=== PATIENT | female | born 1990 | race Caucasian/White ===

== ENCOUNTER → 2017-03-21 15:00 | Outpatient (CLI) | payer MEDICAID, SELFPAY | PROVIDERS: Family Provider Internal Medicine; PCP Internal Medicine; Visit Provider Nurse Practitioner Women's Health | DX: R30.0 Dysuria (principal) | CPT/HCPCS: 87077; 87086; 87088; 87186 ==

== ENCOUNTER → 2017-04-07 14:37 | Outpatient (CLI) | payer MEDICAID, SELFPAY ==
[2017-04-07 16:39] LABS: Absolute Lymphocyte Count 2.45 X10^3/ul (0.83-4.51); Absolute Neutrophil Count 4.9 X10^3/uL (2.0-7.7); Basophil# 0.01 X10^3/uL; Basophil% 0.1 % (0-1); Eosinophil# 0.05 X10^3/uL; Eosinophils% 0.6 % (0-5); Hematocrit 36.7 % (37-47); Hemoglobin 12.3 g/dl (12.0-15.0); Lymphocyte # 2.45 X10^3/ul (4.0); Lymphocyte % 29.7 % (19-41); Mean Corp Hgb Conc 33.5 g/gl (32-36); Mean Corpuscular Hgb 29.6 pg (27.0-32.0); Mean Corpuscular Volume 88.2 fL (81-99); Mean Platelet Vol. 9.6 fl (6.2-12.0); Monocyte# 0.86 X10^3/uL; Monocyte% 10.4 % (0-10); Neutrophil # 4.88 X10^3/uL (2.7-7.7); Neutrophil % 59.1 % (47-70); Platelet Count 314 K/mm3 (150-450); RBC Distribution Width CV 13.3 % (11.6-14.6); RBC Distribution Width SD 42.8 fl (35.1-43.9); Red Blood Count 4.16 M/mm3 (4.2-5.4); White Blood Count 8.3 K/mm3 (4.4-11.0)
[2017-04-07 16:40] LABS: POSITIVE COUNT NO; POSITIVE DIFFERENTIAL NO; POSITIVE MORPHOLOGY NO
[2017-04-07 17:38] LABS: Rubella IgG 46.4 IU/mL
[2017-04-09 01:51] LABS: Rapid Plasmin Reagin (RPR) NONREACTIVE (NONREACTIVE)
[2017-04-09 08:08] LABS: HIV 1/0/2 SCREEN 4TH GEN Non Reactive (Non Reactive)
[2017-04-09 11:11] LABS: HEPATITIS B SURFACE AG Negative (Negative)
== END ==
PROVIDERS: Family Provider Internal Medicine; PCP Internal Medicine; Visit Provider Obstetrics & Gynecology
DX: N92.6 Irregular menstruation, unspecified (principal)
CPT/HCPCS: 36415; 85025; 86592; 86703; 86762; 86850; 86900; 87340

== ENCOUNTER → 2017-05-08 17:26 | Outpatient (CLI) | payer MEDICAID, SELFPAY | PROVIDERS: Family Provider Internal Medicine; PCP Internal Medicine; Visit Provider Obstetrics & Gynecology | DX: Z34.90 Encounter for supervision of normal pregnancy, unspecified, unspecified trimester (principal) | CPT/HCPCS: 87077; 87086; 87088; 87186 ==

== ENCOUNTER → 2017-05-26 11:24 | Outpatient (CLI) | payer MEDICAID, SELFPAY ==
--- NOTE | 2017-05-26 11:25 | US_ITS ---
STUDY: SECOND AND THIRD TRIMESTER OBSTETRICAL ULTRASOUND REASON FOR EXAM: Female, 26 years old. Routine survey. LMP: January 12, 2017. TECHNIQUE: Transabdominal PRIOR ULTRASOUND: None. FINDINGS: There is a single intrauterine fetus. The fetus is in a cephalic presentation. There is demonstrated cardiac activity with a heart rate of 150 bpm. There is a normal amniotic fluid volume. The largest amniotic fluid pocket measures 6.8 cm x 5.7 cm. The placenta is anterior with a marginal previa. There are Grade 0 placental changes. The cervix measures 5.5 cm in length. The bilateral adnexal regions are normal. BIOMETRY: BPD: 4.7 cm: 20 weeks, 3 days HC: 17.6 cm: 20 weeks, 1 days AC: 14.9 cm: 20 weeks, 2 days FL: 3.5 cm: 21 weeks, 0 days CI: 79% FL/BPD: 73% FL/HC: FL/AC: 23% HC/AC: 1.18 age by current US: 20 weeks, 4 days. RUY by current US: October 09, 2017. Estimated weight: 355 grams, +/- 50 grams, 98 %. Age by LMP: 19 weeks, 1 days. RUY by LMP: October 19, 2017. ANATOMY: Gender: Male Cranium: Normal lateral ventricles. Normal choroid plexus. Normal cerebellum. Normal cisterna magna. Normal face, nose and lips. Chest: Normal 4-chamber heart. Abdomen/Pelvis: Normal diaphragm. Normal stomach. Normal abdominal wall. Normal cord insertion. Normal 3 vessel cord. Normal kidneys. Normal bladder. Spine: Normal cervical spine. Normal thoracic spine. Normal lumbar spine. Normal sacrum. Extremities: Normal bilateral upper extremities. Normal bilateral lower extremities. US/OB Anatomy Scan IMPRESSION: There is a single live intrauterine gestation with a mean gestational age of 20 weeks and 4 days. Electronically Signed: Memo Carroll MD at 20:56 EDT Tel [phone], Service support ,
== END ==
PROVIDERS: Family Provider Internal Medicine; PCP Internal Medicine; Visit Provider Obstetrics & Gynecology
DX: Z34.81 Encounter for supervision of other normal pregnancy, first trimester (principal)
CPT/HCPCS: 76805

== ENCOUNTER → 2017-06-21 16:26 | Outpatient (CLI) | payer MEDICAID, SELFPAY | PROVIDERS: Family Provider Internal Medicine; PCP Internal Medicine; Visit Provider Nurse Practitioner Women's Health | DX: O09.90 Supervision of high risk pregnancy, unspecified, unspecified trimester (principal); Z3A.00 Weeks of gestation of pregnancy not specified | CPT/HCPCS: 87086; 87088 ==

== ENCOUNTER 2017-07-07 06:51 | Emergency (ER) | payer MEDICAID, SELFPAY ==
[2017-07-07 06:52] VITALS: BP 134/60; PULSE 88; RESP 17; TEMP 36.4; O2SAT 100; BMI 32.6
[2017-07-07] MEDS: 0.9% Normal Saline 1,000 ML 1000 ML IV (07:17)
[2017-07-07] MEDS: Ondansetron 4 MG/2 ML Vial IV (07:17)
--- NOTE | 2017-07-07 07:26 | ED.VISSUMM ---
- ER Visit Summary Date of Service: 07/07/17 Chief Complaint: Nausea, vomiting and diarrhea History of Present Illness: The patient is a 26 F who is 25 weeks and 1 day . Ab0. Due date is 10-19-17. Patient is in the care of Dr. Ever Hart of [facility]. She states she has had nausea vomiting diarrhea intermittently for last week or so. Denies any dysuria hematuria. No fever. Denies any vaginal bleeding or discharge. Physical Examination: Well-appearing young female. Vital signs are stable afebrile. H EENT exam moist wheeze members. Neck nontender no lymphadenopathy. Lungs clear to auscultation bilaterally. Heart regular rate and rhythm no murmur. Abdomen soft. Gravid nontender uterus. Normal bowel sounds. The right upper right lower quadrant nontender. No peritoneal signs. She is moving all 4 extremities. No edema. Back exam nontender no CVA tenderness. Neurologically she is awake alert without focal motor deficits. Test Results: None Emergency Department Course and Treatment: Will be treated with IV fluids, Zofran and have a p.o. challenge. Treatment Plan: She will be reevaluated. Once she can hold down p.o. fluids she will be discharged home. Repeat exam she is doing better at 08 25. Positive p.o. fluids. She was also given Imodium for diarrhea. Disposition: Discharge Impression: Acute nausea, vomiting and diarrhea. at 25 weeks This note was generated with [employer] dictation software. It may contain incorrect words, spelling, and punctuation that were not noted in review of the chart prior to signing ED Disposition - Plan for ED Patient: Disposition: Home or Assisted Living Chief Complaint: Nausea/Vomiting/Diarrhea Instructions: ED Vomiting Diarrhea Nonspecific Ad Referrals: Shanthi Johnson MD [STAFF PHYSICIAN] - 3-5 Days if not improving Additional Instructions: Plenty of fluids and rest. Advance her diet as tolerated. Use the Zofran as needed for nausea. Follow-up the [facility] physician if not improving or return to ER feeling worse.
--- NOTE | 2017-07-07 07:31 | ED.DCSUM_ITS ---
- ER Visit Summary Date of Service: 07/07/17 Chief Complaint: Nausea, vomiting and diarrhea History of Present Illness: The patient is a 26 F who is 25 weeks and 1 day . Ab0. Due date is 10-19-17. Patient is in the care of Dr. Ever Hart of [facility]. She states she has had nausea vomiting diarrhea intermittently for last week or so. Denies any dysuria hematuria. No fever. Denies any vaginal bleeding or discharge. Physical Examination: Well-appearing young female. Vital signs are stable afebrile. H EENT exam moist wheeze members. Neck nontender no lymphadenopathy. Lungs clear to auscultation bilaterally. Heart regular rate and rhythm no murmur. Abdomen soft. Gravid nontender uterus. Normal bowel sounds. The right upper right lower quadrant nontender. No peritoneal signs. She is moving all 4 extremities. No edema. Back exam nontender no CVA tenderness. Neurologically she is awake alert without focal motor deficits. Test Results: None Emergency Department Course and Treatment: Will be treated with IV fluids, Zofran and have a p.o. challenge. Treatment Plan: She will be reevaluated. Once she can hold down p.o. fluids she will be discharged home. Repeat exam she is doing better at 08 25. Positive p.o. fluids. She was also given Imodium for diarrhea. Disposition: Discharge Impression: Acute nausea, vomiting and diarrhea. at 25 weeks This note was generated with [employer] dictation software. It may contain incorrect words, spelling, and punctuation that were not noted in review of the chart prior to signing ED Disposition - Plan for ED Patient: Disposition: Home or Assisted Living Chief Complaint: Nausea/Vomiting/Diarrhea Instructions: ED Vomiting Diarrhea Nonspecific Ad Referrals: Shanthi Johnson MD [STAFF PHYSICIAN] - 3-5 Days if not improving Additional Instructions: Plenty of fluids and rest. Advance her diet as tolerated. Use the Zofran as needed for nausea. Follow-up the [facility] physician if not improving or return to ER feeling worse.
[2017-07-07] MEDS: proMETHazine 25 MG/ML Syringe 12.5 MG IV (07:42)
[2017-07-07] MEDS: Loperamide 2 MG Capsule 4 MG PO (08:17)
[2017-07-07 08:30] LABS: Absolute Lymphocyte Count 3.07 X10^3/ul (0.83-4.51); Absolute Neutrophil Count 4.8 X10^3/uL (2.0-7.7); Basophil# 0.01 X10^3/uL; Basophil% 0.1 % (0-1); Eosinophil# 0.21 X10^3/uL; Eosinophils% 2.3 % (0-5); Hematocrit 30.5 % (37-47); Hemoglobin 10.4 g/dl (12.0-15.0); Lymphocyte # 3.07 X10^3/ul (4.0); Lymphocyte % 33.7 % (19-41); Mean Corp Hgb Conc 34.1 g/gl (32-36); Mean Corpuscular Hgb 31.6 pg (27.0-32.0); Mean Corpuscular Volume 92.7 fL (81-99); Mean Platelet Vol. 9.1 fl (6.2-12.0); Monocyte# 0.99 X10^3/uL; Monocyte% 10.9 % (0-10); Neutrophil # 4.79 X10^3/uL (2.7-7.7); Neutrophil % 52.7 % (47-70); POSITIVE COUNT NO; POSITIVE DIFFERENTIAL NO; POSITIVE MORPHOLOGY NO; Platelet Count 308 K/mm3 (150-450); RBC Distribution Width CV 13.9 % (11.6-14.6); RBC Distribution Width SD 45.7 fl (35.1-43.9); Red Blood Count 3.29 M/mm3 (4.2-5.4); White Blood Count 9.1 K/mm3 (4.4-11.0)
[2017-07-07 08:33] LABS: Anion Gap 7 (5-15); BUN 7 mg/dL (7-18); BUN/Creat Ratio 11.6 RATIO (10-20); Calcium,Total 8.2 mg/dL (8.5-10.1); Chloride 108 mmol/L (98-107); EST Glomerular Filtration Rate 125 mL/min (>60); Est Glom Filt Rate - Afr Amer 151 mL/min (>60); Estimated Creatinine Clearance 120.54 ml/min; Glucose 84 mg/dL (74-106); Potassium 3.5 mmol/L (3.5-5.1); Sodium Level 139 mmol/L (136-145)
[2017-07-07 08:41] VITALS: BP 105/66; BP 107/60; BP 107/62; PULSE 76; PULSE 77; PULSE 84
[2017-07-07 08:45] VITALS: BP 105/66; PULSE 84; TEMP -10; TEMP 14; O2SAT 100
== END 2017-07-07 08:55 | disposition home or self-care (01) ==
PROVIDERS: Emergency Provider Emergency Medicine
DX: O21.2 Late vomiting of pregnancy (principal); O26.891 Other specified pregnancy related conditions, first trimester; R19.7 Diarrhea, unspecified; Z3A.25 25 weeks gestation of pregnancy; Z87.891 Personal history of nicotine dependence
CPT/HCPCS: 80048; 85025; 96361; 96374; 96375; 99284; J7030; A4216; J2405

== ENCOUNTER → 2017-07-21 14:12 | Outpatient (CLI) | payer MEDICAID, SELFPAY ==
[2017-07-21 15:25] LABS: Absolute Lymphocyte Count 2.19 X10^3/ul (0.83-4.51); Absolute Neutrophil Count 3.9 X10^3/uL (2.0-7.7); Basophil# 0.01 X10^3/uL; Basophil% 0.1 % (0-1); Eosinophil# 0.06 X10^3/uL; Eosinophils% 0.9 % (0-5); Hematocrit 29.3 % (37-47); Hemoglobin 9.7 g/dl (12.0-15.0); Lymphocyte # 2.19 X10^3/ul (4.0); Lymphocyte % 31.6 % (19-41); Mean Corp Hgb Conc 33.1 g/gl (32-36); Mean Corpuscular Hgb 29.3 pg (27.0-32.0); Mean Corpuscular Volume 88.5 fL (81-99); Mean Platelet Vol. 8.9 fl (6.2-12.0); Monocyte# 0.79 X10^3/uL; Monocyte% 11.4 % (0-10); Neutrophil # 3.86 X10^3/uL (2.7-7.7); Neutrophil % 55.9 % (47-70); Platelet Count 304 K/mm3 (150-450); RBC Distribution Width CV 13.2 % (11.6-14.6); Red Blood Count 3.31 M/mm3 (4.2-5.4); White Blood Count 6.9 K/mm3 (4.4-11.0)
[2017-07-21 15:37] LABS: Glucose Challenge Gest 1H 50g 86 mg/dL (70-140)
[2017-07-21 15:45] LABS: POSITIVE COUNT NO; POSITIVE DIFFERENTIAL NO; POSITIVE MORPHOLOGY NO
== END ==
PROVIDERS: Nurse Practitioner Women's Health; Visit Provider Obstetrics & Gynecology
DX: O09.90 Supervision of high risk pregnancy, unspecified, unspecified trimester (principal)
CPT/HCPCS: 82950; 85025; 86850; 86900

== ENCOUNTER → 2017-07-24 15:49 | Outpatient (CLI) | payer MEDICAID, SELFPAY ==
--- NOTE | 2017-07-24 15:49 | DT_ITS ---
This patient was seen during an EMR downtime July 24, 2017 - July 31, 2017. This patient may have a combination of paper and electronic documentation or all paper documentation. All documentation is viewable within the e-chart portion of [employer] for each patient visit.
--- NOTE | 2017-07-24 16:00 | US_ITS ---
STUDY: SECOND AND THIRD TRIMESTER OBSTETRICAL ULTRASOUND - LIMITED REASON FOR EXAM: Female, 26 years old. Placenta previa LMP: PRIOR ULTRASOUND: None. TECHNIQUE: Transabdominal ultrasound evaluation was performed. FINDINGS: There is a single intrauterine fetus. The fetus is in a cephalic presentation. There is demonstrated cardiac activity with a heart rate of 138 bpm. There is a normal amniotic fluid volume. The largest amniotic fluid pocket measures 7.1 cm. The amniotic fluid index (NICK) is within normal limits. The placenta is is not seen anywhere near the internal os of the cervix.. There are Grade 0 placental changes. The cervix measures cm in length. BIOMETRY: BPD: 7.8 cm 31 weeks, 3 days HC: 28.7 cm 31 weeks, 5 days AC: 25.4 cm : 29 weeks, 4 days FL: 5.7 cm: 29 weeks, 6 days age by current US: 30 weeks, 5 days. RUY by current US: 09/27/2017. Estimated weight: 1489 grams, +/- 217 grams, 98 percentile. Gender: US/OB Limited With Biometrics IMPRESSION: There is no placenta previa and no abruptio placentae. The fetus is in a cephalic presentation and longitudinal lie with composite measurements averaging out to be equivalent to 30 weeks 5 days +/- 5 days with an expected date of delivery of 09/27/2017. There is an estimated weight 148 9 g. This is in the 98th percentile Electronically Signed: Kali Julio, at 7:51 EDT Tel , Service support ,
== END ==
PROVIDERS: Visit Provider Nurse Practitioner Women's Health
DX: O44.03 Complete placenta previa NOS or without hemorrhage, third trimester (principal); Z3A.30 30 weeks gestation of pregnancy
CPT/HCPCS: 76816

== ENCOUNTER 2017-08-02 18:17 | Emergency (ER) | payer MEDICAID, SELFPAY ==
[2017-08-02 18:18] VITALS: BP 137/80; PULSE 101; RESP 18; TEMP 37.1; O2SAT 99; BMI 32.2
--- NOTE | 2017-08-02 19:05 | EKG12_ITS ---
Test Reason : DIZZINESS Blood Pressure : / mmHG Vent. Rate : 093 BPM Atrial Rate : 093 BPM P-R Int : 124 ms QRS Dur : 088 ms QT Int : 354 ms P-R-T Axes : 015 037 -05 degrees QTc Int : 440 ms Normal sinus rhythm Nonspecific T wave abnormality Abnormal ECG Confirmed by WIN BOLAND, JASON ([id number]), senior editor ABE MEYER ([id number]) on 08/04/2017 2:47:31 PM Referred By: Shanthi Johnson Confirmed By:JASON WALDEN MD
--- NOTE | 2017-08-02 19:09 | ED.DCSUM_ITS ---
- ER Visit Summary Date of Service: 08/02/17 Chief Complaint: Dizzy and History of Present Illness: The patient is a 26 F whose felt weak and dizzy for a while but symptoms seem to be worse today. She recently found out she is anemic and picked up iron pills today. She is currently 28 weeks . She has had normal movement. Physical Examination: Blood pressure is 137/80, temperature 98.7, heart rate 101 , respiratory rate 18, pulse ox 99% on room air. Patient sitting upright in bed no acute distress. She is alert and talkative. Head neck examination is unremarkable. Heart is regular rate and rhythm. Lung sounds are clear. Abdomen is soft and gravid. There is no focal tenderness. Test Results: EKG is sinus at 93 with lateral T-wave flattening. This is unchanged compared to prior study from August 2012. CBC was a hemoglobin of 9.5 and hematocrit 29.1. This is compared to labs on July 21 of 9.7 and 29.3. Chemistry studies are significant for potassium of 3.1. Urinalysis is unremarkable. Emergency Department Course and Treatment: Patient was given IV fluids here. Repeat vital signs include a blood pressure 112/78 heart rate of 95. heart tones are measured at 152. I spoke with Dr. Johnson, the patient's OB /COMMUNITY ASSISTANT. Patient will be given potassium replacement for a few days. She is instructed to take her iron supplements. She is instructed to take it easy for the next few days and I will write her a work note for tomorrow. Treatment Plan: [] Disposition: Discharge Impression: Hypokalemia This note was generated with [employer] dictation software. It may contain incorrect words, spelling, and punctuation that were not noted in review of the chart prior to signing ED Disposition - Plan for ED Patient: Chief Complaint: Dizziness Referrals: Care Physician,No Primary [Primary Care Provider] -
[2017-08-02] MEDS: 0.9% Normal Saline 1,000 ML 150 ML IV (19:31)
[2017-08-02 19:36] LABS: Bedside Glucose 80 mg/dL (70-110)
[2017-08-02 19:49] LABS: Absolute Lymphocyte Count 2.37 X10^3/ul (0.83-4.51); Absolute Neutrophil Count 3.8 X10^3/uL (2.0-7.7); Basophil# 0.02 X10^3/uL; Basophil% 0.3 % (0-1); Eosinophil# 0.13 X10^3/uL; Eosinophils% 1.8 % (0-5); Hematocrit 29.1 % (37-47); Hemoglobin 9.5 g/dl (12.0-15.0); Lymphocyte # 2.37 X10^3/ul (4.0); Lymphocyte % 33.1 % (19-41); Mean Corp Hgb Conc 32.6 g/gl (32-36); Mean Corpuscular Hgb 28.4 pg (27.0-32.0); Mean Corpuscular Volume 87.1 fL (81-99); Mean Platelet Vol. 9.1 fl (6.2-12.0); Monocyte# 0.83 X10^3/uL; Monocyte% 11.6 % (0-10); Neutrophil # 3.81 X10^3/uL (2.7-7.7); Neutrophil % 53.2 % (47-70); Platelet Count 305 K/mm3 (150-450); RBC Distribution Width CV 13.1 % (11.6-14.6); RBC Distribution Width SD 42.3 fl (35.1-43.9); Red Blood Count 3.34 M/mm3 (4.2-5.4); White Blood Count 7.2 K/mm3 (4.4-11.0)
[2017-08-02 19:51] LABS: POSITIVE COUNT NO; POSITIVE DIFFERENTIAL NO; POSITIVE MORPHOLOGY NO
[2017-08-02 19:57] LABS: Anion Gap 7 (5-15); BUN 8 mg/dL (7-18); BUN/Creat Ratio 13.2 RATIO (10-20); Calcium,Total 8.5 mg/dL (8.5-10.1); Chloride 106 mmol/L (98-107); Creatinine, Serum 0.61 mg/dL (0.55-1.02); EST Glomerular Filtration Rate 124 mL/min (>60); Est Glom Filt Rate - Afr Amer 151 mL/min (>60); Estimated Creatinine Clearance 118.57 ml/min; Glucose 83 mg/dL (74-106); Potassium 3.1 mmol/L (3.5-5.1); Sodium Level 139 mmol/L (136-145)
[2017-08-02 20:07] LABS: Mucous, Urine 0 SEEN /hpf (<or=2+)
[2017-08-02 20:11] LABS: Color, Urine Yellow (Yellow); Glucose, Dipstick Normal (Normal); Ketone-Dipstick Negative (Negative); Leukocyte Esterase-Dipstick 25 /ul (Negative); Nitrite-Dipstick Negative (Negative); Occult Blood-Urine Negative /ul (Negative); Protein-Dipstick Negative (Negative); Specific Gravity, Urine 1.015 (1.002-1.030); Urine Bilirubin Dipstick Negative (Negative); Urine Clarity Cloudy (Clear); Urine Urobilinogen Normal (Normal)
[2017-08-02 20:24] LABS: Bacteria RARE /hpf (None Seen); Red Blood Cells-Urine 0-5 SEEN /hpf (0-5); Squamous Epithelial Cells - UA 5-10 SEEN /hpf (5-10); White Blood Cells 0-5 SEEN /hpf (0-5)
[2017-08-02 20:29] VITALS: BP 112/70; PULSE 95; RESP 16; O2SAT 100
--- NOTE | 2017-08-02 20:45 | ED.RN ---
THIS NURSE CHECKED THE PT HEART TONES, THEY WERE 152
--- NOTE | 2017-08-02 20:50 | ED.DEP ---
ED Disposition - Plan for ED Patient: Disposition: Home or Assisted Living Chief Complaint: Dizziness Instructions: ED Potassium Deficiency Prescriptions: Potassium Chloride [K-Dur] 20 meq PO BID #10 tablet Referrals: Shanthi Johnson MD [STAFF PHYSICIAN] - Keep Ching appointment
[2017-08-02 21:03] VITALS: BP 119/75; PULSE 97; RESP 16; O2SAT 100
== END 2017-08-02 21:08 | disposition home or self-care (01) ==
PROVIDERS: Emergency Provider Emergency Medicine
DX: O26.893 Other specified pregnancy related conditions, third trimester (principal); E87.6 Hypokalemia; O99.013 Anemia complicating pregnancy, third trimester; Z3A.28 28 weeks gestation of pregnancy; Z87.891 Personal history of nicotine dependence; Z79.899 Other long term (current) drug therapy
CPT/HCPCS: 80048; 81001; 82962; 85025; 93005; 96360; 96361; 99285; J7030; J7040; A4216

== ENCOUNTER 2017-08-07 08:55 | Emergency (ER) | payer MEDICAID, SELFPAY ==
[2017-08-07 08:56] VITALS: BP 139/83; PULSE 97; RESP 18; TEMP 36.6; O2SAT 100; BMI 32.2
--- NOTE | 2017-08-07 09:12 | ED.VISSUMM ---
- ER Visit Summary Date of Service: 08/07/17 Chief Complaint: Vomiting and diarrhea History of Present Illness: The patient is a 26 F who with no primary care physician. She is a at 29 weeks and [address] Ever Hart. She reports that at 4:00 this morning she began having vomiting and diarrhea. She has had multiple episodes of each. No blood in either. No black tarry stools. She reports that she has abdominal pain that began after the vomiting. She describes as a crampy pain is 10 out of 10 severity. She denies any vaginal bleeding or discharge. She has had normal movement. No dysuria. Patient denies sick contacts. Has not been camping out of the country. No possible bad food exposure. Does not drink well water. No recent antibiotic use. Physical Examination: Vitals: Stable. Afebrile. General: Well-nourished and well-developed. Head: Normocephalic atraumatic. Neck: Supple, no lymphadenopathy. No JVD. Nontender. Cardiovascular: Regular rate and rhythm. No murmurs. Respiratory: No respiratory distress. Clear to auscultation bilaterally. Abdominal: Soft, mild diffuse tenderness to palpation, nondistended, normal bowel sounds. No guarding, rebound, or peritoneal signs. Gravid uterus. Back: Nontender. Extremities: Nontender, no edema. Skin: Normal color, no rash. Neurologic: Alert and oriented ?3. Cranial nerves II through XII are intact. Normal strength and sensation. Psych: Normal affect. Test Results: CBC is marked for a white count of 12.0, H&H of 10.7 33.2. Chem-7 is marked potassium 3.3, BUN/creatinine ratio of 11.6, calcium 8.7. Emergency Department Course and Treatment: Patient had an IV placed. She was given 2 L normal saline and Zofran IV. She is resting comfortably. She has had no vomiting or diarrhea while here. Treatment Plan: Patient reports that she already has K-Dur at home. She will be discharged with Zofran for her nausea. Instructed to follow-up Dr. Desmond Johnson, who is next electrical power station technician for no doc, in 1-2 days if not improving. Follow-up Dr. Johnson as scheduled. Return to the emergency department for any worsening symptoms. Disposition: To home in improved and stable condition. Impression: 1. Vomiting/diarrhea. 2. Third trimester . This note was generated with [employer] dictation software. It may contain incorrect words, spelling, and punctuation that were not noted in review of the chart prior to signing ED Disposition - Plan for ED Patient: Chief Complaint: Nausea/Vomiting/Diarrhea Instructions: ED Vomiting Diarrhea Nonspecific Ad Prescriptions: Ondansetron [Zofran Odt] 4 mg PO Q8H PRN PRN #10 tablet PRN Reason: Nausea Referrals: Desmond Johnson MD [STAFF PHYSICIAN] - 1-2 Days if not improving
[2017-08-07 09:30] LABS: Hematocrit 33.2 % (37-47); Hemoglobin 10.7 g/dl (12.0-15.0); Mean Corp Hgb Conc 32.2 g/gl (32-36); Mean Corpuscular Hgb 27.9 pg (27.0-32.0); Mean Corpuscular Volume 86.7 fL (81-99); Platelet Count 289 K/mm3 (150-450); RBC Distribution Width CV 13.1 % (11.6-14.6); Red Blood Count 3.83 M/mm3 (4.2-5.4); Scan Indicated on CBC? Y/N NO
[2017-08-07] MEDS: Ondansetron 4 MG/2 ML Vial IV (09:38)
[2017-08-07] MEDS: 0.9% Normal Saline 1,000 ML 1000 ML IV ×2 (09:38→10:34)
[2017-08-07 09:47] LABS: Anion Gap 7 (5-15); BUN 7 mg/dL (7-18); BUN/Creat Ratio 11.6 RATIO (10-20); Calcium,Total 8.3 mg/dL (8.5-10.1); Chloride 106 mmol/L (98-107); EST Glomerular Filtration Rate 125 mL/min (>60); Est Glom Filt Rate - Afr Amer 151 mL/min (>60); Estimated Creatinine Clearance 120.54 ml/min; Glucose 82 mg/dL (74-106); Potassium 3.3 mmol/L (3.5-5.1); Sodium Level 136 mmol/L (136-145)
== END 2017-08-07 11:30 | disposition home or self-care (01) ==
PROVIDERS: Emergency Provider Emergency Medicine
DX: O21.2 Late vomiting of pregnancy (principal); O26.893 Other specified pregnancy related conditions, third trimester; R19.7 Diarrhea, unspecified; Z3A.29 29 weeks gestation of pregnancy; Z79.899 Other long term (current) drug therapy
CPT/HCPCS: 80048; 85027; 96361; 96374; 99284; J7030; J2405

== ENCOUNTER 2017-08-18 19:39 | Emergency (ER) | payer OTHER, MEDICAID, SELFPAY ==
[2017-08-18 19:40] VITALS: BP 109/66; PULSE 83; RESP 14; TEMP 36.1; O2SAT 100; BMI 32.9
--- NOTE | 2017-08-18 19:46 | ED.RN ---
THIS RN EDUCATED PT TO FILL OUT A QUANTROS. PT REPORTS HER ORACLE DATABASE CONSULTANT WAS GOING TO SHOW HER HOW TO PROPERLY FILE A REPORT.
--- NOTE | 2017-08-18 19:59 | CT_ITS ---
STUDY: CT FACIAL BONES WITHOUT CONTRAST REASON FOR EXAM: Female, 26 years old. Right facial injury RADIATION DOSAGE (If Supplied By Facility): CTDIvol = ( 29.38 ) mGy, DLP = ( 510.73 ) mGycm TECHNIQUE: The patient was scanned in a multi detector CT scanner. Sagittal and coronal images were reconstructed. Individualized dose optimization techniques were used for this CT. COMPARISON: None. FINDINGS: Normal soft tissue structures. Normal orbital ire[place] and orbital contents. Normal nasal bones and anterior nasal spine. Normal facial bones. There is no demonstrated fracture. Normal visualized paranasal sinuses. CT/Sinus/Facial Bone IMPRESSION: Normal unenhanced CT of the facial bones. Electronically Signed: Devendra Salazar MD at 20:24 EDT , Service support ,
--- NOTE | 2017-08-18 20:29 | ED.VISSUMM ---
- ER Visit Summary Date of Service: 08/18/17 Chief Complaint: [Facial injury] History of Present Illness: The patient is a 26 F [presents to the emergency department with complaint of facial pain after sustaining an injury to the right side of her face 2 days ago. 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 Patient then attempted to punch the dispenser loose and the dispenser came up and struck her in the right side of the face. No loss of consciousness. Patient has been taking ibuprofen and Tylenol but complains of headache and right-sided facial pain. Patient complains of pain when chewing. Patient did vomit once yesterday but she is 31 weeks and is not sure if this was related to head injury versus just her nausea and vomiting. Patient states that the injury happened while at work.] Physical Examination: [HEENT-PERRLA, EOMI. Cranial nerves II through XII grossly intact. TMs clear. Mucous membranes moist. No adenopathy. Patient has some mild ecchymosis noted to the right lateral orbit. She has some soft tissue swelling over the right zygomatic arch. No bony step-offs or depressions noted. Extraocular muscle movement is normal. No evidence of entrapment. Cardiovascular-regular rate and rhythm without murmur or ectopy Lungs-clear to auscultation, chest wall stable without crepitus or subcu emphysema Abdomen-normoactive bowel sounds, soft, nontender, no rebound or rigidity, no peritoneal signs. Extremities-intact ?4, normal range of motion, normal pulses, atraumatic] Test Results: [CT of the facial bones was negative for fractures] Emergency Department Course and Treatment: [Patient advised use Tylenol for discomfort] Treatment Plan: [Tylenol and follow-up with corporate care] Disposition: [Discharged home in stable condition] Impression: [Facial contusion] This note was generated with [employer] dictation software. It may contain incorrect words, spelling, and punctuation that were not noted in review of the chart prior to signing ED Disposition - Plan for ED Patient: Chief Complaint: Headache Referrals: Lili Goddard MD [Primary Care Provider] -
--- NOTE | 2017-08-18 20:32 | ED.DCSUM_ITS ---
- ER Visit Summary Date of Service: 08/18/17 Chief Complaint: [Facial injury] History of Present Illness: The patient is a 26 F [presents to the emergency department with complaint of facial pain after sustaining an injury to the right side of her face 2 days ago. 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 Patient then attempted to punch the dispenser loose and the dispenser came up and struck her in the right side of the face. No loss of consciousness. Patient has been taking ibuprofen and Tylenol but complains of headache and right-sided facial pain. Patient complains of pain when chewing. Patient did vomit once yesterday but she is 31 weeks and is not sure if this was related to head injury versus just her nausea and vomiting. Patient states that the injury happened while at work.] Physical Examination: [HEENT-PERRLA, EOMI. Cranial nerves II through XII grossly intact. TMs clear. Mucous membranes moist. No adenopathy. Patient has some mild ecchymosis noted to the right lateral orbit. She has some soft tissue swelling over the right zygomatic arch. No bony step-offs or depressions noted. Extraocular muscle movement is normal. No evidence of entrapment. Cardiovascular-regular rate and rhythm without murmur or ectopy Lungs-clear to auscultation, chest wall stable without crepitus or subcu emphysema Abdomen-normoactive bowel sounds, soft, nontender, no rebound or rigidity, no peritoneal signs. Extremities-intact ?4, normal range of motion, normal pulses, atraumatic] Test Results: [CT of the facial bones was negative for fractures] Emergency Department Course and Treatment: [Patient advised use Tylenol for discomfort] Treatment Plan: [Tylenol and follow-up with corporate care] Disposition: [Discharged home in stable condition] Impression: [Facial contusion] This note was generated with [employer] dictation software. It may contain incorrect words, spelling, and punctuation that were not noted in review of the chart prior to signing ED Disposition - Plan for ED Patient: Chief Complaint: Headache Referrals: Lili Goddard MD [Primary Care Provider] -
--- NOTE | 2017-08-18 20:32 | ED.DEP ---
ED Disposition - Plan for ED Patient: Chief Complaint: Headache Instructions: ED Contusion Face Referrals: Lili Goddard MD [Primary Care Provider] - [facility] [GROUP OF PHYSICIANS] - 3-5 Days
--- NOTE | 2017-08-18 20:33 | DCINST.ED_ITS ---
ED Disposition - Plan for ED Patient: Chief Complaint: Headache Instructions: ED Contusion Face Referrals: Lili Goddard MD [Primary Care Provider] - [facility] [place] [GROUP OF PHYSICIANS] - 3-5 Days
[2017-08-18 20:52] VITALS: BP 131/70; PULSE 87; RESP 17; O2SAT 98
== END 2017-08-18 20:53 | disposition home or self-care (01) ==
LOC: ED 20:02
PROVIDERS: Emergency Provider Emergency Medicine; Family Provider Internal Medicine; PCP Internal Medicine
DX: O9A.213 Injury, poisoning and certain other consequences of external causes complicating pregnancy, third trimester (principal); S00.11XA Contusion of right eyelid and periocular area, initial encounter; Z3A.31 31 weeks gestation of pregnancy; W22.8XXA Striking against or struck by other objects, initial encounter; Y93.9 Activity, unspecified; Y92.9 Unspecified place or not applicable
CPT/HCPCS: 70486; 99283

== ENCOUNTER 2017-08-20 18:30 | Outpatient (CLI) | payer MEDICAID, SELFPAY ==
--- NOTE | 2017-08-20 19:07 | OB.TRI.NOTE ---
- Problem List (1) False labor Status: Acute History of Present Illness Date of Service: 08/20/17 Was patient seen by the physician?: Yes Reason For Visit: R/O LABOR Date of Service: 08/20/17 Final RUY: 10/19/17 Gestational age: 31 Weeks and 3 Days History of Present Illness: co quesitonable loss of fluid and some contractions Allergies naproxen Allergy (Verified 08/18/17 19:40) Rash Penicillins Allergy (Verified 08/18/17 19:40) Hives also has hematemesis - Pertinent Past Medical History Medical History: Past Medical History (Last Reviewed 08/15/17 @ 15:12 by Vero Interiano) Depression Surgical History: Past Surgical History (Last Reviewed 08/15/17 @ 15:12 by Vero Interiano) delivery delivered NST - FHR Rate Baby A Baseline: 130 Variability:: Moderate Accelerations:: 15 x 15 Decelerations:: None NST Reactive:: Yes FHR Category:: Category I Uterine Activity:: no regular Impression/Plan threatened labor negative SROM no regular ctx reassuring FHT dc home labor precautions
[2017-08-20 19:10] VITALS: BMI 32.3
[2017-08-20 19:30] LABS: ROM Internal Control Test YES-OK TO RESULT pt. (Internal QC); ROM Patient Test Negative (Negative)
[2017-08-20 20:00] VITALS: RESP 18
== END 2017-08-20 20:00 | disposition home or self-care (01) ==
LOC: WPOUT 18:37 → WP 18:37
PROVIDERS: Family Provider Internal Medicine; PCP Internal Medicine; Visit Provider Obstetrics & Gynecology
DX: O60.03 Preterm labor without delivery, third trimester (principal); Z3A.31 31 weeks gestation of pregnancy
CPT/HCPCS: 59025; 59050; 84112; 99218; G0378

== ENCOUNTER → 2017-09-13 09:56 | Outpatient (CLI) | payer MEDICAID, SELFPAY ==
[2017-09-13 10:21] LABS: Absolute Lymphocyte Count 3.04 X10^3/ul (0.83-4.51); Absolute Neutrophil Count 3.5 X10^3/uL (2.0-7.7); Basophil# 0.01 X10^3/uL; Basophil% 0.1 % (0-1); Eosinophil# 0.14 X10^3/uL; Eosinophils% 1.8 % (0-5); Hematocrit 29.3 % (37-47); Hemoglobin 9.2 g/dl (12.0-15.0); Lymphocyte # 3.04 X10^3/ul (4.0); Lymphocyte % 39.7 % (19-41); Mean Corp Hgb Conc 31.4 g/gl (32-36); Mean Corpuscular Hgb 26.4 pg (27.0-32.0); Mean Platelet Vol. 9.5 fl (6.2-12.0); Monocyte# 0.92 X10^3/uL; Neutrophil # 3.53 X10^3/uL (2.7-7.7); Neutrophil % 46.3 % (47-70); Platelet Count 289 K/mm3 (150-450); RBC Distribution Width CV 13.9 % (11.6-14.6); Red Blood Count 3.49 M/mm3 (4.2-5.4); White Blood Count 7.7 K/mm3 (4.4-11.0)
[2017-09-13 10:26] LABS: POSITIVE COUNT NO; POSITIVE DIFFERENTIAL NO; POSITIVE MORPHOLOGY NO
== END ==
PROVIDERS: Nurse Practitioner Women's Health; Family Provider Internal Medicine; PCP Internal Medicine; Visit Provider Obstetrics & Gynecology
DX: O99.019 Anemia complicating pregnancy, unspecified trimester (principal); Z3A.00 Weeks of gestation of pregnancy not specified
CPT/HCPCS: 36415; 85025

== ENCOUNTER → 2017-09-19 | Outpatient (CLI) | payer MEDICAID, SELFPAY ==
--- NOTE | 2017-09-19 13:29 | US_ITS ---
STUDY: SECOND AND THIRD TRIMESTER OBSTETRICAL ULTRASOUND - LIMITED REASON FOR EXAM: Female, 26 years old. Assess growth. LMP: 01/12/2017. GA (LMP) 35 week 5 day. RUY 10/19/2017. PRIOR ULTRASOUND: 07/24/2017. TECHNIQUE: Transabdominal ultrasound evaluation was performed. FINDINGS: Single live intrauterine gestation, cardiac rate 144 bpm, breech presentation, footling. Cervix 3.25 cm in length, closed. Placenta grade 2, anterior not low-lying. Amniotic fluid index 13.6 cm, normal, deepest vertical pocket 5.4 cm. BIOMETRY: BPD: 9.44 cm: 38 weeks, 4 days HC: 35.12 cm: 41 weeks, 0 days AC: 34.29 cm: 38 weeks, 2 days FL: 7.29 cm: 37 weeks, 3 days age by current US: 38 weeks, 6 days. RUY by current US: 09/27/2017. age by prior ultrasound 38 weeks 6 days with RUY 09/27/2017. Estimated weight: 3462 grams, +/- 505 grams, 98 percentile. A limited anatomic survey was performed for the purpose of assessing position, viability and dates only. No gross anatomic abnormality was observed. US/OB Limited With Biometrics IMPRESSION: Single live intrauterine gestation in breech presentation with normal amniotic fluid index, no evidence of placenta previa, appropriate cardiac activity. Measurements as above. Measurements on today's study are concordant with prior ultrasound. Electronically Signed: Taurus Rosalina, at 17:19 EDT Tel , Service support ,
== END | disposition home or self-care (01) ==
PROVIDERS: Family Provider Internal Medicine; PCP Internal Medicine; Visit Provider Nurse Practitioner Women's Health
DX: O44.20 Partial placenta previa NOS or without hemorrhage, unspecified trimester (principal); Z3A.00 Weeks of gestation of pregnancy not specified
CPT/HCPCS: 76816

== ENCOUNTER → 2017-09-25 15:52 | Outpatient (CLI) | payer MEDICAID, SELFPAY ==
[2017-09-25 19:38] LABS: Group B Strep DNA By PCR POSITIVE (Negative); Probe Check PASS
== END ==
PROVIDERS: Family Provider Internal Medicine; PCP Internal Medicine; Visit Provider Obstetrics & Gynecology
DX: Z34.90 Encounter for supervision of normal pregnancy, unspecified, unspecified trimester (principal)
CPT/HCPCS: 87653

== ENCOUNTER 2017-10-05 09:21 | Outpatient (CLI) | payer MEDICAID, SELFPAY ==
[2017-10-05 09:22] VITALS: BP 127/74; PULSE 97; RESP 16; TEMP 36.6; O2SAT 99; BMI 33.2
--- NOTE | 2017-10-05 09:37 | ED.DCSUM_ITS ---
- ER Visit Summary Date of Service: 10/05/17 Chief Complaint: [] 38 weeks vomiting and diarrhea started today History of Present Illness: The patient is a 26 F [] approximately 38 weeks scheduled for next week, reports she has been doing well with her no abdominal pain no vaginal bleeding she developed diarrhea and vomiting the last few hours the persisted she states she has had diarrhea constantly no blood no antibiotics no exposures she has had vomiting, she does use Zofran intermittently for the vomiting Zofran to this morning did not help, she has no history of any GI elements or other past history that she reports she denies pain in any part of her body simply sense of nausea and diarrhea Physical Examination: [] She is obviously her vital signs are within normal range head neck chest unremarkable the abdomen is soft obviously she has no abdominal pain she has about 2+ edema in her lower extremities that she has had for some time this is not new she is awake alert moving all 4 her joints are not tender she specifically mentions she has no right upper lower or any pain in her abdomen anywhere she denies abdominal pain or bleeding Test Results: [] Emergency Department Course and Treatment: [] This time clinically she looks well screening labs IV fluids Zofran, heart tones, Medicated IV fluids were given, her screening labs were generally unremarkable, nothing acute see those reports, she felt better after taking fluids she has had no vomiting or diarrhea in the emergency department, we spoke with FINISH MACHINE TENDER they agreed she could be discharged home and then shortly after we had spoke with OB she vomited, continue to complain of being nauseated to the point where she is not physically discharged home, I spoke with Dr. Johnson at this time will transfer the patient to FINISH MACHINE TENDER for further management Treatment Plan: [] Disposition: [] Transfer to FINISH MACHINE TENDER unit Impression: [] Approximately 38 weeks , vomiting and diarrhea This note was generated with [employer] dictation software. It may contain incorrect words, spelling, and punctuation that were not noted in review of the chart prior to signing ED Disposition - Plan for ED Patient: Chief Complaint: Nausea/Vomiting/Diarrhea Referrals: Lili Goddard MD [Primary Care Provider] -
[2017-10-05] MEDS: 0.9% Normal Saline 1,000 ML 1000 ML IV (10:05)
[2017-10-05] MEDS: Ondansetron 4 MG/2 ML Vial IV (10:05)
[2017-10-05 10:06] LABS: Absolute Lymphocyte Count 2.47 X10^3/ul (0.83-4.51); Absolute Neutrophil Count 4.7 X10^3/uL (2.0-7.7); Basophil# 0.01 X10^3/uL; Basophil% 0.1 % (0-1); Eosinophil# 0.07 X10^3/uL; Eosinophils% 0.9 % (0-5); Hematocrit 31.1 % (37-47); Hemoglobin 9.6 g/dl (12.0-15.0); Lymphocyte # 2.47 X10^3/ul (4.0); Lymphocyte % 30.5 % (19-41); Mean Corp Hgb Conc 30.9 g/gl (32-36); Mean Corpuscular Hgb 24.9 pg (27.0-32.0); Mean Corpuscular Volume 80.8 fL (81-99); Mean Platelet Vol. 9.3 fl (6.2-12.0); Monocyte# 0.85 X10^3/uL; Monocyte% 10.5 % (0-10); Neutrophil % 57.9 % (47-70); Platelet Count 255 K/mm3 (150-450); RBC Distribution Width CV 14.7 % (11.6-14.6); RBC Distribution Width SD 42.6 fl (35.1-43.9); Red Blood Count 3.85 M/mm3 (4.2-5.4); White Blood Count 8.1 K/mm3 (4.4-11.0)
[2017-10-05 10:08] LABS: POSITIVE COUNT NO; POSITIVE DIFFERENTIAL NO; POSITIVE MORPHOLOGY NO
[2017-10-05 10:21] LABS: AST(SGOT) 17 U/L (15-37); Alanine Aminotransfer ALT/SGPT 13 U/L (13-56); Albumin, Serum 2.5 g/dL (3.2-5.0); Alkaline Phosphatase 144 U/L (45-117); Anion Gap 9 (5-15); BUN 8 mg/dL (7-18); BUN/Creat Ratio 12.9 RATIO (10-20); Bilirubin, Direct 0.14 mg/dL (0.00-0.30); Calcium,Total 8.5 mg/dL (8.5-10.1); Chloride 105 mmol/L (98-107); Creatinine, Serum 0.62 mg/dL (0.55-1.02); EST Glomerular Filtration Rate 121 mL/min (>60); Est Glom Filt Rate - Afr Amer 146 mL/min (>60); Estimated Creatinine Clearance 116.65 ml/min; Globulin 4.6 g/dL (2.2-4.2); Glucose 73 mg/dL (74-106); Lipase 152 U/L (73-393); Potassium 3.4 mmol/L (3.5-5.1); Protein, Total 7.1 g/dL (6.4-8.2); Sodium Level 138 mmol/L (136-145)
[2017-10-05 10:26] LABS: Red Blood Cells-Urine 0 SEEN /hpf (0-5)
[2017-10-05 10:30] LABS: Color, Urine Yellow (Yellow); Glucose, Dipstick Normal (Normal); Ketone-Dipstick Negative (Negative); Leukocyte Esterase-Dipstick 25 /ul (Negative); Nitrite-Dipstick Negative (Negative); Occult Blood-Urine Negative /ul (Negative); Protein-Dipstick Negative (Negative); Specific Gravity, Urine 1.015 (1.002-1.030); Urine Bilirubin Dipstick Negative (Negative); Urine Clarity Clear (Clear); Urine Urobilinogen 1 mg/dl (Normal)
[2017-10-05 10:37] LABS: Bacteria 1+ /hpf (None Seen); Mucous, Urine 1+ /hpf (<or=2+); Squamous Epithelial Cells - UA 0-5 SEEN /hpf (5-10); White Blood Cells 0-5 SEEN /hpf (0-5)
[2017-10-05] MEDS: proMETHazine 25 MG/ML Syringe 12.5 MG IV (13:03)
[2017-10-05] MEDS: 0.9% Normal Saline 1,000 ML 125 ML IV (13:03)
--- NOTE | 2017-10-05 14:12 | ED.DEP ---
ED Disposition - Plan for ED Patient: Chief Complaint: Nausea/Vomiting/Diarrhea Instructions: ED Gastroenteritis Vs Food Poison Referrals: Lili Goddard MD [Primary Care Provider] - Additional Instructions: Go directly to labor and delivery for further evaluation and treatment
[2017-10-05 14:25] VITALS: BP 111/63; PULSE 85; RESP 16; O2SAT 100
--- NOTE | 2017-10-05 14:28 | ED.RN ---
REVIEWED D/C INSTRUCTIONS WITH PT. [facility] PT A&O X 3, RESP EVEN AND UNLABORED, NO DISTRESS NOTED.
[2017-10-05] MEDS: Dextrose 5%-Lactated Ringers 1,000 ML 999 ML IV (14:30)
[2017-10-05 16:49] VITALS: BMI 33.6
--- NOTE | 2017-10-06 06:01 | OB.TRI.NOTE ---
- Problem List (1) Nausea & vomiting Status: Acute History of Present Illness Date of Service: 10/05/17 Was patient seen by the physician?: No Reason For Visit: N/V/D Date of Service: 10/05/17 History of Present Illness: nausea and vomiting Allergies naproxen Allergy (Verified 10/05/17 09:22) Rash Penicillins Allergy (Verified 10/05/17 09:22) Hives also has hematemesis - Pertinent Past Medical History Medical History: Past Medical History (Last Reviewed 10/03/17 @ 15:57 by Nasrin Moore) Depression Surgical History: Past Surgical History (Last Reviewed 10/03/17 @ 15:57 by Nasrin Moore) delivery delivered Physical Exam Vitals: Vital Signs Temp Pulse Resp BP Pulse Ox 97.8 F 85 16 111/63 100 10/05/17 09:22 10/05/17 14:25 10/05/17 14:25 10/05/17 14:25 10/05/17 14:25 NST - FHR Rate Baby A Baseline: 135 Variability:: Moderate Accelerations:: 15 x 15 Decelerations:: None NST Reactive:: Yes FHR Category:: Category I Uterine Activity:: no regular Impression/Plan reactive nst nausea vomiting, tolerating po now dc home
== END 2017-10-05 17:00 | disposition home or self-care (01) ==
LOC: ED 10:10 → WPOUT 14:49 → WP 14:50
PROVIDERS: Emergency Provider Emergency Medicine; Family Provider Internal Medicine; PCP Internal Medicine; Visit Provider Obstetrics & Gynecology
DX: O21.2 Late vomiting of pregnancy (principal); Z3A.38 38 weeks gestation of pregnancy
CPT/HCPCS: 96361; 96374; 96375; 59025; 59050; 80048; 80076; 81001; 83690; 85025; 99218; 99283; J7030; J7040; A4216; G0378; J2405

== ENCOUNTER 2017-10-12 09:55 | Inpatient (IN) | payer MEDICAID, SELFPAY ==
[2017-10-12] VITALS (16 sets, daily range): BP systolic 98–133; BP diastolic 55–76; PULSE 68–111; RESP 16–18; TEMP 35.8–36.4; O2SAT 94–100; BMI 32.8
--- NOTE | 2017-10-12 | FALS_PTH ---
PATIENT: CEASAR JAQUEZ LOC: [facility] U#:[id number] AGE/SX: 27/F ROOM: WP010 RE10/12/[address]: Dr. Shanthi Johnson MD : 1990 BED: 1 DIS: 10/15/2017 SPEC #: [id number] RECD: 10/13/17 07:56 STATUS: BLAISE RETiffanie #: [id number] VANDANA: 10/12/17 00:[address]: Shanthi Johnson DEPT: SURGICAL PATHOLOGY RECD BY: Bk Lopez ENTERED: 10/13/17 07:56 SP TYPE: FALL TUBES OTHR DR: Dr. Lili Goddard MD Tissues: Fallopian tube Procedures: Surgery Specimen Level II HEADER OPERATION: Tubal ligation PRE-OP DIAGNOSIS: Desires sterilization TISSUE SUBMITTED: Fallopian tubes MICROSCOPIC DIAGNOSIS Right and left fallopian tubes, bilateral partial salpingectomies: Complete cross section fallopian tubes with no pathologic change. AM:sp 10/16/17 MICROSCOPIC DESCRIPTION Slides are reviewed. GROSS DESCRIPTION Received is one container labeled with the patient's name and there is a tie on one fallopian tube designated left fallopian tube. The specimen consists of two fallopian tubes with an average length of 2.5 cm and has a maximal diameter of 0.7 cm. Both fallopian tubes have normal fimbriated ends. No mass lesions are identified. Stripper Opaquer sections are submitted in two cassettes as follows: 1 ? right fallopian tube, 2 - left fallopian tube. / AM:jesus manuel 10/13/17 TC: 4 CPT: 00830 x2
[2017-10-12] MEDS: Lactated Ringers 1,000 ML 999 ML IV (10:50)
[2017-10-12 11:07] LABS: Absolute Lymphocyte Count 2.75 X10^3/ul (0.83-4.51); Absolute Neutrophil Count 4.9 X10^3/uL (2.0-7.7); Basophil# 0.01 X10^3/uL; Basophil% 0.1 % (0-1); Eosinophil# 0.05 X10^3/uL; Eosinophils% 0.6 % (0-5); Hematocrit 31.7 % (37-47); Hemoglobin 9.7 g/dl (12.0-15.0); Lymphocyte # 2.75 X10^3/ul (4.0); Lymphocyte % 32.2 % (19-41); Mean Corp Hgb Conc 30.6 g/gl (32-36); Mean Corpuscular Hgb 24.6 pg (27.0-32.0); Mean Corpuscular Volume 80.5 fL (81-99); Mean Platelet Vol. 9.4 fl (6.2-12.0); Monocyte# 0.84 X10^3/uL; Monocyte% 9.8 % (0-10); Neutrophil # 4.88 X10^3/uL (2.7-7.7); Neutrophil % 57.1 % (47-70); Platelet Count 274 K/mm3 (150-450); RBC Distribution Width CV 14.7 % (11.6-14.6); RBC Distribution Width SD 43.1 fl (35.1-43.9); Red Blood Count 3.94 M/mm3 (4.2-5.4); White Blood Count 8.6 K/mm3 (4.4-11.0)
[2017-10-12 11:10] LABS: POSITIVE COUNT NO; POSITIVE DIFFERENTIAL NO; POSITIVE MORPHOLOGY NO
[2017-10-12] MEDS: Lactated Ringers 1,000 ML 150 ML IV (11:40)
[2017-10-12] MEDS: Sodium Citrate/Citric Acid 30 ML UDC PO (11:54)
[2017-10-12] MEDS: Oxytocin 30 units/NS 500 ml 30 UNITS/500 ML IV.SOLN 167 UNITS IV (12:40)
--- NOTE | 2017-10-12 14:09 | PCM.OPRPT ---
Problem List (1) Previous section Status: Acute Comment: plans RLTCS/BTO. history of postop wound cellulitis; title 19 signed Report of Operation Date of Procedure: 10/12/17 Pre-Operative Diagnosis: Previous ?2 and desired sterilization Post-Operative Diagnosis: Same Surgery/Procedure Performed:: repeat low transverse and bilateral tubal ligation Via Foristell method Description of Surgical Findings:: Normal uterus tubes and ovaries with minimal scar tissue present athletics teacher: Maddie Reyes Type of Anesthesia:: Spinal Special Medications: None Specimen's removed: Male infant vertex Drains: Muniz Estimated Blood Loss (mL): 900 cc Fluids Replaced: Crystalloid Description of Procedure: The patient is a 27-year-old presented for repeat and desired sterilization. Spinal anesthesia was placed without difficulty. Muniz catheter was placed. The patient was placed in the dorsal supine position with leftward tilt. Patient was prepped and draped in the normal sterile fashion. Pfannenstiel skin incision was made with the scalpel and carried through to the underlying layer of fascia with the scalpel. Fascia was nicked in the midline and the incision extended laterally. The rectus bellies were dissected off superiorly and inferiorly with out complication both sharply and bluntly. The peritoneum was entered digitally. The incision was stretched and a low transverse uterine incision was made with the scalpel. The 's head was delivered atraumatically followed by the anterior and posterior shoulders without complication the rest of the infant delivered. The cord was clamped and cut and the infant was handed off to awaiting nurse. The placenta was delivered spontaneously immediately following and was noted to be intact and have a three-vessel cord. The uterus was exteriorized cleared of all clots and debris, and the incision was closed in a single layer closure using #1 Monocryl. Fallopian tubes were elevated and identified bilaterally. The mesosalpinx was transected with the Bovie and the proximal and distal portions of the tubes were tied with 2 o plain suture the communicating portion of the tube bilaterally was removed and excellent hemostasis noted. The uterus was returned to the maternal abdomen and gutters were cleared of all clots and debris. The ovaries and fallopian tubes were noted to be within normal limits. The peritoneum was closed with 3-0 Monocryl in a running fashion. Fascia was closed with 0 PDS in a running fashion. Additional scar tissue from the skin was excised and subcutaneous tissue was reapproximated with 3-0 Monocryl and the skin was closed with 3-0 Monocryl in a subcuticular fashion. Steri-Strips and Mepilex dressing were applied without complication. Patient was taken to recovery in stable condition. Grafts/Implants Used: None - Complications None
[2017-10-12] MEDS: proMETHazine 25 MG/ML Syringe 12.5 MG IV (14:31)
[2017-10-12] MEDS: Lactated Ringers 1,000 ML 100 ML IV (15:52)
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
[2017-10-12] MEDS: Ketorolac 30 MG/ML Syringe IV ×2 (18:05→18:06)
[2017-10-12] MEDS: Acetaminophen 500 MG Tablet 1000 MG PO (18:43)
[2017-10-12] MEDS: Prenatal Vits Tablet 1 TABLET PO (19:45)
[2017-10-13] VITALS (11 sets, daily range): BP systolic 109–129; BP diastolic 48–73; PULSE 90–104; RESP 16–20; TEMP 36.1–36.6; O2SAT 98–100
[2017-10-13] MEDS: Ketorolac 30 MG/ML Syringe IV ×4 (00:22→17:55)
[2017-10-13] MEDS: 0.9% Saline Lock 10 ML Syringe IV ×3 (00:23→17:55)
[2017-10-13] MEDS: Lactated Ringers 1,000 ML 100 ML IV (00:24)
[2017-10-13] MEDS: oxyCODONE 5 MG Tablet PO ×3 (04:37→19:44)
[2017-10-13 05:23] LABS: Hematocrit 25.9 % (37-47); Mean Corp Hgb Conc 30.9 g/gl (32-36); Mean Corpuscular Volume 80.9 fL (81-99); Mean Platelet Vol. 9.3 fl (6.2-12.0); Platelet Count 223 K/mm3 (150-450); RBC Distribution Width CV 14.7 % (11.6-14.6); RBC Distribution Width SD 43.2 fl (35.1-43.9); White Blood Count 8.9 K/mm3 (4.4-11.0)
[2017-10-13 05:25] LABS: Scan Indicated on CBC? Y/N NO
[2017-10-13] MEDS: Ferrous Sulfate 325 MG Tablet PO ×2 (08:08→17:55)
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
--- NOTE | 2017-10-13 17:06 | CASEMGMT ---
Social Work Note Labor and Delivery Unit Called [facility] ([facility]) at 1535, and spoke with Elle in the intake department. Reported that mother of baby (MOB) delivered baby on 10-12-17, of reported active case with [facility], and MOB sharing there is a plan in place to have MOB supervised with children. Let Elle know of MOB's stated plans for self and baby at discharge, as well as for the older children, as MOB's parents, with whom MOB lives are out of town right now. Let Elle know of planned discharge this weekend, likely on Monday. Let Elle know that as there is supervision in place with the other kids, just want to ensure this stated plan is okay for baby. Elle reported that if this typewriter ribbon winder does not hear from [facility] by end of the day (1630) what MOB has shared with this typewriter ribbon winder is adequate. At time of this note, not call from [facility]. Okay to proceed with discharging baby and MOB at time of discharge. MOB plans to stay short term with grandmother, taking baby to this home. Family will be transporting MOB home. See social work note from earlier this date for further details of social work interventions and plan for home going. No other services requested or indicated. -JOSE Marquez, INDUSTRIAL CONTROLS TECHNICIAN
--- NOTE | 2017-10-13 17:20 | PCM.PN.OB ---
Subjective: doing well pain controlled - Physical Exam General: Alert, Oriented x3 Vital Signs Temp Pulse Resp BP Pulse Ox 97 F L 91 18 118/48 L 99 10/13/17 12:24 10/13/17 12:24 10/13/17 12:24 10/13/17 12:24 10/13/17 12:24 Oxygen Delivery Method Room Air Weight: 191 lb Body Mass Index (BMI) 32.8 Finger Stick Blood Glucose 80 Intake and Output for Last 24 Hours 10/11/17 10/12/17 10/13/17 23:59 23:59 23:59 Intake Total 1210 / 1210 3139 / 3139 Output Total 1200 / 1200 3200 / 3200 Balance - / -61 Laboratory Tests Past 24 Hrs 10/13/17 04:45 WBC 8.9 RBC 3.20 L Hgb 8.0 L Hct 25.9 L MCV 80.9 L MCH 25.0 L MCHC 30.9 L RDW 14.7 H RDW Differential 43.2 Plt Count 223 MPV 9.3 Medical Necessity - Tobacco Use Smoking Status: Former smoker Assessment/Plan All Active Problems (Last Reviewed 10/10/17 @ 08:43 by Syl Lincoln) Nausea & vomiting (Acute) GBS (group B Streptococcus carrier), +RV culture, currently (Acute) Large for gestational age fetus affecting management of mother (Acute) Anemia in preg-unspec (Acute) Supervision of high risk , antepartum (Acute) Rh negative status during (Acute) UTI in (Acute) Previous section (Acute) Abdominal wall cellulitis (Resolved) Allergic dermatitis (Resolved) Breech presentation (Resolved) section wound complication (Resolved) False labor (Resolved) Incisional abscess (Resolved) Infertility (Resolved) Marginal placenta previa (Resolved) Supervision of normal (Resolved) s/p RLTCS BTL routine care incresae ambulating
[2017-10-13] MEDS: Prenatal Vits Tablet 1 TABLET PO (22:26)
[2017-10-13] MEDS: Acetaminophen 500 MG Tablet 1000 MG PO (23:35)
[2017-10-14 02:00] VITALS: BP 124/46; PULSE 94; RESP 18; TEMP 36.6
[2017-10-14] MEDS: oxyCODONE 5 MG Tablet PO ×4 (03:04→20:05)
--- NOTE | 2017-10-14 03:13 | PCM.DCCSEC ---
Discharge Diet: No Restrictions Discharge Activity: May Not Drive - for 2 weeks, May not drive while taking narcotic pain medications., May Shower, May Take a Tub Bath - in 7 days May resume sexual activity in: 4-6 weeks Lifting Restrictions: 20 pounds Additional Activity Instructions:: Nothing in the vagina for 4-6 weeks. You may return to work/school in 6 weeks. Call your doctor if your incision/area has: Continuous Slow Oozing, Sudden Increased Bleeding, Increased Pain/ Swelling, Increased Redness, Foul Smelling Discharge Call your doctor if you observe: Fever of 101 or Higher, Using more than one pad per hour - for 2 hours Suture Line Care: Avoid Pulling/Pushing, Avoid Pinching/Bending Cleanse incision/area with: Keep Dressing Clean & Dry Additional Instructions: If you experience any of the following, contact your healthcare provider. Bleeding that soaks a pad every hour for 2 hours Fever 100.4 or higher Unrelieved incision or abdominal pain Swelling, redness, discharge or bleeding from your incision or episiotomy site Your incision begins to separate Problems urinating (including inability to urinate or burning while urinating). Visual changes Severe headache Flu-like symptoms Pain or redness in one of both of your breasts Pain, warmth, tenderness or swelling in your legs, especially the calf area Frequent nausea and vomiting Symptoms of depression or anxiety If you experience any of the following, call 911 or go to the nearest Emergency Room. Chest pain Problems breathing Seizure activity Partial or complete paralysis of a body part, slurred speech, weakness or drooping of the face, or a sudden inability to walk or hold your balance Allergies/Adverse Reactions: Allergies naproxen Allergy (Verified 10/10/17 08:43) Rash Penicillins Allergy (Verified 10/10/17 08:43) Hives also has hematemesis Medications to take at Discharge Ondansetron [Zofran Odt] 4 mg PO Q8H PRN PRN #10 tab 08/07/17 vit no.78-iron 18 mg-folic acid no.1 1 mg-dha 300 mg capsule 1 cap PO QHS 08/18/17 ferrous sulfate 325 mg (65 mg iron) tablet,delayed release 325 mg PO BID #60 tab 09/18/17 Follow-Up: Call to make an appointment with your doctor for an incision check in 1-2 weeks. You will also need a 6 week post- follow up appointment. Test results from this visit will be discussed in further detail at your follow-up appointment, if applicable. Please Follow Up With: Shanthi Johnson MD - Call to make an appointment for an incision check in 1-2 [phone] When: You will need a post- check in 6 weeks. Primary Care Physician: Lili Goddard MD [Primary Care Provider] -
[2017-10-14] MEDS: Ferrous Sulfate 325 MG Tablet PO ×2 (07:49→17:24)
[2017-10-14 09:00] VITALS: BP 123/68; PULSE 101; RESP 20; TEMP 36.4
[2017-10-14] MEDS: Acetaminophen 500 MG Tablet 1000 MG PO ×2 (09:32→17:23)
[2017-10-14 14:00] VITALS: BP 116/61; PULSE 98; RESP 20; TEMP 36.4
[2017-10-14 20:00] VITALS: BP 116/63; PULSE 94; RESP 18; TEMP 36.4; O2SAT 100
[2017-10-14] MEDS: Prenatal Vits Tablet 1 TABLET PO (21:12)
[2017-10-14] MEDS: Senna/Docusate Sodium 1 Tablet PO (21:13)
[2017-10-15 02:00] VITALS: BP 125/71; PULSE 103; RESP 17; TEMP 36.6; O2SAT 98
[2017-10-15] MEDS: oxyCODONE 5 MG Tablet PO ×2 (02:32→08:26)
[2017-10-15] MEDS: Ferrous Sulfate 325 MG Tablet PO (08:26)
[2017-10-15] MEDS: Senna/Docusate Sodium 1 Tablet PO (08:26)
[2017-10-15 08:28] VITALS: BP 108/66; PULSE 92; RESP 16; TEMP 36.3; O2SAT 97
--- NOTE | 2017-10-15 10:32 | PCM.PN.OB ---
Subjective: late entry- seen 10/14 at 1230 pm doing well pain controlled no CP SOB NV - Physical Exam General: Alert, Oriented x3 Vital Signs Temp Pulse Resp BP Pulse Ox 97.3 F L 92 16 108/66 97 10/15/17 08:28 10/15/17 08:28 10/15/17 08:28 10/15/17 08:28 10/15/17 08:28 Oxygen Delivery Method Room Air Weight: 191 lb Body Mass Index (BMI) 32.8 Finger Stick Blood Glucose 80 Intake and Output for Last 24 Hours 10/13/17 10/14/17 10/15/17 23:59 23:59 23:59 Intake Total 3139 / 3139 Output Total 3650 / 3650 Balance -511 / -511 Medical Necessity - Tobacco Use Smoking Status: Former smoker Assessment/Plan All Active Problems (Last Reviewed 10/10/17 @ 08:43 by Syl Lincoln) Nausea & vomiting (Acute) GBS (group B Streptococcus carrier), +RV culture, currently (Acute) Large for gestational age fetus affecting management of mother (Acute) Anemia in preg-unspec (Acute) Supervision of high risk , antepartum (Acute) Rh negative status during (Acute) UTI in (Acute) Previous section (Acute) Abdominal wall cellulitis (Resolved) Allergic dermatitis (Resolved) Breech presentation (Resolved) section wound complication (Resolved) False labor (Resolved) Incisional abscess (Resolved) Infertility (Resolved) Marginal placenta previa (Resolved) Supervision of normal (Resolved) s/p RLTCS BTL routine care dc home tomorrow
--- NOTE | 2017-10-15 10:33 | PCM.PN.OB ---
Subjective: doing well no complaints pain controlled no CP SOB - Physical Exam General: Alert, Oriented x3 Vital Signs Temp Pulse Resp BP Pulse Ox 97.3 F L 92 16 108/66 97 10/15/17 08:28 10/15/17 08:28 10/15/17 08:28 10/15/17 08:28 10/15/17 08:28 Oxygen Delivery Method Room Air Weight: 191 lb Body Mass Index (BMI) 32.8 Finger Stick Blood Glucose 80 Intake and Output for Last 24 Hours 10/13/17 10/14/17 10/15/17 23:59 23:59 23:59 Intake Total 3139 / 3139 Output Total 3650 / 3650 Balance -511 / -511 Medical Necessity - Tobacco Use Smoking Status: Former smoker Assessment/Plan All Active Problems (Last Reviewed 10/10/17 @ 08:43 by Syl Lincoln) Nausea & vomiting (Acute) GBS (group B Streptococcus carrier), +RV culture, currently (Acute) Large for gestational age fetus affecting management of mother (Acute) Anemia in preg-unspec (Acute) Supervision of high risk , antepartum (Acute) Rh negative status during (Acute) UTI in (Acute) Previous section (Acute) Abdominal wall cellulitis (Resolved) Allergic dermatitis (Resolved) Breech presentation (Resolved) section wound complication (Resolved) False labor (Resolved) Incisional abscess (Resolved) Infertility (Resolved) Marginal placenta previa (Resolved) Supervision of normal (Resolved) s/p RLTCS routine care dc home today
--- NOTE | 2017-10-15 10:35 | PCM.DC.SUM ---
Discharge Date and Diagnosis Date of Admission: 07/31/16 Date of Discharge: 10/15/17 - Secondary Discharge Diagnosis Chronic Problems (Last Reviewed 10/10/17 @ 08:43 by Syl Lincoln) PCOS (polycystic ovarian syndrome) (Chronic) Depression (Chronic) Hospital Course and Treatment Operations: - - RLTCS BTL Summary of Care Provided: The patient is a 27 year old F patient underwent a section and had a routine recovery with a return of bowel and bladder function, was ambulating, voiding, and tolerating po, and was stable for discharge to home on POD 3. Discharge Diet: No Restrictions Discharge Activity: May Not Drive - for 2 weeks, May not drive while taking narcotic pain medications., May Shower, May Take a Tub Bath - in 7 days May resume sexual activity in: 4-6 weeks Additional Activity Instructions:: Nothing in the vagina for 4-6 weeks. You may return to work/school in 6 weeks. Call your doctor if your incision/area has: Continuous Slow Oozing, Sudden Increased Bleeding, Increased Pain/ Swelling, Increased Redness, Foul Smelling Discharge Call your doctor if you observe: Fever of 101 or Higher, Using more than one pad per hour - for 2 hours Suture Line Care: Avoid Pulling/Pushing, Avoid Pinching/Bending Cleanse incision/area with: Keep Dressing Clean & Dry Home Medications: Medications to take at Discharge Ondansetron [Zofran Odt] 4 mg PO Q8H PRN PRN #10 tab 08/07/17 vit no.78-iron 18 mg-folic acid no.1 1 mg-dha 300 mg capsule 1 cap PO QHS 08/18/17 ferrous sulfate 325 mg (65 mg iron) tablet,delayed release 325 mg PO BID #60 tab 09/18/17 Oxycodone HCl/Acetaminophen [Percocet 5-325] 1 - 2 tablet PO Q4H PRN PRN 7 Days #28 tablet 10/14/17 Following Prescrptions Were Given to Patient: Oxycodone HCl/Acetaminophen [Percocet 5-325] 1 - 2 tablet PO Q4H PRN PRN 7 Days #28 tablet PRN Reason: Moderate-Severe pain Primary Care Physician: Lili Goddard MD [Primary Care Provider] - Please Follow Up With: Shanthi Johnson MD - Call to make an appointment for an incision check in 1-2 [phone] When: You will need a post- check in 6 weeks. Medical Necessity - Tobacco Use Smoking Status: Former smoker Meaningful Use Info Meaningful Use Diagnoses (Choose all that apply): None applicable
[2017-10-15 10:36] VITALS: BP 119/67; PULSE 99; RESP 16; TEMP 36.5; O2SAT 98
[2017-10-17 11:32] LABS: Pathology Specimen OB SEE PATHOLOGY REPORT
== END 2017-10-15 11:35 | disposition home or self-care (01) | DRG 370 ==
PROVIDERS: Admitting Provider Obstetrics & Gynecology; Family Provider Internal Medicine; PCP Internal Medicine; Visit Provider Obstetrics & Gynecology
PROC: 10D00Z1 Extraction of Products of Conception, Low, Open Approach (ICD-10-PCS; CPT 59514; principal; 2017-10-12 11:45)
DX: O34.211 Maternal care for low transverse scar from previous cesarean delivery (principal); O99.02 Anemia complicating childbirth; Z3A.38 38 weeks gestation of pregnancy; Z37.0 Single live birth; Z87.891 Personal history of nicotine dependence
CPT/HCPCS: 85025; 85027; 85461; 86850; 86900; 88302; 90384; 99218; J7120; A4216; G0378; J2405; J2790

== ENCOUNTER 2017-11-15 14:14 | Emergency (ER) | payer MEDICAID, SELFPAY ==
[2017-11-15 14:17] VITALS: BP 117/66; PULSE 85; RESP 17; TEMP 36.8; O2SAT 99; BMI 29.8
--- NOTE | 2017-11-15 14:32 | ED.VISSUMM ---
- ER Visit Summary Date of Service: 11/15/17 Chief Complaint: Dental pain History of Present Illness: The patient is a 27 F with dental pain which is increasing over the past 2 days. The patient had multiple molars extracted. She was prescribed Ibap[place], but this caused nausea, vomiting, and an itchy rash. She has tried naproxen today with no improvement. No fevers. No trouble breathing or swallowing. No wheezing or shortness of breath. No GI symptoms currently. No confusion. Physical Examination: Vitals unremarkable. Afebrile. No acute distress. Head and neck atraumatic. Dental expection shows multiple molars have been extracted. No significant swelling. No bleeding or discharge noted. Tenderness to palpation to the area, worse over the left mandibular molars. No trismus or tongue elevation. No lymphadenopathy. Good range of motion of her neck. No rash noted. Test Results: None indicated Emergency Department Course and Treatment: I checked her prescription report. She was prescribed 2 days of Ibapah, 2 days ago. I will prescribe a short course of Percocet. She has tolerated this in the past. She will follow-up with her dentist tomorrow. There is no evidence of abscess, dry socket, bleeding, or any other complications. Treatment Plan: As above Disposition: Discharged Impression: 1. Dental pain This note was generated with [employer] dictation software. It may contain incorrect words, spelling, and punctuation that were not noted in review of the chart prior to signing ED Disposition - Plan for ED Patient: Chief Complaint: Dental Referrals: Lili Goddard MD [Primary Care Provider] -
--- NOTE | 2017-11-15 14:36 | ED.DCSUM_ITS ---
- ER Visit Summary Date of Service: 11/15/17 Chief Complaint: Dental pain History of Present Illness: The patient is a 27 F with dental pain which is increasing over the past 2 days. The patient had multiple molars extracted. She was prescribed [place], but this caused nausea, vomiting, and an itchy rash. She has tried naproxen today with no improvement. No fevers. No trouble breathing or swallowing. No wheezing or shortness of breath. No GI symptoms currently. No confusion. Physical Examination: Vitals unremarkable. Afebrile. No acute distress. Head and neck atraumatic. Dental expection shows multiple molars have been extracted. No significant swelling. No bleeding or discharge noted. Tenderness to palpation to the area, worse over the left mandibular molars. No trismus or tongue elevation. No lymphadenopathy. Good range of motion of her neck. No rash noted. Test Results: None indicated Emergency Department Course and Treatment: I checked her prescription report. She was prescribed 2 days of [place], 2 days ago. I will prescribe a short course of Percocet. She has tolerated this in the past. She will follow-up with her dentist tomorrow. There is no evidence of abscess, dry socket, bleeding, or any other complications. Treatment Plan: As above Disposition: Discharged Impression: 1. Dental pain This note was generated with [employer] dictation software. It may contain incorrect words, spelling, and punctuation that were not noted in review of the chart prior to signing ED Disposition - Plan for ED Patient: Chief Complaint: Dental Referrals: Lili Goddard MD [Primary Care Provider] -
--- NOTE | 2017-11-15 14:36 | ED.DEP ---
ED Disposition - Plan for ED Patient: Chief Complaint: Dental Instructions: ED Tooth Pain Prescriptions: Oxycodone HCl/Acetaminophen [Percocet 5/325] 1 tab PO Q6H PRN PRN 2 Days #8 tab PRN Reason: Pain Referrals: Lili Goddard MD [Primary Care Provider] -
== END 2017-11-15 14:45 | disposition home or self-care (01) ==
LOC: ED 14:42
PROVIDERS: Emergency Provider Emergency Medicine; Family Provider Internal Medicine; PCP Internal Medicine
DX: K08.89 Other specified disorders of teeth and supporting structures (principal); F17.290 Nicotine dependence, other tobacco product, uncomplicated
CPT/HCPCS: 99282

== ENCOUNTER → 2017-11-24 17:54 | Outpatient (CLI) | payer MEDICAID, SELFPAY ==
[2017-12-01 14:17] LABS: HPV Reflexed? NOT INDICATED
== END ==
PROVIDERS: Family Provider Internal Medicine; PCP Internal Medicine; Referring Provider Obstetrics & Gynecology; Visit Provider Obstetrics & Gynecology
DX: Z12.4 Encounter for screening for malignant neoplasm of cervix (principal)
CPT/HCPCS: 88175; G0145

== ENCOUNTER 2017-12-29 08:39 | Emergency (ER) | payer MEDICAID, SELFPAY ==
[2017-12-29 08:40] VITALS: BP 121/71; PULSE 86; RESP 16; TEMP 36.3; O2SAT 96; BMI 30.4
--- NOTE | 2017-12-29 08:55 | ED.VISSUMM ---
- ER Visit Summary Date of Service: 12/29/17 Chief Complaint: Right wrist and hand pain with swelling History of Present Illness: The patient is a 27 F who is right-handed presents with right wrist and hand pain for approximate 1-2 weeks. She describes pain in the distribution of the median nerve. She states she awakes from night with a burning sensation in her index long and ring finger. There is improvement when she shakes her hand. She denies history of diabetes or hypothyroidism and has no symptoms of either. She works in the [employer] department at [employer]. She denies history of trauma. She denies fever, chills night sweats. Physical Examination: Vital signs noted and blood pressure is slightly elevated 121/71. BMI is 30.5. There is swelling of the right hand. Median, radial and ulnar function intact. Tinel's sign and Phalen's sign are both positive. Sensation subjectively is altered in the index, long and ring finger. Capillary refill is normal. Flexor mechanism and extensor mechanism of her fingers are intact. There is no evidence of trauma. There is no point tenderness over the distal radius ulna, carpal bones or metacarpal bones. Test Results: None Emergency Department Course and Treatment: Since patient reports hives and swelling with Naprosyn she was treated with prednisone and prefabricated cock-up splint. Treatment Plan: Follow-up with Disposition: Discharged to home with appropriate home-going instructions Impression: Carpal tunnel syndrome right initial encounter This note was generated with [employer] dictation software. It may contain incorrect words, spelling, and punctuation that were not noted in review of the chart prior to signing ED Disposition - Plan for ED Patient: Disposition: Home or Assisted Living Chief Complaint: Upper Extremity Injury Instructions: ED Carpal Tunnel Prescriptions: Prednisone [Deltasone] 40 mg PO DAILY #10 tablet Referrals: Lili Goddard MD [Primary Care Provider] - Nathalia Carson DO [STAFF PHYSICIAN] - 5-7 Days Additional Instructions: Wear splint today for comfort. After today wear splint at bedtime only. Take prednisone as instructed until gone. Your prescription was electronically transmitted to [facility] your preferred pharmacy.
[2017-12-29] MEDS: predniSONE 20 MG Tablet 60 MG PO (09:06)
--- NOTE | 2017-12-29 09:10 | ED.DCSUM_ITS ---
- ER Visit Summary Date of Service: 12/29/17 Chief Complaint: Right wrist and hand pain with swelling History of Present Illness: The patient is a 27 F who is right-handed presents with right wrist and hand pain for approximate 1-2 weeks. She describes pain in the distribution of the median nerve. She states she awakes from night with a burning sensation in her index long and ring finger. There is improvement when she shakes her hand. She denies history of diabetes or hypothyroidism and has no symptoms of either. She works in the [employer] department at [employer]. She denies history of trauma. She denies fever, chills night sweats. Physical Examination: Vital signs noted and blood pressure is slightly elevated 121/71. BMI is 30.5. There is swelling of the right hand. Median, radial and ulnar function intact. Tinel's sign and Phalen's sign are both positive. Sensation subjectively is altered in the index, long and ring finger. Capillary refill is normal. Flexor mechanism and extensor mechanism of her fingers are intact. There is no evidence of trauma. There is no point tenderness over the distal radius ulna, carpal bones or metacarpal bones. Test Results: None Emergency Department Course and Treatment: Since patient reports hives and swelling with Naprosyn she was treated with prednisone and prefabricated cock-up splint. Treatment Plan: Follow-up with Disposition: Discharged to home with appropriate home-going instructions Impression: Carpal tunnel syndrome right initial encounter This note was generated with [employer] dictation software. It may contain incorrect words, spelling, and punctuation that were not noted in review of the chart prior to signing ED Disposition - Plan for ED Patient: Disposition: Home or Assisted Living Chief Complaint: Upper Extremity Injury Instructions: ED Carpal Tunnel Prescriptions: Prednisone [Deltasone] 40 mg PO DAILY #10 tablet Referrals: Lili Goddard MD [Primary Care Provider] - Nathalia Carson DO [STAFF PHYSICIAN] - 5-7 Days Additional Instructions: Wear splint today for comfort. After today wear splint at bedtime only. Take prednisone as instructed until gone. Your prescription was electronically transmitted to [facility] your preferred pharmacy.
[2017-12-29 09:17] VITALS: RESP 14
== END 2017-12-29 09:18 | disposition home or self-care (01) ==
LOC: ED 09:05 → PCU 09:11
PROVIDERS: Emergency Provider Emergency Medicine; Family Provider Internal Medicine; PCP Internal Medicine
DX: G56.01 Carpal tunnel syndrome, right upper limb (principal); Z72.0 Tobacco use
CPT/HCPCS: 99283

== ENCOUNTER 2018-03-09 06:47 | Observation (INO) | payer MEDICAID, SELFPAY ==
[2018-03-09] VITALS (12 sets, daily range): BP systolic 103–123; BP diastolic 55–88; PULSE 65–86; RESP 14–18; TEMP 36.8–37.1; O2SAT 92–100; BMI 30.9; BMI 31.1; BMI 31.5; BMI 31.3
--- NOTE | 2018-03-09 07:22 | US_ITS ---
STUDY: ABDOMINAL ULTRASOUND - RIGHT UPPER QUADRANT REASON FOR VISIT: Female, 27 years old. 2 day history of abdominal pain. TECHNIQUE: Ultrasound evaluation of the right upper quadrant was performed with real-time and static henley-scale imaging. TECHNICAL QUALITY: Adequate. COMPARISON: None. FINDINGS: Liver: The liver measures 16.9 cm. There is normal echogenicity of the liver. The bile ducts are within normal limits. There is hepatic color flow. The direction of portal flow is hepatopetal. There is no demonstrated mass lesion. Gallbladder: Normal distended gallbladder. The gallbladder wall measures 2.5 mm. There is a positive sonographic Garcia's sign. There is no pericholecystic fluid. There are multiple echogenic structures within the gallbladder, consistent with multiple gallstones. Common Bile Duct (C.B.D.): The common bile duct measures 3.6 mm. Pancreas: Normal size of the head, body and tail of the pancreas. There is normal echogenicity of the pancreas. There is no demonstrated pancreatic mass or cyst. Right Kidney: Normal size of the right kidney. The right kidney measures 10.8 cm x 5.5 cm x 3.7 cm. Normal renal cortex. The right cortex measures 1.4 cm. There is no demonstrated renal mass or cyst. There is no right hydronephrosis. US/Gallbladder IMPRESSION: Multiple gallstones. Positive sonographic Garcia's sign. Electronically Signed: Memo Carroll MD at 8:51 EST Tel [phone], Service support ,
[2018-03-09] MEDS: 0.9% Normal Saline 1,000 ML 1000 ML IV (07:46)
[2018-03-09] MEDS: fentaNYL 100 MCG/2 ML Ampul 50 MCG IV (07:46)
[2018-03-09] MEDS: Ondansetron 4 MG/2 ML Vial IV ×3 (07:46→22:29)
[2018-03-09 07:49] LABS: Absolute Lymphocyte Count 3.22 X10^3/ul (0.83-4.51); Absolute Neutrophil Count 3.1 X10^3/uL (2.0-7.7); Basophil# 0.02 X10^3/uL; Basophil% 0.3 % (0-1); Eosinophil# 0.13 X10^3/uL; Eosinophils% 1.8 % (0-5); Hematocrit 34.1 % (37-47); Hemoglobin 10.8 g/dl (12.0-15.0); Lymphocyte # 3.22 X10^3/ul (4.0); Lymphocyte % 44.4 % (19-41); Mean Corp Hgb Conc 31.7 g/gl (32-36); Mean Corpuscular Hgb 26.9 pg (27.0-32.0); Mean Corpuscular Volume 84.8 fL (81-99); Mean Platelet Vol. 9.6 fl (6.2-12.0); Monocyte# 0.75 X10^3/uL; Monocyte% 10.3 % (0-10); Neutrophil # 3.12 X10^3/uL (2.7-7.7); Neutrophil % 43.1 % (47-70); Platelet Count 326 K/mm3 (150-450); RBC Distribution Width CV 13.1 % (11.6-14.6); Red Blood Count 4.02 M/mm3 (4.2-5.4); White Blood Count 7.3 K/mm3 (4.4-11.0)
[2018-03-09 07:50] LABS: POSITIVE COUNT NO; POSITIVE DIFFERENTIAL NO; POSITIVE MORPHOLOGY NO
[2018-03-09 07:58] LABS: AST(SGOT) 16 U/L (15-37); Alanine Aminotransfer ALT/SGPT 20 U/L (13-56); Albumin, Serum 3.6 g/dL (3.2-5.0); Alkaline Phosphatase 61 U/L (45-117); Anion Gap 8 (5-15); BUN 15 mg/dL (7-18); BUN/Creat Ratio 21.7 RATIO (10-20); Calcium,Total 7.8 mg/dL (8.5-10.1); Chloride 111 mmol/L (98-107); Creatinine, Serum 0.69 mg/dL (0.55-1.02); EST Glomerular Filtration Rate 106 mL/min (>60); Est Glom Filt Rate - Afr Amer 129 mL/min (>60); Estimated Creatinine Clearance 103.88 ml/min; Globulin 3.7 g/dL (2.2-4.2); Glucose 88 mg/dL (74-106); Lipase 189 U/L (73-393); Potassium 3.6 mmol/L (3.5-5.1); Protein, Total 7.3 g/dL (6.4-8.2); Sodium Level 141 mmol/L (136-145)
[2018-03-09 08:05] LABS: Pregnancy, Serum, hCG Quali. NEGATIVE Negative (0-9 Nonpreg)
--- NOTE | 2018-03-09 09:18 | ED.VISSUMM ---
- ER Visit Summary Date of Service: 03/09/18 Chief Complaint: Abdominal pain History of Present Illness: The patient is a 27 F abdominal pain since yesterday. Worse after eating Macanese food. The pain is sharp and radiates to her back and shoulder on the right. Associate with nausea, vomiting, and diarrhea. Denies any fevers. Denies any history of this in the past. She had a in about 5 months ago. She is not breast-feeding. She has had a history of 3 C-sections, tubal ligation, and a postop infection after 1 of the C-sections requiring a wound VAC. Physical Examination: Afebrile and vital signs unremarkable. Alert and oriented. No acute distress. Heart regular. Lungs clear. Abdomen tender in the right upper quadrant. No guarding or rebound. Skin is normal in color. Test Results: Hemoglobin 10.8 but otherwise labs unremarkable. Urinalysis pending. test negative. Ultrasound showed multiple gallstones and sonographic Garcia sign. No wall thickening, distention, or pericholecystic fluid. Emergency Department Course and Treatment: Patient treated with fluids, Zofran, fentanyl. She had continued pain and required additional pain medicine. She was given morphine. Patient has biliary colic without any evidence of cholecystitis or other complications. She is having intractable pain, requiring multiple doses of IV pain medicine. She was discussed with Dr. Coombs who will admit for surgery later today, this afternoon. The patient was n.p.o. since around 1 AM today when she had some water. She was advised by me to continue to be n.p.o. Treatment Plan: As above Disposition: Admission Impression: 1. Biliary colic This note was generated with [employer] dictation software. It may contain incorrect words, spelling, and punctuation that were not noted in review of the chart prior to signing ED Disposition - Plan for ED Patient: Chief Complaint: Abd Pain Referrals: Lili Goddard MD [Primary Care Provider] -
[2018-03-09 09:19] LABS: Bacteria 0 SEEN /hpf (None Seen); Color, Urine Yellow (Yellow); Glucose, Dipstick Normal (Normal); Ketone-Dipstick Negative (Negative); Leukocyte Esterase-Dipstick Negative /ul (Negative); Mucous, Urine 0 SEEN /hpf (<or=2+); Nitrite-Dipstick Negative (Negative); Occult Blood-Urine 10 /ul (Negative); Protein-Dipstick Negative (Negative); Urine Bilirubin Dipstick Negative (Negative); Urine Clarity Sl. Cloudy (Clear); Urine Urobilinogen Normal (Normal); White Blood Cells 0 SEEN /hpf (0-5)
--- NOTE | 2018-03-09 09:21 | ED.DCSUM_ITS ---
- ER Visit Summary Date of Service: 03/09/18 Chief Complaint: Abdominal pain History of Present Illness: The patient is a 27 F abdominal pain since yesterday. Worse after eating Thai food. The pain is sharp and radiates to her back and shoulder on the right. Associate with nausea, vomiting, and diarrh ea. Denies any fevers. Denies any history of this in the past. She had a C- section in about 5 months ago. She is not breast-feeding. She has had a history of 3 C-sections, tubal ligation, and a postop infection after 1 of the C-sections requiring a wound VAC. Physical Examination: Afebrile and vital signs unremarkable. Alert and oriented. No acute distress. Heart regular. Lungs clear. Abdomen tender in the right upper quadrant. No guarding or rebound. Skin is normal in color. Test Results: Hemoglobin 10.8 but otherwise labs unremarkable. Urinalysis pending. test negative. Ultrasound showed multiple gallstones and sonographic Garcia sign. No wall thickening, distention, or pericholecystic fluid. Emergency Department Course and Treatment: Patient treated with fluids, Zofran, fentanyl. She had continued pain and required additional pain medicine. She was given morphine. Patient has biliary colic without any evidence of cholecystitis or other complications. She is having intractable pain, requiring multiple doses of IV pain medicine. She was discussed with Dr. Coombs who will admit for surgery later today, this afternoon. The patient was n.p.o. since around 1 AM today when she had some water. She was advised by me to continue to be n.p.o. Treatment Plan: As above Disposition: Admission Impression: 1. Biliary colic This note was generated with [employer] dictation software. It may contain incorrect words, spelling, and punctuation that were not noted in review of the chart prior to signing ED Disposition - Plan for ED Patient: Chief Complaint: Abd Pain Referrals: Lili Goddard MD [Primary Care Provider] -
--- NOTE | 2018-03-09 09:21 | NURSING ---
MED SURG BILIARY COLIC JORDAN
[2018-03-09] MEDS: Morphine 4 MG/ML Syringe IV ×3 (09:22→22:29)
[2018-03-09 09:27] LABS: Red Blood Cells-Urine 0-5 SEEN /hpf (0-5); Squamous Epithelial Cells - UA 0-5 SEEN /hpf (5-10)
[2018-03-09] MEDS: 0.9% NaCl Peripheral Flush Adult/Peds IV ×2 (13:18→22:30)
--- NOTE | 2018-03-09 13:34 | EKG12_ITS ---
Test Reason : PRE OP Blood Pressure : / mmHG Vent. Rate : 067 BPM Atrial Rate : 067 BPM P-R Int : 152 ms QRS Dur : 090 ms QT Int : 424 ms P-R-T Axes : 031 057 037 degrees QTc Int : 448 ms Normal sinus rhythm Normal ECG Confirmed by WIN BOLAND, JASON ([id number]), commercial production editor ABE MEYER ([id number]) on 03/14/2018 1:56:53 PM Referred By: Christine Coombs Confirmed By:JASON WALDEN MD
--- NOTE | 2018-03-09 14:44 | HP.PCM_ITS ---
History and Physical Date of Admission: 03/09/18 Chief Complaint: abdominal pain History of Present Illness: 27 y/o WF presents with abdominal pain - severe pain began this morning. She has noted twinges of pain for about a month. Points to right upper quadrant. Seen in ED -normal WBC, normal LFTs. US findings of cholelithiasis. Patient denies fevers. Has had nausea and emesis. denies constipation Has had diarrhea Past Medical History: denies major medical illnesses Past Surgical History: csections - one developed wound infection Medications: denies taking chronic medications Allergies: acetaminophen norco penicillins Social history: TOB use yes Works in [employer] in [facility] Review of Systems: General - denies fevers Cardiovascular denies chest pain, denies history of heart attack Pulmonary denies shortness of breath, denies coughing up blood Gastrointestinal as per HPI Neurological denies seizures, denies history of stroke Genitourinary denies blood in urine Hematological denies spontaneous/prolonged bleeding Skin denies open non healing wounds, did have wound infection with one of her csections, admits to TOB use Musculoskeletal denies history of fractures - except for finger fracture Endocrine denies diabetes Psychological denies hallucinations Physical examination: Vital signs Temp 98.7F HR 75 BP 120/75 General WD/WN WF in no apparent distress, alert and oriented, not septic appearing HEENT Normocephalic. EOM intact with sclera clear and no icterus noted. Neck is supple with no jugular venous distention noted. Trachea is midline. Lungs clear to auscultation. normal breath sounds. No rales/rhonchi/wheezing noted. No labored breathing noted, such as retractions. No cough heard. Heart normal S1 and S2 auscultated. No rubs/clicks/murmurs noted. Abdomen soft but tender in the right upper quadrant with positive Garcia's sign. Normal bowel sounds Extremities no calf tenderness noted. No pitting edema noted. Genitourinary/Rectal deferred Skin normal skin integrity. Neurological gait normal, no focal deficits Psychological normal affect, patient is calm and appropriate Impression: cholelithiasis, acute cholecystitis/biliary colic Discussion/Plan: I have discussed the above with the patient and her mother who is present with her. I have offered the patient the procedure of laparoscopic cholecystectomy possible cholangiograms I have explained the procedure to the patient. I have counseled the patient as to the risks of the procedure, including but not limited to: infection, bleeding, injury to any blood vessels/nerves, scar tissue, injury to any intraabdominal organs, injury to kidney/ureters, injury to bowel/bladder, injury to the common bile duct/biliary tree, bile leakage, intraabdominal abscess/bleeding, hernias at incisional sites, wound infections, possible open procedure, complications of anesthesia, postoperative pneumonia/cardiac problems/blood clots etc. the patient understands. Possible need for ERCP also discussed She wishes to proceed I have answered all questions to the patient?s satisfaction and the patient has no further questions.
--- NOTE | 2018-03-09 14:56 | PCM.IMDPSTOP ---
Immediate Post-Op Note Date of Procedure: 03/09/18 Primary Surgeon/Physician: Christine Coombs MD single needle operator: Maddie Reyes Pre-Operative Diagnosis: cholelithiasis Post-Operative Diagnosis: cholelithiasis Surgery/Procedure Performed:: laparoscopic cholecystectomy with cholangiograms Description of Surgical Findings:: normal cholangiogram, stones in gallbladder Estimated Blood Loss: < 5 Specimen's removed: gallbladder and contents Type of Anesthesia:: General ASA Class: ASA2 Mod Systematic Disease - Admit VTE Documentation VTE Present on Admission: Yes VTE Mechan Device Prophylaxis: SCD's
--- NOTE | 2018-03-09 14:57 | PCM.DC.GB ---
Discharge Diet: No Restrictions - drink plenty of fluids avoid caffeinated products and carbonated beverages for a few days Discharge Activity: Return to Normal Activity, May not drive while taking narcotic pain medications. - No driving for about a week. Return to work on:: 03/26/18 Lifting Restrictions: no lifting greater than 20 pounds for 2 weeks Call your doctor if your incision/area has: Continuous Slow Oozing, Foul Smelling Discharge Call your doctor if you observe: Fever of 101 or Higher Additional Dressing/Incision Instructions:: Leave dressings in place. May get wet in shower. Do not soak wounds - no tub baths/swimming Additional Instructions: for pain control - can also take 600 mg ibuprofen every 6 hours prn pain Allergies/Adverse Reactions: Allergies acetaminophen [From [place]] Allergy (Verified 03/09/18 06:52) Hives hydrocodone [From [place]] Allergy (Verified 03/09/18 06:52) Hives naproxen Allergy (Verified 03/09/18 06:52) Rash Penicillins Allergy (Verified 03/09/18 06:52) Hives also has hematemesis Medications to take at Discharge Oxycodone [Oxyir] 5 mg PO Q8H PRN PRN 5 Days #15 tab 03/09/18 The following prescriptions were given: Oxycodone [Oxyir] 5 mg PO Q8H PRN PRN 5 Days #15 tab PRN Reason: Mod-Severe Pain (4-10/10) Test Results: Test results from this visit will be discussed in further detail at your follow-up appointment, if applicable. Please Follow Up With: Christine Coombs MD - call When: to be seen in 7-10 days, please call for date and time, thank you
--- NOTE | 2018-03-09 15:00 | GALL_PTH ---
PATIENT: CEASAR JAQUEZ LOC: [facility]3 U#:[id number] AGE/SX: 27/F ROOM: MS305 RE03/09/[address]: Dr. Christine Coombs MD : 1990 BED: 1 DIS: 03/10/2018 SPEC #: [id number] RECD: 03/09/18 16:04 STATUS: BLAISE RE #: [id number] VANDANA: 03/09/18 15:[address]: Christine Coombs DEPT: SURGICAL PATHOLOGY RECD BY: Taurus Waterman ENTERED: 03/12/18 10:22 SP TYPE: KIAH CHINCHILLA DR: Dr. Lili Goddard MD Tissues: Gallbladder, NOS Procedures: Surgery Specimen Level III HEADER OPERATION: Laparoscopic, cholecystectomy and intraoperative cholangiogram PRE-OP DIAGNOSIS: Cholelithiasis TISSUE SUBMITTED: Gallbladder MICROSCOPIC DIAGNOSIS Gallbladder, cholecystectomy: Cholesterolosis, chronic cholecystitis and cholelithiasis. Benign pericystic lymph node. AM:frankie 03/13/18 MICROSCOPIC DESCRIPTION Slides are reviewed. GROSS DESCRIPTION Received is one container labeled with the patient's name and designated gallbladder. The specimen consists of a gallbladder measuring 5.5 x 2.6 x 2.6 cm. The external surface is smooth and glistening. Focally, it is granular, hemorrhagic and contains cautery artifact. The lumen of the gallbladder contains yellow-green mucoid bile and multiple yellow-white chalky calculi averaging 1.3 cm each. The mucosa is bile-stained and without any mass lesions. The gallbladder wall measures 0.2 cm in thickness and is free of mass lesions. Platform Worker sections of the gallbladder and the cystic duct are submitted in one cassette. / AM:frankie 03/12/18 TC:3 CPT: 70346
--- NOTE | 2018-03-09 15:00 | RAD_ITS ---
PROCEDURE: INTRAOPERATIVE CHOLANGIOGRAM. REASON FOR EXAM: Female, 27 years old. Cholelithiasis, cholecystitis. RADIATION DOSAGE (If Supplied By Facility): ( 1.03 ) mGy FLUOROSCOPY TIME (if supplied): (5.1) seconds TECHNIQUE: Real-time fluoroscopy was provided during intraoperative contrast infusion via the cystic duct. A single intraoperative spot view is submitted COMPARISON: Gallbladder ultrasound March 09, 2018; CT abdomen and pelvis July 29, 2016.. FINDINGS: Normal caliber intra-and extrahepatic bile ducts. There is tapering of the distal common bile duct, but no filling defects or strictures seen. Contrast flows to the duodenum. RAD/Cholangiogram/ O R,Initial IMPRESSION: Normal intraoperative cholangiogram. Electronically Signed: Nilay Javier MD at 8:06 EST , Service support ,
[2018-03-09] MEDS: Bupiv/Epi 0.5% Mpf 30 ML Vial (15:41)
--- NOTE | 2018-03-09 15:47 | OP.PCM_ITS ---
Report of Operation Date of Procedure: 03/09/18 Pre-Operative Diagnosis: cholelithiasis Post-Operative Diagnosis: cholelithiasis, chronic cholecystitis Surgery/Procedure Performed:: laparoscopic cholecystectomy with cholangiograms Description of Surgical Findings:: normal cholangiogram, stones in gallbladder director global strategic publisher sales: Maddie Reyes Type of Anesthesia:: General Anesthesiologist: Guru Lopez Specimen's removed: gallbladder and contents Estimated Blood Loss (mL): < 5 Fluids Replaced: 700 ml RL Description of Procedure: After informed consent was given, the patient was brought to the Operating Room. Appropriate time out protocol was followed. She was then placed in the supine position. The patient was then placed under general endotracheal anesthesia. The abdomen was then prepped with a sterile surgical skin preparation and sterile surgical drapes were placed. The infraumbilical skin fold was grasped with penetrating clamps and the skin and subcutaneous tissues were infiltrated with 0.5% marcaine with epinephrine. A skin incision was then made with a 15 blade scalpel. The anterior abdominal wall was elevated and a Veress needle was carefully inserted into the intraabdominal cavity. It was checked to be in the proper position with a normal saline drop test. A CO2 pneumoperitoneum was then created. Once this was achieved, then the Veress needle was removed and an 11mm trocar was placed in its stead. A 10mm laparoscope was then inserted into the trocar and careful attention was directed to the intraabdominal contents. There was no evidence of injury to any intraabdominal organs from insertion of the Veress needle or the trocar. Under direct visualization, a 5mm subxiphoid trocar and two lateral 5mm right subcostal trocars were placed. The skin and subcutaneous tissues at these sites were infiltrated with 0.5% marcaine with ep inephrine prior to placement of these trocars. Attention was then directed to the right upper quadrant of the abdomen. Graspers were placed in the lateral trocars to grasp the distal aspect of the gallbladder and direct it cephalad and to grasp the gallbladder at Downs?s pouch and direct it laterally. Dissection then began on the proximal gallbladder continuing down to the area of the triangle of Calot to bluntly dissect out the cystic duct. The neck of the gallbladder was identified and blunt dissection continued to dissect out a segment of the cystic duct. A clip was then placed on the neck of the gallbladder. A small ductotomy was then made. A Ranfac catheter was brought in through a separate skin incision and placed into the cystic duct. An intraoperative cholangiogram was performed under fluoroscopy. The xray revealed no lesions in the common bile duct, arborization of the biliary tree, and good flow into the duodenum. The Ranfac catheter was then removed and two clips were placed proximal to the ductotomy and the cystic duct was then transected. The cystic artery was visualized and bluntly isolated and then two clips were placed proximally and one clip distally and then it was transected between the proximal and distal clips. The gallbladder was then from the liver bed using electrocautery. It was then placed in an Endobag and thus able to be brought out via the periumbilical port. It was then forwarded to pathology for analysis. The liver bed was carefully examined. There was no evidence of bile leakage or bleeding. The cystic duct stump and cystic artery stump had their clips intact and there was no evidence of bile leakage or bleeding. The remainder of the abdomen was grossly normal. The CO2 was released and all trocars removed intact. The periumbilical fascia was approximated with a [id number] 0 vicryl suture. All skin incision were closed with 4-0 monocryl in a subdermal fashion. Cavilol and Steristrips were used to reinforce the skin closure. Sterile dressings were applied to all wounds. The patient was extubated and brought to the Recovery Room in stable condition. - Complications none noted - Admit VTE Documentation VTE Present on Admission: Yes VTE Mechan Device Prophylaxis: SCD's
[2018-03-10 04:37] VITALS: BP 116/64; PULSE 78; RESP 16; TEMP 36.9; O2SAT 97
[2018-03-10 07:29] VITALS: BP 111/71; PULSE 80; RESP 16; TEMP 37.3; O2SAT 100
[2018-03-10] MEDS: Morphine 4 MG/ML Syringe IV (07:33)
[2018-03-10] MEDS: 0.9% NaCl Peripheral Flush Adult/Peds IV (07:34)
--- NOTE | 2018-03-10 08:33 | PN.SURG_ITS ---
Subjective: Patient feeling much improved, tolerating liquids, passing flatus - Physical Exam General: Alert, Oriented x3 Oral: Moist Mucosa Neck: Supple Abdomen: Bowel Sounds Present, Soft, - - dressings intact - minimal seepage Vital Signs Temp Pulse Resp BP Pulse Ox 99.1 F 80 16 111/71 100 03/10/18 07:29 03/10/18 07:29 03/10/18 07:29 03/10/18 07:29 03/10/18 07:29 Oxygen Delivery Method Room Air Weight: 82.8 kg Body Mass Index (BMI) 31.3 Finger Stick Blood Glucose 80 Intake and Output for Last 24 Hours 03/08/18 03/09/18 03/10/18 23:59 23:59 23:59 Intake Total 1900 / 1900 400 / 400 Output Total 1300 / 1300 Balance 1900 / 1900 -900 / -900 Laboratory Tests Past 24 Hrs 03/09/18 09:11 Urine Color Yellow Urine Clarity Sl. Cloudy Urine pH 6.0 Ur Specific [place] 1.020 Urine Protein Negative Urine Glucose (UA) Normal Urine Ketones Negative Urine Occult Blood 10 H Urine Nitrite Negative Urine Bilirubin Negative Urine Urobilinogen Normal Ur Leukocyte Esterase Negative Urine RBC 0-5 SEEN Urine WBC 0 SEEN Ur Squamous Epith Cells 0-5 SEEN Urine Bacteria 0 SEEN Urine Mucus 0 SEEN Medical Necessity - Tobacco Use Smoking Status: Current every day smoker Assessment/Plan All Active Problems (Last Reviewed 11/24/17 @ 14:43 by Syl Lincoln) Abdominal wall cellulitis (Resolved) Allergic dermatitis (Resolved) Anemia in preg-unspec (Resolved) Breech presentation (Resolved) section wound complication (Resolved) False labor (Resolved) GBS (group B Streptococcus carrier), +RV culture, currently (Resolved) Incisional abscess (Resolved) Infertility (Resolved) Large for gestational age fetus affecting management of mother (Resolved) Marginal placenta previa (Resolved) Nausea & vomiting (Resolved) Previous section (Resolved) Rh negative status during (Resolved) Supervision of high risk , antepartum (Resolved) Supervision of normal (Resolved) UTI in (Resolved) Impression: POD#1 s/p laparoscopic cholecystectomy Plan: discharge to home to follow up as outpatient next week
--- OUTSIDE RECORDS SUMMARY | 2018-05-13 14:31 | XMS RPT_ITS ---
:1990 Author Organization OHIP Support Name Relationship Address Phone JANELLE JAQUEZ Unavailable [address] + [place] [address] [facility] Unavailable [address] + [place] [address] JANELLE JAQUEZ Unavailable [address] + [place] [address] [facility] Unavailable [address] + [place] [address] JANELLE JAQUEZ Unavailable [address] + [place] [address] [facility] Unavailable [address] + [place] [address] JANELLE JAQUEZ Unavailable [address] + [place] [address] [facility] Unavailable [address] + [place] [address] JANELLE JAQUEZ Unavailable [address] + [place] [address] [facility] Unavailable [address] + [place] [address] PRISCILA JAQUEZANNE Unavailable [address] + [place] [address] [facility] Unavailable [address] + [place] [address] DURTSLUIS JANELLE Unavailable [address] + [place] [address] [facility] Unavailable [address] + [place] [address] DURTSCHI, JANELLE Unavailable [address] + [place] [address] [facility] Unavailable [address] + [place] [address] DURTSCHI, JANELLE Unavailable [address] + [place] [address] [facility] Unavailable [address] + [place] [address] DURTSLUIS JANELLE Unavailable [address] + [place] [address] [facility] Unavailable [address] + [place] [address] GISELE JANELLE Unavailable [address] + [place] [address] [facility] Unavailable [address] + [place] [address] GISELE JANELLE Unavailable [address] + [place] [address] [facility] Unavailable [address] + [place] [address] ECTOR, CHRISTINE Unavailable [address] [place] [address] [facility] Unavailable [address] + [place] [address] DURMINDY JANELLE Unavailable [address] + [place] [address] [facility] Unavailable [address] + [place] [address] DURTSCHI JANELLE Unavailable [address] + [place] [address] [facility] Unavailable [address] + [place] [address] GISELE JANELLE Unavailable [address] + [place] [address] [facility] Unavailable [address] + [place] [address] JANELLE JAQUEZ Unavailable [address] + [place] [address] [facility] Unavailable [address] + [place] [address] JANELLE JAQUEZ Unavailable [address] + [place] [address] [facility] Unavailable [address] + [place] [address] JANELLE JAQUEZ Unavailable [address] + [place] [address] [facility] Unavailable [address] + [place] [address] JANELLE JAQUEZ Unavailable [address] + [place] [address] [facility] Unavailable [address] + [place] [address] ECTOR, CHRISTINE Unavailable [address] [place] [address] [facility] Unavailable [address] + [place] [address] ECTOR, CHRISTINE Unavailable [address] [place] [address] [facility] Unavailable [address] + [place] [address] ECTOR, CHRISTINE Unavailable [address] [place] [address] [facility] Unavailable [address] + [place] [address] ECTOR, CHRISTINE Unavailable [address] [place] [address] [facility] Unavailable [address] + [place] [address] BROTHERS, SUZANNE Unavailable Unavailable + ROWENA JAQUEZ Unavailable [address] [facility] + [place] [address] ECTOR, CHRISTINE Unavailable [address] + [address] [place] [address] [facility] Unavailable [address] + [place] [address] ECTOR, CHRISTINE Unavailable [address] [place] [address] [facility] Unavailable [address] + [place] [address] ECTOR, CHRISTINE Unavailable [address] [place] [address] [facility] Unavailable [address] + [place] [address] ECTOR, CHRISTINE Unavailable [address] [place] [address] [facility] Unavailable [address] + [place] [address] ECTOR, CHRISTINE Unavailable [address] [place] [address] [facility] Unavailable [address] + [place] [address] ECTOR, CHRISTINE Unavailable [address] [place] [address] [facility] Unavailable [address] + [place] [address] ECTOR, CHRISTINE Unavailable [address] [place] [address] [facility] Unavailable [address] + [place] [address] ECTOR, CHRISTINE Unavailable [address] [place] [address] [facility] Unavailable [address] + [place] [address] ECTOR, CHRISTINE Unavailable [address] [place] [address] [facility] Unavailable [address] + [place] [address] ECTOR, CHRISTINE Unavailable [address] [place] [address] [facility] Unavailable [address] + [place] [address] ECTOR, CHRISTINE Unavailable [address] [place] [address] [facility] Unavailable [address] + [place] [address] BROTHERS, SUZANNE Unavailable Unavailable + DURTSCHI, ROWENA Unavailable [address] [facility] + [place] [address] ECTOR, CHRISTINE Unavailable [address] + [address] [place] [address] [facility] Unavailable [address] + [place] [address] + [place] [address] + [place] [address] + [place] [address] BROTHERS, SUZANNE Unavailable Unavailable + DURTSCHI, ROWENA Unavailable [address] [facility] + [place] [address] BROTHERS, SUZANNE Unavailable Unavailable + DURTSCHI, ROWENA Unavailable [address] [facility] + [place] [address] + [place] [address] + [place] [address] [facility] Unavailable [address] + [place] [address] [address] Un[address] + [place] [address] [facility] Unavailable [address] + [place] [address] [facility] Unavailable [address] + [place] [address] IFOR[facility] Unavailable [address] [phone] [place] [address] IFORCE Unavailable [address] [facility] [phone] [place] [address] IFORCE Unavailable [address] [phone] [place] [address] Care Team Providers Name Role Phone CHRISTINE COOMBS Attending Unavailable CHRISTINE COOMBS Referring Unavailable SHANTHI FELTON Referring Unavailable GANTA, GONZALES C Primary Care Unavailable JOSE CORCORAN Attending Unavailable JOSE CORCORAN Attending Unavailable JARRODANTHONYSHANTHI Referring Unavailable GANTA, GONZALES C Primary Care Unavailable SHILOH CORTES Attending Unavailable JARRODANTHONY, SHANTHI Cortez Referring Unavailable GANTA, GONZALES C Primary Care Unavailable JOSE CORCORAN Attending Unavailable JARRODANTHONYSHANTHI Referring Unavailable GANTA, GONZALES C Primary Care Unavailable Ganta, Gonzales Primary Care Unavailable Christine Coombs Admitting Unavailable Christine Coombs Attending Unavailable Christine Coombs Referring Unavailable Ganta, Gonzales Primary Care Unavailable Cristobal Choudhury Attending Unavailable Leif Hauser Attending Unavailable Primay Care Physicia, No Primary Care Unavailable Shanthi Felton Attending Unavailable EldaLyn Attending Unavailable Ganta, Gonzales Primary Care Unavailable MarcanthonyShanthi Attending Unavailable Primay Care Physicia, No Referring Unavailable Ganta, Gonzales Primary Care Unavailable BethelLyn Attending Unavailable Ganta, Gonzales Referring Unavailable Ganta, Gonzales Primary Care Unavailable Ganta, Gonzales Primary Care Unavailable Carl Martinez Attending Unavailable Manny Davis Admitting Unavailable MarcanthonyShanthi Attending Unavailable Ganta, Gonzales Referring Unavailable Ganta, Gonzales Primary Care Unavailable MarcanthonyShanthi Admitting Unavailable MarcanthonyShanthi Attending Unavailable Ganta, Gonzales Primary Care Unavailable JarrodanthonyShanthi Referring Unavailable MarcanthonyShanthi Attending Unavailable MarcanthShanthi johnson Referring Unavailable Ganta, Gonzales Primary Care Unavailable MarcanthonyShanthi Attending Unavailable Primay Care Physicia, No Referring Unavailable BethelLyn Attending Unavailable Primay Care Physicia, No Referring Unavailable Ganta, Gonzales Primary Care Unavailable Shanthi Felton Attending Unavailable Ganta, Gonzales Primary Care Unavailable Tomás Castle Attending Unavailable Ganta, Gonzales Primary Care Unavailable Marcanthony, Shanthi Attending Unavailable Primay Care Physicia, No Referring Unavailable Primay Care Physicia, No Primary Care Unavailable Primay Care Physicia, No Primary Care Unavailable Dion Spencer Attending Unavailable Primay Care Physicia, No Primary Care Unavailable Marcanthony, Shanthi Referring Unavailable ConroyThelma Attending Unavailable Marcanthony, Shanthi Attending Unavailable Primay Care Physicia, No Referring Unavailable Primay Care Physicia, No Primary Care Unavailable Marcanthony, Shanthi Attending Unavailable Primay Care Physicia, No Referring Unavailable Primay Care Physicia, No Primary Care Unavailable Bethel, Lyn Attending Unavailable Elda, Lyn Referring Unavailable Primay Care Physicia, No Primary Care Unavailable Marcanthony, Shanthi Attending Unavailable Marcanthony, Shanthi Referring Unavailable Primay Care Physicia, No Primary Care Unavailable Bethel, Lyn Attending Unavailable Ganta, Gonzales Primary Care Unavailable Bethel, Lyn Referring Unavailable Elda, Lyn Attending Unavailable Ganta, Gonzales Referring Unavailable Ganta, Gonzales Primary Care Unavailable ASSESSMENT, HEALTH RISK Attending Unavailable Ganta, Gonzales Primary Care Unavailable Marcanthony, Shanthi Attending Unavailable Ganta, Gonzales Referring Unavailable Marcanthony, Shanthi Attending Unavailable Marcanthony, Shanthi Referring Unavailable Ganta, Gonzales Primary Care Unavailable Marcanthony, Shanthi Attending Unavailable Ganta, Gonzales Primary Care Unavailable Marcanthony, Shanthi Referring Unavailable Marcanthony, Shanthi Attending Unavailable Ganta, Gonzales Referring Unavailable Marcanthony, Shanthi Attending Unavailable Ganta, Gonzales Referring Unavailable Marcanthony, Shanthi Attending Unavailable Marcanthony, Shanthi Referring Unavailable Ganta, Gonzales Primary Care Unavailable Elda, Lyn Attending Unavailable Elda, Lyn Referring Unavailable Ganta, Gonzales Primary Care Unavailable Elda, Lyn Attending Unavailable Ganta, Gonzales Referring Unavailable Ganta, Gonzales Primary Care Unavailable Marcanthony, Shanthi Attending Unavailable Ganta, Gonzales Referring Unavailable Marcanthony, Shanthi Attending Unavailable Ganta, Gonzales Primary Care Unavailable Marcanthony, Shanthi Referring Unavailable Marcanthony, Shanthi Attending Unavailable Ganta, Gonzales Referring Unavailable Ganta, Gonzales Primary Care Unavailable Salvatore Mcgill Attending Unavailable Marcanthony, Shanthi Admitting Unavailable Marcanthony, Shanthi Attending Unavailable Marcanthony, Shanthi Referring Unavailable Ganta, Gonzales Primary Care Unavailable Marcanthony, Shanthi Consulting Unavailable Marcanthony, Shanthi Admitting Unavailable Marcanthony, Shanthi Attending Unavailable Marcanthony, Shanthi Referring Unavailable Ganta, Gonzales Primary Care Unavailable Marcanthony, Shanthi Consulting Unavailable Marcanthony, Shanthi Attending Unavailable Primay Care Physicia, No Referring Unavailable Marcanthony, Shanthi Admitting Unavailable Marcanthony, Shanthi Attending Unavailable Marcanthony, Shanthi Referring Unavailable Ganta, Gonzales Primary Care Unavailable Marcanthony, Shanthi Consulting Unavailable Marcanthony, Shanthi Attending Unavailable Ganta, Gonzales Referring Unavailable Ganta, Gonzales Primary Care Unavailable Marcanthony, Shanthi Attending Unavailable Ganta, Gonzales Primary Care Unavailable Marcanthony, Shanthi Consulting Unavailable Ganta, Gonzales Primary Care Unavailable Marcanthony, Shanthi Attending Unavailable Marcanthony, Shanthi Attending Unavailable Marcanthony, Shanthi Referring Unavailable Ganta, Gonzales Primary Care Unavailable Marcanthony, Shanthi Attending Unavailable Primay Care Physicia, No Referring Unavailable Marcanthony, Shanthi Attending Unavailable Primay Care Physicia, No Referring Unavailable Ganta, Gonzales Primary Care Unavailable EldaLyn Attending Unavailable Ganta, Gonzales Referring Unavailable Primay Care Physicia, No Primary Care Unavailable PROBLEMS PROBLEMS DATE TYPE CONDITION / CODE ATTENDING STATUS SOURCE 03/12/2018 Unknown Z09 - Encounter for Christine Coombs Active [facility] follow-up Community examination after Hospital completed treatment Repository for conditions other than malignant neoplasm / Z09(ICD-10) 11/25/2017 Unknown Z12.4 - Encounter Marcanthony, Active [place] for screening for [facility] malignant neoplasm [facility] of cervix / Repository Z12.4(ICD-10) 11/24/2017 Unknown Z39.2 - Encounter Marcanthony, Active [place] for routine [facility] follow-up Hospital / Z39.2(ICD-10) Repository 11/15/2017 Unknown K08.9 - Disorder of Nano, Salvatore Active [place] teeth and supporting Community structures, Hospital unspecified / Repository K08.9(ICD-10) 10/15/2017 Unknown G89.18 - Other acute Marcanthony, Active [facility] postprocedural pain [facility] / G89.18(ICD-10) Hospital Repository 10/03/2017 Unknown O36.63X0 - Maternal Marcanthony, Active [facility] care for excessive [facility]hi Community growth, third Hospital trimester, not Repository applicable or unspecified / O36.63X0(ICD-10) 10/03/2017 Unknown O09.893 - Marcanthony, Active [place] Supervision of other [facility] high risk Hospital pregnancies, third Repository trimester / O09.893(ICD-10) 10/03/2017 Unknown Z98.891 - History of Marcanthony, Active [place] uterine scar from [facility] previous surgery / Hospital Z98.891(ICD-10) Repository 10/03/2017 Unknown O23.43 - Unspecified Marcanthony, Active [facility] infection of urinary [facility] tract in , Hospital third trimester / Repository O23.43(ICD-10) 10/03/2017 Unknown O09.90 - Supervision Marcanthony, Active [place] of high risk [facility] , Hospital unspecified, Repository unspecified trimester / O09.90(ICD-10) 10/03/2017 Unknown F32.9 - Major Marcanthony, Active [place] depressive disorder, [facility] single episode, Hospital unspecified / Repository F32.9(ICD-10) 10/03/2017 Unknown O99.013 - Anemia Marcanthony, Active [place] complicating [facility] , third Hospital trimester / Repository O99.013(ICD-10) 10/03/2017 Unknown E28.2 - Polycystic Marcanthony, Active [place] ovarian syndrome / [facility] E28.2(ICD-10) Hospital Repository 09/25/2017 Unknown Z34.90 - Encounter Marcanthony, Active [place] for supervision of [facility] normal , Hospital unspecified, Repository unspecified trimester / Z34.90(ICD-10) 09/21/2017 Unknown O44.20 - Partial Bethel, Lyn Active [facility] placenta previa NOS Community or without Hospital hemorrhage, Repository unspecified trimester / O44.20(ICD-10) 09/13/2017 Unknown O36.60X0 - Maternal Elda, Lyn Active [facility] care for excessive [facility] growth, Hospital unspecified Repository trimester, not applicable or unspecified / O36.60X0(ICD-10) 09/13/2017 Unknown O99.019 - Anemia Elda, Lyn Active [facility] complicating Community , Hospital unspecified Repository trimester / O99.019(ICD-10) 08/29/2017 Unknown Z23 - Encounter for Marcanthony, Active [place] immunization / [facility] Z23(ICD-10) Hospital Repository 09/04/2017 Unknown O60.03 - Marcanthony, Active [place] labor without [facility] delivery, third Hospital trimester / Repository O60.03(ICD-10) 09/04/2017 Unknown Z3A.31 - 31 weeks Marcanthony, Active [place] gestation of [facility] / Hospital Z3A.31(ICD-10) Repository 08/31/2017 Unknown S09.93XA - Ungur, Remus Active [facility] Unspecified injury Community of face, initial Hospital encounter / Repository S09.93XA(ICD-10) 08/15/2017 Unknown O99.012 - Anemia Marcanthony, Active [place] complicating [facility] , second Hospital trimester / Repository O99.012(ICD-10) 08/16/2017 Unknown O44.00 - Complete Elda, Lyn Active [facility] placenta previa NOS Community or without Hospital hemorrhage, Repository unspecified trimester / O44.00(ICD-10) 07/21/2017 Unknown O09.899 - Marcanthony, Active [place] Supervision of other [facility] high risk Hospital pregnancies, Repository unspecified trimester / O09.899(ICD-10) 07/21/2017 Unknown Z67.91 - Unspecified Marcanthony, Active [facility] blood type, Rh [facility] negative / Hospital Z67.91(ICD-10) Repository 06/21/2017 Unknown Z3A.23 - 23 weeks Bethel, Lyn Active [facility] gestation of Community / Hospital Z3A.23(ICD-10) Repository 06/21/2017 Unknown O09.891 - Elda, Lyn Active [facility] Supervision of other [facility] high risk Hospital pregnancies, first Repository trimester / O09.891(ICD-10) 06/21/2017 Unknown O23.41 - Unspecified Bethel, Lyn Active [facility] infection of urinary Community tract in , Hospital first trimester / Repository O23.41(ICD-10) 04/07/2017 Unknown N92.6 - Irregular Marcanthony, Active [place] menstruation, [facility] unspecified / Hospital N92.6(ICD-10) Repository 03/21/2017 Unknown R30.0 - Dysuria / Elda, Molly Active [place] R30.0(ICD-10) [facility] Repository PROCEDURES PROCEDURES No Procedure Records FoundRESULTS RESULTS PROGRESS Observed: 03/16/2018 Status: COMPLETED Source: [place] 8:41 AM [facility] REPOSITORY HNO ID: [id number] Author: Christine Coombs Service: (none) Author Type: Physician Type: Progress Notes Filed: 03/16/2018 8:44 AM Note Text: Miguel is s/p laparoscopic cholecystectomy with cholangiograms at [facility] on 03/09/18. This was done for cholelithiasis and cholecystitis with hydrops. Still with complaint of lateral trocar site discomfort but tolerating with heating pads and ibuprofen. Denies fevers. Tolerating diet. Normal bowel movements. Examination: abdomen is soft and benign. Wounds are all healed with no evidence of infection. Impression: s/p laparoscopic cholecystectom Plan: follow up as per needed. Patient needs return to work, due to child support situation. Patient to return to her PCP, for medical care. CNOV Observed: 03/16/2018 Status: COMPLETED Source: [place] 8:40 AM [facility] REPOSITORY Office Visit (GENSWS) ROWENA JAQUEZ ([id number]) 1990 F Date Time Provider Department 03/16/18 8:40 AM CHRISTINE COOMBS During your visit today, we recorded the following information about you: Christine Coombs MD 03/16/2018 8:44 AM Signed Miguel is s/p laparoscopic cholecystectomy with cholangiograms at [facility] on 03/09/18. This was done for cholelithiasis and cholecystitis with hydrops. Still with complaint of lateral trocar site discomfort but tolerating with heating pads and ibuprofen. Denies fevers. Tolerating diet. Normal bowel movements. Examination: abdomen is soft and benign. Wounds are all healed with no evidence of infection. Impression: s/p laparoscopic cholecystectom Plan: follow up as per needed. Patient needs return to work, due to child support situation. Patient to return to her PCP, for medical care. Referring Provider: CHRISTINE COOMBS [[id number]] Allergies As of Date: 03/16/2018 Noted Allergy Reaction NAPROXEN 03/24/2015 2 - Rash PENICILLINS 08/29/2014 4 - Hives Date Reviewed: 03/16/2018 Reviewed by: Christine Coombs - Fully Assessed Reason for Visit: Post Op [174] Primary Visit Diagnosis:Status post laparoscopic cholecystectomy [Z90.49] Prescriptions as of 03/16/2018 Sig: ACETAMINOPHEN 500 MG TABLET Take 2 tablets by mouth every* Patient not taking: Reported on 03/16/2018 ZOFRAN ORAL Take by mouth. IRON ORAL Take by mouth. VITAMIN ORAL Take by mouth. POTASSIUM ORAL Take by mouth. More... Problem List As Of Date 03/16/2018 Noted Resolved Rh negative state in antepartum period [O09.899*INVALID FOR*08/25/2016 More... 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 with care elsewhere, antepar*INVALID FOR*08/25/2016 More... History of seizure [Z87.898] INVALID FOR*08/25/2016 More... History of depression [Z87.59, Z86.5*INVALID FOR*08/25/2016 More... History of delivery [Z98.891] INVALID FOR*08/25/2016 More... PUPP (pruritic urticarial papules and plaques o*INVALID FOR*08/25/2016 Encounter Status:Closed by MD CHRISTINE COOMBS on 03/16/18 CNCO Observed: 03/15/2018 Status: COMPLETED Source: [place] 12:00 AM [facility] REPOSITORY Letter Text Department of General Surgery Dr. Christine Coombs [address] [place], [place] [address] 03/15/2018 TO WHOM IT MAY CONCERN: This is to confirm that Rowena Jaquez has an appointment on 03/16/2018 at 0840 at the [facility] in the Department of General Surgery with Dr. Christine Coombs and may return to work on 03/16/2018 with a lifting restriction of nothing greater than 20 pounds for the next week. Sincerely yours, Dr. hCristine Coombs 12 LEAD ELECTROCARDIOGRAM Observed: 03/14/2018 Status: F Source: [place] 1:57 PM [facility] REPOSITORY [facility] Cardiovascular Services [address] [place] [address] 12 Lead EKG 03/09/18 1346 MR#: [id number] Acct: [id number] Name: ROWENA JAQUEZ Rep #: [id number] : 1990 27 From: Roger Montes De Oca MD Attending Dr: Christine Coombs MD Status: DIS NI Ordering Dr: Christine Coombs MD Date: 03/09/18 [place] [facility] [place] F C Admitted: 03/09/18 Test Reason : PRE OP Blood Pressure : / mmHG Vent. Rate : 067 BPM Atrial Rate : 067 BPM P-R Int : 152 ms QRS Dur : 090 ms QT Int : 424 ms P-R-T Axes : 031 057 037 degrees QTc Int : 448 ms Normal sinus rhythm Normal ECG Confirmed by WIN BOLAND, ROGER ([id number]), news videotape editor ABE MEYER ([id number]) on 03/14/2018 1:56:53 PM Referred By: Christine Coombs Confirmed By:ROGER MONTES DE OCA MD 03/14/18 1356 Date Roger Montes De Oca MD CC: Gonzales Goddard MD; Christine Coombs MD Signed EMERGENCY DEPARTMENT Observed: 03/11/2018 Status: F Source: [place] SUMMARY 12:49 PM [facility] REPOSITORY [facility] Medical Records Department [address] [place] [address] Emergency Department Summary 03/11/18 1125 MR#: [id number] Acct: [id number] Name: EDDIE JAQUEZA Desi Rep #: [id number] : 1990 27 From: Jordan Choudhury MD PCP: Gonzales Goddard MD Status: REG ER - ER Visit Summary Date of Service: 03/11/18 Chief Complaint: History of Present Illness: The patient is a 27 F status post laparoscopic cholecystectomy on 03/09, discharged on 119 presenting with right upper quadrant abdominal pain. She states that it has been gradually worse since the surgery. No chest pain. No shortness of breath. No lower extremity pain or swelling. She is nauseated but not vomiting. Physical Examination: Those are within normal limits. Not in distress. Pulse oximetry 100%. Abdomen somewhat distended. Incisions are clean and dry. No significant tenderness. No rebound or guarding. Test Results: CBC, BMP, hepatic, and lipase all within normal limits Emergency Department Course and Treatment: She was given IV morphine and her pain resolved. No evidence of acute surgical abdomen. No chest pain or shortness of breath to suggest pulmonary embolism. Treatment Plan: I discussed the case with Dr. Christine Coombs and reviewed the laboratory studies. She agrees that imaging is not indicated at this time and recommended that she follow up early this week and that we give her a longer acting pain medicine to cover her for today. She was given a 10 mg OxyContin prior to discharge. She looks well and is resting comfortably. Pain is markedly improved. Disposition: Home stable Impression: Initial encounter postoperative abdominal pain This note was generated with [employer] dictation software. It may contain incorrect words, spelling, and punctuation that were not noted in review of the chart prior to signing ED Disposition - Plan for ED Patient: Chief Complaint: Abd Pain Instructions: Wound Care Referrals: Christine Coombs MD [STAFF PHYSICIAN] - What to do if you have Problems For any increased pain, shortness of breath, bleeding, nausea or vomiting, chest pain, or any unexpected problems, contact your Primary Care Provider. Call [facility] ([phone]) or report to the closest Emergency Room. Call 911 if necessary. 03/11/18 1249 <Electronically signed by Jordan Choudhury MD> Date Jordan Choudhury MD Cosigner Signature (If Indicated): Date CC: Gonzales Goddard MD CBC W/DIFF, AUTOMATED Collected: 03/11/2018 Status: F Source: VALATIE 11:40 AM [facility] REPOSITORY TYPE CODE TESTS RESULT OUT OF RANGE REFERENCE UNITS LAB L100.1000 4.4-11.0 K/mm3 Normal WBC 7.4 LAB L100.1200 4.2-5.4 M/mm3 Low RBC 3.97 LAB L100.1300 12.0-15.0 g/dl Low HGB 10.7 LAB L100.1400 37-47 % Low HCT 34.2 LAB L100.1500 81-99 fL Normal MCV 86.1 LAB L100.1600 27.0-32.0 pg Normal MCH 27.0 LAB L100.1700 32-36 g/gl Low MCHC 31.3 LAB L100.1810 11.6-14.6 % Normal RDW CV 13.1 LAB L100.1820 35.1-43.9 fl Normal RDW SD 40.2 LAB L100.1900 150-450 K/mm3 Normal PLT 313 LAB L100.2000 6.2-12.0 fl Normal MPV 9.0 LAB L100.2100 47-70 % Low NEUT% 42.7 LAB L100.2200 19-41 % High LY% 48.5 LAB L100.2300 0-10 % Normal MONO% 7.9 LAB L100.2400 0-5 % Normal EO% 0.5 LAB L100.2500 0-1 % Normal BASO% 0.3 LAB L100.2550 0.0-0.9 % Normal IM GRAN % 0.100 Result Comment: IG% - Immature Granulocytes (promyelocytes, myelocytes and metamyelocytes) > 1% indicates that a LEFT SHIFT is Present. LAB L100.2620 2.0-7.7 X10 3/uL Normal Absolute Neut 3.2 LAB L100.2720 0.83-4.51 X10 3/ul Normal Absolute Lymph 3.61 Performed By: #### L100.0100 #### [facility] [address] [place], [address] BASIC METABOLIC Collected: 03/11/2018 Status: F Source: [place] PROFILE (BMP) 11:40 AM [facility] REPOSITORY TYPE CODE TESTS RESULT OUT OF RANGE REFERENCE UNITS LAB L501.0100 74-106 mg/dL Normal GLU 74 Result Comment: Please note revised GLUCOSE reference range effective 2017. LAB L501.1000 7-18 mg/dL Normal BUN 13 LAB L501.1100 0.55-1.02 mg/dL Normal CREAT,SERUM 0.77 Result Comment: The validity of the calculated GFR AND GFRAA in patients over 70 years has not been determined. Clinical correlation is essential. LAB L501.1110 >60 mL/min Normal EST GFR 94 Result Comment: Non- GFR Calc LAB L501.1115 >60 mL/min Normal EST GFR - AA 114 Result Comment: GFR Calc LAB L501.1255 ml/min Normal Estimated CRCL 93.09 LAB L501.1300 10-20 RATIO Normal BUN/CRE 16.9 LAB L501.2200 8.5-10 mg/dL Low .1 CA 8.3 LAB L501.5300 136-14 mmol/L Normal 5 NA 139 LAB L501.5600 3.5-5. mmol/L Low 1 K 3.4 LAB L501.5900 98-107 mmol/L Normal CL 105 LAB L501.6100 21.0-3 mmol/L Normal 2.0 CO2 26.0 LAB L501.6200 5-15 Normal GAP 8 Performed By: #### L500.2500, L500.3400, L501.2450 #### [facility] [address] [place], [address] LIVER PROFILE Collected: 03/11/2018 Status: F Source: [place] 11:40 AM [facility] REPOSITORY TYPE CODE TESTS RESULT OUT OF RANGE REFERENCE UNITS LAB L501.1500 6.4-8.2 g/dL Normal T PROT 7.4 LAB L501.1800 3.2-5.0 g/dL Normal ALB 3.5 LAB L501.1950 2.2-4.2 g/dL Normal GLOB 3.9 LAB L501.4100 15-37 U/L Normal AST 25 LAB L501.4305 45-117 U/L Normal ALK P 57 LAB L501.4405 13-56 U/L Normal ALT 36 LAB L501.4600 0.20-1.00 mg/dL Normal T BILI 0.30 LAB L501.4700 0.00-0.30 mg/dL Normal D BILI 0.10 Performed By: #### L500.2500, L500.3400, L501.2450 #### [facility] [address] [place], [address] LIPASE Collected: 03/11/2018 Status: F Source: [place]AT[place] 11:40 AM [facility] REPOSITORY TYPE CODE TESTS RESULT OUT OF RANGE REFERENCE UNITS LAB L501.2450 73-393 U/L Normal LIPASE 120 Performed By: #### L500.2500, L500.3400, L501.2450 #### [facility] [address] [place], [address] OPERATIVE REPORT Observed: 03/09/2018 Status: F Source: [place] 4:17 PM [facility] REPOSITORY [facility] Medical Records Department [address] [place] [address] Operative Report 03/09/18 1546 MR#: [id number] Acct: [id number] Name: ROWENA JAQUEZ Rep #: [id number] : 1990 27 From: Christine Coombs MD PCP: Gonzales Goddard MD Status: ADM NI Y Location: [place] [address] Report of Operation Date of Procedure: 03/09/18 Pre-Operative Diagnosis: cholelithiasis Post-Operative Diagnosis: cholelithiasis, chronic cholecystitis Surgery/Procedure Performed:: laparoscopic cholecystectomy with cholangiograms Description of Surgical Findings:: normal cholangiogram, stones in gallbladder pantograph watcher: Maddie Reyes Type of Anesthesia:: General Anesthesiologist: Guru Lopez Specimen's removed: gallbladder and contents Estimated Blood Loss (mL): < 5 Fluids Replaced: 700 ml RL Description of Procedure: After informed consent was given, the patient was brought to the Operating Room. Appropriate time out protocol was followed. She was then placed in the supine position. The patient was then placed under general endotracheal anesthesia. The abdomen was then prepped with a sterile surgical skin preparation and sterile surgical drapes were placed. The infraumbilical skin fold was grasped with penetrating clamps and the skin and subcutaneous tissues were infiltrated with 0.5% marcaine with epinephrine. A skin incision was then made with a 15 blade scalpel. The anterior abdominal wall was elevated and a Veress needle was carefully inserted into the intraabdominal cavity. It was checked to be in the proper position with a normal saline drop test. A CO2 pneumoperitoneum was then created. Once this was achieved, then the Veress needle was removed and an 11mm trocar was placed in its stead. A 10mm laparoscope was then inserted into the trocar and careful attention was directed to the intraabdominal contents. There was no evidence of injury to any intraabdominal organs from insertion of the Veress needle or the trocar. Under direct visualization, a 5mm subxiphoid trocar and two lateral 5mm right subcostal trocars were placed. The skin and subcutaneous tissues at these sites were infiltrated with 0.5% marcaine with epinephrine prior to placement of these trocars. Attention was then directed to the right upper quadrant of the abdomen. Graspers were placed in the lateral trocars to grasp the distal aspect of the gallbladder and direct it cephalad and to grasp the gallbladder at Downs s pouch and direct it laterally. Dissection then began on the proximal gallbladder continuing down to the area of the triangle of Calot to bluntly dissect out the cystic duct. The neck of the gallbladder was identified and blunt dissection continued to dissect out a segment of the cystic duct. A clip was then placed on the neck of the gallbladder. A small ductotomy was then made. A Ranfac catheter was brought in through a separate skin incision and placed into the cystic duct. An intraoperative cholangiogram was performed under fluoroscopy. The xray revealed no lesions in the common bile duct, arborization of the biliary tree, and good flow into the duodenum. The Ranfac catheter was then removed and two clips were placed proximal to the ductotomy and the cystic duct was then transected. The cystic artery was visualized and bluntly isolated and then two clips were placed proximally and one clip distally and then it was transected between the proximal and distal clips. The gallbladder was then from the liver bed using electrocautery. It was then placed in an Endobag and thus able to be brought out via the periumbilical port. It was then forwarded to pathology for analysis. The liver bed was carefully examined. There was no evidence of bile leakage or bleeding. The cystic duct stump and cystic artery stump had their clips intact and there was no evidence of bile leakage or bleeding. The remainder of the abdomen was grossly normal. The CO2 was released and all trocars removed intact. The periumbilical fascia was approximated with a nprwtg-[id number] 0 vicryl suture. All skin incision were closed with 4-0 monocryl in a subdermal fashion. Cavilol and Steristrips were used to reinforce the skin closure. Sterile dressings were applied to all wounds. The patient was extubated and brought to the Recovery Room in stable condition. - Complications none noted - Admit VTE Documentation VTE Present on Admission: Yes VTE Mechan Device Prophylaxis: SCD's 03/09/18 1617 <Electronically signed by Christine Coombs MD> Date Christine Coombs MD CC: Gonzales Goddard MD; Christine Coombs MD Signed DISCHARGE INSTRUCTION Observed: 03/09/2018 Status: F Source: VALATIE 4:07 PM [facility] REPOSITORY [facility] Medical Records Department [address] [place] [address] Instructions for Home/Discharge Instructions 03/09/18 1457 MR#: [id number] Acct: [id number] Name: ROWENA JAQUEZ Rep #: [id number] : 1990 27 From: Christine Coombs MD PCP: Gonzales Goddard MD Status: ADM NI Discharge Diet: No Restrictions - drink plenty of fluids avoid caffeinated products and carbonated beverages for a few days Discharge Activity: Return to Normal Activity, May not drive while taking narcotic pain medications. - No driving for about a week. Return to work on:: 03/26/18 Lifting Restrictions: no lifting greater than 20 pounds for 2 weeks Call your doctor if your incision/area has: Continuous Slow Oozing, Foul Smelling Discharge Call your doctor if you observe: Fever of 101 or Higher Additional Dressing/Incision Instructions:: Leave dressings in place. May get wet in shower. Do not soak wounds - no tub baths/swimming Additional Instructions: for pain control - can also take 600 mg ibuprofen every 6 hours prn pain Allergies/Adverse Reactions: Allergies acetaminophen [From [place]] Allergy (Verified 03/09/18 06:52) Hives hydrocodone [From [place]] Allergy (Verified 03/09/18 06:52) Hives naproxen Allergy (Verified 03/09/18 06:52) Rash Penicillins Allergy (Verified 03/09/18 06:52) Hives also has hematemesis Medications to take at Discharge Oxycodone [Oxyir] 5 mg PO Q8H PRN PRN 5 Days #15 tab 03/09/18 The following prescriptions were given: Oxycodone [Oxyir] 5 mg PO Q8H PRN PRN 5 Days #15 tab PRN Reason: Mod-Severe Pain (4-11/29) Test Results: Test results from this visit will be discussed in further detail at your follow-up appointment, if applicable. Please Follow Up With: Christine Coombs MD - call When: to be seen in 7-10 days, please call for date and time, thank you 03/09/18 5217 <Electronically signed by Christine Coombs MD> Date Christine Coombs MD CC: Gonzales Goddard MD Signed EMERGENCY DEPARTMENT Observed: 03/09/2018 Status: F Source: VALATIE SUMMARY 3:45 PM [facility] REPOSITORY [facility] Medical Records Department [address] [place] [address] Emergency Department Summary 03/09/18 0918 MR#: [id number] Acct: [id number] Name: EDDIE JAQUEZMatti Weeks Rep #: [id number] : 1990 27 From: Salvatore Mcgill MD PCP: Gonzales Goddard MD Status: ADM NI - ER Visit Summary Date of Service: 03/09/18 Chief Complaint: Abdominal pain History of Present Illness: The patient is a 27 F abdominal pain since yesterday. Worse after eating Urdu food. The pain is sharp and radiates to her back and shoulder on the right. Associate with nausea, vomiting, and diarrhea. Denies any fevers. Denies any history of this in the past. She had a in about 5 months ago. She is not breast-feeding. She has had a history of 3 C-sections, tubal ligation, and a postop infection after 1 of the C-sections requiring a wound VAC. Physical Examination: Afebrile and vital signs unremarkable. Alert and oriented. No acute distress. Heart regular. Lungs clear. Abdomen tender in the right upper quadrant. No guarding or rebound. Skin is normal in color. Test Results: Hemoglobin 10.8 but otherwise labs unremarkable. Urinalysis pending. test negative. Ultrasound showed multiple gallstones and sonographic Garcia sign. No wall thickening, distention, or pericholecystic fluid. Emergency Department Course and Treatment: Patient treated with fluids, Zofran, fentanyl. She had continued pain and required additional pain medicine. She was given morphine. Patient has biliary colic without any evidence of cholecystitis or other complications. She is having intractable pain, requiring multiple doses of IV pain medicine. She was discussed with Dr. Coombs who will admit for surgery later today, this afternoon. The patient was n.p.o. since around 1 AM today when she had some water. She was advised by me to continue to be n.p.o. Treatment Plan: As above Disposition: Admission Impression: 1. Biliary colic This note was generated with [employer]um[employer] dictation software. It may contain incorrect words, spelling, and punctuation that were not noted in review of the chart prior to signing ED Disposition - Plan for ED Patient: Chief Complaint: Abd Pain Referrals: Gonzales Goddard MD [Primary Care Provider] - What to do if you have Problems For any increased pain, shortness of breath, bleeding, nausea or vomiting, chest pain, or any unexpected problems, contact your Primary Care Provider. Call [facility] ([phone]) or report to the closest Emergency Room. Call 911 if necessary. 03/09/18 0838 <Electronically signed by Salvatore Mcgill MD> Date Salvatore Mcgill MD Cosigner Signature (If Indicated): Date CC: Gonzales Goddard MD GALLBLADDER Observed: 03/09/2018 Status: F Source: VALATIE 3:00 PM [facility] REPOSITORY Patient: ROWENA JAQUEZ : 1990 (27/) Acct Num: [id number] Phys: Malvin BOLAND,Christine Unit Num: [id number] Loc: MS3 [id number] Specimen: [id number] Received: 03/09/181603 Spec Type: GALLBLADDE TISSUES 1 TISSUES: Gallbladder, NOS GROSS DESCRIPTION Received is one container labeled with the patient's name and designated gallbladder. The specimen consists of a gallbladder measuring 5.5 x 2.6 x 2.6 cm. The external surface is smooth and glistening. Focally, it is granular, hemorrhagic and contains cautery artifact. The lumen of the gallbladder contains yellow-green mucoid bile and multiple yellow-white chalky calculi averaging 1.3 cm each. The mucosa is bile-stained and without any mass lesions. The gallbladder wall measures 0.2 cm in thickness and is free of mass lesions. Thermospray Operator sections of the gallbladder and the cystic duct are submitted in one cassette. / AM:frankie 03/12/18 TC:3 CPT: 97132 HEADER OPERATION: Laparoscopic, cholecystectomy and intraoperative cholangiogram PRE-OP DIAGNOSIS: Cholelithiasis TISSUE SUBMITTED: Gallbladder MICROSCOPIC DESCRIPTION Slides are reviewed. MICROSCOPIC DIAGNOSIS Gallbladder, cholecystectomy: Cholesterolosis, chronic cholecystitis and cholelithiasis. Benign pericystic lymph node. AM:frankie 03/13/18 Signed Roberto Maxwell, 03/13/18 <signature on file> Performed By: #### PGALL #### [facility] [address] [place] [address]. [place], [address] HISTORY AND PHYSICAL Observed: 03/09/2018 Status: F Source: [place]AT[place] EXAM 2:44 PM [facility] REPOSITORY [facility] Medical Records Department [address] [place] [address] History and Physical 03/09/18 1437 MR#: [id number] Acct: [id number] Name: ROWENA JAQUEZ Rep #: [id number] : 1990 27 From: Christine Coombs MD PCP: Gonzales Goddard MD Status: ADM NI Y Location: UT3 WR980-6 History and Physical Date of Admission: 03/09/18 Chief Complaint: abdominal pain History of Present Illness: 27 y/o WF presents with abdominal pain - severe pain began this morning. She has noted twinges of pain for about a month. Points to right upper quadrant. Seen in ED -normal WBC, normal LFTs. US findings of cholelithiasis. Patient denies fevers. Has had nausea and emesis. denies constipation Has had diarrhea Past Medical History: denies major medical illnesses Past Surgical History: csections - one developed wound infection Medications: denies taking chronic medications Allergies: acetaminophen norco penicillins Social history: TOB use yes Works in environmental services in [employer] Review of Systems: General - denies fevers Cardiovascular denies chest pain, denies history of heart attack Pulmonary denies shortness of breath, denies coughing up blood Gastrointestinal as per HPI Neurological denies seizures, denies history of stroke Genitourinary denies blood in urine Hematological denies spontaneous/prolonged bleeding Skin denies open non healing wounds, did have wound infection with one of her csections, admits to TOB use Musculoskeletal denies history of fractures - except for finger fracture Endocrine denies diabetes Psychological denies hallucinations Physical examination: Vital signs Temp 98.7F HR 75 BP 120/75 General WD/WN WF in no apparent distress, alert and oriented, not septic appearing HEENT Normocephalic. EOM intact with sclera clear and no icterus noted. Neck is supple with no jugular venous distention noted. Trachea is midline. Lungs clear to auscultation. normal breath sounds. No rales/rhonchi/wheezing noted. No labored breathing noted, such as retractions. No cough heard. Heart normal S1 and S2 auscultated. No rubs/clicks/murmurs noted. Abdomen soft but tender in the right upper quadrant with positive Gacria's sign. Normal bowel sounds Extremities no calf tenderness noted. No pitting edema noted. Genitourinary/Rectal deferred Skin normal skin integrity. Neurological gait normal, no focal deficits Psychological normal affect, patient is calm and appropriate Impression: cholelithiasis, acute cholecystitis/biliary colic Discussion/Plan: I have discussed the above with the patient and her mother who is present with her. I have offered the patient the procedure of laparoscopic cholecystectomy possible cholangiograms I have explained the procedure to the patient. I have counseled the patient as to the risks of the procedure, including but not limited to: infection, bleeding, injury to any blood vessels/nerves, scar tissue, injury to any intraabdominal organs, injury to kidney/ureters, injury to bowel/bladder, injury to the common bile duct/biliary tree, bile leakage, intraabdominal abscess/bleeding, hernias at incisional sites, wound infections, possible open procedure, complications of anesthesia, postoperative pneumonia/cardiac problems/blood clots etc. the patient understands. Possible need for ERCP also discussed She wishes to proceed I have answered all questions to the patient s satisfaction and the patient has no further questions. 03/09/18 1444 <Electronically signed by Christine Coombs MD> Date Christine Coombs MD Cosigner Signature: Date (if applicable) CC: Gonzales Goddard MD; Christine Coombs MD Signed CHOLANGIOGRAM/ O Observed: 03/09/2018 Status: F Source: [place] R,INITIAL 9:46 AM [facility] REPOSITORY [facility] Imaging Services [address] [place] [address] Cholangiogram/ O R,Initial MR#: [id number] Acct: [id number] Name: ROWENA JAQUEZ Rep #: [id number] : 1990 F 27 From: Segundo Javier MD PCP: Gonzales Goddard MD Status: ADM NI Study: Cholangiogram/ O R,Initial Date of Exam: 03/09/18 Exam# [id number] Ordering Dr: Christine Coombs MD PROCEDURE: INTRAOPERATIVE CHOLANGIOGRAM. REASON FOR EXAM: Female, 27 years old. Cholelithiasis, cholecystitis. RADIATION DOSAGE (If Supplied By Facility): ( 1.03 ) mGy FLUOROSCOPY TIME (if supplied): (5.1) seconds TECHNIQUE: Real-time fluoroscopy was provided during intraoperative contrast infusion via the cystic duct. A single intraoperative spot view is submitted COMPARISON: Gallbladder ultrasound March 09, 2018; CT abdomen and pelvis July 29, 2016.. FINDINGS: Normal caliber intra-and extrahepatic bile ducts. There is tapering of the distal common bile duct, but no filling defects or strictures seen. Contrast flows to the duodenum. RAD/Cholangiogram/ O R,Initial IMPRESSION: Normal intraoperative cholangiogram. Electronically Signed: Nilay Javier MD at 8:06 EST , Service support , CC: Gonzales Goddard MD; Christine Coombs MD Transit Police Officer: Signed URINALYSIS, COMPLETE Collected: 03/09/2018 Status: F Source: [place] 9:11 AM [facility] REPOSITORY Order Comment: How was Urine Obtained? CLEAN CATCH TYPE CODE TESTS RESULT OUT OF RANGE REFERENCE UNITS LAB L400.3000 Yellow COLOR Normal Yellow LAB L400.3050 Clear Normal CLARITY Sl. Cloudy LAB L400.3200 Normal mg/dl Normal GLUCOSE, UR Normal LAB L400.3300 Negative mg/dL Normal BILIRUBIN URINE Negative LAB L400.3400 Negative mg/dl Normal KETONE UR Negative LAB L400.3465 1.002-1.030 Normal SP.GR. DIPSTX 1.020 LAB L400.3550 5.0 - 8.0 pH UR Normal 6.0 LAB L400.3600 Negative mg/dl PROT Normal DIPSTX Negative LAB L400.3700 Normal mg/dl Normal UROBILI Normal LAB L400.3750 Negative Normal NITRITE UR Negative LAB L400.3780 Negative /ul High 10 OCCULT BLOOD-UR LAB L400.3800 Negative /ul LEUK Normal ESTERASE Negative LAB L400.4050 0-5 /hpf WBC 0 Normal SEEN LAB L400.4100 0-5 /hpf Normal RBC-UA 0-5 SEEN LAB L400.4150 5-10 /hpf SQUAM Normal EPI 0-5 SEEN LAB L400.4300 None Seen /hpf 0 Normal BACTERIA SEEN LAB L400.4350 <or=2+ /hpf 0 Normal MUCUS, URINE SEEN Performed By: #### L400.0001 #### [facility] [address] [place], [address] GALLBLADDER Observed: 03/09/2018 Status: F Source: [place] 7:23 AM [facility] REPOSITORY [facility] Imaging Services [address] [place] [address] Gallbladder MR#: [id number] Acct: [id number] Name: ROWENA JAQUEZ Rep #: [id number] : 1990 F 27 From: Memo Carroll MD PCP: Gonzales Goddard MD Status: REG ER Study: Gallbladder Date of Exam: 03/09/18 Exam# [id number] Ordering Dr: Salvatore Mcgill MD STUDY: ABDOMINAL ULTRASOUND - RIGHT UPPER QUADRANT REASON FOR VISIT: Female, 27 years old. 2 day history of abdominal pain. TECHNIQUE: Ultrasound evaluation of the right upper quadrant was performed with real-time and static henley-scale imaging. TECHNICAL QUALITY: Adequate. COMPARISON: None. FINDINGS: Liver: The liver measures 16.9 cm. There is normal echogenicity of the liver. The bile ducts are within normal limits. There is hepatic color flow. The direction of portal flow is hepatopetal. There is no demonstrated mass lesion. Gallbladder: Normal distended gallbladder. The gallbladder wall measures 2.5 mm. There is a positive sonographic Garcia's sign. There is no pericholecystic fluid. There are multiple echogenic structures within the gallbladder, consistent with multiple gallstones. Common Bile Duct (C.B.D.): The common bile duct measures 3.6 mm. Pancreas: Normal size of the head, body and tail of the pancreas. There is normal echogenicity of the pancreas. There is no demonstrated pancreatic mass or cyst. Right Kidney: Normal size of the right kidney. The right kidney measures 10.8 cm x 5.5 cm x 3.7 cm. Normal renal cortex. The right cortex measures 1.4 cm. There is no demonstrated renal mass or cyst. There is no right hydronephrosis. US/Gallbladder IMPRESSION: Multiple gallstones. Positive sonographic Garcia's sign. Electronically Signed: Memo Carroll MD at 8:51 EST Tel [phone], Service support , CC: Gonzales Goddard MD; Salvatore Mcgill MD Transit Police Officer: Signed CBC W/DIFF, AUTOMATED Collected: 03/09/2018 Status: F Source: [place] 7:04 AM [facility] REPOSITORY TYPE CODE TESTS RESULT OUT OF RANGE REFERENCE UNITS LAB L100.1000 4.4-11.0 K/mm3 Normal WBC 7.3 LAB L100.1200 4.2-5.4 M/mm3 Low RBC 4.02 LAB L100.1300 12.0-15.0 g/dl Low HGB 10.8 LAB L100.1400 37-47 % Low HCT 34.1 LAB L100.1500 81-99 fL Normal MCV 84.8 LAB L100.1600 27.0-32.0 pg Low MCH 26.9 LAB L100.1700 32-36 g/gl Low MCHC 31.7 LAB L100.1810 11.6-14.6 % Normal RDW CV 13.1 LAB L100.1820 35.1-43.9 fl Normal RDW SD 40.0 LAB L100.1900 150-450 K/mm3 Normal PLT 326 LAB L100.2000 6.2-12.0 fl Normal MPV 9.6 LAB L100.2100 47-70 % Low NEUT% 43.1 LAB L100.2200 19-41 % High LY% 44.4 LAB L100.2300 0-10 % High MONO% 10.3 LAB L100.2400 0-5 % Normal EO% 1.8 LAB L100.2500 0-1 % Normal BASO% 0.3 LAB L100.2550 0.0-0.9 % Normal IM GRAN % 0.100 Result Comment: IG% - Immature Granulocytes (promyelocytes, myelocytes and metamyelocytes) > 1% indicates that a LEFT SHIFT is Present. LAB L100.2620 2.0-7.7 X10 3/uL Normal Absolute Neut 3.1 LAB L100.2720 0.83-4.51 X10 3/ul Normal Absolute Lymph 3.22 Performed By: #### L100.0100 #### [facility] [address] [place], [address] COMPREHENSIVE METABOLIC Collected: 03/09/2018 Status: F Source: [facility] 7:04 AM [facility] REPOSITORY TYPE CODE TESTS RESULT OUT OF RANGE REFERENCE UNITS LAB L501.0100 74-106 mg/dL Normal GLU 88 Result Comment: Please note revised GLUCOSE reference range effective 2017. LAB L501.1000 7-18 mg/dL Normal BUN 15 LAB L501.1100 0.55-1.02 mg/dL Normal CREAT,SERUM 0.69 Result Comment: The validity of the calculated GFR AND GFRAA in patients over 70 years has not been determined. Clinical correlation is essential. LAB L501.1110 >60 mL/min Normal EST GFR 106 Result Comment: Non- GFR Calc LAB L501.1115 >60 mL/min Normal EST GFR - AA 129 Result Comment: GFR Calc LAB L501.1255 ml/min Normal Estimated CRCL 103.88 LAB L501.1300 10-20 RATIO High BUN/CRE 21.7 LAB L501.1500 6.4-8. g/dL 2 T PROT Normal 7.3 LAB L501.1800 3.2-5. g/dL 0 ALB Normal 3.6 LAB L501.1950 2.2-4. g/dL 2 GLOB Normal 3.7 LAB L501.2000 0.9-2. RATIO 4 A/G Normal 1.0 LAB L501.2200 8.5-10 mg/dL Low .1 CA 7.8 LAB L501.4100 15-37 U/L AST Normal 16 LAB L501.4305 45-117 U/L ALK P Normal 61 LAB L501.4405 13-56 U/L ALT Normal 20 LAB L501.4600 0.20-1 mg/dL .00 T BILI Normal 0.20 LAB L501.5300 136-14 mmol/L 5 NA Normal 141 LAB L501.5600 3.5-5. mmol/L 1 K Normal 3.6 LAB L501.5900 98-107 mmol/L High CL 111 LAB L501.6100 21.0-3 mmol/L 2.0 CO2 Normal 22.0 LAB L501.6200 5-15 GAP Normal 8 Performed By: #### L500.4050, L501.2450 #### [facility] [address] [place], [address] LIPASE Collected: 03/09/2018 Status: F Source: [facility] 7:04 AM [facility] REPOSITORY TYPE CODE TESTS RESULT OUT OF RANGE REFERENCE UNITS LAB L501.2450 73-393 U/L Normal LIPASE 189 Performed By: #### L500.4050, L501.2450 #### [facility] [address] [place], [address] ,SERUM,HCG QUALI. Collected: Status: F Source: VALATIE 03/09/2018 7:04 AM [facility] REPOSITORY TYPE CODE TESTS RESULT OUT OF REFERENCE UNITS RANGE LAB L700.7000 0-9 Nonpreg Negative Normal HCGSQUAL NEGATIVE LAB L700.6700 =>Qualitative mIU/mL Normal HCG Qual < 1 triggr Performed By: #### L700.6800 #### [facility] [address] [place], [address] EMERGENCY DEPARTMENT Observed: 12/29/2017 Status: F Source: VALATIE SUMMARY 9:13 AM [facility] REPOSITORY [facility] Medical Records Department [address] [place] [address] Emergency Department Summary 12/29/17 0855 MR#: [id number] Acct: [id number] Name: ROWENA JAQUEZ Rep #: [id number] : 1990 27 From: Carl Martinez MD PCP: Gonzales Goddard MD Status: ADM IN - ER Visit Summary Date of Service: 12/29/17 Chief Complaint: Right wrist and hand pain with swelling History of Present Illness: The patient is a 27 F who is right- handed presents with right wrist and hand pain for approximate 1-2 weeks. She describes pain in the distribution of the median nerve. She states she awakes from night with a burning sensation in her index long and ring finger. There is improvement when she shakes her hand. She denies history of diabetes or hypothyroidism and has no symptoms of either. She works in the [employer] department at [employer]. She denies history of trauma. She denies fever, chills night sweats. Physical Examination: Vital signs noted and blood pressure is slightly elevated 121/71. BMI is 30.5. There is swelling of the right hand. Median, radial and ulnar function intact. Tinel's sign and Phalen's sign are both positive. Sensation subjectively is altered in the index, long and ring finger. Capillary refill is normal. Flexor mechanism and extensor mechanism of her fingers are intact. There is no evidence of trauma. There is no point tenderness over the distal radius ulna, carpal bones or metacarpal bones. Test Results: None Emergency Department Course and Treatment: Since patient reports hives and swelling with Naprosyn she was treated with prednisone and prefabricated cock-up splint. Treatment Plan: Follow-up with Disposition: Discharged to home with appropriate home-going instructions Impression: Carpal tunnel syndrome right initial encounter This note was generated with YumDots dictation software. It may contain incorrect words, spelling, and punctuation that were not noted in review of the chart prior to signing ED Disposition - Plan for ED Patient: Disposition: Home or Assisted Living Chief Complaint: Upper Extremity Injury Instructions: ED Carpal Tunnel Prescriptions: Prednisone [Deltasone] 40 mg PO DAILY #10 tablet Referrals: Gonzales Goddard MD [Primary Care Provider] - Nathalia Carson DO [STAFF PHYSICIAN] - 5-7 Days Additional Instructions: Wear splint today for comfort. After today wear splint at bedtime only. Take prednisone as instructed until gone. Your prescription was electronically transmitted to [facility] your preferred pharmacy. What to do if you have Problems For any increased pain, shortness of breath, bleeding, nausea or vomiting, chest pain, or any unexpected problems, contact your Primary Care Provider. Call [facility] ([phone]) or report to the closest Emergency Room. Call 911 if necessary. 12/29/17912 <Electronically signed by Carl Martinez MD> Date Carl Martinez MD Cosigner Signature (If Indicated): Date CC: Nathalia Carson DO; Gonzales Goddard MD PAP I-G W/RFX Collected: 11/24/2017 Status: F Source: SOFIA HRHPV-APTIMA 3:30 PM [facility] REPOSITORY Order Comment: CYTOLOGY INFORMATION: - CLINICAL INFORMATION: - DATE LMP/MENOPAUSE: 88 LMP - COLLECTION VIAL: Thin Prep Vial - TEACHER OF THE DEAF SOURCE: CERVICAL - COLLECTION TECHNIQUE: BRUSH ONLY Specimen Comment: [id number] Specimen Comment: Source.............Cervix Specimen Comment: LMP / Prev Treat...POR=[id number] Specimen Comment: No. of containers..01 ThinPrep Vial TYPE CODE TESTS RESULT OUT OF RANGE REFERENCE UNITS LAB L7400.0800 . Normal DIAGN Comment Result Comment: NEGATIVE FOR INTRAEPITHELIAL LESION AND MALIGNANCY. THIS SPECIMEN WAS RESCREENED PART OF OUR IT TEACHER PROGRAM. LAB L7400.0900 . Normal ADEQ Comment Result Comment: Satisfactory for evaluation. No endocervical component is identified. Areas of partially obscuring inflammtory exudate are present. LAB L7400.1400 . Normal PERFORM Comment Result Comment: Cynthia Hussein, Pre Press Proofer (ASCP) LAB L7400.1500 . Normal QC Comment REV Result Comment: Fadumo Cao, Supervisory Pre Press Proofer (ASCP) LAB L7400.2575 . Normal TEST METHOD Comment Result Comment: This liquid based ThinPrep(R) pap test was screened with the use of an image guided system. LAB L7400.2600 . Normal . COMM LAB L7400.2700 . Normal PAPSMR Comment Result Comment: The Pap smear is a screening test designed to aid in the detection of premalignant and malignant conditions of the uterine cervix. It is not a diagnostic procedure and should not be used as the sole means of detecting cervical cancer. Both false-positive and false-negative reports do occur. LAB L7400.2800 . Normal HPV RFLX Comment Result Comment: The HPV DNA reflex criteria were not met with this specimen result therefore, no HPV testing was performed. Performed at: [facility] [id number] Electrical Controls Designer: Radha Ray MD, Phone: [phone] Performed By: #### L7400.0353 #### [facility] (refer to report for specific site) refer to report for address and phone number [facility] VISIT Observed: 11/24/2017 Status: F Source: VALATIE REPORT 3:11 PM [facility] [address] [place] [address] OFFICE VISIT Date of Service: 11/24/17 MR#: [id number] Acct: [id number] Name: WYATTEDDIE GUILLENMatti Weeks Rep #: [id number] : 1990 Provider: Shanthi Felton MD Age/Sex: 27/F Location: [facility] Status: Signed Intake Vital Signs11/24/17 Height 5 ft 4 in 11/24/17 Weight: 176 lb 4 oz 11/24/17 Body Mass Index (BMI) 30.2 11/24/17 Blood Pressure 118/80 Intake Visit Reasons: 6w PP Sand Molder Required: No Is patient in pain?: No Allergies acetaminophen [From [place]] Allergy (Verified 11/24/17 14:42) Hives hydrocodone [From [place]] Allergy (Verified 11/24/17 14:42) Hives naproxen Allergy (Verified 11/24/17 14:42) Rash Penicillins Allergy (Verified 11/24/17 14:42) Hives Medications Ondansetron [Zofran Odt] 4 mg PO Q8H PRN PRN #10 tab 08/07/17 [Rx Confirmed 11/24/17] vit no.78-iron 18 mg-folic acid no.1 1 mg-dha 300 mg capsule 1 cap PO QHS 08/18/17 [History Confirmed 11/24/17] ferrous sulfate 325 mg (65 mg iron) tablet,delayed release 325 mg PO BID #60 tab 09/18/17 [Rx Confirmed 11/24/17] Oxycodone HCl/Acetaminophen [Percocet 5-325] 1 - 2 tab PO Q4H PRN PRN 7 Days #28 tab 10/14/17 [Rx Confirmed 11/24/17] nitrofurantoin monohydrate/macrocrystals 100 mg capsule 100 mg PO BID #14 cap 10/27/17 [Rx Confirmed 11/24/17] : No Nurse's Note: Pt. states she has a lot of discharge. Discharge has a little blood in it, but doesn't notice an odor or itching. Pt. also states she is depressed. She doesn't have custody of any of her children now. [facility] Medical History Depression (Acute) Surgical History delivery delivered (Acute) Family History Grandfather Diabetes Heart disease Social History Smoking Status: Current every day smoker alcohol intake: never substance use type: does not use caffeine: Yes what type of physical activity do you participate in: none seatbelt use: sometimes do you feel safe at home: Yes additional social history: Single Pregancy History 3 Elective abortions Hx Para 2 Spontaneous abortions Past Pregnancies Del. DatName GA/WeeksOutcome [facility] LocaProviderFOB e ht en th ia tn 04/17/15Rowyn live birC-sectio7 lbs 13Male spinal [facility] CHON th - fuln oz l term Delivery Date: 10/12/17 On 10/13/17 @ 11:24 Tram Hawley BTL Delivery Date: 07/12/16 No notes to display Delivery Date: 04/17/15 On 09/25/17 @ 11:24 Lashonda Paz Breech Depression Screen PHQ-2/9 PHQ-2 Over the last 2 weeks, how often have you been bothered by any of the following problems? 1. Little interest or pleasure in doing things: not at all 2. Feeling down, depressed, or hopeless: not at all Total score: 0 If score is 2 or greater, continue Source: Developed by Drs. Amaury Raza, Vandana Contreras, Toney Mcguire and colleagues, with an educational sebastian from [employer]. Scoring: Total Score Depression Severity Action 1-4 Minimal depression No action needed 5-9 Mild depression Repeat PHQ-9 at follow up 10-14 Moderate depression Make tx plan,consider counseling, fup, prescription Post HPI 6w PP: Details: ROWENA JAQUEZ is a 27 year old who presents for her post visit. Feeding: Bottle Menses resumed: No Marks since delivery: No Emotional Support: Yes ROS Const Reports system reviewed and no additional complaints, except as docu GI Reports system reviewed and no additional complaints, except as docu, Denies bloating, Denies nausea, Denies vomiting, Denies constipation Reports system reviewed and no additional complaints, except as docu, Denies abnormal vaginal bleeding, Denies pelvic pain, Denies sexual problems, Denies urinary urgency, Denies vaginal discharge, Denies urinary hesitancy, Denies urinary incontinence Skin/Breast Reports system reviewed and no additional complaints, except as docu, Reports as per HPI Psych Reports as per HPI Exam Const General: cooperative, healthy appearing, comfortable, no acute distress HENIA Head: normal to inspection Neck Neck: normal visual inspection, no lymphadenopathy Thyroid: thyroid normal Chest Breast inspection: normal inspection of the breasts, normal inspection of the axillae Breast palpation: normal palpation of the breasts, normal palpation of the axillae Resp Effort AND Inspection: normal respiratory effort GI Inspection: normal to inspection Palpation: soft, no hepatosplenomegaly, nontender Other: Incision: C/D/I General: bladder normal to palpation External Female Exam: normal external appearance, normal appearance of the urethra Urethra: normal appearance of the urethra Speculum Exam - Vagina: normal appearance of the vagina, normal vaginal discharge Speculum Exam - Cervix: normal appearance of the cervix Bimanual Exam- Vagina AND Uterus: bladder normal to palpation, normal bimanual exam, uterine shape normal, uterine size normal, uterus non-tender Bimanual Exam- Adnexa, other: normal adnexae, pelvic support normal Pelvic Support: normal Skin General: no rashes or lesions noted Assessment AND Plan Problems 1. care and examination Z39.2 Plan Cervical cancer screening: ordered Contraceptive plans: tubal Complications: none Follow up for annual exams or sooner if indicated. Orders Orders: Coding Level of Care Code Off vis,est,level 3 Diagnoses care and examination Z39.2 11/24/17 1511 <Electronically signed by Shanthi Felton MD> Date Shanthi Felton MD Cosigner Signature: Date (if applicable) CC: EMERGENCY DEPARTMENT Observed: 11/15/2017 Status: F Source: VALATIE SUMMARY 3:37 PM [facility] REPOSITORY [facility] Medical Records Department [address] [place] [address] Emergency Department Summary 11/15/17 1432 MR#: [id number] Acct: [id number] Name: ROWENA JAQUEZ Rep #: [id number] : 1990 27 From: Salvatore Mcgill MD PCP: Gonzales Goddard MD Status: DEP ER - ER Visit Summary Date of Service: 11/15/17 Chief Complaint: Dental pain History of Present Illness: The patient is a 27 F with dental pain which is increasing over the past 2 days. The patient had multiple molars extracted. She was prescribed [place], but this caused nausea, vomiting, and an itchy rash. She has tried naproxen today with no improvement. No fevers. No trouble breathing or swallowing. No wheezing or shortness of breath. No GI symptoms currently. No confusion. Physical Examination: Vitals unremarkable. Afebrile. No acute distress. Head and neck atraumatic. Dental expection shows multiple molars have been extracted. No significant swelling. No bleeding or discharge noted. Tenderness to palpation to the area, worse over the left mandibular molars. No trismus or tongue elevation. No lymphadenopathy. Good range of motion of her neck. No rash noted. Test Results: None indicated Emergency Department Course and Treatment: I checked her prescription report. She was prescribed 2 days of [place], 2 days ago. I will prescribe a short course of Percocet. She has tolerated this in the past. She will follow-up with her dentist tomorrow. There is no evidence of abscess, dry socket, bleeding, or any other complications. Treatment Plan: As above Disposition: Discharged Impression: 1. Dental pain This note was generated with [employer]um[employer] dictation software. It may contain incorrect words, spelling, and punctuation that were not noted in review of the chart prior to signing ED Disposition - Plan for ED Patient: Chief Complaint: Dental Referrals: Gonzales Goddard MD [Primary Care Provider] - What to do if you have Problems For any increased pain, shortness of breath, bleeding, nausea or vomiting, chest pain, or any unexpected problems, contact your Primary Care Provider. Call [facility] ([phone]) or report to the closest Emergency Room. Call 911 if necessary. 11/15/17 1537 <Electronically signed by Salvatore Mcgill MD> Date Salvatore Mcgill MD Cosigner Signature (If Indicated): Date CC: Gonzales Goddard MD DISCHARGE INSTRUCTION Observed: 11/15/2017 Status: F Source: SOFIA 3:37 PM [facility] REPOSITORY [facility] Medical Records Department [address] [place] [address] Discharge Instruction 11/15/17 1436 MR#: [id number] Acct: [id number] Name: ROWENA JAQUEZ Rep #: [id number] : 1990 27 From: Salvatore Mcgill MD PCP: Gonzales Goddard MD Status: DEP ER ED Disposition - Plan for ED Patient: Chief Complaint: Dental Instructions: ED Tooth Pain Prescriptions: Oxycodone HCl/Acetaminophen [Percocet 5/325] 1 tab PO Q6H PRN PRN 2 Days #8 tab PRN Reason: Pain Referrals: Gonzales Goddard MD [Primary Care Provider] - What to do if you have Problems For any increased pain, shortness of breath, bleeding, nausea or vomiting, chest pain, or any unexpected problems, contact your Primary Care Provider. Call [facility] ([phone]) or report to the closest Emergency Room. Call 911 if necessary. 11/15/17 1537 <Electronically signed by Salvatore Mcgill MD> Date Salvatore Mcgill MD Cosigner Signature (If Indicated): Date CC: Gonzales Goddard MD [facility] OFFICE VISIT Observed: 10/18/2017 Status: F Source: SOFIA REPORT 4:05 PM [facility] [address] [place] [address] OFFICE VISIT Date of Service: 10/18/17 MR#: [id number] Acct: [id number] Name: WYATTNICKOLASLUISROWENA M Rep #: [id number] : 1990 Provider: HEATHER Schroeder Age/Sex: 27/F Location: [facility] Status: Signed Intake Vital Signs10/18/17 Height 5 ft 4 in 10/18/17 Weight: 182 lb 2 oz 10/18/17 Body Mass Index (BMI) 31.2 Intake Visit Reasons: check rash Sand Molder Required: No Accompanied by: Grandmother Is patient in pain?: No Allergies naproxen Allergy (Verified 10/18/17 15:47) Rash Penicillins Allergy (Verified 10/18/17 15:47) Hives Medications Ondansetron [Zofran Odt] 4 mg PO Q8H PRN PRN #10 tab 08/07/17 [Rx Confirmed 10/18/17] vit no.78-iron 18 mg-folic acid no.1 1 mg-dha 300 mg capsule 1 cap PO QHS 08/18/17 [History Confirmed 10/18/17] ferrous sulfate 325 mg (65 mg iron) tablet,delayed release 325 mg PO BID #60 tab 09/18/17 [Rx Confirmed 10/18/17] Oxycodone HCl/Acetaminophen [Percocet 5-325] 1 - 2 tab PO Q4H PRN PRN 7 Days #28 tab 10/14/17 [Rx Confirmed 10/18/17] Is last menstrual period known: No Post menopausal: No Patient : No : No PFSH Medical History Depression (Acute) Surgical History delivery delivered (Acute) Family History Grandfather Diabetes Heart disease Social History Smoking Status: Former smoker alcohol intake: never substance use type: does not use caffeine: Yes what type of physical activity do you participate in: none seatbelt use: sometimes do you feel safe at home: Yes additional social history: Single HPI check rash: Details: ROWENA JAQUEZ is a 27 year old who presents for rash around bandage from c section on 10/12. Noted yesterday am and worsening. Pregancy History 3 Elective abortions Hx Para 3 Spontaneous abortions Past Pregnancies Del. DatName GA/WeeksOutcome [facility] LocaProviderFOB e ht en th ia tn 04/17/15Rowyn live birC-sectio7 lbs 13Male spinal [facility] th - fuln oz l term Delivery Date: 10/12/17 On 10/13/17 @ 11:24 Tram Hawley BTL Delivery Date: 07/12/16 No notes to display Delivery Date: 04/17/15 On 09/25/17 @ 11:24 Lashonda Paz Breech Exam GI Other: Raised petechial rash around edge of op site tape. Extends out from tape about 3cm. Erythematous. Surgical dressing removed. Incision healing well, well approximated, nonerythematous. Assessment AND Plan Problems 1. Allergic contact dermatitis due to adhesives L23.1 Plan Keep incision clean and dry Avoid lifting other then Call with any S AND S infection or incisional separation OTC hydrocortisone prn or benedryl RTO 6 week pp visit Coding Level of Care Code No Charge Diagnoses Allergic contact dermatitis due to adhesives L23.1 Contact dermatitis type: allergic Contact dermatitis trigger: adhesive 10/18/17 1605 <Electronically signed by Lyn OAKLEY> Date Lyn OAKLEY Cosigner Signature: Date (if applicable) CC: DISCHARGE SUMMARY Observed: 10/15/2017 Status: F Source: VALATIE 10:36 AM [facility] REPOSITORY [facility] Medical Records Department [address] [place] [address] Discharge Summary 10/15/17 1035 MR#: [id number] Acct: [id number] Name: ROWENA JAQUEZ Rep #: [id number] : 1990 27 From: Shanthi Felton MD PCP: Gonzales Goddard MD Status: ADM IN Location: [facility]-3 Discharge Date and Diagnosis Date of Admission: 07/31/16 Date of Discharge: 10/15/17 - Secondary Discharge Diagnosis Chronic Problems (Last Reviewed 10/10/17 @ 08:43 by Syl Lincoln) PCOS (polycystic ovarian syndrome) (Chronic) Depression (Chronic) Hospital Course and Treatment Operations: - - RLTCS BTL Summary of Care Provided: The patient is a 27 year old F patient underwent a section and had a routine recovery with a return of bowel and bladder function, was ambulating, voiding, and tolerating po, and was stable for discharge to home on POD 3. Discharge Diet: No Restrictions Discharge Activity: May Not Drive - for 2 weeks, May not drive while taking narcotic pain medications., May Shower, May Take a Tub Bath - in 7 days May resume sexual activity in: 4-6 weeks Additional Activity Instructions:: Nothing in the vagina for 4-6 weeks. You may return to work/school in 6 weeks. Call your doctor if your incision/area has: Continuous Slow Oozing, Sudden Increased Bleeding, Increased Pain/ Swelling, Increased Redness, Foul Smelling Discharge Call your doctor if you observe: Fever of 101 or Higher, Using more than one pad per hour - for 2 hours Suture Line Care: Avoid Pulling/Pushing, Avoid Pinching/Bending Cleanse incision/area with: Keep Dressing Clean AND Dry Home Medications: Medications to take at Discharge Ondansetron [Zofran Odt] 4 mg PO Q8H PRN PRN #10 tab 08/07/17 vit no.78-iron 18 mg-folic acid no.1 1 mg-dha 300 mg capsule 1 cap PO QHS 08/18/17 ferrous sulfate 325 mg (65 mg iron) tablet,delayed release 325 mg PO BID #60 tab 09/18/17 Oxycodone HCl/Acetaminophen [Percocet 5-325] 1 - 2 tablet PO Q4H PRN PRN 7 Days #28 tablet 10/14/17 Following Prescrptions Were Given to Patient: Oxycodone HCl/Acetaminophen [Percocet 5-325] 1 - 2 tablet PO Q4H PRN PRN 7 Days #28 tablet PRN Reason: Moderate-Severe pain Primary Care Physician: Gonzales Goddard MD [Primary Care Provider] - Please Follow Up With: Shanthi Felton MD - Call to make an appointment for an incision check in 1-2 [phone] When: You will need a post- check in 6 weeks. Medical Necessity - Tobacco Use Smoking Status: Former smoker Meaningful Use Info Meaningful Use Diagnoses (Choose all that apply): None applicable 10/15/17 1036 <Electronically signed by Shanthi Felton MD> Date Shanthi Felton MD Cosigner Signature (if applicable): Date CC: Gonzales Goddard MD; Shanthi Felton MD Signed DISCHARGE INSTRUCTION Observed: 10/14/2017 Status: F Source: VALATIE 3:14 AM [facility] REPOSITORY [facility] Medical Records Department [address] [place] [address] Instructions for Home/Discharge Instructions 10/14/17 0313 MR#: [id number] Acct: [id number] Name: ROWENA JAQUEZ Rep #: [id number] : 1990 27 From: Shanthi Felton MD PCP: Gonzales Goddard MD Status: ADM IN Discharge Diet: No Restrictions Discharge Activity: May Not Drive - for 2 weeks, May not drive while taking narcotic pain medications., May Shower, May Take a Tub Bath - in 7 days May resume sexual activity in: 4-6 weeks Lifting Restrictions: 20 pounds Additional Activity Instructions:: Nothing in the vagina for 4-6 weeks. You may return to work/school in 6 weeks. Call your doctor if your incision/area has: Continuous Slow Oozing, Sudden Increased Bleeding, Increased Pain/ Swelling, Increased Redness, Foul Smelling Discharge Call your doctor if you observe: Fever of 101 or Higher, Using more than one pad per hour - for 2 hours Suture Line Care: Avoid Pulling/Pushing, Avoid Pinching/Bending Cleanse incision/area with: Keep Dressing Clean AND Dry Additional Instructions: If you experience any of the following, contact your healthcare provider. * Bleeding that soaks a pad every hour for 2 hours * Fever 100.4 or higher * Unrelieved incision or abdominal pain * Swelling, redness, discharge or bleeding from your incision or episiotomy site * Your incision begins to separate * Problems urinating (including inability to urinate or burning while urinating). * Visual changes * Severe headache * Flu-like symptoms * Pain or redness in one of both of your breasts * Pain, warmth, tenderness or swelling in your legs, especially the calf area * Frequent nausea and vomiting * Symptoms of depression or anxiety If you experience any of the following, call 911 or go to the nearest Emergency Room. * Chest pain * Problems breathing * Seizure activity * Partial or complete paralysis of a body part, slurred speech, weakness or drooping of the face, or a sudden inability to walk or hold your balance Allergies/Adverse Reactions: Allergies naproxen Allergy (Verified 10/10/17 08:43) Rash Penicillins Allergy (Verified 10/10/17 08:43) Hives also has hematemesis Medications to take at Discharge Ondansetron [Zofran Odt] 4 mg PO Q8H PRN PRN #10 tab 08/07/17 vit no.78-iron 18 mg-folic acid no.1 1 mg-dha 300 mg capsule 1 cap PO QHS 08/18/17 ferrous sulfate 325 mg (65 mg iron) tablet,delayed release 325 mg PO BID #60 tab 09/18/17 Follow-Up: Call to make an appointment with your doctor for an incision check in 1-2 weeks. You will also need a 6 week post- follow up appointment. Test results from this visit will be discussed in further detail at your follow-up appointment, if applicable. Please Follow Up With: Shanthi Felton MD - Call to make an appointment for an incision check in 1-2 [phone] When: You will need a post- check in 6 weeks. Primary Care Physician: Gonzales Goddard MD [Primary Care Provider] - 10/14/17 0314 <Electronically signed by Shanthi Felton MD> Date Shanthi Felton MD CC: Gonzales Goddard MD CBC-COMPLETE BLOOD CNT Collected: 10/13/2017 Status: F Source: SOFIA NO DIFF 4:45 AM [facility] REPOSITORY Order Comment: Comments: Day #1 Reason for Laboratory Test TYPE CODE TESTS RESULT OUT OF RANGE REFERENCE UNITS LAB L100.1000 4.4-11.0 K/mm3 Normal WBC 8.9 LAB L100.1200 4.2-5.4 M/mm3 Low RBC 3.20 LAB L100.1300 12.0-15.0 g/dl Low HGB 8.0 LAB L100.1400 37-47 % Low HCT 25.9 LAB L100.1500 81-99 fL Low MCV 80.9 LAB L100.1600 27.0-32.0 pg Low MCH 25.0 LAB L100.1700 32-36 g/gl Low MCHC 30.9 LAB L100.1810 11.6-14.6 % High RDW CV 14.7 LAB L100.1820 35.1-43.9 fl Normal RDW SD 43.2 LAB L100.1900 150-450 K/mm3 Normal PLT 223 LAB L100.2000 6.2-12.0 fl Normal MPV 9.3 Performed By: #### L100.0500 #### [facility] [address] [place], [address] OPERATIVE REPORT Observed: 2017 Status: F Source: VALATIE 2:14 PM [facility] REPOSITORY [facility] Medical Records Department [address] [place] [address] Operative Report 10/12/17 1409 MR#: [id number] Acct: [id number] Name: ROWENA JAQUEZ Rep #: [id number] : 1990 27 From: Shanthi Felton MD PCP: Gonzales Goddard MD Status: ADM IN Y Location: [place] [address] Problem List (1) Previous section Status: Acute Comment: plans RLTCS/BTO. history of postop wound cellulitis; title 19 signed Report of Operation Date of Procedure: 10/12/17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 negative status during in third trimester O09.893 Trimester: third trimester Urinary tract infection in mother during third trimester of O23.43 Trimester: third trimester History of delivery Z98.891 PCOS (polycystic ovarian syndrome) E28.2 Depression, unspecified depression type F32.9 Depression Type: unspecified 08/29/17 1554 <Electronically signed by Shanthi Felton MD> Date Shanthi Felton MD Cosigner Signature: Date (if applicable) CC: CHRISTIE Observed: 08/27/2017 Status: COMPLETED Source: [place] 10:00 AM [facility] REPOSITORY Office Visit (WSTR) ROWENA JAQUEZ ([id number]) 1990 F Date Time Provider Department 08/27/17 10:00 AM MERLE MOULTON (MARILYNN) [facility] During your visit today, we recorded the following information about you: Temperature Pulse Respiration Blood pressure 97.8 degrees 92/minute 18/minute 100/60 Weight 86.2 kg Merle Moulton APRN.CNP 08/27/2017 10:24 AM Signed Subjective HPI HPI Rowena Jaquez is a 26 year old female who presents today for CC of jaw/tooth pain. This started 2 weeks ago. Has tried tylenol and ibuprofen. Symptoms are worsened by nothing. Risk factors recent chip tooth, hx of dental infection. Patient 32 weeks . .No chief complaint on file. 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 ferrous sulfate (IRON ORAL) Take by mouth. vit/iron fum/folic ac ( VITAMIN ORAL) Take by mouth. POTASSIUM ORAL Take by mouth. FAMILY HISTORY Problem Relation Age of Onset - Seizures Father - Arthritis Maternal Grandmother - Thyroid Maternal Grandmother - Diabetes Maternal Grandfather - Heart Maternal Grandfather Social History Substance Use Topics - Smoking status: Former Smoker Years: 4.00 Quit date: 05/2014 - Smokeless tobacco: Never Used Comment: vaps while at work - Alcohol use Yes Comment: occasionally, but not while Review of Systems Constitutional: Negative for chills and fever. Skin: Negative for itching and rash. Objective Blood pressure 100/60, pulse 92, temperature 36.6 ?C (97.8 ?F), temperature source Left Tympanic, resp. rate 18, weight 86.2 kg (190 lb), not currently . Physical Exam Constitutional: She is oriented to person, place, and time. Non-toxic appearance. She does not have a sickly appearance. She appears distressed (mild d/t pain). HENT: Head: Normocephalic and atraumatic. Right Ear: Hearing, tympanic membrane, external ear and ear canal normal. Left Ear: Hearing, tympanic membrane, external ear and ear canal normal. Nose: Nose normal. Mouth/Throat: Uvula is midline, oropharynx is clear and moist and mucous membranes are normal. She does not have dentures. No oral lesions. No trismus in the jaw. Abnormal dentition. Dental caries present. No dental abscesses, uvula swelling or lacerations. Eyes: Conjunctivae and lids are normal. Pupils are equal, round, and reactive to light. Right eye exhibits no discharge. Left eye exhibits no discharge. No scleral icterus. Neck: Trachea normal and normal range of motion. Neck supple. Cardiovascular: Normal rate, regular rhythm and normal heart sounds. Pulmonary/Chest: Effort normal and breath sounds normal. Lymphadenopathy: She has no cervical adenopathy. Neurological: She is alert and oriented to person, place, and time. Skin: No rash noted. She is not diaphoretic. ASSESSMENT/PLAN: 1. 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 Patient advised if symptoms do not improve or if symptoms worsen sooner, to contact the office for further evaluation by their primary care physician. Potential red flag symptoms discussed with the patient. Reviewed appropriate action plan to take if red flag symptoms occur. Patient agreeable to treatment plan. ANUJA Maria APRN.CNP 08/27/2017 10:15 AM Signed ASSESSMENT/PLAN: 1. Tooth infection - ICD9: 522.4, ICD10: K04.7 -take medication as prescribed -make dentist appointment this week -follow up if symptoms worsening or not improving - CEPHALEXIN 500 MG CAPSULE - ACETAMINOPHEN 500 MG TABLET Referring Provider: SELF [200] Allergies As of Date: 08/27/2017 Noted Allergy Reaction NAPROXEN 03/24/2015 2 - Rash PENICILLINS 08/29/2014 4 - Hives Date Reviewed: 08/27/2017 Reviewed by: Merle (Nicolette Moulton - Fully Assessed Primary Visit Diagnosis:Tooth infection [K04.7] Order(s):cephALEXin (KEFLEX) 500 mg capsuleTake 1 capsule by mouth three times daily for 10 days.Disp: 30 capsuleRfl: 0 acetaminophen (TYLENOL EXTRA STRENGTH) 500 mg tabletTake 2 tablets by mouth every 8 hours as needed for Pain.Disp: 15 tabletRfl: 0 Prescriptions as of 08/27/2017 Sig: ZOFRAN ORAL Take by mouth. IRON ORAL Take by mouth. VITAMIN ORAL Take by mouth. POTASSIUM ORAL Take by mouth. CEPHALEXIN 500 MG CAPSULE Take 1 capsule by mouth three* ACETAMINOPHEN 500 MG TABLET Take 2 tablets by mouth every* More... Problem List As Of Date 08/27/2017 Noted Resolved Rh negative state in antepartum period [O09.899]INVALID FOR*08/25/2016 More... Post depression [F53] INVALID FOR*03/11/2016 Short interval between pregnancies affecting pr*INVALID FOR*08/25/2016 More... with care elsewhere, antepar*INVALID FOR*08/25/2016 More... History of seizure [Z87.898] INVALID FOR*08/25/2016 More... History of depression [Z87.59, Z86.5*INVALID FOR*08/25/2016 More... History of delivery [Z98.891] INVALID FOR*08/25/2016 More... PUPP (pruritic urticarial papules and plaques o*INVALID FOR*08/25/2016 Other instructions from your clinician: ASSESSMENT/PLAN: 1. Tooth infection - ICD9: 522.4, ICD10: K04.7 -take medication as prescribed -make dentist appointment this week -follow up if symptoms worsening or not improving - CEPHALEXIN 500 MG CAPSULE - ACETAMINOPHEN 500 MG TABLET Prescriptions ordered this encounter Disp Refills Start End CEPHALEXIN 500 MG CAPSULE 30 c* 0 08/27/2017 09/06/2017 Route: ORAL Sig: Take 1 capsule by mouth three times daily for 10 days. ACETAMINOPHEN 500 MG TABLET 15 t* 0 08/27/2017 Route: ORAL Sig: Take 2 tablets by mouth every 8 hours as needed for Pain. Encounter Status:Closed by MERLE MOULTON CNP on 08/27/17 PROGRESS Observed: 08/27/2017 Status: COMPLETED Source: [place] 9:59 AM [facility] REPOSITORY HNO ID: [id number] Author: Merle Melendez) Service: (none) Author Type: Nurse Practitioner Type: Progress Notes Filed: 08/27/2017 10:24 AM Note Text: Subjective HPI HPI Rowena Jaquez is a 26 year old female who presents today for CC of jaw/tooth pain. This started 2 weeks ago. Has tried tylenol and ibuprofen. Symptoms are worsened by nothing. Risk factors recent chip tooth, hx of dental infection. Patient 32 weeks . .No chief complaint on file. 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 ferrous sulfate (IRON ORAL) Take by mouth. vit/iron fum/folic ac ( VITAMIN ORAL) Take by mouth. POTASSIUM ORAL Take by mouth. FAMILY HISTORY Problem Relation Age of Onset - Seizures Father - Arthritis Maternal Grandmother - Thyroid Maternal Grandmother - Diabetes Maternal Grandfather - Heart Maternal Grandfather Social History Substance Use Topics - Smoking status: Former Smoker Years: 4.00 Quit date: 05/2014 - Smokeless tobacco: Never Used Comment: vaps while at work - Alcohol use Yes Comment: occasionally, but not while Review of Systems Constitutional: Negative for chills and fever. Skin: Negative for itching and rash. Objective Blood pressure 100/60, pulse 92, temperature 36.6 ?C (97.8 ?F), temperature source Left Tympanic, resp. rate 18, weight 86.2 kg (190 lb), not currently . Physical Exam Constitutional: She is oriented to person, place, and time. Non-toxic appearance. She does not have a sickly appearance. She appears distressed (mild d/t pain). HENT: Head: Normocephalic and atraumatic. Right Ear: Hearing, tympanic membrane, external ear and ear canal normal. Left Ear: Hearing, tympanic membrane, external ear and ear canal normal. Nose: Nose normal. Mouth/Throat: Uvula is midline, oropharynx is clear and moist and mucous membranes are normal. She does not have dentures. No oral lesions. No trismus in the jaw. Abnormal dentition. Dental caries present. No dental abscesses, uvula swelling or lacerations. Eyes: Conjunctivae and lids are normal. Pupils are equal, round, and reactive to light. Right eye exhibits no discharge. Left eye exhibits no discharge. No scleral icterus. Neck: Trachea normal and normal range of motion. Neck supple. Cardiovascular: Normal rate, regular rhythm and normal heart sounds. Pulmonary/Chest: Effort normal and breath sounds normal. Lymphadenopathy: She has no cervical adenopathy. Neurological: She is alert and oriented to person, place, and time. Skin: No rash noted. She is not diaphoretic. ASSESSMENT/PLAN: 1. 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 Patient advised if symptoms do not improve or if symptoms worsen sooner, to contact the office for further evaluation by their primary care physician. Potential red flag symptoms discussed with the patient. Reviewed appropriate action plan to take if red flag symptoms occur. Patient agreeable to treatment plan. Merle Moulton APRN.DIELECTRIC MACHINE OPERATOR (ROM) RUPTURE OF Collected: 08/20/2017 Status: F Source: [facility]ATIE MEMBRANES 5:00 PM [facility] REPOSITORY TYPE CODE TESTS RESULT OUT OF RANGE REFERENCE UNITS LAB L205.1310 Negative Normal ROM Negative Result Comment: Amniotic fluid not present indicates No Rupture of Membranes at time of specimen collection. Performed By: #### L205.1000 #### [facility] [address] [place], [address] DISCHARGE INSTRUCTION Observed: 08/18/2017 Status: F Source: [place]ATIE 8:33 PM [facility] REPOSITORY [facility] Medical Records Department [address] [place] [address] Discharge Instruction 08/18/172031 MR#: [id number] Acct: [id number] Name: ROWENA JAQUEZ Rep #: [id number] : 1990 26 From: Tomás Castle DO PCP: Gonzales Goddard MD Status: REG ER ED Disposition - Plan for ED Patient: Chief Complaint: Headache Instructions: ED Contusion Face Referrals: Gonzales Goddard MD [Primary Care Provider] - [facility] [GROUP OF PHYSICIANS] - 3-5 Days What to do if you have Problems For any increased pain, shortness of breath, bleeding, nausea or vomiting, chest pain, or any unexpected problems, contact your Primary Care Provider. Call [facility] ([phone]) or report to the closest Emergency Room. Call 911 if necessary. 08/18/172032 <Electronically signed by Tomás Castle DO> Date Tomás Castle DO Cosigner Signature (If Indicated): Date CC: Gonzales Goddard MD EMERGENCY DEPARTMENT Observed: 08/18/2017 Status: F Source: VALATIE SUMMARY 8:32 PM [facility] REPOSITORY [facility] Medical Records Department [address] [place] [address] Emergency Department Summary 08/18/172028 MR#: [id number] Acct: [id number] Name: ROWENA JAQUEZ Rep #: [id number] : 1990 26 From: Tomás Castle DO PCP: Gonzales Goddard MD Status: REG ER - ER Visit Summary Date of Service: 08/18/17 Chief Complaint: [Facial injury] History of Present Illness: The patient is a 26 F [presents to the emergency department with complaint of facial pain after sustaining an injury to the right side of her face 2 days ago. 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 Patient then attempted to punch the dispenser loose and the dispenser came up and struck her in the right side of the face. No loss of consciousness. Patient has been taking ibuprofen and Tylenol but complains of headache and right-sided facial pain. Patient complains of pain when chewing. Patient did vomit once yesterday but she is 31 weeks and is not sure if this was related to head injury versus just her nausea and vomiting. Patient states that the injury happened while at work.] Physical Examination: [HEENT-PERRLA, EOMI. Cranial nerves II through XII grossly intact. TMs clear. Mucous membranes moist. No adenopathy. Patient has some mild ecchymosis noted to the right lateral orbit. She has some soft tissue swelling over the right zygomatic arch. No bony step-offs or depressions noted. Extraocular muscle movement is normal. No evidence of entrapment. Cardiovascular-regular rate and rhythm without murmur or ectopy Lungs-clear to auscultation, chest wall stable without crepitus or subcu emphysema Abdomen-normoactive bowel sounds, soft, nontender, no rebound or rigidity, no peritoneal signs. Extremities-intact 4, normal range of motion, normal pulses, atraumatic] Test Results: [CT of the facial bones was negative for fractures] Emergency Department Course and Treatment: [Patient advised use Tylenol for discomfort] Treatment Plan: [Tylenol and follow-up with corporate care] Disposition: [Discharged home in stable condition] Impression: [Facial contusion] This note was generated with [employer] dictation software. It may contain incorrect words, spelling, and punctuation that were not noted in review of the chart prior to signing ED Disposition - Plan for ED Patient: Chief Complaint: Headache Referrals: Gonzales Goddard MD [Primary Care Provider] - What to do if you have Problems For any increased pain, shortness of breath, bleeding, nausea or vomiting, chest pain, or any unexpected problems, contact your Primary Care Provider. Call [facility] ([phone]) or report to the closest Emergency Room. Call 911 if necessary. 08/18/172031 <Electronically signed by Tomás Castle DO> Date Tomás Castle DO Cosigner Signature (If Indicated): Date CC: Gonzales Goddard MD SINUS/FACIAL BONE Observed: 08/18/2017 Status: F Source: [place] 7:59 PM [facility] REPOSITORY [facility] Imaging Services [address] [place] [address] Sinus/Facial Bone MR#: [id number] Acct: [id number] Name: ROWENA JAQUEZ Rep #: [id number] : 1990 F 26 From: Devendra Salazar MD PCP: Gonzales Goddard MD Status: REG ER Study: Sinus/Facial Bone Date of Exam: 08/18/17 Exam# [id number] Ordering Dr: Tomás Castle DO STUDY: CT FACIAL BONES WITHOUT CONTRAST REASON FOR EXAM: Female, 26 years old. Right facial injury RADIATION DOSAGE (If Supplied By Facility): CTDIvol = ( 29.38 ) mGy, DLP = ( 510.73 ) mGycm TECHNIQUE: The patient was scanned in a multi detector CT scanner. Sagittal and coronal images were reconstructed. Individualized dose optimization techniques were used for this CT. COMPARISON: None. FINDINGS: Normal soft tissue structures. Normal orbital ire[place] and orbital contents. Normal nasal bones and anterior nasal spine. Normal facial bones. There is no demonstrated fracture. Normal visualized paranasal sinuses. CT/Sinus/Facial Bone IMPRESSION: Normal unenhanced CT of the facial bones. Electronically Signed: Devendra Salazar MD at 20:24 EDT , Service support , CC: Gonzales Goddard MD; Tomás Castle DO Transit Police Officer: Signed [facility] OFFICE VISIT Observed: 08/15/2017 Status: F Source: [place] REPORT 3:46 PM [facility] REPOSITORY [facility] 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 Is patient in pain?: No Allergies naproxen Allergy (Verified 08/15/17 15:13) Rash Penicillins Allergy (Verified 08/15/17 15:13) Hives Medications ondansetron HCl 4 mg tablet 4 mg PO Q4H #60 tab 06/21/17 [Rx Confirmed 08/15/17] vit no.78-iron 18 mg-folic acid no.1 1 mg-dha 300 mg capsule 1 cap PO QDAY #90 cap 06/21/17 [Rx Confirmed 08/15/17] Potassium Chloride [K-Dur] 20 meq PO BID #10 tab 08/02/17 [Rx Confirmed 08/15/17] ferrous sulfate 325 mg (65 mg iron) tablet,delayed release 325 mg PO QDAY #90 tab 08/02/17 [Rx Confirmed 08/15/17] Ondansetron [Zofran Odt] 4 mg PO Q8H PRN PRN #10 tab 08/07/17 [Rx Confirmed 08/15/17] Last Menstral Period: 01/24/18 Zika: Zika virus screening: Negative [facility] Medical History Depression (Acute) Surgical History delivery delivered (Acute) Family History Grandfather Diabetes Heart disease Social History Smoking Status: Former smoker alcohol intake: never substance use type: does not use caffeine: Yes what type of physical activity do you participate in: none seatbelt use: sometimes do you feel safe at home: Yes additional social history: [employer] [place] Pregancy History 3 Elective abortions Hx Para 2 Spontaneous abortions Past Pregnancies Del. DateName GA/Weeks Outcome Route Bth WeighInfant GeLabor LgtAnesthesiDel LocatProvider FOB t n h a n HPI 30 weeks: Details: ROWENA JAQUEZ is a 26 year old who presents for routine OB visit. OB Visit RUY Calculator Estimated Delivery Date 10/19/17 Based on Ultrasound Date 02/15/17 Current WG 30w 5d Number 1 Expected Delivery Route/Plan RLTCS BTO Specific Issue/Plans flu vaccine declined minichart given: [] tdap vaccine: [] rhogam: [] LARC form signed: [] labor support person: [place] pain management: repeat c section cut cord/dad catch: [] : no PP control planned: [] special requests: [] Initial Weight: Not Recorded Date Weight BP Urine PrFHR FuHt Pres MoCTX DilationFetal StVisit NoProviderComments E ot v te GA G Effac lucose ed Visit Notes Visit Date: 08/15/17 no vb lof good fm no regular ctx Shanthi Felton MD on 08/15/17 Visit Date: 08/01/17 More pressure, pelvic discomfort. Cervix closed. CELE Cha on 08/01/17 Visit Date: 07/19/17 doing well. Denies VB, LOF. CELE Cha on 07/19/17 Visit Date: 06/21/17 doing well. Denies CTX, LOF, VB CELE Cha on 06/21/17 Visit Date: 05/08/17 no vb lof cramping having some dizziness Shanthi Felton MD on 05/08/17 ISAIAH Felton MD on 04/07/17 Visit Date: 04/07/17 ISAIAH Felton MD on 04/07/17 Visit Date: 04/07/17 No visit notes to display Visit Date: 03/10/17 No visit notes to display Visit Date: 02/15/17 No visit notes to display Diagnostics Diagnostics Labs Blood Type A NEGATIVE 07/21/17 Antibody Screen NEGATIVE 07/21/17 Hct 33.2 % (37-47) L 08/07/17 Hgb 10.7 g/dl (12.0-15.0) L 08/07/17 Obstetrics Ultrasound 07/24/17 Rubella IgG Antibody 101.8 IU/mL 06/19/17 Glucose 1 Hr 50 gm 86 mg/dL (70-140) 07/21/17 Details: HIV: Urine Culture: Sequential Screen: NIPT Screen: ROS Const Denies fever(s) GI Denies abdominal pain, Reports as per HPI Denies vaginal discharge, Denies abnormal vaginal bleeding, Reports as per HPI Exam Const General: healthy appearing, comfortable, no acute distress GI Inspection: normal to inspection Palpation: soft, nontender Assessment AND Plan Problems 1. Excessive growth affecting management of in third trimester, single or unspecified fetus O36.63X0 Growth US every 4 weeks 2. Rh negative status during in third trimester O09.893 rhogam PRN and at 28 weeks 3. History of delivery Z98.891 plans RLTCS/BTO. history of postop wound cellulitis; needs title 19 signed 4. Urinary tract infection in mother during third trimester of O23.43 06/21/17 REPEAT URINE CULTURE negative 5. Supervision of high risk , antepartum O09.90 PRR RUY: 10/19/17 per US. PC: Olive Toscano. BF: Suzanne. 6. Depression, unspecified depression type F32.9 7. Anemia during in second trimester O99.012 8. PCOS (polycystic ovarian syndrome) E28.2 Plan Orders placed: none movement and labor precautions reviewed. ACOG trimester education reviewed and updated. see problem list details for updated plan management information. GA appropriate handout given. Orders Orders: Coding Level of Care Code Off vis,est,level 3 Diagnoses Excessive growth affecting management of in third trimester, single or unspecified fetus O36.63X0 Fetus number: single or unspecified fetus Trimester: third trimester Rh negative status during in third trimester O09.893 Trimester: third trimester History of delivery Z98.891 Urinary tract infection in mother during third trimester of O23.43 Trimester: third trimester Supervision of high risk , antepartum O09.90 Depression, unspecified depression type F32.9 Depression Type: unspecified Anemia during in second trimester O99.012 Trimester: second trimester PCOS (polycystic ovarian syndrome) E28.2 08/15/17 1546 <Electronically signed by Shanthi Felton MD> Date Shanthi Felton MD Cosigner Signature: Date (if applicable) CC: PROGRESS Observed: 08/11/2017 Status: COMPLETED Source: [place] 12:00 PM [facility] REPOSITORY O ID: [id number] Author: Bijal (Blintze Roller) Ash Service: (none) Author Type: Nurse Practitioner Type: Progress Notes Filed: 08/11/2017 12:36 PM Note Text: Subjective HPI Rowena Jaquez is a 26 year old female who presents with right ear pain, and sore throat since yesterday, and cough for the past 2 days. She has not taken any medication for symptoms. She rates her right ear pain a 10/10. She could not sleep last night due to pain. She is currently 30 weeks . Review of Systems Constitutional: Negative. Negative for fever. HENT: Positive for congestion, ear pain (right), hearing loss and sore throat. Respiratory: Positive for cough and sputum production. Negative for shortness of breath. Cardiovascular: Negative. Negative for chest pain. Gastrointestinal: Positive for nausea and vomiting (2 days ago). Negative for abdominal pain and diarrhea. Skin: Negative. Negative for rash. BP 122/60 Pulse 76 Temp 36.8 ?C (98.3 ?F) (Tympanic) Resp 16 Wt 85.7 kg (189 lb) BMI 32.44 kg/m? 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 ferrous sulfate (IRON ORAL) Take by mouth. vit/iron fum/folic ac ( VITAMIN ORAL) Take by mouth. POTASSIUM ORAL Take by mouth. LORazepam (ATIVAN) 0.5 mg tab Take 1 tablet by mouth once daily as needed. escitalopram oxalate (LEXAPRO) 20 mg tablet Take 1 tablet by mouth once daily. Indications: GENERALIZED ANXIETY DISORDER norgestimate 0.25 mg-ethinyl estradiol 35 mcg (SPRINTEC) 0.25- 35 mg-mcg per tablet Take 1 tablet by mouth once daily. nitrofurantoin (MACRODANTIN) 100 mg capsule Take 100 mg by mouth four times daily. FAMILY HISTORY Problem Relation Age of Onset - Seizures Father - Arthritis Maternal Grandmother - Thyroid Maternal Grandmother - Diabetes Maternal Grandfather - Heart Maternal Grandfather Social History Substance Use Topics - Smoking status: Former Smoker Years: 4.00 Quit date: 05/2014 - Smokeless tobacco: Never Used Comment: vaps while at work - Alcohol use Yes Comment: occasionally, but not while Objective Physical Exam Constitutional: She is well-developed, well-nourished, and in no distress. HENT: Head: Normocephalic. Right Ear: Ear canal normal. There is tenderness. Tympanic membrane is injected and retracted. Left Ear: Tympanic membrane, external ear and ear canal normal. Nose: Nose normal. Mouth/Throat: Uvula is midline, oropharynx is clear and moist and mucous membranes are normal. No posterior oropharyngeal edema or posterior oropharyngeal erythema. Eyes: Conjunctivae are normal. Right eye exhibits no discharge. Left eye exhibits no discharge. Neck: Neck supple. Cardiovascular: Normal rate, regular rhythm and normal heart sounds. Pulmonary/Chest: Effort normal and breath sounds normal. No respiratory distress. She has no wheezes. She has no rales. Lymphadenopathy: She has cervical adenopathy (right). Skin: Skin is warm and dry. No rash noted. Nursing note and vitals reviewed. ASSESSMENT/PLAN: 1. Other acute nonsuppurative otitis media of right ear, recurrence not specified - ICD9: 381.00, ICD10: H65.191 - Will begin treatment with Cefdinir - Supportive care with plenty of fluids, rest, and analgesia prn. - CEFDINIR 300 MG CAPSULE - Follow-up with your PCP in 3-5 days if symptoms have not improved or sooner if symptoms worsen - Discussed red flags and need for immediate medical evaluation if any occur. - Discussed supportive care treatment with fluids, rest and analgesia. - Discussed expected course of illness Bijal Aleman APRN.CNP CNOV Observed: 08/11/2017 Status: COMPLETED Source: [place] 11:45 AM [facility] REPOSITORY Office Visit (WSTR) ROWENA JAQUEZ ([id number]) 1990 F Date Time Provider Department 08/11/17 11:45 AM BIJAL ALEMAN ([facility] During your visit today, we recorded the following information about you: Temperature Pulse Respiration Blood pressure 98.3 degrees 76/minute 16/minute 122/60 Weight 85.7 kg Bijal Aleman APRN.CNP 08/11/2017 12:36 PM Signed Subjective HPI Rowena Jaquez is a 26 year old female who presents with right ear pain, and sore throat since yesterday, and cough for the past 2 days. She has not taken any medication for symptoms. She rates her right ear pain a 10/10. She could not sleep last night due to pain. She is currently 30 weeks . Review of Systems Constitutional: Negative. Negative for fever. HENT: Positive for congestion, ear pain (right), hearing loss and sore throat. Respiratory: Positive for cough and sputum production. Negative for shortness of breath. Cardiovascular: Negative. Negative for chest pain. Gastrointestinal: Positive for nausea and vomiting (2 days ago). Negative for abdominal pain and diarrhea. Skin: Negative. Negative for rash. BP 122/60 Pulse 76 Temp 36.8 ?C (98.3 ?F) (Tympanic) Resp 16 Wt 85.7 kg (189 lb) BMI 32.44 kg/m? 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 ferrous sulfate (IRON ORAL) Take by mouth. vit/iron fum/folic ac ( VITAMIN ORAL) Take by mouth. POTASSIUM ORAL Take by mouth. LORazepam (ATIVAN) 0.5 mg tab Take 1 tablet by mouth once daily as needed. escitalopram oxalate (LEXAPRO) 20 mg tablet Take 1 tablet by mouth once daily. Indications: GENERALIZED ANXIETY DISORDER norgestimate 0.25 mg-ethinyl estradiol 35 mcg (SPRINTEC) 0.25- 35 mg-mcg per tablet Take 1 tablet by mouth once daily. nitrofurantoin (MACRODANTIN) 100 mg capsule Take 100 mg by mouth four times daily. FAMILY HISTORY Problem Relation Age of Onset - Seizures Father - Arthritis Maternal Grandmother - Thyroid Maternal Grandmother - Diabetes Maternal Grandfather - Heart Maternal Grandfather Social History Substance Use Topics - Smoking status: Former Smoker Years: 4.00 Quit date: 05/2014 - Smokeless tobacco: Never Used Comment: vaps while at work - Alcohol use Yes Comment: occasionally, but not while Objective Physical Exam Constitutional: She is well-developed, well-nourished, and in no distress. HENT: Head: Normocephalic. Right Ear: Ear canal normal. There is tenderness. Tympanic membrane is injected and retracted. Left Ear: Tympanic membrane, external ear and ear canal normal. Nose: Nose normal. Mouth/Throat: Uvula is midline, oropharynx is clear and moist and mucous membranes are normal. No posterior oropharyngeal edema or posterior oropharyngeal erythema. Eyes: Conjunctivae are normal. Right eye exhibits no discharge. Left eye exhibits no discharge. Neck: Neck supple. Cardiovascular: Normal rate, regular rhythm and normal heart sounds. Pulmonary/Chest: Effort normal and breath sounds normal. No respiratory distress. She has no wheezes. She has no rales. Lymphadenopathy: She has cervical adenopathy (right). Skin: Skin is warm and dry. No rash noted. Nursing note and vitals reviewed. ASSESSMENT/PLAN: 1. Other acute nonsuppurative otitis media of right ear, recurrence not specified - ICD9: 381.00, ICD10: H65.191 - Will begin treatment with Cefdinir - Supportive care with plenty of fluids, rest, and analgesia prn. - CEFDINIR 300 MG CAPSULE - Follow-up with your PCP in 3-5 days if symptoms have not improved or sooner if symptoms worsen - Discussed red flags and need for immediate medical evaluation if any occur. - Discussed supportive care treatment with fluids, rest and analgesia. - Discussed expected course of illness ANUJA Kerr APRN.CNP 08/11/2017 12:13 PM Signed Take medications as prescribed. If not improving in 3-5 days, or you have worsening symptoms, see your primary care provider for recheck. OTITIS MEDIA GENERAL INFORMATION: Otitis media is an infection of the middle ear. The middle ear sits behind the eardrum. This infection may be caused by a virus or bacteria and often follows a cold. Children often have repeat ear infections. Otitis media is not contagious. INSTRUCTIONS: 1. An antibiotic has been prescribed. It should be taken exactly as prescribed. Do not stop the medicine even if the symptoms go away. 2. Nvyz-rbm-usmhdnz pain medication may be taken or other pain medication as prescribed by the doctor. 3. Nothing should be placed in the ear unless instructed by your doctor. 4. The patient may return to school/daycare or work when the temperature is normal (98.6 F or 37 C). 5. The patient should not swim while the ear is infected. CONTACT YOUR DOCTOR IF YOU OR YOUR CHILD: 1. Does not feel better within 36 hours. 2. Develops a temperature over 102E F (39E C). 3. Starts vomiting or has diarrhea. 4. Develops drainage from the affected ear. 5. Has any new problem that may be related to the medicine prescribed. RETURN TO THE ED IF: 1. You or your child has a severe headache or pain around the ear. 2. You or your child notice swelling around the ear. 3. You or your child has a seizure (convulsion), twitching of the facial muscles, or passes out. 4. You or your child is dizzy, has a stiff neck, or cannot walk or talk normally. 5. Your child becomes more irritable or listless (not interested in his or her surroundings, does not get soothed by you holding him or her). Treatment for Viral Upper Respiratory Tract Infections Your body will kill off the virus by itself. Additionally, you can prime your body's immune system. This may help you get better more quickly. 1. Drink lots of fluids - at least one gallon of non-caffeinated liquids per day 2. Make sure you are eating well 3. Get plenty of rest - at least 8 hours of sleep per night for adults and more for children We do not have any medications that kill off these viruses. Antibiotics are used to treat bacterial infections; however, they are not active against viral infections. There are some things that might help you feel better, though. 1. Vaporizers, humidifiers, hot showers, and hot fluids help open respiratory and sinus passages 2. Meeker Nasal [place] may offer relief of nasal and head congestion 3. Maverikc's Vapor Rub placed on a hot towel and draped over the head may relieve congestion 4. Tylenol and Advil help control fevers and headaches 5. Salt water gargles help relieve sore throats 6. Chloraceptic spray or throat lozenges may also help relieve sore throat symptoms Occasionally, viral infections turn into something more serious. You should see your doctor or return to the Urgent Care if: 1. You have fevers for longer than five days 2. You have fevers above 102 degrees 3. You are still sick after 10 days 4. You have shortness of breath or wheezing 5. After several days you are getting worse rather than better Referring Provider: SELF [[id number]] Allergies As of Date: 08/11/2017 Noted Allergy Reaction NAPROXEN 03/24/2015 2 - Rash PENICILLINS 08/29/2014 4 - Hives Date Reviewed: 08/11/2017 Reviewed by: Bijal ([facility]) Ash - Fully Assessed Reason for Visit: Ear Pain [817] Cmt: right, head congestion, cough, sore throat x yesterday Reason For Visit History Recorded Primary Visit Diagnosis:Other acute nonsuppurative otitis media of right ear, recurrence not specified [H65.191] Order(s):cefdinir (OMNICEF) 300 mg capsuleTake 1 capsule by mouth twice daily for 10 days.Disp: 20 capsuleRfl: 0 Prescriptions as of 08/11/2017 Sig: ZOFRAN ORAL Take by mouth. IRON ORAL Take by mouth. VITAMIN ORAL Take by mouth. POTASSIUM ORAL Take by mouth. CEFDINIR 300 MG CAPSULE Take 1 capsule by mouth twice* More... Problem List As Of Date 08/11/2017 Noted Resolved Rh negative state in antepartum period [O09.899]INVALID FOR*08/25/2016 More... Post depression [F53] INVALID FOR*03/11/2016 Short interval between pregnancies affecting pr*INVALID FOR*08/25/2016 More... with care elsewhere, antepar*INVALID FOR*08/25/2016 More... History of seizure [Z87.898] INVALID FOR*08/25/2016 More... History of depression [Z87.59, Z86.5*INVALID FOR*08/25/2016 More... History of delivery [Z98.891] INVALID FOR*08/25/2016 More... PUPP (pruritic urticarial papules and plaques o*INVALID FOR*08/25/2016 Other instructions from your clinician: Take medications as prescribed. If not improving in 3- 5 days, or you have worsening symptoms, see your primary care provider for recheck. OTITIS MEDIA GENERAL INFORMATION: Otitis media is an infection of the middle ear. The middle ear sits behind the eardrum. This infection may be caused by a virus or bacteria and often follows a cold. Children often have repeat ear infections. Otitis media is not contagious. INSTRUCTIONS: 1. An antibiotic has been prescribed. It should be taken exactly as prescribed. Do not stop the medicine even if the symptoms go away. 2. Dcmz-qei-tzhtmnj pain medication may be taken or other pain medication as prescribed by the doctor. 3. Nothing should be placed in the ear unless instructed by your doctor. 4. The patient may return to school/daycare or work when the temperature is normal (98.6 F or 37 C). 5. The patient should not swim while the ear is infected. CONTACT YOUR DOCTOR IF YOU OR YOUR CHILD: 1. Does not feel better within 36 hours. 2. Develops a temperature over 102E F (39E C). 3. Starts vomiting or has diarrhea. 4. Develops drainage from the affected ear. 5. Has any new problem that may be related to the medicine prescribed. RETURN TO THE ED IF: 1. You or your child has a severe headache or pain around the ear. 2. You or your child notice swelling around the ear. 3. You or your child has a seizure (convulsion), twitching of the facial muscles, or passes out. 4. You or your child is dizzy, has a stiff neck, or cannot walk or talk normally. 5. Your child becomes more irritable or listless (not interested in his or her surroundings, does not get soothed by you holding him or her). Treatment for Viral Upper Respiratory Tract Infections Your body will kill off the virus by itself. Additionally, you can prime your body's immune system. This may help you get better more quickly. 1. Drink lots of fluids - at least one gallon of non-caffeinated liquids per day 2. Make sure you are eating well 3. Get plenty of rest - at least 8 hours of sleep per night for adults and more for children We do not have any medications that kill off these viruses. Antibiotics are used to treat bacterial infections; however, they are not active against viral infections. There are some things that might help you feel better, though. 1. Vaporizers, humidifiers, hot showers, and hot fluids help open respiratory and sinus passages 2. Meeker Nasal [place] may offer relief of nasal and head congestion 3. Maverick's Vapor Rub placed on a hot towel and draped over the head may relieve congestion 4. Tylenol and Advil help control fevers and headaches 5. Salt water gargles help relieve sore throats 6. Chloraceptic spray or throat lozenges may also help relieve sore throat symptoms Occasionally, viral infections turn into something more serious. You should see your doctor or return to the Urgent Care if: 1. You have fevers for longer than five days 2. You have fevers above 102 degrees 3. You are still sick after 10 days 4. You have shortness of breath or wheezing 5. After several days you are getting worse rather than better Prescriptions ordered this encounter Disp Refills Start End CEFDINIR 300 MG CAPSULE 20 c* 0 08/11/2017 08/21/2017 Route: ORAL Sig: Take 1 capsule by mouth twice daily for 10 days. Medications Discontinued During This Encounter nitrofurantoin (MACRODANTIN) 100 mg * 08/11/2017 Class: Historical Med Route: ORAL Sig: Take 100 mg by mouth four times daily. Disc: Reason for discontinue is not on file. escitalopram oxalate (LEXAPRO) 20 mg* 30 t* 5 12/20/2016 08/11/2017 Route: ORAL Sig: Take 1 tablet by mouth once daily. Indications: GENERALIZED ANXIETY DISORDER Patient not taking: Reported on 08/11/2017 Disc: Reason for discontinue is not on file. LORazepam (ATIVAN) 0.5 mg tab 25 t* 0 12/22/2016 08/11/2017 Class: Print RX Cmt: Patient requesting refill. Thank you Route: ORAL Sig: Take 1 tablet by mouth once daily as needed. Patient not taking: Reported on 08/11/2017 Disc: Reason for discontinue is not on file. norgestimate 0.25 mg-ethinyl estradi* 1 Pa* 12 10/28/2016 08/11/2017 Route: ORAL Sig: Take 1 tablet by mouth once daily. Patient not taking: Reported on 08/11/2017 Disc: Reason for discontinue is not on file. Encounter Status:Closed by BIJAL ALEMAN on 08/11/17 DOWNTIME REPORT Observed: 08/10/2017 Status: F Source: [place] 11:51 AM [facility] REPOSITORY [facility] Medical Records Department [address] [place] [address] Downtime Report MR#: [id number] Acct: [id number] Name: ROWENA JAQUEZ Rep #: [id number] : 1990 26 From: Vik Meyer PCP: Care Physician, No Primary Status: REG CLI This patient was seen during an EMR downtime July 24, 2017 - July 31, 2017. This patient may have a combination of paper and electronic documentation or all paper documentation. All documentation is viewable within the e-chart portion of [employer] for each patient visit. EMERGENCY DEPARTMENT Observed: 08/07/2017 Status: F Source: [place] SUMMARY 5:02 PM [facility] REPOSITORY [facility] Medical Records Department [address] [place] [address] Emergency Department Summary 08/07/17 0912 MR#: [id number] Acct: [id number] Name: ROWENA JAQUEZ Rep #: [id number] : 1990 26 From: Dion Spencer MD PCP: Care Physician, No Primary Status: DEP ER - ER Visit Summary Date of Service: 08/07/17 Chief Complaint: Vomiting and diarrhea History of Present Illness: The patient is a 26 F who with no primary care physician. She is a at 29 weeks and [address] Ever Hart. She reports that at 4:00 this morning she began having vomiting and diarrhea. She has had multiple episodes of each. No blood in either. No black tarry stools. She reports that she has abdominal pain that began after the vomiting. She describes as a crampy pain is 10 out of 10 severity. She denies any vaginal bleeding or discharge. She has had normal movement. No dysuria. Patient denies sick contacts. Has not been camping out of the country. No possible bad food exposure. Does not drink well water. No recent antibiotic use. Physical Examination: Vitals: Stable. Afebrile. General: Well-nourished and well-developed. Head: Normocephalic atraumatic. Neck: Supple, no lymphadenopathy. No JVD. Nontender. Cardiovascular: Regular rate and rhythm. No murmurs. Respiratory: No respiratory distress. Clear to auscultation bilaterally. Abdominal: Soft, mild diffuse tenderness to palpation, nondistended, normal bowel sounds. No guarding, rebound, or peritoneal signs. Gravid uterus. Back: Nontender. Extremities: Nontender, no edema. Skin: Normal color, no rash. Neurologic: Alert and oriented 3. Cranial nerves II through XII are intact. Normal strength and sensation. Psych: Normal affect. Test Results: CBC is marked for a white count of 12.0, H AND H of 10.7 33.2. Chem-7 is marked potassium 3.3, BUN/creatinine ratio of 11.6, calcium 8.7. Emergency Department Course and Treatment: Patient had an IV placed. She was given 2 L normal saline and Zofran IV. She is resting comfortably. She has had no vomiting or diarrhea while here. Treatment Plan: Patient reports that she already has K-Dur at home. She will be discharged with Zofran for her nausea. Instructed to follow-up Dr. Desmond Meyer, who is next pediatric oncology nurse for no doc, in 1-2 days if not improving. Follow-up Dr. Felton as scheduled. Return to the emergency department for any worsening symptoms. Disposition: To home in improved and stable condition. Impression: 1. Vomiting/diarrhea. 2. Third trimester . This note was generated with [employer] software. It may contain incorrect words, spelling, and punctuation that were not noted in review of the chart prior to signing ED Disposition - Plan for ED Patient: Chief Complaint: Nausea/Vomiting/Diarrhea Instructions: ED Vomiting Diarrhea Nonspecific Ad Prescriptions: Ondansetron [Zofran Odt] 4 mg PO Q8H PRN PRN #10 tablet PRN Reason: Nausea Referrals: Desmond Meyer MD [STAFF PHYSICIAN] - 1-2 Days if not improving What to do if you have Problems For any increased pain, shortness of breath, bleeding, nausea or vomiting, chest pain, or any unexpected problems, contact your Primary Care Provider. Call [facility] ([phone]) or report to the closest Emergency Room. Call 911 if necessary. 08/07/17 1702 <Electronically signed by Dion Spencer MD> Date Dion Spencer MD Cosigner Signature (If Indicated): Date CC: No Primary Care Physician CBC-COMPLETE BLOOD CNT Collected: 08/07/2017 Status: F Source: [place] NO DIFF 9:20 AM [facility] REPOSITORY TYPE CODE TESTS RESULT OUT OF RANGE REFERENCE UNITS LAB L100.1000 4.4-11.0 K/mm3 High WBC 12.0 LAB L100.1200 4.2-5.4 M/mm3 Low RBC 3.83 LAB L100.1300 12.0-15.0 g/dl Low HGB 10.7 LAB L100.1400 37-47 % Low HCT 33.2 LAB L100.1500 81-99 fL Normal MCV 86.7 LAB L100.1600 27.0-32.0 pg Normal MCH 27.9 LAB L100.1700 32-36 g/gl Normal MCHC 32.2 LAB L100.1810 11.6-14.6 % Normal RDW CV 13.1 LAB L100.1820 35.1-43.9 fl Normal RDW SD 42.0 LAB L100.1900 150-450 K/mm3 Normal PLT 289 LAB L100.2000 6.2-12.0 fl Normal MPV 9.0 Performed By: #### L100.0500 #### [facility] [address] [place], [address] BASIC METABOLIC Collected: 08/07/2017 Status: F Source: [place] PROFILE ([facility]) 9:20 AM [facility] REPOSITORY TYPE CODE TESTS RESULT OUT OF RANGE REFERENCE UNITS LAB L501.0100 74-106 mg/dL Normal GLU 82 Result Comment: Please note revised GLUCOSE reference range effective 2017. LAB L501.1000 7-18 mg/dL Normal BUN 7 LAB L501.1100 0.55-1.02 mg/dL Normal CREAT,SERUM 0.60 Result Comment: The validity of the calculated GFR AND GFRAA in patients over 70 years has not been determined. Clinical correlation is essential. LAB L501.1110 >60 mL/min Normal EST GFR 125 Result Comment: Non- GFR Calc LAB L501.1115 >60 mL/min Normal EST GFR - AA 151 Result Comment: GFR Calc LAB L501.1255 ml/min Normal Estimated CRCL 120.54 LAB L501.1300 10-20 RATIO BUN/CRE Normal 11.6 LAB L501.2200 8.5-10 mg/dL Low .1 CA 8.3 LAB L501.5300 136-14 mmol/L 5 NA Normal 136 LAB L501.5600 3.5-5. mmol/L Low 1 K 3.3 LAB L501.5900 98-107 mmol/L CL Normal 106 LAB L501.6100 21.0-3 mmol/L 2.0 CO2 Normal 23.0 LAB L501.6200 5-15 GAP Normal 7 Performed By: #### L500.2500 #### [facility] [address] [place], [address] 12 LEAD ELECTROCARDIOGRAM Observed: 08/07/2017 Status: F Source: [place] 8:59 AM [facility] REPOSITORY [facility] Cardiovascular Services [address] [place] [address] 12 Lead EKG 08/02/17 1913 MR#: [id number] Acct: [id number] Name: EDDIE JAQUEZA Desi Rep #: [id number] : 1990 26 From: Roger Montes De Oca MD Attending Dr: Status: DEP ER Ordering Dr: Thelma Conroy MD Date: 08/02/17 Location: ED Sex: F C Admitted: Test Reason : DIZZINESS Blood Pressure : / mmHG Vent. Rate : 093 BPM Atrial Rate : 093 BPM P-R Int : 124 ms QRS Dur : 088 ms QT Int : 354 ms P-R-T Axes : 015 037 -05 degrees QTc Int : 440 ms Normal sinus rhythm Nonspecific T wave abnormality Abnormal ECG Confirmed by WIN BOLAND, ROGER ([id number]), news videotape editor ABE MEYER ([id number]) on 08/04/2017 2:47:31 PM Referred By: Shanthi Felton Confirmed By:ROGER MONTES DE OCA MD 08/04/17 1447 Date Roger Montes De Oca MD CC: No Primary Care Physician; Thelma Conroy MD; Shanthi Felton MD Signed BURRER HAND OFFICE VISIT Observed: 08/05/2017 Status: F Source: [place] REPORT 4:06 AM [facility] [address] 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 Is patient in pain?: Yes Pain scale (1-10): 9 Allergies naproxen Allergy (Verified 08/02/17 18:19) Rash Penicillins Allergy (Verified 08/02/17 18:19) Hives Medications ondansetron HCl 4 mg tablet 4 mg PO Q4H #60 tab 06/21/17 [Rx Confirmed 08/02/17] vit no.78-iron 18 mg-folic acid no.1 1 mg-dha 300 mg capsule 1 cap PO QDAY #90 cap 06/21/17 [Rx Confirmed 08/02/17] Potassium Chloride [K-Dur] 20 meq PO BID #10 tab 08/02/17 [Rx] ferrous sulfate 325 mg (65 mg iron) tablet,delayed release 325 mg PO QDAY #90 tab 08/02/17 [Rx Confirmed 08/02/17] Last Menstral Period: 01/24/18 Zika: Zika virus screening: Negative : No PFSH PFSH Medical History Depression (Acute) Surgical History delivery delivered (Acute) Family History Grandfather Diabetes Heart disease Social History Smoking Status: Former smoker alcohol intake: never substance use type: does not use caffeine: Yes what type of physical activity do you participate in: none seatbelt use: sometimes do you feel safe at home: Yes additional social history: [employer] website [place] Pregancy History 3 Elective abortions Hx Para 2 Spontaneous abortions Past Pregnancies Del. DateName GA/Weeks Outcome Route Bth WeighInfant GeLabor LgtAnesthesiDel LocatProvider FOB t n h a n HPI 28 weeks: Details: ROWENA JAUQEZ is a 26 year old who presents for routine OB visit. OB Visit RUY Calculator Estimated Delivery Date 10/19/17 Based on Ultrasound Date 02/15/17 Current WG 29w 2d Number 1 Expected Delivery Route/Plan RLTCS BTO Specific Issue/Plans flu vaccine declined minichart given: [] tdap vaccine: [] rhogam: [] LARC form signed: [] labor support person: Dakotah pain management: repeat c section cut cord/dad catch: [] : no PP control planned: [] special requests: [] Initial Weight: Not Recorded Date Weight BP Urine PrFHR FuHt Pres MoCTX DilationFetal StVisit NoProviderComments E ot v te GA G Effac lucose ed Visit Notes Visit Date: 08/01/17 More pressure, pelvic discomfort. Cervix closed. CELE Cha on 08/01/17 Visit Date: 07/19/17 doing well. Denies VB, LOF. CELE Cha on 07/19/17 Visit Date: 06/21/17 doing well. Denies CTX, LOF, VB CELE Cha on 06/21/17 Visit Date: 05/08/17 no vb lof cramping having some dizziness Shanthi Felton MD on 05/08/17 ISAIAH Felton MD on 04/07/17 Visit Date: 04/07/17 ISAIAH Felton MD on 04/07/17 Visit Date: 04/07/17 No visit notes to display Visit Date: 03/10/17 No visit notes to display Visit Date: 02/15/17 No visit notes to display Diagnostics Diagnostics Labs Blood Type A NEGATIVE 07/21/17 Antibody Screen NEGATIVE 07/21/17 Hct 29.1 % (37-47) L 08/02/17 Hgb 9.5 g/dl (12.0-15.0) L 08/02/17 Obstetrics Ultrasound 07/24/17 Rubella IgG Antibody 101.8 IU/mL 06/19/17 Glucose 1 Hr 50 gm 86 mg/dL (70-140) 07/21/17 Details: HIV: Urine Culture: Sequential Screen: NIPT Screen: ROS Const Denies fever(s) GI Denies abdominal pain, Reports as per HPI Denies vaginal discharge, Denies abnormal vaginal bleeding, Reports as per HPI Exam Const General: healthy appearing, comfortable, no acute distress GI Inspection: normal to inspection Palpation: soft, nontender Results [id number] Office Urine Glucose Negative Last Edit by Lashonda Paz on 08/01/17 16:35 Office Urine Protein Trace Last Edit by Lashonda Paz on 08/01/17 16:35 Assessment AND Plan Problems 1. Excessive growth affecting management of in third trimester, single or unspecified fetus O36.63X0 Growth US every 4 weeks 2. Anemia during in second trimester O99.012 3. Supervision of high risk , antepartum O09.90 PRR RUY: 10/19/17 per US. PC: Olive Toscano. BF: Suzanne. 4. Rh negative status during in third trimester O09.893; Z67.91 rhogam PRN and at 28 weeks 5. Urinary tract infection in mother during third trimester of O23.43 06/21/17 REPEAT URINE CULTURE negative 6. History of delivery Z98.891 plans RLTCS/BTO. history of postop wound cellulitis; needs title 19 signed 7. PCOS (polycystic ovarian syndrome) E28.2 8. Depression, unspecified depression type F32.9 9. 28 weeks gestation of Z3A.28 Plan Orders placed: none movement and labor precautions reviewed. ACOG trimester education reviewed and updated. see problem list details for updated plan management information. GA appropriate handout given. Orders Orders: Coding Level of Care Code Off vis,est,level 3 Diagnoses Excessive growth affecting management of in third trimester, single or unspecified fetus O36.63X0 Fetus number: single or unspecified fetus Trimester: third trimester Anemia during in second trimester O99.012 Trimester: second trimester Supervision of high risk , antepartum O09.90 Rh negative status during in third trimester O09.893; Z67.91 Trimester: third trimester Urinary tract infection in mother during third trimester of O23.43 Trimester: third trimester History of delivery Z98.891 PCOS (polycystic ovarian syndrome) E28.2 Depression, unspecified depression type F32.9 Depression Type: unspecified 28 weeks gestation of Z3A.28 06/16/18 0406 <Electronically signed by Shanthi Felton MD> Date Shanthi Felton MD Cosigner Signature: Date (if applicable) CC: EMERGENCY DEPARTMENT Observed: 08/03/2017 Status: F Source: [place] SUMMARY 12:22 AM [facility] REPOSITORY [facility] Medical Records Department [address] [place] [address] Emergency Department Summary 08/02/17 1908 MR#: [id number] Acct: [id number] Name: ROWENA JAQUEZ Rep #: [id number] : 1990 26 From: Thelma Conroy MD PCP: Care Physician, No Primary Status: DEP ER - ER Visit Summary Date of Service: 08/02/17 Chief Complaint: Dizzy and History of Present Illness: The patient is a 26 F whose felt weak and dizzy for a while but symptoms seem to be worse today. She recently found out she is anemic and picked up iron pills today. She is currently 28 weeks . She has had normal movement. Physical Examination: Blood pressure is 137/80, temperature 98.7, heart rate 101, respiratory rate 18, pulse ox 99% on room air. Patient sitting upright in bed no acute distress. She is alert and talkative. Head neck examination is unremarkable. Heart is regular rate and rhythm. Lung sounds are clear. Abdomen is soft and gravid. There is no focal tenderness. Test Results: EKG is sinus at 93 with lateral T-wave flattening. This is unchanged compared to prior study from August 2012. CBC was a hemoglobin of 9.5 and hematocrit 29.1. This is compared to labs on July 21 of 9.7 and 29.3. Chemistry studies are significant for potassium of 3.1. Urinalysis is unremarkable. Emergency Department Course and Treatment: Patient was given IV fluids here. Repeat vital signs include a blood pressure 112/78 heart rate of 95. heart tones are measured at 152. I spoke with Dr. Felton, the patient's BURRER HAND. Patient will be given potassium replacement for a few days. She is instructed to take her iron supplements. She is instructed to take it easy for the next few days and I will write her a work note for tomorrow. Treatment Plan: [] Disposition: Discharge Impression: Hypokalemia This note was generated with [employer] software. It may contain incorrect words, spelling, and punctuation that were not noted in review of the chart prior to signing ED Disposition - Plan for ED Patient: Chief Complaint: Dizziness Referrals: Care Physician,No Primary [Primary Care Provider] - What to do if you have Problems For any increased pain, shortness of breath, bleeding, nausea or vomiting, chest pain, or any unexpected problems, contact your Primary Care Provider. Call [facility] ([phone]) or report to the closest Emergency Room. Call 911 if necessary. 08/03/17 0022 <Electronically signed by Thelma Conroy MD> Date Thelma Conroy MD Cosigner Signature (If Indicated): Date CC: No Primary Care Physician DISCHARGE INSTRUCTION Observed: 08/02/2017 Status: F Source: [place] 8:51 PM [facility] REPOSITORY [facility] Medical Records Department [address] [place] [address] Discharge Instruction 08/02/172049 MR#: [id number] Acct: [id number] Name: ROWENA JAQUEZ Rep #: [id number] : 1990 26 From: Thelma Conroy MD PCP: Care Physician, No Primary Status: REG ER ED Disposition - Plan for ED Patient: Disposition: Home or Assisted Living Chief Complaint: Dizziness Instructions: ED Potassium Deficiency Prescriptions: Potassium Chloride [K-Dur] 20 meq PO BID #10 tablet Referrals: Shanthi Felton MD [STAFF PHYSICIAN] - Keep Ching appointment What to do if you have Problems For any increased pain, shortness of breath, bleeding, nausea or vomiting, chest pain, or any unexpected problems, contact your Primary Care Provider. Call [facility] ([phone]) or report to the closest Emergency Room. Call 911 if necessary. 08/02/172050 <Electronically signed by Thelma Conroy MD> Date Thelma Conroy MD Cosigner Signature (If Indicated): Date CC: No Primary Care Physician URINALYSIS, COMPLETE Collected: 08/02/2017 Status: F Source: [place] 7:55 PM [facility] REPOSITORY Order Comment: Order Date: 08/02/17 Has pt arrived? Y How was Urine Obtained? CLEAN CATCH TYPE CODE TESTS RESULT OUT OF RANGE REFERENCE UNITS LAB L400.3000 Yellow COLOR Normal Yellow LAB L400.3050 Clear Normal CLARITY Cloudy LAB L400.3200 Normal mg/dl Normal GLUCOSE, UR Normal LAB L400.3300 Negative mg/dL Normal BILIRUBIN URINE Negative LAB L400.3400 Negative mg/dl Normal KETONE UR Negative LAB L400.3465 1.002-1.030 Normal SP.GR. DIPSTX 1.015 LAB L400.3550 5.0 - 8.0 pH UR Normal 7.0 LAB L400.3600 Negative mg/dl PROT Normal DIPSTX Negative LAB L400.3700 Normal mg/dl Normal UROBILI Normal LAB L400.3750 Negative Normal NITRITE UR Negative LAB L400.3780 Negative /ul Normal OCCULT BLOOD-UR Negative LAB L400.3800 Negative /ul High LEUK 25 ESTERASE LAB L400.4050 0-5 /hpf WBC Normal 0-5 SEEN LAB L400.4100 0-5 /hpf Normal RBC-UA 0-5 SEEN LAB L400.4150 5-10 /hpf SQUAM Normal EPI 5-10 SEEN LAB L400.4300 None Seen /hpf Normal BACTERIA RARE LAB L400.4350 <or=2+ /hpf 0 Normal MUCUS, URINE SEEN Performed By: #### L400.0001 #### [facility] [address] [place], [address] BEDSIDE GLUCOSE Collected: 08/02/2017 Status: F Source: [place] 7:30 PM [facility] REPOSITORY TYPE CODE TESTS RESULT OUT OF RANGE REFERENCE UNITS LAB L501.080 70-110 mg/dL Normal BEDSIDE GLU 80 Result Comment: MANAGEMENT OF PATIENT CARE PER NURSING PROTOCOL Performed By: #### L501.080 #### [facility] Point of Care [address] [place] [address] CBC W/DIFF, AUTOMATED Collected: 08/02/2017 Status: F Source: [place] 7:30 PM [facility] REPOSITORY TYPE CODE TESTS RESULT OUT OF RANGE REFERENCE UNITS LAB L100.1000 4.4-11.0 K/mm3 Normal WBC 7.2 LAB L100.1200 4.2-5.4 M/mm3 Low RBC 3.34 LAB L100.1300 12.0-15.0 g/dl Low HGB 9.5 LAB L100.1400 37-47 % Low HCT 29.1 LAB L100.1500 81-99 fL Normal MCV 87.1 LAB L100.1600 27.0-32.0 pg Normal MCH 28.4 LAB L100.1700 32-36 g/gl Normal MCHC 32.6 LAB L100.1810 11.6-14.6 % Normal RDW CV 13.1 LAB L100.1820 35.1-43.9 fl Normal RDW SD 42.3 LAB L100.1900 150-450 K/mm3 Normal PLT 305 LAB L100.2000 6.2-12.0 fl Normal MPV 9.1 LAB L100.2100 47-70 % Normal NEUT% 53.2 LAB L100.2200 19-41 % Normal LY% 33.1 LAB L100.2300 0-10 % High MONO% 11.6 LAB L100.2400 0-5 % Normal EO% 1.8 LAB L100.2500 0-1 % Normal BASO% 0.3 LAB L100.2550 0.0-0.9 % Normal IM GRAN % 0.000 Result Comment: IG% - Immature Granulocytes (promyelocytes, myelocytes and metamyelocytes) > 1% indicates that a LEFT SHIFT is Present. LAB L100.2620 2.0-7.7 X10 3/uL Normal Absolute Neut 3.8 LAB L100.2720 0.83-4.51 X10 3/ul Normal Absolute Lymph 2.37 Performed By: #### L100.0100 #### [facility] [address] [place], [place], [address] BASIC METABOLIC Collected: 08/02/2017 Status: F Source: [place] PROFILE (BMP) 7:30 PM [facility] REPOSITORY TYPE CODE TESTS RESULT OUT OF RANGE REFERENCE UNITS LAB L501.0100 74-106 mg/dL Normal GLU 83 Result Comment: Please note revised GLUCOSE reference range effective 2017. LAB L501.1000 7-18 mg/dL Normal BUN 8 LAB L501.1100 0.55-1.02 mg/dL Normal CREAT,SERUM 0.61 Result Comment: The validity of the calculated GFR AND GFRAA in patients over 70 years has not been determined. Clinical correlation is essential. LAB L501.1110 >60 mL/min Normal EST GFR 124 Result Comment: Non- GFR Calc LAB L501.1115 >60 mL/min Normal EST GFR - AA 151 Result Comment: GFR Calc LAB L501.1255 ml/min Normal Estimated CRCL 118.57 LAB L501.1300 10-20 RATIO BUN/CRE Normal 13.2 LAB L501.2200 8.5-10 mg/dL .1 CA Normal 8.5 LAB L501.5300 136-14 mmol/L 5 NA Normal 139 LAB L501.5600 3.5-5. mmol/L Low 1 K 3.1 LAB L501.5900 98-107 mmol/L CL Normal 106 LAB L501.6100 21.0-3 mmol/L 2.0 CO2 Normal 26.0 LAB L501.6200 5-15 GAP Normal 7 Performed By: #### L500.2500 #### [facility] [address] [place], [address] OB LIMITED WITH Observed: 07/28/2017 Status: F Source: [place] BIOMETRICS 7:39 PM [facility] REPOSITORY [facility] Imaging Services [address] [place] [address] OB Limited With Biometrics MR#: [id number] Acct: [id number] Name: ROWENA JAQUEZ Rep #: [id number] : 1990 F 26 From: Kali Julio MD PCP: Care Physician, No Primary Status: REG CLI Study: OB Limited With Biometrics Date of Exam: 07/24/17 Exam# [id number] Ordering Dr: Lyn Schroeder STATISTICAL METHODS PROFESSOR-C STUDY: SECOND AND THIRD TRIMESTER OBSTETRICAL ULTRASOUND - LIMITED REASON FOR EXAM: Female, 26 years old. Placenta previa LMP: PRIOR ULTRASOUND: None. TECHNIQUE: Transabdominal ultrasound evaluation was performed. FINDINGS: There is a single intrauterine fetus. The fetus is in a cephalic presentation. There is demonstrated cardiac activity with a heart rate of 138 bpm. There is a normal amniotic fluid volume. The largest amniotic fluid pocket measures 7.1 cm. The amniotic fluid index (NICK) is within normal limits. The placenta is is not seen anywhere near the internal os of the cervix.. There are Grade 0 placental changes. The cervix measures cm in length. BIOMETRY: BPD: 7.8 cm 31 weeks, 3 days HC: 28.7 cm 31 weeks, 5 days AC: 25.4 cm : 29 weeks, 4 days FL: 5.7 cm: 29 weeks, 6 days age by current US: 30 weeks, 5 days. RUY by current US: 09/27/2017. Estimated weight: 1489 grams, +/- 217 grams, 98 percentile. Gender: US/OB Limited With Biometrics IMPRESSION: There is no placenta previa and no abruptio placentae. The fetus is in a cephalic presentation and longitudinal lie with composite measurements averaging out to be equivalent to 30 weeks 5 days +/- 5 days with an expected date of delivery of 09/27/2017. There is an estimated weight 148 9 g. This is in the 98th percentile Electronically Signed: Kali Julio, at 7:51 EDT Tel , Service support , CC: HEATHER Schroeder; No Primary Care Physician Transit Police Officer: Signed OFFICE VISIT REPORT Observed: 07/23/2017 Status: F Source: [place] 11:10 AM [facility] [place] [address] OFFICE VISIT Date of Service: 07/21/17 MR#: [id number] Acct: [id number] Patient: ROWENA JAQUEZ Rep #: [id number] : 1990 Provider: Shanthi Felton MD Age/Sex: 26/F Location: [facility] Status: Signed Intake Vital Signs07/21/17 Height 5 ft 4 in 07/21/17 Weight: 189 lb 2 oz 07/21/17 Body Mass Index (BMI) 32.4 07/21/17 Blood Pressure 112/70 Intake Visit Reasons: rhogham injection Chief Complaint: est ob Allergies naproxen Allergy (Verified 07/21/17 15:00) Rash Penicillins Allergy (Verified 07/21/17 15:00) Hives Medications ondansetron HCl 4 mg tablet 4 mg PO Q4H #60 tab 06/21/17 [Rx Confirmed 07/21/17] vit no.78-iron 18 mg-folic acid no.1 1 mg-dha 300 mg capsule 1 cap PO QDAY #90 cap 06/21/17 [Rx Confirmed 07/21/17] Patient : Yes Office Meds RhoGAM Ultra-Filtered PLUS Performing Provider: Shanthi Felton MD Administered by: Tram Hawley on 07/21/17 15:02 Dose Route Admin Location Lot Number Expiration Date NDC Foundation Assistant 1,500 unit IM [employer]'[id number] 12/09/18 8911-9907-08 [facility] s Care Assessment AND Plan Orders Orders: Medications Discontinued: RhoGAM Ultra-Filtered PLUS (rho(D) im1,500 units IM ONCE NS O09.899, Z67.91 Trmadebbie bernal globulin) Discontinued Reason : Office Medication has been Long serrano as given 07/23/17 1110 <Electronically signed by Shanthi Felton MD> Date Shanthi Felton MD Cosigner Signature: Date (if applicable) CC: GLUCOSE CHALLENGE GEST Collected: 07/21/2017 Status: F Source: [place] 1H 50G 2:27 PM [facility] REPOSITORY TYPE CODE TESTS RESULT OUT OF RANGE REFERENCE UNITS LAB L501.0250 70-140 mg/dL Normal GLU GEST 86 50g 1H Performed By: #### L501.0250 #### [facility] [place], [address] CBC W/DIFF, AUTOMATED Collected: 07/21/2017 Status: F Source: [place] 2:27 PM [facility] REPOSITORY TYPE CODE TESTS RESULT OUT OF RANGE REFERENCE UNITS LAB L100.1000 4.4-11.0 K/mm3 Normal WBC 6.9 LAB L100.1200 4.2-5.4 M/mm3 Low RBC 3.31 LAB L100.1300 12.0-15.0 g/dl Low HGB 9.7 LAB L100.1400 37-47 % Low HCT 29.3 LAB L100.1500 81-99 fL Normal MCV 88.5 LAB L100.1600 27.0-32.0 pg Normal MCH 29.3 LAB L100.1700 32-36 g/gl Normal MCHC 33.1 LAB L100.1810 11.6-14.6 % Normal RDW CV 13.2 LAB L100.1820 35.1-43.9 fl Normal RDW SD 43.0 LAB L100.1900 150-450 K/mm3 Normal PLT 304 LAB L100.2000 6.2-12.0 fl Normal MPV 8.9 LAB L100.2100 47-70 % Normal NEUT% 55.9 LAB L100.2200 19-41 % Normal LY% 31.6 LAB L100.2300 0-10 % High MONO% 11.4 LAB L100.2400 0-5 % Normal EO% 0.9 LAB L100.2500 0-1 % Normal BASO% 0.1 LAB L100.2550 0.0-0.9 % Normal IM GRAN % 0.100 Result Comment: IG% - Immature Granulocytes (promyelocytes, myelocytes and metamyelocytes) > 1% indicates that a LEFT SHIFT is Present. LAB L100.2620 2.0-7.7 X10 3/uL Normal Absolute Neut 3.9 LAB L100.2720 0.83-4.51 X10 3/ul Normal Absolute Lymph 2.19 Performed By: #### L100.0100, B101.7450 #### [facility] [address] [place], [address] TYPE AND SCREEN Collected: 07/21/2017 Status: F Source: [place] 2:27 PM [facility] REPOSITORY Order Comment: Reason for Type AND Screen/Red Cells: TYPE CODE TESTS RESULT OUT OF RANGE REFERENCE UNITS LAB B10.0800 A Normal BLOOD TYPE GEL NEGATIVE LAB B100.4000 Normal Antibody NEGATIVE Screen Performed By: #### L100.0100, B101.7450 #### [facility] [address] [place], [address] BURRER HAND OFFICE VISIT Observed: 07/19/2017 Status: F Source: [place] REPORT 9:07 AM [facility] REPOSITORY [facility] [address] [place] [address] OFFICE VISIT Date of Service: 07/19/17 MR#: [id number] Acct: [id number] Name: ROWENA JAQUEZ Rep #: [id number] : 1990 Provider: HEATHER Schroeder Age/Sex: 26/F Location: [facility] Status: Signed Intake Vital Signs07/19/17 Height 5 ft 4 in 07/19/17 Weight: 190 lb 07/19/17 Body Mass Index (BMI) 32.5 07/19/17 Blood Pressure 108/58 Intake Visit Reasons: 26 WEEKS Chief Complaint: est ob Sand Molder Required: No Is patient in pain?: No Allergies naproxen Allergy (Verified 07/19/17 08:35) Rash Penicillins Allergy (Verified 07/19/17 08:35) Hives Medications ondansetron HCl 4 mg tablet 4 mg PO Q4H #60 tab 06/21/17 [Rx Confirmed 07/19/17] vit no.78-iron 18 mg-folic acid no.1 1 mg-dha 300 mg capsule 1 cap PO QDAY #90 cap 06/21/17 [Rx Confirmed 07/19/17] Last Menstral Period: 01/24/18 Zika: Zika virus screening: Negative : No PFSH PFSH Medical History Depression (Acute) Surgical History delivery delivered (Acute) Family History Grandfather Diabetes Heart disease Social History Smoking Status: Former smoker alcohol intake: never substance use type: does not use caffeine: Yes what type of physical activity do you participate in: none seatbelt use: sometimes do you feel safe at home: Yes additional social history: [employer] website [place] Pregancy History 3 Elective abortions Hx Para 2 Spontaneous abortions Past Pregnancies Del. DateName GA/Weeks Outcome Route Bth WeighInfant GeLabor LgtAnesthesiDel LocatProvider FOB t n h a n HPI 26 WEEKS: Details: ROWENA JAQUEZ is a 26 year old who presents for routine OB visit. OB Visit RUY Calculator Estimated Delivery Date 10/19/17 Based on Ultrasound Date 02/15/17 Current WG 26w 6d Number 1 Expected Delivery Route/Plan RLTCS BTO Specific Issue/Plans flu vaccine declined minichart given: [] tdap vaccine: [] rhogam: [] LARC form signed: [] labor support person: [place] pain management: repeat c section cut cord/dad catch: [] : no PP control planned: [] special requests: [] Initial Weight: Not Recorded Date Weight BP Urine PrFHR FuHt Pres MoCTX DilationFetal StVisit NoProviderComments E ot v te GA G Effac lucose ed Visit Notes Visit Date: 07/19/17 doing well. Denies VB, LOF. CELE Cha on 07/19/17 Visit Date: 06/21/17 doing well. Denies CTX, LOF, VB CELE Cha on 06/21/17 Visit Date: 05/08/17 no vb lof cramping having some dizziness Shanthi Felton MD on 05/08/17 ISAIAH Felton MD on 04/07/17 Visit Date: 04/07/17 ISAIAH Felton MD on 04/07/17 Visit Date: 04/07/17 No visit notes to display Visit Date: 03/10/17 No visit notes to display Visit Date: 02/15/17 No visit notes to display Diagnostics Diagnostics Labs Blood Type A NEGATIVE 04/07/17 Antibody Screen NEGATIVE 04/07/17 Hct 30.5 % (37-47) L 07/07/17 Hgb 10.4 g/dl (12.0-15.0) L 07/07/17 Obstetrics Ultrasound 05/26/17 Rubella IgG Antibody 101.8 IU/mL 06/19/17 RPR NONREACTIVE (NONREACTIVE) 04/07/17 Hep Bs Antigen Negative (Negative) 04/07/17 Details: HIV: Urine Culture: Sequential Screen: NIPT Screen: ROS Const Reports system reviewed and no additional complaints, except as docu GI Denies nausea, Denies vomiting, Denies abdominal pain Exam Const General: cooperative Nutritional Appearance: well nourished GI Palpation: soft, nontender, other (gravid) Assessment AND Plan Problems 1. Supervision of high risk , antepartum O09.90 PRR RUY: 10/19/17 per US. PC: Olive Toscano. BF: Suzanne. 2. Marginal placenta previa O44.20 07/10/17 per M bulbous area ILIR, ?fibroid. Repeat US [facility] wk of July 4 NOT low lyying or previa or acreata, routine care planned s/p mfm consult 3. Anemia during in second trimester O99.012 4. Rh negative status during in first trimester O09.891 rhogam PRN and at 28 weeks 5. Urinary tract infection in mother during first trimester of O23.41 06/21/17 REPEAT URINE CULTURE negative 6. Previous section Z98.891 plans RLTCS/BTO. history of postop wound cellulitis; Sign title 19 7. PCOS (polycystic ovarian syndrome) E28.2 8. Depression, unspecified depression type F32.9 9. 26 weeks gestation of Z3A.26 Plan Orders placed: 28 week labs, T AND S, rhogam and tdap: will come in on 07/21 for this as has to go to work today Ultrasound for growth and recheck placenta week of July 24 as per MFM. Has follow up appt with MFM 1 month. Reviewed of labor precautions, movement/kick counts ACOG trimester education reviewed and updated See problem list details for updated plan of care Gestational age appropriate handout given RTO: 2 weeks Orders Orders: Medications New: Boostrix Tdap (diphth,pertus(acell),tetanus0.5 mL IM ONCE NS O09.899, O09.90, Z23, Z67.91 ) Coding Level of Care Code Off vis,est,level 3 Diagnoses Supervision of high risk , antepartum O09.90 Marginal placenta previa O44.20 Anemia during in second trimester O99.012 Trimester: second trimester Rh negative status during in first trimester O09.891 Trimester: first trimester Urinary tract infection in mother during first trimester of O23.41 Trimester: first trimester Previous section Z98.891 PCOS (polycystic ovarian syndrome) E28.2 Depression, unspecified depression type F32.9 Depression Type: unspecified 26 weeks gestation of Z3A.26 07/19/17 0907 <Electronically signed by Lyn OAKLEY> Date Lyn OAKLEY Cosigner Signature: Date (if applicable) CC: EMERGENCY DEPARTMENT Observed: 07/07/2017 Status: F Source: SOFIA SUMMARY 4:32 PM [facility] REPOSITORY [facility] Medical Records Department [address] [place] [address] Emergency Department Summary 07/07/17 0726 MR#: [id number] Acct: [id number] Name: ROWENA JAQUEZ Rep #: [id number] : 1990 26 From: Leif Hauser MD PCP: Care Physician, No Primary Status: DEP ER - ER Visit Summary Date of Service: 07/07/17 Chief Complaint: Nausea, vomiting and diarrhea History of Present Illness: The patient is a 26 F who is 25 weeks and 1 day . Ab0. Due date is 10-19-17. Patient is in the care of Dr. Ever Hart of [facility]. She states she has had nausea vomiting diarrhea intermittently for last week or so. Denies any dysuria hematuria. No fever. Denies any vaginal bleeding or discharge. Physical Examination: Well-appearing young female. Vital signs are stable afebrile. H EENT exam moist wheeze members. Neck nontender no lymphadenopathy. Lungs clear to auscultation bilaterally. Heart regular rate and rhythm no murmur. Abdomen soft. Gravid nontender uterus. Normal bowel sounds. The right upper right lower quadrant nontender. No peritoneal signs. She is moving all 4 extremities. No edema. Back exam nontender no CVA tenderness. Neurologically she is awake alert without focal motor deficits. Test Results: None Emergency Department Course and Treatment: Will be treated with IV fluids, Zofran and have a p.o. challenge. Treatment Plan: She will be reevaluated. Once she can hold down p.o. fluids she will be discharged home. Repeat exam she is doing better at 08 25. Positive p.o. fluids. She was also given Imodium for diarrhea. Disposition: Discharge Impression: Acute nausea, vomiting and diarrhea. at 25 weeks This note was generated with [employer] software. It may contain incorrect words, spelling, and punctuation that were not noted in review of the chart prior to signing ED Disposition - Plan for ED Patient: Disposition: Home or Assisted Living Chief Complaint: Nausea/Vomiting/Diarrhea Instructions: ED Vomiting Diarrhea Nonspecific Ad Referrals: Shanthi Felton MD [STAFF PHYSICIAN] - 3-5 Days if not improving Additional Instructions: Plenty of fluids and rest. Advance her diet as tolerated. Use the Zofran as needed for nausea. Follow-up the [facility] physician if not improving or return to ER feeling worse. What to do if you have Problems For any increased pain, shortness of breath, bleeding, nausea or vomiting, chest pain, or any unexpected problems, contact your Primary Care Provider. Call [facility] ([phone]) or report to the closest Emergency Room. Call 911 if necessary. 07/07/17 1632 <Electronically signed by Leif Hauser MD> Date Leif Hauser MD Cosigner Signature (If Indicated): Date CC: No Primary Care Physician DISCHARGE INSTRUCTION Observed: 07/07/2017 Status: F Source: VALATIE 4:32 PM [facility] REPOSITORY [facility] Medical Records Department [address] [place] [address] Discharge Instruction 07/07/17 0731 MR#: [id number] Acct: [id number] Name: ROWENA JAQUEZ Rep #: [id number] : 1990 26 From: Leif Hauser MD PCP: Care Physician, No Primary Status: DEP ER ED Disposition - Plan for ED Patient: Disposition: Home or Assisted Living Chief Complaint: Nausea/Vomiting/Diarrhea Instructions: ED Vomiting Diarrhea Nonspecific Ad Referrals: Shanthi Felton MD [STAFF PHYSICIAN] - 3-5 Days if not improving Additional Instructions: Plenty of fluids and rest. Advance her diet as tolerated. Use the Zofran as needed for nausea. Follow-up the [facility] physician if not improving or return to ER feeling worse. What to do if you have Problems For any increased pain, shortness of breath, bleeding, nausea or vomiting, chest pain, or any unexpected problems, contact your Primary Care Provider. Call [facility] ([phone]) or report to the closest Emergency Room. Call 911 if necessary. 07/07/17 1632 <Electronically signed by Leif Hauser MD> Date Leif Hauser MD Cosigner Signature (If Indicated): Date CC: No Primary Care Physician CBC W/DIFF, AUTOMATED Collected: 07/07/2017 Status: F Source: VALATIE 6:55 AM [facility] REPOSITORY TYPE CODE TESTS RESULT OUT OF RANGE REFERENCE UNITS LAB L100.1000 4.4-11.0 K/mm3 Normal WBC 9.1 LAB L100.1200 4.2-5.4 M/mm3 Low RBC 3.29 LAB L100.1300 12.0-15.0 g/dl Low HGB 10.4 LAB L100.1400 37-47 % Low HCT 30.5 LAB L100.1500 81-99 fL Normal MCV 92.7 LAB L100.1600 27.0-32.0 pg Normal MCH 31.6 LAB L100.1700 32-36 g/gl Normal MCHC 34.1 LAB L100.1810 11.6-14.6 % Normal RDW CV 13.9 LAB L100.1820 35.1-43.9 fl High RDW SD 45.7 LAB L100.1900 150-450 K/mm3 Normal PLT 308 LAB L100.2000 6.2-12.0 fl Normal MPV 9.1 LAB L100.2100 47-70 % Normal NEUT% 52.7 LAB L100.2200 19-41 % Normal LY% 33.7 LAB L100.2300 0-10 % High MONO% 10.9 LAB L100.2400 0-5 % Normal EO% 2.3 LAB L100.2500 0-1 % Normal BASO% 0.1 LAB L100.2550 0.0-0.9 % Normal IM GRAN % 0.300 Result Comment: IG% - Immature Granulocytes (promyelocytes, myelocytes and metamyelocytes) > 1% indicates that a LEFT SHIFT is Present. LAB L100.2620 2.0-7.7 X10 3/uL Normal Absolute Neut 4.8 LAB L100.2720 0.83-4.51 X10 3/ul Normal Absolute Lymph 3.07 Performed By: #### L100.0100 #### [facility] [address] [place], [place], [address] BASIC METABOLIC Collected: 07/07/2017 Status: F Source: VALATIE PROFILE ([facility]) 6:55 AM [facility] REPOSITORY TYPE CODE TESTS RESULT OUT OF RANGE REFERENCE UNITS LAB L501.0100 74-106 mg/dL Normal GLU 84 Result Comment: Please note revised GLUCOSE reference range effective 2017. LAB L501.1000 7-18 mg/dL Normal BUN 7 LAB L501.1100 0.55-1.02 mg/dL Normal CREAT,SERUM 0.60 Result Comment: The validity of the calculated GFR AND GFRAA in patients over 70 years has not been determined. Clinical correlation is essential. LAB L501.1110 >60 mL/min Normal EST GFR 125 Result Comment: Non- GFR Calc LAB L501.1115 >60 mL/min Normal EST GFR - AA 151 Result Comment: GFR Calc LAB L501.1255 ml/min Normal Estimated CRCL 120.54 LAB L501.1300 10-20 RATIO BUN/CRE Normal 11.6 LAB L501.2200 8.5-10 mg/dL Low .1 CA 8.2 LAB L501.5300 136-14 mmol/L 5 NA Normal 139 LAB L501.5600 3.5-5. mmol/L 1 K Normal 3.5 LAB L501.5900 98-107 mmol/L High CL 108 LAB L501.6100 21.0-3 mmol/L 2.0 CO2 Normal 24.0 LAB L501.6200 5-15 GAP Normal 7 Performed By: #### L500.2500 #### [facility] [address] [place], [place], [address] Observed: 06/21/2017 Status: F Source: SOFIA CULTURE, URINE 4:27 PM [facility] REPOSITORY Urine Culture ORGANISM 1: Mixed Gram Positive Organisms Langley Count 11,000-25,000 MIX CULTURE Mixed contaminants. Submit a new specimen if indicated. Performed By: #### M100.0650 #### [facility] [address] [place], [address] [facility] OFFICE VISIT Observed: 06/21/2017 Status: F Source: SOFIA REPORT 2:58 PM [facility] REPOSITORY [facility] [address] [place] [place] [address] OFFICE VISIT Date of Service: 06/21/17 MR#: [id number] Acct: [id number] Name: ROWENA JAQUEZ Rep #: [id number] : 1990 Provider: HEATHER Schroeder Age/Sex: 26/F Location: [facility] Status: Signed Intake Vital Signs06/21/17 Blood Pressure 123/68 06/21/17 Height 5 ft 4 in 06/21/17 Weight: 188 lb 4 oz 06/21/17 Body Mass Index (BMI) 32.3 Intake Visit Reasons: 2 week FU from [facility] Chief Complaint: est ob Sand Molder Required: No Is patient in pain?: No Allergies naproxen Allergy (Verified 06/21/17 14:37) Rash Penicillins Allergy (Verified 06/21/17 14:37) Hives Medications ondansetron HCl 4 mg tablet 4 mg PO Q4H #60 tab 06/21/17 [Rx Confirmed 06/21/17] vit no.78-iron 18 mg-folic acid no.1 1 mg-dha 300 mg capsule 1 cap PO QDAY #90 cap 06/21/17 [Rx Confirmed 06/21/17] Last Menstral Period: 01/24/18 Zika: Zika virus screening: Negative : No PFSH PFSH Medical History Depression (Acute) Surgical History delivery delivered (Acute) Family History Grandfather Diabetes Heart disease Social History Smoking Status: Current every day smoker alcohol intake: never substance use type: does not use caffeine: Yes what type of physical activity do you participate in: none seatbelt use: sometimes do you feel safe at home: Yes additional social history: [employer] [place] Pregancy History 3 Elective abortions Hx Para 2 Spontaneous abortions Past Pregnancies Del. DateName GA/Weeks Outcome Route Bth WeighInfant GeLabor LgtAnesthesiDel LocatProvider FOB t n h a n HPI 2 week FU from [facility]: Details: ROWENA JAQUEZ is a 26 year old who presents for routine OB visit. OB Visit RUY Calculator Estimated Delivery Date 10/19/17 Based on Ultrasound Date 02/15/17 Current WG 22w 6d Number 1 Expected Delivery Route/Plan RLTCS BTO Specific Issue/Plans flu vaccine declined minichart given: [] tdap vaccine: [] rhogam: [] LARC form signed: [] labor support person: [place] pain management: repeat c section cut cord/dad catch: [] : no PP control planned: [] special requests: [] Initial Weight: Not Recorded Date Weight BP Urine PrFHR FuHt Pres MoCTX DilationFetal StVisit NoProviderComments E ot v te GA G Effac lucose ed Visit Notes Visit Date: 06/21/17 doing well. Denies CTX, LOF, VB CELE Cha on 06/21/17 Visit Date: 05/08/17 no vb lof cramping having some dizziness Shanthi Felton MD on 05/08/17 ISAIAH Felton MD on 04/07/17 Visit Date: 04/07/17 ISAIAH Felton MD on 04/07/17 Visit Date: 04/07/17 No visit notes to display Visit Date: 03/10/17 No visit notes to display Visit Date: 02/15/17 No visit notes to display Diagnostics Diagnostics Labs Blood Type A NEGATIVE 04/07/17 Antibody Screen NEGATIVE 04/07/17 Hct 36.7 % (37-47) L 04/07/17 Hgb 12.3 g/dl (12.0-15.0) 04/07/17 Obstetrics Ultrasound 05/26/17 Rubella IgG Antibody 101.8 IU/mL 06/19/17 RPR NONREACTIVE (NONREACTIVE) 04/07/17 Hep Bs Antigen Negative (Negative) 04/07/17 Chlam trachomat DNA PCR Negative (Negative) 02/15/17 N.gonorrhoeae DNA (PCR) Negative (Negative) 02/15/17 Miscellaneous Test 02/15/17 Details: HIV: Urine Culture: Sequential Screen: NIPT Screen: ROS Const Reports system reviewed and no additional complaints, except as docu GI Denies nausea, Denies vomiting, Denies abdominal pain Exam Const General: cooperative Nutritional Appearance: well nourished GI Palpation: soft, nontender, other (gravid) Results BMSUA2 Office Urine Glucose Negative Last Edit by Nasrin Moore on 06/21/17 14:43 Office Urine Protein Trace Last Edit by Nasrin Moore on 06/21/17 14:43 Assessment AND Plan Problems 1. Supervision of high risk , antepartum O09.90 PRR RUY: 10/19/17 per US. PC: Olive Toscano. BF: Suzanne. 2. 23 weeks gestation of Z3A.23 3. Rh negative status during in first trimester O09.891 rhogam PRN and at 28 weeks 4. Urinary tract infection in mother during first trimester of O23.41 06/21/17 REPEAT URINE CULTURE 5. Previous section Z98.891 plans RLTCS/BTO. history of postop wound cellulitis 6. Marginal placenta previa O44.20 NOT low lyying or previa or acreata, routine care planned s/p mfm consult Plan Orders placed: urine culture Reviewed of labor precautions, movement/kick counts ACOG trimester education reviewed and updated See problem list details for updated plan of care Gestational age appropriate handout given RTO: 4 weeks Orders Orders: Medications Refilled: [id number] 1-dha 18 mg iron-1 mg -300 mg (Prenate DHA (ferrous1 cap PO QDAY asparto glycinate)) Discontinued: ondansetron HCl Discontinued Reason: Duplicate Or4 mg PO Q6H PRN nausea and vomiting ramone Coding Level of Care Code Off vis,est,level 3 Diagnoses Supervision of high risk , antepartum O09.90 23 weeks gestation of Z3A.23 Rh negative status during in first trimester O09.891 Trimester: first trimester Urinary tract infection in mother during first trimester of O23.41 Trimester: first trimester Previous section Z98.891 Marginal placenta previa O44.20 06/21/17 1458 <Electronically signed by Lyn Schroeder STATISTICAL METHODS PROFESSOR-C> Date Lyn Schroeder STATISTICAL METHODS PROFESSOR-C Cosigner Signature: Date (if applicable) CC: RUBELLA IGG [facility] Collected: 06/19/2017 Status: F Source: VALATIE EMPLOYEE 3:12 PM [facility] REPOSITORY TYPE CODE TESTS RESULT OUT OF RANGE REFERENCE UNITS LAB L509.4010 IU/mL Normal Rubella IgG 101.8 Result Comment: Antibody results Interpretation of Immune Status < 5 IU/ml Presumed Non-immune 5 - < 10 IU/ml Equivocal > or = 10 IU/ml Presumed Immune Performed By: #### L509.4010 #### [facility] [address] [place], [place], [address] HEP B SURFACE Collected: 06/19/2017 Status: F Source: SOFIA ANTIBODIES EMP 3:12 PM [facility] REPOSITORY TYPE CODE TESTS RESULT OUT OF RANGE REFERENCE UNITS LAB L3100.0537 . Normal Hep B Non Reactive Harman AB Result Comment: Non Reactive: Inconsistent with immunity, less than 10 mIU/mL Reactive: Consistent with immunity, greater than 9.9 mIU/mL Performed By: #### L3100.0537, L3100.3400, L3400.1750 #### [facility] (refer to report for specific site) refer to report for address and phone number [facility] Collected: 06/19/2017 Status: F Source: VALATIE TITER 3:12 PM [facility] REPOSITORY TYPE CODE TESTS RESULT OUT OF RANGE REFERENCE UNITS LAB L3100.3400 Immune >29.9 AU/mL Normal RUBEOLA 156.0 Result Comment: Negative <25.0 Equivocal 25.0 - 29.9 Positive >29.9 Presence of antibodies to Rubeola is presumptive evidence of immunity except when acute infection is suspected. Performed at: - [facility] [address] [id number] Electrical Controls Designer: Charli Jacobs PhD, Phone: [phone] Performed By: #### L3100.0537, L3100.3400, L3400.1750 #### [facility] (refer to report for specific site) refer to report for address and phone number MUMPS ANTIBODY,IGG Collected: 06/19/2017 Status: F Source: SOFIA 3:12 PM [facility] REPOSITORY TYPE CODE TESTS RESULT OUT OF RANGE REFERENCE UNITS LAB L3400.1750 Immune >10.9 AU/mL Normal MUMPS,IgG 46.6 Result Comment: Negative <9.0 Equivocal 9.0 - 10.9 Positive >10.9 A positive result generally indicates past exposure to Mumps virus or previous vaccination. Performed By: #### L3100.0537, L3100.3400, L3400.1750 #### [facility] (refer to report for specific site) refer to report for address and phone number PROGRESS NOTE Observed: 06/08/2017 Status: COMPLETED Source: HELIO 10:15 AM [facility] REPOSITORY Maternal Medicine Consult Date of Service: 06/08/2017 Referring Provider: Shanthi Felton Primary Care Provider: Franklin Goddard MD Reason for Consult: Dr. Shanthi Felton requests that Rowena be evaluated due to concerns for an accreta with an anterior placenta and two prior deliveries. Carin is a 26 y.o. at 21w0d gestation who presents for evaluation due to concerns for an accreta in the setting of an anterior placenta and two prior deliveries. Her deliveries were close together. One in 03/2015 and the second in 06/2016. After her delivery in 2016, she had an ex-lap due to a diffuse intra-abdominal staph infection in 07/2016. She then healed by secondary intention. She had an ultrasound today that did not show any evidence of an accreta. We briefly discussed the increased risk for blood loss and hysterectomy with an accreta. The patient does not desire future and desires a tubal ligation with this . We will continue to follow by ultrasound and will discuss this further if an accreta is present. Obstetric History T2 L2 SAB0 TAB0 Ectopic0 Multiple0 Live Births2 # Outcome Date GA Lbr Carlos/2nd Weight Sex Delivery Anes PTL Lv 3 Current 2 Term 07/12/16 39w0d 3.544 kg F CS-Unspec EPI Y JOSE D Name: Olive 1 Term 04/17/15 38w0d 3.544 kg M CS-Unspec JOSE D Name: Deborah Complications: Breech delivery Past Medical History: Diagnosis Date Depression depression PCOS (polycystic ovarian syndrome) UTI (urinary tract infection) Past Surgical History: Procedure Laterality Date ABDOMEN SURGERY 2016 Staph infection in incision. 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 No Other infections Genetics Age is > than 35y as of estimated date No Thalassemia No Neural Tube Defect No Congenital Heart Defect No Down Syndrome No Gumaro-Sachs No Joaquin Disease No Sickle Cell Disease or Trait No Hemophilia, Thrombophilia No Muscular Dystrophy No Cystic Fibrosis No Zeus's Chorea No Mental Retardation/Autism No Maternal Metabolic Disorder No Recurrent Loss, or a Stillbirth No Inherited Genetic or Chromosomal Disorder No Illicit; Rec.drugs; Alcohol since last menses No Family History Problem Relation Age of Onset Diabetes Mellitus II Maternal Grandmother High Blood Pressure Maternal Grandmother Heart Disease Maternal Grandfather Outpatient Encounter Prescriptions as of 06/08/2017 Medication Sig Dispense Refill MV-Min-Fe Fum-FA-DHA ( 1 PO) Take by mouth Ondansetron HCl (ZOFRAN PO) Take 4 mg by mouth as needed No facility-administered encounter medications on file as of 06/08/2017. Review of Systems Constitutional: Negative for fever and chills. Eyes: Negative for visual disturbance. Respiratory: Negative for shortness of breath. Cardiovascular: Negative for chest pain. Gastrointestinal: Negative for nausea, vomiting, abdominal pain, diarrhea and constipation. Genitourinary: Negative for dysuria. Neurological: Negative for dizziness, weakness, numbness and headaches. Physical Exam Nursing note and vitals reviewed. Constitutional: She is oriented to person, place, and time. She appears well-developed and well-nourished. No distress. Pulmonary/Chest: No respiratory distress. Abdominal: Soft. She exhibits no distension. There is no tenderness. There is no rebound and no guarding. Musculoskeletal: She exhibits no edema or tenderness. Neurological: She is alert and oriented to person, place, and time. Skin: Skin is warm and dry. She is not diaphoretic. Psychiatric: She has a normal mood and affect. Her behavior is normal. Judgment and thought content normal. FHT: Positive Ultrasound Results: Normal anatomic survey. Biometry is consistent with gestational age. No evidence of an accreta. Impression/Plan: 26 y.o. at 21w0d with Active Non-Hospital Problems Diagnosis Date Noted Suspected placental problem not found 06/08/2017 No evidence of an accreta currently Will do a follow up ultrasound in 4-6 weeks to re-evaluate the placenta History of delivery, currently 06/08/2017 h/o delivery x 2 with a take back to the OR approximately 2-3 weeks post operatively for an intra-abdominal staph infection. For repeat delivery and tubal ligation. Follow up in 4-6 weeks for an ultrasound. Jose Edwards MD OB ANATOMY SCAN Observed: 05/26/2017 Status: F Source: VALATIE 11:25 AM [facility] REPOSITORY [facility] Imaging Services [address] [place] [address] OB Anatomy Scan MR#: [id number] Acct: [id number] Name: ROWENA JAQUEZ Rep #: [id number] : 1990 F 26 From: Memo Carroll MD PCP: Gonzales Goddard MD Status: REG CLI Study: OB Anatomy Scan Date of Exam: 05/26/17 Exam# [id number] Ordering Dr: Shanthi Felton MD STUDY: SECOND AND THIRD TRIMESTER OBSTETRICAL ULTRASOUND REASON FOR EXAM: Female, 26 years old. Routine survey. LMP: January 12, 2017. TECHNIQUE: Transabdominal PRIOR ULTRASOUND: None. FINDINGS: There is a single intrauterine fetus. The fetus is in a cephalic presentation. There is demonstrated cardiac activity with a heart rate of 150 bpm. There is a normal amniotic fluid volume. The largest amniotic fluid pocket measures 6.8 cm x 5.7 cm. The placenta is anterior with a marginal previa. There are Grade 0 placental changes. The cervix measures 5.5 cm in length. The bilateral adnexal regions are normal. BIOMETRY: BPD: 4.7 cm: 20 weeks, 3 days HC: 17.6 cm: 20 weeks, 1 days AC: 14.9 cm: 20 weeks, 2 days FL: 3.5 cm: 21 weeks, 0 days CI: 79% FL/BPD: 73% FL/HC: FL/AC: 23% HC/AC: 1.18 age by current US: 20 weeks, 4 days. RUY by current US: October 09, 2017. Estimated weight: 355 grams, +/- 50 grams, 98 %. Age by LMP: 19 weeks, 1 days. RUY by LMP: October 19, 2017. ANATOMY: Gender: Male Cranium: Normal lateral ventricles. Normal choroid plexus. Normal cerebellum. Normal cisterna magna. Normal face, nose and lips. Chest: Normal 4-chamber heart. Abdomen/Pelvis: Normal diaphragm. Normal stomach. Normal abdominal wall. Normal cord insertion. Normal 3 vessel cord. Normal kidneys. Normal bladder. Spine: Normal cervical spine. Normal thoracic spine. Normal lumbar spine. Normal sacrum. Extremities: Normal bilateral upper extremities. Normal bilateral lower extremities. US/OB Anatomy Scan IMPRESSION: There is a single live intrauterine gestation with a mean gestational age of 20 weeks and 4 days. Electronically Signed: Memo Carroll MD at 20:56 EDT Tel [phone], Service support , CC: Gonzales Goddard MD; Shanthi Felton MD Transit Police Officer: Signed [facility] OFFICE VISIT Observed: 05/09/2017 Status: F Source: SOFIA REPORT 10:22 PM [facility] REPOSITORY [facility] [address] [place] [address] OFFICE VISIT Date of Service: 05/08/17 MR#: [id number] Acct: [id number] Name: ROWENA JAQUEZ Rep #: [id number] : 1990 Provider: Shanthi Felton MD Age/Sex: 26/F Location: [facility] [place] Status: Signed Intake Vital Signs05/08/17 Height 5 ft 4 in 05/08/17 Weight: 187 lb 05/08/17 Body Mass Index (BMI) 32.1 05/08/17 Blood Pressure 117/60 Intake Visit Reasons: 16 WEEKS Chief Complaint: est ob Sand Molder Required: No Is patient in pain?: No Allergies naproxen Allergy (Verified 05/08/17 15:23) Rash Penicillins Allergy (Verified 05/08/17 15:23) Hives Medications ondansetron HCl 4 mg tablet 4 mg PO Q6H PRN #30 tab 02/15/17 [Rx Confirmed 05/08/17] vit no.78-iron 18 mg-folic acid no.1 1 mg-dha 300 mg capsule 1 cap PO QDAY #90 cap 02/16/17 [Rx Confirmed 05/08/17] ondansetron HCl 4 mg tablet 4 mg PO Q4H #60 tab 04/07/17 [Rx Confirmed 05/08/17] nitrofurantoin monohydrate/macrocrystals 100 mg capsule 1 cap PO Q12H 7 Days #14 cap 05/09/17 [Rx] Last Menstral Period: 01/24/18 Zika: Zika virus screening: Negative : No PFSH PFSH Medical History Depression (Acute) Surgical History delivery delivered (Acute) Family History Grandfather Diabetes Heart disease Social History Smoking Status: Current every day smoker alcohol intake: never substance use type: does not use caffeine: Yes what type of physical activity do you participate in: none seatbelt use: sometimes do you feel safe at home: Yes additional social history: [employer]- [employer] [place] Pregancy History 3 Elective abortions Hx Para 2 Spontaneous abortions Past Pregnancies Del. DateName GA/Weeks Outcome Route Bth WeighInfant GeLabor LgtAnesthesiDel LocatProvider FOB t n h a n HPI 16 WEEKS: Details: ROWENA JAQUEZ is a 26 year old who presents for routine OB visit. OB Visit RUY Calculator Estimated Delivery Date 10/19/17 Based on Ultrasound Date 02/15/17 Current WG 16w 5d Number 1 Expected Delivery Route/Plan RLTCS Specific Issue/Plans flu vaccine declined Initial Weight: Not Recorded Date Weight BP Urine PrFHR FuHt Pres MoCTX DilationFetal StVisit NoProviderComments E ot v te GA G Effac lucose ed Visit Notes Visit Date: 05/08/17 no vb lof cramping having some dizziness Shanthi Felton MD on 05/08/17 ISAIAH Felton MD on 04/07/17 Visit Date: 04/07/17 ISAIAH Felton MD on 04/07/17 Visit Date: 04/07/17 No visit notes to display Visit Date: 03/10/17 No visit notes to display Visit Date: 02/15/17 No visit notes to display Diagnostics Diagnostics Labs Blood Type A NEGATIVE 04/07/17 Antibody Screen NEGATIVE 04/07/17 Hct 36.7 % (37-47) L 04/07/17 Hgb 12.3 g/dl (12.0-15.0) 04/07/17 Rubella IgG Antibody 46.4 IU/mL 04/07/17 RPR NONREACTIVE (NONREACTIVE) 04/07/17 Hep Bs Antigen Negative (Negative) 04/07/17 Chlam trachomat DNA PCR Negative (Negative) 02/15/17 N.gonorrhoeae DNA (PCR) Negative (Negative) 02/15/17 Miscellaneous Test 02/15/17 Details: HIV: neg Urine Culture: positive Sequential Screen: NIPT Screen: ROS Const Denies fever(s) GI Denies abdominal pain, Reports as per HPI Denies vaginal discharge, Denies abnormal vaginal bleeding, Reports as per HPI Exam Const General: healthy appearing, comfortable, no acute distress GI Inspection: normal to inspection Palpation: soft, nontender Assessment AND Plan Problems 1. Rh negative status during in first trimester O09.891 rhogam PRN and at 28 weeks 2. Encounter for supervision of other normal in first trimester Z34.81 PRR RUY: 10/19/17 per US. PC: Olive Toscano. BF: Suzanne. 3. Urinary tract infection in mother during first trimester of O23.41 positive repeat urine culture- ordered macrobid and needs repeated again 4. History of delivery Z98.891 plans RLTCS. history of postop wound cellulitis 5. PCOS (polycystic ovarian syndrome) E28.2 6. Depression, unspecified depression type F32.9 7. 16 weeks gestation of Z3A.16 Plan Orders placed: urine culture, anatomy scan ACOG trimester education reviewed and updated. see problem list details for updated plan management information. [place] appropriate handout given. Orders Orders: Coding Level of Care Code Off vis,est,level 3 Diagnoses Rh negative status during in first trimester O09.891 Trimester: first trimester Encounter for supervision of other normal in first trimester Z34.81 Normal : other normal Trimester: first trimester Urinary tract infection in mother during first trimester of O23.41 Trimester: first trimester History of delivery Z98.891 PCOS (polycystic ovarian syndrome) E28.2 Depression, unspecified depression type F32.9 Depression Type: unspecified 16 weeks gestation of Z3A.16 05/09/172 <Electronically signed by Shanthi Felton MD> Date Shanthi Felton MD Cosigner Signature: Date (if applicable) CC: Observed: 05/08/2017 Status: F Source: SOFIA CULTURE, URINE 5:27 PM [facility] REPOSITORY Urine Culture ORGANISM 1: Staphylococcus epidermidis Langley Count >100,000 Staphylococcus epidermidis: REACTION Benzylpenicillin NF >=0.5 R Cefoxitin *NF + Inducable Clindamycin Res[place] - Gentamicin $ <=0.5 S Levofloxacin $ <=0.12 S Linezolid $$$$ 1 S Nitrofurantoin $ <=16 S Oxacillin NF >=4 R Rifampin $$ <=0.5 S Tetracycline NF <=1 S Vancomycin $ 1 S (NF) indicates non-formulary drug at [facility]. Approval by Infectious Disease Specialist required before non-formulary drugs may be ordered and/or dispensed. * CLSI guidelines does not recommend testing of cephalosporins. This interpretation is deduced from Beta-lactam/penicillin results. Performed By: #### M100.0650 #### [facility] [address] [place], [address] [facility] OFFICE VISIT Observed: 05/07/2017 Status: F Source: SOFIA REPORT 2:50 PM [facility] REPOSITORY [facility] [address] [place] [address] OFFICE VISIT Date of Service: 04/07/17 MR#: [id number] Acct: [id number] Name: WYATTROWENA GUILLEN Rep #: [id number] : 1990 Provider: Shanthi Felton MD Age/Sex: 26/F Location: [facility] [place] Status: Signed Intake Vital Signs04/07/17 Height 5 ft 4 in 04/07/17 Weight: 179 lb 2 oz 04/07/17 Body Mass Index (BMI) 30.7 04/07/17 Blood Pressure 108/59 Intake Visit Reasons: (OB) Chief Complaint: routine OB Accompanied by: boyfriend Is patient in pain?: No Allergies naproxen Allergy (Verified 03/10/17 15:43) Rash Penicillins Allergy (Verified 01/19/18 15:43) Hives Medications ondansetron HCl 4 mg tablet 4 mg PO Q6H PRN #30 tab 02/15/17 [Rx Confirmed 02/24/17] vit no.78-iron 18 mg-folic acid no.1 1 mg-dha 300 mg capsule 1 cap PO QDAY #90 cap 02/16/17 [Rx Confirmed 02/24/17] ondansetron HCl 4 mg tablet 4 mg PO Q4H #60 tab 04/07/17 [Rx Confirmed 04/07/17] Last Menstral Period: 01/24/17 Zika: Zika virus screening: Negative [facility] Medical History Depression (Acute) Surgical History delivery delivered (Acute) Family History Grandfather Diabetes Heart disease Social History Smoking Status: Current every day smoker alcohol intake: never substance use type: does not use caffeine: Yes what type of physical activity do you participate in: none seatbelt use: sometimes do you feel safe at home: Yes additional social history: [employer] [place] Pregancy History 3 Elective abortions Hx Para 2 Spontaneous abortions Past Pregnancies Del. DateName GA/Weeks Outcome Route Bth WeighInfant GeLabor LgtAnesthesiDel LocatProvider FOB t n h a n HPI (OB): Details: ROWENA JAQUEZ is a 26 year old who presents for routine OB visit. OB Visit RUY Calculator Estimated Delivery Date 10/19/17 Based on Ultrasound Date 02/15/17 Current WG 16w 3d Number 1 Expected Delivery Route/Plan RLTCS Specific Issue/Plans flu vaccine declined Initial Weight: Not Recorded Date Weight BP Urine PrFHR FuHt Pres MoCTX DilationFetal StVisit NoProviderComments E ot v te GA G Effac lucose ed Visit Notes Visit Date: 04/07/17 ISAIAH Felton MD on 04/07/17 Visit Date: 04/07/17 No visit notes to display Visit Date: 03/10/17 No visit notes to display Visit Date: 12/27/17 No visit notes to display ROS Const Denies fever(s) GI Denies abdominal pain, Reports as per HPI Denies vaginal discharge, Denies abnormal vaginal bleeding, Reports as per HPI Exam Const General: healthy appearing, comfortable, no acute distress GI Inspection: normal to inspection Palpation: soft, nontender Assessment AND Plan Problems 1. Depression, unspecified depression type F32.9 2. PCOS (polycystic ovarian syndrome) E28.2 3. Encounter for supervision of other normal in first trimester Z34.81 Gr 3/2 RUY: 10/19/17 per US. PC: Olive Toscano. BF: Suzanne. 4. History of delivery Z98.891 plans RLTCS. history of postop wound cellulitis 5. Urinary tract infection in mother during first trimester of O23.41 Needs repeat urine culture 6. Rh negative status during in first trimester O09.891; Z67.91 rhogam PRN and at 28 weeks Plan Orders placed: none ACOG trimester education reviewed and updated. see problem list details for updated plan management information. [place] appropriate handout given. Medications Discontinued: sulfamethoxazole-trimethoprim 800-160 mg Discontinued Reason: Order Comp1 tab PO BID leted Coding Level of Care Code Off vis,est,level 3 Diagnoses Depression, unspecified depression type F32.9 Depression Type: unspecified PCOS (polycystic ovarian syndrome) E28.2 Encounter for supervision of other normal in first trimester Z34.81 Normal : other normal Trimester: first trimester History of delivery Z98.891 Urinary tract infection in mother during first trimester of O23.41 Trimester: first trimester Rh negative status during in first trimester O09.891; Z67.91 Trimester: first trimester 05/07/17 1450 <Electronically signed by Shanthi Felton MD> Date Shanthi Felton MD Cosigner Signature: Date (if applicable) CC: [facility] OFFICE VISIT Observed: 04/07/2017 Status: F Source: SOFIA REPORT 3:35 PM [facility] [address] [place] [address] OFFICE VISIT Date of Service: 04/07/17 MR#: [id number] Acct: [id number] Name: ROWENA JAQUEZ Rep #: [id number] : 1990 Provider: Shanthi Felton MD Age/Sex: 26/F Location: [facility] [place] Status: Signed Intake Vital Signs04/07/17 Height 5 ft 4 in 04/07/17 Weight: 179 lb 2 oz 04/07/17 Body Mass Index (BMI) 30.7 04/07/17 Blood Pressure 108/59 Intake Visit Reasons: ob routine Allergies naproxen Allergy (Verified 03/10/17 15:43) Rash Penicillins Allergy (Verified 03/10/17 15:43) Hives Medications ondansetron HCl 4 mg tablet 4 mg PO Q6H PRN #30 tab 02/15/17 [Rx Confirmed 02/24/17] vit no.78-iron 18 mg-folic acid no.1 1 mg-dha 300 mg capsule 1 cap PO QDAY #90 cap 02/16/17 [Rx Confirmed 02/24/17] ondansetron HCl 4 mg tablet 4 mg PO Q4H #60 tab 04/07/17 [Rx Confirmed 04/07/17] Last Menstral Period: 01/24/18 PFSH PFSH Medical History Depression (Acute) Surgical History delivery delivered (Acute) Family History Grandfather Diabetes Heart disease Social History Smoking Status: Current every day smoker alcohol intake: never substance use type: does not use caffeine: Yes what type of physical activity do you participate in: none seatbelt use: sometimes do you feel safe at home: Yes additional social history: [employer]- [employer] [place] Pregancy History 3 Elective abortions Hx Para 2 Spontaneous abortions Past Pregnancies Del. DateName GA/Weeks Outcome Route Bth WeighInfant GeLabor LgtAnesthesiDel LocatProvider FOB t n h a n HPI ob routine: Details: ROWENA JAQUEZ is a 26 year old who presents for routine OB visit. OB Visit RUY Calculator Estimated Delivery Date 10/19/17 Based on Ultrasound Date 02/15/17 Current WG 12w 1d Number 1 Expected Delivery Route/Plan RLTCS Specific Issue/Plans flu vaccine declined Initial Weight: Not Recorded Date Weight BP Urine PFHR FuHt Pres MCTX DilatioFetal SVisit NProvideComment rot ov n t ote r s EGA Ef Gluco faced se 02/15/1183 lb 130/71 TV US p 7 2 oz er Sm a 4w nd gest 6d sac wi thout f etal po le. 4 w k 5d Visit Notes Visit Date: 04/07/17 SM Shanthi Felton MD on 04/07/17 Visit Date: 03/10/17 No visit notes to display Visit Date: 02/15/17 No visit notes to display ROS Const Denies fever(s) GI Denies abdominal pain, Reports as per HPI Denies vaginal discharge, Denies abnormal vaginal bleeding, Reports as per HPI Exam Const General: healthy appearing, comfortable, no acute distress GI Inspection: normal to inspection Palpation: soft, nontender Assessment AND Plan Problems 1. Urinary tract infection in mother during first trimester of O23.41 Needs repeat urine culture 2. History of delivery Z98.891 3. Encounter for supervision of other normal in first trimester Z34.81 Gr 3/2 RUY: 10/19/17 per US. PC: Olive Toscano. BF: Suzanne. 4. Depression, unspecified depression type F32.9 Plan Orders placed: new ob labs drawn today ACOG trimester education reviewed and updated. see problem list details for updated plan management information. [place] appropriate handout given. Medications New: Coding Level of Care Code Off vis,est,level 3 Diagnoses Urinary tract infection in mother during first trimester of O23.41 Trimester: first trimester History of delivery Z98.891 Encounter for supervision of other normal in first trimester Z34.81 Normal : other normal Trimester: first trimester Depression, unspecified depression type F32.9 Depression Type: unspecified 04/07/17 1535 <Electronically signed by Shanthi Felton MD> Date Shanthi Felton MD Cosignalexis Signature: Date (if applicable) CC: CBC W/DIFF, AUTOMATED Collected: 04/07/2017 Status: F Source: SOFIA 3:00 PM [facility] REPOSITORY TYPE CODE TESTS RESULT OUT OF RANGE REFERENCE UNITS LAB L100.1000 4.4-11.0 K/mm3 Normal WBC 8.3 LAB L100.1200 4.2-5.4 M/mm3 Low RBC 4.16 LAB L100.1300 12.0-15.0 g/dl Normal HGB 12.3 LAB L100.1400 37-47 % Low HCT 36.7 LAB L100.1500 81-99 fL Normal MCV 88.2 LAB L100.1600 27.0-32.0 pg Normal MCH 29.6 LAB L100.1700 32-36 g/gl Normal MCHC 33.5 LAB L100.1810 11.6-14.6 % Normal RDW CV 13.3 LAB L100.1820 35.1-43.9 fl Normal RDW SD 42.8 LAB L100.1900 150-450 K/mm3 Normal PLT 314 LAB L100.2000 6.2-12.0 fl Normal MPV 9.6 LAB L100.2100 47-70 % Normal NEUT% 59.1 LAB L100.2200 19-41 % Normal LY% 29.7 LAB L100.2300 0-10 % High MONO% 10.4 LAB L100.2400 0-5 % Normal EO% 0.6 LAB L100.2500 0-1 % Normal BASO% 0.1 LAB L100.2550 0.0-0.9 % Normal IM GRAN % 0.100 Result Comment: IG% - Immature Granulocytes (promyelocytes, myelocytes and metamyelocytes) > 1% indicates that a LEFT SHIFT is Present. LAB L100.2620 2.0-7.7 X10 3/uL Normal Absolute Neut 4.9 LAB L100.2720 0.83-4.51 X10 3/ul Normal Absolute Lymph 2.45 Performed By: #### L100.0100 #### [facility] [address] [place], [address] RUBELLA IGG Collected: 04/07/2017 Status: F Source: SOFIA 3:00 PM [facility] REPOSITORY TYPE CODE TESTS RESULT OUT OF RANGE REFERENCE UNITS LAB L509.4000 IU/mL Normal Rubella IgG 46.4 Result Comment: Antibody results Interpretation of Immune Status < 5 IU/ml Presumed Non-immune 5 - < 10 IU/ml Equivocal > or = 10 IU/ml Presumed Immune Performed By: #### L509.4000 #### [facility] [address] [place], [address] TYPE AND SCREEN Collected: 04/07/2017 Status: F Source: SOFIA 3:00 PM [facility] REPOSITORY Order Comment: Reason for Type AND Screen/Red Cells: TYPE CODE TESTS RESULT OUT OF RANGE REFERENCE UNITS LAB B10.0800 A Normal BLOOD TYPE GEL NEGATIVE LAB B100.4000 Normal Antibody NEGATIVE Screen Performed By: #### B101.7450 #### [facility] [place], [address] RAPID PLASMIN REAGIN Collected: 04/07/2017 Status: F Source: SOFIA (RPR) 3:00 PM [facility] REPOSITORY TYPE CODE TESTS RESULT OUT OF REFERENCE UNITS RANGE LAB L700.5000 NONREACTIVE NONREACTIVE Normal RPR Performed By: #### L700.5000 #### [facility] [place], [address] HEPATITIS B SURFACE Collected: 04/07/2017 Status: F Source: SOFIA AG 3:00 PM [facility] REPOSITORY TYPE CODE TESTS RESULT OUT OF RANGE REFERENCE UNITS LAB L3100.0400 Negative Normal HB Negative SURF AG Result Comment: Performed at: - [facility] [id number] Electrical Controls Designer: Charli Jacobs PhD, Phone: [phone] Performed By: #### L3100.0390, L3900.0100 #### [facility] (refer to report for specific site) refer to report for address and phone number HIV SCREEN 4TH GEN Collected: 04/07/2017 Status: F Source: SOFIA W/CONFIRM 3:00 PM [facility] REPOSITORY TYPE CODE TESTS RESULT OUT OF RANGE REFERENCE UNITS LAB L3900.0180 Non Reactive Normal HIV1/0/2 Non Reactive SCREEN Performed By: #### L3100.0390, L3900.0100 #### [facility] (refer to report for specific site) refer to report for address and phone number Observed: 03/21/2017 Status: F Source: VALATIE CULTURE, URINE 7:39 PM [facility] REPOSITORY Urine Culture ORGANISM 1: Escherichia coli Langley Count 80,000-100,000 Escherichia coli: REACTION Amoxacillin/Clavulanic Acid $ <=2 S Ampicillin $ <=2 S Ampicillin/Sulbactam $ <=2 S Cefazolin $ <=4 S Cefepime $ <=1 S Ceftriaxone $ <=1 S Ciprofloxacin $ <=0.25 S ESBL - Ertapenim $$$ <=0.5 S Gentamicin $ <=1 S Imipenem *NF <=0.25 S Levofloxacin $ <=0.12 S Nitrofurantoin $ <=16 S Piperacillin/Tazobactam $$ <=4 S Tobramycin $ <=1 S Trimethoprim/Sulfametho $ <=20 S (NF) indicates non-formulary drug at [facility]. Approval by Infectious Disease Specialist required before non-formulary drugs may be ordered and/or dispensed. Performed By: #### M100.0650 #### [facility] [address] [place], [place], [address] BURRER [facility] OFFICE VISIT Observed: 03/21/2017 Status: F Source: SOFIA REPORT 12:02 PM [facility] REPOSITORY [facility] [address] [place] [address] OFFICE VISIT Date of Service: 03/21/17 MR#: [id number] Acct: [id number] Name: ROWENA JAQUEZ Rep #: [id number] : 1990 Provider: HEATHER Schroeder Age/Sex: 26/F Location: [facility] Status: Signed Intake Intake Visit Reasons: UTI? Allergies naproxen Allergy (Verified 03/10/17 15:43) Rash Penicillins Allergy (Verified 03/10/17 15:43) Hives Medications ondansetron HCl 4 mg tablet 4 mg PO Q6H PRN #30 tab 02/15/17 [Rx Confirmed 02/24/17] vit no.78-iron 18 mg-folic acid no.1 1 mg-dha 300 mg capsule 1 cap PO QDAY #90 cap 02/16/17 [Rx Confirmed 02/24/17] nitrofurantoin monohydrate/macrocrystals 100 mg capsule 1 cap PO Q12H 7 Days #14 cap 03/21/17 [Rx Confirmed 03/21/17] PFSH Medical History Depression (Acute) Surgical History delivery delivered (Acute) Family History Grandfather Diabetes Heart disease Social History Smoking Status: Current every day smoker alcohol intake: never substance use type: does not use caffeine: Yes what type of physical activity do you participate in: none seatbelt use: sometimes do you feel safe at home: Yes additional social history: [employer] [place] HPI UTI?: Details: ROWENA JAQUEZ is a 26 year old who presents for work in for urine check only as she has dysuria without other symptoms Pregancy History 3 Elective abortions Hx Para 2 Spontaneous abortions Past Pregnancies Del. DateName GA/Weeks Outcome Route Bth WeighInfant GeLabor LgtAnesthesiDel LocatProvider FOB t n h a n ROS Const Constitutional: Reports system reviewed and no additional complaints, except as docu GI GI: Denies abdominal pain or change in bowel habits Exam Const General: no acute distress Nutritional Appearance: well nourished Orientation: oriented x3 Assessment AND Plan Problems 1. Urinary tract infection in mother during first trimester of O23.41 Plan UA dip positive small blood and leukocytes. Urine culture Rx macrobid Increase fluids Keep routine OB Call sooner with worsening symptoms. Orders Orders: Medications New: nitrofurantoin monohyd/m-cryst 100 mg (Macrobid) administer with 1 cap PO Q12H 7 days a meal/food; swallow whole; do not open, crush, dissolve , or chew Coding Level of Care Code Off vis,est,level 3 Diagnoses Urinary tract infection in mother during first trimester of O23.41 Trimester: first trimester 03/21/17 1202 <Electronically signed by Lyn OAKLEY> Date Lyn Schroeder STATISTICAL METHODS PROFESSOR-C Cosigner Signature: Date (if applicable) CC: B[facility] OFFICE VISIT Observed: 03/19/2017 Status: F Source: SOFIA REPORT 11:59 PM [facility] [place] [address] [place] [address] OFFICE VISIT Date of Service: 03/10/17 MR#: [id number] Acct: [id number] Name: ROWENA JAQUEZ Rep #: [id number] : 1990 Provider: Shanthi Felton MD Age/Sex: 26/F Location: [facility] [facility] Status: Signed Intake Vital Signs03/10/17 Height 5 ft 4 in 03/10/17 Weight: 180 lb 03/10/17 Body Mass Index (BMI) 30.9 03/10/17 Blood Pressure 120/69 Intake Visit Reasons: (OB) Chief Complaint: est ob Sand Molder Required: No Is patient in pain?: Yes Allergies naproxen Allergy (Verified 03/10/17 15:43) Rash Penicillins Allergy (Verified 03/10/17 15:43) Hives Medications ondansetron HCl 4 mg tablet 4 mg PO Q6H PRN #30 tab 02/15/17 [Rx Confirmed 02/24/17] vit no.78-iron 18 mg-folic acid no.1 1 mg-dha 300 mg capsule 1 cap PO QDAY #90 cap 02/16/17 [Rx Confirmed 02/24/17] Last Menstral Period: 01/24/18 Zika: Zika virus screening: Negative : No PFSH PFSH Medical History Depression (Acute) Surgical History delivery delivered (Acute) Family History Grandfather Diabetes Heart disease Social History Smoking Status: Current every day smoker alcohol intake: never substance use type: does not use caffeine: Yes what type of physical activity do you participate in: none seatbelt use: sometimes do you feel safe at home: Yes additional social history: [employer] [place] Pregancy History 3 Elective abortions Hx Para 2 Spontaneous abortions Past Pregnancies Del. DateName GA/Weeks Outcome Route Bth WeighInfant GeLabor LgtAnesthesiDel LocatProvider FOB t n h a n HPI (OB): Details: ROWENA JAQUEZ is a 26 year old who presents for routine OB visit. OB Visit RUY Calculator Estimated Delivery Date 10/19/17 Based on Ultrasound Date 02/15/17 Current WG 9w 3d Number 1 Specific Issue/Plans Needs serum labs Needs MC and flu Initial Weight: Not Recorded Date Weight BP Urine PrFHR FuHt Pres MoCTX DilationFetal StVisit NoProviderComments E ot v te GA G Effac lucose ed Assessment AND Plan Orders Orders: Medications Discontinued: sulfamethoxazole-trimethoprim 800-160 mg Discontinued Re1 tab PO BID Nasrin Moore ason: Order Completed Coding Level of Care Code OB Routine 03/19/17 4570 <Electronically signed by Shanthi Felton MD> Date Shanthi Felton MD Cosigner Signature: Date (if applicable) CC: ALLERGIES ALLERGIES DATE TYPE / CODE NAME / CODE REACTION SEVERITY SOURCE 03/11/2018 Drug Penicillins/M03384 Hives Unknown [place] Allergy/[phone](RXNORM) [facility] [id number]([facility]) Repository 03/11/2018 Drug hydrocodone/W21117 Hives Unknown [place] Allergy/416 1554(RXNORM) [facility] 189247([facility]) Repository 03/11/2018 Drug acetaminophen/F006 Hives Unknown [place] Allergy/[phone](RXNORM) [facility] 664177([facility]) Repository 03/11/2018 Drug naproxen/[id number] Rash Unknown Sofia Allergy/416 0(RXNORM) Community 884554([facility] ED CT) Repository 06/08/2017 Drug PENICILLINS [facility] Class/10852 Hospital 1003(SNOMED Repository CT) 03/24/2015 DRUG NAPROXEN RASH [facility] INGREDI/[address] [place] 912291(SNOM Repository ED CT) 08/29/2014 Drug PENICILLINS HIVES [facility] Class/27911 [address] [place] 1003(SNOMED Repository CT) ENCOUNTERS ENCOUNTERS ADMIT/DISCHARGE ACCOUNT ADMITTING ENCOUNTER LOCATION SOURCE NUMBER CLASS 03/16/2018/03/16/19 [id number] Ambulatory [address] Repository 03/11/2018/03/11/19 [id number] Emergency [address] ing:ED Repository 03/09/2018/03/10/19 [id number] Christine Coombs Ambulatory [address] ing:NS8Qwtr: Repository EB217Hzs: 1 12/29/2017/12/30/19 [id number] Manny Davis Emergency [address] ing:EDRoom: Repository [id number] 11/24/2017 [id number] Ambulatory [facility] ing:LABSPEC Repository 11/24/2017/11/25/19 [id number] Ambulatory BMSBuilding:B [place] 18 [facility] Repository 11/15/2017/11/16/19 [id number] Emergency [address] ing:ED Repository 10/18/2017/10/19/19 [id number] Ambulatory BMSBuilding:B [place] 18 [facility] Repository 10/17/2017 [id number] Ambulatory BMSBuilding:B [place] [facility] Repository 10/12/2017/10/16/19 [id number] Alex, Inpatient [place] [facility] ing:WPRoom: Repository PN400Pov: 1 2017 [id number] Олегalex, Ambulatory BMSBuilding:Joe Maki [facility] Repository 2017 [id number] Jarrodcristóbalalex, Ambulatory BMSBuilding:Joe Maki [facility] Repository 2017 [id number] Alex, Ambulatory BMSBuilding:Joe Maki [facility] Repository 10/10/2017 [id number] Ambulatory BMSBuilding:B Sofia [facility] Repository 10/10/2017/10/11/19 [id number] Ambulatory BMSBuilding:B [place] 18 [facility] Repository 10/06/2017 [id number] Ambulatory BMSBuilding:Joe Black MS.[facility] Repository 10/05/2017/10/06/19 [id number] [address] [facility] ing:WPOUT Repository 10/03/2017/10/04/19 [id number] Ambulatory BMSBuilding:B [place] 18 [facility] Repository 09/26/2017 [id number] Ambulatory BMSBuilding:B [place] [facility] Repository 09/25/2017 [id number] Ambulatory [facility] ing:LABSPEC Repository 09/25/2017/09/26/19 [id number] Ambulatory BMSBuilding:B [place] 18 [facility] Repository 09/19/2017/09/20/19 [id number] Ambulatory [address] [facility] Hospital ing:OPUS Repository 09/13/2017 [id number] Ambulatory [facility] ing:LAB Repository 09/13/2017/09/14/19 [id number] Ambulatory BMSBuilding:B [place] 18 [facility] Repository 08/29/2017/08/30/19 [id number] Ambulatory BMSBuilding:B [place] 18 [facility] Repository 08/27/2017/08/29/19 [id number] Ambulatory [address] Repository 08/21/2017 [id number] Ambulatory Building:[facility] Repository 08/20/2017 [id number] Ambulatory BMSBuilding:W Sofia [facility] Repository 08/20/2017/08/21/19 [id number] Ambulatory [address] Hospital ing:WPOUTRoom Repository : WP013 08/18/2017/08/19/19 [id number] Emergency [address] Hospital ing:ED Repository 08/15/2017/08/16/19 [id number] Ambulatory BMSBuilding:B [place] 18 [facility] Repository 08/11/2017/08/12/19 [id number] Ambulatory [address] Repository 08/07/2017/08/08/19 [id number] Emergency [address] Hospital ing:ED Repository 08/02/2017/08/03/19 [id number] Emergency [address] Hospital ing:ED Repository 08/01/2017/08/02/19 [id number] Ambulatory BMSBuilding:B [place] 18 [facility] Repository 07/24/2017 [id number] Ambulatory [facility] ing:US Repository 07/21/2017/07/22/19 [id number] Ambulatory BMSBuilding:B [place] 18 [facility] Repository 07/21/2017 [id number] Ambulatory [facility] ing:LAB Repository 07/19/2017/07/20/19 [id number] Ambulatory BMSBuilding:B [place] 18 [facility] Repository 07/10/2017/07/11/19 [id number] Ambulatory Building:[address] Repository 07/07/2017/07/08/19 [id number] Emergency [address] Hospital ing:ED Repository 06/21/2017 [id number] Ambulatory [facility] ing:LABSPEC Repository 06/21/2017/06/22/19 [id number] Ambulatory BMSBuilding:B [place] 18 [facility] Repository 06/19/2017 [id number] Ambulatory [facility] ing:EMPH Repository 06/08/2017/06/09/19 [id number] Ambulatory Building:[address] Repository 06/08/2017/06/09/19 [id number] Ambulatory Building:[address] Repository 06/06/2017 [id number] Ambulatory BMSBuilding:B [place] [facility] Repository 05/26/2017 [id number] Ambulatory [facility] ing:US Repository 05/08/2017 [id number] Ambulatory [facility] ing:LABSPEC Repository 05/08/2017/05/09/19 [id number] Ambulatory BMSBuilding:B [place] 18 [facility] Repository 04/07/2017/04/07/19 [id number] Ambulatory BMSBuilding:B [place] 18 [facility] Repository 04/07/2017 [id number] Ambulatory [facility] ing:LAB Repository 03/21/2017 [id number] Ambulatory [facility] ing:LABSPEC Repository 03/21/2017/03/21/19 [id number] Ambulatory BMSBuilding:B [place] 18 [facility] Repository 03/10/2017 [id number] Ambulatory BMSBuilding:B [place] [facility] Repository PAYERS PAYERS ENCOUNTER GUARANTOR PAYER SUBSCRIBER SOURCE 03/11/2018 ROWENA Weeks Primary ROWENAMatti Black [id number] Insurance:[facility] SANDRO: [facility] DAYDAY sun Number: [id number] [id number] Repository 16862Fpp: 330 Date:2018-03-11 O [phone] () [address]ATTN: [place] [address]VL: 03/11/2018 Secondary NOT GIVENUNK Sofia Insurance:SELF PAY [facility] Number: Effective Repository Date:2018-03-11 03/09/2018 ROWENA Weeks Primary ROWENA Weeks [place] [id number] Insurance:CARESOURCEP DURTSCHIDOB: [facility] DAYDAY sun Number: [id number] [id number] Repository 37732Vzh: (330) Date:2018-03-09P O [phone] () [address]ATTN: [place] [address]YS: 03/09/2018 Secondary NOT GIVENUNK Sofia Insurance:SELF PAY [facility] Number: Effective Repository Date:2018-03-09 12/29/2017 ROWENA Weeks Primary ROWENA Weeks [place] [id number] Insurance:CARESOURCEP DURTSCHIDOB: [facility] Number: [id number] [id number] Repository 04801Whr: (330) Date:2017-12-29P O [phone] () [address]ATTN: [place] [address]ER: 12/29/2017 Secondary NOT GIVENUNK Sofia Insurance:SELF PAY [facility] Number: Effective Repository Date:2017-12-29 11/24/2017 ROWENA Weeks Primary ROWENA Weeks [place] [id number] [place] Insurance:CARESOURCEP DURTSCHIDOB: [facility] Number: [id number] Hospital 31325Xkr: (330) [id number] Repository [phone] () Date:2017-11-24P O [address]ATTN: [place] [address]WA: 11/24/2017 Secondary NOT GIVENUNK Sof[place] Insurance:SELF PAY [facility] Number: Effective Repository Date:2017-11-24 11/24/2017 ROWENA Weeks Primary ROWENA Weeks [place] [id number] [place] Insurance:CARESOURCEP DURTS[place]IDOB: [facility] Number: [id number] Hospital 70962Wcc: 330 [id number] Repository [phone] () Date:2017-10-18P O [address]ATTN: [place] [address]RX: 11/24/2017 Secondary NOT GIVENUNK Sofia Insurance:SELF PAY [facility] Number: Effective Repository Date:2017-11-24 11/15/2017 ROWENA Weeks [facility] ROWENA Weeks [place] [id number] [place] Insurance:CARESOURCEP DURTSCHIDOB: [facility] Number: [id number] Hospital 68143Gxj: 330 [id number] Repository [phone] () Date:2017-11-15P O [address]ATTN: [place] [address]VC: 11/15/2017 Secondary NOT GIVENUNK Sof[place] Insurance:SELF PAY [facility] Number: Effective Repository Date:2017-11-15 10/18/2017 ROWENA Weeks [facility] ROWENA Weeks [place] [id number] [place] Insurance:CARESOURCEP DURTS[place]IDOB: [facility] Number: [id number] Hospital 68063Pqu: (330 [id number] Repository [phone] () Date:2017-10-18P O [address]ATTN: [place] [address]EO: 10/18/2017 Secondary NOT GIVENUNK [place] Insurance:SELF PAY [facility] Number: Effective Repository Date:2017-10-18 10/17/2017 ROWENA Weeks [facility] ROWENA Weeks [place] [id number] [place] Insurance:CARESOURCEP DURTS[place]IDOB: [facility] Number: [id number] Hospital 48211Fvl: (330 [id number] Repository [phone] () Date:2017-07-19P [address]ATTN: [place] [address]WG: 10/17/2017 Secondary NOT GIVENUNK [place] Insurance:SELF PAY [facility] Number: Effective Repository Date:2017-07-19 2017 ROWENA Weeks Primary ROWENA Weeks [place] [id number] [place] Insurance:CARESOURCEP DURTS[place]IDOB: [facility] Number: [id number] Hospital 13885Ocq: 330 [id number] Repository [phone] () Date:2017-06-21P O [address]ATTN: CLAIMS [facility] [place] [address]DE: 2017 Secondary NOT GIVENUNK [place] Insurance:SELF PAY [facility] Number: Effective Repository Date:2017-06-21 2017 ROWENA Weeks Primary ROWENA Weeks [place] [id number] [place] Insurance:CARESOURCEP DURTS[place]IDOB: [facility] Number: [id number] Hospital 32527Nji: (330 [id number] Repository [phone] () Date:2017-06-21 [address]ATTN: [place] [address]AE: 2017 Secondary NOT GIVENUNK [place] Insurance:SELF PAY [facility] Number: Effective Repository Date:2017 2017 ROWENA Weeks Primary ROWENA Weeks [place] [id number] [place] Insurance:CARESOURCEP DURTS[place]OB: [facility] Number: [id number] Hospital 27024Ccy: (330 [id number] Repository [phone] () Date:2017-06-21P O [address]ATTN: CLAIMS [facility] [place] [address]WD: 2017 Secondary NOT GIVENUNK Sof[place] Insurance:SELF PAY [facility] Number: Effective Repository Date:2017 2017 ROWENA Weeks Primary ROWENA Weeks [place] [id number] [place] Insurance:CARESOURCEP DURTS[place]IDOB: [facility] Number: [id number] Hospital 52903Jjc: 330 [id number] Repository [phone] () Date:2017-06-21P O [address]ATTN: [place] [address]DF: 2017 Secondary NOT GIVENUNK Sofia Insurance:SELF PAY [facility] Number: Effective Repository Date:2017 10/10/2017 ROWENA Weeks Primary ROWENA Weeks [place] [id number] Insurance:CARESOURCEP DURTSCHIDOB: [facility] Number: [id number] Hospital [place], [place] [id number] Repository 31007Igd: (330) Date:2017-07-19P O [phone] () [address]ATTN: [place] [address]BR: 10/10/2017 Secondary NOT GIVENUNK [place] Insurance:SELF PAY [facility] Number: Effective Repository Date:2017-07-19 10/10/2017 ROWENA Weeks Primary ROWENA Weeks [place] [id number] [place] Insurance:CARESOURCEP DURTS[place]IDOB: [facility] Number: [id number] Hospital 80996Ibf: (330 [id number] Repository [phone] () Date:2017-09-13P O [address]ATTN: [place] [address]YE: 10/10/2017 Secondary NOT GIVENUNK [place] Insurance:SELF PAY [facility] Number: Effective Repository Date:2017-09-13 10/06/2017 ROWENA Weeks Primary ROWENA Weeks [place] [id number] [place] Insurance:CARESOURCEP DURTS[place]IDOB: [facility] Number: [id number] Hospital 39379Qih: (330 [id number] Repository [phone] () Date:2017-10-05P O [address]ATTN: [place] [address]AC: 10/06/2017 Secondary NOT GIVENUNK [place] Insurance:SELF PAY [facility] Number: Effective Repository Date:2017-10-06 10/05/2017 ROWENA Weeks [facility] ROWENA Weeks [place] [id number] [place] Insurance:CARESOURCEP DURTS[place]IDOB: [facility] Number: [id number] Hospital 41810Pcz: (330 [id number] Repository [phone] () Date:2017-10-05P O [address]ATTN: [place] [address]OP: 10/05/2017 Secondary NOT GIVENUNK [place] Insurance:SELF PAY [facility] Number: Effective Repository Date:2017-10-05 10/03/2017 ROWENA Weeks [facility] ROWENA Weeks [place] [id number] [place] Insurance:CARESOURCEP DURTS[place]IDOB: [facility] Number: [id number] Hospital 12078Tnp: (330 [id number] Repository [phone] () Date:2017-07-19P O [address]ATTN: [place] [address]IE: 10/03/2017 Secondary NOT GIVENUNK [place] Insurance:SELF PAY [facility] Number: Effective Repository Date:2017-09-29 09/26/2017 ROWENA Weeks [facility] ROWENA Weeks [place] [id number] [place] Insurance:CARESOURCEP DURTS[place]IDOB: [facility] Number: [id number] Hospital 28148Opn: (330 [id number] Repository [phone] (HP) Date:2017-07-19P O [address]ATTN: [place] [address]WM: 09/26/2017 Secondary NOT GIVENUNK [place] Insurance:SELF PAY [facility] Number: Effective Repository Date:2017-07-19 09/25/2017 ROWENA Weeks Primary ROWENA Weeks [place] [id number] [place] Insurance:CARESOURCEP DURTS[place]IDOB: [facility] Number: [id number] Hospital 69775Fsv: (330 [id number] Repository [phone] (HP) Date:2017-09-25P O [address]ATTN: [place] [address]TA: 09/25/2017 Secondary NOT GIVENUNK [place] Insurance:SELF PAY [facility] Number: Effective Repository Date:2017-09-25 09/25/2017 ROWENA Weeks Primary ROWENA Weeks [place] [id number] [place] Insurance:CARESOURCEP DURTS[place]IDOB: [facility] Number: [id number] Hospital 99722Fkg: (330 [id number] Repository [phone] () Date:2017-09-25 [address]ATTN: [place] [address]KI: 09/25/2017 Secondary NOT GIVENUNK [place] Insurance:SELF PAY [facility] Number: Effective Repository Date:2017-09-25 09/19/2017 ROWENA Weeks [facility] ROWENA Weeks [place] [id number] [place] Insurance:CARESOURCEP DURTS[place]IDOB: [facility] Number: [id number] Hospital 76632Nss: (330) [id number] Repository [phone] (HP) Date:2017-09-13P O [address]ATTN: [place] [address]QA: 09/19/2017 Secondary NOT GIVENUNK Sof[place] Insurance:SELF PAY [facility] Number: Effective Repository Date:2017-09-13 09/13/2017 ROWENA Weeks Primary ROWENA Weeks [place] [id number] [place] Insurance:CARESOURCEP DURTS[place]IDOB: [facility] Number: [id number] Hospital 26456Lvi: (330 [id number] Repository [phone] () Date:2017-09-13P O [address]ATTN: [place] [address]OC: 09/13/2017 Secondary NOT GIVENUNK [place] Insurance:SELF PAY [facility] Number: Effective Repository Date:2017-09-13 09/13/2017 ROWENA Weeks Primary ROWENA Weeks [place] [id number] Insurance:CARESOURCEP DURTSCHIDOB: [facility] Number: [id number] [id number] Repository 38[address]Tam: (330) Date:2017-07-19P O [phone] () [address]ATTN: [place] [address]TE: 09/13/2017 Secondary NOT GIVENUNK Sof[place] Insurance:SELF PAY [facility] Number: Effective Repository Date:2017-07-19 08/29/2017 ROWENA Weeks [facility] ROWENA Weeks [place] [id number] Insurance:CARESOURCEP DURTSCHIDOB: [facility] Number: [id number] [id number] Repository 418[address]Vmg: (330) Date:2017-07-19P O [phone] () [address]ATTN: [place] [address]SQ: 08/29/2017 Secondary NOT GIVENUNK [place] Insurance:SELF PAY [facility] Number: Effective Repository Date:2017-08-29 08/21/2017 ROWENA [facility] ROWENA [facility] DURTSCHIDOB: Insurance:CARESOURCEP DURTSCHIDOB: [facility] Number: [id number] [address] [id number] [facility] [address], Date: [facility] [address]Cgk: [place] [address] () 08/20/2017 ROWENA Weeks Primary ROWENA Weeks [place] [id number] Insurance:CARESOURCEP DURTS[place]IDOB: [facility] JAMES NAYLOR [facility] Number: [id number] [facility] [place] [id number] Repository 610[address]Hcd: (683) Date:2017-08-20P O [phone] () [address]ATTN: [place] [address]YF: 08/20/2017 Secondary NOT GIVENUNK [place] Insurance:SELF PAY [facility] Number: Effective Repository Date:2017-08-20 08/20/2017 ROWENA Weeks Primary ROWENA Weeks [place] [id number] Insurance:CARESOURCEP DURTS[place]IDOB: [facility] JAMES NAYLOR [facility] Number: [id number] [place], [place] [id number] Repository 295[address]Get: 330) Date:2017-08-20P O [phone] () [address]ATTN: [place] [address]NJ: 08/20/2017 Secondary NOT GIVENUNK [place] Insurance:SELF PAY [facility] Number: Effective Repository Date:2017-08-20 08/18/2017 ROWENA Weeks Primary ROWENA Weeks [place] [id number] Insurance:OBWC DURTSCHIDOB: [facility] JAMES NAYLOR [facility] [id number] Number: Repository 90[address]Gxt: (202) [id number] [phone] () Date:[id number] [address] [address]GD: 08/18/2017 Secondary ROWENA M [place] Insurance:CARESOURCEP DURTSCHIDOB: Community olsurya Number: [id number] Hospital [id number] Repository Date:2017-08-18P O [address]ATTN: [place] [address]UG: 08/18/2017 Tertiary NOT GIVENUNK [place] Insurance:SELF PAY [facility] Number: Effective Repository Date:2017-08-18 08/15/2017 ROWENA Weeks Primary ROWENA Weeks [place] [id number] Insurance:CARESOURCEP DURTSCHIDOB: Community JAMES DAYDAY sun Number: [id number] [facility] [place] [id number] Repository [address]Hmd: (330) Date:2017-07-19P O [phone] () [address]ATTN: [place] [address]TE: 08/15/2017 Secondary NOT GIVENUNK [place] Insurance:SELF PAY [facility] Number: Effective Repository Date:2017-08-15 08/07/2017 ROWENA Weeks Primary ROWENA Weeks [place] [id number] Insurance:CARESOURCEP DURTS[place]IDOB: [facility] JAMES sun Number: [id number] [id number] Repository [address]Icu: (330) Date:2017-08-07P O [phone] () [address]ATTN: [place] [address]FZ: 08/07/2017 Secondary NOT GIVENUNK [place] Insurance:SELF PAY [facility] Number: Effective Repository Date:2017-08-07 08/02/2017 ROWENA Weeks Primary ROWENA Weeks [place] [id number] Insurance:CARESOURCEP DURTSCHIDOB: Community JAMES sun Number: [id number] [facility] [place], [place] [id number] Repository 464[address]Ssm: (330) Date:2017-08-02P O [phone] () [address]ATTN: [place] [address]ZA: 08/02/2017 Secondary NOT GIVENUNK [place] Insurance:SELF PAY [facility] Number: Effective Repository Date:2017-08-02 08/01/2017 ROWENA Weeks Primary ROWENA Weeks [place] [id number] Insurance:CARESOURCEP DURTSCHIDOB: Community JAMES DAYDAY sun Number: [id number] [id number] Repository [address]Icw: (330) Date:2017-07-19P O [phone] (HP) [address]ATTN: [place] [address]NW: 08/01/2017 Secondary NOT GIVENUNK [place] Insurance:SELF PAY [facility] Number: Effective Repository Date:2017-08-01 07/24/2017 ROWENA Weeks Primary ROWENA Weeks [place] [id number] Insurance:CARESOURCEP DURTSCHIDOB: Community JAMES sun Number: [id number] [id number] Repository [address]Bpw: (330) Date:2017-07-19P O [phone] (HP) [address]ATTN: [place] [address]WV: 07/24/2017 Secondary NOT GIVENUNK [place] Insurance:SELF PAY [facility] Number: Effective Repository Date:2017-07-19 07/21/2017 ROWENA Weeks Primary ROWENA Weeks [place] [id number] Insurance:CARESOURCEP DURTSCHIDOB: Community JAMES DAYDAY sun Number: [id number] [id number] Repository 859[address]Tri: (330) Date:2017-07-21P O [phone] (HP) [address]ATTN: CLAIMS [facility] [place] [address]RK: 07/21/2017 Secondary NOT GIVENUNK [place] Insurance:SELF PAY [facility] Number: Effective Repository Date:2017-07-21 07/21/2017 ROWENA Weeks Primary ROWENA Black [id number] [place] Insurance:CARESOURCEP DURTSCHIDOB: [facility] Number: [id number] Hospital 53[address]Hpz: 330 [id number] Repository [phone] () Date:2017-07-21P O [address]ATTN: [place] [address]LB: 07/21/2017 Secondary NOT GIVENUNK [place] Insurance:SELF PAY [facility] Number: Effective Repository Date:2017-07-21 07/19/2017 ROWENA Weeks Primary ROWENA Black [id number] [place] Insurance:CARESOURCEP DURTSCHIDOB: [facility] Number: [id number] Hospital 81451Gjm: (417) [id number] Repository [phone] () Date:2017-06-21P O [address]ATTN: [place] [address]DX: 07/19/2017 Secondary NOT GIVENUNK [place] Insurance:SELF PAY [facility] Number: Effective Repository Date:2017-06-21 07/10/2017 ROWENA Peters [facility]'s DURTSCHIDOB: Insurance:CARESOURCEP DURTSCHIDOB: [facility] Number: [id number] [id number] [place] Date: [facility] [address]Zgk: ([phone]) [place], [place] [phone] () [address] 07/07/2017 ROWENA Weeks Primary ROWENA Black [id number] [place] Insurance:CARESOURCEP DURTSCHIDOB: [facility] Number: [id number] Hospital 16348Hbp: ([phone]) [id number] Repository [phone] () Date:2017-07-07P O [address]ATTN: [place] [address]DM: 07/07/2017 Secondary NOT GIVENUNK [place] Insurance:SELF PAY [facility] Number: Effective Repository Date:2017-07-07 06/21/2017 ROWENA Weeks Primary ROWENA Weeks [place] [id number] Insurance:CARESOURCEP DURTSCHIDOB: [facility] oly Number: [id number][place] [id number] Repository 754[address]Zhf: (419) Date:2017-06-21P O [phone] () [address]ATTN: [place] [address]AN: 06/21/2017 Secondary NOT GIVENUNK [place] Insurance:SELF PAY [facility] Number: Effective Repository Date:2017-06-21 06/21/2017 ROWENA Weeks Primary ROWENA Weeks [place] [id number] Insurance:CARESOURCEP DURTSCHIDOB: [facility] Number: [id number] [id number] Repository 478[address]Bzm: (419) Date:2017-06-06P O [phone] () [address]ATTN: [place] [id number]: 06/21/2017 Secondary NOT GIVENUNK [place] Insurance:SELF PAY [facility] Number: Effective Repository Date:2017-06-21 06/19/2017 ROWENA Weeks Primary NOT GIVENUNK Sofia [id number] Insurance:SELF PAY [place] Number: Effective Repository [phone]: ([phone]) Date:2017-06-02 [phone] ([phone]) 06/08/2017 ROWENA Primary ROWENA [facility] DURTSCHIDOB: Insurance:CARESOURCEP DURTSCHIDOB: [facility] olicy Number: [id number] [facility] [id number] [place], [place] Date: STREETAPT [id number]: ([phone]) [place], [place] [phone] (HP) [phone] 06/08/2017 R[facility]ENA [facility] DURTSCHIDOB: Insurance:CARESOURCEP DURTSCHIDOB: [facility] Number: [id number] Repository [facility] [id number] [place], [place] Date: STREETAPT [id number]: ([phone]) [place], [place] [phone] (HP) [phone] 06/06/2017 ROWENA Weeks Primary ROWENA Weeks [place] [id number] Insurance:CARESOURCEP DURTSCHIDOB: [facility] Number: [id number], [place] [id number] Repository [address]Abp: ([phone]) Date:2017-05-08P O [phone] () [address]ATTN: [place] [address]VY: 06/06/2017 Secondary NOT GIVENUNK [place] Insurance:SELF PAY [facility] Number: Effective Repository Date:2017-05-08 05/26/2017 ROWENA Weeks Primary ROWENA Weeks [place] [id number] Insurance:CARESOURCEP DURTSCHIDOB: [facility] Number: [id number], [place] [id number] Repository 25[address]Obb: ([phone]) Date:2017-05-10P O [phone] () [address]ATTN: [place] [address]WH: 05/26/2017 Secondary NOT GIVENUNK [place] Insurance:SELF PAY [facility] Number: Effective Repository Date:2017-05-10 05/08/2017 ROWENA Weeks Primary ROWENA Weeks [place] [id number] W Insurance:CARESOURCEP DURTSCHIDOB: [facility] Number: [id number], [place] [id number] Repository 378[address]Lkk: ([phone]) Date:2017-05-08P O [phone] () [address]ATTN: [place] [address]HV: 05/08/2017 Secondary NOT GIVENUNK [place] Insurance:SELF PAY [facility] Number: Effective Repository Date:2017-05-08 05/08/2017 [facility] ROWENA Black [id number] [place] Insurance:CARESOURCEP DURTSCHIDOB: [facility] Number: [id number] Hospital [address]Taf: [phone]) [id number] Repository [phone] () Date:2017-04-07 [address]ATTN: [place] [address]RA: 05/08/2017 Secondary NOT GIVENUNK [place] Insurance:SELF PAY [facility] Number: Effective Repository Date:2017-04-07 04/07/2017 [facility] ROWENA Black [id number] W Insurance:CARESOURCEP DURTSCHIDOB: [facility] Number: [id number][place] [id number] Repository [address]Uio: ([phone]) Date:2017-04-07 O [phone] () [address]ATTN: [place] [address]VF: 04/07/2017 Secondary NOT GIVENUNK [place] Insurance:SELF PAY [facility] Number: Effective Repository Date:2017-04-07 04/07/2017 [facility] [id number] W Insurance:CARESOURCEP DURTSCHIDOB: [facility] Number: [id number], [place] [id number] Repository [address]Vym: ([phone]) Date:2017-04-07 O [phone] () [address]ATTN: [place] [address]BV: 04/07/2017 Secondary NOT GIVENUNK [place] Insurance:SELF PAY [facility] Number: Effective Repository Date:2017-04-07 03/21/2017 ROWENA Primary ROWENAMELVINA Black [id number] W Insurance:CARESOURCEP DURTSCHIDOB: [facility] Number: [id number], [place] [id number] Repository [address]Aoi: ([phone]) Date:2017-03-21P O [phone] () [address]ATTN: [place] [address]JN: 03/21/2017 Secondary NOT GIVENUNK [place] Insurance:SELF PAY [facility] Number: Effective Repository Date:2017-03-21 03/21/2017 ROWENA Primary ROWENAMELVINA [id number] W Insurance:CARESOURCEP DURTSCHIDOB: [facility] BRINA sun Number: [id number], [place] [id number] Repository [address]Quo: ([phone]) Date:2017-03-20P O [phone] () [address]ATTN: [place] [address]AW: 03/21/2017 Secondary NOT GIVENUNK [place] Insurance:SELF PAY [facility] Number: Effective Repository Date:2017-03-20 03/10/2017 ROWENA Primary NOT GIVENUNK [place] [id number] W Insurance:SELF PAY [place] Number: Effective Repository [phone]: ([phone] Date:2017-02-27 [phone] ()
== END 2018-03-10 09:00 | disposition home or self-care (01) ==
LOC: ED 09:18 → MS3 09:58
PROVIDERS: Admitting Provider Surgery; Emergency Provider Emergency Medicine; Family Provider Internal Medicine; PCP Internal Medicine; Referring Provider Surgery; Visit Provider Surgery
PROC: (CPT 47610; principal; 2018-03-09 14:40)
DX: K80.10 Calculus of gallbladder with chronic cholecystitis without obstruction (principal); F17.290 Nicotine dependence, other tobacco product, uncomplicated
CPT/HCPCS: 47563; 74300; 76000; 76705; 80053; 81001; 83690; 84703; 85025; 88304; 93005; 96374; 96375; 96376; 99218; 99284; J7030; A4216; G0378; J2405

== ENCOUNTER 2018-03-11 11:09 | Emergency (ER) | payer MEDICAID, SELFPAY ==
[2018-03-09 13:20] VITALS: BMI 31.3
[2018-03-11 11:11] VITALS: BP 122/70; PULSE 72; RESP 17; TEMP 36.8; O2SAT 100; BMI 31.2
--- NOTE | 2018-03-11 11:25 | ED.VISSUMM ---
- ER Visit Summary Date of Service: 03/11/18 Chief Complaint: History of Present Illness: The patient is a 27 F status post laparoscopic cholecystectomy on 03/09, discharged on 119 presenting with right upper quadrant abdominal pain. She states that it has been gradually worse since the surgery. No chest pain. No shortness of breath. No lower extremity pain or swelling. She is nauseated but not vomiting. Physical Examination: Those are within normal limits. Not in distress. Pulse oximetry 100%. Abdomen somewhat distended. Incisions are clean and dry. No significant tenderness. No rebound or guarding. Test Results: CBC, BMP, hepatic, and lipase all within normal limits Emergency Department Course and Treatment: She was given IV morphine and her pain resolved. No evidence of acute surgical abdomen. No chest pain or shortness of breath to suggest pulmonary embolism. Treatment Plan: I discussed the case with Dr. Christine Coombs and reviewed the laboratory studies. She agrees that imaging is not indicated at this time and recommended that she follow up early this week and that we give her a longer acting pain medicine to cover her for today. She was given a 10 mg OxyContin prior to discharge. She looks well and is resting comfortably. Pain is markedly improved. Disposition: Home stable Impression: Initial encounter postoperative abdominal pain This note was generated with [employer] dictation software. It may contain incorrect words, spelling, and punctuation that were not noted in review of the chart prior to signing ED Disposition - Plan for ED Patient: Chief Complaint: Abd Pain Instructions: Wound Care Referrals: Christine Coombs MD [STAFF PHYSICIAN] -
--- NOTE | 2018-03-11 11:29 | ED.DCSUM_ITS ---
- ER Visit Summary Date of Service: 03/11/18 Chief Complaint: History of Present Illness: The patient is a 27 F status post laparoscopic cholecystectomy on 03/09, discharged on 119 presenting with right upper quadrant abdominal pain. She states that it has been gradually worse since the surgery. No chest pain. No shortness of breath. No lower extremity pain or swelling. She is nauseated but not vomiting. Physical Examination: Those are within normal limits. Not in distress. Pulse oximetry 100%. Abdomen somewhat distended. Incisions are clean and dry. No significant tenderness. No rebound or guarding. Test Results: CBC, BMP, hepatic, and lipase all within normal limits Emergency Department Course and Treatment: She was given IV morphine and her pain resolved. No evidence of acute surgical abdomen. No chest pain or shortness of breath to suggest pulmonary embolism. Treatment Plan: I discussed the case with Dr. Christine Coombs and reviewed the laboratory studies. She agrees that imaging is not indicated at this time and recommended that she follow up early this week and that we give her a longer acting pain medicine to cover her for today. She was given a 10 mg OxyContin pr ior to discharge. She looks well and is resting comfortably. Pain is markedly improved. Disposition: Home stable Impression: Initial encounter postoperative abdominal pain This note was generated with [employer] dictation software. It may contain incorrect words, spelling, and punctuation that were not noted in review of the chart prior to signing ED Disposition - Plan for ED Patient: Chief Complaint: Abd Pain Instructions: Wound Care Referrals: Christine Coombs MD [STAFF PHYSICIAN] -
[2018-03-11] MEDS: Ondansetron 4 MG/2 ML Vial IV (11:37)
[2018-03-11] MEDS: 0.9% Normal Saline 1,000 ML 1000 ML IV (11:38)
[2018-03-11] MEDS: Morphine 4 MG/ML Syringe IV (11:38)
[2018-03-11 11:52] LABS: Absolute Lymphocyte Count 3.61 X10^3/ul (0.83-4.51); Absolute Neutrophil Count 3.2 X10^3/uL (2.0-7.7); Basophil# 0.02 X10^3/uL; Basophil% 0.3 % (0-1); Eosinophil# 0.04 X10^3/uL; Eosinophils% 0.5 % (0-5); Hematocrit 34.2 % (37-47); Hemoglobin 10.7 g/dl (12.0-15.0); Lymphocyte # 3.61 X10^3/ul (4.0); Lymphocyte % 48.5 % (19-41); Mean Corp Hgb Conc 31.3 g/gl (32-36); Mean Corpuscular Volume 86.1 fL (81-99); Monocyte# 0.59 X10^3/uL; Monocyte% 7.9 % (0-10); Neutrophil # 3.17 X10^3/uL (2.7-7.7); Neutrophil % 42.7 % (47-70); Platelet Count 313 K/mm3 (150-450); RBC Distribution Width CV 13.1 % (11.6-14.6); RBC Distribution Width SD 40.2 fl (35.1-43.9); Red Blood Count 3.97 M/mm3 (4.2-5.4); White Blood Count 7.4 K/mm3 (4.4-11.0)
[2018-03-11 11:58] LABS: POSITIVE COUNT NO; POSITIVE DIFFERENTIAL NO; POSITIVE MORPHOLOGY NO
[2018-03-11 12:03] LABS: AST(SGOT) 25 U/L (15-37); Alanine Aminotransfer ALT/SGPT 36 U/L (13-56); Albumin, Serum 3.5 g/dL (3.2-5.0); Alkaline Phosphatase 57 U/L (45-117); Anion Gap 8 (5-15); BUN 13 mg/dL (7-18); BUN/Creat Ratio 16.9 RATIO (10-20); Calcium,Total 8.3 mg/dL (8.5-10.1); Chloride 105 mmol/L (98-107); Creatinine, Serum 0.77 mg/dL (0.55-1.02); EST Glomerular Filtration Rate 94 mL/min (>60); Est Glom Filt Rate - Afr Amer 114 mL/min (>60); Estimated Creatinine Clearance 93.09 ml/min; Globulin 3.9 g/dL (2.2-4.2); Glucose 74 mg/dL (74-106); Lipase 120 U/L (73-393); Potassium 3.4 mmol/L (3.5-5.1); Protein, Total 7.4 g/dL (6.4-8.2); Sodium Level 139 mmol/L (136-145)
[2018-03-11 12:09] VITALS: BP 120/78; PULSE 64; RESP 16; TEMP 36.8; O2SAT 100
[2018-03-11] MEDS: oxyCODONE HCl Cr 10 MG Tablet PO (13:10)
--- OUTSIDE RECORDS SUMMARY | 2018-05-14 11:16 | XMS RPT_ITS ---
:1990 Author Organization OHIP Support Name Relationship Address Phone JANELLE JAQUEZ Unavailable [address] + [place] [address] [facility] Unavailable [address] + [place] [address] JANELLE JAQUEZ Unavailable [address] + [place] [address] [facility] Unavailable [address] + [place] [address] JANELLE JAQUEZ Unavailable [address] + [place] [address] [facility] Unavailable [address] + [place] [address] JANELLE JAQUEZ Unavailable [address] + [place] [address] [facility] Unavailable [address] + [place] [address] JANELLE JAQUEZ Unavailable [address] + [place] [address] [facility] Unavailable [address] + [place] [address] PRISCILA JAQUEZANNE Unavailable [address] + [place] [address] [facility] Unavailable [address] + [place] [address] DURTSLUIS JANELLE Unavailable [address] + [place] [address] [facility] Unavailable [address] + [place] [address] DURTSCHI, JANELLE Unavailable [address] + [place] [address] [facility] Unavailable [address] + [place] [address] DURTSCHI, JANELLE Unavailable [address] + [place] [address] [facility] Unavailable [address] + [place] [address] DURTSLUIS JANELLE Unavailable [address] + [place] [address] [facility] Unavailable [address] + [place] [address] GISELE JANELLE Unavailable [address] + [place] [address] [facility] Unavailable [address] + [place] [address] GISELE JANELLE Unavailable [address] + [place] [address] [facility] Unavailable [address] + [place] [address] ECTOR, CHRISTINE Unavailable [address] [place] [address] [facility] Unavailable [address] + [place] [address] DURMINDY JANELLE Unavailable [address] + [place] [address] [facility] Unavailable [address] + [place] [address] DURTSCHI JANELLE Unavailable [address] + [place] [address] [facility] Unavailable [address] + [place] [address] GISELE JANELLE Unavailable [address] + [place] [address] [facility] Unavailable [address] + [place] [address] JANELLE JAQUEZ Unavailable [address] + [place] [address] [facility] Unavailable [address] + [place] [address] JANELLE JAQUEZ Unavailable [address] + [place] [address] [facility] Unavailable [address] + [place] [address] JANELLE JAQUEZ Unavailable [address] + [place] [address] [facility] Unavailable [address] + [place] [address] JANELLE JAQUEZ Unavailable [address] + [place] [address] [facility] Unavailable [address] + [place] [address] ECTOR, CHRISTINE Unavailable [address] [place] [address] [facility] Unavailable [address] + [place] [address] ECTOR, CHRISTINE Unavailable [address] [place] [address] [facility] Unavailable [address] + [place] [address] ECTOR, CHRISTINE Unavailable [address] [place] [address] [facility] Unavailable [address] + [place] [address] ECTOR, CHRISTINE Unavailable [address] [place] [address] [facility] Unavailable [address] + [place] [address] BROTHERS, SUZANNE Unavailable Unavailable + ROWENA JAQUEZ Unavailable [address] [facility] + [place] [address] ECTOR, CHRISTINE Unavailable [address] [place] [address] [facility] Unavailable [address] + [place] [address] ECTOR, CHRISTINE Unavailable [address] [place] [address] [facility] Unavailable [address] + [place] [address] ECTOR, CHRISTINE Unavailable [address] [place] [address] [facility] Unavailable [address] + [place] [address] ECTOR, CHRISTINE Unavailable [address] [place] [address] [facility] Unavailable [address] + [place] [address] ECTOR, CHRISTINE Unavailable [address] [place] [address] [facility] Unavailable [address] + [place] [address] ECTOR, CHRISTINE Unavailable [address] [place] [address] [facility] Unavailable [address] + [place] [address] ECTOR, CHRISTINE Unavailable [address] [place] [address] [facility] Unavailable [address] + [place] [address] ECTOR, CHRISTINE Unavailable [address] [place] [address] [facility] Unavailable [address] + [place] [address] ECTOR, CHRISTINE Unavailable [address] [place] [address] [facility] Unavailable [address] + [place] [address] ECTOR, CHRISTINE Unavailable [address] [place] [address] [facility] Unavailable [address] + [place] [address] ECTOR, CHRISTINE Unavailable [address] [place] [address] [facility] Unavailable [address] + [place] [address] BROTHERS, SUZANNE Unavailable Unavailable + DURTSCHI, ROWENA Unavailable [address] [facility] + [place] [address] ECTOR, CHRISTINE Unavailable [address] + [address] [place] [address] [facility] Unavailable [address] + [place] [address] + [place] [address] + [place] [address] + [place] [address] BROTHERS, SUZANNE Unavailable Unavailable + DURTSCHI, ROWENA Unavailable [address] [facility] + [place] [address] BROTHERS, SUZANNE Unavailable Unavailable + DURTSCHI, ROWENA Unavailable [address] [facility] + [place] [address] + [place] [address] + [place] [address] [facility] Unavailable [address] + [place] [address] [facility] [address]available [address] + [place] [address] [address] Un[address] + [place] [address] [facility] Unavailable [address] + [place] [address] IFOR[facility] Unavailable [address] [phone] [place] [address] IFORCE Unavailable [address] [facility] [phone] [place] [address] IFORCE Unavailable [address] [phone] [place] [address] Care Team Providers Name Role Phone SHANTHI FELTON Referring Unavailable GANTA, GONZALES C Primary Care Unavailable JOSE CORCORAN Attending Unavailable JOSE CORCORAN Attending Unavailable SHANTHI FELTON Referring Unavailable GANTA, GONZALES C Primary Care Unavailable SHILOH CORTES Attending Unavailable MARCANTHONYSHANTHI Referring Unavailable GANTA, GONZALES C Primary Care Unavailable JOSE CORCORAN Attending Unavailable SHANTHI FELTON Referring Unavailable GANTA, GONZALES C Primary Care Unavailable CHRISTINE COOMBS Attending Unavailable CHRISTINE COOMBS Referring Unavailable Ganta, Gonzales Primary Care Unavailable Christine Coombs Admitting Unavailable Christine Coombs Attending Unavailable Christine Coombs Referring Unavailable Ganta, Gonzales Primary Care Unavailable Cristobal Choudhury Attending Unavailable EdenLyn Attending Unavailable Ganta, Gonzales Referring Unavailable Ganta, Gonzales Primary Care Unavailable EldaLyn Attending Unavailable Eden, Lyn Referring Unavailable Ganta, Gonzales Primary Care Unavailable Marcanthony, Shanthi Attending Unavailable Marcanthony, Shanthi Referring Unavailable Ganta, Gonzales Primary Care Unavailable MarcanthonyShanthi Attending Unavailable Ganta, Gonzales Referring Unavailable Marcanthony, Shanthi Attending Unavailable Ganta, Gonzales Referring Unavailable Marcanthony, Shanthi Attending Unavailable Ganta, Gonzales Primary Care Unavailable Marcanthony, Shanthi Referring Unavailable Marcanthony, Shanthi Attending Unavailable Marcanthony, Shanthi Referring Unavailable Ganta, Gonzales Primary Care Unavailable Marcanthony, Shanthi Attending Unavailable Ganta, Gonzales Referring Unavailable ASSESSMENT, HEALTH RISK Attending Unavailable Ganta, Gonzales Primary Care Unavailable EdenRadhay Attending Unavailable Ganta, Gonzales Referring Unavailable Ganta, Gonzales Primary Care Unavailable EdenRadhay Attending Unavailable Ganta, Gonzales Primary Care Unavailable Elda, Lyn Referring Unavailable Leif Hauser Attending Unavailable Primay Care Physicia, No Primary Care Unavailable EldaLyn Attending Unavailable Ganta, Gonzales Referring Unavailable Primay Care Physicia, No Primary Care Unavailable Marcanthony, Shanthi Attending Unavailable Marcanthony, Shanthi Referring Unavailable Primay Care Physicia, No Primary Care Unavailable Elda, Lyn Attending Unavailable Elda, Lyn Referring Unavailable Primay Care Physicia, No Primary Care Unavailable Marcanthony, Shanthi Attending Unavailable Primay Care Physicia, No Referring Unavailable Primay Care Physicia, No Primary Care Unavailable Primay Care Physicia, No Primary Care Unavailable Marcanthony, Shanthi Referring Unavailable Thelma Conroy Attending Unavailable Marcanthony, Shanthi Attending Unavailable Primay Care Physicia, No Referring Unavailable Primay Care Physicia, No Primary Care Unavailable Primay Care Physicia, No Primary Care Unavailable Dion Spencer Attending Unavailable Marcanthony, Shanthi Attending Unavailable Primay Care Physicia, No Referring Unavailable Primay Care Physicia, No Primary Care Unavailable Tomás Castle Attending Unavailable Ganta, Gonzales Primary Care Unavailable Marcanthony, Shanthi Attending Unavailable Ganta, Gonzales Primary Care Unavailable Marcanthony, Shanthi Attending Unavailable Primay Care Physicia, No Referring Unavailable Ganta, Gonzales Primary Care Unavailable Marcanthony, Shanthi Attending Unavailable EldaLyn Attending Unavailable Primay Care Physicia, No Referring Unavailable Ganta, Gonzales Primary Care Unavailable Marcanthony, Shanthi Attending Unavailable Primay Care Physicia, No Referring Unavailable Marcanthony, Shanthi Attending Unavailable Marcanthony, Shanthi Referring Unavailable Ganta, Gonzales Primary Care Unavailable Elda, Lyn Attending Unavailable Ganta, Gonzales Primary Care Unavailable Marcanthony, Shanthi Admitting Unavailable Marcanthony, Shanthi Attending Unavailable Ganta, Gonzales Primary Care Unavailable Marcanthony, Shanthi Referring Unavailable Marcanthony, Shanthi Attending Unavailable Ganta, Gonzales Referring Unavailable Ganta, Gonzales Primary Care Unavailable Marcanthony, Shanthi Attending Unavailable Primay Care Physicia, No Referring Unavailable Marcanthony, Shanthi Attending Unavailable Marcanthony, Shanthi Referring Unavailable Ganta, Gonzales Primary Care Unavailable Marcanthony, Shanthi Attending Unavailable Primay Care Physicia, No Referring Unavailable Ganta, Gonzales Primary Care Unavailable Ganta, Gonzales Primary Care Unavailable Marcanthony, Shanthi Attending Unavailable Marcanthony, Shanthi Attending Unavailable Ganta, Gonzales Primary Care Unavailable Marcanthony, Shanthi Consulting Unavailable Marcanthony, Shanthi Attending Unavailable Ganta, Gonzales Referring Unavailable Ganta, Gonzales Primary Care Unavailable Marcanthony, Shanthi Admitting Unavailable Marcanthony, Shanthi [...] Primary Care Unavailable Marcanthony, Shanthi Consulting Unavailable Lyn Schroeder Attending Unavailable Ganta, Gonzales Referring Unavailable Ganta, Gonzales Primary Care Unavailable Ganta, Gonzales Primary Care Unavailable Salvatore Mcgill Attending Unavailable Marcanthony, Shanthi Attending Unavailable Ganta, Gonzales Referring Unavailable Marcanthony, Shanthi Attending Unavailable Ganta, Gonzales Primary Care Unavailable Marcanthony, Shanthi Referring Unavailable Ganta, Gonzales Primary Care Unavailable MartinezCarl Attending Unavailable Manny Davis Admitting Unavailable Marcanthony, Shanthi Attending Unavailable Ganta, Gonzales Referring Unavailable PROBLEMS PROBLEMS DATE TYPE CONDITION / CODE ATTENDING STATUS SOURCE 03/12/2018 Unknown Z09 - Encounter for Christine Coombs Active [facility] follow-up Community examination after Hospital completed treatment Repository for conditions other than malignant neoplasm / Z09(ICD-10) 11/25/2017 Unknown Z12.4 - Encounter Marcanthony, Active [facility] for screening for [facility] malignant neoplasm [facility] of cervix / Repository Z12.4(ICD-10) 11/24/2017 Unknown Z39.2 - Encounter Marcanthony, Active [place] for routine [facility] follow-up Hospital / Z39.2(ICD-10) Repository 11/15/2017 Unknown K08.9 - Disorder of Salvatore Mcgill Active [place] teeth and supporting Community structures, Hospital unspecified / Repository K08.9(ICD-10) 10/15/2017 Unknown G89.18 - Other acute Marcanthony, Active [facility] postprocedural pain [facility] / G89.18(ICD-10) Hospital Repository 10/03/2017 Unknown O09.90 - Supervision Marcanthony, Active [facility] of high risk [facility] , Hospital unspecified, Repository unspecified trimester / O09.90(ICD-10) 10/03/2017 Unknown Z98.891 - History of Marcanthony, Active [place] uterine scar from [facility] previous surgery / Hospital Z98.891(ICD-10) Repository 10/03/2017 Unknown O36.63X0 - Maternal Marcanthony, Active [facility] care for excessive [facility] growth, third Hospital trimester, not Repository applicable or unspecified / O36.63X0(ICD-10) 10/03/2017 Unknown O09.893 - Marcanthony, Active [facility] Supervision of other [facility] high risk Hospital pregnancies, third Repository trimester / O09.893(ICD-10) 10/03/2017 Unknown O23.43 - Unspecified Marcanthony, Active [facility] infection of urinary [facility] tract in , Hospital third trimester / Repository O23.43(ICD-10) 10/03/2017 Unknown F32.9 - Major Marcanthony, Active [place] depressive disorder, [facility] single episode, Hospital unspecified / Repository F32.9(ICD-10) 10/03/2017 Unknown E28.2 - Polycystic Marcanthony, Active [facility] ovarian syndrome / [facility] E28.2(ICD-10) Hospital Repository 10/03/2017 Unknown O99.013 - Anemia Marcanthony, Active [place] complicating [facility] , third Hospital trimester / Repository O99.013(ICD-10) 09/25/2017 Unknown Z34.90 - Encounter Marcanthony, Active [facility] for supervision of [facility] normal , Hospital unspecified, Repository unspecified trimester / Z34.90(ICD-10) 09/21/2017 Unknown O44.20 - Partial Eden, Lyn Active [facility] placenta previa NOS Community or without Hospital hemorrhage, Repository unspecified trimester / O44.20(ICD-10) 09/13/2017 Unknown O36.60X0 - Maternal Elda, Lyn Active [facility] care for excessive [facility] growth, Hospital unspecified Repository trimester, not applicable or unspecified / O36.60X0(ICD-10) 09/13/2017 Unknown O99.019 - Anemia Elda, Lyn Active [facility] complicating Community , Hospital unspecified Repository trimester / O99.019(ICD-10) 08/29/2017 Unknown Z23 - Encounter for Marcanthony, Active [place] immunization / [facility] Z23(ICD-10) Hospital Repository 09/04/2017 Unknown O60.03 - Marcanthony, Active [place] labor without [facility] delivery, third Hospital trimester / Repository O60.03(ICD-10) 09/04/2017 Unknown Z3A.31 - 31 weeks Marcanthony, Active [place] gestation of [facility] / Hospital Z3A.31(ICD-10) Repository 08/31/2017 Unknown S09.93XA - Ungur, Remus Active [facility] Unspecified injury Community of face, initial Hospital encounter / Repository S09.93XA(ICD-10) 08/15/2017 Unknown O99.012 - Anemia Marcanthony, Active [place] complicating [facility] , second Hospital trimester / Repository O99.012(ICD-10) 08/16/2017 Unknown O44.00 - Complete Elda, Lyn Active [facility] placenta previa NOS Community or without Hospital hemorrhage, Repository unspecified trimester / O44.00(ICD-10) 07/21/2017 Unknown O09.899 - Marcanthony, Active [place] Supervision of other [facility] high risk Hospital pregnancies, Repository unspecified trimester / O09.899(ICD-10) 07/21/2017 Unknown Z67.91 - Unspecified Marcanthony, Active [facility] blood type, Rh [facility] negative / Hospital Z67.91(ICD-10) Repository 06/21/2017 Unknown Z3A.23 - 23 weeks Eden, Lyn Active [facility] gestation of Community / Hospital Z3A.23(ICD-10) Repository 06/21/2017 Unknown O09.891 - Elda, Lyn Active [facility] Supervision of other [facility] high risk Hospital pregnancies, first Repository trimester / O09.891(ICD-10) 06/21/2017 Unknown O23.41 - Unspecified Eden, Lny Active [facility] infection of urinary Community tract in , Hospital first trimester / Repository O23.41(ICD-10) 04/07/2017 Unknown N92.6 - Irregular Marcanthony, Active [place] menstruation, [facility] unspecified / Hospital N92.6(ICD-10) Repository 03/21/2017 Unknown R30.0 - Dysuria / Elda, Molly Active [place] R30.0(ICD-10) [facility] Repository PROCEDURES PROCEDURES No Procedure Records FoundRESULTS RESULTS PROGRESS Observed: 03/16/2018 Status: COMPLETED Source: [place] 8:41 AM [facility] REPOSITORY HNO ID: [id number] Author: Christine Coombs Service: (none) Author Type: Physician Type: Progress Notes Filed: 03/16/2018 8:44 AM Note Text: Miguel is s/p laparoscopic cholecystectomy with cholangiograms at [facility] on 03/09/18. This was done for cholelithiasis [...] care. CNOV Observed: 03/16/2018 Status: COMPLETED Source: [place] 8:40 AM [facility] REPOSITORY Office Visit (GENSWS) ROWENA JAQUEZ ([id number]) 1990 F Date Time Provider Department 03/16/18 8:40 AM CHRISTINE COOMBS During your visit today, we recorded the following information about you: Christine Coombs MD 03/16/2018 8:44 AM Signed Miguel is s/p laparoscopic cholecystectomy with cholangiograms at [facility] on 03/09/18. This was done for cholelithiasis [...] for medical care. Referring Provider: CHRISTINE COOMBS [[id number]] Allergies As of Date: 03/16/2018 Noted Allergy [...] 03/16/18 CNCO Observed: 03/15/2018 Status: COMPLETED Source: [place] 12:00 AM [facility] REPOSITORY Letter Text Department of General Surgery Dr. Christine Coombs [address] [place], [place] [address] 03/15/2018 TO WHOM IT MAY CONCERN: This is to confirm that Rowena Jaquez has an appointment on 03/16/2018 at 0840 at the [facility] in the Department of General Surgery with Dr. Christine Coombs and may return to work on 03/16/2018 with a lifting restriction of nothing greater than 20 pounds for the next week. Sincerely yours, Dr. Christine Coombs 12 LEAD ELECTROCARDIOGRAM Observed: 03/14/2018 Status: F Source: [place] 1:57 PM [facility] REPOSITORY [facility] Cardiovascular Services [address] [place] [address] 12 Lead EKG 03/09/18 1346 MR#: [id number] Acct: [id number] Name: ROWENA JAQUEZ Rep #: [id number] : 1990 27 From: Roger Montes De Oca MD Attending Dr: Christine Coombs MD Status: DIS NI Ordering Dr: Christine Coombs MD Date: 03/09/18 Location: [facility] [place] Sex: F C Admitted: 03/09/18 Test Reason : PRE OP Blood Pressure : / mmHG Vent. Rate : 067 BPM Atrial Rate : 067 BPM P-R Int : 152 ms QRS Dur : 090 ms QT Int : 424 ms P-R-T Axes : 031 057 037 degrees QTc Int : 448 ms Normal sinus rhythm Normal ECG Confirmed by WIN BOLAND, ROGER ([id number]), desk editor ABE MEYER ([id number]) on 03/14/2018 1:56:53 PM Referred By: Christine Coombs Confirmed By:ROGER MONTES DE OCA MD 03/14/18 1356 Date Roger Montes De Oca MD CC: Gonzales Goddard MD; Christine Coombs MD Signed EMERGENCY DEPARTMENT Observed: 03/11/2018 Status: F Source: [place] SUMMARY 12:49 PM [facility] REPOSITORY [facility] Medical Records Department [address] [place] [address] Emergency Department Summary 03/11/18 1125 MR#: [id number] Acct: [id number] Name: EDDIE JAQUEZA Desi Rep #: [id number] : 1990 27 From: Jordan Choudhury MD [...] abdominal pain This note was generated with Carbonite dictation software. It may contain incorrect words, [...] your Primary Care Provider. Call [facility] ([phone]) or report to the closest Emergency Room. Call 911 if necessary. 03/11/18 1249 <Electronically signed by Jordan Choudhury MD> Date Jordan Choudhury MD Cosigner Signature (If Indicated): Date CC: Gonzales Goddard MD CBC W/DIFF, AUTOMATED Collected: 03/11/2018 Status: F Source: [place] 11:40 AM [facility] REPOSITORY TYPE CODE TESTS RESULT OUT OF [...] Lymph 3.61 Performed By: #### L100.0100 #### [facility] [address] [place], [address] BASIC METABOLIC Collected: 03/11/2018 Status: F Source: [place] PROFILE (BMP) 11:40 AM [facility] REPOSITORY TYPE CODE TESTS RESULT OUT OF [...] Performed By: #### L500.2500, L500.3400, L501.2450 #### [facility] [address] [place], [address] LIVER PROFILE Collected: 03/11/2018 Status: F Source: [place] 11:40 AM [facility] REPOSITORY TYPE CODE TESTS RESULT OUT OF [...] Performed By: #### L500.2500, L500.3400, L501.2450 #### [facility] [address] [place], [address] LIPASE Collected: 03/11/2018 Status: F Source: [place] 11:40 AM [facility] REPOSITORY TYPE CODE TESTS RESULT OUT OF RANGE REFERENCE UNITS LAB L501.2450 73-393 U/L Normal LIPASE 120 Performed By: #### L500.2500, L500.3400, L501.2450 #### [facility] [address] [place], [address] OPERATIVE REPORT Observed: 03/09/2018 Status: F Source: [place] 4:17 PM [facility] REPOSITORY [facility] Medical Records Department [address] [place] [address] Operative Report 03/09/18 1546 MR#: [id number] Acct: [id number] Name: ROWENA JAQUEZ Rep #: [id number] : 1990 27 From: Christine Coombs MD PCP: Gonzales Goddard MD Status: ADM NI Y Location: [place] [address] Report of Operation Date of Procedure: 03/09/18 Pre-Operative Diagnosis: cholelithiasis Post-Operative Diagnosis: cholelithiasis, chronic cholecystitis Surgery/Procedure Performed:: laparoscopic cholecystectomy with cholangiograms Description of Surgical Findings:: normal cholangiogram, stones in gallbladder yoga coordinator: Maddie Reyes Type of Anesthesia:: General Anesthesiologist: [...] The periumbilical fascia was approximated with a [id number] 0 vicryl suture. All skin incision were [...] DISCHARGE INSTRUCTION Observed: 03/09/2018 Status: F Source: [place] 4:07 PM [facility] REPOSITORY [facility] Medical Records Department [address] [place] [address] Instructions for Home/Discharge Instructions 03/09/18 1457 MR#: [id number] Acct: [id number] Name: ROWENA JAQUEZ Rep #: [id number] : 1990 27 From: Christine Coombs MD [...] prn pain Allergies/Adverse Reactions: Allergies acetaminophen [From [place]] Allergy (Verified 03/09/18 06:52) Hives hydrocodone [From [place]] Allergy (Verified 03/09/18 06:52) Hives naproxen Allergy [...] for date and time, thank you 03/09/18 1989 <Electronically signed by Christine Coombs MD> Date Christine Coombs MD CC: Gonzales Goddard MD Signed EMERGENCY DEPARTMENT Observed: 03/09/2018 Status: F Source: [place] SUMMARY 3:45 PM [facility] REPOSITORY [facility] Medical Records Department [address] [place] [address] Emergency Department Summary 03/09/18 0918 MR#: [id number] Acct: [id number] Name: EDDIE JAQUEZMatti Weeks Rep #: [id number] : 1990 27 From: Salvatore Mcgill MD PCP: Gonzales Goddard MD Status: ADM NI - ER Visit Summary Date of Service: 03/09/18 Chief Complaint: Abdominal pain History of Present Illness: The patient is a 27 F abdominal pain since yesterday. Worse after eating [place] food. The pain is sharp and radiates [...] Biliary colic This note was generated with Carbonite dictation software. It may contain incorrect words, spelling, and punctuation that were not noted in review of the chart prior to signing ED Disposition - Plan for ED Patient: Chief Complaint: Abd Pain Referrals: Gonzlaes Goddard MD [Primary Care Provider] - What to do if you have Problems For any increased pain, shortness of breath, bleeding, nausea or vomiting, chest pain, or any unexpected problems, contact your Primary Care Provider. Call [facility] ([phone]) or report to the closest Emergency Room. Call 911 if necessary. 03/09/18 6453 <Electronically signed by Salvatore Mcgill MD> Date Salvatore Mcgill MD Cosigner Signature (If Indicated): Date CC: Gonzales Goddard MD GALLBLADDER Observed: 03/09/2018 Status: F Source: [place] 3:00 PM [facility] REPOSITORY Patient: ROWENA JAQUEZ : 1990 (27/) Acct Num: [id number] Phys: Malvin BOLAND,Christine Unit Num: [id number] Loc: MS3 [id number] Specimen: [id number] Received: 03/09/181603 Spec Type: GALLBLADDE [...] thickness and is free of mass lesions. Nurse Private Duty sections of the gallbladder and the cystic duct are submitted in one cassette. / AM:frankie 03/12/18 TC:3 CPT: 50006 HEADER OPERATION: Laparoscopic, cholecystectomy and intraoperative cholangiogram PRE-OP DIAGNOSIS: Cholelithiasis TISSUE SUBMITTED: Gallbladder MICROSCOPIC DESCRIPTION Slides are reviewed. MICROSCOPIC DIAGNOSIS Gallbladder, cholecystectomy: Cholesterolosis, chronic cholecystitis and cholelithiasis. Benign pericystic lymph node. AM:frankie 03/13/18 Signed Roberto Maxwell, 03/13/18 <signature on file> Performed By: #### PGALL #### [facility] [address] [place] [address]. [place], [address] HISTORY AND PHYSICAL Observed: 03/09/2018 Status: F Source: [place] EXAM 2:44 PM [facility] REPOSITORY [facility] Medical Records Department [address] [place] [address] History and Physical 03/09/18 1437 MR#: [id number] Acct: [id number] Name: ROWENA JAQUEZ Rep #: [id number] : 1990 27 From: Christine Coombs MD PCP: Gonzales Goddard MD Status: ADM NI Y Location: NC3 [id number] History and Physical Date of Admission: 03/09/18 [...] use yes Works in environmental services in [employer] Review of Systems: General - denies fevers [...] in the right upper quadrant with positive Garcia's sign. Normal bowel sounds Extremities no calf [...] Status: F Source: [place] R,INITIAL 9:46 AM [facility] REPOSITORY [facility] Imaging Services [address] [place] [address] Cholangiogram/ O R,Initial MR#: [id number] Acct: [id number] Name: ROWENA JAQUEZ Rep #: [id number] : 1990 F 27 From: Segundo Javier MD PCP: Gonzales Goddard MD Status: ADM NI Study: Cholangiogram/ O R,Initial Date of Exam: 03/09/18 Exam# [id number] Ordering Dr: Christine Coombs MD PROCEDURE: INTRAOPERATIVE [...] CC: Gonzales Goddard MD; Christine Coombs MD Fiscal Clerk: Signed URINALYSIS, COMPLETE Collected: 03/09/2018 Status: F Source: [place] 9:11 AM [facility] REPOSITORY Order Comment: How was Urine Obtained? [...] URINE SEEN Performed By: #### L400.0001 #### [facility] [address] [facility] [place], [address] GALLBLADDER Observed: 03/09/2018 Status: F Source: [place] 7:23 AM [facility] REPOSITORY [facility] Imaging Services [address] [place] [address] Gallbladder MR#: [id number] Acct: [id number] Name: ROWENA JAQUEZ Rep #: [id number] : 1990 F 27 From: Memo Carroll MD PCP: Gonzales Goddard MD Status: REG ER Study: Gallbladder Date of Exam: 03/09/18 Exam# [id number] Ordering Dr: Salvatore Mcgill MD STUDY: ABDOMINAL [...] Memo Carroll MD at 8:51 EST Tel [phone], Service support , CC: Gonzales Goddard MD; Salvatore Mcgill MD Fiscal Clerk: Signed CBC W/DIFF, AUTOMATED Collected: 03/09/2018 Status: F Source: [place] 7:04 AM [facility] REPOSITORY TYPE CODE TESTS RESULT OUT OF [...] Lymph 3.22 Performed By: #### L100.0100 #### [facility] [address] [place], [address] COMPREHENSIVE METABOLIC Collected: 03/09/2018 Status: F Source: [facility] 7:04 AM [facility] REPOSITORY TYPE CODE TESTS RESULT OUT OF [...] 8 Performed By: #### L500.4050, L501.2450 #### [facility] [address] [place], [address] LIPASE Collected: 03/09/2018 Status: F Source: [place] 7:04 AM [facility] REPOSITORY TYPE CODE TESTS RESULT OUT OF RANGE REFERENCE UNITS LAB L501.2450 73-393 U/L Normal LIPASE 189 Performed By: #### L500.4050, L501.2450 #### [facility] [address] [place], [address] ,SERUM,HCG QUALI. Collected: Status: F Source: [place] 03/09/2018 7:04 AM [facility] REPOSITORY TYPE CODE TESTS RESULT OUT OF REFERENCE UNITS RANGE LAB L700.7000 0-9 Nonpreg Negative Normal HCGSQUAL NEGATIVE LAB L700.6700 =>Qualitative mIU/mL Normal HCG Qual < 1 triggr Performed By: #### L700.6800 #### [facility] [address] [place], [address] EMERGENCY DEPARTMENT Observed: 12/29/2017 Status: F Source: [place] SUMMARY 9:13 AM [facility] REPOSITORY [facility] Medical Records Department [address] [place] [address] Emergency Department Summary 12/29/17 0855 MR#: [id number] Acct: [id number] Name: ROWENA JAQUEZ Rep #: [id number] : 1990 27 From: Carl Martinez MD [...] symptoms of either. She works in the [employer] department at [employer]. She denies history of trauma. She [...] initial encounter This note was generated with Carbonite dictation software. It may contain incorrect words, [...] gone. Your prescription was electronically transmitted to [facility] your preferred pharmacy. What to do if you have Problems For any increased pain, shortness of breath, bleeding, nausea or vomiting, chest pain, or any unexpected problems, contact your Primary Care Provider. Call [facility] Registry ([phone]) or report to the closest Emergency Room. Call 911 if necessary. 12/29/17912 <Electronically signed by Carl Martinez MD> Date Carl Martinez MD Cosigner Signature (If Indicated): Date CC: Nathalia Carson DO; Gonzales Goddard MD PAP I-G W/RFX Collected: 11/24/2017 Status: F Source: [place] HRHPV-APTIMA 3:30 PM [facility] REPOSITORY Order Comment: CYTOLOGY INFORMATION: - CLINICAL INFORMATION: - DATE LMP/MENOPAUSE: 88 LMP - COLLECTION VIAL: Thin Prep Vial - ROOM MANAGER SOURCE: CERVICAL - COLLECTION TECHNIQUE: BRUSH ONLY Specimen Comment: [id number] Specimen Comment: Source.............Cervix Specimen Comment: LMP / Prev Treat...[id number] Specimen Comment: No. of containers..01 ThinPrep Vial TYPE CODE TESTS RESULT OUT OF RANGE REFERENCE UNITS LAB L7400.0800 . Normal DIAGN Comment Result Comment: NEGATIVE FOR INTRAEPITHELIAL LESION AND MALIGNANCY. THIS SPECIMEN WAS RESCREENED PART OF OUR TUB PULLER PROGRAM. LAB L7400.0900 . Normal ADEQ Comment Result Comment: Satisfactory for evaluation. No endocervical component is identified. Areas of partially obscuring inflammtory exudate are present. LAB L7400.1400 . Normal PERFORM Comment Result Comment: Cynthia Hussein, Presser Hand (ASCP) LAB L7400.1500 . Normal QC Comment REV Result Comment: Fadumo Cao, Supervisory Presser Hand (ASCP) LAB L7400.2575 . Normal TEST METHOD [...] no HPV testing was performed. Performed at: [facility] [id number] Percussion Instructor: Radha Ray MD, Phone: [phone] Performed By: #### L7400.0353 #### [facility] (refer to report for specific site) refer to report for address and phone number MANAGER HAIR OFFICE VISIT Observed: 11/24/2017 Status: F Source: [place] REPORT 3:11 PM [facility] [address] [place] [address] OFFICE VISIT Date of Service: 11/24/17 MR#: [id number] Acct: [id number] Name: WYATTEDDIE GUILLENMatti Weeks Rep #: [id number] : 1990 Provider: Shanthi Felton MD Age/Sex: 27/F Location: [facility] Status: Signed Intake Vital Signs11/24/17 Height 5 ft 4 in 11/24/17 Weight: 176 lb 4 oz 11/24/17 Body Mass Index (BMI) 30.2 11/24/17 Blood Pressure 118/80 Intake Visit Reasons: 6w PP Sap Analyst Required: No Is patient in pain?: No Allergies acetaminophen [From Tuckasegee] Allergy (Verified 11/24/17 14:42) Hives hydrocodone [From [place]] Allergy (Verified 11/24/17 14:42) Hives naproxen Allergy [...] custody of any of her children now. [facility] Medical History Depression (Acute) Surgical History delivery [...] abortions Past Pregnancies Del. DatName GA/WeeksOutcome Route [facility] LocaProviderFOB e ht en th ia tn 04/17/15Rowyn live birC-sectio7 lbs 13Male spinal [facility] CHON th - fuln oz l term [...] and colleagues, with an educational sebastian from [employer]. Scoring: Total Score Depression Severity Action 1-4 Minimal depression No action needed 5-9 Mild depression Repeat PHQ-9 at follow up 10-14 Moderate depression Make tx plan,consider counseling, fup, prescription Post HPI 6w PP: Details: ROWENA JAQUEZ is a 27 year old who presents for her post visit. Feeding: Bottle Menses resumed: No Sutter since delivery: No Emotional Support: Yes ROS [...] cooperative, healthy appearing, comfortable, no acute distress HENCT Head: normal to inspection Neck Neck: normal [...] EMERGENCY DEPARTMENT Observed: 11/15/2017 Status: F Source: [place] SUMMARY 3:37 PM [facility] REPOSITORY [facility] Medical Records Department [address] [place] [address] Emergency Department Summary 11/15/17 1432 MR#: [id number] Acct: [id number] Name: ROWENA JAQUEZ Rep #: [id number] : 1990 27 From: Salvatore Mcgill MD PCP: Gonzales Goddard MD Status: DEP ER - ER Visit Summary Date of Service: 11/15/17 Chief Complaint: Dental pain History of Present Illness: The patient is a 27 F with dental pain which is increasing over the past 2 days. The patient had multiple molars extracted. She was prescribed Tuckasegee, but this caused nausea, vomiting, and an [...] report. She was prescribed 2 days of Tuckasegee, 2 days ago. I will prescribe a short course of Percocet. She has tolerated this in the past. She will follow-up with her dentist tomorrow. There is no evidence of abscess, dry socket, bleeding, or any other complications. Treatment Plan: As above Disposition: Discharged Impression: 1. Dental pain This note was generated with Carbonite dictation software. It may contain incorrect words, [...] problems, contact your Primary Care Provider. Call [facility] ([phone]) or report to the closest Emergency Room. Call 911 if necessary. 11/15/17 1537 <Electronically signed by Salvatore Mcgill MD> Date Salvatore Mcgill MD Cosigner Signature (If Indicated): Date CC: Gonzales Goddard MD DISCHARGE INSTRUCTION Observed: 11/15/2017 Status: F Source: [place] 3:37 PM [facility] REPOSITORY [facility] Medical Records Department [address] [place] [address] Discharge Instruction 11/15/17 1436 MR#: [id number] Acct: [id number] Name: ROWENA JAQUEZ Rep #: [id number] : 1990 27 From: Salvatore Mcgill MD [...] your Primary Care Provider. Call [facility] ([phone]) or report to the closest Emergency Room. Call 911 if necessary. 11/15/17 1537 <Electronically signed by Salvatore Mcgill MD> Date Salvatore Mcgill MD Cosigner Signature (If Indicated): Date CC: Gonzales Goddard MD MANAGER HAIR OFFICE VISIT Observed: 10/18/2017 Status: F Source: [place] REPORT 4:05 PM [facility] [address] [place] [address] OFFICE VISIT Date of Service: 10/18/17 MR#: [id number] Acct: [id number] Name: WYATTNICKOLASLUISROWENA M Rep #: [id number] : 1990 Provider: HEATHER Schroeder Age/Sex: 27/F Location: [facility] Status: Signed Intake Vital Signs10/18/17 Height 5 ft 4 in 10/18/17 Weight: 182 lb 2 oz 10/18/17 Body Mass Index (BMI) 31.2 Intake Visit Reasons: check rash Sap Analyst Required: No Accompanied by: Grandmother Is patient [...] abortions Past Pregnancies Del. DatName GA/WeeksOutcome Route [facility] LocaProviderFOB e ht en th ia tn 04/17/15Rowyn live birC-sectio7 lbs 13Male spinal [facility] th - fuln oz l term Delivery Date: 10/12/17 On 10/13/17 @ 11:24 rTam Hawley BTL Delivery Date: 07/12/16 No notes [...] DISCHARGE SUMMARY Observed: 10/15/2017 Status: F Source: [place] 10:36 AM [facility] REPOSITORY [facility] Medical Records Department [address] [place] [address] Discharge Summary 10/15/17 1035 MR#: [id number] Acct: [id number] Name: ROWENA JAQUEZ Rep #: [id number] : 1990 27 From: Shanthi Felton MD PCP: Gonzales Goddard MD Status: ADM IN Location: [id number] Discharge Date and Diagnosis Date of Admission: [...] appointment for an incision check in 1-2 [phone] When: You will need a post- check in 6 weeks. Medical Necessity - Tobacco Use Smoking Status: Former smoker Meaningful Use Info Meaningful Use Diagnoses (Choose all that apply): None applicable 10/15/17 1036 <Electronically signed by Shanthi Felton MD> Date Shanthi Felton MD Cosigner Signature (if applicable): Date CC: Gonzales Goddard MD; Shanthi Felton MD Signed DISCHARGE INSTRUCTION Observed: 10/14/2017 Status: F Source: [place] 3:14 AM [facility] REPOSITORY [facility] Medical Records Department [address] [place] [address] Instructions for Home/Discharge Instructions 10/14/17 0313 MR#: [id number] Acct: [id number] Name: ROWENA JAQUEZ Rep #: [id number] : 1990 27 From: Shanthi Felton MD [...] appointment for an incision check in 1-2 [phone] When: You will need a post- check in 6 weeks. Primary Care Physician: Gonzales Goddard MD [Primary Care Provider] - 10/14/17 0314 <Electronically signed by Shanthi Felton MD> Date Shanthi Felton MD CC: Gonzales Goddard MD CBC-COMPLETE BLOOD CNT Collected: 10/13/2017 Status: F Source: [place] NO DIFF 4:45 AM [facility] REPOSITORY Order Comment: Comments: Day #1 Reason [...] MPV 9.3 Performed By: #### L100.0500 #### [facility] [address] [facility] [place], [address] OPERATIVE REPORT Observed: 2017 Status: F Source: [place] 2:14 PM [facility] REPOSITORY [facility] Medical Records Department [address] [place] [address] Operative Report 10/12/17 1409 MR#: [id number] Acct: [id number] Name: ROWENA JAQUEZ Rep #: [id number] : 1990 27 From: Shanthi Felton MD PCP: Gonzales Goddard MD Status: ADM IN Y Location: [place] [address] Problem List (1) Previous section Status: Acute Comment: plans RLTCS/BTO. history of postop wound cellulitis; title 19 signed Report of Operation Date of Procedure: 10/12/17 Pre-Operative Diagnosis: Previous 2 and desired sterilization Post-Operative Diagnosis: Same Surgery/Procedure Performed:: repeat low transverse and bilateral tubal ligation Via [place] method Description of Surgical Findings:: Normal uterus tubes and ovaries with minimal scar tissue present yoga coordinator: Maddie Reyes Type of Anesthesia:: Spinal Special [...] Status: F Source: [place] WORKUP 2:00 PM [facility] REPOSITORY Order Comment: Order Date: 10/12/17 Has pt arrived? Y Baby's Full Name NOY JAQUEZ Baby's Bracelet # [id number] Baby's MR # [id number] TYPE CODE TESTS RESULT OUT OF RANGE REFERENCE UNITS LAB B101.0425 A Normal MOM'S ABO NEGATIVE RH LAB B101.0450 Normal MOM'S ABS NEGATIVE LAB B101.0500 NEGATIVE Normal NEGATIVE SCREEN LAB B101.0950 O Normal BABY'S POSITIVE ABO RH LAB B101.1000 NEGATIVE Normal BABY'S NEGATIVE GUILLE Performed By: #### B101.0300 #### [facility] [address] [place], [place], [address] RHOGAM Collected: 2017 Status: F Source: [place] 2:00 PM [facility] REPOSITORY TYPE CODE TESTS RESULT OUT OF REFERENCE UNITS RANGE LAB U100.2500 [id number] TRANSFUSED PRODUCT: Rho(D) Immune Globulin RhoGam COUNT: 1 Performed By: #### U100.2500 #### [facility] - refer to report for specific site PATHOLOGY SPECIMEN OB Collected: 2017 Status: F Source: [place] 1:33 PM [facility] REPOSITORY Order Comment: Send Specimen For (Specify): Studies @ [facility] Lab:Routine Time of Procedure: 1238 Date of Procedure: 10/12/17 Reason specimen being sent to pathology (Hx/complications): STUDIES @ [facility] LAB Type of specimen: Fallopian Tube Type of procedure performed: Tubal Ligation TYPE CODE TESTS RESULT OUT OF RANGE REFERENCE UNITS LAB L350.1800 SEE Normal PATH. PATHOLOGY Spec. OB REPORT Result Comment: Specimen submitted to Anatomical Pathology Department for testing. Performed By: #### L350.1800 #### [facility] [address] [place], [place], [address] CBC W/DIFF, AUTOMATED Collected: 2017 Status: F Source: [place] 10:50 AM [facility] REPOSITORY TYPE CODE TESTS RESULT OUT OF [...] Lymph 2.75 Performed By: #### L100.0100 #### [facility] [address] [place], [place], [address] TYPE AND SCREEN Collected: 2017 Status: F Source: [place] 10:50 AM [facility] REPOSITORY Order Comment: Reason for Type AND Screen/Red Cells: SURGERY Type of Surgery: TYPE CODE TESTS RESULT OUT OF RANGE REFERENCE UNITS LAB B10.0800 A Normal BLOOD TYPE GEL NEGATIVE LAB B100.4000 Normal Antibody NEGATIVE Screen Performed By: #### B101.7450 #### [facility] [address] [place], [place], [address] FALLOPIAN TUBES/STERILIZATION Observed: 2017 Status: F Source: [place] 12:00 AM [facility] REPOSITORY Patient: ROWENA JAQUEZ : 1990 (27/F) Acct Num: [id number] Phys: Shanthi Felton MD Unit Num: [id number] Loc: WP AP453-1 Specimen: [id number] Received: 10/13/17 - 0756 Spec Type: FALL [...] fimbriated ends. No mass lesions are identified. Nurse Private Duty sections are submitted in two cassettes as follows: 1 right fallopian tube, 2 - left fallopian tube. / AM:sp 10/13/17 TC: 4 CPT: 26977 x2 HEADER OPERATION: Tubal ligation PRE-OP DIAGNOSIS: Desires sterilization TISSUE SUBMITTED: Fallopian tubes MICROSCOPIC DESCRIPTION Slides are reviewed. MICROSCOPIC DIAGNOSIS Right and left fallopian tubes, bilateral partial salpingectomies: Complete cross section fallopian tubes with no pathologic change. AM:jesus manuel 10/16/17 Signed Roberto [facility] 10/16/17 <signature on file> Performed By: #### PFALS #### [facility] [place], [address] MANAGER HAIR OFFICE VISIT Observed: 10/10/2017 Status: F Source: [place] REPORT 8:56 AM [facility] REPOSITORY [facility] [place] [address] [place] [address] OFFICE VISIT Date of Service: 10/10/17 MR#: [id number] Acct: [id number] Name: ROWENA JAQUEZ Rep #: [id number] : 1990 Provider: Shanthi Felton MD Age/Sex: 26/F Location: [facility] Status: Signed Intake Vital Signs10/10/17 Height 5 ft 4 in 10/10/17 Weight: 193 lb 6 oz 10/10/17 Body Mass Index (BMI) 33.2 10/10/17 Blood Pressure 125/74 Intake Visit Reasons: 38 week Sap Analyst Required: No Is patient in pain?: No [...] presents for routine OB visit. OB Visit [facility] Provider [facility]'s physician: dr meenu RUY Calculator Estimated Delivery [...] to have privacy for delivery and social service coordinator are involved. Shanthi Felton MD on 09/25/17 Visit Date: 09/13/17 some occa BH CTX. No Vb, LOF. 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 [...] Cervical Ripening/Labor Induction Counseling, Postterm Counseling, Feeding, [place] Education, Family Medical Leave or Disability Forms, [...] Status: F Source: [place] SUMMARY 4:32 PM [facility] REPOSITORY [facility] Medical Records Department [address] [place] [address] Emergency Department Summary 10/05/17 0935 MR#: [id number] Acct: [id number] Name: ROWENA JAQUEZ Rep #: [id number] : 1990 26 From: Naomi Puente MD [...] in the emergency department, we spoke with MANAGER HAIR they agreed she could be discharged home and then shortly after we had spoke with OB she vomited, continue to complain of being nauseated to the point where she is not physically discharged home, I spoke with Dr. Felton at this time will transfer the patient to MANAGER HAIR for further management Treatment Plan: [] Disposition: [] Transfer to MANAGER HAIR unit Impression: [] Approximately 38 weeks , vomiting and diarrhea This note was generated with Kikoation software. It may contain incorrect words, spelling, [...] your Primary Care Provider. Call [facility] ([phone]) or report to the closest Emergency Room. Call 911 if necessary. 10/05/17 1632 <Electronically signed by Naomi Puente MD> Date Naomi Puente MD Cosigner Signature (If Indicated): Date CC: Gonzales Goddard MD DISCHARGE INSTRUCTION Observed: 10/05/2017 Status: F Source: [place] 2:13 PM [facility] REPOSITORY [facility] Medical Records Department [address] [place] [address] Discharge Instruction 10/05/17 1412 MR#: [id number] Acct: [id number] Name: ROWENA JAQUEZ Rep #: [id number] : 1990 26 From: Naomi Puente MD [...] your Primary Care Provider. Call [facility] ([phone]) or report to the closest Emergency Room. Call 911 if necessary. 10/05/17 1413 <Electronically signed by Naomi Puente MD> Date Naomi Puente MD Cosigner Signature (If Indicated): Date CC: Gonzales Goddard MD URINALYSIS, COMPLETE Collected: 10/05/2017 Status: F Source: [place] 10:15 AM [facility] REPOSITORY Order Comment: Order Date: 10/05/17 Has [...] MUCUS, URINE Performed By: #### L400.0001 #### [facility] [address] [place], [address] CBC W/DIFF, AUTOMATED Collected: 10/05/2017 Status: F Source: [place] 9:55 AM [facility] REPOSITORY TYPE CODE TESTS RESULT OUT OF [...] Lymph 2.47 Performed By: #### L100.0100 #### [facility] [address] [place], [place], [address] BASIC METABOLIC Collected: 10/05/2017 Status: F Source: [place] PROFILE ([facility]) 9:55 AM [facility] REPOSITORY TYPE CODE TESTS RESULT OUT OF [...] Performed By: #### L500.2500, L500.3400, L501.2450 #### [facility] [address] [facility] [place], [place], [address] LIVER PROFILE Collected: 10/05/2017 Status: F Source: [place] 9:55 AM [facility] REPOSITORY TYPE CODE TESTS RESULT OUT OF [...] Performed By: #### L500.2500, L500.3400, L501.2450 #### [facility] [address] [place], [address] LIPASE Collected: 10/05/2017 Status: F Source: [place] 9:55 AM [facility] REPOSITORY TYPE CODE TESTS RESULT OUT OF RANGE REFERENCE UNITS LAB L501.2450 73-393 U/L Normal LIPASE 152 Performed By: #### L500.2500, L500.3400, L501.2450 #### [place] [facility] [address] [place], [address] MANAGER HAIR OFFICE VISIT Observed: 10/03/2017 Status: F Source: [place] REPORT 4:12 PM [facility] REPOSITORY [facility] [address] [place] [address] OFFICE VISIT Date of Service: 10/03/17 MR#: [id number] Acct: [id number] Name: ROWENA JAQUEZ Rep #: [id number] : 1990 Provider: Shanthi Felton MD Age/Sex: 26/F Location: [facility] Status: Signed Intake Vital Signs10/03/17 Height 5 ft 4 in 10/03/17 Weight: 196 lb 10/03/17 Body Mass Index (BMI) 33.6 10/03/17 Blood Pressure 121/74 Intake Visit Reasons: 37 weeks Chief Complaint: est ob Sap Analyst Required: No Is patient in pain?: Yes [...] to have privacy for delivery and social service coordinator are involved. Shanthi Felton MD on 09/25/17 Visit Date: 09/13/17 some occa BH CTX. No Vb, LOF. 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 In case of penicillin allergy, susceptibility testing for Clindamycin and Erythromycin is suggested by request. Performed By: #### L8200.0000 #### [facility] [address] [place], [address] MANAGER HAIR OFFICE VISIT Observed: 09/25/2017 Status: F Source: [place] REPORT 12:04 PM [facility] REPOSITORY [facility] [address] [place] [address] OFFICE VISIT Date of Service: 09/25/17 MR#: [id number] Acct: [id number] Name: ROWENA JAQUEZ Rep #: [id number] : 1990 Provider: Shanthi Felton MD Age/Sex: 26/F Location: [facility] [facility] Status: Signed Intake Vital Signs09/25/17 Height 5 ft 4 in 09/25/17 Weight: 190 lb 8 oz 09/25/17 Body Mass Index (BMI) 32.7 09/25/17 Blood Pressure 123/71 Intake Visit Reasons: CRAMPING Sap Analyst Required: No Is patient in pain?: Yes [...] to have privacy for delivery and social service coordinator are involved. Shanthi Felton MD on 09/25/17 Visit Date: 09/13/17 some occa BH CTX. No Vb, LOF. 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 [...] Status: F Source: [place] BIOMETRICS 1:29 PM [facility] REPOSITORY [facility] Imaging Services [address] [place] [address] [place] [address] OB Limited With Biometrics MR#: [id number] Acct: [id number] Name: ROWENA JAQUEZ Rep #: [id number] : 1990 F 26 From: Taurus Romano MD PCP: Gonzales Goddard MD Status: REG CLI Study: OB Limited With Biometrics Date of Exam: 09/19/17 Exam# [id number] Ordering Dr: Lyn Schroeder FOREST FIRE PREVENTION MANAGER-Keyshawn STUDY: SECOND AND THIRD TRIMESTER OBSTETRICAL ULTRASOUND [...] , CC: HEATHER Schroeder; Gonzales Goddard MD Fiscal Clerk: Signed CBC W/DIFF, AUTOMATED Collected: 09/13/2017 Status: F Source: [place] 10:00 AM [facility] REPOSITORY TYPE CODE TESTS RESULT OUT OF [...] Lymph 3.04 Performed By: #### L100.0100 #### [facility] [place], [address] MANAGER HAIR OFFICE VISIT Observed: 09/13/2017 Status: F Source: [place] REPORT 9:52 AM [facility] [address] [place] [address] OFFICE VISIT Date of Service: 09/13/17 MR#: [id number] Acct: [id number] Name: ROWENA JAQUEZ Rep #: [id number] : 1990 Provider: HEATHER Schroeder Age/Sex: 26/F Location: [facility] [place] [facility] Status: Signed Intake Vital Signs09/13/17 Height 5 ft 4 in 09/13/17 Weight: 188 lb 4 oz 09/13/17 Body Mass Index (BMI) 32.3 09/13/17 Blood Pressure 118/70 Intake Visit Reasons: 34 weeks Chief Complaint: est ob Sap Analyst Required: No Is patient in pain?: No [...] safe at home: Yes additional social history: [employer] [place] Pre[employer] History 3 Elective abortions Hx Para [...] BH CTX. No Vb, LOF. 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 [place] [address] OFFICE VISIT Date of Service: 08/29/17 MR#: [id number] Acct: [id number] Name: ROWENA JAQUEZ Rep #: [id number] : 1990 Provider: Shanthi Felton MD Age/Sex: 26/F Location: [facility] [place] [facility] Status: Signed Intake Vital Signs08/29/17 Height 5 ft 4 in 08/29/17 Weight: 190 lb 4 oz 08/29/17 Body Mass Index (BMI) 32.6 08/29/17 Blood Pressure 105/60 Intake Visit Reasons: 32 weeks Chief Complaint: est ob Sap Analyst Required: No Is patient in pain?: No [...] safe at home: Yes additional social history: [employer] [place] Pregancy History 3 Elective abortions Hx Para [...] 08/27/2017 Status: COMPLETED Source: [place] 10:00 AM [facility] REPOSITORY Office Visit (WSTR) ROWENA JAQUEZ ([id number]) 1990 F Date Time Provider Department 08/27/17 [...] limitation of urgent care, directed patient to windows application administrator if needing pain medication -take medication as [...] 08/27/2017 Status: COMPLETED Source: [place] 9:59 AM [facility] REPOSITORY HNO ID: [id number] Author: Merle Melendez) Service: (none) Author Type: [...] limitation of urgent care, directed patient to windows application administrator if needing pain medication -take medication as [...] Patient agreeable to treatment plan. Merle Moulton APRN.SUPERVISOR FABRICATION AND ASSEMBLY (ROM) RUPTURE OF Collected: 08/20/2017 Status: F Source: [place] [facility] 5:00 PM [facility] REPOSITORY TYPE CODE TESTS RESULT OUT OF RANGE REFERENCE UNITS LAB L205.1310 Negative Normal ROM Negative Result Comment: Amniotic fluid not present indicates No Rupture of Membranes at time of specimen collection. Performed By: #### L205.1000 #### [facility] [address] [facility] [place], [address] DISCHARGE INSTRUCTION Observed: 08/18/2017 Status: F Source: [place] 8:33 PM [facility] REPOSITORY [facility] Medical Records Department [address] [place] [address] Discharge Instruction 08/18/172031 MR#: [id number] Acct: [id number] Name: ROWENA JAQUEZ Rep #: [id number] : 1990 26 From: Tomás Castle DO [...] your Primary Care Provider. Call [facility] ([phone]) or report to the closest Emergency Room. Call 911 if necessary. 08/18/172032 <Electronically signed by Tomás Castle DO> Date Tomás Castle DO Cosigner Signature (If Indicated): Date CC: Gonzales Goddard MD EMERGENCY DEPARTMENT Observed: 08/18/2017 Status: F Source: [place] SUMMARY 8:32 PM [facility] REPOSITORY [facility] Medical Records Department [address] [place] [address] Emergency Department Summary 08/18/172028 MR#: [id number] Acct: [id number] Name: ROWENA JAQUEZ Rep #: [id number] : 1990 26 From: Tomás Castle DO [...] fell and got wedged between a hand paper sorter and counter and another object. Patient then attempted to [...] [Facial contusion] This note was generated with Carbonite dictation software. It may contain incorrect words, [...] your Primary Care Provider. Call [facility] ([phone]) or report to the closest Emergency Room. Call 911 if necessary. 08/18/172031 <Electronically signed by Tomás Castle DO> Date Tomás Castle DO Cosigner Signature (If Indicated): Date CC: Gonzales Goddard MD SINUS/FACIAL BONE Observed: 08/18/2017 Status: F Source: [place] 7:59 PM [facility] REPOSITORY [facility] Imaging Services [address] [place] [address] Sinus/Facial Bone MR#: [id number] Acct: [id number] Name: ROWENA JAQUEZ Rep #: [id number] : 1990 F 26 From: Devendra Salazar MD PCP: Gonzales Goddard MD Status: REG ER Study: Sinus/Facial Bone Date of Exam: 08/18/17 Exam# [id number] Ordering Dr: Tomás Castle DO STUDY: CT [...] CC: Gonzales Goddard MD; Tomás Castle DO Fiscal Clerk: Signed MANAGER HAIR OFFICE VISIT Observed: 08/15/2017 Status: F Source: [place] REPORT 3:46 PM [facility] REPOSITORY [facility] [address] [place] [address] OFFICE VISIT Date of Service: 08/15/17 MR#: [id number] Acct: [id number] Name: ROWENA JAQUEZ Rep #: [id number] : 1990 Provider: Shanthi Felton MD Age/Sex: 26/F Location: [facility] [place] [facility] Status: Signed Intake Vital Signs08/15/17 Height 5 ft 4 in 08/15/17 Weight: 191 lb 08/15/17 Body Mass Index (BMI) 32.8 08/15/17 Blood Pressure 115/60 08/15/17 Height 5 ft 4 in Intake Visit Reasons: 30 weeks Chief Complaint: est ob Sap Analyst Required: No Is patient in pain?: No [...] Period: 01/24/18 Zika: Zika virus screening: Negative [facility] Medical History Depression (Acute) Surgical History delivery delivered (Acute) Family History Grandfather Diabetes Heart disease Social History Smoking Status: Former smoker alcohol intake: never substance use type: does not use caffeine: Yes what type of physical activity do you participate in: none seatbelt use: sometimes do you feel safe at home: Yes additional social history: [employer] [place] Pre[place]cy History 3 Elective abortions Hx Para [...] Felton MD on 04/07/17 Visit Date: 04/07/17 ISAIHA Felton MD on 04/07/17 Visit Date: 04/07/17 [...] CC: PROGRESS Observed: 08/11/2017 Status: COMPLETED Source: P[place] 12:00 PM [facility] REPOSITORY O ID: [id number] Author: Bijal (Replanter) Ash Service: (none) Author Type: Nurse Practitioner [...] APRN.CNP CNOV Observed: 08/11/2017 Status: COMPLETED Source: [place] 11:45 AM [facility] REPOSITORY Office Visit (WSTR) ROWENA JAQUEZ ([id number]) 1990 F Date Time Provider Department 08/11/17 11:45 AM BIJAL ALEMAN (MARILYNN) [facility] During your visit today, we recorded the [...] even if the symptoms go away. 2. Hcyp-bjw-bumuvdr pain medication may be taken or other [...] help open respiratory and sinus passages 2. [place] Nasal [place]worth may offer relief of nasal and head [...] Hives Date Reviewed: 08/11/2017 Reviewed by: Bijal ([facility]) Ash - Fully Assessed Reason for [...] even if the symptoms go away. 2. Kpjp-zfi-ejnmrak pain medication may be taken or other [...] help open respiratory and sinus passages 2. [place] Nasal [place] may offer relief of nasal and head [...] DOWNTIME REPORT Observed: 08/10/2017 Status: F Source: [place] 11:51 AM [facility] REPOSITORY [facility] Medical Records Department [address] [place] [address] Downtime Report MR#: [id number] Acct: [id number] Name: ROWENA JAUQEZ Rep #: [id number] : 1990 26 From: Vik Meyer PCP: Care Physician, No Primary Status: REG CLI This patient was seen during an EMR downtime July 24, 2017 - July 31, 2017. This patient may have a combination of paper and electronic documentation or all paper documentation. All documentation is viewable within the e-chart portion of [employer] for each patient visit. EMERGENCY DEPARTMENT Observed: 08/07/2017 Status: F Source: [place] SUMMARY 5:02 PM [facility] REPOSITORY [facility] Medical Records Department [address] [place] [address] Emergency Department Summary 08/07/17 0912 MR#: [id number] Acct: [id number] Name: ROWENA JAQUEZ Rep #: [id number] : 1990 26 From: Dion Spencer MD [...] follow-up Dr. Desmond Meyer, who is next amortization clerk for no doc, in 1-2 days if not improving. Follow-up Dr. Felton as scheduled. Return to the emergency department for any worsening symptoms. Disposition: To home in improved and stable condition. Impression: 1. Vomiting/diarrhea. 2. Third trimester . This note was generated with Kikoation software. It may contain incorrect words, spelling, [...] your Primary Care Provider. Call [facility] ([phone]) or report to the closest Emergency Room. Call 911 if necessary. 08/07/17 1702 <Electronically signed by Dion Spencer MD> Date Dion Spencer MD Cosigner Signature (If Indicated): Date CC: No Primary Care Physician CBC-COMPLETE BLOOD CNT Collected: 08/07/2017 Status: F Source: [place] NO DIFF 9:20 AM [facility] REPOSITORY TYPE CODE TESTS RESULT OUT OF [...] MPV 9.0 Performed By: #### L100.0500 #### [facility] [address] [place], [address] BASIC METABOLIC Collected: 08/07/2017 Status: F Source: [place] PROFILE ([facility]) 9:20 AM [facility] REPOSITORY TYPE CODE TESTS RESULT OUT OF [...] Normal 7 Performed By: #### L500.2500 #### [facility] [address] [place], [address] 12 LEAD ELECTROCARDIOGRAM Observed: 08/07/2017 Status: F Source: [place] 8:59 AM [facility] REPOSITORY [facility] Cardiovascular Services [address] [place] [address] 12 Lead EKG 08/02/17 1913 MR#: [id number] Acct: [id number] Name: EDDIE JAQUEZA Desi Rep #: [id number] : 1990 26 From: Roger Montes De [...] Abnormal ECG Confirmed by WIN BOLAND, ROGER ([id number]), desk editor ABE MEYER ([id number]) on 08/04/2017 2:47:31 PM Referred By: Shanthi Felton Confirmed By:ROGER MONTES DE OCA MD 08/04/17 1447 Date Roger Montes De Oca MD CC: No Primary Care Physician; Thelma Conroy MD; Shanthi Felton MD Signed MANAGER HAIR OFFICE VISIT Observed: 08/05/2017 Status: F Source: [place] REPORT 4:06 AM [facility] [address] [place] [address] OFFICE VISIT Date of Service: 08/01/17 MR#: [id number] Acct: [id number] Name: GISELEROWENA M Rep #: [id number] : 1990 Provider: Shanthi Felton MD Age/Sex: 26/F Location: [facility] Status: Signed Intake Vital Signs08/01/17 Height 5 ft 4 in 08/01/17 Weight: 188 lb 6 oz 08/01/17 Body Mass Index (BMI) 32.3 08/01/17 Blood Pressure 135/79 Intake Visit Reasons: 28 weeks Sap Analyst Required: No Is patient in pain?: Yes [...] safe at home: Yes additional social history: [employer] [place] Pregancy History 3 Elective abortions Hx Para 2 Spontaneous abortions Past Pregnancies Del. DateName GA/Weeks Outcome Route Bth WeighInfant GeLabor LgtAnesthesiDel LocatProvider FOB t n h a n HPI 28 weeks: Details: ROWENA JAQUEZ is a 26 [...] EMERGENCY DEPARTMENT Observed: 08/03/2017 Status: F Source: [place] SUMMARY 12:22 AM [facility] REPOSITORY [facility] Medical Records Department [address] [facility] [place] [address] Emergency Department Summary 08/02/17 1908 MR#: [id number] Acct: [id number] Name: ROWENA JAQUEZ Rep #: [id number] : 1990 26 From: Thelma Conroy MD [...] I spoke with Dr. Felton, the patient's MANAGER HAIR. Patient will be given potassium replacement for a few days. She is instructed to take her iron supplements. She is instructed to take it easy for the next few days and I will write her a work note for tomorrow. Treatment Plan: [] Disposition: Discharge Impression: Hypokalemia This note was generated with Kikoation software. It may contain incorrect words, spelling, [...] problems, contact your Primary Care Provider. Call [facility] ([phone]) or report to the closest Emergency Room. Call 911 if necessary. 08/03/17 0022 <Electronically signed by Thelma Conroy MD> Date Thelma Conroy MD Cosigner Signature (If Indicated): Date CC: No Primary Care Physician DISCHARGE INSTRUCTION Observed: 08/02/2017 Status: F Source: [place] 8:51 PM [facility] REPOSITORY [facility] Medical Records Department [address] [place] [address] Discharge Instruction 08/02/172049 MR#: [id number] Acct: [id number] Name: ROWENA JAQUEZ Rep #: [id number] : 1990 26 From: Thelma Conroy MD [...] your Primary Care Provider. Call [facility] ([phone]) or report to the closest Emergency Room. Call 911 if necessary. 08/02/172050 <Electronically signed by Thelma Conroy MD> Date Thelma Conroy MD Cosigner Signature (If Indicated): Date CC: No Primary Care Physician URINALYSIS, COMPLETE Collected: 08/02/2017 Status: F Source: [place] 7:55 PM [facility] REPOSITORY Order Comment: Order Date: 08/02/17 Has [...] URINE SEEN Performed By: #### L400.0001 #### [facility] [address] [place], [address] BEDSIDE GLUCOSE Collected: 08/02/2017 Status: F Source: [place] 7:30 PM [facility] REPOSITORY TYPE CODE TESTS RESULT OUT OF RANGE REFERENCE UNITS LAB L501.080 70-110 mg/dL Normal BEDSIDE GLU 80 Result Comment: MANAGEMENT OF PATIENT CARE PER NURSING PROTOCOL Performed By: #### L501.080 #### [facility] Point of Care [address] [place] [address] CBC W/DIFF, AUTOMATED Collected: 08/02/2017 Status: F Source: [place] 7:30 PM [facility] REPOSITORY TYPE CODE TESTS RESULT OUT OF [...] Lymph 2.37 Performed By: #### L100.0100 #### [facility] [address] [place], [place], [address] BASIC METABOLIC Collected: 08/02/2017 Status: F Source: [place] PROFILE (BMP) 7:30 PM [facility] REPOSITORY TYPE CODE TESTS RESULT OUT OF [...] Normal 7 Performed By: #### L500.2500 #### [facility] [address] [facility] [place], [address] OB LIMITED WITH Observed: 07/28/2017 Status: F Source: [place] BIOMETRICS 7:39 PM [facility] REPOSITORY [facility] Imaging Services [address] [place] [address] OB Limited With Biometrics MR#: [id number] Acct: [id number] Name: ROWENA JAQUEZ Rep #: [id number] : 1990 F 26 From: Kali Julio MD PCP: Care Physician, No Primary Status: REG CLI Study: OB Limited With Biometrics Date of Exam: 07/24/17 Exam# [id number] Ordering Dr: Lyn Schroeder FOREST FIRE PREVENTION MANAGER-C STUDY: SECOND AND THIRD TRIMESTER OBSTETRICAL ULTRASOUND [...] CC: HEATHER Schroeder; No Primary Care Physician Fiscal Clerk: Signed OFFICE VISIT REPORT Observed: 07/23/2017 Status: F Source: [place] 11:10 AM [facility] [place] [address] OFFICE VISIT Date of Service: 07/21/17 MR#: [id number] Acct: [id number] Patient: ROWENA JAQUEZ Rep #: [id number] : 1990 Provider: Shanthi Felton MD Age/Sex: 26/F Location: [facility] Status: Signed Intake Vital [...] Admin Location Lot Number Expiration Date NDC Finish Machine Tender 1,500 unit IM [facility]'[id number] 12/09/18 7039-7651-19 [facility] Care Assessment AND Plan Orders Orders: Medications Discontinued: RhoGAM Ultra-Filtered PLUS (rho(D) im1,500 units IM ONCE NS O09.899, Z67.91 Tramdebbie bernal globulin) Discontinued Reason : Office Medication has been Long serrano as given 07/23/17 1110 <Electronically signed by Shanthi Felton MD> Date Shanthi Felton MD Cosigner Signature: Date (if applicable) CC: GLUCOSE CHALLENGE GEST Collected: 07/21/2017 Status: F Source: [place] 1H 50G 2:27 PM [facility] REPOSITORY TYPE CODE TESTS RESULT OUT OF RANGE REFERENCE UNITS LAB L501.0250 70-140 mg/dL Normal GLU GEST 86 50g 1H Performed By: #### L501.0250 #### [facility] [place], [address] CBC W/DIFF, AUTOMATED Collected: 07/21/2017 Status: F Source: [place] 2:27 PM [facility] REPOSITORY TYPE CODE TESTS RESULT OUT OF [...] 2.19 Performed By: #### L100.0100, B101.7450 #### [facility] [address] [place], [address] TYPE AND SCREEN Collected: 07/21/2017 Status: F Source: [place] 2:27 PM [facility] REPOSITORY Order Comment: Reason for Type AND Screen/Red Cells: TYPE CODE TESTS RESULT OUT OF RANGE REFERENCE UNITS LAB B10.0800 A Normal BLOOD TYPE GEL NEGATIVE LAB B100.4000 Normal Antibody NEGATIVE Screen Performed By: #### L100.0100, B101.7450 #### [facility] [address] [place], [address] MANAGER HAIR OFFICE VISIT Observed: 07/19/2017 Status: F Source: [place] REPORT 9:07 AM [facility] REPOSITORY [facility] [address] [place] [address] OFFICE VISIT Date of Service: 07/19/17 MR#: [id number] Acct: [id number] Name: ROWENA JAQUEZ Rep #: [id number] : 1990 Provider: HEATHER Schroeder Age/Sex: 26/F Location: [facility] Status: Signed Intake Vital Signs07/19/17 Height 5 ft 4 in 07/19/17 Weight: 190 lb 07/19/17 Body Mass Index (BMI) 32.5 07/19/17 Blood Pressure 108/58 Intake Visit Reasons: 26 WEEKS Chief Complaint: est ob Sap Analyst Required: No Is patient in pain?: No [...] safe at home: Yes additional social history: [employer] [place] Pregancy History 3 Elective abortions Hx Para [...] M bulbous area ILIR, ?fibroid. Repeat US [employer] wk of July 4 NOT low lyying [...] Status: F Source: [place] SUMMARY 4:32 PM [facility] REPOSITORY [facility] Medical Records Department [address] [place] [address] Emergency Department Summary 07/07/17 0726 MR#: [id number] Acct: [id number] Name: ROWENA JAQUEZ Rep #: [id number] : 1990 26 From: Leif Hauser MD PCP: Care Physician, No Primary Status: DEP ER - ER Visit Summary Date of Service: 07/07/17 Chief Complaint: Nausea, vomiting and diarrhea History of Present Illness: The patient is a 26 F who is 25 weeks and 1 day . Ab0. Due date is 10-19-17. Patient is in the care of Dr. Ever Hart of MANAGER HAIR. She states she has had nausea vomiting [...] 25 weeks This note was generated with Kikoation software. It may contain incorrect words, spelling, [...] Zofran as needed for nausea. Follow-up the MANAGER HAIR physician if not improving or return to ER feeling worse. What to do if you have Problems For any increased pain, shortness of breath, bleeding, nausea or vomiting, chest pain, or any unexpected problems, contact your Primary Care Provider. Call [facility] ([phone]) or report to the closest Emergency Room. Call 911 if necessary. 07/07/17 1632 <Electronically signed by Leif Hauser MD> Date Leif Hauser MD Cosigner Signature (If Indicated): Date CC: No Primary Care Physician DISCHARGE INSTRUCTION Observed: 07/07/2017 Status: F Source: [place] 4:32 PM [facility] REPOSITORY [facility] Medical Records Department [address] [facility] [place] [address] Discharge Instruction 07/07/17 0731 MR#: [id number] Acct: [id number] Name: ROWENA JAQUEZ Rep #: [id number] : 1990 26 From: Leif Hauser MD [...] Zofran as needed for nausea. Follow-up the MANAGER HAIR physician if not improving or return to ER feeling worse. What to do if you have Problems For any increased pain, shortness of breath, bleeding, nausea or vomiting, chest pain, or any unexpected problems, contact your Primary Care Provider. Call [facility] ([phone]) or report to the closest Emergency Room. Call 911 if necessary. 07/07/17 1632 <Electronically signed by Leif Hauser MD> Date Leif Hauser MD Cosigner Signature (If Indicated): Date CC: No Primary Care Physician CBC W/DIFF, AUTOMATED Collected: 07/07/2017 Status: F Source: [place] 6:55 AM [facility] REPOSITORY TYPE CODE TESTS RESULT OUT OF [...] Lymph 3.07 Performed By: #### L100.0100 #### [facility] [address] [place], [place], [address] BASIC METABOLIC Collected: 07/07/2017 Status: F Source: [place] PROFILE ([facility]) 6:55 AM [facility] REPOSITORY TYPE CODE TESTS RESULT OUT OF [...] Normal 7 Performed By: #### L500.2500 #### [facility] [address] [place], [place], [address] Observed: 06/21/2017 Status: F Source: [place] CULTURE, URINE 4:27 PM [facility] REPOSITORY Urine Culture ORGANISM 1: Mixed Gram Positive Organisms [place] Count 11,000-25,000 MIX CULTURE Mixed contaminants. Submit a new specimen if indicated. Performed By: #### M100.0650 #### [facility] [address] [place], [address] MANAGER HAIR OFFICE VISIT Observed: 06/21/2017 Status: F Source: [place] REPORT 2:58 PM [facility] REPOSITORY [facility] [address] [place] [address] OFFICE VISIT Date of Service: 06/21/17 MR#: [id number] Acct: [id number] Name: ROWENA JAQUEZ Rep #: [id number] : 1990 Provider: HEATHER Schroeder Age/Sex: 26/F Location: [facility] Status: Signed Intake Vital Signs06/21/17 Blood Pressure 123/68 06/21/17 Height 5 ft 4 in 06/21/17 Weight: 188 lb 4 oz 06/21/17 Body Mass Index (BMI) 32.3 Intake Visit Reasons: 2 week FU from [facility] Chief Complaint: est ob Sap Analyst Required: No Is patient in pain?: No [...] safe at home: Yes additional social history: [employer] [place] Pregancy History 3 Elective abortions Hx Para 2 Spontaneous abortions Past Pregnancies Del. DateName GA/Weeks Outcome Route Bth WeighInfant GeLabor LgtAnesthesiDel LocatProvider FOB t n h a n HPI 2 week FU from [facility]: Details: ROWENA JAQUEZ is a 26 year [...] RTO: 4 weeks Orders Orders: Medications Refilled: [id number] 1-dha 18 mg iron-1 mg -300 mg [...] 06/21/17 1458 <Electronically signed by Lyn Schroeder FOREST FIRE PREVENTION MANAGER-C> Date Lyn Schroeder FOREST FIRE PREVENTION MANAGER-C Cosigner Signature: Date (if applicable) CC: RUBELLA IGG [facility] Collected: 06/19/2017 Status: F Source: EVANS EMPLOYEE 3:12 PM [facility] REPOSITORY TYPE CODE TESTS RESULT OUT OF RANGE REFERENCE UNITS LAB L509.4010 IU/mL Normal Rubella IgG 101.8 Result Comment: Antibody results Interpretation of Immune Status < 5 IU/ml Presumed Non-immune 5 - < 10 IU/ml Equivocal > or = 10 IU/ml Presumed Immune Performed By: #### L509.4010 #### [facility] [address] [place], [place], [address] HEP B SURFACE Collected: 06/19/2017 Status: F Source: [place] ANTIBODIES EMP 3:12 PM [facility] REPOSITORY TYPE CODE TESTS RESULT OUT OF RANGE REFERENCE UNITS LAB L3100.0537 . Normal Hep B Non Reactive Harman AB Result Comment: Non Reactive: Inconsistent with immunity, less than 10 mIU/mL Reactive: Consistent with immunity, greater than 9.9 mIU/mL Performed By: #### L3100.0537, L3100.3400, L3400.1750 #### [facility] (refer to report for specific site) refer to report for address and phone number [facility] JIGNA Collected: 06/19/2017 Status: F Source: EVANS TITER 3:12 PM [facility] REPOSITORY TYPE CODE TESTS RESULT OUT OF RANGE REFERENCE UNITS LAB L3100.3400 Immune >29.9 AU/mL Normal RUBEOLA 156.0 Result Comment: Negative <25.0 Equivocal 25.0 - 29.9 Positive >29.9 Presence of antibodies to Rubeola is presumptive evidence of immunity except when acute infection is suspected. Performed at: - [facility] [address] [id number] Percussion Instructor: Charli Jacobs PhD, Phone: [phone] Performed By: #### L3100.0537, L3100.3400, L3400.1750 #### [facility] (refer to report for specific site) refer to report for address and phone number [facility] ANTIBODY,IGG Collected: 06/19/2017 Status: F Source: SOFIA 3:12 PM [facility] REPOSITORY TYPE CODE TESTS RESULT OUT OF [...] 06/08/2017 Status: COMPLETED Source: HELIO 10:15 AM [facility] REPOSITORY Maternal Medicine Consult Date of Service: [...] ANATOMY SCAN Observed: 05/26/2017 Status: F Source: EVANS 11:25 AM [facility] REPOSITORY [facility] Imaging Services [address] [place] [address] OB Anatomy Scan MR#: [id number] Acct: [id number] Name: ROWENA JAQUEZ Rep #: [id number] : 1990 F 26 From: Memo Carroll MD PCP: Gonzales Goddard MD Status: REG CLI Study: OB Anatomy Scan Date of Exam: 05/26/17 Exam# [id number] Ordering Dr: hSanthi Felton MD STUDY: SECOND AND THIRD TRIMESTER [...] Memo Carroll MD at 20:56 EDT Tel [phone], Service support , CC: Gonzales Goddard MD; Shanthi Felton MD Fiscal Clerk: Signed MANAGER HAIR OFFICE VISIT Observed: 05/09/2017 Status: F Source: SOFIA REPORT 10:22 PM [facility] REPOSITORY [facility] [place] [address] [place] [address] OFFICE VISIT Date of Service: 05/08/17 MR#: [id number] Acct: [id number] Name: ROWENA JAQUEZ Rep #: [id number] : 1990 Provider: Shanthi Felton MD Age/Sex: 26/F Location: [facility] Status: Signed Intake Vital Signs05/08/17 Height 5 ft 4 in 05/08/17 Weight: 187 lb 05/08/17 Body Mass Index (BMI) 32.1 05/08/17 Blood Pressure 117/60 Intake Visit Reasons: 16 WEEKS Chief Complaint: est ob Sap Analyst Required: No Is patient in pain?: No [...] safe at home: Yes additional social history: [place] Pregancy History 3 Elective abortions Hx Para [...] F Source: SOFIA CULTURE, URINE 5:27 PM [facility] REPOSITORY Urine Culture ORGANISM 1: Staphylococcus epidermidis [place] Count >100,000 Staphylococcus epidermidis: REACTION Benzylpenicillin NF >=0.5 R Cefoxitin *NF + Inducable Clindamycin Resistan - Gentamicin $ <=0.5 S Levofloxacin $ <=0.12 S Linezolid $$$$ 1 S Nitrofurantoin $ <=16 S Oxacillin NF >=4 R Rifampin $$ <=0.5 S Tetracycline NF <=1 S Vancomycin $ 1 S (NF) indicates non-formulary drug at [facility]. Approval by Infectious Disease Specialist required before non-formulary drugs may be ordered and/or dispensed. * CLSI guidelines does not recommend testing of cephalosporins. This interpretation is deduced from Beta-lactam/penicillin results. Performed By: #### M100.0650 #### [facility] [address] [place], [address] MANAGER HAIR OFFICE VISIT Observed: 05/07/2017 Status: F Source: SOFIA REPORT 2:50 PM [facility] REPOSITORY [facility] [address] [place] [address] OFFICE VISIT Date of Service: 04/07/17 MR#: [id number] Acct: [id number] Name: WYATTROWENA GUILLEN Rep #: [id number] : 1990 Provider: Shanthi Felton MD Age/Sex: 26/F Location: [facility] Status: Signed Intake Vital [...] Period: 01/24/17 Zika: Zika virus screening: Negative [facility] Medical History Depression (Acute) Surgical History delivery delivered (Acute) Family History Grandfather Diabetes Heart disease Social History Smoking Status: Current every day smoker alcohol intake: never substance use type: does not use caffeine: Yes what type of physical activity do you participate in: none seatbelt use: sometimes do you feel safe at home: Yes additional social history: [employer] [place] Pregancy History 3 Elective abortions Hx Para [...] MD Cosigner Signature: Date (if applicable) CC: MANAGER HAIR OFFICE VISIT Observed: 04/07/2017 Status: F Source: SOFIA REPORT 3:35 PM [facility] [address] [place] [address] OFFICE VISIT Date of Service: 04/07/17 MR#: [id number] Acct: [id number] Name: ROWENA JAQUEZ Rep #: [id number] : 1990 Provider: Shanthi Felton MD Age/Sex: 26/F Location: [facility] Status: Signed Intake Vital [...] safe at home: Yes additional social history: [place] Pregancy History 3 Elective abortions Hx Para [...] 04/07/2017 Status: F Source: SOFIA 3:00 PM [facility] REPOSITORY TYPE CODE TESTS RESULT OUT OF [...] Lymph 2.45 Performed By: #### L100.0100 #### [facility] [address] [place], [address] RUBELLA IGG Collected: 04/07/2017 Status: F Source: SOFIA 3:00 PM [facility] REPOSITORY TYPE CODE TESTS RESULT OUT OF RANGE REFERENCE UNITS LAB L509.4000 IU/mL Normal Rubella IgG 46.4 Result Comment: Antibody results Interpretation of Immune Status < 5 IU/ml Presumed Non-immune 5 - < 10 IU/ml Equivocal > or = 10 IU/ml Presumed Immune Performed By: #### L509.4000 #### [facility] [address] [facility] [place], [address] TYPE AND SCREEN Collected: 04/07/2017 Status: F Source: SOFIA 3:00 PM [facility] REPOSITORY Order Comment: Reason for Type AND Screen/Red Cells: TYPE CODE TESTS RESULT OUT OF RANGE REFERENCE UNITS LAB B10.0800 A Normal BLOOD TYPE GEL NEGATIVE LAB B100.4000 Normal Antibody NEGATIVE Screen Performed By: #### B101.7450 #### [facility] [facility] [place], [address] RAPID PLASMIN REAGIN Collected: 04/07/2017 Status: F Source: SOFIA (RPR) 3:00 PM [facility] REPOSITORY TYPE CODE TESTS RESULT OUT OF REFERENCE UNITS RANGE LAB L700.5000 NONREACTIVE NONREACTIVE Normal RPR Performed By: #### L700.5000 #### [facility] [address] [place], [address] HEPATITIS B SURFACE Collected: 04/07/2017 Status: F Source: SOFIA AG 3:00 PM [facility] REPOSITORY TYPE CODE TESTS RESULT OUT OF RANGE REFERENCE UNITS LAB L3100.0400 Negative Normal HB Negative SURF AG Result Comment: Performed at: - [facility] [id number] Percussion Instructor: Charli Jacobs PhD, Phone: [phone] Performed By: #### L3100.0390, L3900.0100 #### [facility] (refer to report for specific site) refer to report for address and phone number HIV SCREEN 4TH GEN Collected: 04/07/2017 Status: F Source: SOFIA W/CONFIRM 3:00 PM [facility] REPOSITORY TYPE CODE TESTS RESULT OUT OF RANGE REFERENCE UNITS LAB L3900.0180 Non Reactive Normal HIV1/0/2 Non Reactive SCREEN Performed By: #### L3100.0390, L3900.0100 #### [facility] (refer to report for specific site) refer to report for address and phone number Observed: 03/21/2017 Status: F Source: EVANS CULTURE, URINE 7:39 PM [facility] REPOSITORY Urine Culture ORGANISM 1: Escherichia coli [place] Count 80,000-100,000 Escherichia coli: REACTION Amoxacillin/Clavulanic Acid [...] <=20 S (NF) indicates non-formulary drug at [facility]. Approval by Infectious Disease Specialist required before non-formulary drugs may be ordered and/or dispensed. Performed By: #### M100.0650 #### [facility] [address] [place], [place], [address] MANAGER HAIR OFFICE VISIT Observed: 03/21/2017 Status: F Source: SOFIA REPORT 12:02 PM [facility] REPOSITORY [facility] [address] [place] [address] OFFICE VISIT Date of Service: 03/21/17 MR#: [id number] Acct: [id number] Name: ROWENA JAQUEZ Rep #: [id number] : 1990 Provider: HEATHER Schroeder Age/Sex: 26/F Location: [facility] [place] [facility] Status: Signed Intake Intake [...] safe at home: Yes additional social history: [employer] [place] HPI UTI?: Details: ROWENA JAQUEZ is a [...] signed by Lyn OAKLEY> Date Lyn Schroeder FOREST FIRE PREVENTION MANAGER-C Cosigner Signature: Date (if applicable) CC: MANAGER HAIR OFFICE VISIT Observed: 03/19/2017 Status: F Source: SOFIA REPORT 11:59 PM [facility] [place] [address] [address] [place] [address] OFFICE VISIT Date of Service: 03/10/17 MR#: [id number] Acct: [id number] Name: ROWENA JAQUEZ Rep #: [id number] : 1990 Provider: Shanthi Felton MD Age/Sex: 26/F Location: [facility] Status: Signed Intake Vital Signs03/10/17 Height 5 ft 4 in 03/10/17 Weight: 180 lb 03/10/17 Body Mass Index (BMI) 30.9 03/10/17 Blood Pressure 120/69 Intake Visit Reasons: (OB) Chief Complaint: est ob Sap Analyst Required: No Is patient in pain?: Yes [...] safe at home: Yes additional social history: [place] [place] Pregancy History 3 Elective abortions Hx Para [...] Level of Care Code OB Routine 03/19/17 3557 <Electronically signed by Shanthi Felton MD> Date Shanthi Felton MD Cosigner Signature: Date (if applicable) CC: ALLERGIES ALLERGIES DATE TYPE / CODE NAME / CODE REACTION SEVERITY SOURCE 03/11/2018 Drug Penicillins/P35799 Hives Unknown [place] Allergy/416 6586(RXNORM) [facility] 402999([facility]) Repository 03/11/2018 Drug hydrocodone/J73451 Hives Unknown [place] Allergy/416 1554(RXNORM) Community 896229([facility] ED CT) Repository 03/11/2018 Drug acetaminophen/F006 Hives Unknown [place] Allergy/416 996097(RXNORM) Community 750350([facility] ED CT) Repository 03/11/2018 Drug naproxen/L05432716 Rash Unknown [place] Allergy/416 0(RXNORM) Community 353803([facility] ED CT) Repository 06/08/2017 Drug PENICILLINS [facility] Class/15619 Hospital 1003(SNOMED Repository CT) 03/24/2015 DRUG NAPROXEN RASH [facility] INGREDI/[address] [place] 155469(SNOM Repository ED CT) 08/29/2014 Drug PENICILLINS HIVES [facility] Class/45311 [address] [place] 1003(SNOMED Repository CT) ENCOUNTERS ENCOUNTERS ADMIT/DISCHARGE ACCOUNT ADMITTING ENCOUNTER LOCATION SOURCE NUMBER CLASS 03/16/2018/03/16/19 [id number] Ambulatory [address] Repository 03/11/2018/03/11/19 [id number] Emergency [address] ing:ED Repository 03/09/2018/03/10/19 [id number] Christine Coombs Ambulatory [address] ing:YC6Ayzf: Repository JJ406Htl: 1 12/29/2017/12/30/19 [id number] Manny Davis Emergency [address] ing:EDRoom: Repository [id number] 11/24/2017 [id number] Ambulatory [facility] ing:LABSPEC Repository 11/24/2017/11/25/19 [id number] Ambulatory BMSBuilding:B [place] 18 [facility] Repository 11/15/2017/11/16/19 [id number] Emergency [address] ing:ED Repository 10/18/2017/10/19/19 [id number] Ambulatory BMSBuilding:B [place] 18 [facility] Repository 10/17/2017 [id number] Ambulatory BMSBuilding:B [place] MS.[facility] Repository 10/12/2017/10/16/19 [id number] Alex, Inpatient [place] [facility] ing:WPRoom: Repository IU766Led: 1 2017 [id number] Олегalex, Ambulatory BMSBuilding:Joe Maki MS.CF.[facility] Repository 2017 [id number] Jarrodcristóbalalex, Ambulatory BMSBuilding:Joe Maki MS.CF[facility] Repository 2017 [id number] Alex, Ambulatory BMSBuilding:Joe Maki MS.CF.[facility] Repository 10/10/2017 [id number] Ambulatory BMSBuilding:B [place] MS.[facility] Repository 10/10/2017/10/11/19 [id number] Ambulatory BMSBuilding:B [place] 18 [facility] Repository 10/06/2017 [id number] Ambulatory BMSBuilding:Joe Black MS.CF.[facility] Repository 10/05/2017/10/06/19 [id number] [address] ing:WPOUT Repository 10/03/2017/10/04/19 [id number] Ambulatory BMSBuilding:B [place] 18 [facility] Repository 09/26/2017 [id number] Ambulatory BMSBuilding:B [place] MS.[facility] Repository 09/25/2017 [id number] Ambulatory [facility] ing:LABSPEC Repository 09/25/2017/09/26/19 [id number] Ambulatory BMSBuilding:B [place] 18 [facility] Repository 09/19/2017/09/20/19 [id number] Ambulatory [address] HospitalBuild Hospital ing:OPUS Repository 09/13/2017 [id number] Ambulatory [facility] ing:LAB Repository 09/13/2017/09/14/19 [id number] Ambulatory BMSBuilding:B [place] 18 [facility] Repository 08/29/2017/08/30/19 [id number] Ambulatory BMSBuilding:B [place] 18 [facility] Repository 08/27/2017/08/29/19 [id number] Ambulatory [address] Repository 08/21/2017 [id number] Ambulatory Building:[facility] Repository 08/20/2017/08/21/19 [id number] Ambulatory [address] Hospital ing:WPOUTRoom Repository : WP013 08/20/2017 [id number] Ambulatory BMSBuilding:W [facility] Repository 08/18/2017/08/19/19 [id number] Emergency [address] Hospital ing:ED Repository 08/15/2017/08/16/19 [id number] Ambulatory BMSBuilding:B [place] 18 [facility] Repository 08/11/2017/08/12/19 [id number] Ambulatory [address] Repository 08/07/2017/08/08/19 [id number] Emergency [address] Hospital ing:ED Repository 08/02/2017/08/03/19 [id number] Emergency [address] Hospital ing:ED Repository 08/01/2017/08/02/19 [id number] Ambulatory BMSBuilding:B [place] 18 [facility] Repository 07/24/2017 [id number] Ambulatory [facility] ing:US Repository 07/21/2017/07/22/19 [id number] Ambulatory BMSBuilding:B [place] 18 [facility] Repository 07/21/2017 [id number] Ambulatory [facility] ing:LAB Repository 07/19/2017/07/20/19 [id number] Ambulatory BMSBuilding:B [place] 18 [facility] Repository 07/10/2017/07/11/19 [id number] Ambulatory Building:[address] Repository 07/07/2017/07/08/19 [id number] Emergency [address] Hospital ing:ED Repository 06/21/2017 [id number] Ambulatory [facility] ing:LABSPEC Repository 06/21/2017/06/22/19 [id number] Ambulatory BMSBuilding:B [place] 18 [facility] Repository 06/19/2017 [id number] Ambulatory [facility] ing:EMPH Repository 06/08/2017/06/09/19 [id number] Ambulatory Building:[address] Repository 06/08/2017/06/09/19 [id number] Ambulatory Building:[address] Repository 06/06/2017 [id number] Ambulatory BMSBuilding:B [place] MS.[facility] Repository 05/26/2017 [id number] Ambulatory [facility] ing:US Repository 05/08/2017 [id number] Ambulatory [facility] ing:LABSPEC Repository 05/08/2017/05/09/19 [id number] Ambulatory BMSBuilding:B [place] 18 [facility] Repository 04/07/2017/04/07/19 [id number] Ambulatory BMSBuilding:B [place] 18 [facility] Repository 04/07/2017 [id number] Ambulatory [facility] ing:LAB Repository 03/21/2017 [id number] Ambulatory [facility] ing:LABSPEC Repository 03/21/2017/03/21/19 [id number] Ambulatory BMSBuilding:B [place] 18 [facility] Repository 03/10/2017 [id number] Ambulatory BMSBuilding:B [place] MS[facility] Repository PAYERS PAYERS ENCOUNTER GUARANTOR PAYER SUBSCRIBER SOURCE 03/11/2018 ROWENA Weeks Primary ROWENAMatti Black [id number] Insurance:[facility]: [facility] sun Number: [id number] [id number] Repository [address]Qyg: 330 Date:2018-03-11 O [phone] () [address]ATTN: [place] [address]IJ: 03/11/2018 Secondary NOT GIVENUNK [place] Insurance:SELF PAY [facility] Number: Effective Repository Date:2018-03-11 03/09/2018 ROWENA Weeks Primary ROWENA Weeks [place] [id number] Insurance:CARESOURCEP DURTSCHIDOB: [facility] sun Number: [id number] [id number] Repository [address]Jcs: (330) Date:2018-03-09P O [phone] () [address]ATTN: [place] [address]TR: 03/09/2018 Secondary NOT GIVENUNK [place] Insurance:SELF PAY [facility] Number: Effective Repository Date:2018-03-09 12/29/2017 ROWENA Weeks Primary ROWENA Weeks [place] [id number] Insurance:CARESOURCEP DURTSCHIDOB: [facility] Number: [id number] [id number] Repository [address]Gwu: (330) Date:2017-12-29P O [phone] () [address]ATTN: [place] [address]ZL: 12/29/2017 Secondary NOT GIVENUNK [place] Insurance:SELF PAY [facility] Number: Effective Repository Date:2017-12-29 11/24/2017 ROWENA Weeks Primary ROWENA Weeks [place] [id number] [place] Insurance:CARESOURCEP DURTSCHIDOB: [facility] Number: [id number] Hospital [address]Sjo: (330) [id number] Repository [phone] () Date:2017-11-24P [address]ATTN: [place] [address]BD: 11/24/2017 Secondary NOT GIVENUNK [place] Insurance:SELF PAY [facility] Number: Effective Repository Date:2017-11-24 11/24/2017 ROWENA Weeks Primary ROWENA Weeks [place] [id number] [place] Insurance:CARESOURCEP DURTSCHIDOB: [facility] Number: [id number] Hospital [address]Kox: 330 [id number] Repository [phone] () Date:2017-10-18P [address]ATTN: [place] [address]JR: 11/24/2017 Secondary NOT GIVENUNK [place] Insurance:SELF PAY [facility] Number: Effective Repository Date:2017-11-24 11/15/2017 ROWENA Weeks [facility] ROWENA Weeks [place] [id number] [place] Insurance:CARESOURCEP DURTSCHIDOB: [facility] Number: [id number] Hospital [address]Fnn: 330 [id number] Repository [phone] () Date:2017-11-15P [address]ATTN: [place] [address]QP: 11/15/2017 Secondary NOT GIVENUNK [place] Insurance:SELF PAY [facility] Number: Effective Repository Date:2017-11-15 10/18/2017 ROWENA Weeks [facility] ROWENA Weeks [place] [id number] [place] Insurance:CARESOURCEP DURTSCHIDOB: [facility] Number: [id number] Hospital [address]Mpp: (330 [id number] Repository [phone] () Date:2017-10-18P [address]ATTN: [place] [address]QY: 10/18/2017 Secondary NOT GIVENUNK [place] Insurance:SELF PAY [facility] Number: Effective Repository Date:2017-10-18 10/17/2017 ROWENA Weeks [facility] ROWENA Weeks [place] [id number] [place] Insurance:CARESOURCEP DURTSCHIDOB: [facility] Number: [id number] Hospital [address]Xve: (330 [id number] Repository [phone] () Date:2017-07-19P [address]ATTN: [place] [address]OY: 10/17/2017 Secondary NOT GIVENUNK [place] Insurance:SELF PAY [facility] Number: Effective Repository Date:2017-07-19 2017 ROWENA Weeks Primary ROWENA Weeks [place] [id number] [place] Insurance:CARESOURCEP DURTSCHIDOB: [facility] Number: [id number] Hospital [address]Bwk: 330 [id number] Repository [phone] () Date:2017-06-21P [address]ATTN: CLAIMS [facility] [place] [place] [address]CE: 2017 Secondary NOT GIVENUNK [place] Insurance:SELF PAY [facility] Number: Effective Repository Date:2017-06-21 2017 ROWENA Weeks Primary ROWENA Weeks [place] [id number] [place] Insurance:CARESOURCEP DURTSCHIDOB: [facility] Number: [id number] Hospital [address]Ngy: (330 [id number] Repository [phone] () Date:2017-06-21 [address]ATTN: [place] [address]IO: 2017 Secondary NOT GIVENUNK [place] Insurance:SELF PAY [facility] Number: Effective Repository Date:2017 2017 ROWENA Weeks Primary ROWENA Weeks [place] [id number] [place] Insurance:CARESOURCEP DURTSCHIDOB: [facility] Number: [id number] Hospital [address]Bqm: (330 [id number] Repository [phone] () Date:2017-06-21P [address]ATTN: CLAIMS [facility] [place] [address]BL: 2017 Secondary NOT GIVENUNK [place] Insurance:SELF PAY [facility] Number: Effective Repository Date:2017 2017 ROWENA Weeks Primary ROWENA Weeks [place] [id number] [place] Insurance:CARESOURCEP DURTSCHIDOB: [facility] Number: [id number] Hospital [address]Zvu: 330 [id number] Repository [phone] () Date:2017-06-21P [address]ATTN: [place] [address]OY: 2017 Secondary NOT GIVENUNK [place] Insurance:SELF PAY [facility] Number: Effective Repository Date:2017 10/10/2017 ROWENA Weeks Primary ROWENA Weeks [place] [id number] Insurance:CARESOURCEP DURTSCHIDOB: [facility] Number: [id number] Hospital [place], [place] [id number] Repository [address]Yqo: (330) Date:2017-07-19P O [phone] () [address]ATTN: [place] [address]EU: 10/10/2017 Secondary NOT GIVENUNK [place] Insurance:SELF PAY [facility] Number: Effective Repository Date:2017-07-19 10/10/2017 ROWENA Weeks Primary ROWENA Weeks [place] [id number] [place] Insurance:CARESOURCEP DURTSCHIDOB: [facility] Number: [id number] Hospital [address]Jpb: (330 [id number] Repository [phone] () Date:2017-09-13P [address]ATTN: [place] [address]YU: 10/10/2017 Secondary NOT GIVENUNK [place] Insurance:SELF PAY [facility] Number: Effective Repository Date:2017-09-13 10/06/2017 ROWENA Weeks Primary ROWENA Weeks [place] [id number] [place] Insurance:CARESOURCEP DURTSCHIDOB: [facility] Number: [id number] [facility] 60385Flf: ([id number] Repository [phone] () Date:2017-10-05[address] [address]WA: 10/06/2017 Secondary NOT GIVENUNK Sofia Insurance:SELF PAY [facility] Number: Effective Repository Date:2017-10-06 10/05/2017 ROWENA Weeks [facility] ROWENA Weeks Sof[place] [id number] [place] Insurance:CARESOURCEP DURTSCHIDOB: [facility] Number: [id number] Hospital 95796Kcy: (330 [id number] Repository [phone] () Date:2017-10-05[address] [address]FK: 10/05/2017 Secondary NOT GIVENUNK Sofia Insurance:SELF PAY [facility] Number: Effective Repository Date:2017-10-05 10/03/2017 ROWENA Weeks [facility] ROWENA Weeks [employer] [id number] [place] Insurance:CARESOURCEP DURTSCHIDOB: [facility] Number: [id number] Hospital 63287Voe: (330 [id number] Repository [phone] () Date:2017-07-19[address]ATTN: [place] [address]DL: 10/03/2017 Secondary NOT GIVENUNK [employer] Insurance:SELF PAY [facility] Number: Effective Repository Date:2017-09-29 09/26/2017 ROWENA Weeks [facility] ROWENA Weeks Sofia [id number] [place] Insurance:CARESOURCEP DURTSCHIDOB: [facility] Number: [id number] Hospital 12009Bjd: (330 [id number] Repository [phone] (HP) Date:2017-07-19[address]ATTN: [place] [address]DX: 09/26/2017 Secondary NOT GIVENUNK Sofia Insurance:SELF PAY [facility] Number: Effective Repository Date:2017-07-19 09/25/2017 ROWENA Weeks Primary ROWENA Weeks [place] [id number] [place] Insurance:CARESOURCEP DURTSCHIDOB: [facility] Number: [id number] Hospital 52957Liv: (330 [id number] Repository [phone] (HP) Date:2017-09-25[address]ATTN: [place] [address]MD: 09/25/2017 Secondary NOT GIVENUNK [employer] Insurance:SELF PAY [facility] Number: Effective Repository Date:2017-09-25 09/25/2017 ROWENA Weeks Primary ROWENA Weeks [place] [id number] [place] Insurance:CARESOURCEP DURTSCHIDOB: [facility] Number: [id number] Hospital 69681Tlo: (330 [id number] Repository [phone] () Date:2017-09-[address]N: [place] [address]YM: 09/25/2017 Secondary NOT GIVENUNK [employer] Insurance:SELF PAY [facility] Number: Effective Repository Date:2017-09-25 09/19/2017 ROWENA Weeks [facility] ROWENA Weeks Sofia [id number] [place] Insurance:CARESOURCEP DURTSCHIDOB: [facility] Number: [id number] Hospital 55497Hjd: (330) [id number] Repository [phone] (HP) Date:2017-09-13[address]N: [place] [address]MW: 09/19/2017 Secondary NOT GIVENUNK Sofia Insurance:SELF PAY [facility] Number: Effective Repository Date:2017-09-13 09/13/2017 ROWENA Weeks Primary ROWENA Weeks [employer] [id number] [place] Insurance:CARESOURCEP DURTSCHIDOB: [facility] Number: [id number] Hospital 86809Jux: (330 [id number] Repository [phone] () Date:2017-09-13[address]ATTN: [place] [address]SA: 09/13/2017 Secondary NOT GIVENUNK [employer] Insurance:SELF PAY [facility] Number: Effective Repository Date:2017-09-13 09/13/2017 ROWENA Weeks Primary ROWENA Weeks [employer] [id number] Insurance:CARESOURCEP DURTSCHIDOB: [facility] Number: [id number] [id number] Repository [phone]: (330) Date:2017-07-19P O [phone] () [address]ATTN: [place] [address]JB: 09/13/2017 Secondary NOT GIVENUNK Sofia Insurance:SELF PAY [facility] Number: Effective Repository Date:2017-07-19 08/29/2017 ROWENA Weeks [facility] ROWENA Weeks [employer] [id number] Insurance:CARESOURCEP DURTSCHIDOB: [facility] Number: [id number] [id number] Repository [address]Eyn: (330) Date:2017-07-19P O [phone] () [address]ATTN: [place] [address]CQ: 08/29/2017 Secondary NOT GIVENUNK [employer] Insurance:SELF PAY [facility] Number: Effective Repository Date:2017-08-29 08/21/2017 ROWENA [facility] ROWENA [facility] DURTSCHIDOB: Insurance:CARESOURCEP DURTSCHIDOB: [facility] Number: [id number] [address] [id number] [facility] [address], Date: [facility] [address]Fmm: [place] [address] () 08/20/2017 ROWENA Weeks Primary ROWENA Weeks [employer] [id number] Insurance:CARESOURCEP DURTSCHIDOB: [facility] Number: [id number] [facility] [place] [id number] Repository [address]Bvf: ([phone]) Date:2017-08-20P O [phone] () [address]ATTN: [place] [address]LA: 08/20/2017 Secondary NOT GIVENUNK Sofia Insurance:SELF PAY [facility] Number: Effective Repository Date:2017-08-20 08/20/2017 ROWENA Weeks Primary ROWENA Weeks [place] [id number] Insurance:CARESOURCEP DURTSCHIDOB: [facility] Number: [id number] [facility] [place], [place] [id number] Repository [address]Ynv: 330) Date:2017-08-20P O [phone] () [address]ATTN: [place] [address]KI: 08/20/2017 Secondary NOT GIVENUNK Sofia Insurance:SELF PAY [facility] Number: Effective Repository Date:2017-08-20 08/18/2017 ROWENA Weeks Primary ROWENA Weeks [place] [id number] Insurance:OBWC DURTSCHIDOB: [facility] [id number] Number: Repository [address]Nus: ([phone]) [id number] [phone] () Date:[id number]ZQDGTGJZ, [place] [address]FL: 08/18/2017 Secondary ROWENA M Sofia Insurance:CARESOURCEP DURTSCHIDOB: [facility] Number: [id number] Hospital [id number] Repository Date:2017-08-18[address]ATTN: [place] [address]AE: 08/18/2017 Tertiary NOT GIVENUNK Sofia Insurance:SELF PAY [facility] Number: Effective Repository Date:2017-08-18 08/15/2017 ROWENA Weeks Primary ROWENA Weeks [employer] [id number] Insurance:CARESOURCEP DURTSCHIDOB: Community JAMES DAYDAY sun Number: [id number] [facility] [place] [id number] Repository [address]Xwh: (330) Date:2017-07-19P O [phone] () [address]ATTN: [place] [address]RX: 08/15/2017 Secondary NOT GIVENUNK Sofia Insurance:SELF PAY [facility] Number: Effective Repository Date:2017-08-15 08/07/2017 ROWENA Weeks Primary ROWENA Weeks [employer] [id number] Insurance:CARESOURCEP DURTSCHIDOB: [facility] JAMES sun Number: [id number] [id number] Repository [address]Kqe: (330) Date:2017-08-07P O [phone] () [address]ATTN: [place] [address]JJ: 08/07/2017 Secondary NOT GIVENUNK [employer] Insurance:SELF PAY [facility] Number: Effective Repository Date:2017-08-07 08/02/2017 ROWENA Weeks Primary ROWENA Weeks [employer] [id number] Insurance:CARESOURCEP DURTSCHIDOB: Community JAMES sun Number: [id number] [facility] [place], [place] [id number] Repository [address]Yhe: ([phone]) Date:2017-08-02P O [phone] () [address]ATTN: [place] [address]BS: 08/02/2017 Secondary NOT GIVENUNK Sofia Insurance:SELF PAY [facility] Number: Effective Repository Date:2017-08-02 08/01/2017 ROWENA Weeks Primary ROWENA Weeks Sof[place] [id number] Insurance:CARESOURCEP DURTSCHIDOB: Community JAMES DAYDAY sun Number: [id number] [id number] Repository [address]Apa: (330) Date:2017-07-19P O [phone] (HP) [address]ATTN: [place] [address]OZ: 08/01/2017 Secondary NOT GIVENUNK Sofia Insurance:SELF PAY [facility] Number: Effective Repository Date:2017-08-01 07/24/2017 ROWENA Weeks Primary ROWENA Weeks [place] [id number] Insurance:CARESOURCEP DURTSCHIDOB: Community JAMES sun Number: [id number] [id number] Repository [address]Tym: (330) Date:2017-07-19P O [phone] (HP) [address]ATTN: [place] [address]JU: 07/24/2017 Secondary NOT GIVENUNK [employer] Insurance:SELF PAY [facility] Number: Effective Repository Date:2017-07-19 07/21/2017 ROWENA Weeks Primary ROWENA Weeks [employer] [id number] Insurance:CARESOURCEP DURTSCHIDOB: Community JAMES DAYDAY sun Number: [id number] [id number] Repository [address]19[address]Ilm: (330) Date:2017-07-21P O [phone] (HP) [address]ATTN: CLAIMS [facility] [place] [address]PE: 07/21/2017 Secondary NOT GIVENUNK [place] Insurance:SELF PAY [facility] Number: Effective Repository Date:2017-07-21 07/21/2017 ROWENA Weeks Primary ROWENA Black [id number] [place] Insurance:CARESOURCEP DURTSCHIDOB: [facility] Number: [id number] Hospital 488[address]Miv: 330 [id number] Repository [phone] () Date:2017-07-21[address]ATTN: [place] [address]EH: 07/21/2017 Secondary NOT GIVENUNK [employer] Insurance:SELF PAY [facility] Number: Effective Repository Date:2017-07-21 07/19/2017 ROWENA Weeks Primary ROWENA Black [id number] [place] Insurance:CARESOURCEP DURTSCHIDOB: [facility] Number: [id number] Hospital 55642Gik: (373) [id number] Repository [phone] () Date:2017-06-21[address]ATTN: [place] [address]WR: 07/19/2017 Secondary NOT GIVENUNK Sofia Insurance:SELF PAY [facility] Number: Effective Repository Date:2017-06-21 07/10/2017 ROWENA Peters [facility] DURTSCHIDOB: Insurance:CARESOURCEP DURTSCHIDOB: [facility] Number: [id number] [id number] [place] Date: [facility] [address]Bfv: ([phone]) [place], [place] [phone] () [phone] 07/07/2017 ROWENA Weeks Primary ROWENA Black [id number] [place] Insurance:CARESOURCEP DURTSCHIDOB: [facility] Number: [id number] Hospital 200[address]Ytd: (760) [id number] Repository [phone] () Date:2017-07-07[address]ATTN: [facility] [address]TV: 07/07/2017 Secondary NOT GIVENUNK [employer] Insurance:SELF PAY [facility] Number: Effective Repository Date:2017-07-07 06/21/2017 ROWENA Weeks Primary ROWENA Weeks Sofia [id number] Insurance:CARESOURCEP DURTSCHIDOB: [facility] oly Number: [id number], [place] [id number] Repository [address]Wwt: ([phone]) Date:2017-06-21P O [phone] () [address]ATTN: [place] [address]VO: 06/21/2017 Secondary NOT GIVENUNK [employer] Insurance:SELF PAY [facility] Number: Effective Repository Date:2017-06-21 06/21/2017 ROWENA Weeks Primary ROWENA Weeks Sofia [id number] Insurance:CARESOURCEP DURTSCHIDOB: [facility] Number: [id number], [place] [id number] Repository [address]Tzk: ([phone]) Date:2017-06-06P O [phone] () [address]ATTN: [place] [address]MW: 06/21/2017 Secondary NOT GIVENUNK [employer] Insurance:SELF PAY [facility] Number: Effective Repository Date:2017-06-21 06/19/2017 ROWENA Weeks Primary NOT GIVENUNK Sofia [id number] Insurance[place]SELF [place] Number: Effective Repository [phone]: ([phone]) Date:2017-06-02 [phone] (HP) 06/08/2017 ROWENA Primary [facility] DURTSCHIDOB: Insurance:CARESOURCEP DURTSCHIDOB: [facility] olicy Number: [id number] [facility] [id number] [place] Date: [address] [address]Ovu: ([phone]) [place], [place] [phone] (HP) [phone] 06/08/2017 ROWENA [facility] DURTSCHIDOB: Insurance:CARESOURCEP DURTSCHIDOB: [facility] Number: [id number] Repository [facility] [id number] [place] Date: [address] [address]Fjn: ([phone]) [place], [place] [phone] (HP) [phone] 06/06/2017 ROWENA Weeks Primary ROWENA Weeks [employer] [id number] Insurance:CARESOURCEP DURTSCHIDOB: [facility] Number: [id number], [place] [id number] Repository [address]Wje: ([phone]) Date:2017-05-08P O [phone] () [address]ATTN: [place] [address]KP: 06/06/2017 Secondary NOT GIVENUNK [employer] Insurance:SELF PAY [facility] Number: Effective Repository Date:2017-05-08 05/26/2017 ROWENA Weeks Primary ROWENA Weeks Sofia [id number] Insurance:CARESOURCEP DURTSCHIDOB: [facility] Number: [id number], [place] [id number] Repository [address]Buo: ([phone]) Date:2017-05-10P O [phone] () [address]ATTN: [place] [address]XP: 05/26/2017 Secondary NOT GIVENUNK [employer] Insurance:SELF PAY [facility] Number: Effective Repository Date:2017-05-10 05/08/2017 ROWENA Weeks Primary ROWENA Weeks Sofia [id number] [address] Insurance:CARESOURCEP DURTSCHIDOB: [facility] Number: [id number], [place] [id number] Repository [address]Tqh: ([phone]) Date:2017-05-08P O [phone] () [address]ATTN: [place] [address]EV: 05/08/2017 Secondary NOT GIVENUNK [employer] Insurance:SELF PAY [facility] Number: Effective Repository Date:2017-05-08 05/08/2017 [facility] ROWENA Black [id number] [place] Insurance:CARESOURCEP DURTSCHIDOB: [facility] Number: [id number] Hospital [address]Rqw: ([phone]) [id number] Repository [phone] () Date:2017-04-07 [address]ATTN: [place] [address]SH: 05/08/2017 Secondary NOT GIVENUNK Sofia Insurance:SELF PAY [facility] Number: Effective Repository Date:2017-04-07 04/07/2017 [facility] ROWENA Black [id number] W Insurance:CARESOURCEP DURTSCHIDOB: [facility] Number: [id number], [place] [id number] Repository [address]Sea: ([phone]) Date:2017-04-07 O [phone] () [address]ATTN: [place] [address]OD: 04/07/2017 Secondary NOT GIVENUNK [employer] Insurance:SELF PAY [facility] Number: Effective Repository Date:2017-04-07 04/07/2017 [facility] [id number] W Insurance:CARESOURCEP DURTSCHIDOB: [facility] Number: [id number], [place] [id number] Repository 331[address]Bru: (419) Date:2017-04-07 O [phone] () [address]ATTN: [place] [address]VO: 04/07/2017 Secondary NOT GIVENUNK Sofia Insurance:SELF PAY [facility] Number: Effective Repository Date:2017-04-07 03/21/2017 ROWENA Primary ROWENAMELVINA Black [id number] W Insurance:CARESOURCEP DURTSCHIDOB: Community [facility] sun Number: [id number], [place] [id number] Repository [address]Imh: (419) Date:2017-03-21P O [phone] () [address]ATTN: [place] [address]JO: 03/21/2017 Secondary NOT GIVENUNK [employer] Insurance:SELF PAY [facility] Number: Effective Repository Date:2017-03-21 03/21/2017 ROWENA Primary ROWENAMELVINA [id number] W Insurance:CARESOURCEP DURTSCHIDOB: [facility] sun Number: [id number], [place] [id number] Repository [address]Hqs: (419) Date:2017-03-20P O [phone] () [address]ATTN: [place] [address]RG: 03/21/2017 Secondary NOT GIVENUNK Sofia Insurance:SELF PAY [facility] Number: Effective Repository Date:2017-03-20 03/10/2017 ROWENA Primary NOT GIVENUNK [employer] [id number] W Insurance:SELF PAY [place] Number: Effective Repository [phone]: ([phone]) Date:2017-02-27 [phone] ()
== END 2018-03-11 13:13 | disposition home or self-care (01) ==
PROVIDERS: Emergency Provider Emergency Medicine; Family Provider Internal Medicine; PCP Internal Medicine
DX: G89.18 Other acute postprocedural pain (principal); R10.11 Right upper quadrant pain
CPT/HCPCS: 80048; 80076; 83690; 85025; 96361; 96374; 96375; 99284; J7030; A4216; J2405

== ENCOUNTER 2018-03-21 09:26 | Emergency (ER) | payer MEDICAID, SELFPAY ==
[2018-03-21 09:27] VITALS: BP 131/72; PULSE 77; RESP 16; TEMP 36.8; O2SAT 100; BMI 30.6
--- NOTE | 2018-03-21 09:42 | CT_ITS ---
STUDY: CT ABDOMEN AND PELVIS WITH CONTRAST REASON FOR EXAM: Female, 27 years old. Right-sided pain following a fall. Recent cholecystectomy. RADIATION DOSAGE (If Supplied By Facility): CTDIvol = ( 14.65 ) mGy, DLP = ( 966.61 ) mGycm TECHNIQUE: Transaxial images were obtained from the dome of the diaphragm to the symphysis pubis with oral contrast. 100mL ml of Isovue 300 contrast was administered. Sagittal and coronal images were reconstructed. Individualized dose optimization techniques were used for this CT. COMPARISON: Comparison is made with prior study dated July 29, 2016. FINDINGS: The visualized lung bases are unremarkable. The visualized portions of the heart are within normal limits. Normal liver. The patient is status post cholecystectomy. Normal spleen. Normal pancreas. Normal bilateral adrenal glands. Normal right kidney. Tiny nonobstructive calculus in the lower pole calyx of the left kidney. Normal visualized stomach. Normal small intestine. Normal colon. The appendix is visualized and appears normal. Normal abdominal aorta. Normal inferior vena cava. Normal retroperitoneum. Normal urinary bladder. Follicles are seen in both ovaries. There is a small umbilical hernia containing fat. Normal osseous structures. CT/Abdomen/Pelvis W IV Cont ONLY IMPRESSION: Status post cholecystectomy. Follicles are seen in both ovaries. Electronically Signed: Memo Carroll MD at 11:20 EST , Service support ,
--- NOTE | 2018-03-21 09:43 | RAD_ITS ---
STUDY: X-RAY - UNILATERAL RIBS ( RIGHT ) WITH CHEST REASON FOR EXAM: Female, 27 years old. ] Pain following a fall. TECHNIQUE - RIBS: 3 view(s) of the ribs. TECHNIQUE - CHEST: Single PA view of the chest. COMPARISON: Comparison is made with prior chest radiograph dated July 23, 2016. FINDINGS - RIBS: Normal visualized ribs without a demonstrated fracture. FINDINGS - CHEST: The lungs are clear and expanded. There is no demonstrated pleural abnormality. Normal size heart. Normal mediastinum and cristina. Normal visualized pulmonary arteries. Normal visualized aortic arch and descending thoracic aorta. Normal visualized thoracic spine. Normal visualized ribs, clavicles, and shoulders. There is no demonstrated abnormality of the visualized soft tissue structures of the upper abdomen. RAD/Ribs Uni Min 3V w/PA Chest IMPRESSION: RIBS: Normal x-ray examination of the ribs. CHEST: Normal x-ray examination of the chest. Electronically Signed: Memo Carroll MD at 11:17 EST , Service support ,
[2018-03-21 10:09] LABS: Absolute Lymphocyte Count 2.73 X10^3/ul (0.83-4.51); Absolute Neutrophil Count 2.1 X10^3/uL (2.0-7.7); Basophil# 0.03 X10^3/uL; Basophil% 0.5 % (0-1); Eosinophil# 0.36 X10^3/uL; Eosinophils% 6.3 % (0-5); Hematocrit 35.1 % (37-47); Hemoglobin 11.3 g/dl (12.0-15.0); Lymphocyte # 2.73 X10^3/ul (4.0); Lymphocyte % 47.6 % (19-41); Mean Corp Hgb Conc 32.2 g/gl (32-36); Mean Corpuscular Hgb 27.1 pg (27.0-32.0); Mean Corpuscular Volume 84.2 fL (81-99); Mean Platelet Vol. 9.5 fl (6.2-12.0); Monocyte# 0.53 X10^3/uL; Monocyte% 9.2 % (0-10); Neutrophil # 2.08 X10^3/uL (2.7-7.7); Neutrophil % 36.2 % (47-70); Platelet Count 371 K/mm3 (150-450); RBC Distribution Width CV 13.1 % (11.6-14.6); RBC Distribution Width SD 39.8 fl (35.1-43.9); Red Blood Count 4.17 M/mm3 (4.2-5.4); White Blood Count 5.7 K/mm3 (4.4-11.0)
[2018-03-21] MEDS: Morphine 4 MG/ML Syringe IV (10:10)
[2018-03-21] MEDS: 0.9% Normal Saline 1,000 ML 150 ML IV (10:10)
[2018-03-21] MEDS: Ondansetron 4 MG/2 ML Vial IV (10:10)
[2018-03-21 10:13] LABS: POSITIVE COUNT NO; POSITIVE DIFFERENTIAL NO; POSITIVE MORPHOLOGY NO
[2018-03-21 10:16] LABS: ALB/GLOB Ratio 0.9 RATIO (0.9-2.4); AST(SGOT) 16 U/L (15-37); Alanine Aminotransfer ALT/SGPT 19 U/L (13-56); Albumin, Serum 3.9 g/dL (3.2-5.0); Alkaline Phosphatase 68 U/L (45-117); Anion Gap 7 (5-15); BUN 13 mg/dL (7-18); Calcium,Total 8.3 mg/dL (8.5-10.1); Chloride 109 mmol/L (98-107); Creatinine, Serum 0.69 mg/dL (0.55-1.02); EST Glomerular Filtration Rate 107 mL/min (>60); Est Glom Filt Rate - Afr Amer 130 mL/min (>60); Estimated Creatinine Clearance 103.88 ml/min; Globulin 4.2 g/dL (2.2-4.2); Glucose 77 mg/dL (74-106); Potassium 3.7 mmol/L (3.5-5.1); Protein, Total 8.1 g/dL (6.4-8.2); Sodium Level 141 mmol/L (136-145)
[2018-03-21 11:21] LABS: Pregnancy, Serum, hCG Quali. NEGATIVE Negative (0-9 Nonpreg)
--- NOTE | 2018-03-21 11:34 | ED.VISSUMM ---
- ER Visit Summary Date of Service: 03/21/18 Chief Complaint: Fall] History of Present Illness: The patient is a 27 F [ presents to the emergency department after sustaining a fall this morning. Patient states that she slipped on the ice and kind of fell onto the right side of her body. Patient denies striking her head or loss of consciousness. Patient is concerned because she had surgery on 09 March to have her gallbladder removed. Patient has a history of PCO S. She denies any shortness of breath. She denies any pain radiating into her legs.] Physical Examination: [HEENT-PERRLA, EOMI. Cranial nerves II through XII grossly intact. TMs clear. Mucous membranes moist. No adenopathy. No C-spine tenderness on palpation. Cardiovascular-regular rate and rhythm without murmur or ectopy Lungs-clear to auscultation, chest wall stable without crepitus or subcu emphysema. Patient does have tenderness to the posterior lower right ribs without any evidence of ecchymosis or bruising noted. Abdomen-normoactive bowel sounds, soft. Patient has tenderness to the right upper quadrant with some mild guarding. There is no rebound, rigidity, or perineal signs. She does have some mild CVA tenderness on the right. Extremities-intact ?4, normal range of motion, normal pulses, atraumatic] Test Results: [CBC with differential obtained showed a white count of 5.7, hemoglobin 11, hematocrit 35, platelets 371. Chemistries unremarkable. HCG was negative. X-rays of the right ribs and chest x-ray obtained were normal. Patient also had a CT scan with IV contrast of the abdomen pelvis showed her to be status post cholecystectomy otherwise no acute evidence of trauma.] Emergency Department Course and Treatment: [Patient was given morphine and Zofran] Treatment Plan: [Patient will be given a prescription for Percocet for pain.] Disposition: [Discharged home in stable condition] Impression: [Mechanical fall Contusion back/ribs] This note was generated with [employer] dictation software. It may contain incorrect words, spelling, and punctuation that were not noted in review of the chart prior to signing ED Disposition - Plan for ED Patient: Chief Complaint: Flank Pain Referrals: Lili Goddard MD [Primary Care Provider] -
--- NOTE | 2018-03-21 11:37 | ED.DCSUM_ITS ---
- ER Visit Summary Date of Service: 03/21/18 Chief Complaint: Fall] History of Present Illness: The patient is a 27 F [ presents to the emergency department after sustaining a fall this morning. Patient states that she slipped on the ice and kind of fell onto the right side of her body. Patient denies striking her head or loss of consciousness. Patient is concerned because she had surgery on 09 March to have her gallbladder removed. Patient has a history of PCO S. She denies any shortness of breath. She denies any pain radiating into her legs.] Physical Examination: [HEENT-PERRLA, EOMI. Cranial nerves II through XII grossly intact. TMs clear. Mucous membranes moist. No adenopathy. No C-spine tenderness on palpation. Cardiovascular-regular rate and rhythm without murmur or ectopy Lungs-clear to auscultation, chest wall stable without crepitus or subcu emphysema. Patient does have tenderness to the posterior lower right ribs without any evidence of ecchymosis or bruising noted. Abdomen-normoactive bowel sounds, soft. Patient has tenderness to the right u pper quadrant with some mild guarding. There is no rebound, rigidity, or perineal signs. She does have some mild CVA tenderness on the right. Extremities-intact ?4, normal range of motion, normal pulses, atraumatic] Test Results: [CBC with differential obtained showed a white count of 5.7, hemoglobin 11, hematocrit 35, platelets 371. Chemistries unremarkable. HCG was negative. X-rays of the right ribs and chest x-ray obtained were normal. Patient also had a CT scan with IV contrast of the abdomen pelvis showed her to be status post cholecystectomy otherwise no acute evidence of trauma.] Emergency Department Course and Treatment: [Patient was given morphine and Zofran] Treatment Plan: [Patient will be given a prescription for Percocet for pain.] Disposition: [Discharged home in stable condition] Impression: [Mechanical fall Contusion back/ribs] This note was generated with [employer] dictation software. It may contain incorrect words, spelling, and punctuation that were not noted in review of the chart prior to signing ED Disposition - Plan for ED Patient: Chief Complaint: Flank Pain Referrals: Lili Goddard MD [Primary Care Provider] -
--- NOTE | 2018-03-21 11:37 | ED.DEP ---
ED Disposition - Plan for ED Patient: Chief Complaint: Flank Pain Instructions: ED Mechanical Fall, ED Contusion Back Prescriptions: Oxycodone HCl/Acetaminophen [Percocet 5/325] 1 tab PO Q6H PRN PRN 3 Days #12 tab PRN Reason: Pain Referrals: Lili Goddard MD [Primary Care Provider] - 3-5 Days
[2018-03-21 11:58] VITALS: BP 115/59; PULSE 65; RESP 17
== END 2018-03-21 12:02 | disposition home or self-care (01) ==
PROVIDERS: Emergency Provider Emergency Medicine; Family Provider Internal Medicine; PCP Internal Medicine
DX: S30.0XXA Contusion of lower back and pelvis, initial encounter (principal); Z98.890 Other specified postprocedural states; W00.0XXA Fall on same level due to ice and snow, initial encounter; Y93.89 Activity, other specified; Y92.89 Other specified places as the place of occurrence of the external cause; Y99.8 Other external cause status; Z72.0 Tobacco use
CPT/HCPCS: 71101; 74177; 80053; 84703; 85025; 96361; 96374; 96375; 99283; Q9967; A4216; J2405

== ENCOUNTER 2018-05-13 17:04 | Emergency (ER) | payer MEDICAID, SELFPAY ==
[2018-05-13 17:05] VITALS: BP 147/73; PULSE 106; RESP 18; TEMP 36.9; O2SAT 99; BMI 31.0
--- NOTE | 2018-05-13 17:20 | RAD_ITS ---
STUDY: X-RAY - RIGHT WRIST REASON FOR EXAM: Female, 27 years old. Wrist pain. TECHNIQUE: 3 view(s) of the wrist were obtained. COMPARISON: None. FINDINGS: Normal visualized distal radius and ulna. Normal radiocarpal articulation. Normal distal radioulnar articulation. Normal carpal bones. Normal carpal articulations. Normal carpometacarpal articulation of the thumb. Normal second through fifth carpometacarpal articulations. Normal visualized metacarpal bones. The soft tissue structures are unremarkable. RAD/Wrist min 3 Views IMPRESSION: Normal x-ray examination of the wrist. Electronically Signed: Xavier Dennis MD at 18:19 EDT , Service support ,
--- NOTE | 2018-05-13 18:39 | ED.VISSUMM ---
- ER Visit Summary Date of Service: 05/13/18 Chief Complaint: Right wrist pain History of Present Illness: The patient is a 27 F with chronic right wrist pain secondary to carpal tunnel. Patient was seen previously and referred to Dr. Carson, but is waiting for her to return for maternity leave to be seen. 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 She presents with increased pain over the dorsal side of her wrist now. She denies paresthesias. Physical Examination: Vital signs unremarkable. Patient sitting on the end of the bed in no acute distress. Right upper extremity examination does reveal tenderness to palpation of the carpal tunnel of the right wrist. She also has tenderness of the dorsal aspect of the right wrist and along the tendons in the distal forearm. She has normal cap refill in all digits. She has normal sensation and full range of motion. Test Results: Right wrist x-rays were obtained per nursing protocol and unremarkable. Emergency Department Course and Treatment: Patient was encouraged to wear her cockup splint. She will be given a course of prednisone to help with inflammation. She will continue ibuprofen and Tylenol. She requested something stronger for pain but I encouraged her to continue the anti-inflammatories and steroid. Treatment Plan: [] Disposition: Discharge Impression: 1. Carpal tunnel right wrist 2. Tendinitis right wrist This note was generated with [employer] dictation software. It may contain incorrect words, spelling, and punctuation that were not noted in review of the chart prior to signing ED Disposition - Plan for ED Patient: Referrals: Lili Goddard MD [Primary Care Provider] -
--- NOTE | 2018-05-13 18:40 | ED.DEP ---
ED Disposition - Plan for ED Patient: Disposition: Home or Assisted Living Prescriptions: Prednisone 10 mg PO UD #33 tablet Referrals: Llii Goddard MD [Primary Care Provider] - Nathalia Carson DO [STAFF PHYSICIAN] - As soon as possible
[2018-05-13] MEDS: predniSONE 20 MG Tablet 60 MG PO (18:47)
[2018-05-13 18:48] VITALS: PULSE 98; RESP 17; O2SAT 98
== END 2018-05-13 18:49 | disposition home or self-care (01) ==
PROVIDERS: Emergency Provider Emergency Medicine; Family Provider Internal Medicine; PCP Internal Medicine
DX: G56.01 Carpal tunnel syndrome, right upper limb (principal); M77.9 Enthesopathy, unspecified; Z72.0 Tobacco use
CPT/HCPCS: 73110; 99283

== ENCOUNTER 2018-07-03 06:29 | Emergency (ER) | payer MEDICAID, SELFPAY ==
[2018-06-05 09:50] VITALS: BMI 31.0
[2018-07-03 06:30] VITALS: BP 151/74; PULSE 98; RESP 16; TEMP 36.2; O2SAT 98; BMI 27.4
--- NOTE | 2018-07-03 06:39 | ED.VIS.GEN ---
History of Present Illness Chief Complaint: Dental Informant: Patient Narrative: Stated for the last 3 days she has had a pain in her right upper tooth. She has been taking ibuprofen for it. She cannot get into her dentist for 2 weeks. Food and drinking makes it worse. Is noticed a little bit of swelling in her right cheek. Allergic to penicillins. Current severity is mild. - Past Medical History (1) Depression Status: Chronic (2) PCOS (polycystic ovarian syndrome) Status: Chronic Past Medical History - Allergies and Home Meds Allergies/Adverse Reactions: Allergies acetaminophen [From [place]] Allergy (Verified 07/03/18 06:33) Hives hydrocodone [From [place]] Allergy (Verified 07/03/18 06:33) Hives naproxen Allergy (Verified 07/03/18 06:33) Rash Penicillins Allergy (Verified 07/03/18 06:33) Hives also has hematemesis Primary Care Physician: Lili Goddard MD [Primary Care Provider] - Prior records reviewed: Yes Surgical History: noncontributory, - Smoking Status: Former smoker Alcohol: None Drugs: None - Family History Maternal Family History: Family History (Last Reviewed 11/24/17 @ 14:43 by Syl Lincoln) Grandfather Diabetes Heart disease Family History: Reports: No pertinent history Paternal Family History: Family History (Last Reviewed 11/24/17 @ 14:43 by Syl Lincoln) Grandfather Diabetes Heart disease Family History: Reports: No pertinent history Review of Systems General: Denies: Chills, Fever, Sweats Eyes: Denies: Visual changes - bilaterally, Diplopia ENT: Reports: - - See HPI. Denies: Rhinorrhea, Sore throat Cardiovascular: Denies: Chest pain, Palpitations Respiratory: Denies: Dyspnea, Cough, Dyspnea on exertion Gastrointestinal: Denies: Abdominal pain, Nausea, Vomiting, Diarrhea, Melena, Hematochezia Genitourinary: Denies: Dysuria, Hematuria, Frequency Musculoskeletal: Denies: Back pain, Extremity Pain Skin: Denies: Rash, Wounds Neurological: Denies: Headache, Weakness, Numbness Physical Exam Vital Signs/Narrative: Vital Signs Temp Pulse Resp BP Pulse Ox 07/03/18 06:30 97.1 F L 98 16 151/74 H 98 General: Well nourished, Well developed, No Acute Distress Head: Normocephalic, Atraumatic Eyes: Perrl, EOMI ENT: Moist mucous membranes, No rhinorrhea, - - Right upper posterior premolar. No gumline swelling or abscess. Mild cheek swelling. No abscess. No ANUG or Obi's angina Neck: Supple, Nontender Cardiovascular: Regular rate, Regular rhythm, No murmurs Respiratory: No distress, CTA bilaterally, Chest nontender Abdomen: Soft, Nontender, Nondistended, Normal bowel sounds Back: Nontender, Normal Inspection Extremities: Nontender, No edema Skin: Normal color, No rash Neurological: Alert, Oriented x3, Cranial nerves II-XII grossly intact, Normal Strength, Normal Sensation Psychological: Normal affect, Normal Mood Diagnostic/Tx/Re-eval - Medical Decision Making Patient given clindamycin for suspected pulpitis early periapical abscess of her right upper premolar. She will use ice. Given a short course of Percocet for home. We will follow-up with her dentist. We will continue antibiotics ED Disposition - Plan for ED Patient: Diagnosis: Dental abscess Instructions: ED Abscess Dental Prescriptions: Oxycodone HCl/Acetaminophen [Percocet 5/325] 1 - 2 tab PO Q6H PRN PRN 3 Days #8 tab PRN Reason: Pain Clindamycin HCl [Cleocin] 300 mg PO Q6H #28 cap Referrals: Lili Goddard MD [Primary Care Provider] -
[2018-07-03] MEDS: Clindamycin HCl 150 MG Capsule 300 MG PO (06:42)
== END 2018-07-03 06:48 | disposition home or self-care (01) ==
PROVIDERS: Emergency Provider Emergency Medicine; Family Provider Internal Medicine; PCP Internal Medicine
DX: K04.7 Periapical abscess without sinus (principal); Z87.891 Personal history of nicotine dependence
CPT/HCPCS: 99283

== ENCOUNTER → 2018-08-01 | Outpatient (CLI) | payer MEDICAID, SELFPAY ==
[2018-05-21 14:58] VITALS: BMI 31.0
[2018-07-03 06:30] VITALS: BMI 27.4
--- NOTE | 2018-08-01 10:27 | NEURO_ITS ---
NCS and/or EMG Patient Report Ordering Doctor: Deo Calderon DATE OF SERVICE: 08/01/18 This is a right upper extremity EMG and nerve conduction study performed on this 27-year-old female with a one-year history of numbness tingling and pain involving all fingers of her right upper extremity. She is healthy otherwise. She has used wrist splints at night which is been of limited benefit. Is no neck pain. Right upper extremity sensory and motor nerve conduction studies performed demonstrating mild prolongation of the median motor and sensory distal latencies with preservation of amplitudes and conduction velocities. The ulnar motor and sensory and radial sensory responses are normal. The right median F wave lat ency is very mildly prolonged compared to the ulnar F-wave latency. Right upper extremity needlelike tomography is performed. Muscles evaluate include the abductor pollicis brevis, first dorsal interosseous, regular radialis, biceps, triceps and deltoid muscles. The abductor pollicis brevis muscle did demonstrate 1+ fibrillation potentials. Insertional activity was otherwise normal, and recruitment pattern was normal. All other muscles tested demonstrated normal insertional activity with absence of pathologic spontaneous activity. Motor unit potential recruitment pattern and amplitude was normal and all other muscles tested. Impression: Abnormal electrophysiologic study of the right upper extremity consistent with mild carpal tunnel syndrome of the right wrist.
== END | disposition home or self-care (01) ==
LOC: PSN 08:08
PROVIDERS: Family Provider Internal Medicine; PCP Internal Medicine; Referring Provider Physician Assistant; Visit Provider Physician Assistant
DX: G56.01 Carpal tunnel syndrome, right upper limb (principal); G56.21 Lesion of ulnar nerve, right upper limb
CPT/HCPCS: 95886; 95910

== ENCOUNTER → 2018-08-14 | Outpatient (CLI) | payer MEDICAID, SELFPAY ==
[2018-08-14 10:39] VITALS: BMI 27.4
--- NOTE | 2018-08-14 13:30 | VDUE_ITS ---
Reason For Study: Swelling Right Proximal Right jugular vein is spontaneous, widely patent, phasic, with no intraluminal echogenicity noted. Right subclavian vein is spontaneous, widely patent, phasic, with no intraluminal echogenicity noted. Right Lower Arm Right radial vein is compressible. Right ulnar vein is compressible. Right Arm Right axillary vein is spontaneous, patent, phasic, competent, compressible and demonstrates augmentation. Right brachial vein is compressible. Right cephalic vein is compressible. Right basilic vein is compressible. Interpretation Summary Deep veins of the right upper extremity are patent and compressible segmentally. There is no evidence of deep vein thrombosis. The superficial veins of the right upper extremity, the basilic and cephalic veins, are patent and compressible. There is no evidence of right upper extremity superficial thrombophlebitis involving the veins imaged. Ordering Physician: Nathalia Carson Referring Physician: Lili Goddard Performed By: Leighann Joshua RVT ?
== END | disposition home or self-care (01) ==
PROVIDERS: Family Provider Internal Medicine; PCP Internal Medicine; Referring Provider Orthopaedic Surgery; Visit Provider Orthopaedic Surgery
DX: R22.31 Localized swelling, mass and lump, right upper limb (principal)
CPT/HCPCS: 93971

== ENCOUNTER → 2018-08-16 | Outpatient (CLI) | payer MEDICAID, SELFPAY ==
[2018-08-14 10:39] VITALS: BMI 27.4
--- NOTE | 2018-08-16 15:31 | US_ITS ---
STUDY: SUPERFICIAL ULTRASOUND - RIGHT ARM REASON FOR EXAM: Female, 27 years old. Swelling TECHNIQUE: A superficial ultrasound was performed with real-time and static henley-scale imaging. COMPARISON: None. FINDINGS: No focal cystic or solid mass. No discrete fluid collections. US/Ext Non Vasc Limited/Soft Tiss IMPRESSION: No sonographic evidence for mass or fluid collection. MRI would be helpful for further assessment of soft tissues if clinically warranted Electronically Signed: Leif Locke MD at 21:35 EDT , Service support ,
== END | disposition home or self-care (01) ==
LOC: US 15:30
PROVIDERS: Family Provider Internal Medicine; PCP Internal Medicine; Referring Provider Orthopaedic Surgery; Visit Provider Orthopaedic Surgery
DX: R22.31 Localized swelling, mass and lump, right upper limb (principal)
CPT/HCPCS: 76882

== ENCOUNTER 2018-08-18 06:44 | Emergency (ER) | payer MEDICAID, SELFPAY ==
[2018-08-14 10:39] VITALS: BMI 27.4
[2018-08-18 06:46] VITALS: BP 118/72; PULSE 78; RESP 16; TEMP 36.7; O2SAT 98; BMI 31.8
--- NOTE | 2018-08-18 07:15 | ED.VIS.GEN ---
History of Present Illness Chief Complaint: Upper Extremity Injury Detail of Chief Complaint: Right upper extremity pain and tingling Informant: Patient Onset: Month(s) Context: Gradual Onset Timing: Continuous Quality: Pain and tingling and burning Location: Entire right upper extremity into the right scapular region Current Severity: Moderate Maximum Severity: Severe Worsened by: Use Relieved by: Nothing Associated Symptoms: Swelling of right upper extremity Narrative: Patient is a 27-year-old [id number] woman who has had numbness tingling involving her fingers and wrist for approximately 12 months. She is under the care of Dr. Gomez. She had a steroid injection several months ago. She had an EMG which revealed mild carpal tunnel syndrome. Because she has had swelling of the right upper extremity for the past several months and ultrasound of the extremity was performed to assess for DVT and mass. The ultrasound was negative. She presents today because she states that she is unable to tolerate the pain. She denies fever, chills or night sweats. She denies loss of function. She denies respiratory or cardiac symptoms. There is no history of autoimmune disorder in the family or patient. She denies any other symptoms. Prior similar symptoms: Yes Recent Illness/Hospitalization: No - Past Medical History (1) Carpal tunnel syndrome of right wrist Status: Acute (2) Depression Status: Chronic (3) PCOS (polycystic ovarian syndrome) Status: Chronic Past Medical History - Allergies and Home Meds Allergies/Adverse Reactions: Allergies acetaminophen [From [place]] Allergy (Verified 08/18/18 06:46) Hives hydrocodone [From [place]] Allergy (Verified 08/18/18 06:46) Hives naproxen Allergy (Verified 08/18/18 06:46) Rash Penicillins Allergy (Verified 08/18/18 06:46) Hives also has hematemesis Primary Care Physician: Lili Goddard MD [Primary Care Provider] - Prior records reviewed: Yes - Office visit to orthopedics and EMG report Surgical History: noncontributory, - Lives: With Family Smoking Status: Current every day smoker Drugs: None - Family History Maternal Family History: Family History (Last Reviewed 11/24/17 @ 14:43 by Syl Lincoln) Grandfather Diabetes Heart disease Family History: Reports: No pertinent history Paternal Family History: Family History (Last Reviewed 10/05/18 @ 14:43 by Syl Lincoln) Grandfather Diabetes Heart disease Family History: Reports: No pertinent history Review of Systems General: Denies: Chills, Fever, Malaise, Subjective, Sweats, Weight loss Eyes: Denies: Visual changes - bilaterally, Blurred Vision - bilaterally ENT: Denies: Rhinorrhea, Sore throat Cardiovascular: Denies: Chest pain, Palpitations, Heart racing Respiratory: Denies: Dyspnea, Dyspnea on exertion Gastrointestinal: Denies: Abdominal pain, Nausea, Vomiting, Diarrhea Genitourinary: Denies: Hematuria, Frequency Musculoskeletal: Reports: Swelling, Extremity Pain. Denies: Myalgias, Arthralgias, Neck pain, Back pain Skin: Denies: Rash, Wounds Neurological: Reports: Parasthesia, Numbness Psych: Reports: Depression Endocrine: Denies: Polyuria, Polydipsia Hematologic: Denies: Easy bruising, Easy bleeding Physical Exam Vital Signs/Narrative: Vital Signs Temp Pulse Resp BP Pulse Ox 08/18/18 06:46 98.1 F 78 16 118/72 98 Inital Vital Signs reviewed: Yes General: Well nourished, Well developed, No Acute Distress Head: Normocephalic, Atraumatic Eyes: Perrl, EOMI ENT: Moist mucous membranes, No rhinorrhea Neck: Supple, Nontender Cardiovascular: Regular rate, Regular rhythm, No murmurs Respiratory: No distress, CTA bilaterally, Chest nontender Back: Nontender, Normal Inspection Extremities: No edema, Tenderness, - - There is swelling of the right upper extremity compared to the left. There are no distended veins. Skin: Normal color, No rash, No Trauma. Negative for: Cyanosis, Diaphoresis, Jaundice Neurological: Alert, Oriented x3, Cranial nerves II-XII grossly intact, Normal Strength, Normal Sensation, Normal DTR - 1-2+ biceps, brachial radialis and tricep. Psychological: Normal affect, Normal Mood Diagnostic/Tx/Re-eval Laboratory Results 08/18/18 08/18/18 07:24 07:24 WBC 6.4 RBC 4.38 Hgb 12.0 Hct 37.1 MCV 84.7 MCH 27.4 MCHC 32.3 RDW 14.0 RDW Differential 43.3 Plt Count 283 MPV 8.9 Immature Gran % (Auto) 0.200 Neut % (Auto) 48.5 Lymph % (Auto) 38.2 [place] % (Auto) 11.4 H Eos % (Auto) 1.4 Baso % (Auto) 0.3 Absolute Neuts (auto) 3.1 Absolute Lymphs (auto) 2.45 Total Counted Not Reportable ESR 5 Sodium 141 Potassium 3.7 Chloride 107 Carbon Dioxide 28.0 Anion Gap 6 BUN 16 Creatinine 0.72 Estim Creat Clear Calc 99.56 Est GFR (MDRD) Af Amer 123 Est GFR (MDRD) Non-Af 101 BUN/Creatinine Ratio 22.3 H Glucose 86 Calcium 8.3 L Total Bilirubin 0.20 AST 27 ALT 33 Alkaline Phosphatase 62 C-React Prot Ext Range < 2.90 Total Protein 7.5 Albumin 3.8 Globulin 3.7 Albumin/Globulin Ratio 1.0 - Medical Decision Making Since patient has had recent EMG and ultrasound that confirms carpal tunnel syndrome and rules out mass and DVT need to consider autoimmune disorder, complex regional pain syndrome or exacerbation of carpal tunnel syndrome. Patient was reassessed at 0810. She was informed of her lab results. She was awakened from sleep. She did get improvement with medicines administered. Will discharge with prescription for [place] and recommended follow-up with her doctors. Since inflammatory markers were negative and there is objective swelling symptoms and swelling. ED Disposition - Plan for ED Patient: Disposition: Home or Assisted Living Diagnosis: Pain and swelling of right upper extremity Instructions: PAIN, Uncertain Cause (Acute) Prescriptions: traMADol [Ultram] 50 mg PO Q4H PRN PRN 3 Days #20 tablet PRN Reason: Pain Transmission Status: Sent to [facility] Referrals: Lili Goddard MD [Primary Care Provider] - Nathalia Carson DO [STAFF PHYSICIAN] - 5-7 Days Additional Instructions: Your prescription was electronically transmitted to [facility].
[2018-08-18] MEDS: Morphine 4 MG/ML Syringe IV (07:29)
[2018-08-18] MEDS: Ketorolac 15 MG/ML Vial IV (07:29)
[2018-08-18] MEDS: Ondansetron 4 MG/2 ML Vial IV (07:29)
[2018-08-18 07:30] LABS: Absolute Lymphocyte Count 2.45 X10^3/ul (0.83-4.51); Absolute Neutrophil Count 3.1 X10^3/uL (2.0-7.7); Basophil# 0.02 X10^3/uL; Basophil% 0.3 % (0-1); Eosinophil# 0.09 X10^3/uL; Eosinophils% 1.4 % (0-5); Hematocrit 37.1 % (37-47); Lymphocyte # 2.45 X10^3/ul (4.0); Lymphocyte % 38.2 % (19-41); Mean Corp Hgb Conc 32.3 g/gl (32-36); Mean Corpuscular Hgb 27.4 pg (27.0-32.0); Mean Corpuscular Volume 84.7 fL (81-99); Mean Platelet Vol. 8.9 fl (6.2-12.0); Monocyte# 0.73 X10^3/uL; Monocyte% 11.4 % (0-10); Neutrophil # 3.12 X10^3/uL (2.7-7.7); Neutrophil % 48.5 % (47-70); POSITIVE COUNT NO; POSITIVE DIFFERENTIAL NO; POSITIVE MORPHOLOGY NO; Platelet Count 283 K/mm3 (150-450); RBC Distribution Width SD 43.3 fl (35.1-43.9); Red Blood Count 4.38 M/mm3 (4.2-5.4); White Blood Count 6.4 K/mm3 (4.4-11.0)
[2018-08-18 07:41] LABS: Erythrocyte Sedimentation Rate 5 mm/hr (0-20)
[2018-08-18 07:51] LABS: AST(SGOT) 27 U/L (15-37); Alanine Aminotransfer ALT/SGPT 33 U/L (13-56); Albumin, Serum 3.8 g/dL (3.2-5.0); Alkaline Phosphatase 62 U/L (45-117); Anion Gap 6 (5-15); BUN 16 mg/dL (7-18); BUN/Creat Ratio 22.3 RATIO (10-20); CRP < 2.90 mg/L (0.0-3.0); Calcium,Total 8.3 mg/dL (8.5-10.1); Chloride 107 mmol/L (98-107); Creatinine, Serum 0.72 mg/dL (0.55-1.02); EST Glomerular Filtration Rate 101 mL/min (>60); Est Glom Filt Rate - Afr Amer 123 mL/min (>60); Estimated Creatinine Clearance 99.56 ml/min; Globulin 3.7 g/dL (2.2-4.2); Glucose 86 mg/dL (74-106); Potassium 3.7 mmol/L (3.5-5.1); Protein, Total 7.5 g/dL (6.4-8.2); Sodium Level 141 mmol/L (136-145)
[2018-08-18 08:30] VITALS: BP 124/68; PULSE 72; RESP 16; O2SAT 99
== END 2018-08-18 08:30 | disposition home or self-care (01) ==
PROVIDERS: Emergency Provider Emergency Medicine; Family Provider Internal Medicine; PCP Internal Medicine
DX: M79.89 Other specified soft tissue disorders (principal); M79.601 Pain in right arm; F17.200 Nicotine dependence, unspecified, uncomplicated
CPT/HCPCS: 80053; 85025; 85652; 86140; 96374; 96375; 99284; A4216; J2405

== ENCOUNTER → 2018-08-21 | Outpatient (CLI) | payer MEDICAID, SELFPAY ==
[2018-08-18 06:46] VITALS: BMI 31.8
--- NOTE | 2018-08-21 09:17 | RAD_ITS ---
STUDY: X-RAY CHEST REASON FOR EXAM: Female, 27 years old. Right arm swelling and pain. TECHNIQUE: Frontal and lateral views of the chest. COMPARISON: July 23, 2016 FINDINGS: The lungs are clear and expanded. There is no demonstrated pleural abnormality. Normal size heart. Normal mediastinum and cristina. Normal visualized pulmonary arteries. Normal visualized aortic arch and descending thoracic aorta. Normal visualized thoracic spine. Normal visualized ribs, clavicles, and shoulders. There is no demonstrated abnormality of the visualized soft tissue structures of the upper abdomen. RAD/Chest PA and Lateral IMPRESSION: No interval change and no acute finding. Electronically Signed: Xavier Dennis MD at 11:53 EDT , Service support ,
== END | disposition home or self-care (01) ==
LOC: RAD 09:17
PROVIDERS: Family Provider Internal Medicine; PCP Internal Medicine; Referring Provider Orthopaedic Surgery; Visit Provider Orthopaedic Surgery
DX: R22.31 Localized swelling, mass and lump, right upper limb (principal)
CPT/HCPCS: 71046

== ENCOUNTER → 2018-08-29 | Outpatient (CLI) | payer MEDICAID, SELFPAY ==
[2018-08-28 12:55] VITALS: BMI 31.8
--- NOTE | 2018-08-29 14:22 | RAD_ITS ---
STUDY: X-RAY - CERVICAL SPINE REASON FOR EXAM: Female, 27 years old. Pain and swelling of the right arm for 4 months. Cervical radiculopathy with tingling in the right fingers. No new injury. TECHNIQUE: view(s) of the cervical spine were obtained. COMPARISON: None FINDINGS: Normal anterior atlantoaxial articulation. Normal odontoid process. Normal cervical lordosis. Normal vertebral bodies and endplates. Normal disc space heights. Normal visualized intervertebral neuroforamina. There is no evidence of acute fracture or loss of vertebral axial height.. There is maintenance of normal alignment. The soft tissue structures are unremarkable. RAD/Cerv Spine 4 or 5 Views IMPRESSION: Normal x-ray examination of the visualized cervical spine. Electronically Signed: Boo Cabrera DO at 19:38 EDT Tel [phone], Service support ,
== END | disposition home or self-care (01) ==
LOC: RAD 14:15
PROVIDERS: Family Provider Internal Medicine; PCP Internal Medicine; Referring Provider Surgery; Visit Provider Surgery
DX: M54.12 Radiculopathy, cervical region (principal)
CPT/HCPCS: 72050

== ENCOUNTER 2018-09-21 12:30 | Emergency (ER) | payer MEDICAID, SELFPAY ==
[2018-08-28 12:55] VITALS: BMI 31.8
[2018-09-21 12:32] VITALS: BP 112/68; PULSE 82; RESP 16; TEMP 36.3; O2SAT 98; BMI 29.2
--- NOTE | 2018-09-21 12:56 | ED.VISSUMM ---
- ER Visit Summary Date of Service: 09/21/18 Chief Complaint: Right shoulder pain History of Present Illness: The patient is a 27 F past medical history of polycystic ovarian syndrome. Patient's had right upper extremity and shoulder pain for 4 months. She is been seen by her primary care physician and a local orthopedic physician. She is had multiple x-rays. Has been told according to her that she does have carpal tunnel but that would not explain all of her symptoms. She describes pain from her neck into her shoulder elbow and wrist and hand. It is a burning sensation. She states her hand is weak from this. She denies any trauma, fall or injury. No fever. She is never had any neck or shoulder surgery. Physical Examination: Young female no acute distress. Vital signs are stable and afebrile. HEENT exam unremarkable. Neck nontender. Trachea midline. Lungs clear to auscultation bilaterally. Heart regular rhythm no murmur. Abdomen soft nontender. Remedies moves all 4. Neurovascular intact. Right shoulder she has mild discomfort with palpation of the right shoulder. There is no redness, warmth or swelling. No axillary lymphadenopathy. She has full AB and adduction of her right shoulder. No signs of any type of rotator cuff tear. There is no joint effusion noted. She has full flexion-extension of her right elbow. Full range of motion to her right wrist. With a normal radial pulse. [employer] strength on the right is 4-5 word is 5 out of 5 on the left. He is right-hand dominant. There is no muscular atrophy of the right hand. Normal touch sensation and cap refill. Other extremities are unremarkable. Neurologically she is awake and alert. Test Results: None Emergency Department Course and Treatment: Patient is requesting an MRI explained to her this would be an outpatient evaluation for the MRI. Initially I will start with an MRI of her C-spine to rule out any type of disc pathology or nerve impingement. Treatment Plan: Motrin for pain and inflammation. Follow-up with primary care physician. Outpatient MRI. Disposition: Discharge Impression: Acute on chronic right upper extremity pain of uncertain etiology This note was generated with [employer] software. It may contain incorrect words, spelling, and punctuation that were not noted in review of the chart prior to signing ED Disposition - Plan for ED Patient: Referrals: Lili Goddard MD [Primary Care Provider] -
--- NOTE | 2018-09-21 13:00 | ED.DEP ---
ED Disposition - Plan for ED Patient: Disposition: Home or Assisted Living Referrals: Lili Goddard MD [Primary Care Provider] - As soon as possible Additional Instructions: Follow-up your primary care physician. I would start with an MRI of your cervical spine to rule out any disc pathology or nerve impingement. Motrin for pain and inflammation.
== END 2018-09-21 13:04 | disposition home or self-care (01) ==
PROVIDERS: Emergency Provider Emergency Medicine; Family Provider Internal Medicine; PCP Internal Medicine
DX: M79.601 Pain in right arm (principal); G89.29 Other chronic pain
CPT/HCPCS: 99282

== ENCOUNTER → 2018-10-05 | Outpatient (CLI) | payer MEDICAID, SELFPAY ==
[2018-09-21 12:32] VITALS: BMI 29.2
[2018-10-05 11:32] LABS: Erythrocyte Sedimentation Rate 8 mm/hr (0-20)
[2018-10-05 12:02] LABS: Vitamin B12 617 pg/mL (211-911)
[2018-10-05 12:12] LABS: CPK Total, Creatine Kinase 299 U/L (26-192); CRP < 2.90 mg/L (0.0-3.0); Rheumatoid Factor < 10.0 IU/mL (<15)
== END | disposition home or self-care (01) ==
PROVIDERS: Family Provider Internal Medicine; PCP Internal Medicine; Referring Provider Psychiatry & Neurology Neurology; Visit Provider Psychiatry & Neurology Neurology
DX: G72.9 Myopathy, unspecified (principal)
CPT/HCPCS: 36415; 82550; 82607; 84443; 85652; 86140; 86431

== ENCOUNTER 2018-11-17 17:07 | Emergency (ER) | payer MEDICAID, SELFPAY ==
[2018-11-01 15:32] VITALS: BMI 29.2
[2018-11-17 17:08] VITALS: BP 126/81; PULSE 87; RESP 14; TEMP 36.6; O2SAT 98; BMI 29.7
[2018-11-17 17:51] VITALS: BP 120/82; PULSE 98; RESP 16; O2SAT 100
--- NOTE | 2018-11-17 17:55 | CT_ITS ---
STUDY: CT ABDOMEN AND PELVIS WITH CONTRAST REASON FOR EXAM: Female, 28 years old. Umbilical hernia. Pain. RADIATION DOSAGE (If Supplied By Facility): CTDIvol = ( 17.15 ) mGy, DLP = ( 1050.81 ) mGycm TECHNIQUE: Transaxial images were obtained from the dome of the diaphragm to the symphysis pubis without oral contrast. Oral and amp; IV Gastrografin and amp; 100mL Isovue-300 100 was administered. Sagittal and coronal images were reconstructed. Individualized dose optimization techniques were used for this CT. COMPARISON: March 21, 2018 FINDINGS: The visualized lung bases are unremarkable. The visualized portions of the heart are within normal limits. Normal liver. There is non-visualization of the gallbladder, which may be secondary to either contraction or a prior cholecystectomy. Normal spleen. Normal pancreas. Normal bilateral adrenal glands. Normal right kidney. Normal left kidney. Normal visualized stomach. Normal small intestine. Normal colon. The appendix is visualized and appears normal. Normal abdominal aorta. Normal inferior vena cava. Normal retroperitoneum. Normal urinary bladder. There is a stable small umbilical hernia containing fat. There is mild stable stranding within the fat within the umbilical hernia. Normal osseous structures. CT/Abdomen/Pelvis WITH Contrast IMPRESSION: Stable fat-containing umbilical hernia. Electronically Signed: Sierra Goss MD at 20:20 EDT Tel , Service support ,
--- NOTE | 2018-11-17 17:57 | ED.DCSUM_ITS ---
History of Present Illness Chief Complaint: Abd Pain Informant: Patient - Abdominal Pain/Flank Pain Onset: Weeks - 2 Context: Gradual Onset Timing: Continuous Quality: Aching Location: - - umbilical Current Severity: Severe Maximum Severity: Severe Worsened by: - - vomiting Relieved by: Nothing - Nausea/Vomiting/Emesis GI Symptom: Nausea, Vomiting Onset: Weeks - 2 Quality: Nonbilious. Negative for: Blood streaks, Coffee ground, Hematemesis - Diarrhea/Melena/Hematochezia GI Symptom: - - having normal BM's. Negative for: Diarrhea, Melena, Hematochez ia Associated Symptoms: Negative for: Dysuria, Frequency, Hematuria, Urgency Narrative: Patient has had a periumbilical ventral hernia for at least 2 weeks, she has had pain in this area and vomiting since then, she feels it is worse every day especially tonight. She saw Dr. Pulido and is scheduled for a preoperative visit 3 days from now, and surgery the next, to repair this and was told that if she got worse that she would need to come to the ER for evaluation and since it is the weekend, she has done that now. Past Medical History - Allergies and Home Meds Allergies/Adverse Reactions: Allergies hydrocodone [From [place]] Allergy (Verified 11/17/18 17:12) Hives naproxen Allergy (Verified 11/17/18 17:12) Rash Penicillins Allergy (Verified 11/17/18 17:12) Hives also has hematemesis Primary Care Physician: Lili Goddard MD [Primary Care Provider] - Surgical History: cholecystectomy, - - w/ repeat surgery for resultant infection Smoking Status: Current every day smoker Drugs: None - Family History Maternal Family History: Family History (Last Reviewed 08/28/18 @ 13:08 by Salvatore Valle MD) Grandfather Diabetes Heart disease Family History: Reports: No pertinent history Paternal Family History: Family History (Last Reviewed 08/28/18 @ 13:08 by Salvatore Valle MD) Grandfather Diabetes Heart disease Family History: Reports: No pertinent history Review of Systems General: Reports: Malaise. Denies: Chills, Fever, Sweats Eyes: Denies: Visual changes - bilaterally, Diplopia ENT: Denies: Rhinorrhea, Sore throat Cardiovascular: Denies: Chest pain, Palpitations Respiratory: Denies: Dyspnea, Cough, Dyspnea on exertion Gastrointestinal: Reports: Abdominal pain, Nausea, Vomiting. Denies: Diarrhea, Melena, Hematochezia Genitourinary: Denies: Dysuria, Hematuria, Frequency Musculoskeletal: Denies: Back pain, Extremity Pain Skin: Denies: Rash, Wounds Neurological: Denies: Headache, Weakness, Numbness Physical Exam Vital Signs/Narrative: Vital Signs Temp Pulse Resp BP Pulse Ox 11/17/18 17:51 98 16 120/82 H 100 11/17/18 17:08 97.9 F 87 14 126/81 H 98 Inital Vital Signs reviewed: Yes General: Well nourished, Well developed, Obese, No Acute Distress Head: Normocephalic, Atraumatic Eyes: Perrl, EOMI ENT: Moist mucous membranes, No rhinorrhea Neck: Supple, Nontender Cardiovascular: Regular rate, Regular rhythm, No murmurs Respiratory: No distress, CTA bilaterally, Chest nontender Abdomen: Soft, Nondistended, Normal bowel sounds, Tender - periumbilical, Ventral hernia - at umbilicus and surrounding area (larger than umbilicus), when coughs only. when pt stands, easily palpable and reducible, very tender. Back: Nontender, Normal Inspection. Negative for: CVA tenderness Extremities: Nontender, No edema Skin: Normal color, No rash, No Trauma Neurological: Alert, Oriented x3, Cranial nerves II-XII grossly intact, Normal Strength, Normal Sensation, Normal Gait Psychological: Normal affect, Normal Mood Diagnostic/Tx/Re-eval Impressions Abdomen/Pelvis CT 11/17/18 17:55 IMPRESSION: Stable fat-containing umbilical hernia. Electronically Signed: Sierra Goss MD at 20:20 EDT Tel , Service support , 11/17/18 17:55 Abdomen/Pelvis WITH Contrast [CT] Stat Laboratory Results 11/17/18 11/17/18 11/17/18 18:25 18:25 18:25 WBC 8.8 RBC 4.46 Hgb 13.2 Hct 38.8 MCV 87.0 MCH 29.6 MCHC 34.0 RDW Std Deviation 43.7 RDW Coeff of [place] 13.9 Plt Count 327 MPV 9.3 Immature Gran % (Auto) 0.200 Neut % (Auto) 43.6 L Lymph % (Auto) 46.9 H [place] % (Auto) 6.9 Eos % (Auto) 1.9 Baso % (Auto) 0.5 Absolute Neuts (auto) 3.8 Absolute Lymphs (auto) 4.12 Nucleated RBC % 0 Sodium 140 Potassium 3.3 L Chloride 107 Carbon Dioxide 29.0 Anion Gap 4 L BUN 18 Creatinine 0.80 Estim Creat Clear Calc 96.26 Est GFR (MDRD) Af Amer 108 Est GFR (MDRD) Non-Af 90 BUN/Creatinine Ratio 22.5 H Glucose 79 Lactic Acid 0.9 Calcium 9.0 Total Bilirubin 0.20 AST 21 ALT 24 Alkaline Phosphatase 68 Total Protein 8.1 Albumin 3.9 Globulin 4.2 Albumin/Globulin Ratio 0.9 Urine Color Urine Clarity Urine pH Ur Specific [place] Urine Protein Urine Glucose (UA) Urine Ketones Urine Occult Blood Urine Nitrite Urine Bilirubin Urine Urobilinogen Ur Leukocyte Esterase Urine RBC Urine WBC Ur Squamous Epith Cells Amorphous Sediment Urine Bacteria Urine Mucus Urine Test 11/17/18 11/17/18 19:05 19:05 WBC RBC Hgb Hct MCV MCH MCHC RDW Std Deviation RDW Coeff of [place] Plt Count MPV Immature Gran % (Auto) Neut % (Auto) Lymph % (Auto) [place] % (Auto) Eos % (Auto) Baso % (Auto) Absolute Neuts (auto) Absolute Lymphs (auto) Nucleated RBC % Sodium Potassium Chloride Carbon Dioxide Anion Gap BUN Creatinine Estim Creat Clear Calc Est GFR (MDRD) Af Amer Est GFR (MDRD) Non-Af BUN/Creatinine Ratio Glucose Lactic Acid Calcium Total Bilirubin AST ALT Alkaline Phosphatase Total Protein Albumin Globulin Albumin/Globulin Ratio Urine Color Yellow Urine Clarity Cloudy Urine pH 7.0 Ur Specific [place] 1.010 Urine Protein Negative Urine Glucose (UA) Normal Urine Ketones Negative Urine Occult Blood Negative Urine Nitrite Negative Urine Bilirubin Negative Urine Urobilinogen Normal Ur Leukocyte Esterase Negative Urine RBC 0 SEEN Urine WBC 0 SEEN Ur Squamous Epith Cells 5-10 SEEN Amorphous Sediment 2+ Urine Bacteria 0 SEEN Urine Mucus 0 SEEN Urine Test Negative - Medical Decision Making negative, labs are normal including lactic acid, and oral/IV contrasted CT shows stable fat-containing umbilical hernia. There is mild stable stranding within the fat there, which may indicate the inflammatory reaction that is causing her pain. Clinically the ancillary testing is consistent with this, a reducible nonincarcerated hernia. She was treated with morphine, Toradol, Zofran and IV fluids and feels better, will give her a prescr iption for a few [place] to use at home as needed for pain, advised to follow-up as scheduled on Monday. ED Disposition - Plan for ED Patient: Disposition: Home or Assisted Living Diagnosis: Reducible umbilical hernia Instructions: HERNIA (Inguinal, Ventral, Umbilical) Prescriptions: Oxycodone HCl/Acetaminophen [Percocet 5/325] 1 tab PO Q6H PRN PRN 3 Days #12 tab PRN Reason: Pain Prescription Printed Ondansetron [Zofran] 8 mg PO Q8H PRN PRN #12 tab PRN Reason: Nausea Prescription Printed Referrals: Tanner Pulido MD [STAFF PHYSICIAN] - Keep [place] appointment
[2018-11-17] MEDS: 0.9% Normal Saline 1,000 ML 1000 ML IV (18:17)
[2018-11-17] MEDS: Morphine 4 MG/ML Syringe IV (18:18)
[2018-11-17] MEDS: Ondansetron 4 MG/2 ML Vial IV (18:19)
[2018-11-17 18:45] LABS: Absolute Lymphocyte Count 4.12 X10^3/uL (0.83-4.51); Absolute Neutrophil Count 3.8 X10^3/uL (2.0-7.7); Basophil# 0.04 X10^3/uL; Basophil% 0.5 % (0-1); Eosinophil# 0.17 X10^3/uL; Eosinophils% 1.9 % (0-5); Hematocrit 38.8 % (37-47); Hemoglobin 13.2 g/dL (12.0-15.0); Lymphocyte # 4.12 X10^3/ul (4.0); Lymphocyte % 46.9 % (19-41); Mean Corpuscular Hgb 29.6 pg (27.0-32.0); Mean Platelet Vol. 9.3 fl (6.2-12.0); Monocyte# 0.61 X10^3/uL; Monocyte% 6.9 % (0-10); NRBC Flagged by Analyzer 0 % (0-5); Neutrophil # 3.82 X10^3/uL (2.7-7.7); Neutrophil % 43.6 % (47-70); Platelet Count 327 K/mm3 (150-450); RBC Distribution Width CV 13.9 % (11.6-14.6); RBC Distribution Width SD 43.7 fl (35.1-43.9); Red Blood Count 4.46 M/mm3 (4.2-5.4); White Blood Count 8.8 K/mm3 (4.4-11.0)
[2018-11-17 18:51] LABS: ALB/GLOB Ratio 0.9 RATIO (0.9-2.4); AST(SGOT) 21 U/L (15-37); Alanine Aminotransfer ALT/SGPT 24 U/L (13-56); Albumin, Serum 3.9 g/dL (3.2-5.0); Alkaline Phosphatase 68 U/L (45-117); Anion Gap 4 (5-15); BUN 18 mg/dL (7-18); BUN/Creat Ratio 22.5 RATIO (10-20); Chloride 107 mmol/L (98-107); EST Glomerular Filtration Rate 90 mL/min (>60); Est Glom Filt Rate - Afr Amer 108 mL/min (>60); Estimated Creatinine Clearance 96.26 ml/min; Globulin 4.2 g/dL (2.2-4.2); Glucose 79 mg/dL (74-106); Potassium 3.3 mmol/L (3.5-5.1); Protein, Total 8.1 g/dL (6.4-8.2); Sodium Level 140 mmol/L (136-145)
[2018-11-17 19:07] VITALS: RESP 16
[2018-11-17 19:07] LABS: Lactic Acid 0.9 mmol/L (0.4-2.0)
[2018-11-17 19:08] LABS: Bacteria 0 SEEN /hpf (None Seen); Mucous, Urine 0 SEEN /hpf (<or=2+); Red Blood Cells-Urine 0 SEEN /hpf (0-5); White Blood Cells 0 SEEN /hpf (0-5)
[2018-11-17 19:14] LABS: Color, Urine Yellow (Yellow); Glucose, Dipstick Normal (Normal); Ketone-Dipstick Negative (Negative); Leukocyte Esterase-Dipstick Negative /ul (Negative); Nitrite-Dipstick Negative (Negative); Occult Blood-Urine Negative /ul (Negative); Protein-Dipstick Negative (Negative); Urine Bilirubin Dipstick Negative (Negative); Urine Clarity Cloudy (Clear); Urine Urobilinogen Normal (Normal)
[2018-11-17 19:17] LABS: Internal QC Validated? YES +Cl - CLEAR BKGD; Pregnancy, Urine Negative Negative
[2018-11-17 19:25] LABS: Squamous Epithelial Cells - UA 5-10 SEEN /hpf (5-10)
[2018-11-17 19:26] LABS: Amorphous Sediment 2+
== END 2018-11-17 21:04 | disposition home or self-care (01) ==
PROVIDERS: Emergency Provider Emergency Medicine; Family Provider Internal Medicine; PCP Internal Medicine
DX: K42.9 Umbilical hernia without obstruction or gangrene (principal); F17.200 Nicotine dependence, unspecified, uncomplicated
CPT/HCPCS: 74177; 80053; 81001; 81025; 83605; 85025; 96361; 96374; 96375; 99283; J7030; A4216; J2405

== ENCOUNTER 2018-11-21 11:25 | Day surgery (SDC) | payer MEDICAID, SELFPAY ==
[2018-11-01 15:32] VITALS: BMI 29.2
[2018-11-20 13:36] VITALS: BMI 29.7
--- NOTE | 2018-11-20 13:37 | PCM.HP.BLA ---
Problem List (1) Ventral incisional hernia Status: Acute History and Physical Date of Admission: 11/21/18 Intake Intake Visit Reasons: Umbilical Hernia Chief Complaint: abdominal pain= gallstones= choley 03/09 Allergies hydrocodone [From [place]] Allergy (Verified 11/17/18 17:12) Hives naproxen Allergy (Verified 11/17/18 17:12) Rash Penicillins Allergy (Verified 11/17/18 17:12) Hives [facility] Medical History (Updated 11/18/18 @ 00:00 by Tami Hung) Carpal tunnel syndrome of right wrist (Acute) PCOS (polycystic ovarian syndrome) (Chronic) Depression (Acute) Surgical History (Updated 07/03/18 @ 06:44 by Vinicio Leos MD) delivery delivered (Acute) removal of gallbladder (Acute) Family History (Updated 02/15/17 @ 13:51 by Nasrin Moore) Grandfather Diabetes Heart disease Social History (Updated 11/20/18 @ 13:36 by Tanner Pulido MD) Smoking Status: Current every day smoker alcohol intake: never substance use type: does not use caffeine: Yes what type of physical activity do you participate in: none seatbelt use: sometimes do you feel safe at home: Yes additional social history: Single HPI HPI HPI: CEASAR JAQUEZ, is a 28 F who presents to the office today for HPI HPI HPI: CEASAR JAQUEZ, is a 28 F who presents to the office today for hernia. Patient reports she is having a lot of abdominal pain in her mid abdomen. She notices that for the last 2 weeks is very very tender around her umbilicus. ROS General General: No weight change or fatigue Cardio Cardiovascular: No murmur, pacemaker, heart disease, atrial fibrillation, high blood pressure, heart attack, heart stent, palpitations, shortness of breat with exertion or chest pain Psych Psychiatric: No depression or anxiety Resp Respiratory: No shortness of breath, No sleep apnea, No cough, No COPD, No asthma, No emphysema, No wheezing Gastro Gastrointestinal: Yes abdominal pain, Yes nausea or vomiting, No diarrhea, No constipation, No blood in stool, No acid reflux, No hemorrhoids, No ulcers, No gallbladder problem, No black,tarry stools Jack Hematologic: No blood thinners Exam Const General: cooperative Orientation: alert, oriented x3 Resp Effort & Inspection: normal respiratory effort Auscultation: clear to auscultation bilaterally Cardio Rate: regular rate Rhythm: regular rhythm Heart Sounds: no murmurs GI Inspection: non-distended Palpation: soft, hernia (Reducible ventral incisional hernia at the umbilicus), nontender Assessment & Plan Problems 1. Ventral incisional hernia K43.2 Plan The patient is noticing very painful bulging at her umbilicus. She does have a history of an incision at this site for laparoscopic cholecystectomy. She was in the emergency room this weekend for pain. They did a CAT scan which showed a fat-containing ventral hernia. I discussed ventral hernia repair with mesh. This hernia is very small. I discussed mesh placement in the preperitoneal space. I discussed the risks of the surgery including but not limited to bleeding, infection, injury to underlying bowel, hernia recurrence. Patient understands the risks and is willing to proceed with surgery. Tanner Pulido MD Pager: [facility] [address] [place] [address], [address] [place] [address] Office:
[2018-11-21] VITALS (9 sets, daily range): BP systolic 108–123; BP diastolic 68–82; PULSE 60–89; RESP 16–18; TEMP 36.1–36.9; O2SAT 93–100; BMI 32.1
[2018-11-21] MEDS: Lactated Ringers 1,000 ML 100 ML IV ×2 (12:17→16:34)
[2018-11-21] MEDS: Bupivacaine 0.5% PF 10 ML VIAL (15:00)
--- NOTE | 2018-11-21 15:25 | PCM.DC.HER ---
Discharge Diet: Light diet - advance as tolerated Discharge Activity: Return to Normal Activity, May Not Drive - for 2-3 days or while taking narcotic pain meds., May Shower - with the bandage in place 1-2 days after surgery. Lifting Restrictions: 20 pounds for 6 weeks. Additional Activity Instructions:: Climbing stairs is fine, walking is encouraged. Sitting in bed may be uncomfortable. Sitting up using your lateral muscles (sitting up sideways) is usually more comfortable. Do not drive, work heavy equipment of sign legal documents for 24 hours. Pain medications may cause nausea, you should typically eat light foods as you take your pain medications. Pain medications may also cause constipation. If you have difficulty with this, discuss with your doctor. Call your doctor if your incision/area has: Continuous Slow Oozing, Sudden Increased Bleeding, Increased Pain/ Swelling, Increased Redness, Foul Smelling Discharge Call your doctor if you observe: Fever of 101 or Higher Suture Line Care: Avoid Pulling/Pushing, Avoid Pinching/Bending Change Dressing in (Days):: 3 - Leave steri-strips for 1 week. May protect with a guaze bandaid. Cleanse incision/area with: Keep Dressing Clean & Dry Allergies/Adverse Reactions: Allergies hydrocodone [From [place]] Allergy (Verified 11/21/18 11:51) Hives naproxen Allergy (Verified 11/21/18 11:51) Rash Penicillins Allergy (Verified 11/21/18 11:51) Hives also has hematemesis Medications to take at Discharge Ondansetron [Zofran] 8 mg PO Q8H PRN PRN #12 tab 11/17/18 Oxycodone HCl/Acetaminophen [Percocet 5/325] 1 tab PO Q6H PRN PRN 3 Days #12 tab 11/17/18 Oxycodone HCl/Acetaminophen [Percocet 5/325] 1 - 2 tablet PO Q4H PRN PRN 7 Days #40 tablet 11/21/18 The following prescriptions were given: Oxycodone HCl/Acetaminophen [Percocet 5/325] 1 - 2 tablet PO Q4H PRN PRN 7 Days #40 tablet PRN Reason: Pain Transmission Status: Sent to [facility] Primary Care Physician: Lili Goddard MD [Primary Care Provider] - Test Results: Test results from this visit will be discussed in further detail at your follow-up appointment, if applicable. Please Follow Up With: Tanner Pulido MD When: Please call to schedule 2 week follow up appointment. [phone]
--- NOTE | 2018-11-21 15:27 | PCM.OPRPT ---
Problem List (1) Ventral incisional hernia Status: Acute Report of Operation Date of Procedure: 11/21/18 Pre-Operative Diagnosis: Ventral hernia, incisional Post-Operative Diagnosis: Incisional ventral hernia Surgery/Procedure Performed:: Ventral incisional hernia repair with mesh Description of Surgical Findings:: Patient had a 1 cm umbilical hernia and a 1 cm ventral incisional hernia. Specimen's removed: None Description of Procedure: Patient was brought back to the operating room and general anesthesia was induced. The abdomen was prepped and draped in usual sterile fashion. An incision was marked below the umbilicus in a curvilinear fashion. This was injected with local anesthetic. An incision was then made with scalpel and then deepened to the hernia sac using electrocautery. The umbilical stalk was isolated and sharply removed from the hernia sac. The dissection was carried circumferentially until the umbilical hernia and incisional hernia were identified. These were reduced and connected to create one defect. Next the fascia was elevated and the preperitoneal space was dissected to create a preperitoneal pocket for the mesh. There is a small defect in the peritoneum which was closed with a running 3-0 Vicryl suture. Next the pocket was measured and a medium ventralex ST mesh was chosen. This was soaked and then placed into the pocket. It was sutured to the anterior fascia circumferentially with interrupted 0 PDS sutures. Next the fascia was reapproximated with interrupted 0 PDS sutures. The subcutaneous tissue was irrigated and suctioned dry. Local anesthetic was used to anesthetize the anterior fascia as well as the skin incision. The umbilical stalk was sutured to the anterior fascia using an interrupted 3-0 Vicryl suture. The incision was reapproximated using interrupted 3-0 Vicryl sutures as well as a running 4-0 Monocryl suture and Steri-Strips. A cottonball and OpSite dressing were placed over as a pressure dressing. Patient tolerated the procedure well was brought to PACU in stable condition. Grafts/Implants Used: Medium ventralex ST - Admit VTE Documentation VTE Mechan Device Prophylaxis: SCD's
[2018-11-21] MEDS: Acetaminophen 325 MG Tablet 650 MG PO (17:27)
[2018-11-21] MEDS: oxyCODONE 5 MG Tablet 10 MG PO (17:27)
== END 2018-11-21 18:22 | disposition home or self-care (01) ==
LOC: SDC 11:26 → AC 11:28
PROVIDERS: Family Provider Internal Medicine; PCP Internal Medicine; Referring Provider Surgery; Visit Provider Surgery
PROC: (CPT 49560; principal; 2018-11-21 13:35)
DX: K43.2 Incisional hernia without obstruction or gangrene (principal); F17.200 Nicotine dependence, unspecified, uncomplicated
CPT/HCPCS: 49560; 49568; C1781; J7120; J2405

== ENCOUNTER 2019-01-30 07:35 | Emergency (ER) | payer MEDICAID, SELFPAY ==
[2018-11-21 11:45] VITALS: BMI 32.1
[2019-01-30 07:37] VITALS: BP 129/78; PULSE 102; RESP 17; TEMP 36.7; O2SAT 97; BMI 33.0
--- NOTE | 2019-01-30 08:10 | ED.VISSUMM ---
- ER Visit Summary Date of Service: 01/30/19 Chief Complaint: Nausea, vomiting and diarrhea History of Present Illness: The patient is a 28 F no seen past medical history. Prior cholecystectomy and tubal ligation. Patient states since yesterday she has had nausea and vomiting multiple times and diarrhea x1. No hematemesis. No fever. No dysuria. No significant abdominal pain. Physical Examination: Young female no acute distress. Vital signs are stable and afebrile. She does not look septic or toxic. HEENT exam mild dry mucous membranes. Neck nontender no lymphadenopathy. Lungs clear to auscultation bilaterally. Abdomen is soft nontender normal bowel sounds no peritoneal signs. No signs of obstruction. Patient moving all 4 extremities. No edema. Back nontender. Neurologically she is awake and alert with no focal motor deficits. Test Results: None Emergency Department Course and Treatment: Patient history exam is consistent with a viral gastroenteritis. Should be treated with a liter normal saline. IV Zofran. Given a p.o. fluid challenge when she is feeling better she will be discharged to home. Treatment Plan: Plenty of fluids and rest. Zofran for nausea as needed. Follow-up as needed or return if worse. Disposition: Discharge Impression: Viral gastroenteritis Mild dehydration This note was generated with [employer] dictation software. It may contain incorrect words, spelling, and punctuation that were not noted in review of the chart prior to signing ED Disposition - Plan for ED Patient: Referrals: Lili Goddard MD [Primary Care Provider] -
[2019-01-30] MEDS: Ondansetron 4 MG/2 ML Vial IV (08:17)
[2019-01-30] MEDS: 0.9% Normal Saline 1,000 ML 1000 ML IV (08:17)
--- NOTE | 2019-01-30 08:20 | ED.DEP ---
ED Disposition - Plan for ED Patient: Disposition: Home or Assisted Living Instructions: GASTROENTERITIS, Viral (4y-Adult) Prescriptions: Ondansetron [Zofran Odt] 4 mg PO Q8H PRN PRN #7 tab PRN Reason: Nausea Prescription Printed Referrals: Lili Goddard MD [Primary Care Provider] - As Needed Additional Instructions: Plenty of fluids and rest. Increase diet as tolerated. Zofran as needed for nausea. Follow-up with your doctor if not improving or return to the ER if worse.
== END 2019-01-30 09:56 | disposition home or self-care (01) ==
PROVIDERS: Emergency Provider Emergency Medicine; Family Provider Internal Medicine; PCP Internal Medicine
DX: A08.4 Viral intestinal infection, unspecified (principal); E86.0 Dehydration; F17.290 Nicotine dependence, other tobacco product, uncomplicated
CPT/HCPCS: 96361; 96374; 99283; J7030; J2405

== ENCOUNTER → 2019-02-08 14:21 | Outpatient (CLI) | payer MEDICAID, SELFPAY ==
[2019-01-30 07:37] VITALS: BMI 33.0
[2019-02-08 15:51] LABS: hCG Titer Quant., Serum < 1 mIU/mL (1-3)
[2019-02-08 15:55] LABS: Estradiol 47.4 pg/mL; Follicle Stimulating Hormone 5.5 mIU/mL; T4 Free Direct 0.91 ng/dL (0.76-1.46); Thyroid Stim Hormone (TSH) 0.88 uIU/mL (0.358-3.74)
[2019-02-11 12:10] LABS: Testosterone Free 1.9 pg/mL (0.0-4.2)
== END ==
PROVIDERS: Family Provider Internal Medicine; PCP Internal Medicine; Referring Provider Obstetrics & Gynecology; Visit Provider Obstetrics & Gynecology
DX: N91.2 Amenorrhea, unspecified (principal)
CPT/HCPCS: 36415; 82627; 82670; 83001; 84402; 84439; 84443; 84702; 82626

== ENCOUNTER 2019-03-07 09:20 | Emergency (ER) | payer OTHER, MEDICAID, SELFPAY ==
[2019-03-07 09:22] VITALS: BP 159/97; PULSE 88; RESP 18; TEMP 37.1; O2SAT 99; BMI 32.4
--- NOTE | 2019-03-07 09:40 | ED.VIS.EYE ---
History of Present Illness Chief Complaint: Eye Problem Detail of Chief Complaint: Blurred vision after blunt trauma Informant: Patient Location: Right Eye Onset: Today Context: Sudden Onset Timing: Continuous Current Severity: Mild Maximum Severity: Mild Associated Symptoms - Eyes: - - Blurred vision Visual Changes: right: Blurred vision History of injury: Yes, - - And cut a wire on a spool. The wire came back at her and went under her glasses. She states the injury occurred on the lateral side of the right eye. Visual correction: Glasses Narrative: Patient is a 28-year-old female who presents with blunt trauma to her right eye with blurred vision. This occurred prior to arrival. This occurred at work. Patient does wear glasses. She states she was wearing glasses. There is no history of glaucoma. She has no other complaints. Prior similar symptoms: No Recent Illness/Hospitalization: No - Past Medical History (1) Depression Status: Chronic (2) PCOS (polycystic ovarian syndrome) Status: Chronic Past Medical History - Allergies and Home Meds Allergies/Adverse Reactions: Allergies hydrocodone [From [place]] Allergy (Verified 03/07/19 09:22) Hives naproxen Allergy (Verified 03/07/19 09:22) Rash Penicillins Allergy (Verified 03/07/19 09:22) Hives also has hematemesis Primary Care Physician: Lili Goddard MD [Primary Care Provider] - Prior records reviewed: Yes - Carpal tunnel surgery Surgical History: cholecystectomy, - - w/ repeat surgery for resultant infection Smoking Status: Current every day smoker Alcohol: Rare Drugs: None - Family History Maternal Family History: Family History (Last Reviewed 08/28/18 @ 13:08 by Salvatore Valle MD) Grandfather Diabetes Heart disease Family History: Reports: No pertinent history Paternal Family History: Family History (Last Reviewed 08/28/18 @ 13:08 by Salvatore Valle MD) Grandfather Diabetes Heart disease Family History: Reports: No pertinent history Review of Systems Eyes: Reports: Blurred vision - right. Denies: Visual changes - bilaterally, Diplopia ENT: Denies: Rhinorrhea, Sore throat Gastrointestinal: Denies: Nausea, Vomiting Skin: Denies: Rash Hematologic: Denies: Easy bruising, Easy bleeding Physical Exam 1 - She has 2 linear abrasions consistent with history. Visual Acuity: right: 20/40, left: 20/20 - 2024 Visual Acuity: Corrected Eyelid: Normal inspection, Right eyelid everted, Left eyelid everted, No foreign body, - Right Conjunctiva/Sclera: Normal inspection, No foreign body, No erythema Left Conjunctiva/Sclera: Normal inspection, No foreign body, No erythema Right Cornea: Normal inspection, No foreign body, - - Jean Pierre sign is negative even with gentle pressure to the orbit. Left Cornea: Normal inspection, No foreign body, No abrasion, No dye uptake Extraocular Motion: Normal exam, No pain, No palsy, No nystagmus Right pupil size in mm: 3 mm Left pupil size in mm: 3 mm Anterior chamber: Normal exam, Deep and quiet Posterior Segment: Normal fundoscopic exam, - - To disc ratio is normal. There is no papilledema. There is no evidence of hemorrhage. Vital Signs/Narrative: Vital Signs Temp Pulse Resp BP Pulse Ox 03/07/19 09:22 98.7 F 88 18 159/97 H 99 Inital Vital Signs reviewed: Yes General: Well nourished, Well developed, Obese Head: Normocephalic, Atraumatic ENT: Moist mucous membranes, No rhinorrhea, TM's clear Neck: Supple, Nontender, No lymphadenopathy, No JVD Cardiovascular: Regular rate, Regular rhythm, No murmurs Respiratory: No distress Skin: Normal color, No rash, No Trauma Neurological: Alert, Oriented x3, Cranial nerves II-XII grossly intact, Normal Strength, Normal Sensation, Normal Gait Psychological: Normal affect Diagnostic/Tx/Re-eval - Medical Decision Making There is slight difference in visual acuity. Suspect patient may have a corneal abrasion. Will perform slit-lamp examination using fluorescein to assess for corneal abrasion, laceration. Since patient does not have photophobia to direct or indirect light doubt iritis or hyphema. Exam reveals 2 linear corneal abrasions. This would explain patient's photophobia during slit-lamp examination and since its over the central visual axis her complaint of blurred vision. There is no hyphema, flare or cells noted. ED Disposition - Plan for ED Patient: Disposition: Home or Assisted Living Diagnosis: Right corneal abrasion Instructions: ED Corneal Abrasion Prescriptions: Ciprofloxacin 0.3% [Ciloxan] 1 drp RIGHT EYE Q4 #1 bottle Transmission Status: Pending to [facility] Referrals: Lili Goddard MD [Primary Care Provider[facility] [GROUP OF PHYSICI[facility]] - 2 Days
[2019-03-07] MEDS: Fluorescein 1 MG STRIP 1 STRIP RIGHT EYE (10:13)
[2019-03-07 10:15] VITALS: BP 119/74; PULSE 88; RESP 18
== END 2019-03-07 10:20 | disposition home or self-care (01) ==
PROVIDERS: Emergency Provider Emergency Medicine; PCP Internal Medicine
DX: S05.01XA Injury of conjunctiva and corneal abrasion without foreign body, right eye, initial encounter (principal); F17.200 Nicotine dependence, unspecified, uncomplicated; E66.9 Obesity, unspecified; W20.8XXA Other cause of strike by thrown, projected or falling object, initial encounter; Y93.89 Activity, other specified; Y92.008 Other place in unspecified non-institutional (private) residence as the place of occurrence of the external cause; Y99.8 Other external cause status
CPT/HCPCS: 99283

== ENCOUNTER 2019-07-25 12:46 | Emergency (ER) | payer MEDICAID, SELFPAY ==
[2019-03-07 10:24] VITALS: BMI 32.4
[2019-07-25 12:47] VITALS: BP 133/86; PULSE 103; PULSE 113; RESP 16; TEMP 36.3; O2SAT 97; O2SAT 98; BMI 29.3
--- NOTE | 2019-07-25 13:05 | ED.VIS.GEN ---
History of Present Illness Chief Complaint: Nausea/Vomiting Informant: Patient Onset: Today Context: Gradual Onset Timing: Continuous Narrative: Patient is a 28-year-old female with history of PCOS presenting with concerns for dehydration. Patient states she was out in the sun a lot yesterday. She does not need she is been drinking of water. She was at work today where it is hot and she started feel little lightheaded. She had to leave work. Patient think she needs IV fluids. She has a nausea but actually denies any vomiting. She has no associated abdominal pain. She denies any urinary symptoms. She denies any other complaints at this time including chest pain, shortness of breath, fever or chills. Last menstrual period was 1 month ago. She states she is not concerned for as she is had a tubal ligation. She denies any other complaints at this time. Past Medical History - Allergies and Home Meds Allergies/Adverse Reactions: Allergies hydrocodone [From [place]] Allergy (Verified 07/25/19 12:46) Hives naproxen Allergy (Verified 07/25/19 12:46) Rash Penicillins Allergy (Verified 07/25/19 12:46) Hives also has hematemesis Primary Care Physician: Lili Goddard MD [Primary Care Provider] - Past Medical History: - - PCOS Surgical History: cholecystectomy, - - w/ repeat surgery for resultant infection Lives: With Family Smoking Status: Current every day smoker - Family History Maternal Family History: Family History (Last Reviewed 08/28/18 @ 13:[address] Salvatore Valle MD) Grandfather Diabetes Heart disease Family History: Reports: No pertinent history Paternal Family History: Family History (Last Reviewed 08/28/18 @ 13:[address] Salvatore Valle MD) Grandfather Diabetes Heart disease Family History: Reports: No pertinent history Review of Systems General: Reports: - - Lightheaded. Denies: Chills, Fever, Sweats Eyes: Denies: Visual changes - bilaterally, Diplopia ENT: Denies: Rhinorrhea, Sore throat Cardiovascular: Denies: Chest pain, Palpitations Respiratory: Denies: Dyspnea, Cough, Dyspnea on exertion Gastrointestinal: Reports: Nausea. Denies: Abdominal pain, Vomiting, Diarrhea, Melena, Hematochezia Genitourinary: Denies: Dysuria, Hematuria, Frequency Musculoskeletal: Denies: Back pain, Extremity Pain Skin: Denies: Rash, Wounds Neurological: Denies: Headache, Weakness, Numbness Physical Exam Vital Signs/Narrative: Vital Signs Temp Pulse Resp BP Pulse Ox 07/25/19 12:47 97.3 F L 103 H 16 133/86 H 98 Inital Vital Signs reviewed: Yes General: Well nourished, Well developed, No Acute Distress Head: Normocephalic, Atraumatic Eyes: Perrl, EOMI ENT: Moist mucous membranes, No rhinorrhea, TM's clear Neck: Supple, Nontender, No JVD Cardiovascular: Regular rhythm, No murmurs, Tachycardia Respiratory: No distress, CTA bilaterally, Chest nontender Abdomen: Soft, Nontender, Nondistended, Normal bowel sounds. Negative for: Guarding, Rebound tenderness Back: Nontender, Normal Inspection Extremities: Nontender, No edema Skin: Normal color, No rash Neurological: Alert, Oriented x3, Cranial nerves II-XII grossly intact, Normal Strength, Normal Sensation Psychological: Normal affect, Normal Mood Diagnostic/Tx/Re-eval Laboratory Data 07/25/19 07/25/19 13:15 13:15 WBC 7.7 RBC 4.15 L Hgb 13.2 Hct 37.6 MCV 90.6 MCH 31.8 MCHC 35.1 RDW Std Deviation 40.5 RDW Coeff of Yocasta 12.4 Plt Count 333 MPV 9.5 Immature Gran % (Auto) 0.300 Neut % (Auto) 46.9 L Lymph % (Auto) 40.9 Hendricks % (Auto) 10.7 H Eos % (Auto) 0.9 Baso % (Auto) 0.3 Absolute Neuts (auto) 3.6 Absolute Lymphs (auto) 3.14 Nucleated RBC % 0 Sodium 139 Potassium 2.8 L Chloride 103 Carbon Dioxide 28.0 Anion Gap 8 BUN 19 H Creatinine 1.01 Estim Creat Clear Calc 70.33 Est GFR (MDRD) Af Amer 82 Est GFR (MDRD) Non-Af 68 BUN/Creatinine Ratio 18.8 Glucose 105 Calcium 8.8 Total Bilirubin 0.70 AST 36 ALT 49 Alkaline Phosphatase 51 Total Protein 7.6 Albumin 4.1 Globulin 3.5 Albumin/Globulin Ratio 1.2 Lipase 200 - Medical Decision Making Is evaluated for the nausea and concern for dehydration. She was in the sun yesterday. She is mildly tachycardic but otherwise asymptomatic. She has moist mucosal membranes. She is well-appearing. She is given IV fluids as well as IV Zofran. Baseline labs were checked including CBC, CMP and lipase. As patient is not having any abdominal pain, urinary symptoms and is not concerned for with a tubal ligation I did not check a urine her urine . I do not think imaging is indicated. Plan is hydration and discharge home with Zofran for symptomatic treatment. Patient's lab work shows hypokalemia of 2.8. Patient is given p.o. and oral potassium replacement emergency room. She is counseled on a high potassium diet over the next few days. She is instructed to follow-up with her primary care doctor next week for repeat potassium level checked. Patient is not on any medications that should be causing hypokalemia. Patient is counseled on signs and symptoms requiring return to the emergency room. Patient verbalizes agreement and understand this plan. Patient discharged home in stable and improved condition. ED Disposition - Plan for ED Patient: Diagnosis: Nausea, Tachycardia, Hypokalemia Instructions: ED Dehydration Adult, ED Potassium Deficiency Prescriptions: Ondansetron [Zofran Odt] 4 mg PO Q8H PRN PRN #9 tab PRN Reason: Nausea Prescription Printed Referrals: Lili Goddard MD [Primary Care Provider] - Additional Instructions: Try to eat foods rich in potassium such as bananas and sweet potatoes over the next few days. Drink fluids at have electrolytes in them. Follow-up with your primary care doctor next week for recheck of your potassium level. Return if you have worsening symptoms.
[2019-07-25] MEDS: Ondansetron 4 MG/2 ML Vial IV (13:14)
[2019-07-25] MEDS: 0.9% Normal Saline 1,000 ML 1000 ML IV (13:14)
[2019-07-25 13:24] LABS: Absolute Lymphocyte Count 3.14 X10^3/uL (0.83-4.51); Absolute Neutrophil Count 3.6 X10^3/uL (2.0-7.7); Basophil# 0.02 X10^3/uL; Basophil% 0.3 % (0-1); Eosinophil# 0.07 X10^3/uL; Eosinophils% 0.9 % (0-5); Hematocrit 37.6 % (37-47); Hemoglobin 13.2 g/dL (12.0-15.0); Lymphocyte # 3.14 X10^3/ul (4.0); Lymphocyte % 40.9 % (19-41); Mean Corp Hgb Conc 35.1 g/dL (32-36); Mean Corpuscular Hgb 31.8 pg (27.0-32.0); Mean Corpuscular Volume 90.6 fL (81-99); Mean Platelet Vol. 9.5 fl (6.2-12.0); Monocyte# 0.82 X10^3/uL; Monocyte% 10.7 % (0-10); NRBC Flagged by Analyzer 0 % (0-5); Neutrophil % 46.9 % (47-70); Platelet Count 333 K/mm3 (150-450); RBC Distribution Width CV 12.4 % (11.6-14.6); RBC Distribution Width SD 40.5 fl (35.1-43.9); Red Blood Count 4.15 M/mm3 (4.2-5.4); White Blood Count 7.7 K/mm3 (4.4-11.0)
[2019-07-25 13:40] LABS: ALB/GLOB Ratio 1.2 RATIO (0.9-2.4); AST(SGOT) 36 U/L (15-37); Alanine Aminotransfer ALT/SGPT 49 U/L (13-56); Albumin, Serum 4.1 g/dL (3.2-5.0); Alkaline Phosphatase 51 U/L (45-117); Anion Gap 8 (5-15); BUN 19 mg/dL (7-18); BUN/Creat Ratio 18.8 RATIO (10-20); Calcium,Total 8.8 mg/dL (8.5-10.1); Chloride 103 mmol/L (98-107); Creatinine, Serum 1.01 mg/dL (0.55-1.02); EST Glomerular Filtration Rate 68 mL/min (>60); Est Glom Filt Rate - Afr Amer 82 mL/min (>60); Estimated Creatinine Clearance 70.33 ml/min; Globulin 3.5 g/dL (2.2-4.2); Glucose 105 mg/dL (74-106); Lipase 200 U/L (73-393); Potassium 2.8 mmol/L (3.5-5.1); Protein, Total 7.6 g/dL (6.4-8.2); Sodium Level 139 mmol/L (136-145)
[2019-07-25] MEDS: Potassium Chloride 10mEq/100mL 10 MEQ/100 ML IV.SOLN. 100 MEQ IV BOLUS ×2 (14:07→15:30)
[2019-07-25 15:30] VITALS: BP 128/78; PULSE 71; RESP 16; O2SAT 98
[2019-07-25 16:32] VITALS: BP 121/78; PULSE 74; RESP 16; O2SAT 98
--- OUTSIDE RECORDS SUMMARY | 2019-12-08 07:52 | XMS RPT_ITS | CCD ---
:1990 External Reference #:[id number] Author Organization [facility] Care Team Providers Name Role Phone Signs Alyce BOLAND Unavailable Salazar SALESPERSON BOOKS, L Unavailable Unavailable Signs Maylin BOLAND Unavailable Dana Johnson MD Unavailable EHRENBERG BUCHFAVIOLA Unavailable Unavailable MARCANTHONY, E Unavailable Unavailable GANTA, C Unavailable Unavailable CORTES Unavailable Unavailable MARCANTHONY, E Unavailable Unavailable GANTA, C Unavailable Unavailable EHRENBERG BUCHNER Unavailable Unavailable MARCANTHONY, E Unavailable Unavailable GANTA, C Unavailable Unavailable MARCANTHONY, E Unavailable Unavailable GANTA, C Unavailable Unavailable EHRENBERG BUCHNER Unavailable Unavailable Salazar SALESPERSON BOOKS, L Unavailable Unavailable Salazar SALESPERSON BOOKS, L Unavailable Unavailable Salazar SALESPERSON BOOKS, L Unavailable Unavailable Salazar SALESPERSON BOOKS, L Unavailable Unavailable Ganta Primary Care Provider Allergies Reported Allergen Reaction(s) Severity Date of Onset Location naproxen Critical, Critical 08-08-2016 - [facility] ([id number]) naproxen Rash Critical, Critical 03-24-2015 - [place] [facility] (14630) penicillin g Critical, Critical 08-08-2016 - [place] [facility]fectious Disease (69535) penicillin g Critical, Critical 08-08-2016 - [facility] (66574) Penicillins Hives 08-29-2014 - [facility] Transl[facility]: [ Hospital Rep ository PENICILLINS] Medications Medication Name Sig Date Prescriber Location Acetaminophen / oxyCODONE PERCOCET 5-325 MG TABS [place] [facility] q 4 hrs prn Disease (80140) OXYCODONE-ACETAMINOPHEN [id number] Kandy Lincoln SALESPERSON BOOKS PERCOCET 5-325 MG TABS q 4 hrs prn [place] [facility] (95393) OXYCODONE-ACETAMINOPHEN [id number] Kandy Lincoln LPN PERCOCET 5-325 MG TABS q 4 hrs prn [place] [facility] (79205) OXYCODONE-ACETAMINOPHEN [id number] Kandy Lincoln LPN PERCOCET 5-325 MG TABS q 4 hrs prn [place] [facility] (14838) OXYCODONE-ACETAMINOPHEN [id number] Kandy Lincoln LPN PERCOCET 5-325 MG TABS q 4 hrs prn [place] [facility] (36312) OXYCODONE-ACETAMINOPHEN [id number] Kandy Lincoln LPN Amitriptyline amitriptyline (ELAVIL) 05-28-2018 - Beto ([facility]) [facility] 10 mg tablet Take 1 10-09-2019 Gaurang Lee (80773) tablet by mouth daily ([facility]) Gaurang at bedtime. 30 tablet 1 05/28/2018 10/09/2019 Discontinued (Course of therapy completed) Comment: Take 1 tablet by mouth daily at bedtime. Cephalexin KEFLEX 500 MG CAPS q 6 hrs 08-08-2016 [place] [facility] [facility] CEPHALEXIN [id number] Kandy Rosa (56492) Salazar VALENZUELA KEFLEX 500 MG CAPS q 6 hrs CEPHALEXIN 08-08-2016 [place] [facility] (25778) [id number] Kandy Lincoln LPN cyclobenzaprine cyclobenzaprine 06-11-2018 - Beto ([facility]) [facility] (FLEXERIL) 10 mg tablet 10-09-2019 Gaurang Lee (441 95) Indications: Right ([facility]) Gaurang wrist pain Take 1 tablet by mouth twice daily as needed for Muscle Spasm. 20 tablet 0 06/11/2018 10/09/2019 Discontinued (Course of therapy completed) Comment: Take 1 tablet by mouth twice daily as needed for Muscle Spasm. ertapenem INVANZ 1 GM SOLR q 24 hrs ERTAPENEM [place] [facility] (87153) SODIUM [id number] Kandy Lincoln LPN INVANZ 1 GM SOLR q 24 hrs ERTAPENEM SODIUM [place] [facility] (58779) [id number] Kandy Lincoln LPN INVANZ 1 GM SOLR q 24 hrs ERTAPENEM SODIUM [place] [facility] (99454) [id number] Kandy Lincoln LPN INVANZ 1 GM SOLR q 24 hrs ERTAPENEM SODIUM [place] [facility] (79819) [id number] Kandy Lincoln LPN INVANZ 1 GM SOLR q 24 hrs ERTAPENEM SODIUM [place] [facility] (95180) [id number] Kandy Lincoln LPN ferrous gluconate FERROUS GLUCONATE 325 [place] [facility] [facility] (36 Fe) MG ORAL TABLET Disea se (62222) bid FERROUS GLUCONATE [id number] Kandy Lincoln LPN Folic Acid FOLIC ACID 1 MG TABS q [place] [facility] FOLIC ACID Disease (41540) 38115951843 Kandy Lincoln SALESPERSON BOOKS Ibuprofen IBUPROFEN 800 MG TABS [place] [facility] q 8 hrs prn IBUPROFEN Diseas e (53605) [id number] Kandy Lincoln LPN meloxicam meloxicam (MOBIC) 15 09-21-2018 Raegan (Hist) [facility] mg tablet Indications: - Rutti Raegan (441 95) Right arm pain Take 1 10-09-2019 (Hist) Rutti tablet by mouth once daily. Take with food. 30 tablet 2 09/21/2018 10/09/2019 Discontinued (Course of therapy completed) Comment: Take 1 tablet by mouth once daily. Take with food. No information available. No information available. [place] [facility] (44499) No information available. [place] [facility] (78806) No information available. [place] [facility] (58525) No information available. [place] [facility] (47441) No information available. [place] [facility] (92256) predniSONE predniSONE (DELTASONE) 10-09-2019 - Aditi ([facility] [place]) [facility] 10 mg tablet 10-21-2019 Older (00922) Indications: Chronic pain in right shoulder Take 4 tabs daily x 3 days, then 3 tabs x 3 days, 2 tabs x 3 days, then 1 tab x3 days with food. 30 tablet 0 10/09/2019 10/21/2019 Active Comment: Take 4 tabs daily x 3 days, then 3 tabs x 3 days, 2 tabs x 3 days, then 1 tab x3 days with food. Problems Active Problems Category Problem Name Status Date Location Other screening for No current problems Active [place] [facility] suspected conditions (not or disability D isease (68607) mental disorders or infectious disease) Spondylosis; Neck pain Active [facility] intervertebral disc (43013) disorders; other back problems Unclassified Drug therapy finding Active 08-08-2016 - [place] [facility] (31276) Unclassified Chronic pain of Active [facility] [facility] right upper limb (02985) Past or Other Problems Category Problem Name Status Date Location Bacterial infection; Infection due to Completed 08-08-2016 - [facility] unspecified site anaerobic bacteria Disea se (59094) Open wounds of head; Unspecified open Completed 08-08-2016 - [facility] neck; and trunk wound of abdominal Diseas e (51392) wall, unspecified quadrant without penetration into peritoneal cavity, sequela Other complications of Infection of Completed 08-08-2016 - [place] [facility] ; puerperium section Diseas e (72811) affecting management of AND/OR perineal mother wound NEGATED: Highlighted No known active [facility] row has been ruled problems (94708) out!Unclassified Results Result Name Value Range Unit Interpretation Flag Date Location [facility] on 2019-10-29 [facility] Telephone (INTMWS) Normal 10-29-2019 [facility] [place] [facility] ROWENA JAQUEZ ([id number]) 1990 [facility] Time Provider Department ([id number]) 10/29/19 GONZALES STOLL INTMWS During your visit today, we recorded the following informati on about you: Linda Burkett LPN 10/29/2019 5:06 PM Signed Pt called back at 5 pm. she wants to be tested f or COVID and does not want an apt. She called [facility] and it was going to co st her $55.00 and she can't afford this. I offered her a virtual a pt her tomorrow and declined. She said if she misses 1 more day of work she will loose her job. I then instructed her to go to ER. Linda Ballard, MINE SUPERVISOR.MARILYNN 10/30/2019 5:26 PM Signed She also has the option of getting tested at [facility] in [place], testing is free Aditi Ballard APRN.MARILYNN Martínez Cma 10/31/2019 10:17 AM Signed TC to patient. No answer. Unable to LM on VM. VM not set up. My Chart message sent. Pee Martínez Cma Allergies As of Date: 10/29/2019 Noted Allergy Reaction NAPROXEN 03/24/2015 2 - Rash PENICILLINS 08/29/2014 4 - Hives Date Reviewed: 10/09/2019 Reviewed by: Steffen Bishop Cma - Fully Assessed Reason for Visit: covid question [Other] More... Problem List As Of Date 10/29/2019 Noted Resolved Rh negative state in antepartum period [O26.899*09/16/2014 0 08/25/2016 More... 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 with care elsewhere, antepar*03/10/2016 0 08/25/2016 More... History of seizure [Z87.898] 03/10/2016 08/25/2016 More... History of depression [Z87.59, Z86.5*03/10/2016 0 08/25/2016 More... History of delivery [Z98.891] 03/10/2016 08/25/2016 More... PUPP (pruritic urticarial papules and plaques o*05/24/2016 0 08/25/2016 Encounter Status:Closed by PEE MARTÍNEZ CMA on 10/31/19 DAVID Telephone (INTMWS) Normal 10-29-2019 [place] [facility] ROWENA JAQUEZ ([id number]) 1990 [facility] Date Time Provider Department ([id number]) 10/29/19 GONZALES STOLL During your visit today, we recorded the following informati on about you: Joyce Galicia NICOLAS 10/29/2019 4:16 PM Signed Patient calling having diarrhea, vomiting, sore throat , chills, sweats, does not have thermometer to check if fever. Patient was at famil y cook out yesterday. Patient said she is on keto diet, ate vegetables,steak, salad, was around parents, her children, boyfriend, grand mother. Advised to do [facility] visit to see if needs COVID testing done. Dann Mcknight RN 10/29/2019 4:30 PM Signed Pt called, verified by name and birthdate. Pt upset she is o n my chart and can't see a provider. Reviewed below not e with pt and she was [facility]. Pt did not realize there is a diff erence. Pt assisted in getting kimmy and will proceed with seeing a provider. Dann Mcknight RN Allergies As of Date: 10/29/2019 Noted Allergy Reaction NAPROXEN 03/24/2015 2 - Rash PENICILLINS 08/29/2014 4 - Hives Date Reviewed: 10/09/2019 Reviewed by: Steffen Bishop Sonography Technician - Fully Assessed Reason for Visit: if needs COVID testing done [Other] More... Problem List As Of Date 10/29/2019 Noted Resolved Rh negative state in antepartum period [O26.899*09/16/2014 0 08/25/2016 More... 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 with care elsewhere, antepar*03/10/2016 0 08/25/2016 More... History of seizure [Z87.898] 03/10/2016 08/25/2016 More... History of depression [Z87.59, Z86.5*03/10/2016 0 08/25/2016 More... History of delivery [Z98.891] 03/10/2016 08/25/2016 More... PUPP (pruritic urticarial papules and plaques o*05/24/2016 0 08/25/2016 Encounter Status:Closed by DANN MCKNIGHT RN on 10/29/19 cn[facility] (INT[facility]) Normal 10-11-2019 [facility] ROWENA JAQUEZ ([id number]) 1990 [facility] [place] Date Time Provider Department ([id number]) 10/11/19 GONZALES STOLL INTMWS During your visit today, we recorded the following informati on about you: Steffen Bishop Cma 10/11/2019 9:13 AM Signed ----- Message from Aditi Ballard sent at 10/11/2019 8:28 AM EDT ----- X-ray of the shoulder was un remarkable. It is possible shoulder pain is related to the issues with your neck. Aditi Ballard, MINE SUPERVISOR.MARILYNN Bishop Cma 10/11/2019 9:15 AM Signed Patient is notified of all information and verbalizes unders marielena Bishop Cma Allergies As of Date: 10/11/2019 Noted Allergy Reaction NAPROXEN 03/24/2015 2 - Rash PENICILLINS 08/29/2014 4 - Hives Date Reviewed: 10/09/2019 Reviewed by: Steffen Bishop Cma - Fully Assessed Reason for Visit: Results [95] Prescriptions as of 10/11/2019 Sig: PREDNISONE 10 MG TABLET Take 4 tabs daily x 3 days, t* More... Problem List As Of Date 10/11/2019 Noted Resolved Rh negative state in antepartum period [O26.899*09/16/2014 0 08/25/2016 More... 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 with care elsewhere, antepar*03/10/2016 0 08/25/2016 More... History of seizure [Z87.898] 03/10/2016 08/25/2016 More... History of depression [Z87.59, Z86.5*03/10/2016 0 08/25/2016 More... History of delivery [Z98.891] 03/10/2016 08/25/2016 More... PUPP (pruritic urticarial papules and plaques o*05/24/2016 0 08/25/2016 Encounter Status:Closed by STEFFEN BISHOP CMA on 10/11/19 xr shldr >/=3v ap/ady ap/othr rt on 2019-10-09 XR SHLDR >/=3V * * *Final Report* * * Normal [facility] AP/ADY AP/OTHR DATE OF EXAM: Oct 09 2019 6:28PM [place] ([id number]) RT WOX 5253 - XR SHLDR >/=3V AP/ADY AP/OTHR RT / [id number] PROCEDURE REASON: multiple diagnoses * * * * Physician Interpretation * * * * EXAMINATION: XR SHLDR >/=3V AP/ADY AP/OTHR RT HISTORY: pt states pain starts right side of neck across fara k of shoulder for 2 years and then worse in the last month with s welling entire right arm and numbness in right hand. not able to dee se above shoulder no inj Chronic right shoulder pain TECHNIQUE: XR SHLDR >/=3V AP/ADY AP/OTHR RT Laterality: RIGHT Number of different views (projections): 3 M: XB_1 COMPARISON: There are no prior relevant studies for comparis on. RESULT: 3 views of the right shoulder show no acute osseous, articular or soft tissue abnormality. Joint spaces are preserved. IMPRESSION: No acute process. Banquet Steward: NATIVIDAD Transcribe Date/Time: Oct 09 2019 6:31P Dictated by : JOYCE TORRES MD This examination was interpreted and the report reviewed and electronically signed by: JOYCE TORRES MD on Oct 09 2019 6:31PM EST [id number] progress on 2019-09 PROGRESS HNO ID: [id number] Normal 10-09-2019 [facility] Author: Bere Muñiz (Rt) Counts Include [address] ([id number]) Service: ? Author Type: Anvil Worker Type: Progress Notes Filed: 10/09/2019 6:28 PM Note Text: Radiology Service Progress Note PATIENT NAME: Rowena Jaquez DATE OF SERVICE: October 09, 2019 TIME: 6:28 PM PATIENT IDENTITY VERIFICATION COMPLETED USING TWO (2) IDENTI FIERS: Name and Date of confirmed by patient verbally. FALL SCREENING: Has the patient had 2 falls in the last year or 1 fall with injury or currently using an Ambulatory Assistive Devic e (Walker, Cane, Wheelchair, Crutches, etc.)? No PATIENT GENDER DATA: Female. status: : No status: NO. PATIENT RELEVANT IMPLANT DATA REVIEWED: Not Applicable RADIOLOGY DEPARTMENT: General X-ray: Exam(s) Completed: Uppe r Extremity X-Ray(s): Shoulder, AP / TRUE AP / AXILLARY right : PERIPHERAL IV DATA: Not applicable SIGNED BY: RT Kika October 09, 2019 6:28 PM PROGRESS HNO ID: [id number] Normal 10-09-2019 [facility] Author: Aditi Subramanian [facility] ([id number]) Service: ? Author Type: Nurse Practitioner Type: Progress Notes Filed: 10/09/2019 6:23 PM Note Text: CC: Patient presents with: right shoulder pain HPI Rowena Jaquez is a 28 year old female who presents wit h right shoulder pain that has been present for months, worsening ov er the past few weeks. Patient is right handed. Injury: Patient does not recall any specific injury.. 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 Described as anywhere from a deep ache to throbbing and kendall p Clicking, locking, popping, feeling like the shoulder is not stable, feeling like the shoulder is giving out: Feels like it pop s and grates with movement. Sometimes it does feel like her shoulder may give out exhibits aggravating factors of Overhead activities and Reac smiley out in front of the body. exhibits alleviating factors of Heat therapy. Patient went to the ER for this a few weeks ago. No x-rays d one. Given prescription for muscle relaxant and percocet, neither of th heaven helped. She also reports neck pain, numbness/tingling of the right h and and swelling of the RUE x 2 years. She has been evaluated for ca rpal tunnel with NCT, patient unsure what the results were. She goes to the chiropractor for the neck pain and he has done x-rays, once again unsure of the results. 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 Take with food. cyclobenzaprine (FLEXERIL) 10 mg tablet Take 1 tablet by prema th twice daily as needed for Muscle Spasm. amitriptyline (ELAVIL) 10 mg tablet Take 1 tablet by mouth d aily at bedtime. FAMILY HISTORY Problem Relation Age of Onset - Seizures Father - Arthritis Maternal Grandmother - Thyroid Maternal Grandmother - Diabetes Maternal Grandfather - Heart Maternal Grandfather Social History Tobacco Use - Smoking status: Former Smoker Years: 4.00 Quit date: 05/2014 Years since quittin.3 - Smokeless tobacco: Never Used - Tobacco comment: vaps while at work Substance Use Topics - Alcohol use: Yes Comment: occasionally - Drug use: No REVIEW OF SYSTEMS See HPI PHYSICAL EXAM: General Appearance: Well appearing, alert, in no acute distr ess, well-hydrated, well nourished.. Neck: Inspection: Normal Palpation: Tenderness with palpatio n of cervical spine ROM: full but painful Musculoskeletal: Right shoulder: tenderness with palpation o f biceps tendon, trapezius, clavicle, AC (Acromioclavicular) joint an d shoulder blade. ROM: Limited and painful flexion, extension, abductio n, adduction, internal and external rotation. Special tests: Drop arm: -, Empty Can: -, Infraspinatus: -, Rod:+, Neer + Upper extremities: reflexes: +2 to bilateral U/L extremities .. Muscle strength: 5/5 bilaterally. Non-pitting edema noted to amy FRANKLIN is not new per patient ASSESSMENT/PLAN: 1. Chronic pain in right shoulder - ICD9: 719.41, 338.29, IC D10: M25.511, G89.29 (primary diagnosis) Worsening of chronic right shoulder pain - XR SHOULDER GENERAL 3V OR MORE AP/TRUE AP/OTHER RT today - CONSULT TO ORTHOPAEDICS for further evaluation and recomme ndations - PREDNISONE 10 MG TABLET burst with taper for pain relief - Continue with heat 2. Cervicalgia - ICD9: 723.1, ICD10: M54.2 With possible radicular symptoms right arm. Unclear if relat ed to right shoulder pain. Patient prefers to stay with chiropractor for now, will consider spine medicine if no improvement Prescription instructions reviewed with patient as applicabl e. Potential red flag symptoms discussed with the patient. Reviewed appro priate action plan to take if red flag symptoms occur. Patient agreeable t o treatment plan. ANUJA Osuna on 2019-10-09 CNOV Office Visit (INTMWS) Normal 10-09-19 [place] ROWENA Swain ([id number]) 1990 [facility] Date Time Provider Department ([id number]) 10/09/19 5:40 PM ADITI BALLARD (MARILYNN) INTMWS During your visit today, we recorded the following informati on about you: Aditi Ballard APRN.CNP 10/09/2019 6:23 PM Signed CC: Patient presents with: right shoulder pain HPI Rowena Jaquez is a 28 year old female who presen ts with right shoulder pain that has been present for months, worsening over the pa st few weeks. Patient is right handed. Injury: Patient does not recall any specific inj ury.. Increase in activity or strenuous exercise: no but she does work in a factory requiring manual labor Location: top of shoulder and shoulder blade, clavicle, AC joint and biceps tendon. Described as anywhere from a deep ache to throbbing and kendall p Clicking, locking, popping, feeling like the shoulder is not stable, feeling like the shoulder is giving out: Feels like it pops and grates with movement. Sometimes it does feel like her shoulder may give out exhibits aggravating factors of Overhead activit ies and Reaching out in front of the body. exhibits alleviating factors of Heat therapy. Patient went to the ER for this a few weeks ago. No x-rays d one. Given prescription for muscle relaxant and percocet, neither of th heaven helped. She also reports neck pain, numbness/tingling of the right hand and swelling of the RUE x 2 years. She has been evaluated for ca rpal tunnel with NCT, patient unsure what the results were. She goes to the chiropra ctor for the neck pain and he has done x-rays, once again unsure of the results. 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 Take with food. cyclobenzaprine (FLEXERIL) 10 mg tablet Take 1 t ablet by mouth twice daily as needed for Muscle Spasm. amitriptyline (ELAVIL) 10 mg tablet Take 1 tablet by m outh daily at bedtime. FAMILY HISTORY Problem Relation Age of Onset - Seizures Father - Arthritis Maternal Grandmother - Thyroid Maternal Grandmother - Diabetes Maternal Grandfather - Heart Maternal Grandfather Social History Tobacco Use - Smoking status: Former Smoker Years: 4.00 Quit date: 05/2014 Years since quittin.3 - Smokeless tobacco: Never Used - Tobacco comment: vaps while at work Substance Use Topics - Alcohol use: Yes Comment: occasionally - Drug use: No REVIEW OF SYSTEMS See HPI PHYSICAL EXAM: General Appearance: Well kimmy earing, alert, in no acute distress, well-hydrated, well nourished.. Neck: Inspection: Normal Pal pation: Tenderness with palpation of cervical spine ROM: full but painful Musculoskeletal: Right shoulder: tenderness with palpa tion of biceps tendon, trapezius, clavicle, AC (Acromioclavicular) joint and should er blade. ROM: Limited and painful flexion, extension, abduction, adduction , internal and external rotation. Special tests: Drop a rm: -, Empty Can: -, Infraspinatus: -, Rod:+, Neer + Upper extremities: reflexes: +2 to bilateral U/L extremities.. Muscle strength: 5/5 bilaterally. Non-pitting edema noted to RUE, this is not new per patient ASSESSMENT/PLAN: 1. Chronic pain in right shoulder - ICD9: 719.41, 338.29, IC D10: M25.511, G89.29 (primary diagnosis) Worsening of chronic right shoulder pain - XR SHOULDER GENERAL 3V OR MORE AP/TRUE AP/OTHER RT today - CONSULT TO ORTHOPAEDICS for further evaluation and recomme ndations - PREDNISONE 10 MG TABLET burst with taper for pain relief - Continue with heat 2. Cervicalgia - ICD9: 723.1, ICD10: M54.2 With possible radicular symptoms right arm. Unclear if relat ed to right shoulder pain. Patient prefe rs to stay with chiropractor for now, will consider spine medicine if no improvement Prescription instructions reviewed with patient as kimmy licable. Potential red flag symptoms discussed with the patient. Review ed appropriate action plan to take if red flag symptoms occur. Patient agreeable to treatm ent plan. Aditi Ballard, MINE SUPERVISOR.STORM WINDOW INSTALLER Referring Provider: SELF [[id number]] Allergies As of Date: 10/09/2019 Noted Allergy Reaction NAPROXEN 03/24/2015 2 - Rash PENICILLINS 08/29/2014 4 - Hives Date Reviewed: 10/09/2019 Reviewed by: Steffen Bishop Sonography Technician - Fully Assessed Reason for Visit: right shoulder pain [Other] Primary Visit Diagnosis:Chronic pain in right shoulder [M25. 511, G89.29] Other Visit Diagnosis:Cervicalgia [M54.2] Order(s):XR SHOULDER GENERAL 3V OR MORE AP/TRUE AP/OTHER RT [[id number]] Order #: [id number] FUTURE CONSULT TO ORTHOPAEDICS [9026] Order #: [id number]: 1 FUT URE predniSONE (DELTASONE) 10 mg tabletTake 4 tabs daily x 3 day s, then 3 tabs x 3 days, 2 tabs x 3 days, then 1 tab x3 days with food .Disp: 30 tabletRfl: 0 Prescriptions as of 10/09/2019 Sig: PREDNISONE 10 MG TABLET Take 4 tabs daily x 3 days, t* More... Problem List As Of Date 10/09/2019 Noted Resolved Rh negative state in antepartum period [O26.899*09/16/2014 0 08/25/2016 More... 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 with care elsewhere, antepar*03/10/2016 0 08/25/2016 More... History of seizure [Z87.898] 03/10/2016 08/25/2016 More... History of depression [Z87.59, Z86.5*03/10/2016 0 08/25/2016 More... History of delivery [Z98.891] 03/10/2016 08/25/2016 More... PUPP (pruritic urticarial papules and plaques o*05/24/2016 0 08/25/2016 Prescriptions ordered this encounter Disp Refills Start End PREDNISONE 10 MG TABLET 30 t* 0 10/09/2019 10/21/2019 Sig: Take 4 tabs daily x 3 days, then 3 tabs x 3 days, 2 tabs x 3 days, then 1 tab x3 days with food. Medications Discontinued During This Encounter Prescriptions - meloxicam (MOBIC) 15 mg tablet (Discontinued) Reported on 07/23/2019 - cyclobenzaprine (FLEXERIL) 10 mg tablet (Discontinued) Reported on 07/23/2019 - amitriptyline (ELAVIL) 10 mg tablet (Discontinued) Reported on 07/23/2019 Encounter Status:Closed by ADITI BALLARD CNP on 10/09/19 No panel information on 2019-10-09 [facility] ([id number]) cnpn on [facility]) Normal 08-06-2019 [place] [facility] ROWENA JAQUEZ ([id number]) 1990 F [facility] Time Provider Department ([id number]) 08/06/19 BETO ANDERSEN ([facility]) INTMWS During your visit today, we recorded the following informati on about you: Beto Andersen APRN.CNP 08/06/2019 1:56 PM Signed Patient missed our appointment today at 140. Please le t her know that I have ordered follow up laboratory studies based on her recent ED visit. She may complete these in the next week, will update her with results once available. ANUJA Santnaa Ma 08/06/2019 2:17 PM Signed Patient notified. Allergies As of Date: 08/06/2019 Noted Allergy Reaction NAPROXEN 03/24/2015 2 - Rash PENICILLINS 08/29/2014 4 - Hives Date Reviewed: 07/23/2019 Reviewed by: Freddy Nielson ([employer] [facility]) Debbie - Fully Assessed Reason for Visit: Appointment [[id number]] Primary Visit Diagnosis:Hypokalemia [E87.6] Other Visit Diagnosis:Abnormal RBC [R71.8] Order(s):BASIC METABOLIC PNL [SQBMP] Order #: [id number] FUT URE CBC + DIFF [SQCBCDIF] Order #: [id number] FUTURE Prescriptions as of 08/06/2019 Sig: MELOXICAM 15 MG TABLET Take 1 tablet by mouth once d* Patient not taking: Reported on 07/23/2019 CYCLOBENZAPRINE 10 MG TABLET Take 1 tablet by mouth twice * Patient not taking: Reported on 07/23/2019 AMITRIPTYLINE 10 MG TABLET Take 1 tablet by mouth daily * Patient not taking: Reported on 07/23/2019 More... Problem List As Of Date 08/06/2019 Noted Resolved Rh negative state in antepartum period [O26.899*09/16/2014 0 08/25/2016 More... Post depression [O99.345, F53.0] 05/05/2015 Short interval between pregnancies affecting pr*03/10/2016 0 08/25/2016 More... with care elsewhere, antepar*03/10/2016 0 08/25/2016 More... History of seizure [Z87.898] 03/10/2016 08/25/2016 More... History of depression [Z87.59, Z86.5*03/10/2016 0 08/25/2016 More... History of delivery [Z98.891] 03/10/2016 08/25/2016 More... PUPP (pruritic urticarial papules and plaques o*05/24/2016 0 08/25/2016 Encounter Status:Closed by ALFREDO EUGENE MA on 08/06/19 cbc and differential on 2019-08-06 Abs Baso 0.04 <0.11 k/uL Normal 08-06-2019 [facility] ([id number]) Comment: Performed By: #### CBCDIF B MP #### [facility] [address] [place], [place] [address] Abs Gilliam 1.14 <0.87 k/uL High 08-06-2019 [facility] ([id number]) Comment: Performed By: #### CBCDIF B MP #### [facility] [address] [place], [place] [address] Abs Neut 2.67 1.45-7.50 k/uL Normal 08-06-2019 [facility] ([id number]) Comment: Performed By: #### CBCSAMUEL B MP #### [facility] [address] [place] [address] Absolute nRBC <0.01 <0.01 Normal 08-06-2019 [facility] ([id number]) Comment: Performed By: #### CBCSAMUEL B MP #### [facility] [address] [place] [address] Basophils/100 WBC (Bld) 0.7 % Normal 2019 [facility] ([id number]) Comment: Performed By: #### CBCSAMUEL B MP #### [facility] [address] [place] [address] DTYPE Auto Diff Normal 08-06-2019 [facility] ([id number]) Comment: Performed By: #### CBCSAMUEL B MP #### [facility] [address] [place] [address] Eosinophils (Bld) [#/Vol] 0.11 <0.46 k/uL Normal 07-21 [facility] ([id number]) Comment: Performed By: #### CBCSAMUEL B MP #### [facility] [address] [place] [address] Eosinophils/100 WBC (Bld) 1.8 % Normal 07-21 [facility] ([id number]) Comment: Performed By: #### CBCLUCILAF B MP #### [facility] [place] [address] [place] [address] Erythrocyte distribution 12.6 11.5-15.0 % Normal 08-05 [facility] width (RBC) [Ratio] [place] ([id number]) Comment: Performed By: #### CBCLUCILAF B MP #### [facility] [address] [place] [address] Hematocrit (Bld) [Volume 38.3 36.0-46.0 % Normal 08-05 [facility] ([id number]) Comment: Performed By: #### Joe LOPEZ MP #### [facility] [address] [place], [place] [address] Hemoglobin (Bld) 13.2 11.5-15.5 g/dL Normal 08-06-2019 [facility] [Mass/Vol] [place] ([id number]) Comment: Performed By: #### Joe LOPEZ MP #### [facility] [address] [place], [place] [address] Lymphocytes (Bld) [#/Vol] 2.05 1.00-4.00 k/uL Normal 07-21 [facility] ([id number]) Comment: Performed By: #### Joe LOPEZ MP #### [facility] [address] [place], [place] [address] Lymphocytes/100 WBC (Bld) 34.1 % Normal 07-21 [facility] ([id number]) Comment: Performed By: #### Joe LOPEZ MP #### [place] [address] [place], [place] [address] MCH (RBC) [Entitic mass] 31.5 26.0-34.0 pG Normal 08-05 [facility] ([id number]) Comment: Performed By: #### CBCJoe BAKER MP #### [facility] [address] [place], [place] [address] MCHC (RBC) [Mass/Vol] 34.5 30.5-36.0 g/dL Normal 08-06-19 [facility] ([id number]) Comment: Performed By: #### CBCJoe BAKER MP #### [facility] [address] [place], [place] [address] MCV (RBC) [Entitic vol] 91.4 80.0-100.0 fL Normal 08-05 [facility] ([id number]) Comment: Performed By: #### CBCSAMUEL B MP #### [facility] [address] [place], [place] [address] Monocytes/100 WBC (Bld) 18.9 % Normal 2019 [facility] ([id number]) Comment: Performed By: #### CBCLUCILAF B MP #### [facility] [place] [address] Neutrophils/100 WBC (Bld) 44.5 % Normal 07-21 [facility] ([id number]) Comment: Performed By: #### CBCSAMUEL B MP #### [address] [address] NRBCs 0.0 0 /100 WBC Normal 08-06-2019 [facility] ([id number]) Comment: Performed By: #### CBCSAMUEL B MP #### [place] [address] [place], [place] [address] Platelet mean volume 10.2 9.0-12.7 fL Normal 0 [facility] (Bld) [Entitic vol] [place] ([id number]) Comment: Performed By: #### CBCSAMUEL B MP #### [place] [address] [place], [place] [address] Platelets (Bld) [#/Vol] 317 150-400 k/uL Normal 2019 [facility] ([id number]) Comment: Performed By: #### CBCSAMUEL B MP #### [facility] [place] [address] [place], [place] [address] RBC (Bld) [#/Vol] 4.19 3.90-5.20 m/uL Normal 08-06-2019 [facility] ([id number]) Comment: Performed By: #### CBCLUCILAF B MP #### [facility] [address] [place], [place] [address] WBC (Bld) [#/Vol] 6.02 3.70-11.00 k/uL Normal 08-06-2019 [facility] ([id number]) Comment: Performed By: #### Joe LOPEZ MP #### [facility] [address] [place], [place] [address] basic metabolic panl on 2019-08-06 Anion gap [Moles/Vol] 16 9-18 mmol/L Normal 08-06-19 [facility] ([id number]) Comment: Performed By: #### Joe LOPEZ MP #### [facility] [address] [place], [place] [address] Calcium [Mass/Vol] 9.6 8.5-10.2 mg/dL Normal 08-06-2019 [facility] ([id number]) Comment: Performed By: #### Joe LOPEZ MP #### [facility] [address] [place], [place] [address] Chloride [Moles/Vol] 103 97-105 mmol/L Normal 0 [facility] ([id number]) Comment: Performed By: #### Joe LOPEZ MP #### [facility] [address] [place], [place] [address] CO2 [Moles/Vol] 20 22-30 mmol/L Low 08-06-2019 [facility] ([id number]) Comment: Performed By: #### Joe LOPEZ MP #### [facility] [address] [place], [place] [address] Creatinine [Mass/Vol] 0.82 0.58-0.96 mg/dL Normal 08-06-19 [facility] ([id number]) Comment: Performed By: #### Joe LOPEZ MP #### [facility] [address] [place], [place] [id number] eGFR- Amer. >60 Normal 08-06-2019 [facility] ([id number]) Comment: Performed By: #### Joe LOPEZ MP #### [facility] [address] [place] [id number] GFR/1.73 sq M predicted >60 mL/min/{1.73_m2} Normal 08-06-2019 [facility] among non-blacks MDRD [place] ([id number]) (S/P/Bld) [Vol rate/Area] Comment: Result Comment: eGFR (Estima maggie GFR) Units of measure: mL/min/1.73 meters squared eGFR is derived from the ree xpressed MDRD Study equation using the following parameters: serum creatinine, age, gender and race. The creatinine assay has been calibrated to be traceable to IDMS. An eGFR <60 mL/min/1.73m2 fo r >3 months is consistent with chronic kidney disease. Refer to KDOQI guidelines for clinical interpretation. In patients with unstable re nal function, e.g. those with acute kidney injury, the eGFR may not accurately reflect actual GFR. Performed By: #### Joe LOPEZ MP #### [facility] [address] [place] [id number] Glucose [Mass/Vol] 79 74-99 mg/dL Normal 08-06-2019 [facility] ([id number]) Comment: Result Comment: The [place] [employer] (ADA) provides guidance for cutoff values for fasting glucose and random glucose. The ADA defines fasting as no caloric intake for at least 8 hours. Fas ting plasma glucose results between 100 to 125 mg/dL indicate increased risk for diabetes (prediabetes). Fasting plasma glucose resul ts greater than or equal to 126 mg/dL meet the criteria for diagnosis of diabetes. In the absence of unequivocal hyperglycemia, results should be confirmed by repeat testing. In a patient with classic s ymptoms of hyperglycemia or hyperglycemic crisis, random plasma glucose results greater than or equal to 200 mg/dL meet the criteria for diagnosis of diabetes. Reference: Standards of [facility] Care in Diabetes 2016, [place] [employer]. Diabetes Care. 2016.39(Suppl 1). Performed By: #### Joe LOPEZ MP #### [facility] [address] [place], [place] [id number] Potassium [Moles/Vol] 3.4 3.7-5.1 mmol/L Low 08-06-19 20 [facility] ([id number]) Comment: Performed By: #### Joe LOPEZ MP #### [facility] [address] [place], [place] [address] Sodium [Moles/Vol] 139 136-144 mmol/L Normal 08-06-2019 [facility] ([id number]) Comment: Performed By: #### Joe LOPEZ MP #### [facility] [address] [place], [place] [address] Urea nitrogen [Mass/Vol] 19 7-21 mg/dL Normal 08-05 [facility] ([id number]) Comment: Performed By: #### Joe LOPEZ MP #### [facility] [address] [place], [place] [id number] progress on 2019-07 PROGRESS HNO ID: [id number] Normal 07-23-2019 [facility] Author: Freddy Nielson ([employer]) Debbie [place] ([id number]) Service: ? Author Type: Nurse Practitioner Type: Progress Notes Filed: 07/23/2019 2:28 PM Note Text: Subjective HPI Rowena Jaquez is a 28 year old female who presents wit h a rash for the last 4 days. The rash is scattered across the body over the arms, abdomen, and legs. She recently had an hardwood finisher in her h ome who found evidence of a flea-like insect which has been cleared. No be d bugs found. Her children and boyfriend also had a similar rash, but thei rs resolved after insect issue was taken care of. There was itching pres ent initially, but that has gotten somewhat better with the application of calamine lotion. Review of Systems Constitutional: Negative for chills, diaphoresis and fever. HENT: Negative for congestion, ear pain and sore throat. Eyes: Negative for discharge and redness. Respiratory: Negative for cough, sputum production, shortnes s of breath and wheezing. Cardiovascular: Negative for chest pain and palpitations. Gastrointestinal: Negative for abdominal pain, diarrhea, viviana sea and vomiting. Skin: Positive for itching and rash. BP 122/74 Pulse 84 Temp 37.2 ?C (99 ?F) (Tympanic) Res p 16 Wt 75.3 kg (166 lb) LMP 10/10/2015 SpO2 99% BMI 28.49 kg/ m? 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 Take with food. cyclobenzaprine (FLEXERIL) 10 mg tablet Take 1 tablet by prema th twice daily as needed for Muscle Spasm. amitriptyline (ELAVIL) 10 mg tablet Take 1 tablet by mouth d aily at bedtime. FAMILY HISTORY Problem Relation Age of Onset - Seizures Father - Arthritis Maternal Grandmother - Thyroid Maternal Grandmother - Diabetes Maternal Grandfather - Heart Maternal Grandfather Social History Tobacco Use - Smoking status: Former Smoker Years: 4.00 Last attempt to quit: 05/2014 Years since quittin.1 - Smokeless tobacco: Never Used - Tobacco comment: vaps while at work Substance Use Topics - Alcohol use: Yes Comment: occasionally - Drug use: No Objective Physical Exam Constitutional: She is oriented to person, place, and time a nd well-developed, well-nourished, and in no distress. HENT: Head: Normocephalic and atraumatic. Eyes: Conjunctivae are normal. Cardiovascular: Normal rate, regular rhythm, normal heart so unds and intact distal pulses. Exam reveals no gallop and no friction rub. No murmur heard. Pulmonary/Chest: Effort normal and breath sounds normal. No respiratory distress. She has no wheezes. She has no rales. She exhibits no tenderness. Musculoskeletal: General: No edema. Lymphadenopathy: She has no cervical adenopathy. Neurological: She is alert and oriented to person, place, an d time. Gait normal. Skin: Skin is warm and dry. She is not diaphoretic. A few scattered scabbed lesions with erythematous base of th e arms, abdomen, and lower legs. No pustules, drainage, or other sig ns of infection. No burrowing noted. ASSESSMENT/PLAN: 1. Dermatitis - ICD9: 692.9, ICD10: L30.9 - 03/24 to unknown insect infestation of home - discussed skin care of rash - follow up if symptoms persist or worsen. - Benadryl as needed - PREDNISONE 20 MG TABLET - TRIAMCINOLONE ACETONIDE 0.1 % TOPICAL CREAM I informed the patient to avoid all NSAID's while on steroid treatment, including: Aleve, Motrin, Advil, or ibuprofen or naproxen. M ay take Tylenol or acetaminophen as needed for pain relief. All of the above discussed with the patient in detail. Pete issa is in agreement with the above plan. Treatment and plan of care di scussed including course of treatment, possible medication side effe cts, and what to watch for in regards to worsening signs and symptoms. All questions addressed. Freddy Lewis APRN.MARILYNN dill on 2019-07-23 CNOV Office Visit (UCWSTR) Normal 07-23-19 [place] [facility] ROWENA JAQUEZ ([id number]) 1990 F [place] Date Time Provider Department ([id number]) 07/23/19 1:15 PM FREDDY LEWIS (SCOTT, [employer] WINDOW INSTALLER)WSTR During your visit today, we recorded the following informati on about you: Temperature Pulse Respiration Blood pressure 99 degrees 84/minute 16/minute 122/74 Weight 75.3 kg Freddy Lewis APRN.STORM WINDOW INSTALLER 07/23/2019 2:28 PM Signed Subjective HPI Rowena Jaquez is a 28 year old female who presen ts with a rash for the last 4 days. The rash is scattered acros s the body over the arms, abdomen, and legs. She recently had an hardwood finisher in her home who found evidence of a flea-like insect which has been cleared. No bed bugs f ound. Her children and boyfriend also had a similar rash, but theirs re solved after insect issue was taken care of. There was itching present initially, but that has gotten somewhat better with the application of calamine lotion. Review of Systems Constitutional: Negative for chills, diaphoresis and fever. HENT: Negative for congestion, ear pain and sore throat. Eyes: Negative for discharge and redness. Respiratory: Negative for cough, sputum production, shortn ess of breath and wheezing. Cardiovascular: Negative for chest pain and palpitations. Gastrointestinal: Negative for abdominal pain, d iarrhea, nausea and vomiting. Skin: Positive for itching and rash. BP 122/74 Pulse 84 Temp 37.2 ?C (99 ?F) (Tympanic) Res p 16 Wt 75.3 kg (166 lb) LMP 10/10/2015 SpO2 99% BMI 28.49 kg/m? 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 Take with food. cyclobenzaprine (FLEXERIL) 10 mg tablet Take 1 t ablet by mouth twice daily as needed for Muscle Spasm. amitriptyline (ELAVIL) 10 mg tablet Take 1 tablet by m outh daily at bedtime. FAMILY HISTORY Problem Relation Age of Onset - Seizures Father - Arthritis Maternal Grandmother - Thyroid Maternal Grandmother - Diabetes Maternal Grandfather - Heart Maternal Grandfather Social History Tobacco Use - Smoking status: Former Smoker Years: 4.00 Last attempt to quit: 05/2014 Years since quittin.1 - Smokeless tobacco: Never Used - Tobacco comment: vaps while at work Substance Use Topics - Alcohol use: Yes Comment: occasionally - Drug use: No Objective Physical Exam Constitutional: She is oriented to perso n, place, and time and well-developed, well-nourished, and in no distress. HENT: Head: Normocephalic and atraumatic. Eyes: Conjunctivae are normal. Cardiovascular: Normal rate, regular rhythm, normal heart sounds and intact distal pulses. Exam reveals no gallop and no friction rub. No murmur heard. Pulmonary/Chest: Effort normal and breath sounds normal. No respiratory distress. She has no wheezes. She has no rales. She exhibi ts no tenderness. Musculoskeletal: General: No edema. Lymphadenopathy: She has no cervical adenopathy. Neurological: She is alert and oriented to person, place, an d time. Gait normal. Skin: Skin is warm and dry. She is not diaphoretic. A few scattered scabbed lesions with erythematous base of the arms, abdomen, and lower legs. No pustules, drainage, or other signs of inf ection. No burrowing noted. ASSESSMENT/PLAN: 1. Dermatitis - ICD9: 692.9, ICD10: L30.9 - 2/2 to unknown insect infestation of home - discussed skin care of rash - follow up if symptoms persist or worsen. - Benadryl as needed - PREDNISONE 20 MG TABLET - TRIAMCINOLONE ACETONIDE 0.1 % TOPICAL CREAM I informed the patient to avoid all NSAID's while on steroid treatment, including: Aleve, Motrin, Advil, or ibup rofen or naproxen. May take Tylenol or acetaminophen as needed for pain relief. All of the above discussed with the dharmesh ent in detail. Patient is in agreement with the above plan. Treatment and plan of care discussed including course of treatment, possible medication side effects, and what to watch for in regards to worsening signs and symptoms. All questions addressed. Freddy Lewis APRN.ST[employer] WINDOW INSTALLER Referring Provider: SELF [[id number]] Allergies As of Date: 07/23/2019 Noted Allergy Reaction NAPROXEN 03/24/2015 2 - Rash PENICILLINS 08/29/2014 4 - Hives Date Reviewed: 07/23/2019 Reviewed by: Freddy Nielson ([employer] [place]) Debbie - Fully Assessed Reason for Visit: Rash [1087] Cmt: x 4 days Primary Visit Diagnosis:Dermatitis [L30.9] Order(s):predniSONE (DELTASONE) 20 mg ta bletTake 2 tablets by mouth once daily for 5 days. Take daily with food.Disp: 10 tabletRfl: 0 triamcinolone acetonide (KENALOG) 0.1 % creamApply 1 applica tion to affected area twice daily for 7 days. Apply to affected area .Disp: 80 gRfl: 0 Prescriptions as of 07/23/2019 Sig: PREDNISONE 20 MG TABLET Take 2 tablets by mouth once * TRIAMCINOLONE ACETONIDE 0.1 %* Apply 1 application to affect * MELOXICAM 15 MG TABLET Take 1 tablet by mouth once d* Patient not taking: Reported on 07/23/2019 CYCLOBENZAPRINE 10 MG TABLET Take 1 tablet by mouth twice * Patient not taking: Reported on 07/23/2019 AMITRIPTYLINE 10 MG TABLET Take 1 tablet by mouth daily * Patient not taking: Reported on 07/23/2019 More... Problem List As Of Date 07/23/2019 Noted Resolved Rh negative state in antepartum period [O26.899*09/16/2014 0 08/25/2016 More... 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 with care elsewhere, antepar*03/10/2016 0 08/25/2016 More... History of seizure [Z87.898] 03/10/2016 08/25/2016 More... History of depression [Z87.59, Z86.5*03/10/2016 0 08/25/2016 More... History of delivery [Z98.891] 03/10/2016 08/25/2016 More... PUPP (pruritic urticarial papules and plaques o*05/24/2016 0 08/25/2016 Prescriptions ordered this encounter Disp Refills Start End PREDNISONE 20 MG TABLET 10 t* 0 07/23/2019 07/28/2019 Route: ORAL Sig: Take 2 tablets by mouth once daily for 5 days. Take teo ly with food. TRIAMCINOLONE ACETONIDE 0.1 % TOPICA* 80 g 0 07/23/201910/2019 Route: TOPICAL Sig: Apply 1 application to affected area twice daily for 7 days. Apply to affected area. Letter Text Encounter Status:Closed by DEBBIE CHAVEZ.FREDDY SUBRAMANIAN on progress note on 07-06-18 Community Development Director Maternal Medicine Normal [place]raine Authentication ConsultDate of Service: Children's Interface Message 06/08/2017[id number] Provider: Vivi Spaulding for Consult: Dr. Shanthi Johnson requests that Rowena be evaluateddue to concerns for an accreta with an anterior placenta and two prior cesareandeliveries.Carin is a 26 y.o. at 21w0d gestation who presents for evaluationdue to concerns for an accreta in the setting of an anterior placenta and twoprior deliveries. Her deliveries were close together. One in03/2015 and the second in 06/2016. After her delivery in 2016, she had an ex-lapdue to a diffuse intra-abdominal staph infection in 07/2016. She then healed bysecondary intention. She had an ultrasound today that did not show any evidenceof an accreta. We briefly discussed the increased risk for blood loss andhysterectomy with an accreta. The patient does not desire future anddesires a tubal ligation with this . We will continue to follow byultrasound and will discuss this further if an accreta is present.Obstetric History T2 L2 SAB0 TAB0 Ectopic0 Multiple0 Live Births2# Outcome Date GA Lbr Carlos/2nd Weight Sex Delivery Anes PTL Lv3 Current2 Term 07/12/16 39w0d 3.544 kg F CS-Unspec EPI Y JOSE D Name: [email or web address] Term 04/17/15 38w0d 3.544 kg M CS-Unspec JOSE D Name: Deborah Complications: Breech deliveryPast Medical History:Diagnosis Date Depression depression PCOS (polycystic ovarian syndrome) UTI (urinary tract infection)Past Surgical History:Procedure Laterality Date ABDOMEN SURGERY 2017 Staph infection in incision. Wound vac and packing SECTIONAllergiesAllergen Reactions Penicillins HivesSocial HistorySocial History Marital status: Significant Other Spouse name: Dante Dugan Number of children: 2 Years of education: HS graduateOccupational History Home Health CareSocial History Main Topics Smoking status: Former Smoker Smokeless tobacco: Former User Comment: former smokier and vaper Alcohol use No Drug use: No Sexual activity: Yes Partners: MaleOther Topics Concern NoneSocial History Narrative NoneInfections Live with someone with or exposed to TB No Partner has hx of genital herpes No Rash or viral illness since last menstruation No History of STI's Hx of MMR No 2nd STI 3rd STI Is there anything else we should know? No Other infectionsGenetics Age is > than 35y as of estimated date No Thalassemia No Neural Tube Defect No Congenital Heart Defect No Down Syndrome No Gumaro-Sachs No Joaquin Disease No Sickle Cell Disease or Trait No Hemophilia, Thrombophilia No Muscular Dystrophy No Cystic Fibrosis No Borger's Chorea No Mental Retardation/Autism No Maternal Metabolic Disorder No Recurrent Loss, or a Stillbirth No Inherited Genetic or Chromosomal Disorder No Illicit; Rec.drugs; Alcohol since last menses NoFamily HistoryProblem Relation Age of Onset Diabetes Mellitus II Maternal Grandmother High Blood Pressure Maternal Grandmother Heart Disease Maternal GrandfatherOutpatient Encounter Prescriptions as of 06/08/2017Medication Sig Dispense Refill MV-Min-Fe Fum-FA-DHA ( 1 PO) Take by mouth Ondansetron HCl (ZOFRAN PO) Take 4 mg by mouth as neededNo facility-administered encounter medications on file as of 06/08/2017. Review of SystemsConstitutional: Negative for fever and chills.Eyes: Negative for visual disturbance.Respiratory: Negative for shortness of breath.Cardiovascular: Negative for chest pain.Gastrointestinal: Negative for nausea, vomiting, abdominal pain, diarrhea andconstipation.Genitourinary: Negative for dysuria.Neurological: Negative for dizziness, weakness, numbness and headaches. Physical ExamNursing note and vitals reviewed.Constitutional: She is oriented to person, place, and time. She appearswell-developed and well-nourished. No distress.Pulmonary/Chest: No respiratory distress.Abdominal: Soft. She exhibits no distension. There is no tenderness. There is norebound and no guarding.Musculoskeletal: She exhibits no edema or tenderness.Neurological: She is alert and oriented to person, place, and time.Skin: Skin is warm and dry. She is not diaphoretic.Psychiatric: She has a normal mood and affect. Her behavior is normal. Judgmentand thought content normal.FHT: PositiveUltrasound Results:Normal anatomic survey. Biometry is consistent with gestational age. No evidenceof an accreta.Impression/Plan:26 y.o. at 21w0d withActive Non-Hospital Problems Diagnosis Date Noted Suspected placental problem not found 06/08/2017 No evidence of an accreta currently Will do a follow up ultrasound in 4-6 weeks to re-evaluate the placenta History of delivery, currently 06/08/2017 h/o delivery x 2 with a take back to the OR approximately 2-3 weekspost operatively for an intra-abdominal staph infection. For repeat delivery and tubal ligation.Follow up in 4-6 weeks for an ultrasound.Jose Edwards MD lab report: miscellaneous lab procedure on 2017-02-25 GE use only - for . Invalid Interpretation 02-25-2017 - [place] [facility] import Code 02-25-2017 Ca re (37910) when terms are not otherwise specified lab report: ct/ng wch by pcr on 2017-02-15 Chlamydia Negative Negative Invalid 02-15-2017 - [place] trachomatis DNA Interpretation 7 [facility] [Presence] in Code (68374 ) Urine by Probe and target amplification method Neisseria Negative Negative Invalid 02-15-2017 - [place] gonorrhoeae Interpretation 02-15-2017 [facility] presence Code (56291) office visit on 08-25-18 Documentation of Done Invalid 08-08-2016 - [place] current medications Interpretation Code 08-08-2016 Infectious (procedure) Disease (94665) Protein mass conc Done 08-08-2016 - [place] 08-08-2016 Infectiou s Disease (4 0978) Tobacco smoking Never Invalid 08-08-2016 - [place] status NHIS Interpretation Code 08-09-19 17 Infectious Disease (4 4691) Tobacco smoking Never smoker Invalid 08-08-2016 - [place] status KYIS Interpretation Code 08-09-19 17 Infectious Disease (4 4691) Tobacco use [facility] Never smoker Invalid 08-08-2016 - [place] Interpretation Code 08-08-2016 Infectious Disease (4 4691) microbiology: culture, deep wound on 2016-08-04 CUDW . 08-04-2016 - [place] Infectious 08-04-2016 Disease ( 89702) CUDW . 08-04-2016 - [place] Infectious 08-04-2016 Disease ( 60771) GE use only - for . Invalid Interpretation 08-04-2016 Infectious [employer] import Code 08-04-2016 Di sease (57427) when terms are not otherwise specified microbiology: culture, blood (wb) on 2016-08-04 Bacteria BCNo growth Invalid 08-04-2016 - [place] identified Cx Nom in 5 days. Interpretation Code 0 08-04-2016 Infectious (Bld) Disease (4 4691) microbiology: culture, wound on 2016-08-03 CUW Vancomycin $ 1 S 08-03-2016 - [place] 08-03-2016 Infectiou s Disease (4 4691) wound culture Vancomycin $ 1 S Invalid [address] [place] [address] Interpretation Code 08-03-2016 [facility] (60856) lab report: cbc-complete blood cnt no di ff on 2016-08-03 Erythrocyte 16.3 11.6-14.6 % High 08-03-2016 - [place] distribution 08-03-2016 Infect ious width Ratio Disease (RBC) (71167) Erythrocyte 52.0 35.1-43.9 fL High 08-03-2016 - [place] distribution 08-03-2016 Infect ious width Ratio Disease (RBC) (30981) Erythrocytes 3.23 4.2-5.4 10*6/u Low 08-03-2016 [facility] (RBC) L 08-03-2016 Infectiou s Disease (56035) Hematocrit (HCT) 29.2 37-47 % Low 08-03-2016 - [place] 08-03-2016 Infectiou s Disease (84329) Hematocrit 29.2 37-47 % Low 08-03-2016 - [place] Volume Fraction 08-03-2016 Inf ectious (Bld) Disease (20237) Hemoglobin mass 9.0 12.0-15.0 g/dL Low 08-03-2016 - [place] conc (Bld) 08-03-2016 Infectio us Disease (61389) MCH 27.9 27.0-32.0 pg Invalid 08-03-2016 - [place] Interpretation 08-03-2016 Infe ctious Code Disease (67742) MCH Entitic mass 27.9 27.0-32.0 pg 08-03-2016 - [place] (RBC) 08-03-2016 Infectiou s Disease (87458) MCHC 30.8 32-36 Low 08-03-2016 - [place] G/GL 08-03-2016 Infectiou s Disease (66099) MCHC mass conc 30.8 32-36 Low 08-03-2016 - [place] (RBC) G/GL 08-03-2016 Infectiou s Disease (26594) MCV 90.4 81-99 fL Invalid 08-03-2016 - [place] Interpretation 08-03-2016 Infe ctious Code Disease (25844) MCV Entitic 90.4 81-99 fL 08-03-2016 - [place] volume (RBC) 08-03-2016 Infect ious Disease (34047) Platelet mean 8.9 6.2-12.0 fL 08-03-2016 - [place] volume Entitic 08-03-2016 Infe ctious volume (Bld) Disease (53903) Platelets 709 150-450 10*3/m High 08-03-2016 - [place] m3 08-03-2016 Infectiou s Disease (00069) Platelets #/vol 709 150-450 10*3/m High 08-03-2016 - [place] (Bld) m3 08-03-2016 Infectiou s Disease (14261) PMV by 8.9 6.2-12.0 fL Invalid 08-03-2016 - [place] Blas-Donna Interpretation 08-03-2016 Inf ectious Code Disease (60045) RBC #/vol (Bld) 3.23 4.2-5.4 10*6/u Low 08-03-2016 - [place] L 08-03-2016 Infectiou s Disease (84001) RDW-CA 16.3 11.6-14.6 % High 08-03-2016 - [place] 08-03-2016 Infectiou s Disease (92318) red blood cell 52.0 35.1-43.9 fL High 08-03-2016 - [place] distribution 08-03-2016 Infect ious width, size Disease density (83656) WBC #/vol (Bld) 10.7 4.4-11.0 10*9/L 08-03-2016 - [place] 08-03-2016 Infectiou s Disease (53938) WBC (Leukocytes) 10.7 4.4-11.0 10*9/L Invalid 08-03-2016 - [place] Interpretation 08-03-2016 Infe ctious Code Disease (72223) lab report: basic metabolic profile (bmp ) on 2016-08-03 Anion gap 8 5-15 mmol/L Invalid 08-03-2016 - [place] Interpretation 08-03-2016 Infe ctious Code Disease (26300) Anion gap molar 8 5-15 mmol/L 08-03-2016 - [place] conc 08-03-2016 Infectiou s Disease (75043) Calcium mass 8.5 8.5-10.1 mg/dL 08-03-2016 [facility] conc 08-03-2016 Infectiou s Disease (56122) Chloride molar 99 98-107 mmol/L 08-03-2016 - [place] conc 08-03-2016 Infectiou s Disease (34739) CO2 32.0 21.0-32. mmol/L Invalid 08-03-2016 - [place] 0 Interpretation 08-03-2016 Infe ctious Code Disease (26062) CO2 ppres 32.0 21.0-32. mmol/L 08-03-2016 - [place] (BldV) 0 08-03-2016 Infectiou s Disease (03368) Creatinine mass 0.67 0.55-1.0 mg/dL 08-03-2016 - [place] conc 2 08-03-2016 Infectiou s Disease (54653) eGFR 136 >60 mL/min Invalid 08-03-2016 - [place] (non-black) Interpretation 08-03-2016 In fectious Code Disease (31568) EST GFR - AA 136 >60 mL/min 08-03-2016 [facility] 08-03-2016 Infectiou s Disease (36882) GFR/1.73 sq M 112 >60 mL/min 08-03-2016 - [place] predicted among 08-03-2016 Inf ectious non-blacks MDRD Dise ase vol rate/area (75493 ) (S/P/Bld) Glucose 83 70-110 mg/dL Invalid 08-03-2016 - [place] Interpretation 08-03-2016 Infe ctious Code Disease (55407) Glucose mass 83 70-110 mg/dL 08-03-2016 [facility] conc 08-03-2016 Infectiou s Disease (58509) Potassium molar 3.6 3.5-5.1 mmol/L 08-03-2016 - [place] conc 08-03-2016 Infectiou s Disease (42495) Sodium molar 139 136-145 mmol/L 08-03-2016 [facility] conc 08-03-2016 Infectiou s Disease (90543) Urea nitrogen 9 7-18 mg/dL 08-03-2016 - [place] mass conc 08-03-2016 Infectiou s Disease (31128) Urea 13.5 10-20 08-03-2016 - [place] nitrogen/Creati RATIO 08-03-2016 Inf ectious nine mass ratio Dise ase (89389) replaced document: cbc w/diff, automated on 2016-08-02 CELLS COUNTED 100 MANUAL 08-02-2016 - [place] DIFF 08-02-2016 Infectiou s Disease (27362) Eosinophils/100 3 0-5 % Invalid 08-02-2016 - [place] leukocytes Interpretation 08-02-2016 Inf ectious Code Disease (28737) Eosinophils/100 3 0-5 % 08-02-2016 - [place] WBC (Bld) 08-02-2016 Infectiou s Disease (81728) Lymphocytes/100 46 19-41 % High 08-02-2016 - [place] leukocytes 08-02-2016 Infectio us Disease (42087) Lymphocytes/100 46 19-41 % High 08-02-2016 - [place] WBC (Bld) 08-02-2016 Infectiou s Disease (24875) Monocytes/100 6 0-10 % Invalid 08-02-2016 - [place] leukocytes Interpretation 08-02-2016 Inf ectious Code Disease (70267) Monocytes/100 WBC 6 0-10 % 08-02-2016 - [place] (Bld) 08-02-2016 Infectiou s Disease (34460) Platelets LM Ql MKD INC ADEQ 08-02-2016 - [place] (Bld) 08-02-2016 Infectiou s Disease (45324) promyelocyte 2 (?) 0-0 High 08-02-2016 - [facility] count, blood 08-02-2016 Infect ious Disease (23850) Promyelocytes 2 (?) 0-0 High 08-02-2016 - [place] #/vol (Bld) 08-02-2016 Infecti ous Disease (12232) RBC morphology NORM C+C NORM C AND 08-02-2016 - [place] finding Nom (Bld) C 08-02-2016 I nfectious Disease (39228) Segmented 43 47-70 % Low 08-02-2016 - [place] Neutrophils/100 08-02-2016 Inf ectious leukocytes Disease (65895) Segmented 43 47-70 % Low 08-02-2016 - [place] neutrophils/100 08-02-2016 Inf ectious WBC (Bld) Disease (60887) total cells 100 MANUAL Invalid 08-02-2016 - [place] counted, blood DIFF Interpretation 08-02-2016 Infectious Code Disease (64737) replaced document: (p) cbc w/diff, autom ated on 2016-08-02 Erythrocyte 16.6 11.6-14.6 % High 08-02-2016 - [place] distribution 08-02-2016 Infect ious width Ratio Disease (RBC) (09805) Erythrocyte 55.3 35.1-43.9 fL High 08-02-2016 - [place] distribution 08-02-2016 Infect ious width Ratio Disease (RBC) (50996) Erythrocytes 3.04 4.2-5.4 10*6/u Low 08-02-2016 [facility] (RBC) L 08-02-2016 Infectiou s Disease (67559) Hematocrit (HCT) 27.4 37-47 % Low 08-02-2016 - [place] 08-02-2016 Infectiou s Disease (72803) Hematocrit 27.4 37-47 % Low 08-02-2016 - [place] Volume Fraction 08-02-2016 Inf ectious (Bld) Disease (11743) Hemoglobin mass 8.3 12.0-15.0 g/dL Low 08-02-2016 - [place] conc (Bld) 08-02-2016 Infectio us Disease (60337) MCHC 30.3 32-36 Low 08-02-2016 - [place] G/GL 08-02-2016 Infectiou s Disease (34205) MCHC mass conc 30.3 32-36 Low 08-02-2016 - [place] (RBC) G/GL 08-02-2016 Infectiou s Disease (42039) Platelets 650 150-450 10*3/m High 08-02-2016 - [place] m3 08-02-2016 Infectiou s Disease (32988) Platelets #/vol 650 150-450 10*3/m High 08-02-2016 - [place] (Bld) m3 08-02-2016 Infectiou s Disease (30545) RBC #/vol (Bld) 3.04 4.2-5.4 10*6/u Low 08-02-2016 - [place] L 08-02-2016 Infectiou s Disease (34664) RDW-CA 16.6 11.6-14.6 % High 08-02-2016 - [place] 08-02-2016 Infectiou s Disease (79077) red blood cell 55.3 35.1-43.9 fL High 08-02-2016 - [place] distribution 08-02-2016 Infect ious width, size Disease density (16557) WBC #/vol (Bld) 11.4 4.4-11.0 10*9/L High 08-02-2016 - [place] 08-02-2016 Infectiou s Disease (21837) WBC (Leukocytes) 11.4 4.4-11.0 10*9/L High 08-02-2016 - [place] 08-02-2016 Infectiou s Disease (78919) MCH 27.3 27.0-32.0 pg Invalid 08-02-2016 - [place] Interpretation 08-02-2016 Infe ctious Code Disease (79829) MCH Entitic mass 27.3 27.0-32.0 pg 08-02-2016 - [place] (RBC) 08-02-2016 Infectiou s Disease (64341) MCV 90.1 81-99 fL Invalid 08-02-2016 - [place] Interpretation 08-02-2016 Infe ctious Code Disease (00931) MCV Entitic 90.1 81-99 fL 08-02-2016 - [place] volume (RBC) 08-02-2016 Infect ious Disease (17504) Platelet mean 8.6 6.2-12.0 fL 08-02-2016 - [place] volume Entitic 08-02-2016 Infe ctious volume (Bld) Disease (94575) PMV by 8.6 6.2-12.0 fL Invalid 08-02-2016 - [place] Blas-Donna Interpretation 08-02-2016 Inf ectious Code Disease (42377) lab report: cbc w/diff, automated on 2016-08-02 Lymphocytes 5.24 X10 0.83-4.51 High 08-02-2016 - [place] 3/UL 08-02-2016 Infectiou s Disease (43075) Lymphocytes 5.24 X10 0.83-4.51 High 08-02-2016 - [place] #/vol (Bld) 3/UL 08-02-2016 Infecti ous Disease (05230) neutrophil 4.9 X10 2.0-7.7 Invalid 08-02-2016 - [place] count, blood 3/UL Interpretation Code 017 Infectious Disease (88582) Neutrophils 4.9 X10 2.0-7.7 08-02-2016 - [place] #/vol (Bld) 3/UL 08-02-2016 Infecti ous Disease (43387) Pathologist Cyto May foll 08-02-2016 - [place] stain ID Nom 08-02-2016 Infect ious (Cervical or Disease vaginal smear or (22 691) scraping) replaced document: cbc w/diff, automated on 2016-08-01 Band form 2 % 0-5 08-01-2016 - [place] Infectious neutrophils #/vol 08-01-2016 D isease (53579) (Bld) CELLS COUNTED 100 MANUAL DIFF 08-01-2016 - [place] Infectious 08-01-2016 Disease ( 01286) Lymphocytes/100 WBC 25 19-41 % 08-01-2016 - [place] Infectious (Bld) 08-01-2016 Disease ( 40346) Metamyelocytes/100 2 0-1 % High 08-01-2016 - [place] Infectious leukocytes 08-01-2016 Disease (80935) Metamyelocytes/100 2 0-1 % High 08-01-2016 - [place] Infectious WBC (Bld) 08-01-2016 Disease ( 49012) Monocytes/100 WBC 7 0-10 % 08-01-2016 - [place] Infectious (Bld) 08-01-2016 Disease ( 04014) Platelets LM Ql MOD INC ADEQ 08-01-2016 - [place] Infectious (Bld) 08-01-2016 Disease ( 75285) RBC morphology NORM C+C NORM C AND C 08-01-2016 - [place] Infectious finding Nom (Bld) 08-01-2016 D isease (62653) Segmented 64 47-70 % 08-01-2016 - [place] Infectious neutrophils/100 WBC 08-01-2016 Disease (24458) (Bld) replaced document: (p) culture, wound on 2016-08-01 CUW Wound CultureNo 08-01-2016 - [place] growth-Final to 08-01-2016 Inf ectious follow Disease (4 9130) wound culture Wound CultureNo Invalid 08-01-2016 - [place] growth-Final to Interpretation Code 07-21 Infectious follow Disease (4 4278) replaced document: (p) culture, deep wou nd on 2016-08-01 CUDW Cult, 08-01-2016 - [place] AnaerobicChecking for 08-02-19 17 Infectious anaerobes, further D isease studies to follow. ( 05253) GE use only - Cult, Invalid 08-01-2016 - [place] for [employer] AnaerobicChecking for Interpretation 08-01-2016 Infectious import when anaerobes, further Code Disease terms are not studies to follow. (61205) otherwise specified replaced document: (p) culture, blood (w b) on 2016-08-01 Bacteria identified BCNo growth in 48 - [place] Infectious Cx Nom (Bld) hours. 08-01-2016 Diseas e (07811) replaced document: (p) cbc w/diff, autom ated on 2016-08-01 Erythrocyte 53.8 35.1-43.9 fL High 08-01-2016 - [place] distribution width 08-01-2016 Infectious Ratio (RBC) Disease (84042) Erythrocyte 16.4 11.6-14.6 % High 08-01-2016 - [place] distribution width 08-01-2016 Infectious Ratio (RBC) Disease (12158) Hematocrit Volume 24.6 37-47 % Low 08-01-2016 - [place] Fraction (Bld) 08-01-2016 Infe ctious Disease (4 4691) Hemoglobin mass 7.7 12.0-15.0 g/dL Low 08-01-2016 - [place] conc (Bld) 08-01-2016 Infectio us Disease (4 4691) MCH Entitic mass 27.7 27.0-32.0 pg 08-01-2016 - [place] (RBC) 08-01-2016 Infectiou s Disease (4 4691) MCHC mass conc 31.3 G/GL 32-36 Low 08-01-2016 - [place] (RBC) 08-01-2016 Infectiou s Disease (4 4691) MCV Entitic volume 88.5 81-99 fL 08-01-2016 - [place] (RBC) 08-01-2016 Infectiou s Disease (4 4691) Platelet mean 8.9 6.2-12.0 fL 08-01-2016 - [place] volume Entitic 08-01-2016 Infe ctious volume (Bld) Disease (39359) Platelets #/vol 538 150-450 10*3/mm3 High 08-01-2016 - [place] (Bld) 08-01-2016 Infectiou s Disease (4 4691) RBC #/vol (Bld) 2.78 4.2-5.4 10*6/uL Low 08-01-2016 - [place] 08-01-2016 Infectiou s Disease (4 4691) WBC #/vol (Bld) 14.2 4.4-11.0 10*9/L High 08-01-2016 - [place] 08-01-2016 Infectiou s Disease (4 4691) lab report: cbc w/diff, automated on 2016-08-01 Lymphocytes #/vol 3.55 X10 0.83-4.51 08-01-2016 - [place] Infectious (Bld) 3/UL 08-01-2016 Disease ( 50406) Neutrophils #/vol 9.4 X10 3/UL 2.0-7.7 High 7 - [place] Infectious (Bld) 08-01-2016 Disease ( 60797) Pathologist Cyto May foll 08-01-2016 - [place] Infectious stain ID Nom 08-01-2016 Diseas e (59810) (Cervical or vaginal smear or scraping) lab report: vancomycin, trough level on 2016-07-31 Vancomycin trough mass 8.1 5.0-15.0 ug/mL 017 - [place] Infectious conc 07-31-2016 Disease ( 36207) lab report: cbc w/diff, automated on 2016-07-31 Basophils/100 0.1 0-1 % Invalid 07-31-2016 - [place] leukocytes Interpretation Code 7 [facility] (36026) Basophils/100 WBC 0.1 0-1 % 07-31-2016 - [place] (Bld) 07-31-2016 Infectiou s Disease (4 4691) Eosinophils/100 0.0 0-5 % Invalid 07-31-2016 - [place] leukocytes Interpretation Code 7 [facility] (89547) Eosinophils/100 WBC 0.0 0-5 % 07-31-2016 - [place] (Bld) 07-31-2016 Infectiou s Disease (4 4691) Immature 0.600 0.0-0.9 % 07-31-2016 - [place] granulocytes #/vol 07-31-2016 Infectious (Bld) Disease (4 4691) immature 0.600 0.0-0.9 % Invalid 07-31-2016 - [place] granulocytes, Interpretation Code 2016 [facility] percentage of total (80295) cells, blood Neutrophils/100 86.6 47-70 % High 07-31-2016 - [place] leukocytes 07-31-2016 [facility] (19953) Neutrophils/100 WBC 86.6 47-70 % High 07-31-2016 - [place] (Bld) 07-31-2016 Infectiou s Disease (4 4691) lab report: basic metabolic profile (bmp ) on 2016-07-31 Creatinine 158.63 mL/min Invalid Interpretation 2016 - [place] Code 07-31-2016 [facility] (21313) replaced document: cbc w/diff, automated on 2016-07-30 Anisocytosis 1+ Invalid Interpretation 06- 0-2016 - [place] Infectious presence Code 07-30-2016 Disease ( 76664) Anisocytosis Ql 1+ 07-30-2016 - [place] Infectious (Bld) 07-30-2016 Disease ( 76688) Hypochromia presence 1+ Invalid Interpretat ion 07-30-2016 - [place] Infectious Code 07-30-2016 Disease ( 87988) Hypochromia Ql (Bld) 1+ 7 - [place] Infectious 07-30-2016 Disease ( 99335) replaced document: (p) cbc w/diff, autom ated on 2016-07-30 complete blood SCANNED Invalid 07-30-2016 - [place] count (CBC), Interpretation Code 017 Infectious comments Disease (4 4691) SMEAR COMMENT SCANNED 07-30-2016 - [place] 07-30-2016 Infectiou s Disease (4 4691) Basophils/100 0.1 0-1 % Invalid 07-30-2016 - [place] leukocytes Interpretation Code 7 Infectious Disease (4 4691) Eosinophils/100 0.1 0-5 % Invalid 07-30-2016 - [place] leukocytes Interpretation Code 7 Infectious Disease (4 4691) immature 0.500 0.0-0. % Invalid 07-30-2016 - [place] granulocytes, 9 Interpretation Code 2016 Infectious percentage of Diseas e (10140) total cells, blood Neutrophils/100 78.9 47-70 % High 07-30-2016 - [place] leukocytes 07-30-2016 Infectio us Disease (4 4691) lab report: prothrombin time w/inr on 2016-07-30 Coagulation 16.0 11.7-14.9 High 07-30-2016 - [place] tissue factor SECONDS 07-30-2016 Infec tious induced in Disease platelet poor (15235 ) plasma INR Coag 1.3 {INR 07-30-2016 - [place] RelTime (PPP) } 07-30-2016 Infec tious Disease (18137) INR in blood by 1.3 {INR Invalid 07-30-2016 - [place] coagulation } Interpretation 07-30-2016 In fectious Code Disease (44783) lab report: partial thromboplast time on 2016-07-30 aPTT 42.8 24.1-36.2 s High 07-30-2016 - 07-30- 017 [place] Infectious Disease (53229) lab report: lactic acid on 2016-07-30 Lactate 1.4 0.4-2.0 mmol/L Invalid Interpretation 017 - [place] Infectious Code 07-30-2016 Disease ( 66902) lab report: comprehensive metabolic prof il on 2016-07-30 Alanine 23 12-78 U/L Invalid 07-30-2016 - [place] aminotransferase Interpretation 07-31-19 17 Infectious (ALT) Code Disease (42557) Albumin 1.7 3.4-5.0 g/dL Low 07-30-2016 - [place] 07-30-2016 Infectiou s Disease (05453) Albumin/Globulin 0.4 0.9-2.4 {ratio Low 07-30-2016 - [place] Ratio RATIO } 07-30-2016 Infectiou s Disease (38206) Alkaline phosphatase 122 45-117 U/L High 7 - [place] (ALP) 07-30-2016 Infectiou s Disease (07187) ALP enzyme act/vol 122 45-117 U/L High 07-30-2016 - [place] (Bld) 07-30-2016 Infectiou s Disease (91340) Aspartate 27 15-37 U/L Invalid 07-30-2016 - [place] aminotransferase Interpretation 07-31-19 17 Infectious (AST) Code Disease (50910) Bilirubin (total) 0.40 0.20-1.0 mg/dL Invalid 07-30-2016 - [place] 0 Interpretation 07-30-2016 Infe ctious Code Disease (94152) Globulin 4.3 2.3-3.5 g/dL High 07-30-2016 - [place] 07-30-2016 Infectiou s Disease (52290) Globulin mass conc 4.3 2.3-3.5 g/dL High 07-30-2016 - [place] (S) 07-30-2016 Infectiou s Disease (13188) Protein 6.0 6.4-8.2 g/dL Low 07-30-2016 - [place] 07-30-2016 Infectiou s Disease (15686) lab report: basic metabolic profile (bmp ) on 2016-07-30 Creatinine 115.83 mL/min Invalid Interpretation 2016 - [place] Infectious Code 07-30-2016 Disease ( 78112) Vital Signs Vital Sign Description Value / Unit Date Location The following section is limited to 5 en tries per type and includes entries from the following time range: [id number] - [id number] 9. BMI (Body Mass Index) 30.55 kg/m2 08-08-2016 - 08-08-2016 [place] Infectious Disease (33578) Body surface area Derived 158.63 mL/min 07-31-2016 - 7 [place] Infectious from formula Disease (24287) Body Temperature 97.7 [degF] 08-08-2016 - 08-08-2016 [place] Infectious Disease (93600) BP Diastolic 75 mm[Hg] 08-08-2016 - 08-08-2016 [place] Infectious Disease (05162) BP Systolic 112 mm[Hg] 08-08-2016 - 08-08-2016 [place] Infect[facility] Disease (94899) Height 162.56 cm 08-08-2016 - 08-08-2016 [place] Infectious Disease (36707) Pulse (Heart Rate) 77 /min 08-08-2016 - 08-08-2016 [place] Infect[facility] Disease (01451) Pulse Oximetry 99 % 08-08-2016 - 08-08-2016 [place] Infectious Disease (82302) Respiratory Rate 18 /min 08-08-2016 - 08-08-2016 [place] Infect[facility] Disease (54152) Weight 80.74 kg 08-08-2016 - 08-08-2016 [place] Infectious Disease (14895) Encounters Date Type Reason Provider Location 08-21-2017 Ambulatory [facility]SE [facility]AR[facility] [place] [facility] ([id number] [phone]) JOSE FRANCISCO STOLL 07-10-2017 - Amb[id number] GONZALES STOLL 06-08-2017 - Ambulatory [facility] 06-08-2017 [facility] ([phone]) JOSE FRANCISCO STOLL 10-09-2019 - Patient encounter Chronic pain of Aditi ([facility] [place]) Older Xr I nternal Medicine 10-09-2019 procedure right upper limb [facility] Sofia Sofia Comment: Chronic pain in right should er (Primary Dx); Cervicalgia Radiology XR 10-29-2019 - 10-29-2019 Telephone encounter Gonzales cárdenas Internal Medicine Sofia Comment: if needs COVID testing done covid question 10-11-2019 - 10-11-2019 Telephone encounter Gonzales cárdenas Internal Medicine Sofia Comment: Results Procedures Procedure Name Date Provider Location Radex shoulder complete minimum 2 10-09-2019 Aditi ([facility] [place]) Chandler liliya [facility] ([id number]) views Plan of Treatment Plan Description Date Location DTAP,TDAP,TD (9 - Td) DTAP,TDAP,TD (9 - Td) 05-12-2026 - [facility] 05-12-2026 ([id number]) PAP TESTING PAP TESTING 11-24-2022 - [facility] 11-24-2022 ([id number]) INFLUENZA (#1) INFLUENZA (#1) 2019 - [facility] 10-22-2019 ([id number]) HPV TESTING HPV TESTING 2018 - [facility] 2018 ([id number]) Appointment no information 08-08-2016 - Sofia Infectio us 08-08-2016 Disease ([id number]) Immunizations Vaccine Notes Status Date Location DTaP (Age<7) diphtheria, tetanus (completed) 11-23-1993 - [facility] toxoids and acellular 11-23-1993 ([id number] ) pertussis vaccine DTaP (Age<7) diphtheria, tetanus (completed) 05-22-1990 - [facility] toxoids and acellular 05-22-1990 ([id number] ) pertussis vaccine DTaP (Age<7) diphtheria, tetanus (completed) 06-16-1989 - [facility] toxoids and acellular 06-16-1989 ([id number] ) pertussis vaccine DTaP (Age<7) diphtheria, tetanus (completed) 05-16-1989 - [facility] toxoids and acellular 05-16-1989 ([id number] ) pertussis vaccine DTaP (Age<7) diphtheria, tetanus (completed) 1988 - [facility] toxoids and acellular 1988 (56393 ) pertussis vaccine Hib - 4 Dose Schedule haemophilus (completed) 02-01-1990 - [facility] influenzae type b 02-01-1990 (21696) vaccine, HbOC conjugate Influenza Seasonal influenza, (completed) 11-28-2014 - [facility] Inj Quadrivalent Age injectable, 11-28-2014 (71699) 3+ quadrivalent, contains preservative MMR measles, mumps and (completed) 06-11-2001 - [facility] rubella virus vaccine 06-11-2001 ([id number] ) MMR measles, mumps and (completed) 02-01-1990 - [facility] rubella virus vaccine 02-01-1990 ([id number] ) IPV poliovirus vaccine, (completed) 11-23-1993 - [facility] inactivated 11-23-1993 ([id number]) IPV poliovirus vaccine, (completed) 05-22-1990 - [facility] inactivated 05-22-1990 ([id number]) IPV poliovirus vaccine, (completed) 05-16-1989 - [facility] inactivated 05-16-1989 ([id number]) IPV poliovirus vaccine, (completed) 1988 - [facility] inactivated 1988 (35727) Rho D Immune Globulin RHO(D) immune (completed) 04-27-2016 - [facility] Inj globulin- IV or IM 04-27-2016 ([id number]) Rho D Immune Globulin RHO(D) immune (completed) 02-24-2015 - [facility] Inj globulin- IV or IM 02-24-2015 (65543) Tdap (Age 7+) tetanus toxoid, (completed) 05-12-2016 - [facility] linic reduced diphtheria 05-12-2016 (61797) toxoid, and acellular pertussis vaccine, adsorbed Tdap (Age 7+) tetanus toxoid, (completed) 04-27-2016 - [facility] linic reduced diphtheria 04-27-2016 ([id number]) toxoid, and acellular pertussis vaccine, adsorbed Tdap (Age 7+) tetanus toxoid, (completed) 02-24-2015 - [facility] linic reduced diphtheria 02-24-2015 (33279) toxoid, and acellular pertussis vaccine, adsorbed Payers Payer Name Policy Number Location [facility] [id number] [facility] ([id number]) [facility] MEDICAID [id number] [facility] ([id number] [phone]) The following information is from the original human readable contentNo Payer Records Found Social History Type Social History Date Location Description Tobacco smoking Former smoker 10-09-2019 - [facility] status NHIS 10-09-2019 ([id number]) History of tobacco Current smoker 05-21-2014 [facility] karlee use (47427) Tobacco use and Never used 10-09-2019 - [facility] exposure 10-09-2019 (75078) Alcohol intake Current drinker of 10-09-2019 [facility] karlee alcohol (finding) 10-09-2019 (04065) Tobacco Comment vaps while at work 11-11-2016 - [facility]lee 11-11-2016 (09125) Alcohol Comment occasionally 04-18-2018 - [facility] 04-18-2018 (91270) Sex Assigned At Not on file [facility] ([id number]) Exposure to Not sure [facility] SARS-CoV-2 (event) (78603) The following information is from the original human readable contentNo Social History Records FoundNo Social History Records FoundNo Social History Records Found Summary Purpose Family History No Family History Records FoundNo Family History Records Found Advance Directives No Advanced Directives Records FoundNo Advanced Directives Records Found Reason for Referral Status Reason Specialty Diagnoses / Referred By Referred To Procedures Contact Contact Authorized PCP Requested Orthopedics Diagnoses Chronic pain in right shoulder Older, Aditi Referral Procedures CONSULT TO ORTHOPAEDICS NEW PATIENT VISIT LEVEL 5 ([facility] [place]) [address] [place] [address] History of Past Illness Problem Noted Date Resolved Date PUPP (pruritic urticarial papules and plaques of ) 05/24/2016 08/25/2016 Short interval between pregnancies affecting in 08/25/2016 third trimester, antepartum Overview: 03/10/2016Patient delivered her previous child 03/2015. This is an unplanned .TKRN with care elsewhere, antepartum 7 08/25/2016 Overview: Girl on us 03/10/2016 Patient is transferring care here from [place]. She recently moved back here from there. Received records from [place] from Dr Delaney. Missing are the lab reports. I called their office to get lab values faxed here. TKRN History of seizure 03/10/2016 08/25/2016 Overview: 03/10/2016 She states she had a seizure in January 2016 during this . She states it was witnessed by some co-worke rs that she rolled her eyes and was shaking. She was seen in the E.R. and states all the testing came back negative. She was referred to a neurologist but never saw one due to moving. She will discuss with Dr Johnson at [facility] tomorrrow.TKRN History of depression 03/10/2016 017 Overview: 03/10/2016Pt has a history of depression treated by Dr Cummins. She has been off medication since September . She believes she is doing well off medication. Discussed increased risks of depres valentine during and and importance of reporting the development or worsening of symptoms should they occur.Pt denies ever having any suicidal thoughts or tendencies or thoughts of hurting others.TKRN History of delivery 03/10/2016 08/25/2016 Overview: Signed consent form for . Shanthi Johnson MD 03/10/2016Pt had a previous C section fo r breech presentation. 74% likelihood she desires a . She will discuss this with Dr Johnson at her visit tomorrow. 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 This is an unplanned .TKRN with care elsewhere, antepartum 7 08/25/2016 Overview: Girl on us 03/10/2016 Patient is transferring care here from [place]. She recently moved back here from there. Received records from [place] from Dr Delaney. Missing are the lab reports. I called their office to get lab values faxed here. TKRN History of seizure 03/10/2016 08/25/2016 Overview: 03/10/2016 She states she had a seizure in January 2016 during this . She states it was witnessed by some co-worke rs that she rolled her eyes and was shaking. She was seen in the E.R. and states all the testing came back negative. She was referred to a neurologist but never saw one due to moving. She will discuss with Dr Johnson at [facility] tomorrrow.TKRN History of depression 03/10/2016 017 Overview: 03/10/2016Pt has a history of depression treated by Dr Cummins. She has been off medication since September . She believes she is doing well off medication. Discussed increased risks of depres valentine during and and importance of reporting the development or worsening of symptoms should they occur.Pt denies ever having any suicidal thoughts or tendencies or thoughts of hurting others.TKRN History of delivery 03/10/2016 08/25/2016 Overview: Signed consent form for . Shanthi Johnson MD 03/10/2016Pt had a previous C section fo r breech presentation. 74% likelihood she desires a . She will discuss this with Dr Johnson at her visit tomorrow. 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 This is an unplanned .TKRN with care elsewhere, antepartum 7 08/25/2016 Overview: Girl on us 03/10/2016 Patient is transferring care here from [place]. She recently moved back here from there. Received records from [place] from Dr Delaney. Missing are the lab reports. I called their office to get lab values faxed here. TKRN History of seizure 03/10/2016 08/25/2016 Overview: 03/10/2016 She states she had a seizure in January 2016 during this . She states it was witnessed by some co-worke rs that she rolled her eyes and was shaking. She was seen in the E.R. and states all the testing came back negative. She was referred to a neurologist but never saw one due to moving. She will discuss with Dr Johnson at [facility] tomorrrow.TKRN History of depression 03/10/2016 017 Overview: 03/10/2016Pt has a history of depression treated by Dr Cummins. She has been off medication since September . She believes she is doing well off medication. Discussed increased risks of depres valentine during and and importance of reporting the development or worsening of symptoms should they occur.Pt denies ever having any suicidal thoughts or tendencies or thoughts of hurting others.TKRN History of delivery 03/10/2016 08/25/2016 Overview: Signed consent form for . Shanthi Johnson MD 03/10/2016Pt had a previous C section fo r breech presentation. 74% likelihood she desires a . She will discuss this with Dr Johnson at her visit tomorrow. 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 This is an unplanned .TKRN with care elsewhere, antepartum 7 08/25/2016 Overview: Girl on us 03/10/2016 Patient is transferring care here from [place]. She recently moved back here from there. Received records from [place] from Dr Delaney. Missing are the lab reports. I called their office to get lab values faxed here. TKRN History of seizure 03/10/2016 08/25/2016 Overview: 03/10/2016 She states she had a seizure in January 2016 during this . She states it was witnessed by some co-worke rs that she rolled her eyes and was shaking. She was seen in the E.R. and states all the testing came back negative. She was referred to a neurologist but never saw one due to moving. She will discuss with Dr Johnson at [facility] tomorrrow.TKRN History of depression 03/10/2016 017 Overview: 03/10/2016Pt has a history of depression treated by Dr Cummins. She has been off medication since September . She believes she is doing well off medication. Discussed increased risks of depres valentine during and and importance of reporting the development or worsening of symptoms should they occur.Pt denies ever having any suicidal thoughts or tendencies or thoughts of hurting others.TKRN History of delivery 03/10/2016 08/25/2016 Overview: Signed consent form for . Shanthi Johnson MD 03/10/2016Pt had a previous C section fo r breech presentation. 74% likelihood she desires a . She will discuss this with Dr Johnson at her visit tomorrow. 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 Patient is right handed. Injury: Patient does not recall any specific injury.. Increase in activity or strenuous exercise: nobut she does work in a factory requiring manual labor Location: top of shoulder and shoulder blade, clavicle, AC joint and biceps tendon. Described as anywhere from a deep ache to throbbing and sharp Clicking, locking, popping, feeling like the shoulder is not stable, feeling like the shoulder is giving out: Feels like it pops and grates with movement. Sometimes it does feel like her shoulder maygive out exhibits aggravating factors of Overhead activities and Reaching out in front of the body. exhibits alleviating factors of Heat therapy. Patient went to the ER for this a few weeks ago. No x-rays done. Given prescription for muscle relaxant and percocet, neither of these helped. She also reports neck pain, numbness/tingling of the right hand and swelling of the RUE x 2 years. She has been evaluated for carpal tunnel with NCT, patient unsure what the results were. She goes to the chiropractor for the neck pain and he has done x-rays, once again unsure of the results. PAST MEDICAL HISTORY Diagnosis Date ? Carpal tunnel syndrome of right wrist 08/01/2018 Mild per EMG study ? fracture small finger right hand ? Infertility, female attempting since age 16 ? PCO (polycystic ovaries) ? 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 Seizure (HCC) 01/2016 possible seizure during PAST SURGICAL HISTORY Procedure Laterality Date ? DELIVERY ONLY 07/12/2016 ? SECTION HX ? CHOLECYSTECTOMY W/CHOLANGIOGRAPHY N/A 03/09/2018 ? HYSTEROSCOPY NEETU STERILIZATION Bilateral 2017 ALLERGIES Naproxen and Penicillins MEDICATIONS meloxicam (MOBIC) 15 mg tablet Take 1 tablet by mouth once daily. Take with food. cyclobenzaprine (FLEXERIL) 10 mg tablet Take 1 tablet by mouth twice daily as needed for Muscle Spasm. amitriptyline (ELAVIL) 10 mg tablet Take 1 tablet by mouth daily at bedtime. FAMILY HISTORY Problem Relation Age of Onset ? Seizures Father ? Arthritis Maternal Grandmother ? Thyroid Maternal Grandmother ? Diabetes Maternal Grandfather ? Heart Maternal Grandfather Social History Tobacco Use ? Smoking status: Former Smoker Years: 4.00 Quit date: 05/2014 Years since quittin.3 ? Smokeless tobacco: Never Used ? Tobacco comment: vaps while at work Substance Use Topics ? Alcohol use: Yes Comment: occasionally ? Drug use: No REVIEW OF SYSTEMS See HPI PHYSICAL EXAM: General Appearance: Well appearing, alert, in no acute distress, well-hydrated, well nourished.. Neck: Inspection: Normal Palpation: Tenderness with palpation of cervical spine ROM: full but painful Musculoskeletal: Right shoulder: tenderness with palpation of biceps tendon, trapezius, clavicle, AC(Acromioclavicular) joint and shoulder blade. ROM: Limited and painful flexion, extension, abduction, adduction, internal and external rotation. Special tests: Drop arm: -, Empty Can: -, Infraspinatus:-, Rod:+, Neer + Upper extremities: reflexes: +2 to bilateral U/L extremities.. Muscle strength: 5/5 bilaterally. Non-pitting edema noted to RUE, this is not new per patient ASSESSMENT/PLAN: 1. Chronic pain in right shoulder - ICD9: 719.41, 338.29, ICD10: M25.511, G89.29 (primary diagnosis) Worsening of chronic right shoulder pain - XR SHOULDER GENERAL 3V OR MORE AP/TRUE AP/OTHER RT today - CONSULT TO ORTHOPAEDICS for further evaluation and recommendations - PREDNISONE 10 MG TABLET burst with taper for pain relief - Continue with heat 2. Cervicalgia - ICD9: 723.1, ICD10: M54.2 With possible radicular symptoms right arm. Unclear if related to right shoulder pain. Patient prefers to stay with chiropractor for now, will consider spine medicine if no improvement Prescription instructions reviewed with patient as applicable. Potential red flag symptoms discussedwith the patient. Reviewed appropriate action plan to take if red flag symptoms occur. Patient agreeable to treatment plan. Aditi Ballard APRN.STORM WINDOW INSTALLER documented in this encounterDaBere resendiz Tech (Rt) - 10/09/2019 6:28 PM EDT Radiology Service Progress Note PATIENT NAME: Rowena Jaquez DATE OF SERVICE: October 09, 2019 TIME: 6:28 PM PATIENT IDENTITY VERIFICATION COMPLETED USING TWO (2) IDENTIFIERS: Name and Date of confirmed by patient verbally. FALL SCREENING: Has the patient had 2 falls in the last year or 1 fall with injury or currently using an Ambulatory Assistive Device (Walker, Cane, Wheelchair, Crutches, etc.)? No PATIENT GENDER DATA: Female. status: : No status: NO. PATIENT RELEVANT IMPLANT DATA REVIEWED: Not Applicable RADIOLOGY DEPARTMENT: General X-ray: Exam(s) Completed: Upper Extremity X- Ray(s): Shoulder, AP / TRUE AP / AXILLARY right : PERIPHERAL IV DATA: Not applicable SIGNED BY: RT Kika October 09, 2019 6:28 PM documented in this encounter Assessments Diagnosis Chronic pain in right shoulder - Primary Pain in joint, shoulder region Cervicalgia Diagnosis Chronic right shoulder pain Pain in joint, shoulder region Additional Source Comments FOR RECORDS PERTAINING TO PATIENTS WHO ARE OR HAVE BEEN ENROLLED IN A CHEMICAL DEPENDENCY/SUBSTANCE ABUSE PROGRAM, SOME INFORMATION MAY BE OMITTED. This clinical summary was aggregated from multiple sources. Caution should be exercised in using it in the provision of clinical care. This summary normalizes information from multiple sources, and as a consequence, information in this document may materially changethe coding, format and clinical context of patient data. In addition, data may be omittedin some cases. CLINICAL DECISIONS SHOULD BE BASED ON THE PRIMARY CLINICAL RECORDS. [facility] provides no warranty or guarantee of the accuracy or completeness of information in this document. UNRECOGNIZED CONTENT PROVIDED BELOW FOR UNRECOGNIZED SECTION INFORMATION SOURCE DATE CREATED AUTHOR AUTHOR'S ORGANIZATIO N 08/21/2017 [facility] pital DATE CREATED AUTHOR AUTHOR'S ORGANIZATIO N 10/31/2019 [facility] UNRECOGNIZED CONTENT PROVIDED BELOW FOR UNRECOGNIZED SECTION Source Comments In the event this information is protected by the Federal Confidentiality of Alcohol and Drug Abuse Patient Records regulations: The Federal rules restrict any use of the information to criminally investigate or prosecute any alcohol or drug abuse patient.[facility] the event this information is protected by the Federal Confidentiality of Alcohol and Drug Abuse Patient Records regulations: The Federal rules restrict any use of the information to criminally investigate or prosecute any alcohol or drug abuse patient.[facility] Hospital[facility] the event this information is protected by the Federal Confidentiality of Alcohol and Drug Abuse Patient Records regulations: The Federal rules restrict any use of the information to criminally investigate or prosecute any alcohol or drug abuse patient.[facility] Hospital[facility] the event this information is protected by the Federal Confidentiality of Alcohol and Drug Abuse Patient Records regulations: The Federal rules restrict any use of the information to criminally investigate or prosecute any alcohol or drug abuse patient.[facility] Hospital[facility] the event this information is protected by the Federal Confidentiality of Alcohol and Drug Abuse Patient Records regulations: The Federal rules restrict any use of the information to criminally investigate or prosecute any alcohol or drug abuse patient.[facility] UNRECOGNIZED CONTENT PROVIDED BELOW FOR UNRECOGNIZED SECTION Reason for Visit Reason Comments right shoulder pain Reason Comments Radiology XR Reason Onset Date Comments Results 10/11/2019 Reason Onset Date Comments if needs COVID testing done 10/29/2019 Reason Onset Date Comments covid question 10/29/2019 UNRECOGNIZED CONTENT PROVIDED BELOW FOR UNRECOGNIZED SECTION Miscellaneous Notes Telephone Encounter - Steffen Bishop Cma - 10/11/2019 9:15 AM EDTPatient is notified of all information and verbalizes understanding Steffen Bishop Cma elephone Encounter - Steffen Bishop Cma - 10/11/2019 9:13 AM EDT ----- Message from Aditi Melendez) Older sent at 10/11/2019 8:28 AM EDT ----- X-ray of the shoulder was unremarkable. It is possible shoulder pain is related to the issues with your neck. Aditi Ballard APRN.CNP documented in this encounterTelephone Encounter - Dann Mcknight RN - 10/29/2019 4:29 PM EDTPt called, verified by name and birthdate. Pt upset she is on my chart and can't see a provider. Reviewed below note with pt and she [facility]. Pt did not realize there is a difference.Pt assisted in getting kimmy and will proceed with seeing a provider. Dann Mcknight RN elephone Encounter - Joyce Galicia LPN - 10/29/2019 4:13 PM EDTPatient calling having diarrhea, vomiting, sore throat, chills, sweats, does not have thermometer to check if fever. Patient was at [employer] out yesterday. Patient said she is on keto diet, ate vegetables,steak, salad, was around parents, her children, boyfriend, grand mother. Advised to do [facility] visit to see if needs COVID testing done. documented in this encounterTelephone Encounter - Pee Martínez Cma - 10/31/2019 9:53 AM EDTTC to patient. No answer. Unable to LM on VM. VM not set up. My Chart message sent. Pee Martínez Cma elephone Encounter - Aditi Ballard) - 10/30/2019 5:26 PM EDTShe also has the option of getting tested at [facility] in [place], testing is free Aditi Ballard APRN.CNP elephone Encounter - Linda Burkett LPN - 10/29/2019 5:04 PM EDTPt called back at 5 pm. she wants to be tested for COVID and does not want an apt. She called [facility] and it was going to cost her $55.00 and she can't afford this. I offered her a virtual apt her tomorrow and declined. She said if she misses 1 more day of work she will loose her job. I then instructed her to go to ER. Linda Burkett LPN documented in this encounter
--- OUTSIDE RECORDS SUMMARY | 2019-12-08 07:55 | XMS RPT_ITS | CCD ---
:1990 External Reference #:[id number] Author Organization [facility] Care Team Providers Name Role Phone Signs Alyce BOLAND Unavailable Salazar PODIATRIC MEDICINE PROFESSOR, L Unavailable Unavailable Signs Maylin BOLAND Unavailable Daan Johnson MD Unavailable EHRENBERG BUCHFAVIOLA Unavailable Unavailable MARCANTHONY, E Unavailable Unavailable GANTA, C Unavailable Unavailable CORTES Unavailable Unavailable MARCANTHONY, E Unavailable Unavailable GANTA, C Unavailable Unavailable EHRENBERG BUCHNER Unavailable Unavailable MARCANTHONY, E Unavailable Unavailable GANTA, C Unavailable Unavailable MARCANTHONY, E Unavailable Unavailable GANTA, C Unavailable Unavailable EHRENBERG BUCHNER Unavailable Unavailable Salazar PODIATRIC MEDICINE PROFESSOR, L Unavailable Unavailable Salazar PODIATRIC MEDICINE PROFESSOR, L Unavailable Unavailable Salazar PODIATRIC MEDICINE PROFESSOR, L Unavailable Unavailable Salazar PODIATRIC MEDICINE PROFESSOR, L Unavailable Unavailable Ganta Primary Care Provider Allergies Reported Allergen Reaction(s) Severity Date of Onset Location naproxen Critical, Critical 08-08-2016 - [facility] (88106) naproxen Rash Critical, Critical 03-24-2015 - [place] [facility] nfectious Disease (86477) penicillin g Critical, Critical 08-08-2016 - [place] I nfectious Disease (67383) penicillin g Critical, Critical 08-08-2016 - [facility] (07104) Penicillins Hives 08-29-2014 - [facility]' Translations: [ Hospital Rep ository PENICILLINS] Medications Medication Name Sig Date Prescriber Location Acetaminophen / oxyCODONE PERCOCET 5-325 MG TABS [place] Infectious q 4 hrs prn Disease (55746) OXYCODONE-ACETAMINOPHEN [id number] Kandy Lincoln PODIATRIC MEDICINE PROFESSOR PERCOCET 5-325 MG TABS q 4 hrs prn [place] [facility] (12824) OXYCODONE-ACETAMINOPHEN [id number] Kandy Lincoln LPN PERCOCET 5-325 MG TABS q 4 hrs prn [place] Infect[facility] Disease (27568) OXYCODONE-ACETAMINOPHEN [id number] Kandy Lincoln LPN PERCOCET 5-325 MG TABS q 4 hrs prn [place] [facility] (04948) OXYCODONE-ACETAMINOPHEN [id number] Kandy Lincoln LPN PERCOCET 5-325 MG TABS q 4 hrs prn [place] Infectious Disease (00250) OXYCODONE-ACETAMINOPHEN [id number] Kandy Lincoln LPN Amitriptyline amitriptyline (ELAVIL) 05-28-2018 - Beto ([facility]) [facility] 10 mg tablet Take 1 10-09-2019 Gaurang Lee (75849) tablet by mouth daily ([facility]) Gaurang at bedtime. 30 tablet 1 05/28/2018 10/09/2019 Discontinued (Course of therapy completed) Comment: Take 1 tablet by mouth daily at bedtime. Cephalexin KEFLEX 500 MG CAPS q 6 hrs 08-08-2016 [place] [facility] CEPHALEXIN [id number] Kandy Rosa (30559) Salazar VALENZUELA KEFLEX 500 MG CAPS q 6 hrs CEPHALEXIN 08-08-2016 [place] [facility] (91403) [id number] Kandy Lincoln LPN cyclobenzaprine cyclobenzaprine 06-11-2018 - Beto ([facility]) [facility] (FLEXERIL) 10 mg tablet 10-09-2019 Gaurang Lee (441 95) Indications: Right ([facility]) Gaurang wrist pain Take 1 tablet by mouth twice daily as needed for Muscle Spasm. 20 tablet 0 06/11/2018 10/09/2019 Discontinued (Course of therapy completed) Comment: Take 1 tablet by mouth twice daily as needed for Muscle Spasm. ertapenem INVANZ 1 GM SOLR q 24 hrs ERTAPENEM [place] [facility] (47099) SODIUM [id number] Kandy Lincoln LPN INVANZ 1 GM SOLR q 24 hrs ERTAPENEM SODIUM [place] [facility] (34096) [id number] Kandy Lincoln LPN INVANZ 1 GM SOLR q 24 hrs ERTAPENEM SODIUM [place] [facility] (27823) 52521520089 Kandy Lincoln LPN INVANZ 1 GM SOLR q 24 hrs ERTAPENEM SODIUM [place] [facility] (80465) [id number] Kandy Lincoln LPN INVANZ 1 GM SOLR q 24 hrs ERTAPENEM SODIUM [place] [facility] (54869) [id number] Kandy Lincoln LPN ferrous gluconate FERROUS GLUCONATE 325 [place] [facility] (36 Fe) MG ORAL TABLET Disea se (65408) bid FERROUS GLUCONATE [id number] Kandy Lincoln LPN Folic Acid FOLIC ACID 1 MG TABS q [place] [facility] FOLIC ACID Disease (73323) 08185470320 Kandy Lincoln PODIATRIC MEDICINE PROFESSOR Ibuprofen IBUPROFEN 800 MG TABS [place] [facility] q 8 hrs prn IBUPROFEN Diseas e (86447) [id number] Kandy Lincoln LPN meloxicam meloxicam (MOBIC) 15 09-21-2018 Raegan (Hist) [facility] mg tablet Indications: - Rutti Raegan (441 95) Right arm pain Take 1 10-09-2019 (Hist) Rut[place] tablet by mouth once daily. Take with food. 30 tablet 2 09/21/2018 10/09/2019 Discontinued (Course of therapy completed) Comment: Take 1 tablet by mouth once daily. Take with food. No information available. No information available. [place] [facility] (64810) No information available. [place] [facility] (09683) No information available. [place] [facility] (50838) No information available. [place] [facility] (27763) No information available. [place] [facility] (68262) predniSONE predniSONE (DELTASONE) 10-09-2019 - Aditi ([employer]) [facility] 10 mg tablet 10-21-2019 Older (18015) Indications: Chronic pain in right shoulder Take [...] suspected conditions (not or disability D isease (56459) mental disorders or infectious disease) Spondylosis; Neck pain Active [facility] intervertebral disc (10153) disorders; other back problems Unclassified Drug therapy finding Active 08-08-2016 - [place] Infect[facility] (28607) Unclassified Chronic pain of Active [facility] right upper limb (80734) Past or Other Problems Category Problem Name Status Date Location Bacterial infection; Infection due to Completed 08-08-2016 - [facility] Infect[facility] unspecified site anaerobic bacteria Disea se (36839) Open wounds of head; Unspecified open Completed 08-08-2016 - [facility] [facility] neck; and trunk wound of abdominal Diseas e (04306) wall, unspecified quadrant without penetration into peritoneal cavity, sequela Other complications of Infection of Completed 08-08-2016 - [place] Infectious ; puerperium section Diseas e (75501) affecting management of AND/OR perineal mother wound NEGATED: Highlighted No known active [facility] row has been ruled problems (36108) out!Unclassified Results Result Name Value Range Unit Interpretation Flag Date Location [facility] on 2019-10-29 [facility] Telephone (INTMWS) Normal 10-29-2019 [facility] ROWENA JAQUEZ ([id number]) 1990 [facility] Time Provider Department (87934) 10/29/19 GONZALES STOLL INTMWS During your visit [...] her to go to ER. Linda Ballard, MIX HOUSE TENDER.MARILYNN 10/30/2019 5:26 PM Signed She also has the option of getting tested at [facility] in [place], testing is free Aditi Ballard APRN.MARILYNN Martínez [...] on 10/31/19 DAVID Telephone (INTMWS) Normal 10-29-2019 [place] [facility] ROWENA JAQUEZ ([id number]) 1990 [facility] Date Time Provider Department (16156) 10/29/19 GONZALES STOLL During your visit today, [...] Date Reviewed: 10/09/2019 Reviewed by: Steffen Bishop Laundry Washer - Fully Assessed Reason for Visit: if [...] MCKNIGHT RN on 10/29/19 cnpn on 2019-10-11 [facility] (INTMWS) Normal 10-11-2019 [facility] ROWENA JAQUEZ ([id number]) 1990 F [place] Date Time Provider Department (12700) 10/11/19 GONZALES STOLL INTMWS During your visit today, we recorded the following informati on about you: Steffen Bishop Cma 10/11/2019 9:13 AM Signed ----- Message from Aditi Ballard sent at 10/11/2019 8:28 AM EDT ----- X-ray of the shoulder was un remarkable. It is possible shoulder pain is related to the issues with your neck. Aditi Ballard, MIX HOUSE TENDER.MARILYNN Bishop Cma 10/11/2019 9:15 AM Signed Patient [...] *Final Report* * * Normal [facility] AP/ADY AP/OTHR DATE OF EXAM: Oct 09 2019 6:28PM [place] (40505) RT WOX 5253 - XR SHLDR >/=3V AP/ADY AP/OTHR RT / [id number] PROCEDURE REASON: multiple diagnoses * * * [...] spaces are preserved. IMPRESSION: No acute process. Mine Safety Director: [place] Transcribe Date/Time: Oct 09 2019 6:31P Dictated by : JOYCE TORRES MD This examination was interpreted and the report reviewed and electronically signed by: JOYCE TORRES MD on Oct 09 2019 6:31PM EST [id number] progress on 2019-09 PROGRESS HNO ID: [id number] Normal 10-09-[address] [facility] Author: [facility] (30144) Service: ? Author Type: Event Planning Intern Type: Progress Notes Filed: 10/09/2019 6:28 PM [...] 09, 2019 6:28 PM PROGRESS HNO ID: [id number] Normal 10-09-[address] [facility] Author: Aditi Subramanian [facility] (67343) Service: ? 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 Aditi Ballard, MIX HOUSE TENDER.BUSINESS DEPARTMENT CHAIR Referring Provider: SELF [200] Allergies As of Date: 10/09/2019 Noted Allergy Reaction NAPROXEN 03/24/2015 2 - Rash PENICILLINS 08/29/2014 4 - Hives Date Reviewed: 10/09/2019 Reviewed by: Steffen Bishop Laundry Washer - Fully Assessed Reason for Visit: right shoulder pain [Other] Primary Visit Diagnosis:Chronic pain in right shoulder [M25. 511, G89.29] Other Visit Diagnosis:Cervicalgia [M54.2] Order(s):XR SHOULDER GENERAL 3V OR MORE AP/TRUE AP/OTHER RT [8372542] Order #: [id number] FUTURE CONSULT TO ORTHOPAEDICS [9026] Order #: [id number]: 1 FUT URE predniSONE (DELTASONE) 10 mg [...] No panel information on 2019-10-[address] [facility] (93525) cnpn on 2019-08-06 [facility] Telephone (INTMWS) Normal 08-06-2019 [facility] ROWENA JAQUEZ ([id number]) 1990 F [facility] Time Provider Department (02556) 08/06/19 BETO ANDERSEN ([facility]) INTMWS During your visit today, we recorded the following informati on about you: Beto Andersen APRN.CNP 08/06/2019 1:56 PM Signed Patient missed our appointment today at 140. Please le t her know that I have ordered follow up laboratory studies based on her recent ED visit. She may complete these in the next week, will update her with results once available. ANUJA Santana Ma 08/06/2019 2:17 PM Signed Patient notified. Allergies As of Date: 08/06/2019 Noted Allergy Reaction NAPROXEN 03/24/2015 2 - Rash PENICILLINS 08/29/2014 4 - Hives Date Reviewed: 07/23/2019 Reviewed by: Freddy Nielson (Insurance Healthcare Representative [facility]) Debbie - Fully Assessed Reason for Visit: Appointment [186] Primary Visit Diagnosis:Hypokalemia [E87.6] Other Visit Diagnosis:Abnormal RBC [R71.8] Order(s):BASIC METABOLIC PNL [SQBMP] Order #: [id number] FUT URE CBC + DIFF [SQCBCDIF] Order #: [id number] FUTURE Prescriptions as of 08/06/2019 Sig: MELOXICAM [...] Abs Baso 0.04 <0.11 k/uL Normal 08-06-2019 [facility] (50988) Comment: Performed By: #### CBCDIF B MP #### [facility] [address] [place], [place] [address] Abs Navajo 1.14 <0.87 k/uL High 08-06-2019 [facility] (46975) Comment: Performed By: #### CBCDIF B MP #### [facility] [address] [place], [place] [address] Abs Neut 2.67 1.45-7.50 k/uL Normal 08-06-2019 [facility] (84861) Comment: Performed By: #### CBCSAMUEL B MP #### [facility] [address] [place] [address] Absolute nRBC <0.01 <0.01 Normal 08-06-2019 [facility] (53369) Comment: Performed By: #### CBCSAMUEL B MP #### [facility] [address] [place] [address] Basophils/100 WBC (Bld) 0.7 % Normal 2019 [facility] (91452) Comment: Performed By: #### CBCSAMUEL B MP #### [facility] [address] [place] [address] DTYPE Auto Diff Normal 08-06-2019 [facility] (29737) Comment: Performed By: #### CBCSAMUEL B MP #### [facility] [address] [place] [address] Eosinophils (Bld) [#/Vol] 0.11 <0.46 k/uL Normal 07-21 [facility] (90415) Comment: Performed By: #### CBCSAMUEL B MP #### [facility] [address] [place] [address] Eosinophils/100 WBC (Bld) 1.8 % Normal 07-21 [facility] (98238) Comment: Performed By: #### CBCLUCILAF B MP #### [facility] [address] [place] [address] Erythrocyte distribution 12.6 11.5-15.0 % Normal 08-[address] [facility] width (RBC) [Ratio] [place] (36902) Comment: Performed By: #### CBCLUCILAF B MP #### [facility] [address] [place] [address] Hematocrit (Bld) [Volume 38.3 36.0-46.0 % Normal 08-05 [facility] (84013) Comment: Performed By: #### Joe LOPEZ MP #### [facility] [address] [place], [place] [address] Hemoglobin (Bld) 13.2 11.5-15.5 g/dL Normal 08-06-2019 [facility] [Mass/Vol] [place] (10002) Comment: Performed By: #### Joe LOPEZ MP #### [facility] [address] [place], [place] [address] Lymphocytes (Bld) [#/Vol] 2.05 1.00-4.00 k/uL Normal 07-21 [facility] (35539) Comment: Performed By: #### Joe LOPEZ MP #### [facility] [address] [place], [place] [address] Lymphocytes/100 WBC (Bld) 34.1 % Normal 07-21 [facility] (39065) Comment: Performed By: #### Joe LOPEZ MP #### [place] [address] [place], [place] [address] MCH (RBC) [Entitic mass] 31.5 26.0-34.0 pG Normal 08-05 [facility] (06411) Comment: Performed By: #### CBCJoe BAKER MP #### [facility] [address] [place], [place] [address] MCHC (RBC) [Mass/Vol] 34.5 30.5-36.0 g/dL Normal 08-06-19 [facility] (63458) Comment: Performed By: #### CBCJoe BAKER MP #### [facility] [address] [place], [place] [address] MCV (RBC) [Entitic vol] 91.4 80.0-100.0 fL Normal 08-05 [facility] (80768) Comment: Performed By: #### CBCSAMUEL B MP #### [facility] [address] [place], [place] [address] Monocytes/100 WBC (Bld) 18.9 % Normal 2019 [facility] (22935) Comment: Performed By: #### CBCLUCILAF B MP #### [facility] [place] [address] Neutrophils/100 WBC (Bld) 44.5 % Normal 07-21 [facility] (79511) Comment: Performed By: #### CBCSAMUEL B MP #### [address] [address] NRBCs 0.0 0 /100 WBC Normal 08-06-2019 [facility] (34766) Comment: Performed By: #### CBCSAMUEL B MP #### [place] [address] [place], [place] [address] Platelet mean volume 10.2 9.0-12.7 fL Normal [address] [facility] (Bld) [Entitic vol] [place] (48314) Comment: Performed By: #### CBCSAMUEL B MP #### [place] [address] [place], [place] [address] Platelets (Bld) [#/Vol] 317 150-400 k/uL Normal 2019 [facility] (08960) Comment: Performed By: #### CBCSAMUEL B MP #### [facility] [address] [place], [place] [address] RBC (Bld) [#/Vol] 4.19 3.90-5.20 m/uL Normal 08-06-[address] [facility] (97861) Comment: Performed By: #### CBCLUCILAF B MP #### [facility] [address] [place], [place] [address] WBC (Bld) [#/Vol] 6.02 3.70-11.00 k/uL Normal 08-06-2019 [facility] (96888) Comment: Performed By: #### Joe LOPEZ MP #### [facility] [address] [place], [place] [address] basic metabolic panl on 2019-08-06 Anion gap [Moles/Vol] 16 9-18 mmol/L Normal 08-06-19 [facility] (41607) Comment: Performed By: #### Joe LOPEZ MP #### [facility] [address] [place], [place] [address] Calcium [Mass/Vol] 9.6 8.5-10.2 mg/dL Normal 08-06-2019 [facility] (38541) Comment: Performed By: #### Joe LOPEZ MP #### [facility] [address] [place], [place] [address] Chloride [Moles/Vol] 103 97-105 mmol/L Normal 0 [facility] (88695) Comment: Performed By: #### Joe LOPEZ MP #### [facility] [address] [place], [place] [address] CO2 [Moles/Vol] 20 22-30 mmol/L Low 08-06-2019 [facility] (28885) Comment: Performed By: #### Joe LOPEZ MP #### [facility] [address] [place], [place] [address] Creatinine [Mass/Vol] 0.82 0.58-0.96 mg/dL Normal 08-06-19 [facility] (11033) Comment: Performed By: #### Joe LOPEZ MP #### [facility] [address] [place], [place] [address] eGFR- Amer. >60 Normal 08-06-2019 [facility] (83778) Comment: Performed By: #### Joe LOPEZ MP #### [facility] [address] [place] [address] GFR/1.73 sq M predicted >60 mL/min/{1.73_m2} Normal 08-06-[address] [facility] among non-blacks MDRD [place] (69518) (S/P/Bld) [Vol rate/Area] Comment: Result Comment: eGFR [...] Performed By: #### Joe LOPEZ MP #### [facility] [address] [place] [id number] Glucose [Mass/Vol] 79 74-99 mg/dL Normal 08-06-2019 [facility] (63446) Comment: Result Comment: The [place] Diabetes Association (ADA) provides guidance for cutoff [...] for diagnosis of diabetes. Reference: Standards of [facility] Care in Diabetes 2016, [place] Diabetes Association. Diabetes Care. 2016.39(Suppl 1). Performed By: #### Joe LOPEZ MP #### [facility] [address] [place], [place] [address] Potassium [Moles/Vol] 3.4 3.7-5.1 mmol/L Low 08-06-19 20 [facility] (89772) Comment: Performed By: #### Joe LOPEZ MP #### [facility] [address] [place], [place] [address] Sodium [Moles/Vol] 139 136-144 mmol/L Normal 08-06-2019 [facility] (56131) Comment: Performed By: #### Joe LOPEZ MP #### [facility] [address] [place], [place] [address] Urea nitrogen [Mass/Vol] 19 7-21 mg/dL Normal 08-05 [facility] (70086) Comment: Performed By: #### Joe LOPEZ MP #### [facility] [address] [place], [place] [address] progress on 2019-07 PROGRESS HNO ID: [id number] Normal 07-23-[address] [facility] Author: Freddy Nielson (Insurance Healthcare Representative [employer]) Debbie [place] (56027) Service: ? Author Type: Nurse Practitioner Type: Progress Notes Filed: 07/23/2019 2:28 PM Note Text: Subjective HPI Rowena Jaquez is a 28 year old female who presents wit h a rash for the last 4 days. The rash is scattered across the body over the arms, abdomen, and legs. She recently had an kiln packer in her h ome who found evidence [...] 2019-07-23 CNOV Office Visit (UCWSTR) Normal 07-23-19 [place] [facility] ROWENA JAQUEZ ([id number]) 1990 F [place] Date Time Provider Department (35319) 07/23/19 1:15 PM FREDDY LEWIS (SCOTT, BUSINESS DEPARTMENT CHAIR)WSTR During your visit today, we recorded the following informati on about you: Temperature Pulse Respiration Blood pressure 99 degrees 84/minute 16/minute 122/74 Weight 75.3 kg Freddy Lewis APRN.BUSINESS DEPARTMENT CHAIR 07/23/2019 2:28 PM Signed Subjective HPI Rowena Jaquez is a 28 year old female who presen ts with a rash for the last 4 days. The rash is scattered acros s the body over the arms, abdomen, and legs. She recently had an kiln packer in her home who found evidence of [...] and symptoms. All questions addressed. 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 Shanthi [...] No Muscular Dystrophy No Cystic Fibrosis No Basile's Chorea No Mental Retardation/Autism No Maternal Metabolic [...] - for . Invalid Interpretation 02-25-2017 - [place] [facility] import Code 02-25-2017 Ca re (87756) when terms are not otherwise specified lab report: ct/ng wch by pcr on 2017-02-15 Chlamydia Negative Negative Invalid 02-15-2017 - [place] trachomatis DNA Interpretation 7 [facility] [Presence] in Code (85662 ) Urine by Probe and target amplification method Neisseria Negative Negative Invalid 02-15-2017 - [place] gonorrhoeae Interpretation 02-15-2017 [facility] presence Code (07573) office visit on 08-25-18 Documentation of Done Invalid 08-08-2016 - [place] current medications Interpretation Code 08-08-2016 Infectious (procedure) Disease (87540) Protein mass conc Done 08-08-2016 - [place] 08-08-2016 Infectiou s Disease (4 3792) Tobacco smoking Never Invalid 08-08-2016 - [place] status NHIS Interpretation Code 08-09-19 17 Infectious Disease (4 4691) Tobacco smoking Never smoker Invalid 08-08-2016 - [place] status VAIS Interpretation Code 08-09-19 17 Infectious Disease (4 4691) Tobacco use [facility] Never smoker Invalid 08-08-2016 - [place] Interpretation Code 08-08-2016 Infectious Disease (4 4691) microbiology: culture, deep wound on 2016-08-04 CUDW . 08-04-2016 - [place] Infectious 08-04-2016 Disease ( 70247) CUDW . 08-04-2016 - [place] Infectious 08-04-2016 Disease ( 40560) GE use only - for . Invalid Interpretation 08-04-2016 Infectious [employer] import Code 08-04-2016 Di sease (52839) when terms are not otherwise specified microbiology: culture, blood (wb) on 2016-08-04 Bacteria BCNo growth Invalid 08-04-2016 - [place] identified Cx Nom in 5 days. Interpretation Code 0 08-04-2016 Infectious (Bld) Disease (4 4691) microbiology: culture, wound on 2016-08-03 CUW Vancomycin $ 1 S 08-03-2016 - [place] 08-03-2016 Infectiou s Disease (4 4691) wound culture Vancomycin $ 1 S Invalid [address] [place] [address] Interpretation Code 08-03-2016 [facility] (91669) lab report: cbc-complete blood cnt no di ff on 2016-08-03 Erythrocyte 16.3 11.6-14.6 % High 08-03-2016 - [place] distribution 08-03-2016 Infect ious width Ratio Disease (RBC) (38960) Erythrocyte 52.0 35.1-43.9 fL High 08-03-2016 - [place] distribution 08-03-2016 Infect ious width Ratio Disease (RBC) (55820) Erythrocytes 3.23 4.2-5.4 10*6/u Low 08-03-[address] [facility] [facility] (RBC) L 08-03-2016 Infectiou s Disease (28846) Hematocrit (HCT) 29.2 37-47 % Low 08-03-2016 - [place] 08-03-2016 Infectiou s Disease (05909) Hematocrit 29.2 37-47 % Low 08-03-2016 - [place] Volume Fraction 08-03-2016 Inf ectious (Bld) Disease (27880) Hemoglobin mass 9.0 12.0-15.0 g/dL Low 08-03-2016 - [place] conc (Bld) 08-03-2016 Infectio us Disease (51479) MCH 27.9 27.0-32.0 pg Invalid 08-03-2016 - [place] Interpretation 08-03-2016 Infe ctious Code Disease (75500) MCH Entitic mass 27.9 27.0-32.0 pg 08-03-2016 - [place] (RBC) 08-03-2016 Infectiou s Disease (09213) MCHC 30.8 32-36 Low 08-03-2016 - [place] G/GL 08-03-2016 Infectiou s Disease (34075) MCHC mass conc 30.8 32-36 Low 08-03-2016 - [place] (RBC) G/GL 08-03-2016 Infectiou s Disease (88351) MCV 90.4 81-99 fL Invalid 08-03-2016 - [place] Interpretation 08-03-2016 Infe ctious Code Disease (84853) MCV Entitic 90.4 81-99 fL 08-03-2016 - [place] volume (RBC) 08-03-2016 Infect ious Disease (68837) Platelet mean 8.9 6.2-12.0 fL 08-03-2016 - [place] volume Entitic 08-03-2016 Infe ctious volume (Bld) Disease (33329) Platelets 709 150-450 10*3/m High 08-03-2016 - [place] m3 08-03-2016 Infectiou s Disease (85101) Platelets #/vol 709 150-450 10*3/m High 08-03-2016 - [place] (Bld) m3 08-03-2016 Infectiou s Disease (37924) PMV by 8.9 6.2-12.0 fL Invalid 08-03-2016 - [place] Blas-Donna Interpretation 08-03-2016 Inf ectious Code Disease (18329) RBC #/vol (Bld) 3.23 4.2-5.4 10*6/u Low 08-03-2016 - [place] L 08-03-2016 Infectiou s Disease (12366) RDW-CA 16.3 11.6-14.6 % High 08-03-2016 - [place] 08-03-2016 Infectiou s Disease (31971) red blood cell 52.0 35.1-43.9 fL High 08-03-2016 - [place] distribution 08-03-2016 Infect ious width, size Disease density (43391) WBC #/vol (Bld) 10.7 4.4-11.0 10*9/L 08-03-2016 - [place] 08-03-2016 Infectiou s Disease (05423) WBC (Leukocytes) 10.7 4.4-11.0 10*9/L Invalid 08-03-2016 - [place] Interpretation 08-03-2016 Infe ctious Code Disease (19738) lab report: basic metabolic profile (bmp ) on 2016-08-03 Anion gap 8 5-15 mmol/L Invalid 08-03-2016 - [place] Interpretation 08-03-2016 Infe ctious Code Disease (03797) Anion gap molar 8 5-15 mmol/L 08-03-2016 - [place] conc 08-03-2016 Infectiou s Disease (03217) Calcium mass 8.5 8.5-10.1 mg/dL 08-03-2016 [facility] conc 08-03-2016 Infectiou s Disease (41611) Chloride molar 99 98-107 mmol/L 08-03-2016 - [place] conc 08-03-2016 Infectiou s Disease (76176) CO2 32.0 21.0-32. mmol/L Invalid 08-03-2016 - [place] 0 Interpretation 08-03-2016 Infe ctious Code Disease (67895) CO2 ppres 32.0 21.0-32. mmol/L 08-03-2016 - [place] (BldV) 0 08-03-2016 Infectiou s Disease (23276) Creatinine mass 0.67 0.55-1.0 mg/dL 08-03-2016 - [place] conc 2 08-03-2016 Infectiou s Disease (45547) eGFR 136 >60 mL/min Invalid 08-03-2016 - [place] (non-black) Interpretation 08-03-2016 In fectious Code Disease (10877) EST GFR - AA 136 >60 mL/min 08-03-2016 - [facility] 08-03-2016 Infectiou s Disease (41779) GFR/1.73 sq M 112 >60 mL/min 08-03-2016 - [place] predicted among 08-03-2016 Inf ectious non-blacks MDRD Dise ase vol rate/area (53939 ) (S/P/Bld) Glucose 83 70-110 mg/dL Invalid 08-03-2016 - [place] Interpretation 08-03-2016 Infe ctious Code Disease (19913) Glucose mass 83 70-110 mg/dL 08-03-2016 - [facility] conc 08-03-2016 Infectiou s Disease (85882) Potassium molar 3.6 3.5-5.1 mmol/L 08-03-2016 - [place] conc 08-03-2016 Infectiou s Disease (35347) Sodium molar 139 136-145 mmol/L 08-03-2016 - [facility] conc 08-03-2016 Infectiou s Disease (74306) Urea nitrogen 9 7-18 mg/dL 08-03-2016 - [place] mass conc 08-03-2016 Infectiou s Disease (19641) Urea 13.5 10-20 08-03-2016 - [place] nitrogen/Creati RATIO 08-03-2016 Inf ectious nine mass ratio Dise ase (97581) replaced document: cbc w/diff, automated on 2016-08-02 CELLS COUNTED 100 MANUAL 08-02-2016 - [place] DIFF 08-02-2016 Infectiou s Disease (63761) Eosinophils/100 3 0-5 % Invalid 08-02-2016 - [place] leukocytes Interpretation 08-02-2016 Inf ectious Code Disease (67439) Eosinophils/100 3 0-5 % 08-02-2016 - [place] WBC (Bld) 08-02-2016 Infectiou s Disease (81451) Lymphocytes/100 46 19-41 % High 08-02-2016 - [place] leukocytes 08-02-2016 Infectio us Disease (80500) Lymphocytes/100 46 19-41 % High 08-02-2016 - [place] WBC (Bld) 08-02-2016 Infectiou s Disease (28175) Monocytes/100 6 0-10 % Invalid 08-02-2016 - [place] leukocytes Interpretation 08-02-2016 Inf ectious Code Disease (97836) Monocytes/100 WBC 6 0-10 % 08-02-2016 - [place] (Bld) 08-02-2016 Infectiou s Disease (82679) Platelets LM Ql MKD INC ADEQ 08-02-2016 - [place] (Bld) 08-02-2016 Infectiou s Disease (46506) promyelocyte 2 (?) 0-0 High 08-02-2016 - [facility] count, blood 08-02-2016 Infect ious Disease (93937) Promyelocytes 2 (?) 0-0 High 08-02-2016 - [place] #/vol (Bld) 08-02-2016 Infecti ous Disease (74391) RBC morphology NORM C+C NORM C AND 08-02-2016 - [place] finding Nom (Bld) C 08-02-2016 I nfectious Disease (67526) Segmented 43 47-70 % Low 08-02-2016 - [place] Neutrophils/100 08-02-2016 Inf ectious leukocytes Disease (07223) Segmented 43 47-70 % Low 08-02-2016 - [place] neutrophils/100 08-02-2016 Inf ectious WBC (Bld) Disease (98673) total cells 100 MANUAL Invalid 08-02-2016 - [place] counted, blood DIFF Interpretation 08-02-2016 Infectious Code Disease (32653) replaced document: (p) cbc w/diff, autom ated on 2016-08-02 Erythrocyte 16.6 11.6-14.6 % High 08-02-2016 - [place] distribution 08-02-2016 Infect ious width Ratio Disease (RBC) (87026) Erythrocyte 55.3 35.1-43.9 fL High 08-02-2016 - [place] distribution 08-02-2016 Infect ious width Ratio Disease (RBC) (31458) Erythrocytes 3.04 4.2-5.4 10*6/u Low 08-02-2016 - [facility] (RBC) L 08-02-2016 Infectiou s Disease (19935) Hematocrit (HCT) 27.4 37-47 % Low 08-02-2016 - [place] 08-02-2016 Infectiou s Disease (93508) Hematocrit 27.4 37-47 % Low 08-02-2016 - [place] Volume Fraction 08-02-2016 Inf ectious (Bld) Disease (51967) Hemoglobin mass 8.3 12.0-15.0 g/dL Low 08-02-2016 - [place] conc (Bld) 08-02-2016 Infectio us Disease (79564) MCHC 30.3 32-36 Low 08-02-2016 - [place] G/GL 08-02-2016 Infectiou s Disease (02836) MCHC mass conc 30.3 32-36 Low 08-02-2016 - [place] (RBC) G/GL 08-02-2016 Infectiou s Disease (99525) Platelets 650 150-450 10*3/m High 08-02-2016 - [place] m3 08-02-2016 Infectiou s Disease (05840) Platelets #/vol 650 150-450 10*3/m High 08-02-2016 - [place] (Bld) m3 08-02-2016 Infectiou s Disease (94053) RBC #/vol (Bld) 3.04 4.2-5.4 10*6/u Low 08-02-2016 - [place] L 08-02-2016 Infectiou s Disease (73380) RDW-CA 16.6 11.6-14.6 % High 08-02-2016 - [place] 08-02-2016 Infectiou s Disease (87133) red blood cell 55.3 35.1-43.9 fL High 08-02-2016 - [place] distribution 08-02-2016 Infect ious width, size Disease density (02658) WBC #/vol (Bld) 11.4 4.4-11.0 10*9/L High 08-02-2016 - [place] 08-02-2016 Infectiou s Disease (79213) WBC (Leukocytes) 11.4 4.4-11.0 10*9/L High 08-02-2016 - [place] 08-02-2016 Infectiou s Disease (49941) MCH 27.3 27.0-32.0 pg Invalid 08-02-2016 - [place] Interpretation 08-02-2016 Infe ctious Code Disease (28681) MCH Entitic mass 27.3 27.0-32.0 pg 08-02-2016 - [place] (RBC) 08-02-2016 Infectiou s Disease (09082) MCV 90.1 81-99 fL Invalid 08-02-2016 - [place] Interpretation 08-02-2016 Infe ctious Code Disease (50668) MCV Entitic 90.1 81-99 fL 08-02-2016 - [place] volume (RBC) 08-02-2016 Infect ious Disease (16965) Platelet mean 8.6 6.2-12.0 fL 08-02-2016 - [place] volume Entitic 08-02-2016 Infe ctious volume (Bld) Disease (72295) PMV by 8.6 6.2-12.0 fL Invalid 08-02-2016 - [place] Interpretation 08-02-2016 Inf ectious Code Disease (80523) lab report: cbc w/diff, automated on 2016-08-02 Lymphocytes 5.24 X10 0.83-4.51 High 08-02-2016 - [place] 3/UL 08-02-2016 Infectiou s Disease (76465) Lymphocytes 5.24 X10 0.83-4.51 High 08-02-2016 - [place] #/vol (Bld) 3/UL 08-02-2016 Infecti ous Disease (64170) neutrophil 4.9 X10 2.0-7.7 Invalid 08-02-2016 - [place] count, blood 3/UL Interpretation Code 017 Infectious Disease (29244) Neutrophils 4.9 X10 2.0-7.7 08-02-2016 - [place] #/vol (Bld) 3/UL 08-02-2016 Infecti ous Disease (63041) Pathologist Cyto May foll 08-02-2016 - [place] stain ID Nom 08-02-2016 Infect ious (Cervical or Disease vaginal smear or (43 691) scraping) replaced document: cbc w/diff, automated on 2016-08-01 Band form 2 % 0-5 08-01-2016 - [place] Infectious neutrophils #/vol 08-01-2016 D isease (55178) (Bld) CELLS COUNTED 100 MANUAL DIFF 08-01-2016 - [place] Infectious 08-01-2016 Disease ( 07013) Lymphocytes/100 WBC 25 19-41 % 08-01-2016 - [place] Infectious (Bld) 08-01-2016 Disease ( 44192) Metamyelocytes/100 2 0-1 % High 08-01-2016 - [place] Infectious leukocytes 08-01-2016 Disease (91273) Metamyelocytes/100 2 0-1 % High 08-01-2016 - [place] Infectious WBC (Bld) 08-01-2016 Disease ( 33696) Monocytes/100 WBC 7 0-10 % 08-01-2016 - [place] Infectious (Bld) 08-01-2016 Disease ( 11195) Platelets LM Ql MOD INC ADEQ 08-01-2016 - [place] Infectious (Bld) 08-01-2016 Disease ( 43578) RBC morphology NORM C+C NORM C AND C 08-01-2016 - [place] Infectious finding Nom (Bld) 08-01-2016 D isease (78435) Segmented 64 47-70 % 08-01-2016 - [place] Infectious neutrophils/100 WBC 08-01-2016 Disease (46140) (Bld) replaced document: (p) culture, wound on 2016-08-01 CUW Wound CultureNo 08-01-2016 - [place] growth-Final to 08-01-2016 Inf ectious follow Disease (4 5748) wound culture Wound CultureNo Invalid 08-01-2016 - [place] growth-Final to Interpretation Code 07-21 Infectious follow Disease (4 4072) replaced document: (p) culture, deep wou nd on 2016-08-01 CUDW Cult, 08-01-2016 - [place] AnaerobicChecking for 08-02-19 17 Infectious anaerobes, further D isease studies to follow. ( 10908) GE use only - Cult, Invalid 08-01-2016 - [place] for [employer] for Interpretation 08-01-2016 Infectious import when anaerobes, further Code Disease terms are not studies to follow. (56957) otherwise specified replaced document: (p) culture, blood (w b) on 2016-08-01 Bacteria identified BCNo growth in 48 - [place] Infectious Cx Nom (Bld) hours. 08-01-2016 Diseas e (31401) replaced document: (p) cbc w/diff, autom ated on 2016-08-01 Erythrocyte 53.8 35.1-43.9 fL High 08-01-2016 - [place] distribution width 08-01-2016 Infectious Ratio (RBC) Disease (07352) Erythrocyte 16.4 11.6-14.6 % High 08-01-2016 - [place] distribution width 08-01-2016 Infectious Ratio (RBC) Disease (02089) Hematocrit Volume 24.6 37-47 % Low 08-01-2016 - [place] Fraction (Bld) 08-01-2016 Infe ctious Disease (4 [...] Entitic volume 88.5 81-99 fL 08-01-2016 - [place] (RBC) 08-01-2016 Infectiou s Disease (4 4691) Platelet mean 8.9 6.2-12.0 fL 08-01-2016 - [place] volume Entitic 08-01-2016 Infe ctious volume (Bld) Disease (93534) Platelets #/vol 538 150-450 10*3/mm3 High 08-01-2016 [...] Lymphocytes #/vol 3.55 X10 0.83-4.51 08-01-2016 - [place] Infectious (Bld) 3/UL 08-01-2016 Disease ( 86016) Neutrophils #/vol 9.4 X10 3/UL 2.0-7.7 High 7 - [place] Infectious (Bld) 08-01-2016 Disease ( 52228) Pathologist Cyto May foll 08-01-2016 - [place] Infectious stain ID Nom 08-01-2016 Diseas e (39586) (Cervical or vaginal smear or scraping) lab report: vancomycin, trough level on 2016-07-31 Vancomycin trough mass 8.1 5.0-15.0 ug/mL 017 - [place] Infectious conc 07-31-2016 Disease ( 71881) lab report: cbc w/diff, automated on 2016-07-31 Basophils/100 0.1 0-1 % Invalid 07-31-2016 - [place] leukocytes Interpretation Code 7 [facility] (57399) Basophils/100 WBC 0.1 0-1 % 07-31-2016 - [place] (Bld) 07-31-2016 Infectiou s Disease (4 4691) Eosinophils/100 0.0 0-5 % Invalid 07-31-2016 - [place] leukocytes Interpretation Code 7 [facility] (13206) Eosinophils/100 WBC 0.0 0-5 % 07-31-2016 - [place] (Bld) 07-31-2016 Infectiou s Disease (4 4691) Immature 0.600 0.0-0.9 % 07-31-2016 - [place] granulocytes #/vol 07-31-2016 Infectious (Bld) Disease (4 4691) immature 0.600 0.0-0.9 % Invalid 07-31-2016 - [place] granulocytes, Interpretation Code 2016 [facility] percentage of total (23338) cells, blood Neutrophils/100 86.6 47-70 % High 07-31-2016 - [place] leukocytes 07-31-2016 [facility] (79290) Neutrophils/100 WBC 86.6 47-70 % High 07-31-2016 - [place] (Bld) 07-31-2016 Infectiou s Disease (4 4691) lab report: basic metabolic profile (bmp ) on 2016-07-31 Creatinine 158.63 mL/min Invalid Interpretation 2016 - [place] Code 07-31-2016 [facility] (18629) replaced document: cbc w/diff, automated on 2016-07-30 Anisocytosis 1+ Invalid Interpretation 06- 0-2016 - [place] Infectious presence Code 07-30-2016 Disease ( 18496) Anisocytosis Ql 1+ 07-30-2016 - [place] Infectious (Bld) 07-30-2016 Disease ( 86019) Hypochromia presence 1+ Invalid Interpretat ion 07-30-2016 - [place] Infectious Code 07-30-2016 Disease ( 24795) Hypochromia Ql (Bld) 1+ 7 - [place] Infectious 07-30-2016 Disease ( 15117) replaced document: (p) cbc w/diff, autom ated [...] Code 2016 Infectious percentage of Diseas e (41764) total cells, blood Neutrophils/100 78.9 47-70 % High 07-30-2016 - [place] leukocytes 07-30-2016 Infectio us Disease (4 4691) lab report: prothrombin time w/inr on 2016-07-30 Coagulation 16.0 11.7-14.9 High 07-30-2016 - [place] tissue factor SECONDS 07-30-2016 Infec tious induced in Disease platelet poor (69263 ) plasma INR Coag 1.3 {INR 07-30-2016 - [place] RelTime (PPP) } 07-30-2016 Infec tious Disease (03768) INR in blood by 1.3 {INR Invalid 07-30-2016 - [place] coagulation } Interpretation 07-30-2016 In fectious Code Disease (22023) lab report: partial thromboplast time on 2016-07-30 aPTT 42.8 24.1-36.2 s High 07-30-2016 - 07-30- 017 [place] Infectious Disease (64155) lab report: lactic acid on 2016-07-30 Lactate 1.4 0.4-2.0 mmol/L Invalid Interpretation 017 - [place] Infectious Code 07-30-2016 Disease ( 16980) lab report: comprehensive metabolic prof il on 2016-07-30 Alanine 23 12-78 U/L Invalid 07-30-2016 - [place] aminotransferase Interpretation 07-31-19 17 Infectious (ALT) Code Disease (50781) Albumin 1.7 3.4-5.0 g/dL Low 07-30-2016 - [place] 07-30-2016 Infectiou s Disease (77896) Albumin/Globulin 0.4 0.9-2.4 {ratio Low 07-30-2016 - [place] Ratio RATIO } 07-30-2016 Infectiou s Disease (28527) Alkaline phosphatase 122 45-117 U/L High 7 - [place] (ALP) 07-30-2016 Infectiou s Disease (34785) ALP enzyme act/vol 122 45-117 U/L High 07-30-2016 - [place] (Bld) 07-30-2016 Infectiou s Disease (07350) Aspartate 27 15-37 U/L Invalid 07-30-2016 - [place] aminotransferase Interpretation 07-31-19 17 Infectious (AST) Code Disease (19154) Bilirubin (total) 0.40 0.20-1.0 mg/dL Invalid 07-30-2016 - [place] 0 Interpretation 07-30-2016 Infe ctious Code Disease (75347) Globulin 4.3 2.3-3.5 g/dL High 07-30-2016 - [place] 07-30-2016 Infectiou s Disease (25060) Globulin mass conc 4.3 2.3-3.5 g/dL High 07-30-2016 - [place] (S) 07-30-2016 Infectiou s Disease (37377) Protein 6.0 6.4-8.2 g/dL Low 07-30-2016 - [place] 07-30-2016 Infectiou s Disease (76122) lab report: basic metabolic profile (bmp ) on 2016-07-30 Creatinine 115.83 mL/min Invalid Interpretation 2016 - [place] Infectious Code 07-30-2016 Disease ( 25681) Vital Signs Vital Sign Description Value / Unit Date Location The following section is limited to 5 en tries per type and includes entries from the following time range: [id number] - [id number] 9. BMI (Body Mass Index) 30.55 kg/m2 08-08-2016 - 08-08-2016 [place] Infectious Disease (89438) Body surface area Derived 158.63 mL/min 07-31-2016 - 7 [place] Infectious from formula Disease (53262) Body Temperature 97.7 [degF] 08-08-2016 - 08-08-2016 [place] Infectious Disease (15259) BP Diastolic 75 mm[Hg] 08-08-2016 - 08-08-2016 [place] Infectious Disease (28476) BP Systolic 112 mm[Hg] 08-08-2016 - 08-08-2016 [place] Infect[facility] Disease (89964) Height 162.56 cm 08-08-2016 - 08-08-2016 [place] Infectious Disease (02484) Pulse (Heart Rate) 77 /min 08-08-2016 - 08-08-2016 [place] Infect[place] Disease (15195) Pulse Oximetry 99 % 08-08-2016 - 08-08-2016 [place] Infectious Disease (23990) Respiratory Rate 18 /min 08-08-2016 - 08-08-2016 [place] Infect[facility] Disease (12400) Weight 80.74 kg 08-08-2016 - 08-08-2016 [place] Infectious Disease (33705) Encounters Date Type Reason Provider Location 08-21-2017 Ambulatory JOSE EDWARDS Sie[facility] ([phone]) JOSE FRANCISCO STOLL 07-10-2017 - Ambulatory SHILOH Peters [facility] 07-10-2017 [facility] GONZALES STOLL 06-08-2017 - Ambulatory OJSE Peters Child johan's 06-08-2017 [facility] ([phone]) JOSE FRANCISCO STOLL 10-09-2019 - Patient encounter Chronic pain of Aditi ([employer]) Older Xr I nternal Medicine 10-09-2019 procedure right upper limb [facility] [place] Comment: Chronic pain in right should er (Primary Dx); Cervicalgia Radiology XR 10-29-2019 - 10-29-2019 Telephone encounter Gonzales cárdenas [facility] [place] Comment: if needs COVID testing done covid question 10-11-2019 - 10-11-2019 Telephone encounter Gonzales cárdenas [facility] [place] Comment: Results Procedures Procedure Name Date Provider Location Radex shoulder complete minimum 2 10-09-2019 Aditi ([employer]) Chandler liliya [facility] (79734) views Plan of Treatment Plan Description Date Location DTAP,TDAP,TD (9 - Td) DTAP,TDAP,TD (9 - Td) 05-12-2026 - [facility] 05-12-2026 (57459) PAP TESTING PAP TESTING 11-24-2022 - [facility] 11-24-2022 (20519) INFLUENZA (#1) INFLUENZA (#1) 2019 - [facility] 10-22-2019 (97450) HPV TESTING HPV TESTING 2018 - [facility] 2018 (96020) Appointment no information 08-08-2016 - [place] Infectio us 08-08-2016 Disease (44646) Immunizations Vaccine Notes Status Date Location DTaP (Age<7) diphtheria, tetanus (completed) 11-23-1993 - [facility] toxoids and acellular 11-23-1993 (41459 ) pertussis vaccine DTaP (Age<7) diphtheria, tetanus (completed) 05-22-1990 - [facility] toxoids and acellular 05-22-1990 (75376 ) pertussis vaccine DTaP (Age<7) diphtheria, tetanus (completed) 06-16-1989 - [facility] toxoids and acellular 06-16-1989 (74735 ) pertussis vaccine DTaP (Age<7) diphtheria, tetanus (completed) 05-16-1989 - [facility] toxoids and acellular 05-16-1989 (41589 ) pertussis vaccine DTaP (Age<7) diphtheria, tetanus (completed) 1988 - [facility] toxoids and acellular 1988 (11138 ) pertussis vaccine Hib - 4 Dose Schedule haemophilus (completed) 02-01-1990 - [facility] influenzae type b 02-01-1990 (43453) vaccine, HbOC conjugate Influenza Seasonal influenza, (completed) 11-28-2014 - [facility] Inj Quadrivalent Age injectable, 11-28-2014 (20904) 3+ quadrivalent, contains preservative MMR measles, mumps and (completed) 06-11-2001 - [facility] rubella virus vaccine 06-11-2001 (27792 ) MMR measles, mumps and (completed) 02-01-1990 - [facility] rubella virus vaccine 02-01-1990 (91118 ) IPV poliovirus vaccine, (completed) 11-23-1993 - [facility] inactivated 11-23-1993 (31340) IPV poliovirus vaccine, (completed) 05-22-1990 - [facility] inactivated 05-22-1990 (69809) IPV poliovirus vaccine, (completed) 05-16-1989 - [facility] inactivated 05-16-1989 (73755) IPV poliovirus vaccine, (completed) 1988 - [facility] inactivated 1988 (80531) Rho D Immune Globulin RHO(D) immune (completed) 04-27-2016 - [facility] Inj globulin- IV or IM 04-27-2016 (51121) Rho D Immune Globulin RHO(D) immune (completed) 02-24-2015 - [facility] Inj globulin- IV or IM 02-24-2015 (13730) Tdap (Age 7+) tetanus toxoid, (completed) 05-12-2016 - [facility] linic reduced diphtheria 05-12-2016 (76234) toxoid, and acellular pertussis vaccine, adsorbed Tdap (Age 7+) tetanus toxoid, (completed) 04-27-2016 - [facility] linic reduced diphtheria 04-27-2016 (33262) toxoid, and acellular pertussis vaccine, adsorbed Tdap (Age 7+) tetanus toxoid, (completed) 02-24-2015 - [facility] linic reduced diphtheria 02-24-2015 (59759) toxoid, and acellular pertussis vaccine, adsorbed Payers Payer Name [facility] Number [facility] [id number] [facility] ([id number]) [facility] MEDICA[facility] [id number] [facility] (44 195) The following information is from the original human readable contentNo Payer Records Found Social History Type Social History Date Location Description Tobacco smoking Former smoker 10-09-2019 - [facility] status NHIS 10-09-2019 (75618) History of tobacco Current smoker 05-21-2014 [facility] karlee use (76843) Tobacco use and Never used 10-09-2019 - [facility] exposure 10-09-2019 (34606) Alcohol intake Current drinker of 10-09-2019 [facility] karlee alcohol (finding) 10-09-2019 (46443) Tobacco Comment vaps while at work 11-11-2016 - [facility] karlee 11-11-2016 (40118) Alcohol Comment occasionally 04-18-2018 - [facility] 04-18-2018 (65563) Sex Assigned At Not on file [facility] (58562) Exposure to Not sure [facility] SARS-CoV-2 (event) (73830) The following information is from the original [...] TO ORTHOPAEDICS NEW PATIENT VISIT LEVEL 5 ([employer]) [address] [place] [address] History of Past Illness Problem Noted Date Resolved Date PUPP (pruritic urticarial papules and plaques of ) 05/24/2016 08/25/2016 Short interval between pregnancies affecting in 08/25/2016 third trimester, antepartum Overview: 03/10/2016Patient delivered her previous child 03/2015. This is an unplanned .TKRN with care elsewhere, antepartum 7 08/25/2016 Overview: Girl on us 03/10/2016 Patient is transferring care here from [place]. She recently moved back here from there. Received records from [place] from Dr Delaney. Missing are the lab [...] She will discuss with Dr Johnson at [facility] tomorrrow.TKRN History of depression 03/10/2016 017 Overview: 03/10/2016Pt has a history of depression treated by Dr Cummins. She has been off medication since September . She believes she is doing well off medication. Discussed increased risks of depres valenitne during and and importance of reporting the [...] 03/10/2016 Patient is transferring care here from [place]. She recently moved back here from there. Received records from [place] from Dr Delaney. Missing are the lab [...] She will discuss with Dr Johnson at [facility] tomorrrow.TKRN History of depression 03/10/2016 017 Overview: [...] 03/10/2016 Patient is transferring care here from [place]. She recently moved back here from there. Received records from [place] from Dr Delaney. Missing are the lab [...] She will discuss with Dr Johnson at [facility] tomorrrow.TKRN History of depression 03/10/2016 017 Overview: [...] 03/10/2016 Patient is transferring care here from [place]. She recently moved back here from there. Received records from [place] from Dr Delaney. Missing are the lab [...] She will discuss with Dr Johnson at [facility] tomorrrow.TKRN History of depression 03/10/2016 017 Overview: [...] 0 08/25/2016 History of Present Illness LucyAditi ([facility]) - 10/09/2019 5:55 PM EDT CC: Patient [...] Patient agreeable to treatment plan. Aditi Ballard APRN.BUSINESS DEPARTMENT CHAIR documented in this encounterDaBere resendiz Tech (Rt) [...] BE BASED ON THE PRIMARY CLINICAL RECORDS. [facility] provides no warranty or guarantee of the accuracy or completeness of information in this document. UNRECOGNIZED CONTENT PROVIDED BELOW FOR UNRECOGNIZED SECTION INFORMATION SOURCE DATE CREATED AUTHOR AUTHOR'S ORGANIZATIO N 08/21/2017 [facility] pital DATE CREATED AUTHOR AUTHOR'S ORGANIZATIO N 10/31/2019 [facility] UNRECOGNIZED CONTENT PROVIDED BELOW FOR UNRECOGNIZED SECTION Source Comments In the event this information is protected by the Federal Confidentiality of Alcohol and Drug Abuse Patient Records regulations: The Federal rules restrict any use of the information to criminally investigate or prosecute any alcohol or drug abuse patient.[facility] [facility] the event this information is protected by the Federal Confidentiality of Alcohol and Drug Abuse Patient Records regulations: The Federal rules restrict any use of the information to criminally investigate or prosecute any alcohol or drug abuse patient.[facility]In the event this information is protected by the Federal Confidentiality of Alcohol and Drug Abuse Patient Records regulations: The Federal rules restrict any use of the information to criminally investigate or prosecute any alcohol or drug abuse patient.[facility] the event this information is protected by the Federal Confidentiality of Alcohol and Drug Abuse Patient Records regulations: The Federal rules restrict any use of the information to criminally investigate or prosecute any alcohol or drug abuse patient.[facility]In the event this information is protected by the Federal Confidentiality of Alcohol and Drug Abuse Patient Records regulations: The Federal rules restrict any use of the information to criminally investigate or prosecute any alcohol or drug abuse patient.[facility] UNRECOGNIZED CONTENT PROVIDED BELOW FOR UNRECOGNIZED [...] to check if fever. Patient was at [facility] out yesterday. Patient said she is on [...] has the option of getting tested at [facility] in [place], testing is free Aditi Ballard APRN.CNP elephone Encounter - Linda Burkett LPN - 10/29/2019 5:04 PM EDTPt called back at 5 pm. she wants to be tested for COVID and does not want an apt. She called [facility] and it was going to cost her $55.00 and she can't afford this. I offered her a virtual apt her tomorrow and declined. She said if she misses 1 more day of work she will loose her job. I then instructed her to go to ER. Linda Burkett LPN documented in this encounter
== END 2019-07-25 16:33 | disposition home or self-care (01) ==
PROVIDERS: Emergency Provider Emergency Medicine; PCP Internal Medicine
DX: R11.2 Nausea with vomiting, unspecified (principal); E87.6 Hypokalemia; R00.0 Tachycardia, unspecified; F17.200 Nicotine dependence, unspecified, uncomplicated
CPT/HCPCS: 80053; 83690; 85025; 96361; 96365; 96366; 96375; 99284; J7030; A4216; J2405

== ENCOUNTER 2019-09-03 17:05 | Emergency (ER) | payer MEDICAID, SELFPAY ==
[2019-09-03 17:06] VITALS: BP 143/71; PULSE 86; RESP 15; TEMP 37.2; O2SAT 98; BMI 26.2
--- NOTE | 2019-09-03 17:26 | ED.DCSUM_ITS ---
- ER Visit Summary Date of Service: 09/03/19 Chief Complaint: [Right arm and shoulder pain] History of Present Illness: The patient is a 28 F [presents to the emergency department with complaint of pain in her right arm and shoulder. Patient states that she is having paresthesias to the right arm intermittently for the last year or so. She has been seen by orthopedics Dr. Carson and has been seen by Dr. Fountain of neurology. Patient states that she has had x-rays of her arm and is had nerve conduction studies of her arm and no etiology has been found for her pain. She is not had MRIs of her head or neck. She denies any vision changes. She denies any trauma to the arm. She does work and does do a lot of repetitive motions with her arms. The pain in the right shoulder and upper back started about a month ago. Again patient has had no trauma. She has been using ibuprofen and at times does not get much relief.] Physical Examination: [HEENT-PERRLA, EOMI. Cranial nerves II through XII grossly intact. TMs clear. Mucous membranes moist. No adenopathy. No C-spine tenderness on palpation. Cardiovascular-regular rate and rhythm without murmur or ectopy Lungs-clear to auscultation, chest wall stable without crepitus or subcu emphysema Abdomen-normoactive bowel sounds, soft, nontender, no rebound or rigidity, no peritoneal signs. Extremities-intact ?4, normal range of motion, normal pulses. Right shoulder- patient has tenderness palpation over right trapezius. She has no tenderness over the glenohumeral joint. Significant range of motion of the glenohumeral joint. Patient is able to abduct 90 degrees against resistance. She is able to put her arm behind her back. She is able to resist medial and lateral stress without difficulty. She is neurovascularly intact. Normal sensation. Test Results: [None indicated] Emergency Department Course and Treatment: [] Treatment Plan: [Patient will be given a prescription for Flexeril. Patient will be given a prescription for a few Percocet for severe pain. She is referred back to orthopedics and her primary care physician for further work-up and evaluation of this chronic issue. If her symptoms persist she may need further imaging such as possibly MRI of her head or neck.] Disposition: [Discharged home in stable condition] Impression: [Right shoulder pain Paresthesias right arm-etiology uncertain] This note was generated with [employer] dictation software. It may contain incorrect words, spelling, and punctuation that were not noted in review of the chart prior to signing ED Disposition - Plan for ED Patient: Referrals: Lili Goddard MD [Primary Care Provider] -
--- NOTE | 2019-09-03 17:31 | ED.DEP ---
ED Disposition - Plan for ED Patient: Instructions: ED Shoulder Pain Uncertain Cause, ED Paraesthesias Prescriptions: cycloBENZAPRine HCl [Flexeril] 10 mg PO TID PRN #20 tab PRN Reason: Muscle Spasm Transmission Status: Pending to [facility] Oxycodone HCl/Acetaminophen [Percocet 5/325] 1 tab PO Q6H PRN PRN 3 Days #12 tab PRN Reason: Pain Transmission Status: Pending to [facility] Oxycodone HCl/Acetaminophen [Percocet 5/325] 1 tab PO Q6H PRN PRN 3 Days #12 tab PRN Reason: Pain Prescription Printed Referrals: Lili Goddard MD [Primary Care Provider] - 3-5 Days
== END 2019-09-03 17:49 | disposition home or self-care (01) ==
PROVIDERS: Emergency Provider Emergency Medicine; PCP Internal Medicine
DX: M25.511 Pain in right shoulder (principal); R20.2 Paresthesia of skin; F17.290 Nicotine dependence, other tobacco product, uncomplicated
CPT/HCPCS: 99282

== ENCOUNTER 2019-12-16 11:31 | Outpatient (RCR) | payer MEDICAID, SELFPAY ==
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
--- NOTE | 2019-12-27 14:44 | HP.PT.NRP ---
CEASAR JAQUEZ was seen in my office for initial evaluation on 12/16/19. The following Plan of Care was established for this patient: Initial Frequency: 2-3x /Week Initial Duration: 4-6 Weeks Patient/Client Instruction: Educate patient on: Condition, Plan of Care, Risk Factors, Benefits of Fitness Program For the Purpose of:: To improve self management Therapeutic Exercise to Include: Strength training, Postural training, Flexibilty training, Neuromotor development, Passive ROM, Active ROM, Scapular Strength/Stabilization For the Purpose of:: To decrease pain, To increase ROM, To improve muscle performance and motor function, To increase tolerance to activity/condition/position, To improve ability of physical actions for home/community/work/leisure Manual Therapy Techniques to Include: Passive ROM, Soft tissue mobilization For the Purpose of:: To decrease pain, To decrease swelling/inflammation, To increase ROM, To improve nutrient delivery to tissue TENS: Yes IF ES: Yes Cryotherapy (ice pack, ice massage): Yes Thermo therapy (hot pack): Yes Ultrasound (thermal/non thermal): Yes Intermittent cervical traction: Yes - TRY MANUAL FIRST For the Purpose of:: To decrease pain, To improve nutrient delivery to tissue This patient was last seen in our office . Pertinent comments regarding their Physical therapy will appear below: This patient has not returned to Physical Therapy and is appropriate to return to MD for further follow-up as needed. At this point I will be discontinuing this patient from physical therapy. I would be happy to see this patient again in the future if found appropriate by the physician. Thank you! Violetta Gamble, PT, Cert MDT
== END 2019-12-16 19:00 | disposition home or self-care (01) ==
LOC: PT 11:31
PROVIDERS: PCP Internal Medicine
DX: M54.12 Radiculopathy, cervical region (principal)
CPT/HCPCS: 97162

== ENCOUNTER 2019-12-26 08:15 | Emergency (ER) | payer MEDICAID, SELFPAY ==
[2019-12-26 08:16] VITALS: BP 110/75; PULSE 89; RESP 16; TEMP 36.4; O2SAT 100; BMI 22.8
--- NOTE | 2019-12-26 08:35 | ED.VISSUMM ---
- ER Visit Summary Date of Service: 12/26/19 Chief Complaint: [Right arm pain] History of Present Illness: The patient is a 29 F [presents to the emergency department complaint of right arm pain that started 2 years ago. Patient's had swelling of the right arm for a couple years and she has been seen for this by an email specialist. She has been going through physical therapy. Plan is to eventually obtain a MRI of her neck and possibly shoulder. She describes the pain as starting in her right upper back and shoulder and radiating down her arm. She complains of numbness and tingling intermittently in the hand. 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 Patient was having a lot of pain today so she attempted to call her surgeon who is in surgery and was instructed to come to the ER if she was that uncomfortable. Patient's been using tramadol for pain and also has had prednisone which does not seem to be helping. She denies any other injury.] Physical Examination: [HEENT-PERRLA, EOMI. Cranial nerves II through XII grossly intact. TMs clear. Mucous membranes moist. No adenopathy. Cardiovascular-regular rate and rhythm without murmur or ectopy Lungs-clear to auscultation, chest wall stable without crepitus or subcu emphysema Abdomen-normoactive bowel sounds, soft, nontender, no rebound or rigidity, no peritoneal signs. Extremities-intact ?4, normal range of motion, normal pulses, atraumatic. Right arm-patient does have tenderness over the right trapezius that seems to reproduce her pain. She has limited abduction at the shoulder secondary to pain. She has decreased sensation to the hand to light touch. Expect good range of motion flexion extension of all digits. 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 Patient will be given a prescription for 10 Percocet for severe pain.] Disposition: [Discharged home in stable condition] Impression: [Acute exacerbation of chronic right arm pain] This note was generated with [employer] software. It may contain incorrect words, spelling, and punctuation that were not noted in review of the chart prior to signing ED Disposition - Plan for ED Patient: Referrals: Lili Goddard MD [Primary Care Provider] -
--- NOTE | 2019-12-26 08:37 | ED.DEP ---
ED Disposition - Plan for ED Patient: Prescriptions: Oxycodone HCl/Acetaminophen [Percocet 5/325] 1 tab PO Q6H PRN PRN 3 Days #12 tab PRN Reason: Pain Prescription Printed Referrals: Lili Goddard MD [Primary Care Provider] - Additional Instructions: see your surgeon Reason for your arm pain is unclear, may need further imaging such as MRI
== END 2019-12-26 09:02 | disposition home or self-care (01) ==
PROVIDERS: Emergency Provider Emergency Medicine; PCP Internal Medicine
DX: M79.601 Pain in right arm (principal); G89.29 Other chronic pain; F17.290 Nicotine dependence, other tobacco product, uncomplicated
CPT/HCPCS: 99282

== ENCOUNTER 2020-01-15 14:15 | Emergency (ER) | payer MEDICAID, SELFPAY ==
[2020-01-15 14:17] VITALS: BP 132/88; PULSE 87; RESP 17; TEMP 36.4; O2SAT 100; BMI 23.3
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
[2020-01-15] MEDS: Ketorolac 60 MG/2 ML Vial IM (16:28)
[2020-01-15 17:26] VITALS: BP 119/79; PULSE 81; RESP 16; O2SAT 99
== END 2020-01-15 17:56 | disposition home or self-care (01) ==
PROVIDERS: Emergency Provider Emergency Medicine; PCP Internal Medicine
DX: S20.219A Contusion of unspecified front wall of thorax, initial encounter (principal); S30.1XXA Contusion of abdominal wall, initial encounter; S09.90XA Unspecified injury of head, initial encounter; Y04.2XXA Assault by strike against or bumped into by another person, initial encounter; Y93.89 Activity, other specified; Y92.009 Unspecified place in unspecified non-institutional (private) residence as the place of occurrence of the external cause; Y99.8 Other external cause status
CPT/HCPCS: 70450; 71250; 74176; 96372; 99283

== ENCOUNTER 2020-05-13 07:33 | Emergency (ER) | payer MEDICAID, SELFPAY ==
[2020-05-13 07:34] VITALS: BP 153/95; PULSE 125; RESP 14; TEMP 36.2; O2SAT 100; BMI 24.5
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
[2020-05-13] MEDS: Ketorolac 15 MG/ML Vial IM (08:04)
[2020-05-13 08:22] VITALS: PULSE 17
== END 2020-05-13 08:22 | disposition home or self-care (01) ==
PROVIDERS: Emergency Provider Emergency Medicine
DX: M25.511 Pain in right shoulder (principal)
CPT/HCPCS: 96372; 99282

== ENCOUNTER 2020-07-22 08:55 | Emergency (ER) | payer MEDICAID, SELFPAY ==
[2020-07-22 08:56] VITALS: BP 123/79; PULSE 89; RESP 16; TEMP 36.3; O2SAT 100; BMI 24.0
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
[2020-07-22 10:26] VITALS: RESP 16
== END 2020-07-22 10:37 | disposition home or self-care (01) ==
PROVIDERS: Emergency Provider Emergency Medicine; PCP Internal Medicine
DX: S83.92XA Sprain of unspecified site of left knee, initial encounter (principal); F17.290 Nicotine dependence, other tobacco product, uncomplicated; V28.4XXA Motorcycle driver injured in noncollision transport accident in traffic accident, initial encounter; Y93.55 Activity, bike riding; Y92.410 Unspecified street and highway as the place of occurrence of the external cause; Y99.8 Other external cause status
CPT/HCPCS: 73564; 99284

== ENCOUNTER → 2020-08-10 07:59 | Outpatient (CLI) | payer MEDICAID, SELFPAY ==
[2020-08-03 13:55] VITALS: BMI 24.0
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
== END ==
PROVIDERS: PCP Internal Medicine; Referring Provider Physician Assistant; Visit Provider Physician Assistant
DX: S89.92XA Unspecified injury of left lower leg, initial encounter (principal); M23.92 Unspecified internal derangement of left knee
CPT/HCPCS: 73721

== ENCOUNTER 2020-08-22 20:23 | Emergency (ER) | payer MEDICAID, SELFPAY ==
[2020-08-03 13:55] VITALS: BMI 24.0
[2020-08-22 20:25] VITALS: BP 132/76; PULSE 82; RESP 16; TEMP 36.9; O2SAT 99; BMI 31.1
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
--- NOTE | 2020-08-22 20:38 | EDS_ITS ---
HPI History of Present Illness HPI Narrative: Patient presents with right foot and ankle injury that occurred today. Patient states she was walking down some steps and missed the last 2 steps. Patient states she twisted her right ankle. Patient states she has been unable to bear weight since the injury. Patient denies any head injury or loss of consciousness. Patient states nothing makes her pain worse and nothing makes it better. Patient denies any paresthesias or weakness. Patient denies any other injuries. Chief Complaint: Lower Extremity Injury Onset/Context/Timing Onset: Today Context: Sudden Onset Timing: Continuous Quality of Pain: Sharp Location: Right ankle and foot Worsened by: Nothing Relieved by: Nothing Associated Symptoms Associated Symptoms: Negative for Parasthesia, Weakness and Loss of Funtion [facility] Medical History (Updated 08/28/20 @ 01:[address] Jack Simmons DO) Carpal tunnel syndrome of right wrist Depression PCOS (polycystic ovarian syndrome) Home Medications ibuprofen 800 mg PO Q8H PRN #20 tab 08/22/20 [Rx Last Taken Unknown] Allergy/AdvReac Type Severity Reaction Status Date / Time hydrocodone [From [place]] Allergy Hives Verified 08/22/20 20:27 naproxen Allergy Rash Verified 08/22/20 20:27 Penicillins Allergy Hives Verified 08/22/20 20:27 Family History Grandfather Diabetes Heart disease Surgical History delivery delivered removal of gallbladder Social History Smoking Status: Current every day smoker tobacco type: e-cigarettes alcohol intake: never substance use type: does not use caffeine: Yes what type of physical activity do you participate in: none seatbelt use: sometimes do you feel safe at home: Yes additional social history: Single ROS ROS ED Constitutional Constitutional ED: Denies chills or fever(s) Eyes Eyes: Denies blurry vision or change in vision ENT ENT ED: Denies rhinorrhea or sore throat Cardiovascular Cardiovascular: Denies chest pain or palpitations Respiratory/Chest Respiratory/Chest: Denies cough or dyspnea Gastrointestinal Gastrointestinal: Denies nausea or vomiting Genitourinary Genitourinary ED: Denies dysuria or hematuria Musculoskeletal Musculoskeletal: Denies back pain or neck pain Integumentary Denies abscess or rash Neurologic Neurologic: Denies headache(s) or weakness Allergic/Immunologic Allergic/Immunologic ED: Denies mouth swelling or urticaria EXAM Physical Exam Const Vital Signs: 08/22/20 20:25 Temperature 98.5 F Temperature Source Oral Pulse Rate 82 Respiratory Rate 16 Blood Pressure 132/76 H Blood Pressure Mean 94 Pulse Ox 99 Oxygen Delivery Method Room Air Positive well nourished and well developed General Appearance ED: well developed HEENT normocephalic and atraumatic Neck full ROM and supple Extremity Extremity Narrative: There is tenderness and edema over the lateral aspect of the right ankle and foot. There is no bony crepitance or step-off. There is no tenderness over the proximal fibula. There is tenderness over the fifth metatarsal area. Range of motion was limited in all motions of the right foot and ankle secondary to pain. Sensation was intact to light touch in all digits. Capillary refill was less than 2 seconds in all digits. Pedal pulses are equal bilaterally. 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 Patient was given a dose of ibuprofen here. X-rays of the right ankle were obtained. There are 3 views. On my interpretation, there is no acute fracture. There is some soft tissue swelling. There is no dislocation. Radiologist also interpreted the x-rays and agrees. X-rays of the right foot were obtained. There are 3 views. On my interpretation, there is no acute fracture. There is some soft tissue swelling. There is no dislocation. Radiologist also interpreted the x-rays and agrees. Patient was given a walking boot and crutches. Patient was given a prescription for ibuprofen. Patient was instructed to ice and elevate the right foot and ankle. Patient was instructed to follow-up with her primary care physician in 5 to 7 days. Patient understood and was agreeable with the plan. All questions were answered. Radiography Diagnostic Testing: Radiology Impression Ankle X-Ray 08/22/20 20:38 IMPRESSION: No acute osseous abnormality. Electronically Signed: Andi Batista MD at 21:29 EDT Tel , Service support , Foot X-Ray 08/22/20 20:38 IMPRESSION: No acute osseous abnormality. Electronically Signed: Andi Batista MD at 21:30 EDT Tel , Service support , Discharge Plan Triage Chief Complaint: Lower Extremity Injury ED Provider: Jack Simmons Dx/Rx/DC Orders Clinical Impression: Right ankle sprain Instructions: ED Ankle Sprain (Adult) Prescriptions: New ibuprofen 800 mg tablet 800 mg PO Q8H PRN (Reason: pain) Qty: 20 RF: 0 Primary Care Provider: Lili Goddard Referrals: Lili Goddard MD [Primary Care Provider] - 3-5 Days Disposition Disposition: Home, Self Care Discharge Date/Time: 08/22/20 23:17
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
[2020-08-22] MEDS: Ibuprofen 400 MG Tablet 800 MG PO (20:42)
[2020-08-22 23:15] VITALS: BP 132/76; PULSE 82; RESP 16; O2SAT 99
== END 2020-08-22 23:17 | disposition home or self-care (01) ==
PROVIDERS: Emergency Provider Emergency Medicine; PCP Internal Medicine
DX: S93.401A Sprain of unspecified ligament of right ankle, initial encounter (principal); F17.290 Nicotine dependence, other tobacco product, uncomplicated; X50.1XXA Overexertion from prolonged static or awkward postures, initial encounter; Y93.01 Activity, walking, marching and hiking; Y92.89 Other specified places as the place of occurrence of the external cause; Y99.8 Other external cause status
CPT/HCPCS: 73610; 73630; 99285

== ENCOUNTER 2022-02-16 08:27 | Emergency (ER) | payer OTHER, MEDICAID, SELFPAY ==
[2022-02-16 08:28] VITALS: BP 120/77; PULSE 90; RESP 17; TEMP 36; O2SAT 100; BMI 33.7
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
--- NOTE | 2022-02-16 09:30 | EDS_ITS ---
HPI HPI - Fall History of Present Illness Chief Complaint: Fall Informant: patient Narrative Narrative: Patient slipped and fell at work yesterday. She was backing a wheelchair into a building her feet went out from under her and she landed on her back. She has pain at the base of the neck into the right side of the lower thoracic spine. She is not having headaches. Did not lose consciousness. She is not sure if she hit her head that much but rather hitting her back. No numbness tingling weakness or neurologic complaints. She is not on any blood thinners. No history of back or neck issues. Pressing and moving makes it worse. Nothing specific makes it better. PFSH PFSH Medical History Carpal tunnel syndrome of right wrist Depression PCOS (polycystic ovarian syndrome) Home Medications ibuprofen 800 mg tablet 800 mg PO TID PRN pain #20 tabs 02/16/22 [Rx Last Taken Unknown] Allergy/AdvReac Type Severity Reaction Status Date / Time hydrocodone [From [place]] Allergy Hives Verified 02/16/22 08:28 naproxen Allergy Rash Verified 02/16/22 08:28 Penicillins Allergy Hives Verified 02/16/22 08:28 Family History Grandfather Diabetes Heart disease Surgical History delivery delivered removal of gallbladder Social History Smoking Status: Current every day smoker tobacco type: e-cigarettes alcohol intake: never substance use type: does not use caffeine: Yes what type of physical activity do you participate in: none seatbelt use: sometimes do you feel safe at home: Yes additional social history: Single ROS ROS ED Constitutional Constitutional ED: Denies chills or fever(s) Eyes Eyes: Denies change in vision ENT ENT ED: Denies rhinorrhea Cardiovascular Cardiovascular: Denies chest pain, palpitations or racing heartbeat Respiratory/Chest Respiratory/Chest: Denies cough or dyspnea Gastrointestinal Gastrointestinal: Denies abdominal pain Genitourinary Genitourinary ED: Denies hematuria Musculoskeletal Musculoskeletal: Reports back pain and neck pain Integumentary Denies Abrasions or rash Neurologic Neurologic: Denies headache(s), paresthesias or weakness Hematologic/Lymphatic Hematologic/Lymphatic: Denies easy bleeding or easy bruising EXAM Physical Exam Const Vital Signs: 02/16/22 08:28 02/16/22 08:28 Temperature 96.8 F L Temperature Source Temporal Pulse Rate 90 Respiratory Rate 17 Respiratory Effort Normal Non-Labored Respiratory Depth Normal Respiratory Pattern Normal Blood Pressure 120/77 Blood Pressure Mean 91 Pulse Ox 100 Oxygen Delivery Method Room Air Room Air Positive well nourished and well developed Constitutional Narrative: Normal gait and balance walking back to the room. General Appearance ED: well developed and NAD HEENT Reports normocephalic HEENT Narrative: No visible or palpable sign of head trauma. Negative for trauma Eyes EOMs intact bilaterally General Eye ED: Negative for scleral icterus Neck Neck Narrative: Patient does have some centralized cervical spine tenderness mostly at C5-C7 area. There is no visible bruising yet at this point. No crepitance is felt. Chest Wall inspection of chest normal Chest Narrative: Patient has tenderness in the mid to lower thoracic area just right of midline. This really is not rib tenderness but it is right lateral paraspinal tenderness. She does not actually have spinous process tenderness. Resp normal respiratory effort Auscultation: Negative for rales, rhonchi or wheezes Cardio regular rate and regular rhythm GI non-tender Back/Spine no CVA tenderness Back/Spine Narrative: See above under chest exam regarding thoracic spine and under cervical neck exam for cervical spine. Extremity Extremity Narrative: No extremity trauma or pain with range of motion Neuro oriented x3, moves all extremities, no focal motor deficits and no sensory deficits noted Sensorium / Orientation: Negative for orientation impaired, confused, lethargic or stuporous Psych mental status grossly normal Skin Skin Narrative: No contusions or abrasions at this time. MDM MDM MDM Narrative Medical decision making narrative: CT scan of cervical spine looked at by me and read by radiology shows no acute process. Thoracic spine x-rays also showed no acute process. Patient did fall she likely has a strain and contusion to the area. Ice rest nonsteroidals should be appropriate. We did not do CT of the head because she is not having headache. She has no neurologic symptoms. There is no loss of consciousness. She is not on any blood thinners. Radiography Diagnostic Testing: Clinical Impression(s) from Imaging Studies Cervical Spine CT 02/16/22 09:[address] evidence of acute fracture or malalignment of the cervical spine, the craniocervical junction and cervicothoracic junction. 2. No CT evidence of cervical extruded disc fragment or spinal stenosis. Electronically Signed: Ha Walker MD at 10:34 EST Reading Location ID and State: [facility] / [place] , Service support , Thoracic Spine X-Ray 02/16/22 09:29 IMPRESSION: Normal thoracic spine radiographs. Electronically Signed: Ha Walker MD at 10:36 EST , See MDM above. Discharge Plan Triage Chief Complaint: Fall ED Provider: Norbert Roberts Dx/Rx/DC Orders Clinical Impression: Fall from slipping, Cervical strain, Strain of thoracic spine, Neck contusion, Contusion of thoracic spine Instructions: ED Back Contusion Prescriptions: New ibuprofen 800 mg tablet 800 mg PO TID PRN (Reason: pain) Qty: 20 0RF Primary Care Provider: Lili Goddard Referrals: Lili Goddard MD [Primary Care Provider] - 3-5 Days if not improving Disposition Disposition: Home, Self Care
[2022-02-16 10:42] VITALS: RESP 16
[2022-02-16 10:59] VITALS: BP 108/57; PULSE 64; RESP 15; O2SAT 98
== END 2022-02-16 11:01 | disposition home or self-care (01) ==
PROVIDERS: Emergency Provider Emergency Medicine; PCP Internal Medicine; Visit Provider Emergency Medicine
DX: S16.1XXA Strain of muscle, fascia and tendon at neck level, initial encounter (principal); S29.012A Strain of muscle and tendon of back wall of thorax, initial encounter; W01.0XXA Fall on same level from slipping, tripping and stumbling without subsequent striking against object, initial encounter; Y99.0 Civilian activity done for income or pay
CPT/HCPCS: 72072; 72125; 99282

== ENCOUNTER 2022-08-08 06:45 | Emergency (ER) | payer MEDICAID, SELFPAY ==
[2022-08-08 06:46] VITALS: BP 129/75; PULSE 86; RESP 18; TEMP 36.2; O2SAT 98; BMI 35.0
--- NOTE | 2022-08-08 06:53 | EDS_ITS ---
HPI History of Present Illness Chief Complaint: General Illness Informant: patient Narrative Narrative: Present persistent cough sore throat over the past 4 weeks. Initially diagnosed with strep has been to her PCP and well now. She has had persistent strep last time seen 2 weeks ago. She denies tobacco history. States symptoms feeling like it is getting worse. Reports dyspnea. Currently on Ask. She is on Bromfed for cough. PCP also has her on pantoprazole and iron. She has inhaler. Prior to 4 weeks ago did not have significant strep history. She states she is post to return next month to the office to recheck if she still has strep. [facility] Medical History Carpal tunnel syndrome of right wrist Depression PCOS (polycystic ovarian syndrome) Home Medications ibuprofen 800 mg tablet 800 mg PO TID PRN pain #20 tabs 02/16/22 [Rx Last Taken Unknown] lctcibreszcozud-hiigponiwyajkgr-VM 2 mg-30 mg-10 mg/5 mL oral syrup ml 08/08/22 [History Last Taken Unknown] cephalexin 500 mg capsule mg 08/08/22 [History Last Taken Unknown] ferrous sulfate 325 mg (65 mg iron) tablet (FeroSul) mg 08/08/22 [History Last Taken Unknown] pantoprazole 40 mg tablet,delayed release mg PO 08/08/22 [History Last Taken Unknown] Allergy/AdvReac Type Severity Reaction Status Date / Time hydrocodone [From [place]] Allergy Hives Verified 02/16/22 08:28 naproxen Allergy Rash Verified 02/16/22 08:28 Penicillins Allergy Hives Verified 02/16/22 08:28 Family History Grandfather Diabetes Heart disease Surgical History delivery delivered removal of gallbladder Social History Smoking Status: Current every day smoker tobacco type: e-cigarettes alcohol intake: never substance use type: does not use caffeine: Yes what type of physical activity do you participate in: none seatbelt use: sometimes do you feel safe at home: Yes additional social history: Single ROS ROS ED Constitutional Constitutional ED: Denies chills, fever(s) or sweats Eyes Eyes: Denies change in vision ENT ENT ED: Reports sore throat; Denies dysphagia Cardiovascular Cardiovascular: Denies chest pain, leg edema, palpitations or racing heartbeat Respiratory/Chest Respiratory/Chest: Reports cough; Denies dyspnea or dyspnea on exertion Gastrointestinal Gastrointestinal: Denies abdominal pain, diarrhea, nausea or vomiting Genitourinary Genitourinary ED: Denies dysuria, hematuria or urinary frequency Musculoskeletal Musculoskeletal: Denies back pain, extremity pain or neck pain Integumentary Denies rash or wounds Neurologic Neurologic: Denies headache(s), paresthesias or weakness EXAM Physical Exam Const Vital Signs: 08/08/22 06:46 08/08/22 06:49 Temperature 97.2 F L Temperature Source Temporal Pulse Rate 86 Respiratory Rate 18 Respiratory Effort Normal Non-Labored Respiratory Pattern Normal Blood Pressure 129/75 H Blood Pressure Mean 93 Pulse Ox 98 Oxygen Delivery Method Room Air Positive well nourished and well developed Constitutional Narrative: Occasional coughing during exam. General Appearance ED: well developed and NAD HEENT Reports moist mucous membranes HEENT Narrative: Minimal erythema posterior pharynx, no exudates, airway patent, no stridor. normocephalic and atraumatic Eyes PERRL, EOMs intact bilaterally and conjunctivae normal General Eye ED: Yes normal appearance of both eyes Neck no lymphadenopathy and supple General: Negative for tenderness Chest Wall Chest: Negative for tenderness Resp normal respiratory effort and normal air movement Effort and Inspection: symmetric chest movement; Negative for respiratory distress Cardio regular rate, regular rhythm and no murmurs Peripheral Pulses: pulses 2+ throughout GI normal to inspection, nondistended, normoactive bowel sounds and non-tender Palpation: Negative for guarding or rebound tenderness present Back/Spine no CVA tenderness and no thoracic nor lumbar tenderness Extremity normal to inspection General Extremety ED: Negative for edema or tenderness General Extremity: Negative for edema Neuro oriented x3 and no sensory deficits noted Sensorium / Orientation: awake and alert Skin no rashes or lesions noted and no wounds MDM MDM MDM Narrative Medical decision making narrative: Interventions / MDM: Differential diagnosis: Bronchitis, pneumonia, pharyngitis Diagnosis considered but do not suspect: N/A My EKG interpretation: N/A Imaging independently reviewed and interpreted by myself: 2 view chest x-ray: No infiltrates, no pneumothorax External documents reviewed: N/A Test considered but not ordered:N/A ED course: Patient nontoxic vital signs stable. Persistent cough and sore throat currently on antibiotics. She reports no x-rays have been done. This was ordered, with her symptomatic sore throat also given a dose of dexamethasone in the ED which has not been provided in the past. Re-evaluation: 0750: Chest x-ray negative. Rapid strep negative. Patient is re assured she will finish her antibiotics. Discussed adjunct therapies for her cough. Outpatient follow-up. All questions were answered. Disposition discussed with patient/family/significant other: Patient Case discussed with consulting clinician: N/A Radiography Diagnostic Testing: Clinical Impression(s) from Imaging Studies Chest X-Ray 08/08/22 07:00 IMPRESSION: No acute cardiopulmonary abnormality. Electronically Signed: Paul Obrien MD at 7:18 EDT Reading Location ID and State: [address] [place] [address] Tel , Service support , Discharge Plan Triage Chief Complaint: General Illness ED Provider: Jeremiah Kwong Dx/Rx/DC Orders Clinical Impression: Bronchitis, Pharyngitis Instructions: ED Bronchitis with Wheezing (Adult) Prescriptions: No Action ibuprofen 800 mg tablet 800 mg PO TID PRN (Reason: pain) Qty: 20 0RF cephalexin 500 mg capsule Label Comments: Take 1 capsule (Oral) 2 times per day for 10 days pantoprazole 40 mg tablet,delayed release (DR/EC) PO Label Comments: TAKE 1 TABLET BY MOUTH DAILY WITH BREAKFAST ON AN EMPTY STOMACH ONE-HALF HOUR BEFORE MEAL ferrous sulfate [FeroSul] 325 mg (65 mg iron) tablet Label Comments: TAKE 1 TABLET BY MOUTH TWICE DAILY WITH MEALS zxcpkatnweduiis-fkqnmcrbg-CH 2-30-10 mg/5 mL syrup Label Comments: Take 10 mL (Oral) every 4-6 hours for 5 days Stand Alone Forms: ED Work / School Excuse Primary Care Provider: Lili Goddard Referrals: Lili Goddard MD [Primary Care Provider] - 1 Week Activity Restrictions/Additional Instructions: Strep negative. Chest x-ray negative. Finish your antibiotic. Use vapor rubs emitted fire to help with symptoms. Follow-up with your doctor. Disposition Disposition: Home, Self Care
[2022-08-08] MEDS: dexAMETHasone 4 MG Tablet 12 MG PO (06:56)
--- NOTE | 2022-08-08 07:00 | RAD_ITS ---
EXAM: XR CHEST, 2 VIEWS CLINICAL INDICATION: cough TECHNIQUE: Frontal and lateral views of the chest. COMPARISON: No relevant prior studies available. FINDINGS: LUNGS AND PLEURAL SPACES: Unremarkable. No consolidation or edema. No pneumothorax. No effusion. HEART: Unremarkable. Cardiac silhouette not enlarged. MEDIASTINUM: Central airways and mediastinal contour are unremarkable. BONES/JOINTS: Unremarkable. SOFT TISSUES: Unremarkable. RAD/Chest PA and Lateral IMPRESSION: No acute cardiopulmonary abnormality. Electronically Signed: Paul Obrien MD at 7:18 EDT ,
== END 2022-08-08 08:03 | disposition home or self-care (01) ==
PROVIDERS: Emergency Provider Emergency Medicine; PCP Internal Medicine; Visit Provider Emergency Medicine
DX: J40 Bronchitis, not specified as acute or chronic (principal); J02.9 Acute pharyngitis, unspecified
CPT/HCPCS: 71046; 87880; 99283

== ENCOUNTER → 2022-09-07 | Outpatient (CLI) | payer MEDICAID, SELFPAY | END | disposition home or self-care (01) | LOC: LABSPEC 15:33 | PROVIDERS: PCP Internal Medicine; Referring Provider Otolaryngology; Visit Provider Otolaryngology | DX: J02.9 Acute pharyngitis, unspecified (principal) | CPT/HCPCS: 87070 ==

== ENCOUNTER → 2022-09-23 | Outpatient (CLI) | payer MEDICAID, SELFPAY | END | disposition home or self-care (01) | LOC: LABSPEC 15:15 | PROVIDERS: PCP Internal Medicine; Referring Provider Otolaryngology; Visit Provider Otolaryngology | DX: J02.9 Acute pharyngitis, unspecified (principal) | CPT/HCPCS: 87070 ==

== ENCOUNTER → 2022-09-30 | Outpatient (CLI) | payer MEDICAID, SELFPAY ==
--- NOTE | 2022-09-30 07:56 | RAD_ITS ---
STUDY: X-RAY - ESOPHAGUS (BARIUM SWALLOW) WITH FLUOROSCOPY REASON FOR EXAM: Female, 31 years old. DYSPHAGIA TECHNIQUE: 15 view(s) of the esophagus were obtained following swallowing of barium. FLUOROSCOPY TIME (if supplied): (39 seconds) minutes/seconds. 20.64 mGy COMPARISON: None. FINDINGS: There is no demonstrated esophageal foreign body. There is no demonstrated stricture or mucosal abnormality. Normal gastroesophageal junction, without a demonstrated hiatal hernia. The patient ingested a 12 mm tablet of barium without any difficulty. Normal visualized aortic arch and descending thoracic aorta. Normal visualized pulmonary parenchyma. Normal visualized osseous structures of the thorax. RAD/Esophagus Dual Contrast IMPRESSION: Normal plain film x-ray examination (barium swallow) of the esophagus. Electronically Signed: Memo Carroll MD at 8:27 EDT ,
== END | disposition home or self-care (01) ==
LOC: RAD 07:40
PROVIDERS: PCP Internal Medicine; Referring Provider Otolaryngology; Visit Provider Otolaryngology
DX: R13.10 Dysphagia, unspecified (principal)
CPT/HCPCS: 74221

== ENCOUNTER → 2022-10-07 | Outpatient (CLI) | payer MEDICAID, SELFPAY ==
--- NOTE | 2022-10-07 13:41 | CT_ITS ---
STUDY: CT SOFT TISSUE NECK WITH CONTRAST REASON FOR EXAM: Female, 31 years old. DYSPHAGIA X3 MONTHS RADIATION DOSAGE (If Supplied By Facility): CTDIvol = ( 19.07 ) mGy, DLP = ( 490.67 ) mGycm TECHNIQUE: The patient was scanned in a multi-detector CT scanner. High resolution transaxial imaging was performed following intravenous administration of IV 75mL Isovue-300. Sagittal and coronal images were reconstructed. Individualized dose optimization techniques were used for this CT. COMPARISON: None. FINDINGS: Normal bilateral parotid glands. Normal bilateral material carrier spaces. Normal bilateral parapharyngeal spaces. Normal bilateral carotid spaces. Normal bilateral sublingual and submandibular glands and spaces. Normal visualized nasopharynx. Normal retropharyngeal space. Normal perivertebral space. Normal visualized bilateral faucial tonsils. The visualized tongue, tongue base and oropharynx are normal. There are minimally enlarged lymph nodes of the neck, with preservation of normal alban architecture, consistent with a reactive lymph hyperplasia. There is no demonstrated solid or cystic mass lesion. There is no abnormal contrast enhancement. Normal epiglottis, bilateral vallecula and hypopharynx. The pre-epiglottic and paraglottic adipose spaces are normal. Normal visualized bilateral piriform sinuses, aryepiglottic folds, vocal cords, and arytenoid-cricoid articulations. Normal subglottic trachea. Normal bilateral lobes of the thyroid gland. Normal visualized pulmonary apices. Normal visualized paranasal sinuses. Normal visualized cervical spine. CT/Soft Tissue Neck WITH Contrast IMPRESSION: Normal enhanced CT examination of the soft tissues of the neck. Electronically Signed: Memo Carroll MD at 14:47 EDT ,
== END | disposition home or self-care (01) ==
LOC: CT 13:39
PROVIDERS: PCP Internal Medicine; Referring Provider Otolaryngology; Visit Provider Otolaryngology
DX: R13.10 Dysphagia, unspecified (principal)
CPT/HCPCS: 70491; Q9967

== ENCOUNTER 2023-03-22 06:49 | Emergency (ER) | payer MEDICAID, SELFPAY ==
[2023-03-22 06:51] VITALS: BP 137/81; PULSE 100; RESP 18; TEMP 36.1; O2SAT 100; BMI 39.2
--- NOTE | 2023-03-22 07:25 | CT_ITS ---
STUDY: CT ABDOMEN AND PELVIS WITH CONTRAST REASON FOR EXAM: Female, 32 years old. Left flank pain. Right upper extremity swelling. RADIATION DOSAGE (If Supplied By Facility): CTDIvol = ( 15.78 ) mGy, DLP = ( 1103.30 ) mGycm TECHNIQUE: Transaxial images were obtained from the dome of the diaphragm to the symphysis pubis without oral contrast. IV 100mL Isovue-370 was administered. Sagittal and coronal images were reconstructed. Individualized dose optimization techniques were used for this CT. COMPARISON: Comparison is made with prior study dated January 15, 2020. FINDINGS: The visualized lung bases are unremarkable. The visualized portions of the heart are within normal limits. There is decreased attenuation of the liver consistent with steatosis. The patient is status post cholecystectomy. Normal spleen. Normal pancreas. Normal bilateral adrenal glands. Normal right kidney. Normal left kidney. Normal visualized stomach. Normal small intestine. Normal colon. The appendix is visualized and appears normal. Normal abdominal aorta. Normal inferior vena cava. Normal retroperitoneum. Normal urinary bladder. Endometrial thickening. This may be related to the patient''s menstrual cycle. There is a small umbilical hernia containing fat. Normal osseous structures. CT/Abdomen/Pelvis W IV Cont ONLY IMPRESSION: Fatty infiltration of the liver. The patient is status post cholecystectomy. Endometrial thickening. This may be related to the patient''s menstrual cycle. Electronically Signed: Memo Carroll MD at 9:01 EST ,
--- NOTE | 2023-03-22 07:27 | EDS_ITS ---
HPI History of Present Illness Chief Complaint: Flank Pain Informant: patient Narrative Narrative: 32-year-old female presents with a 1 month constant pain in her epigastrium left upper quadrant that radiates to the left flank. Sometimes movement makes it worse. She has not seen anybody for it over the past month. She states that it continues to intensify. She notes a metallic taste in her mouth. No nausea vomiting or diarrhea. Patient denies any black or bloody or abnormal bowel movements. No fevers. She states that about a month ago she was told she had the flu . She did not receive a formal influenza test. Patient states those symptoms have resolved. No shortness of breath. No current cough. She notes a nondescript rash on the medial left forearm that began this morning and is itchy. She states that the left distal forearm and wrist have been swollen over the past week. She denies any trauma or pain there. She denies IV blood draws recently. She denies any rash on the abdomen. She notes urinary frequency. She denies hematuria or dysuria. She states that she currently takes no medications and has no medical problems. [facility] Medical History Carpal tunnel syndrome of right wrist Depression PCOS (polycystic ovarian syndrome) Home Medications methylphenidate HCl 10 mg tablet 10 mg PO BID 03/22/23 [History Last Taken Unknown] Allergy/AdvReac Type Severity Reaction Status Date / Time hydrocodone [From [place]] Allergy Hives Verified 03/22/23 06:51 naproxen Allergy Rash Verified 03/22/23 06:51 Penicillins Allergy Hives Verified 03/22/23 06:51 Family History Grandfather Diabetes Heart disease Surgical History delivery delivered removal of gallbladder Social History Smoking Status: Current every day smoker tobacco type: e-cigarettes alcohol intake: never substance use type: does not use caffeine: Yes what type of physical activity do you participate in: none seatbelt use: sometimes do you feel safe at home: Yes additional social history: Single ROS ROS ED Constitutional Constitutional ED: Denies chills or weight loss Eyes Eyes: Denies change in vision or diplopia ENT ENT ED: Reports other Details: Metallic taste in mouth ; Denies ear pain, rhinorrhea or sore throat Cardiovascular Cardiovascular: Denies chest pain, orthopnea, palpitations or racing heartbeat Respiratory/Chest Respiratory/Chest: Denies cough, dyspnea or orthopnea Gastrointestinal Gastrointestinal: Reports abdominal pain; Denies diarrhea, nausea or vomiting Genitourinary Genitourinary ED: Reports urinary frequency; Denies dysuria or hematuria Musculoskeletal Musculoskeletal: Reports other Details: Left flank pain Right distal forearm wrist swelling ; Denies arthralgias or myalgias Integumentary Reports rash; Denies abscess Neurologic Neurologic: Denies headache(s) or weakness Psychiatric Psychiatric: Denies anxiety, depression, suicidal ideation or suicidal thoughts Endocrine Endocrinology: Denies polydipsia, polyphagia or polyuria Allergic/Immunologic Allergic/Immunologic ED: Denies mouth swelling, tongue swelling or urticaria EXAM Physical Exam Const Vital Signs: 03/22/23 06:51 03/22/23 10:46 Temperature 97 F L Temperature Source Temporal Pulse Rate 100 71 Respiratory Rate 18 Blood Pressure 137/81 H 113/79 Blood Pressure Mean 99 90 Pulse Ox 100 Positive well nourished, well developed and obese General Appearance ED: well developed Nutritional Appearance: obese HEENT Reports normocephalic, head/scalp atraumatic and moist mucous membranes Eyes PERRL and EOMs intact bilaterally Neck no lymphadenopathy, supple and no JVD Resp normal respiratory effort and clear to auscultation bilaterally Cardio regular rate, regular rhythm and no murmurs GI GI Narrative: No rash noted to abdomen Inspection: Negative for abdominal distention Auscultation: normoactive bowel sounds Palpation: soft and tender LUQ; Negative for guarding or rebound tenderness present Back/Spine no CVA tenderness and normal ROM Extremity Extremity Narrative: There is a very faint small red blanching dots to the medial proximal left forearm. There are some scratch glez. Right distal forearm wrist shows mild swelling. Nontender. Full range of motion. Does not appear to have any v enipuncture glez. No rash. Neuro oriented x3 and CN's II-XII intact bilaterally Sensorium / Orientation: alert Motor Exam: strength 5/5 throughout Psych mental status grossly normal Mood & Affect: Negative for depressed or tearful Skin no rashes or lesions noted and no wounds MDM MDM MDM Narrative Medical decision making narrative: White count 7.6 with hemoglobin of 11.3. No left shift. Platelet count 347. BMP showed creatinine 0.70 glucose 94 liver enzymes normal lipase normal at 43. Urinalysis shows no overt infection no protein no glucose. CT of the abdomen pelvis was obtained with IV contrast. This did not show an obvious cause for the patient's left upper quadrant left flank pain. My independent interpret ation of the chest x-ray is no acute process. Her troponin is 4. EKG shows no ischemic process or significant abnormalities. At this point do not see significant cause for the patient's pain. No splenic infarction. I doubt that this is pulmonary embolism she has no chest pain or shortness of breath no DVT PE risk factors. No pleuritic component. I do not believe this to be ACS in nature. I do not see that there is a eating component to suggest gastric or duodenal ulcer/inflammatory process. This point patient will be discharged home. Instructions to follow-up with primary care. History & Record Review Discussion w/independent historian: Patient Lab Data Attestation: I reviewed the patient's lab results. Labs: Laboratory Results - last 24 hr 03/22/23 03/22/23 07:53 10:07 WBC 7.6 RBC 4.10 L Hgb 11.3 L Hct 35.9 L MCV 87.6 MCH 27.6 MCHC 31.5 L RDW Std Deviation 45.5 H RDW Coeff of [place] 14.3 Plt Count 347 MPV 9.0 Immature Gran % (Auto) 0.400 Neut % (Auto) 56.3 Lymph % (Auto) 28.6 [place] % (Auto) 9.7 Eos % (Auto) 4.5 Baso % (Auto) 0.5 Absolute Neuts (auto) 4.3 Absolute Lymphs (auto) 2.17 Nucleated RBC % 0 Sodium 139 Potassium 3.9 Chloride 108 H Carbon Dioxide 27.0 Anion Gap 4 L BUN 16 Creatinine 0.70 Estim Creat Clear Calc 128.00 Est GFR (MDRD) Af Amer 123 Est GFR (MDRD) Non-Af 101 BUN/Creatinine Ratio 22.8 H Glucose 94 Calcium 8.8 Total Bilirubin 0.40 Direct Bilirubin 0.11 AST 25 ALT 35 Alkaline Phosphatase 72 Troponin I High Sens 4 Total Protein 7.6 Albumin 3.6 Globulin 4.0 Lipase 43 Serum , Qual NEGATIVE Urine Color Yellow Cancelled Urine Clarity Sl. Cloudy Cancelled Urine pH 6.5 Cancelled Ur Specific [place] 1.020 Cancelled U Specif Grav (Refrac) Cancelled Urine Protein Negative Cancelled Urine Glucose (UA) Normal Cancelled Urine Ketones Negative Cancelled Urine Occult Blood 10 H Cancelled Urine Nitrite Negative Cancelled Urine Bilirubin Negative Cancelled Urine Urobilinogen Normal Cancelled Ur Leukocyte Esterase Negative Cancelled Urine RBC 0-5 SEEN Cancelled Urine WBC 0 SEEN Cancelled Ur Squamous Epith Cells 0-5 SEEN Cancelled Ur Transition Epith Cell Cancelled Ur Renal Epithelial Cell Cancelled Calcium Oxalate Crystal Cancelled Uric Acid Crystals Cancelled Triple Phos Crystals Cancelled Other Crystals Cancelled Amorphous Sediment Cancelled Urine Bacteria 0 SEEN Cancelled Hyaline Casts Cancelled Fine Granular Casts Cancelled Coarse Granular Casts Cancelled Waxy Casts Cancelled RBC Casts Cancelled WBC Casts Cancelled Urine Mucus 0 SEEN Cancelled Urine Trichomonas Cancelled Urine Yeast Cancelled Radiography Diagnostic Testing: Clinical Impression(s) from Imaging Studies Abdomen/Pelvis CT 03/22/23 07:25 IMPRESSION: Fatty infiltration of the liver. The patient is status post cholecystectomy. Endometrial thickening. This may be related to the patient''s menstrual cycle. Electronically Signed: Memo Carroll MD at 9:01 EST , Chest X-Ray 03/22/23 07:55 IMPRESSION: No acute abnormality is seen. Questionable hiatal hernia. Electronically Signed: Memo Carroll MD at 8:09 EST , EKG Initial EKG: Attestation: I personally reviewed and interpreted this EKG as follows: Comments: Normal sinus rhythm with a ventricular rate of 80 bpm. Discharge Plan Triage Chief Complaint: Flank Pain ED Provider: Salvatore Valerio Dx/Rx/DC Orders Clinical Impression: Urinary frequency, Abdominal pain Instructions: Abdominal Pain Prescriptions: No Action methylphenidate HCl 10 mg tablet 10 mg PO BID Patient Comments: TAKE 1 TABLET BY MOUTH 2 TIMES A DAY FOR 7 DAYS Primary Care Provider: Lili Goddard Referrals: Lili Goddard MD [Primary Care Provider] - As soon as possible Disposition Disposition: Home, Self Care
--- NOTE | 2023-03-22 07:55 | RAD_ITS ---
STUDY: X-RAY CHEST REASON FOR EXAM: Female, 32 years old. Pain TECHNIQUE: Single AP portable view of the chest. COMPARISON: Comparison is made with prior study 04/10/2022. FINDINGS: The lungs are clear and expanded. There is no demonstrated pleural abnormality. Normal size heart. Normal mediastinum and cristina. Normal visualized pulmonary arteries. Normal visualized aortic arch and descending thoracic aorta. Normal visualized thoracic spine. Normal visualized ribs, clavicles, and shoulders. Questionable hiatal hernia. RAD/Chest 1 View (Portable) IMPRESSION: No acute abnormality is seen. Questionable hiatal hernia. Electronically Signed: Memo Carroll MD at 8:09 EST ,
[2023-03-22 08:07] LABS: Absolute Lymphocyte Count 2.17 X10^3/uL (0.83-4.51); Absolute Neutrophil Count 4.3 X10^3/uL (2.0-7.7); Basophil# 0.04 X10^3/uL; Basophil% 0.5 % (0-1); Color, Urine Yellow (Yellow); Eosinophil# 0.34 X10^3/uL; Eosinophils% 4.5 % (0-5); Glucose, Dipstick Normal (Normal); Hematocrit 35.9 % (37-47); Hemoglobin 11.3 g/dL (12.0-15.0); Ketone-Dipstick Negative (Negative); Leukocyte Esterase-Dipstick Negative /ul (Negative); Lymphocyte # 2.17 X10^3/ul (0.83-4.51); Lymphocyte % 28.6 % (19-41); Mean Corp Hgb Conc 31.5 g/dL (32-36); Mean Corpuscular Hgb 27.6 pg (27.0-32.0); Mean Corpuscular Volume 87.6 fL (81-99); Monocyte# 0.74 X10^3/uL; Monocyte% 9.7 % (0-10); NRBC Flagged by Analyzer 0 % (0-5); Neutrophil # 4.28 X10^3/uL (2.7-7.7); Neutrophil % 56.3 % (47-70); Nitrite-Dipstick Negative (Negative); Occult Blood-Urine 10 /ul (Negative); Platelet Count 347 K/mm3 (150-450); Protein-Dipstick Negative (Negative); RBC Distribution Width CV 14.3 % (11.6-14.6); RBC Distribution Width SD 45.5 fl (35.1-43.9); Urine Bilirubin Dipstick Negative (Negative); Urine Clarity Sl. Cloudy (Clear); Urine Urobilinogen Normal (Normal); Urine pH 6.5 (5.0 - 8.0); White Blood Count 7.6 K/mm3 (4.4-11.0)
[2023-03-22 08:13] LABS: Internal QC Validated? YES +Cl - CLEAR BKGD; Pregnancy, Serum, hCG Quali. NEGATIVE Negative; Record Kit Lot#, Serum Preg. HCG0000718086
[2023-03-22 08:25] LABS: AST(SGOT) 25 U/L (15-37); Alanine Aminotransfer ALT/SGPT 35 U/L (13-56); Albumin, Serum 3.6 g/dL (3.2-5.0); Alkaline Phosphatase 72 U/L (45-117); Anion Gap 4 (5-15); BUN 16 mg/dL (7-18); BUN/Creat Ratio 22.8 RATIO (10-20); Bilirubin, Direct 0.11 mg/dL (0.00-0.30); Calcium,Total 8.8 mg/dL (8.5-10.1); Chloride 108 mmol/L (98-107); EST Glomerular Filtration Rate 101 mL/min (>60); Est Glom Filt Rate - Afr Amer 123 mL/min (>60); Glucose 94 mg/dL (74-106); Lipase 43 U/L (13-75); Potassium 3.9 mmol/L (3.5-5.1); Protein, Total 7.6 g/dL (6.4-8.2); Sodium Level 139 mmol/L (136-145); Troponin-I HS 4 pg/mL (3.0-54.0)
[2023-03-22 10:18] LABS: Bacteria 0 SEEN /hpf (None Seen); Mucous, Urine 0 SEEN /hpf (<or=2+); White Blood Cells 0 SEEN /hpf (0-5)
[2023-03-22 10:40] LABS: Red Blood Cells-Urine 0-5 SEEN /hpf (0-5); Squamous Epithelial Cells - UA 0-5 SEEN /hpf (5-10)
[2023-03-22 10:46] VITALS: BP 113/79; PULSE 71
== END 2023-03-22 11:52 | disposition home or self-care (01) ==
PROVIDERS: Emergency Provider Emergency Medicine; PCP Internal Medicine; Visit Provider Emergency Medicine
DX: R35.0 Frequency of micturition (principal); R10.12 Left upper quadrant pain; F17.290 Nicotine dependence, other tobacco product, uncomplicated; E66.9 Obesity, unspecified; Z90.49 Acquired absence of other specified parts of digestive tract
CPT/HCPCS: 71045; 74177; 80048; 80076; 81001; 83690; 84484; 84703; 85025; 93005; 99283; Q9967; A4216

== ENCOUNTER → 2023-04-14 | Outpatient (CLI) | payer MEDICAID, SELFPAY ==
--- OUTSIDE RECORDS SUMMARY | 2023-04-14 20:05 | XMS RPT_ITS | CCD ---
Author Name Unknown Address [address] [place] [address] [facility] Care Team Providers Care Auto Salvage Worker Name Role Phone Kandy Lincoln LPN Unavailable Unavailable Kandy Lincoln LPN Unavailable Unavailable Alyce Stoddard MD Unavailable Shanthi Felton MD Unavailable [phone] JOSE CORCORAN Unavailable Georgettei SHANTHI Mendoza Unavailable Unavailabl e GANTA, LILI C Unavailable Unavailable SHILOH CORTES Unavailable Unavailable SHANTHI FELTON Unavailable Unavailabl e GANTA, LILI C Unavailable Unavailable JOSE CORCORAN Unavailable Unavai labSHANTHI Gibbs Unavailable Unavailabl e GANTA, LILI C Unavailable Unavailable SHANTHI FELTON Unavailable Unavailabl e GANTA, LILI C Unavailable Unavailable JOSE CORCORAN Unavailable Unavai labtessa Signs Alyce BOLAND Unavailable Kandy Lincoln LPN Unavailable Unavailable Kandy Lincoln LPN Unavailable Unavailable Kandy Lincoln LPN Unavailable Unavailable Lili Goddard MD Primary Care Provider [phone] Lili Goddard MD Primary Care Provider PHYSICIAN, NONE Primary Care Physician Unavailab GAURI Thomas MD Attending Unavailable PHYSICIAN, NONE Primary Care Unavailable PAIGE BALLARD Attending Unavailable GANTA, LILI Primary Care Unavailable ENGEL, BRITT Attending Unavailable GANTA, LILI Primary Care Unavailable JAIMIE CASTILLO Attending Unavailable ENGEL, BRITT Referring Unavailable GANTA, LILI Primary Care Unavailable JAIMIE CASTILLO Referring Unavailable GANTA, LILI Primary Care Unavailable MADITHELMA Referring Unavailable GANTA, LILI Primary Care Unavailable PAIGE BALLARD Attending Unavailable GANTA, LILI Primary Care Unavailable MADITHELMA Referring Unavailable GANTA, LILI Primary Care Unavailable MADITHELMA Attending Unavailable GANTA, LILI Primary Care Unavailable ENGEL, BRITT Referring Unavailable GANTA, LILI Primary Care Unavailable JAIMIE CASTILLO Referring Unavailable GANTA, LILI Primary Care Unavailable JAIMIE CASTILLO Referring Unavailable GANTA, LILI Primary Care Unavailable MADITHELMA Attending Unavailable JAIMIE CASTILLO Referring Unavailable GANTA, LILI Primary Care Unavailable PAIGE BALLARD Attending Unavailable GANTA, LILI Primary Care Unavailable MADITHELMA Referring Unavailable GANTA, LILI Primary Care Unavailable MADITHELMA Referring Unavailable GANTA, LILI Primary Care Unavailable PAIGE BALLARD Attending Unavailable GANTA, LILI Primary Care Unavailable GANTA, LILI Attending Unavailable GANTA, LILI Primary Care Unavailable GANTA, LILI Referring Unavailable GANTA, LILI Primary Care Unavailable JORDY OWENS Referring Unavailable GANTA, LILI Primary Care Unavailable GANTA, LILI Primary Care Unavailable THELMA BARRAZA Attending Unavailable Allergies Allergy Classification Reported Allergen(s) Allergy Type Date of Onset Reaction(s) Facility (20 sources) naproxen; Translations: [naproxen] drug allergy 6 [facility] Work Phone: (5 sources) penicillin g drug allergy 7 [facility] Work Phone: (2 sources) naproxen drug allergy 7 [facility] (2 sources) penicillin g drug allergy 7 [facility] (18 sources) Penicillins; Translations: [PENICILLINS] Propensity to adverse reactions to drug (disorder) 5 [facility] Repository (1 source) Penicillin; Translations: [penicillins] Drug Allergy [facility] Medications Current Medications Medication Drug Class(es) Dates Sig (Normalized) Sig (Original) benzonatate 100 mg oral capsule (1 source) Non-narcotic Antitussive Start: 09-21-2022 End: 10-01-2022 Tessalon Perles 100 mg oral capsule Dose : 100 mg = 1 cap(s), Oral, TID, X 10 day(s), # 30 cap(s), 0 Refill(s), 10/01/22 8:59:00 AM EDT Start Date: 09/21/22 Stop Date: 10/01/22 Status: Ordered cefdinir 300 mg oral capsule (4 sources) Cephalosporin Antibacterial Start: 08-29-2022 End: 09-08-2022 take 1 capsule by mouth twice daily cefdinir (OMNICEF) 300 mg capsule Indications: Recurrent streptococcal pharyngitis Take 1 capsule by mouth twice daily for 10 days. 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 Problems Active Problems Problem Classification Problem Date Documented Date Episodic/Chronic Anxiety disorders (3 sources) Mixed anxiety and depressive disorder; Translations: [Anxiety disorder, unspecified] Onset: 12-28-2022 12-01-2022 Chronic Asthma (15 sources) Uncomplicated mild persistent asthma; Translations: [Mild persistent asthma, uncomplicated] Onset: 09-23-2022 09-23-2022 Chronic Deficiency and other anemia (2 sources) Anemia; Translations: [Anemia, unspecified] Episodic Disorders usually diagnosed in infancy, childhood, or adolescence (4 sources) Adult attention deficit hyperactivity disorder ; Translations: [Other specified behavioral and emotional disorders with onset usually occurring in childhood and adolescence] Onset: 12-28-2022 12-01-2022 Chronic Immunizations and screening for infectious disease (3 sources) Patient encounter status; Translations: [Encounter for immunization] Onset: 12-28-2022 12-28-2022 Episodic Miscellaneous mental health disorders (1 source) depression 05-07-2015 Episodic Mood disorders (1 source) Mood disorders; Translations: [Anxiety and depression] Onset: 12-28-2022 Other endocrine disorders (1 source) Polycystic ovaries 10-20-2013 Chronic Other lower respiratory disease (4 sources) Cough; Translations: [Acute cough] Onset: 09-21-2022 08-30-2022 Episodic Other lower respiratory disease (1 source) Snoring; Translations: [Snoring] Onset: 03-06-2023 Episodic Other and delivery including normal (1 source) 11-12-2014 Episodic Past or Other Problems Problem Classification Problem Date Documented Date Episodic/Chronic Bacterial infection; unspecified site (7 sources) Infection due to anaerobic bacteria; Translations: [Other specified bacterial agents as the cause of diseases classified elsewhere] Onset: 08-08-2016 08-08-2016 Episodic Deficiency and other anemia (1 source) Anemia, unspecified; Translations: [Anemia, unspecified type] Onset: 08-29-2022 Episodic Open wounds of head; neck; and trunk (7 sources) Unspecified open wound of abdominal wall, unspecified quadrant without penetration into peritoneal cavity, sequela; Translations: [Unspecified open wound of abdominal wall, unspecified quadrant without penetration into peritoneal cavity, sequela] Onset: 08-08-2016 08-08-2016 Episodic Other complications of ; puerperium affecting management of mother (7 sources) Infection of section AND/OR perineal wound; Translations: [Infection of obstetric surgical wound] Onset: 08-08-2016 08-08-2016 Episodic Other upper respiratory infections (5 sources) Streptococcal sore throat; Translations: [Streptococcal pharyngitis] Onset: 08-29-2022 08-29-2022 Episodic Screening and history of mental health and substance abuse codes (2 sources) Personal history of nicotine dependence; Translations: [History of nicotine vaping] Onset: 09-13-2022 Episodic Results Test Name Value Interpretation Reference Range Facil ity Vital Signs Date Time Vital Sign Value Performing Clinician Facility 04-04-2023 14:48-0500 Body height 160 cm Thelma Barraza PA-C Work Phone: [facility] 04-04-2023 14:48-0500 Body weight 98.25 kg Thelma Madi PA-C Work Phone: [facility] 04-04-2023 14:48-0500 Diastolic blood pressure 68 mm[Hg] Thelma Madi PA-C Work Phone: [facility] 04-04-2023 14:48-0500 Heart rate 90 /min Thelma Madi PA-C Work Phone: [facility] 04-04-2023 14:48-0500 Respiratory rate 14 /min Thelma Madi PA-C Work Phone: [facility] 04-04-2023 14:48-0500 SaO2% (BldA) [Mass fraction] 97 % Thelma Madi PA-C Work Phone: [facility] 04-04-2023 14:48-0500 Systolic blood pressure 110 mm[Hg] Thelma Madi PA-C Work Phone: [facility] 02-09-2023 11:47-0500 Body weight 96.16 kg Paige Older REFRIGERATION OPERATOR.CYBER SECURITY MANAGER Work Phone: [facility] 02-09-2023 11:47-0500 Diastolic blood pressure 68 mm[Hg] Paige Older REFRIGERATION OPERATOR.CYBER SECURITY MANAGER Work Phone: [facility] 02-09-2023 11:47-0500 Heart rate 84 /min Paige Older REFRIGERATION OPERATOR.CYBER SECURITY MANAGER Work Phone: [facility] 02-09-2023 11:47-0500 Respiratory rate 16 /min Paige Older REFRIGERATION OPERATOR.CYBER SECURITY MANAGER Work Phone: [facility] 02-09-2023 11:47-0500 SaO2% (BldA) [Mass fraction] 99 % Paige Older REFRIGERATION OPERATOR.CYBER SECURITY MANAGER Work Phone: [facility] 02-09-2023 11:47-0500 Systolic blood pressure 118 mm[Hg] Paige Older REFRIGERATION OPERATOR.CYBER SECURITY MANAGER Work Phone: [facility] 12-28-2022 15:11-0500 Body weight 92.08 kg Paige Older REFRIGERATION OPERATOR.CYBER SECURITY MANAGER Work Phone: [facility] 12-28-2022 15:11-0500 Diastolic blood pressure 78 mm[Hg] Paige Older REFRIGERATION OPERATOR.CYBER SECURITY MANAGER Work Phone: [facility] 12-28-2022 15:11-0500 Heart rate 80 /min Paige Older REFRIGERATION OPERATOR.CYBER SECURITY MANAGER Work Phone: [facility] 12-28-2022 15:11-0500 Respiratory rate 16 /min Paige Older REFRIGERATION OPERATOR.CYBER SECURITY MANAGER Work Phone: [facility] 12-28-2022 15:11-0500 Systolic blood pressure 118 mm[Hg] Paige Older REFRIGERATION OPERATOR.CYBER SECURITY MANAGER Work Phone: [facility] 11-30-2022 15:25-0400 Body weight 91.17 kg Paige Older REFRIGERATION OPERATOR.CYBER SECURITY MANAGER Work Phone: [facility] 11-30-2022 15:25-0400 Diastolic blood pressure 78 mm[Hg] Paige Older REFRIGERATION OPERATOR.CYBER SECURITY MANAGER Work Phone: [facility] 11-30-2022 15:25-0400 Heart rate 92 /min Paige Older REFRIGERATION OPERATOR.CYBER SECURITY MANAGER Work Phone: [facility] 11-30-2022 15:25-0400 Respiratory rate 16 /min Paige Older REFRIGERATION OPERATOR.CYBER SECURITY MANAGER Work Phone: [facility] 11-30-2022 15:25-0400 SaO2% (BldA) [Mass fraction] 99 % Paige Older REFRIGERATION OPERATOR.CYBER SECURITY MANAGER Work Phone: [facility] 11-30-2022 15:25-0400 Systolic blood pressure 122 mm[Hg] Paige Older REFRIGERATION OPERATOR.CYBER SECURITY MANAGER Work Phone: [facility] 09-23-2022 08:40-0400 Body weight 88 kg Jaimie Castillo MD Work Phone: [facility] 09-23-2022 08:40-0400 Heart rate 83 /min Jaimie Casitllo MD Work Phone: [facility] 09-23-2022 08:40-0400 Respiratory rate 15 /min Jaimie Castillo MD Work Phone: [facility] 09-23-2022 08:40-0400 SaO2% (BldA) [Mass fraction] 99 % Jaimie Castillo MD Work Phone: [facility] 09-21-2022 07:53-0400 Body height 160 cm GAURI MADERA MD [facility] 09-21-2022 07:53-0400 Body temperature 99.14 [degF] GAURI MADERA MD [facility] 09-21-2022 07:53-0400 Body weight 86.4 kg GAURI MADERA MD [facility] 09-21-2022 07:53-0400 Diastolic Blood Pressure Non-Invasive 81 1 GAURI MADERA MD [facility] 09-21-2022 07:53-0400 Heart rate 78 /min GAURI MADERA MD [facility] 09-21-2022 07:53-0400 Respiratory rate 20 /min GAURI MADERA MD [facility] 09-21-2022 07:53-0400 Systolic Blood Pressure Non-Invasive 128 1 GAURI MADERA MD [facility] 09-15-2022 07:33-0400 Body height 160 cm Pulm Wstr Work Phone: [facility] 09-15-2022 07:33-0400 Body weight 90.27 kg Pulm Wstr Work Phone: [facility] 08-29-2022 14:38-0400 Body temperature 98.6 [degF] Paige Older REFRIGERATION OPERATOR.CYBER SECURITY MANAGER Work Phone: [facility] 08-29-2022 14:38-0400 Body weight 88.45 kg Paige Older REFRIGERATION OPERATOR.CYBER SECURITY MANAGER Work Phone: [facility] 08-29-2022 14:38-0400 Diastolic blood pressure 70 mm[Hg] Paige Older REFRIGERATION OPERATOR.CYBER SECURITY MANAGER Work Phone: [facility] 08-29-2022 14:38-0400 Heart rate 80 /min Paige Older REFRIGERATION OPERATOR.CYBER SECURITY MANAGER Work Phone: [facility] 08-29-2022 14:38-0400 Respiratory rate 16 /min Paige Older REFRIGERATION OPERATOR.CYBER SECURITY MANAGER Work Phone: [facility] 08-29-2022 14:38-0400 SaO2% (BldA) [Mass fraction] 98 % Paige Older REFRIGERATION OPERATOR.CYBER SECURITY MANAGER Work Phone: [facility] 08-29-2022 14:38-0400 Systolic blood pressure 112 mm[Hg] Paige Older REFRIGERATION OPERATOR.CYBER SECURITY MANAGER Work Phone: [facility] 08-08-2016 14:20-0400 BMI (Body Mass Index) 30.55 kg/m2 Kandy Lincoln LPN [facility] Work Phone: 08-08-2016 14:20-0400 Body Temperature 97.7 [degF] [facility] Work Phone: 08-08-2016 14:20-0400 BP Diastolic 75 mm[Hg] Kandy Lincoln LPN [facility] Work Phone: 08-08-2016 14:20-0400 BP Systolic 112 mm[Hg] Kandy Lincoln LPN [facility] Work Phone: 08-08-2016 14:20-0400 Height 162.56 cm Kandy Lincoln LPN [facility] Work Phone: 08-08-2016 14:20-0400 Pulse (Heart Rate) 77 /min [facility] Work Phone: 08-08-2016 14:20-0400 Pulse Oximetry 99 % Kandy Lincoln LPN [facility] Work Phone: 08-08-2016 14:20-0400 Respiratory Rate 18 /min Kandy Lincoln NICOLAS [facility] Work Phone: 08-08-2016 14:20-0400 Weight 80.74 kg Kandy Lincoln NICOLAS [facility] Work Phone: 07-31-2016 06:54-0400 Body surface area Derived from formula 158.63 mL/min Kandy Lincoln NICOLAS [facility] Work Phone: Encounters Encounter Date Encounter Type Care Provider Facility Start: 04-04-2023 End: 04-04-2023 ambulatory [facility] Facility:[facility] Start: 04-04-2023 End: 04-04-2023 Office outpatient visit 15 minutes Thelma Barraza PA-C Work Phone: Pulmonary Medicine Procedures Date Procedure Procedure Detail Performing Clinician Start: 12-28-2022 INFLUENZA VACCINE, A GE 6 MO - 64 YR, QUADRIVALENT (AFLURIA, FLULAVAL, FLUZONE) Paige Ballard REFRIGERATION OPERATOR.CYBER SECURITY MANAGER Work Phone: Start: 11-09-2022 Nitric oxide gas determination Jaimie Castillo MD Work Phone: Start: 09-23-2022 Nitric oxide gas determination Jaimie Castillo MD Work Phone: Start: 09-15-2022 Brncdilat rspse spmt ry pre&post-brncdilat admn Britt Engel REFRIGERATION OPERATOR.BIRD TENDER Work Phone: Start: 08-29-2022 STREP A MOLECULAR (POC) Paige Ballard REFRIGERATION OPERATOR.CYBER SECURITY MANAGER Work Phone: section GAURI MARIA MD Cholecystectomy GAURI Person MD Umbilical hernia (disorder) GAURI MADERA MD Plan of Treatment Date Care Activity Detail Author Start: 08-30-2027 Urine microalbumin profile [facility] Start: 02-10-2024 Annual PCP Team Germ Drier karlee Disease Visit Annual PCP Team Chronic Disease Visit [facility] Start: 12-29-2023 Annual PCP Team Germ Drier karlee Disease Visit Annual PCP Team Chronic Disease Visit [facility] Start: 12-29-2023 Covid-19 Vaccine ( season) Covid-19 Vaccine ( season) [facility] Immunizations Immunization Date Immunization Notes Care Provider Fa bella 12-28-2022 influenza, injectabl e, quadrivalent, contains preservative Paige Lucy REFRIGERATION OPERATOR.CYBER SECURITY MANAGER Work Phone: [facility] 01-25-2018 influenza, seasonal, injectable, preservative free Lili Goddard MD Work Phone: [facility] Work Phone: 01-25-2018 influenza virus vaccine, unspecified formulation Pulm Wstr Work Phone: [facility] 08-29-2017 diphtheria, tetanus toxoids and acellular pertussis vaccine, unspecified formulation Lili Goddard MD Work Phone: [facility] Work Phone: 08-29-2017 tetanus toxoid, redu nu diphtheria toxoid, and acellular pertussis vaccine, adsorbed Lili Goddard MD Work Phone: [facility] Work Phone: 05-12-2016 tetanus toxoid, redu nu diphtheria toxoid, and acellular pertussis vaccine, adsorbed Lili Goddard MD Work Phone: [facility] 04-27-2016 RHO(D) immune globul in- IV or IM Lili Goddard MD Work Phone: [facility] Work Phone: 04-27-2016 tetanus toxoid, redu nu diphtheria toxoid, and acellular pertussis vaccine, adsorbed Lili Goddard MD Work Phone: [facility] Work Phone: 03-16-2016 tetanus toxoid, redu nu diphtheria toxoid, and acellular pertussis vaccine, adsorbed Lili Goddard MD Work Phone: [facility] Work Phone: 12-22-2015 influenza, seasonal, injectable, preservative free Lili Goddard MD Work Phone: [facility] Work Phone: 02-24-2015 RHO(D) immune globul in- IV or IM Lili Goddard MD Work Phone: [facility] Work Phone: 02-24-2015 tetanus toxoid, redu nu diphtheria toxoid, and acellular pertussis vaccine, adsorbed Lili Goddard MD Work Phone: [facility] 11-28-2014 influenza, injectabl e, quadrivalent, contains preservative Lili Goddard MD Work Phone: [facility] 06-11-2001 measles, mumps and rubella virus vaccine Lili Goddard MD Work Phone: [facility] Work Phone: 11-23-1993 diphtheria, tetanus toxoids and acellular pertussis vaccine Lili Goddard MD Work Phone: [facility] Work Phone: 11-23-1993 poliovirus vaccine, inactivated Lili Goddard MD Work Phone: [facility] Work Phone: 05-22-1990 diphtheria, tetanus toxoids and acellular pertussis vaccine Lili Goddard MD Work Phone: [facility] Work Phone: 05-22-1990 poliovirus vaccine, inactivated Lili Goddard MD Work Phone: [facility] Work Phone: 02-01-1990 haemophilus influenz ae type b vaccine, HbOC conjugate Lili Goddard MD Work Phone: [facility] Work Phone: 02-01-1990 measles, mumps and rubella virus vaccine Lili Goddard MD Work Phone: [facility] Work Phone: 06-16-1989 diphtheria, tetanus toxoids and acellular pertussis vaccine Lili Goddard MD Work Phone: [facility] Work Phone: 05-16-1989 diphtheria, tetanus toxoids and acellular pertussis vaccine Lili Goddard MD Work Phone: [facility] Work Phone: 05-16-1989 poliovirus vaccine, inactivated Lili Goddard MD Work Phone: [facility] Work Phone: 1988 diphtheria, tetanus toxoids and acellular pertussis vaccine Lili Goddard MD Work Phone: [facility] Work Phone: 1988 poliovirus vaccine, inactivated Lili Goddard MD Work Phone: [facility] Work Phone: Payers Date Payer Category Payer Medicaid [employer] [id number] 2022-Present [phone] [address] [place] [address] Medicaid [id number] 2022 Unknown [id number] 1988 Unknown [id number] Unknown [id number] Social History Date Type Detail Facility Start: 05-31-2022 End: 09-23-2022 Tobacco smoking status NHIS Ex-smoker [facility] End: 05-21-2014 History of tobacco use Current smoker [facility] End: 05-21-2014 History of tobacco use Cigarette Smoker [facility] Start: 05-31-2022 End: 09-23-2022 Tobacco use and exposure Smokeless tobacco non-user [facility] Start: 07-29-2022 End: 02-06-2023 Alcohol intake Current drinker of alcohol (finding) [facility] Start: 07-29-2022 History SDOH Alcohol Frequency 1 [facility] Start: 07-29-2022 History SDOH Alcohol Std Drinks 0 [facility] Start: 07-29-2022 History SDOH Social Connections Phone 5 [facility] Start: 07-29-2022 History SDOH Social Connections Membership 2 [facility] Start: 07-29-2022 History SDOH Social Connections Living 7 [facility] Start: 07-29-2022 History SDOH Physical Activity DPW 3 [facility] Start: 07-29-2022 History SDOH Physical Activity MPS 10 [facility] Start: 05-31-2022 Tobacco Comment vaps while at work [facility] Start: 04-18-2018 Alcohol Comment occasionally [facility] Start: 1990 Sex Assigned At Not on file [facility] Start: 07-29-2022 End: 04-04-2023 History of Social function [facility] Start: 07-29-2022 End: 04-04-2023 Social connection and isolation panel [facility] Do you belong to any clubs or organizations such as gnosticist groups, unions, fraternal or athletic groups, or school groups? No [facility] Are you now , , , , never or living with a partner? Never [facility] How often to you hav e a drink containing alcohol? Never [facility] How many standard dr inks containing alcohol do you have on a typical day? Patient does not drink [facility] Do you feel stress - tense, restless, nervous, or anxious, or unable to sleep at night because your mind is troubled all the time - these days [OSQ] Not at all [facility] (I/We) worried wheth er (my/our) food would run out before (I/we) got money to buy more. Never true [facility] Tobacco Nicotine Use: va pe. Exposure to Tobacco Smoke quit 2 months ago. [facility] Sex Assigned At Sex [facility] Start: 04-04-2023 Alcohol intake Ex-drinker (finding) [facility] Functional Status Date Assessment Result Facility 09-21-2022 Functional Status Up ad laurent Rosalind Obed swann [facility] 09-21-2022 Functional Status Standard Safet y ID band on, Allergy Band on, Call device within reach, Bed in low position, Wheels locked [facility] Mental Status Date Assessment Result Facility 09-21-2022 Mental Status Orientation Oriented x 4 [facility] 09-21-2022 [facility] Clinical Notes 05-24-2016 to 04-04-2023 Thelma Barraza PA-C - 04/04/2023 2:47 PM ESTPatient InstructionsPaige Ballard APRN.MARILYNN - 02/09/2023 11:55 AM ESTTelephone Encounter - Paige Ballard APRN.CYBER SECURITY MANAGER - 01/05/2023 12:32 PM EST Note Date & Type Note Facility 04-04-2023 Note HNO ID: [id number] Author: THELMA BARRAZA PA-C Service: ? Author Type: Physician Hazmat Truck Driver Type: Progress Notes Filed: 04/04/2023 16:22 Note Text: Patient: Ceasar Jaquez PCP: Lili Goddard MD CC: follow up HPI: Ceasar Jaquez 32 year old obese female former minimal smoker and former vaping use with PMH significant for PCOS, recurrent tonsilitis, seasonal allergies, and mild persistent asthma. Current maintenance therapy with Dulera, Singulair, and as needed Albuterol. Today, patient denies significant cough, sputum production or wheezing. She has exertional dyspnea with climbing stairs, carrying laundry/groceries, and bending over. No nocturnal awakenings. Notes lower extremity edema. Patient had home sleep study that was inconclusive. Will obtain in lab study. 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 1 tablet twice daily VENTOLIN HFA 90 mcg/actuation inhaler INHALE 2 PUFFS EVERY 4 TO 6 HOURS NEEDED mometasone-formoterol (DULERA) 200-5 mcg/actuation inhaler Inhale 2 Puffs as instructed two times a day. FLUoxetine (PROZAC) 10 mg capsule Take 1 capsule by mouth once daily. buPROPion (WELLBUTRIN) 75 mg tablet Take 1 tablet by mouth two times a day. montelukast (SINGULAIR) 10 mg tablet Take 1 tablet by mouth daily at bedtime. Social History Tobacco Use Smoking status: Former Packs/day: 1.00 Years: 4.00 Additional pack years: 0.00 Total pack years: 4.00 Types: Cigarettes Quit date: 05/2014 Years since quittin.8 Smokeless tobacco: Never Tobacco comments: vaps while at work Vaping Use Vaping Use: current everyday user Substances: Nicotine Substance Use Topics Alcohol use: Yes Comment: occasionally Drug use: No Dog who sleeps in bedroom. Family History Problem Relation Age of Onset Seizures Father Arthritis Maternal Grandmother Thyroid Maternal Grandmother Diabetes Maternal Grandfather Heart Maternal Grandfather Asthma No Family History PAST SURGICAL HISTORY Procedure Laterality Date DELIVERY ONLY 07/12/2016 SECTION HX CHOLECYSTECTOMY W/CHOLANGIOGRAPHY N/A 03/09/2018 HERNIA REPAIR HX HYSTEROSCOPY NEETU STERILIZATION Bilateral 2017 I reviewed the past medical history, family history, social history and surgical history with changes noted above and updated in EMR. IMMUNIZATIONS Prevnar - xx Pneumovax 23 - xx Influenza - 12/28/2022 COVID-19 - most recent 11/2021 ROS: CONSTITUTIONAL: No fevers, chills, nightsweats, unintended weight loss HEENT: Seasonal nasal congestion/sinus symptoms. EYES: No diplopia or blurry vision. CARDIOVASCULAR: No chest pain, palpitations, orthopnea, PND. PULM: See HPI GI: No dysphagia/odynophagia, problematic reflux MUSC-SKEL: No joint pain, swelling, or erythema. INTEGUMENTARY: No new skin changes, rashes or history of eczema. PHYSICAL EXAMINATION: BP 110/68 (BP Site: Right Arm, BP Position: Sitting, BP Cuff Size: Large Adult) Pulse 90 Resp 14 Ht 160 cm (5' 3 ) Wt 98.2 kg (216 lb 9.6 oz) LMP 02/28/2023 (Approximate) SpO2 97% BMI 38.37 kg/m? Gen: No acute distress. Cooperative with examination. Obese. HEENT: Normocephalic. Sclera, conjunctiva clear. Oral hygeine and dentition good. No thrush. Resp: No stridor, accessory respiratory muscle use, supra-sternal or intercostal retractions. No wheezes, crackles. CV: Regular rythm. Heart tones normal. Radial pulses normal. MSK: No kyphoscoliosis. Ext: Warm and well perfused. No clubbing, cyanosis, edema. Skin: No rash, ecchymoses. Neuro: Mental status normal. Affect normal. No tremor. DATA: Exhaled nitric oxide (Osiel), 02/06/2023: 33 11/09/2022 36.0 (A) 09/23/2022 71.0 (A) PFT 09/15/22: Review of spirometry shows mild obstruction Labs Component Latest Ref Rng AND Units 09/23/2022 [place] IgE <0.35 kU/l <0.35 [place] Class Class 0 Class 0 [id number] [place] <0.35 kU/l 8.34 (H) [place] Class Class 0 Class 3 (A) [place] IgE <0.35 kU/l 15.20 (H) [place] Class Class 0 Class 3 (A) Short Ragweed IgE <0.35 kU/l 2.91 (H) Short Ragweed Class Class 0 Class 2 (A) [place] IgE <0.35 kU/l <0.35 [place] Class Class 0 Class 0 Cat Dander IgE <0.35 kU/l 13.90 (H) Cat Dander Class Class 0 Class 3 (A) Dog Dander IgE <0.35 kU/l 52.40 (H) Dog Dander Class Class 0 Class 5 (A) Cladosporium herbarum IgE <0.35 kU/l <0.35 Cladosporium herbarum Class Class 0 Class 0 Alterna (more content not included)... [facility] 04-04-2023 History of Presen t illness Narrative Images from the original note were not included. Patient: Ceasar Jaquez PCP: Lili Goddard MD CC: follow up HPI: Ceasar Jaquez 32 year old obese female former minimal smoker and former vaping use with PMH significant for PCOS, recurrent tonsilitis, seasonal allergies, and mild persistent asthma. Current maintenance therapy with Dulera, Singulair, and as needed Albuterol. Today, patient denies significant cough, sputum production or wheezing. She has exertional dyspnea with climbing stairs, carrying laundry/groceries, and bending over. No nocturnal awakenings. Notes lower extremity edema. Patient had home sleep study that was inconclusive. Will obtain in lab study. 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 1 tablet twice daily VENTOLIN HFA 90 mcg/actuation inhaler INHALE 2 PUFFS EVERY 4 TO 6 HOURS NEEDED mometasone-formoterol (DULERA) 200-5 mcg/actuation inhaler Inhale 2 Puffs as instructed two times a day. FLUoxetine (PROZAC) 10 mg capsule Take 1 capsule by mouth once daily. buPROPion (WELLBUTRIN) 75 mg tablet Take 1 tablet by mouth two times a day. montelukast (SINGULAIR) 10 mg tablet Take 1 tablet by mouth daily at bedtime. Social History Tobacco Use Smoking status: Former Packs/day: 1.00 Years: 4.00 Additional pack years: 0.00 Total pack years: 4.00 Types: Cigarettes Quit date: 05/2014 Years since quittin.8 Smokeless tobacco: Never Tobacco comments: vaps while at work Vaping Use Vaping Use: current everyday user Substances: Nicotine Substance Use Topics Alcohol use: Yes Comment: occasionally Drug use: No Dog who sleeps in bedroom. Family History Problem Relation Age of Onset Seizures Father Arthritis Maternal Grandmother Thyroid Maternal Grandmother Diabetes Maternal Grandfather Heart Maternal Grandfather Asthma No Family History PAST SURGICAL HISTORY Procedure Laterality Date DELIVERY ONLY 07/12/2016 SECTION HX CHOLECYSTECTOMY W/CHOLANGIOGRAPHY N/A 03/09/2018 HERNIA REPAIR HX HYSTEROSCOPY NEETU STERILIZATION Bilateral 2017 I reviewed the past medical history, family history, social history and surgical history with changes noted above and updated in EMR. IMMUNIZATIONS Prevnar - xx Pneumovax 23 - xx Influenza - 12/28/2022 COVID-19 - most recent 11/2021 ROS: CONSTITUTIONAL: No fevers, chills, nightsweats, unintended weight loss HEENT: Seasonal nasal congestion/sinus symptoms. EYES: No diplopia or blurry vision. CARDIOVASCULAR: No chest pain, palpitations, orthopnea, PND. PULM: See HPI GI: No dysphagia/odynophagia, problematic reflux MUSC-SKEL: No joint pain, swelling, or erythema. INTEGUMENTARY: No new skin changes, rashes or history of eczema. PHYSICAL EXAMINATION: BP 110/68 (BP Site: Right Arm, BP Position: Sitting, BP Cuff Size: Large Adult) Pulse 90 Resp 14 Ht 160 cm (5' 3 ) Wt 98.2 kg (216 lb 9.6 oz) LMP 02/28/2023 (Approximate) SpO2 97% BMI 38.37 kg/m Gen: No acute distress. Cooperative with examination. Obese. HEENT: Normocephalic. Sclera, conjunctiva clear. Oral hygeine and dentition good. No thrush. Resp: No stridor, accessory respiratory muscle use, supra-sternal or intercostal retractions. No wheezes, crackles. CV: Regular rythm. Heart tones normal. Radial pulses normal. MSK: No kyphoscoliosis. Ext: Warm and well perfused. No clubbing, cyanosis, edema. Skin: No rash, ecchymoses. Neuro: Mental status normal. Affect normal. No tremor. DATA: Exhaled nitric oxide (Osiel), 02/06/2023: 33 11/09/2022 36.0 (A) 09/23/2022 71.0 (A) PFT 09/15/22: Review of spirometry shows mild obstruction Labs Component Latest Ref Rng & Units 09/23/2022 [place] IgE <0.35 kU/l <0.35 [place] Class Class 0 Class 0 [id number] [place] <0.35 kU/l 8.34 (H) [place] Class Class 0 Class 3 (A) [place] IgE <0.35 kU/l 15.20 (H) [place] Class Class 0 Class 3 (A) Short Ragweed IgE <0.35 kU/l 2.91 (H) Short Ragweed Class Class 0 Class 2 (A) [place] IgE <0.35 kU/l <0.35 [place] Class Class 0 Class 0 Cat Dander IgE <0.35 kU/l 13.90 (H) Cat Dander Class Class 0 Class 3 (A) Dog Dander IgE <0.35 kU/l 52.40 (H) Dog Dander Class Class 0 Class 5 (A) Cladosporium herbarum IgE <0.35 kU/l <0.35 Cladosporium herbarum Class Class 0 Class 0 Alternaria tenuis IgE <0.35 kU/l <0.35 Alternaria tenuis Class Class 0 Class 0 D. farinae IgE <0.35 kU/l 1.86 (H) D. farinae Class Class 0 Class 2 (A) IgE <114.0 kU/l 134.0 (H) Component Latest Ref Rng & Units 02/06/2023 IgE <114.0 kU/l 109.0 HSAT, 03/07/2023 IMPRESSION/RECOMMENDATIONS: 1. This study neither confirms nor refutes a diagnosis of obstructive sleep apnea as HSAT does not measure certain types of respiratory events that can only be measured on an in-laboratory polysomnogram 2. Recommend an in-laboratory polysomnogram if sleep apnea remains highly suspected. ASSESSMENT/PLAN: 1. Mild persistent asthma without complication - ICD9: 493.90, ICD10: J45.30 (primary diagnosis) Continue Dulera 2 inhalations twice daily. Rinse mouth after each use to help prevent oral thrush. Continue Singulair nightly. Albuterol HFA inhaler, 2 inhalations 10-15 minutes prior to activities associated with shortness of breath, and as needed for rescue relief of shortness of breath or wheezing, up to 4 times daily. Most recent IgE normal. 2. Seasonal allergic rhinitis due to other allergic trigger - ICD9: 477.8, ICD10: J30.89 Avoidance of triggers. 3. Observed sleep apnea - ICD9: 780.57, ICD10: G47.30 Will obtain an in-lab PSG. Patient prefers to stay local and will send order to [facility]. Portions of this documentation were copied and pasted from previous office visit notes in order to provide a cohesive continuity of the history. The note has been reviewed and edited and updated as necessary. Thelma Barraza PA-C documented in this encounter [facility] 02-09-2023 Note HNO ID: [id number] Author: Paige Ballard APRN.CYBER SECURITY MANAGER Service: ? Author Type: Nurse Practitioner Type: Progress Notes Filed: 02/09/2023 12:31 PM Note Text: Chief Complaint Patient presents with: Recheck: Medication follow up HPI Ceasar Jaquez is a 32 year old female who presents here today for ADD follow-up. Was on methylphenidate as a child and tolerated this well. Was started on wellbutrin 4-6 weeks ago after getting depression and anxiety under control with fluoxetine. Wellbutrin caused severe migraine so had to stop taking this. Sleep: is described as normal Alcohol use: does not drink any alcohol Drug use: No Appetite: good Stresses: work is monitoring her closely because of her inability to complete projects. Suicidal Thoughts: No suicidal ideation, intent or plan REVIEW OF SYSTEMS General: no fevers, no chills, no night sweats, no recurrent infections, no change in appetite, no change in energy, and no significant changes in weight Respiratory: no cough, no wheezing, no shortness of breath, no hemoptysis Cardiovascular: no chest pain, no chest pressure, no palpitations, and no swelling Neurologic: No headache, weakness, numbness, tingling, neck stiffness, tremor, vertigo, dizziness, memory loss, syncope. PAST MEDICAL HISTORY Diagnosis Date Carpal tunnel syndrome of right wrist 08/01/2018 Mild per EMG study fracture small finger right hand Infertility, female attempting since age 16 Mild persistent asthma without complication 09/23/2022 PCO (polycystic ovaries) Post depression 05/05/2015 Seizure (HCC) 01/2016 possible seizure during PAST SURGICAL HISTORY Procedure Laterality Date DELIVERY ONLY 07/12/2016 SECTION HX CHOLECYSTECTOMY W/CHOLANGIOGRAPHY N/A 03/09/2018 HERNIA REPAIR HX HYSTEROSCOPY NEETU STERILIZATION Bilateral 2017 ALLERGIES Naproxen and Penicillins MEDICATIONS VENTOLIN HFA 90 mcg/actuation inhaler INHALE 2 PUFFS EVERY 4 TO 6 HOURS NEEDED mometasone-formoterol (DULERA) 200-5 mcg/actuation inhaler Inhale 2 Puffs as instructed two times a day. FLUoxetine (PROZAC) 10 mg capsule Take 1 capsule by mouth once daily. buPROPion (WELLBUTRIN) 75 mg tablet Take 1 tablet by mouth two times a day. montelukast (SINGULAIR) 10 mg tablet Take 1 tablet by mouth daily at bedtime. FAMILY HISTORY Problem Relation Age of Onset Seizures Father Arthritis Maternal Grandmother Thyroid Maternal Grandmother Diabetes Maternal Grandfather Heart Maternal Grandfather Asthma No Family History Social History Tobacco Use Smoking status: Former Packs/day: 1.00 Years: 4.00 Additional pack years: 0.00 Total pack years: 4.00 Types: Cigarettes Quit date: 05/2014 Years since quittin.7 Smokeless tobacco: Never Tobacco comments: vaps while at work Vaping Use Vaping Use: current everyday user Substances: Nicotine Substance Use Topics Alcohol use: Yes Comment: occasionally Drug use: No PHYSICAL EXAM BP 118/68 Pulse 84 Resp 16 Wt 96.2 kg (212 lb) LMP 05/31/2022 SpO2 99% BMI 37.55 kg/m? Appearance: well dressed well groomed, cooperative, and pleasant Behavior: good eye contact Speech: fluent and coherent Mood: happy Affect: appropriate Perceptions: none Thought process: normal Thought Content: normal Intelligence level: normal Insight: good Judgment: good Eyes: conjunctiva pink and moist, no icterus, sclera white, non-injected Lungs: Lungs clear to auscultation. No wheezing, rhonchi, rales. Heart: RRR without murmur, gallop, or rubs. No ectopy ASSESSMENT/PLAN: 1. Attention deficit disorder (ADD) in adult - ICD9: 314.00, ICD10: F98.8 Did not tolerate Wellbutrin. Trying low dose methylphenidate. If tolerated, would like to initiate ER 10mg once a day. Patient to message in a few weeks to update - METHYLPHENIDATE 10 MG TABLET PDMP website checked and validated. All prescriptions have been APPROPRIATELY filled. No suspicious activity was identified. 02/09/2023 by Paige Ballard APRN.CNP Prescription instructions reviewed with patient as applicable. Potential red flag symptoms discussed with the patient. Reviewed appropriate action plan to take if red flag symptoms occur. Patient agreeable to treatment plan Paige Ballard APRN.CNP [facility] 02-09-2023 Instructions Paige Ballard APRN.CNP - 02/09/2023 12:07 PM EST Message me in 2-3 weeks if tolerating 10mg twice a day and I will order extended release documented in this encounter [facility] 02-09-2023 History of Presen t illness Narrative Chief Complaint Patient presents with: Recheck: Medication follow up HPI Ceasar Jaquez is a 32 year old female who presents here today for ADD follow-up. Was on methylphenidate as a child and tolerated this well. Was started on wellbutrin 4-6 weeks ago after getting depression and anxiety under control with fluoxetine. Wellbutrin caused severe migraine so had to stop taking this. Sleep: is described as normal Alcohol use: does not drink any alcohol Drug use: No Appetite: good Stresses: work is monitoring her closely because of her inability to complete projects. Suicidal Thoughts: No suicidal ideation, intent or plan REVIEW OF SYSTEMS General: no fevers, no chills, no night sweats, no recurrent infections, no change in appetite, no change in energy, and no significant changes in weight Respiratory: no cough, no wheezing, no shortness of breath, no hemoptysis Cardiovascular: no chest pain, no chest pressure, no palpitations, and no swelling Neurologic: No headache, weakness, numbness, tingling, neck stiffness, tremor, vertigo, dizziness, memory loss, syncope. PAST MEDICAL HISTORY Diagnosis Date Carpal tunnel syndrome of right wrist 08/01/2018 Mild per EMG study fracture small finger right hand Infertility, female attempting since age 16 Mild persistent asthma without complication 09/23/2022 PCO (polycystic ovaries) Post depression 05/05/2015 Seizure (HCC) 01/2016 possible seizure during PAST SURGICAL HISTORY Procedure Laterality Date DELIVERY ONLY 07/12/2016 SECTION HX CHOLECYSTECTOMY W/CHOLANGIOGRAPHY N/A 03/09/2018 HERNIA REPAIR HX HYSTEROSCOPY NEETU STERILIZATION Bilateral 2017 ALLERGIES Naproxen and Penicillins MEDICATIONS VENTOLIN HFA 90 mcg/actuation inhaler INHALE 2 PUFFS EVERY 4 TO 6 HOURS NEEDED mometasone-formoterol (DULERA) 200-5 mcg/actuation inhaler Inhale 2 Puffs as instructed two times a day. FLUoxetine (PROZAC) 10 mg capsule Take 1 capsule by mouth once daily. buPROPion (WELLBUTRIN) 75 mg tablet Take 1 tablet by mouth two times a day. montelukast (SINGULAIR) 10 mg tablet Take 1 tablet by mouth daily at bedtime. FAMILY HISTORY Problem Relation Age of Onset Seizures Father Arthritis Maternal Grandmother Thyroid Maternal Grandmother Diabetes Maternal Grandfather Heart Maternal Grandfather Asthma No Family History Social History Tobacco Use Smoking status: Former Packs/day: 1.00 Years: 4.00 Additional pack years: 0.00 Total pack years: 4.00 Types: Cigarettes Quit date: 05/2014 Years since quittin.7 Smokeless tobacco: Never Tobacco comments: vaps while at work Vaping Use Vaping Use: current everyday user Substances: Nicotine Substance Use Topics Alcohol use: Yes Comment: occasionally Drug use: No PHYSICAL EXAM BP 118/68 Pulse 84 Resp 16 Wt 96.2 kg (212 lb) LMP 05/31/2022 SpO2 99% BMI 37.55 kg/m Appearance: well dressed well groomed, cooperative, and pleasant Behavior: good eye contact Speech: fluent and coherent Mood: happy Affect: appropriate Perceptions: none Thought process: normal Thought Content: normal Intelligence level: normal Insight: good Judgment: good Eyes: conjunctiva pink and moist, no icterus, sclera white, non-injected Lungs: Lungs clear to auscultation. No wheezing, rhonchi, rales. Heart: RRR without murmur, gallop, or rubs. No ectopy ASSESSMENT/PLAN: 1. Attention deficit disorder (ADD) in adult - ICD9: 314.00, ICD10: F98.8 Did not tolerate Wellbutrin. Trying low dose methylphenidate. If tolerated, would like to initiate ER 10mg once a day. Patient to message in a few weeks to update - METHYLPHENIDATE 10 MG TABLET PDMP website checked and validated. All prescriptions have been APPROPRIATELY filled. No suspicious activity was identified. 02/09/2023 by Paige Ballard APRN.CYBER SECURITY MANAGER Prescription instructions reviewed with patient as applicable. Potential red flag symptoms discussed with the patient. Reviewed appropriate action plan to take if red flag symptoms occur. Patient agreeable to treatment plan Paige Ballard APRN.CNP documented in this encounter [facility] 02-06-2023 Note HNO ID: [id number] Author: Thelma Barraza PA-C Service: ? Author Type: Physician Hazmat Truck Driver Type: Progress Notes Filed: 02/06/2023 11:14 AM Note Text: Patient: Ceasar Jqauez PCP: Lili Goddard MD CC: follow up HPI: Ceasar Jaquez 32 year obese female former minimal smoker and former vaping use with PMH significant for PCOS, recurrent tonsilitis, seasonal allergies, and mild persistent asthma. Current maintenance therapy with high dose Advair, Singulair, and as needed Albuterol. Today, patient states I need to get shots for my allergies . She is not tolerating the powder of the Advair. Denies significant cough, wheezing, SOB or chest pain/tightness. She complains primarily of allergy symptoms. She has a dog who sleeps in bedroom. Singulair does not seem to be helpful. No nocturnal awakenings. However, patient reports that her partner has noticed she stops breathing during the night. She wakes up feeling tired. PAST MEDICAL HISTORY Diagnosis Date Carpal tunnel syndrome of right wrist 08/01/2018 Mild per EMG study fracture small finger right hand Infertility, female attempting since age 16 Mild persistent asthma without complication 09/23/2022 PCO (polycystic ovaries) Post depression 05/05/2015 Seizure ([facility]) 01/2016 possible seizure during Allergies: Naproxen Rash Penicillins Hives FLUoxetine (PROZAC) 10 mg capsule Take 1 capsule by mouth once daily. buPROPion (WELLBUTRIN) 75 mg tablet Take 1 tablet by mouth two times a day. montelukast (SINGULAIR) 10 mg tablet Take 1 tablet by mouth daily at bedtime. fluticasone-salmeterol (ADVAIR DISKUS) 500-50 mcg/dose dsdv Inhale 1 Puff as instructed twice daily. VENTOLIN HFA 90 mcg/actuation inhaler INHALE 2 PUFFS EVERY 4 TO 6 HOURS NEEDED Social History Tobacco Use Smoking status: Former Packs/day: 1.00 Years: 4.00 Additional pack years: 0.00 Total pack years: 4.00 Types: Cigarettes Quit date: 05/2014 Years since quittin.7 Smokeless tobacco: Never Tobacco comments: vaps while at work Vaping Use Vaping Use: current everyday user Substances: Nicotine Substance Use Topics Alcohol use: Yes Comment: occasionally Drug use: No Family History Problem Relation Age of Onset Seizures Father Arthritis Maternal Grandmother Thyroid Maternal Grandmother Diabetes Maternal Grandfather Heart Maternal Grandfather Asthma No Family History PAST SURGICAL HISTORY Procedure Laterality Date DELIVERY ONLY 07/12/2016 SECTION HX CHOLECYSTECTOMY W/CHOLANGIOGRAPHY N/A 03/09/2018 HERNIA REPAIR HX HYSTEROSCOPY NEETU STERILIZATION Bilateral 2017 I reviewed the past medical history, family history, social history and surgical history with changes noted above and updated in EMR. IMMUNIZATIONS Prevnar - xx Pneumovax 23 - xx Influenza - 12/28/2022 COVID-19 - most recent 11/2021 ROS: CONSTITUTIONAL: No fevers, chills, nightsweats, unintended weight loss HEENT: Seasonal nasal congestion/sinus symptoms. EYES: No diplopia or blurry vision. Itchy eyes CARDIOVASCULAR: No chest pain, palpitations, orthopnea, PND. PULM: See HPI GI: No dysphagia/odynophagia, problematic reflux MUSC-SKEL: No joint pain, swelling, or erythema. INTEGUMENTARY: No new skin changes, rashes or history of eczema. PHYSICAL EXAMINATION: BP (P) 112/74 Pulse (P) 83 Resp (P) 14 Wt 95.3 kg (210 lb) LMP 05/31/2022 SpO2 (P) 97% BMI 37.20 kg/m? Gen: No acute distress. Cooperative with examination. HEENT: Normocephalic. Sclera, conjunctiva clear. Oral hygeine and dentition good. No thrush. Resp: No stridor, accessory respiratory muscle use, supra-sternal or intercostal retractions. No wheezes, crackles. CV: Regular rythm. Heart tones normal. Radial pulses normal. MSK: No kyphoscoliosis. Ext: Warm and well perfused. No clubbing, cyanosis, edema. Skin: No rash, ecchymoses. Neuro: Mental status normal. Affect normal. No tremor. DATA: Exhaled nitric oxide (Osiel), 02/06/2023: 33 11/09/2022 36.0 (A) 09/23/2022 71.0 (A) PFT 09/15/22: Review of spirometry shows mild obstruction Labs Component Latest Ref Rng AND Units 09/23/2022 [place] IgE <0.35 kU/l <0.35 [place] Class Class 0 Class 0 [id number] [place] <0.35 kU/l 8.34 (H) [place] Class Class 0 Class 3 (A) [place] IgE <0.35 kU/l 15.20 (H) [place] Class Class 0 Class 3 (A) Short Ragweed IgE <0.35 kU/l 2.91 (H) Short Ragweed Class Class 0 Class 2 (A) [place] IgE <0.35 kU/l <0.35 [place] Class Class 0 Class 0 Cat Dander IgE <0.35 kU/l 13.90 (H) Cat [place]ander Class Class 0 Class 3 (A) Dog Dander IgE <0.35 kU/l 52.40 (H) Dog Dander Class Class 0 Class 5 (A) Cladosporium herbarum IgE <0.35 kU/l <0.35 Cladosporium herbarum Class Class 0 Class 0 Alternaria tenuis IgE <0.35 kU/l <0.35 Alternaria tenuis Class Class 0 Class 0 D. (more content not included)... [facility] 02-06-2023 Note HNO ID: [id number] Author: Cleo Leach RPFT Service: ? Author Type: Respiratory Therapist Type: Procedures Filed: 02/06/2023 8:51 AM Note Text: RESPIRATORY THERAPY ORAL EXHALED NITRIC OXIDE SERVICE DATE: 02/06/2023 SERVICE TIME: 8:51 AM Oral Exhaled Nitric Oxide measurement: 33.0 (ppb) Normal: Adult 5-20 ppb, pediatric (<12 years) 5-15 ppb High Normal / Increased: Adult 20-35 ppb, pediatric (<12 years) 15-25 ppb Moderately raised exhaled Nitric Oxide may indicate underlying inflammation, but note that: Cold and influenza can raise exhaled Nitric Oxide and some patients have higher baseline exhaled Nitric Oxide levels than others. High: Adult >35 ppb, pediatric (<12 years) >25 ppb Indicative of ongoing eosinophilic inflammation. Symptomatic patient likely to respond to steroids. Possible causes (if already on steroids): Poor compliance, recent allergen exposure, steroid dose inadequate, and steroid resistance. Note that not all patients with high exhaled nitric oxide levels display symptoms. Oral Exhaled Nitric Oxide measurement (Previous Encounters) Test Date Oral Exhaled Nitric Oxide (ppb) 02/06/2023 33.0 11/09/2022 36.0 (A) 09/23/2022 71.0 (A) NAME: KANIKA Lopez PATIENT NAME: Ceasar Jaquez DATE: February 06, 2023 TIME: 8:51 AM [facility] 02-06-2023 Note HNO ID: [id number] Author: Cleo Leach RPFT Service: ? Author Type: Respiratory Therapist Type: Progress Notes Filed: 02/06/2023 8:51 AM Note Text: PULM FUNCTION SMARTBLOCK: Provider: Thelma Barraza PA-C Assisting Tech: Cleo Leach RPFT Exhaled Nitric Oxide: 1 [facility] 01-05-2023 Miscellaneous Notes Noted. Will discuss other options at follow up. Thank you Paige Ballard APRN.MARILYNN Spoke with patient, stopped the medication the day she called and symptoms went away. Patient has follow up in Jan. Needs to stop the wellbutrin and see if symptoms subside. Could be from new med or possibly start of illness. Thank you Piage Ballard APRN.MARILYNN Seen by Claudia in office 12/28/22 & started taking wellbutrin the following day. Pt states after the 2nd day of med she had a headache that has gotten worse, states it is a pounding headache. Reports she is lightheaded & doesn't feel like herself. Pt states she took one dose today but isnt taking another one. Please advise. Pt uses [facility] in [place]. Elle Lawrence LPN documented in this encounter [facility] 12-28-2022 Note HNO ID: [id number] Author: Paige Ballard APRN.CYBER SECURITY MANAGER Service: ? Author Type: Nurse Practitioner Type: Progress Notes Filed: 12/28/2022 3:52 PM Note Text: Chief Complaint Patient presents with: Recheck: Follow up HPI Ceasar Jaquez is a 32 year old female who presents here today for anxiety, depression, and attention follow-up. Patient was seen 4 weeks ago and started on fluoxetine. Patient reports significant improvement in depression and anxiety. Mood is stable with not being as irritable, anxious, or always tearful. Side effects: None Denies suicidal thoughts or plan. Sleep: is described as normal Alcohol use: does not drink any alcohol Drug use: No Appetite: good Stresses: Denies any major stressor. Support: Comes from multiple sources including boyfriend Counseling: no History of ADD and was on adderall but stopped when she graduated in 2007. Is having trouble completing tasks and is having her work affected by this and being watched. Has been on wellbutrin many years ago but unsure if she had side effects from this. 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 montelukast (SINGULAIR) 10 mg tablet Take 1 tablet by mouth daily at bedtime. fluticasone-salmeterol (ADVAIR DISKUS) 500-50 mcg/dose dsdv Inhale 1 Puff as instructed twice daily. VENTOLIN HFA 90 mcg/actuation inhaler INHALE 2 PUFFS EVERY 4 TO 6 HOURS NEEDED FAMILY HISTORY Problem Relation Age of Onset Seizures Father Arthritis Maternal Grandmother Thyroid Maternal Grandmother Diabetes Maternal Grandfather Heart Maternal Grandfather Asthma No Family History Social History Tobacco Use Smoking status: Former Packs/day: 1.00 Years: 4.00 Additional pack years: 0.00 Total pack years: 4.00 Types: Cigarettes Quit date: 05/2014 Years since quittin.6 Smokeless tobacco: Never Tobacco comments: vaps while at work Vaping Use Vaping Use: current everyday user Substances: Nicotine Substance Use Topics Alcohol use: Yes Comment: occasionally Drug use: No PHYSICAL EXAM BP 118/78 Pulse 80 Resp 16 Wt 92.1 kg (203 lb) LMP 05/31/2022 BMI 35.96 kg/m? Appearance: well dressed well groomed, cooperative, and pleasant Behavior: good eye contact Speech: normal and fluent and coherent Mood: happy Affect: appropriate Perceptions: none Thought process: normal Thought Content: normal Intelligence level: normal Insight: good Judgment: good ASSESSMENT/PLAN: 1. Anxiety and depression - ICD9: 300.00, 311, ICD10: F41.9, F32.A (primary diagnosis) -much improvement - will get ADD improved and then recheck PHQ9 and GAD7 - adding wellbutrin for attention concerns but discussed with patient of concerns of lit increasing anxiety. Also as she is unsure what happened when she took it years ago, will start with 75g BID, patient to take only 1 time daily for 3-5 days and increase if tolerated. - Reviewed concept of neurochemical imbalance wth depression/anxiety, treatment options and benefits of counseling in combination with medication. Also reviewed benefits of sleep hygeine, diet and exercise - Follow-up in 6 weeks or sooner as needed - Instructed patient to contact office or [id number] after-hours promptly should condition worsen or any new symptoms appear. - Counseling Center [facility] and after hours crisis line 2. Attention deficit disorder (ADD) in adult - ICD9: 314.00, ICD10: F98.8 As above 3. Encounter for immunization - ICD9: V03.89, ICD10: Z23 - INFLUENZA VACCINE, AGE 6 MO - 64 YR, QUADRIVALENT (AFLURIA, FLULAVAL, FLUZONE) Prescription instructions reviewed with patient as applicable. Potential red flag symptoms discussed with the patient. Reviewed appropriate action plan to take if red flag symptoms occur. Patient agreeable to treatment plan Paige Ballard APRN.[facility] 12-28-2022 History of Presen t illness Narrative Chief Complaint Patient presents with: Recheck: Follow up HPI Ceasar Jaquez is a 32 year old female who presents here today for anxiety, depression, and attention follow-up. Patient was seen 4 weeks ago and started on fluoxetine. Patient reports significant improvement in depression and anxiety. Mood is stable with not being as irritable, anxious, or always tearful. Side effects: None Denies suicidal thoughts or plan. Sleep: is described as normal Alcohol use: does not drink any alcohol Drug use: No Appetite: good Stresses: Denies any major stressor. Support: Comes from multiple sources including boyfriend Counseling: no History of ADD and was on adderall but stopped when she graduated in 2007. Is having trouble completing tasks and is having her work affected by this and being watched. Has been on wellbutrin many years ago but unsure if she had side effects from this. 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 montelukast (SINGULAIR) 10 mg tablet Take 1 tablet by mouth daily at bedtime. fluticasone-salmeterol (ADVAIR DISKUS) 500-50 mcg/dose dsdv Inhale 1 Puff as instructed twice daily. VENTOLIN HFA 90 mcg/actuation inhaler INHALE 2 PUFFS EVERY 4 TO 6 HOURS NEEDED FAMILY HISTORY Problem Relation Age of Onset Seizures Father Arthritis Maternal Grandmother Thyroid Maternal Grandmother Diabetes Maternal Grandfather Heart Maternal Grandfather Asthma No Family History Social History Tobacco Use Smoking status: Former Packs/day: 1.00 Years: 4.00 Additional pack years: 0.00 Total pack years: 4.00 Types: Cigarettes Quit date: 05/2014 Years since quittin.6 Smokeless tobacco: Never Tobacco comments: vaps while at work Vaping Use Vaping Use: current everyday user Substances: Nicotine Substance Use Topics Alcohol use: Yes Comment: occasionally Drug use: No PHYSICAL EXAM BP 118/78 Pulse 80 Resp 16 Wt 92.1 kg (203 lb) LMP 05/31/2022 BMI 35.96 kg/m Appearance: well dressed well groomed, cooperative, and pleasant Behavior: good eye contact Speech: normal and fluent and coherent Mood: happy Affect: appropriate Perceptions: none Thought process: normal Thought Content: normal Intelligence level: normal Insight: good Judgment: good ASSESSMENT/PLAN: 1. Anxiety and depression - ICD9: 300.00, 311, ICD10: F41.9, F32.A (primary diagnosis) -much improvement - will get ADD improved and then recheck PHQ9 and GAD7 - adding wellbutrin for attention concerns but discussed with patient of concerns of lit increasing anxiety. Also as she is unsure what happened when she took it years ago, will start with 75g BID, patient to take only 1 time daily for 3-5 days and increase if tolerated. - Reviewed concept of neurochemical imbalance wth depression/anxiety, treatment options and benefits of counseling in combination with medication. Also reviewed benefits of sleep hygeine, diet and exercise - Follow-up in 6 weeks or sooner as needed - Instructed patient to contact office or [id number] after-hours promptly should condition worsen or any new symptoms appear. - [facility] and after hours crisis line 2. Attention deficit disorder (ADD) in adult - ICD9: 314.00, ICD10: F98.8 As above 3. Encounter for immunization - ICD9: V03.89, ICD10: Z23 - INFLUENZA VACCINE, AGE 6 MO - 64 YR, QUADRIVALENT (AFLURIA, FLULAVAL, FLUZONE) Prescription instructions reviewed with patient as applicable. Potential red flag symptoms discussed with the patient. Reviewed appropriate action plan to take if red flag symptoms occur. Patient agreeable to treatment plan Paige Ballard APRN.CNP documented in this encounter [facility] 12-14-2022 Miscellaneous Notes Phoned patient and went over notes below from Paige Ballard LANDSCAPE ENGINEER with understanding. With her being on so many medications in the past with possibly not tolerating, I would prefer to wait 2 more weeks before adding anything as side effects can take 3-4 weeks to start. Thank you Paige Ballard APRN.CNP Patient calling said she started on Fluoxetine 10 mg and said the medication is helping her. Patient asking if she could be put on ADHD medication? She is still having problems focusing. Patient uses [facility] for her pharmacy. Please advise documented in this encounter [facility] 11-30-2022 Note HNO ID: [id number] Author: Paige Ballard APRN.CNP Service: ? Author Type: Nurse Practitioner Type: Progress Notes Filed: 12/01/2022 7:21 AM Note Text: CC: Patient presents with: Recheck: 3 month follow up HPI Ceasar Jaquez is a 32 year old female who presents today for routine follow up but is concerned with irritability and inability to concentrate. Reports she is now being watched at work because of her inability to concentrate on 1 task. For the past few months people keep saying she isn't herself. At times feels like her body doesn't want to stop when she is at work and goes back and forth from tasks. At home she is easily irritated by her children. Will flip her mood quickly where she is happy then suddenly gets very angry. This snappiness is getting worse over the last few months. Personal history of ADD. Took adderall during school but stopped after high school. Feels this is making an issue with not being able to concentrate at work. In the past 7 years has been on trazadone, sertraline, lexapro, celexa, buspar, wellbutrin and amitriptyline. Has not been on anything for 6 years and can't remember why these meds were changed. Sleep: is described as normal Alcohol use: drinks less than one drink a day Drug use: No Appetite: good Stresses: Major stressor: work and some things at home. Suicidal Thoughts: No suicidal ideation, intent or plan Support: Comes from multiple sources including boyfriend Counseling: No. Was seeing someone at [employer] but is trying to get a job there so has to find other therapist. Family mental health hx: none known REVIEW OF SYSTEMS See HPI CP PHQ9 11/30/2022 Little interest or pleasure 2 - More than half the days Feeling down, depressed, hopeless 3 - Nearly every day Trouble falling or staying asleep, sleeping too much 0 - Not at all Feeling tired, having little energy 3 - Nearly every day Poor appetite or overeating 0 - Not at all Feeling bad about yourself, failure or you have let yourself/family down 3 - Nearly every day Trouble concentrating on things 3 - Nearly every day Moving or speaking so slowly, or fidgety or restless 3 - Nearly every day Thoughts that you would be better off , or of hurting yourself in some way 0 - Not at all How difficult have these problems made things Very difficult Interpretation of Total Score 15-19 Moderately severe depression JENNIFER-7 ANXIETY SCALE 11/30/2022 FEELING NERVOUS,ANXIOUS,OR ON EDGE 3 Nearly every day NOT BEING ABLE TO STOP OR CONTROL WORRYING 3 Nearly every day WORRYING TOO MUCH ABOUT DIFFERENT THINGS 3 Nearly every day TROUBLE RELAXING 3 Nearly every day BEING SO RESTLESS THAT IT'S HARD TO SIT STILL 3 Nearly every day BEING EASILY ANNOYED OR IRRITABLE 3 Nearly every day FEELING AFRAID IF SOMETHING AWFUL MIGHT HAPPEN 3 Nearly every day GAD7 SCORE 35 IF YOU CHECKED OFF ANY PROBLEMS Very difficult PAST MEDICAL HISTORY Diagnosis Date Carpal tunnel syndrome of right wrist 08/01/2018 Mild per EMG study fracture small finger right hand Infertility, female attempting since age 16 Mild persistent asthma without complication 09/23/2022 PCO (polycystic ovaries) Post depression 05/05/2015 Seizure (HCC) 01/2016 possible seizure during PAST SURGICAL HISTORY Procedure Laterality Date DELIVERY ONLY 07/12/2016 SECTION HX CHOLECYSTECTOMY W/CHOLANGIOGRAPHY N/A 03/09/2018 HERNIA REPAIR HX HYSTEROSCOPY NEETU STERILIZATION Bilateral 2017 ALLERGIES Naproxen and Penicillins MEDICATIONS fluticasone-salmeterol (ADVAIR DISKUS) 500-50 mcg/dose dsdv Inhale 1 Puff as instructed twice daily. montelukast (SINGULAIR) 10 mg tablet Take 1 tablet by mouth daily at bedtime. VENTOLIN HFA 90 mcg/actuation inhaler INHALE 2 PUFFS EVERY 4 TO 6 HOURS NEEDED FAMILY HISTORY Problem Relation Age of Onset Seizures Father Arthritis Maternal Grandmother Thyroid Maternal Grandmother Diabetes Maternal Grandfather Heart Maternal Grandfather Asthma No Family History Social History Tobacco Use Smoking status: Former Packs/day: 1.00 Years: 4.00 Additional pack years: 0.00 Total pack years: 4.00 Types: Cigarettes Quit date: 05/2014 Years since quittin.5 Smokeless tobacco: Never Tobacco comments: vaps while at work Vaping Use Vaping Use: current everyday user Substances: Nicotine Substance Use Topics Alcohol use: Yes Comment: occasionally Drug use: No PHYSICAL EXAM BP 122/78 Pulse 92 Resp 16 Wt 91.2 kg (201 lb) LMP 05/31/2022 SpO2 99% BMI 35.61 kg/m? Appearance: well dressed well groomed, cooperative, and pleasant Behavior: good eye contact Speech: normal and fluent and coherent Mood: frustrated Affect: appropriate Perceptions: none Thought process: goal directed Thought Content: normal Intelligence level: normal Insight: good Judgment: good ASSESSMENT/PLAN: (more content not included)... [facility] 11-30-2022 History of Presen t illness Narrative CC: Patient presents with: Recheck: 3 month follow up HPI Ceasar Jaquez is a 32 year old female who presents today for routine follow up but is concerned with irritability and inability to concentrate. Reports she is now being watched at work because of her inability to concentrate on 1 task. For the past few months people keep saying she isn't herself. At times feels like her body doesn't want to stop when she is at work and goes back and forth from tasks. At home she is easily irritated by her children. Will flip her mood quickly where she is happy then suddenly gets very angry. This snappiness is getting worse over the last few months. Personal history of ADD. Took adderall during school but stopped after high school. Feels this is making an issue with not being able to concentrate at work. In the past 7 years has been on trazadone, sertraline, lexapro, celexa, buspar, wellbutrin and amitriptyline. Has not been on anything for 6 years and can't remember why these meds were changed. Sleep: is described as normal Alcohol use: drinks less than one drink a day Drug use: No Appetite: good Stresses: Major stressor: work and some things at home. Suicidal Thoughts: No suicidal ideation, intent or plan Support: Comes from multiple sources including boyfriend Counseling: No. Was seeing someone at [employer] but is trying to get a job there so has to find other therapist. Family mental health hx: none known REVIEW OF SYSTEMS See HPI CP PHQ9 11/30/2022 Little interest or pleasure 2 - More than half the days Feeling down, depressed, hopeless 3 - Nearly every day Trouble falling or staying asleep, sleeping too much 0 - Not at all Feeling tired, having little energy 3 - Nearly every day Poor appetite or overeating 0 - Not at all Feeling bad about yourself, failure or you have let yourself/family down 3 - Nearly every day Trouble concentrating on things 3 - Nearly every day Moving or speaking so slowly, or fidgety or restless 3 - Nearly every day Thoughts that you would be better off , or of hurting yourself in some way 0 - Not at all How difficult have these problems made things Very difficult Interpretation of Total Score 15-19 Moderately severe depression JENNIFER-7 ANXIETY SCALE 11/30/2022 FEELING NERVOUS,ANXIOUS,OR ON EDGE 3 Nearly every day NOT BEING ABLE TO STOP OR CONTROL WORRYING 3 Nearly every day WORRYING TOO MUCH ABOUT DIFFERENT THINGS 3 Nearly every day TROUBLE RELAXING 3 Nearly every day BEING SO RESTLESS THAT IT'S HARD TO SIT STILL 3 Nearly every day BEING EASILY ANNOYED OR IRRITABLE 3 Nearly every day FEELING AFRAID IF SOMETHING AWFUL MIGHT HAPPEN 3 Nearly every day GAD7 SCORE 35 IF YOU CHECKED OFF ANY PROBLEMS Very difficult PAST MEDICAL HISTORY Diagnosis Date Carpal tunnel syndrome of right wrist 08/01/2018 Mild per EMG study fracture small finger right hand Infertility, female attempting since age 16 Mild persistent asthma without complication 09/23/2022 PCO (polycystic ovaries) Post depression 05/05/2015 Seizure (HCC) 01/2016 possible seizure during PAST SURGICAL HISTORY Procedure Laterality Date DELIVERY ONLY 07/12/2016 SECTION HX CHOLECYSTECTOMY W/CHOLANGIOGRAPHY N/A 03/09/2018 HERNIA REPAIR HX HYSTEROSCOPY NEETU STERILIZATION Bilateral 2017 ALLERGIES Naproxen and Penicillins MEDICATIONS fluticasone-salmeterol (ADVAIR DISKUS) 500-50 mcg/dose dsdv Inhale 1 Puff as instructed twice daily. montelukast (SINGULAIR) 10 mg tablet Take 1 tablet by mouth daily at bedtime. VENTOLIN HFA 90 mcg/actuation inhaler INHALE 2 PUFFS EVERY 4 TO 6 HOURS NEEDED FAMILY HISTORY Problem Relation Age of Onset Seizures Father Arthritis Maternal Grandmother Thyroid Maternal Grandmother Diabetes Maternal Grandfather Heart Maternal Grandfather Asthma No Family History Social History Tobacco Use Smoking status: Former Packs/day: 1.00 Years: 4.00 Additional pack years: 0.00 Total pack years: 4.00 Types: Cigarettes Quit date: 05/2014 Years since quittin.5 Smokeless tobacco: Never Tobacco comments: vaps while at work Vaping Use Vaping Use: current everyday user Substances: Nicotine Substance Use Topics Alcohol use: Yes Comment: occasionally Drug use: No PHYSICAL EXAM BP 122/78 Pulse 92 Resp 16 Wt 91.2 kg (201 lb) LMP 05/31/2022 SpO2 99% BMI 35.61 kg/m Appearance: well dressed well groomed, cooperative, and pleasant Behavior: good eye contact Speech: normal and fluent and coherent Mood: frustrated Affect: appropriate Perceptions: none Thought process: goal directed Thought Content: normal Intelligence level: normal Insight: good Judgment: good ASSESSMENT/PLAN: 1. Anxiety and depression - ICD9: 300.00, 311, ICD10: F41.9, F32.A (primary diagnosis) - both uncontrolled. Patient with history of multiple medications but unsure on effectiveness or tolerance. Has not been on fluoxetine. Starting low dose and have her follow up in 4 weeks or earlier if needed. If ineffective or with side effects, she may need to see psychiatry for further evaluation - Reviewed concept of neurochemical imbalance [facility] depression/anxiety, treatment options and benefits of counseling in combination with medication. Also reviewed benefits of sleep hygeine, diet and exercise - Instructed patient to contact office or [id number] after-hours promptly should condition worsen or any new symptoms appear. - [facility] and after hours crisis line 2. Attention deficit disorder (ADD) in adult - ICD9: 314.00, ICD10: F98.8 - history of this reported by patient, has not been verified or evaluated - will get depression and anxiety improved and discuss possibly starting wellbutrin if indicated Prescription instructions reviewed with patient as applicable. Potential red flag symptoms discussed with the patient. Reviewed appropriate action plan to take if red flag symptoms occur. Patient agreeable to treatment plan Paige Ballard APRN.CNP documented in this encounter [facility] 11-09-2022 Note HNO ID: [id number] Author: Thelma Barraza PA-C Service: ? Author Type: Physician Hazmat Truck Driver Type: Progress Notes Filed: 11/09/2022 3:17 PM Note Text: Patient: Ceasar Jaquez PCP: Lili Goddard MD CC: follow up HPI: Ceasar Jaquez 32 year old obese female former minimal smoker and former vaping use with PMH significant for PCOS, recurrent tonsilitis, seasonal allergies, and mild persistent asthma. Initially evaluated by Dr. Castillo on 09/23/2022 at which time exhaled nitric oxide was 71. PFTs demonstrated mild obstruction. Patient started on Advair 500 mcg with as needed Albuterol. Allergy tests positive for cats, dogs, grass, dust mites and ragweed. Dr. Castillo sent in a script for Singulair. However, patient did not receive [employer] message and did not start Singulair. Today, patient reports that she is doing well on Advair and is using Albuterol less. Daily non-productive cough. Wheezing with new puppy. Recently rescued a dog from the animal residential. He sleeps in bedroom. No SOB or chest pain/tightness. No nocturnal awakenings. PAST MEDICAL HISTORY Diagnosis Date Carpal tunnel syndrome of right wrist 08/01/2018 Mild per EMG study fracture small finger right hand Infertility, female attempting since age 16 Mild persistent asthma without complication 09/23/2022 PCO (polycystic ovaries) Post depression 05/05/2015 Seizure (HCC) 01/2016 possible seizure during Allergies: Naproxen Rash Penicillins Hives montelukast (SINGULAIR) 10 mg tablet Take 1 tablet by mouth daily at bedtime. fluticasone-salmeterol (ADVAIR DISKUS) 500-50 mcg/dose dsdv Inhale 1 Puff as instructed twice daily. VENTOLIN HFA 90 mcg/actuation inhaler INHALE 2 PUFFS EVERY 4 TO [address] (PROTONIX) 40 mg tablet Take 1 tablet by mouth daily before breakfast. Take on empty stomach, 1/2 hr before meal. ferrous sulfate 325 mg (65 mg iron) tablet Take 1 tablet by mouth twice daily with meals. Social History Tobacco Use Smoking status: Former Packs/day: 1.00 Years: 4.00 Additional pack years: 0.00 Total pack years: 4.00 Types: Cigarettes Quit date: 05/2014 Years since quittin.4 Smokeless tobacco: Never Tobacco comments: vaps while at work Vaping Use Vaping Use: Former Substances: Nicotine Substance Use Topics Alcohol use: Yes Comment: occasionally Drug use: No Family History Problem Relation Age of Onset Seizures Father Arthritis Maternal Grandmother Thyroid Maternal Grandmother Diabetes Maternal Grandfather Heart Maternal Grandfather Asthma No Family History PAST SURGICAL HISTORY Procedure Laterality Date DELIVERY ONLY 07/12/2016 SECTION HX CHOLECYSTECTOMY W/CHOLANGIOGRAPHY N/A 03/09/2018 HERNIA REPAIR HX HYSTEROSCOPY NEETU STERILIZATION Bilateral 2017 I reviewed the past medical history, family history, social history and surgical history with changes noted above and updated in EMR. IMMUNIZATIONS Prevnar - xx Pneumovax 23 - xx Influenza - xx COVID-19 - most recent 12/17/2021 ROS: CONSTITUTIONAL: No fevers, chills, nightsweats, unintended weight loss HEENT: Seasonal nasal congestion/sinus symptoms. EYES: No diplopia or blurry vision. Itchy eyes CARDIOVASCULAR: No chest pain, palpitations, orthopnea, PND. PULM: See HPI GI: No dysphagia/odynophagia, problematic reflux MUSC-SKEL: No joint pain, swelling, or erythema. INTEGUMENTARY: No new skin changes, rashes or history of eczema. PHYSICAL EXAMINATION: BP 122/74 (BP Site: Right Arm, BP Position: Sitting) Pulse 89 Temp 37 ?C (98.6 ?F) (Temporal) Resp 17 Ht 160 cm (5' 3 ) Wt 92.1 kg (203 lb) LMP 05/31/2022 SpO2 97% BMI 35.96 kg/m? Gen: No acute distress. Cooperative with examination. HEENT: Normocephalic. Sclera, conjunctiva clear. Oral hygeine and dentition good. No thrush. Resp: No stridor, accessory respiratory muscle use, supra-sternal or intercostal retractions. No wheezes, crackles. CV: Regular rythm. Heart tones normal. Radial pulses normal. Abd: Non distended. MSK: No kyphoscoliosis. Ext: Warm and well perfused. No clubbing, cyanosis, edema. Skin: No rash, ecchymoses. Neuro: Mental status normal. Affect normal. No tremor. DATA: Exhaled nitric oxide (Osiel), 11/09/2022: 36 (normal < 20). 09/23/2022 71.0 (A) PFT 09/15/22: Review of spirometry shows mild obstruction Labs Component Latest Ref Rng AND Units 09/23/2022 [place] IgE <0.35 kU/l <0.35 [place] Class Class 0 Class 0 [id number] [place] <0.35 kU/l 8.34 (H) [place] Class Class 0 Class 3 (A) [place] IgE <0.35 kU/l 15.20 (H) [place] Class Class 0 Class 3 (A) [place] IgE <0.35 kU/l 2.91 (H) [place] Class Class 0 Class 2 (A) [place] IgE <0.35 kU/l <0.35 [place] Class Class 0 Class 0 [place] IgE <0.35 kU/l 13.90 (H) [place] Class Clas (more content not included)... [facility] 11-09-2022 Note HNO ID: [id number] Author: Cleo Leach RPFT Service: ? Author Type: Respiratory Therapist Type: Procedures Filed: 11/09/2022 2:52 PM Note Text: RESPIRATORY THERAPY ORAL EXHALED NITRIC OXIDE SERVICE DATE: 11/09/2022 SERVICE TIME: 2:51 PM Oral Exhaled Nitric Oxide measurement: 36.0 (ppb) (A) Normal: Adult 5-20 ppb, pediatric (<12 years) 5-15 ppb High Normal / Increased: Adult 20-35 ppb, pediatric (<12 years) 15-25 ppb Moderately raised exhaled Nitric Oxide may indicate underlying inflammation, but note that: Cold and influenza can raise exhaled Nitric Oxide and some patients have higher baseline exhaled Nitric Oxide levels than others. High: Adult >35 ppb, pediatric (<12 years) >25 ppb Indicative of ongoing eosinophilic inflammation. Symptomatic patient likely to respond to steroids. Possible causes (if already on steroids): Poor compliance, recent allergen exposure, steroid dose inadequate, and steroid resistance. Note that not all patients with high exhaled nitric oxide levels display symptoms. Oral Exhaled Nitric Oxide measurement (Previous Encounters) Test Date Oral Exhaled Nitric Oxide (ppb) 11/09/2022 36.0 (A) 09/23/2022 71.0 (A) NAME: KANIKA Lopez PATIENT NAME: Ceasar Jaquez DATE: November 09, 2022 TIME: 2:51 PM [facility] 11-09-2022 Note HNO ID: [id number] Author: Cleo Leach RPFT Service: ? Author Type: Respiratory Therapist Type: Progress Notes Filed: 11/09/2022 2:52 PM Note Text: PULM FUNCTION SMARTBLOCK: Provider: Jaimie Castillo MD Assisting Tech: Cleo Leach RPFT Exhaled Nitric Oxide: 1 [facility] 11-09-2022 Procedure note Associated Ord er(s): NITRIC OXIDE, EXHALED RESPIRATORY THERAPY ORAL EXHALED NITRIC OXIDE SERVICE DATE: 11/09/2022 SERVICE TIME: 2:51 PM Oral Exhaled Nitric Oxide measurement: 36.0 (ppb) (A) Normal: Adult 5-20 ppb, pediatric (<12 years) 5-15 ppb High Normal / Increased: Adult 20-35 ppb, pediatric (<12 years) 15-25 ppb Moderately raised exhaled Nitric Oxide may indicate underlying inflammation, but note that: Cold and influenza can raise exhaled Nitric Oxide and some patients have higher baseline exhaled Nitric Oxide levels than others. High: Adult >35 ppb, pediatric (<12 years) >25 ppb Indicative of ongoing eosinophilic inflammation. Symptomatic patient likely to respond to steroids. Possible causes (if already on steroids): Poor compliance, recent allergen exposure, steroid dose inadequate, and steroid resistance. Note that not all patients with high exhaled nitric oxide levels display symptoms. Oral Exhaled Nitric Oxide measurement (Previous Encounters) Test Date Oral Exhaled Nitric Oxide (ppb) 11/09/2022 36.0 (A) 09/23/2022 71.0 (A) NAME: KANIKA Lopez PATIENT NAME: Ceasar Jaquez DATE: November 09, 2022 TIME: 2:51 PM documented in this encounter [facility] 11-09-2022 History of Presen t illness Narrative PULM FUNCTION SMARTBLOCK: Provider: Jaimie Castillo MD Assisting Tech: Cleo Leach RPFT Exhaled Nitric Oxide: 1 documented in this encounter [facility] 09-23-2022 Note HNO ID: [id number] Author: Cleo Leach RPFT Service: ? Author Type: Respiratory Therapist Type: Procedures Filed: 09/23/2022 9:05 AM Note Text: RESPIRATORY THERAPY ORAL EXHALED NITRIC OXIDE SERVICE DATE: 09/23/2022 SERVICE TIME: 9:05 AM Oral Exhaled Nitric Oxide measurement: 71.0 (ppb) (A) Normal: Adult 5-20 ppb, pediatric (<12 years) 5-15 ppb High Normal / Increased: Adult 20-35 ppb, pediatric (<12 years) 15-25 ppb Moderately raised exhaled Nitric Oxide may indicate underlying inflammation, but note that: Cold and influenza can raise exhaled Nitric Oxide and some patients have higher baseline exhaled Nitric Oxide levels than others. High: Adult >35 ppb, pediatric (<12 years) >25 ppb Indicative of ongoing eosinophilic inflammation. Symptomatic patient likely to respond to steroids. Possible causes (if already on steroids): Poor compliance, recent allergen exposure, steroid dose inadequate, and steroid resistance. Note that not all patients with high exhaled nitric oxide levels display symptoms. Oral Exhaled Nitric Oxide measurement (Previous Encounters) Test Date Oral Exhaled Nitric Oxide (ppb) 09/23/2022 71.0 (A) NAME: KANIKA Lopez PATIENT NAME: Ceasar Jaquez DATE: September 23, 2022 TIME: 9:05 AM [facility] 09-23-2022 Note HNO ID: [id number] Author: Cleo Leach RPFT Service: ? Author Type: Respiratory Therapist Type: Progress Notes Filed: 09/23/2022 9:05 AM Note Text: PULM FUNCTION SMARTBLOCK: Provider: Jaimie Castillo MD Assisting Tech: Cleo Leach RPFT Exhaled Nitric Oxide: 1 [facility] 09-23-2022 Note HNO ID: [id number] Author: Jaimie Castillo MD Service: ? Author Type: Physician Type: Progress Notes Filed: 09/23/2022 11:09 AM Note Text: . Respiratory [facility]ana Note Patient name: Ceasar Jaquez PCP: Lili Goddard MD Referring Physician: Britt Engel CNP Consultation requested by Britt Engel for an opinion regarding SOB and cough. My final recommendations will be communicated back to the requesting physician by way of shared Medical record or letter to requesting physician via US mail. CC: Cough, shortness of breath HPI: Ceasar Jaquez 31 year old obese female former minimal smoker and recent former vaping use with PMH significant for PCOS and recurrent tonsilitis. Upcoming appointment with ENT for possible tonsillectomy. Patient being referred for several month history of cough, wheezing and shortness of breath. No prior history of respiratory issues. She has had symptoms of seasonal allergies, mainly spring and summer with sinus congestion, drainage and itchy eyes. She takes OTC antihistamine with relief of her symptoms but has never been formally tested for allergies. She states she was well until several months ago when she developed sore throat and cough. She has been treated for tonsillitis with antibiotics without relief. Since then she has noted shortness of breath with activity, worse in the evenings, associated wheezing. She has had a dry cough with occasional paroxysms that also seem to be more in the evening. She was prescribed albuterol inhaler which helps her shortness of breath and cough. She has been using her albuterol on a daily basis more than the prescribed dosing. She had a course of oral steroids which made no difference in her symptoms and cough not relieved with codeine cough syrup. She denies significant chest pain. No fevers or chills. Cough can awaken her from sleep. She denies any acid reflux symptoms. No current nasal congestion or drainage. Pulmonary function test show mild obstruction and exhaled nitric oxide level taken today is markedly elevated consistent with eosinophilic airways inflammation. DATA: SERVICE DATE: 09/23/2022 SERVICE TIME: 9:05 AM Oral Exhaled Nitric Oxide measurement: 71.0 (ppb) (A) PFT 09/15/22: Review of spirometry shows mild obstruction Labs: Component Ref Range AND Units 1 mo ago (07/29/22) WBC 3.70 - 11.00 k/uL 7.34 RBC 3.90 - 5.20 m/uL 4.45 Hemoglobin 11.5 - 15.5 g/dL 10.9 Low Hematocrit 36.0 - 46.0 % 35.7 Low MCV 80.0 - 100.0 fL 80.2 MCH 26.0 - 34.0 pg 24.5 Low MCHC 30.5 - 36.0 g/dL 30.5 RDW-CV 11.5 - 15.0 % 15.2 High Platelet Count 150 - 400 k/uL 407 High MPV 9.0 - 12.7 fL 9.5 Neutrophils % % 52.0 Abs Neut 1.45 - 7.50 k/uL 3.82 Lymphocytes % % 37.6 Abs Lymph 1.00 - 4.00 k/uL 2.76 Monocytes % % 8.9 Abs [place] <0.87 k/uL 0.65 Eosinophils % % 1.0 Abs Eosin <0.46 k/uL 0.07 Basophils % % 0.4 Abs Baso <0.11 k/uL 0.03 Immature Granulocytes % % 0.1 Abs Immature Gran <0.10 k/uL <0.03 NRBC /100 WBC 0.0 Absolute nRBC <0.01 k/uL <0.01 Diff Type Auto Imaging / Diagnostic Studies: No chest imaging on file 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 Take on empty stomach, 1/2 hr before meal. ferrous sulfate 325 mg (65 mg iron) tablet Take 1 tablet by mouth twice daily with meals. Social History Tobacco Use Smoking status: Former Packs/day: 1.00 Years: 4.00 Total pack years: 4.00 Types: Cigarettes Quit date: 05/2014 Years since quittin.3 Smokeless tobacco: Never Tobacco comments: vaps while at work Vaping Use Vaping Use: Former Substances: Nicotine Substance Use Topics Alcohol use: Yes Comment: occasionally Drug use: No Pets: Dog [employer] O[employer] for [employer] FAMILY HISTORY Problem Relation Age of Onset Seizures Father Arthritis Maternal Grandmother Thyroid Maternal Grandmother Diabetes Maternal Grandfather Heart Maternal Grandfather Asthma No Family History PAST SURGICAL HISTORY Procedure Laterality Date DELIVERY ONLY 07/12/2016 SECTION HX CHOLECYSTECTOMY W/CHOLANGIOGRAPHY N/A 03/09/2018 HERNIA REPAIR HX HYSTEROSCOPY NEETU STERILIZATION Bilateral 2017 PMH, Social history, family history and surgical history reviewed and updated in EMR REVIEW OF SYSTEMS: CONSTITUTIONAL: No fevers, chills, nightsweats, unintended weight (more content not included)... [facility] 09-23-2022 History of Presen t illness Narrative PULM FUNCTION SMARTBLOCK: Provider: Jaimie Castillo MD Assisting Tech: Cleo Leach RPFT Exhaled Nitric Oxide: 1 documented in this encounter [facility] 09-23-2022 Procedure note Associated Ord er(s): NITRIC OXIDE, EXHALED RESPIRATORY THERAPY ORAL EXHALED NITRIC OXIDE SERVICE DATE: 09/23/2022 SERVICE TIME: 9:05 AM Oral Exhaled Nitric Oxide measurement: 71.0 (ppb) (A) Normal: Adult 5-20 ppb, pediatric (<12 years) 5-15 ppb High Normal / Increased: Adult 20-35 ppb, pediatric (<12 years) 15-25 ppb Moderately raised exhaled Nitric Oxide may indicate underlying inflammation, but note that: Cold and influenza can raise exhaled Nitric Oxide and some patients have higher baseline exhaled Nitric Oxide levels than others. High: Adult >35 ppb, pediatric (<12 years) >25 ppb Indicative of ongoing eosinophilic inflammation. Symptomatic patient likely to respond to steroids. Possible causes (if already on steroids): Poor compliance, recent allergen exposure, steroid dose inadequate, and steroid resistance. Note that not all patients with high exhaled nitric oxide levels display symptoms. Oral Exhaled Nitric Oxide measurement (Previous Encounters) Test Date Oral Exhaled Nitric Oxide (ppb) 09/23/2022 71.0 (A) NAME: KANIKA Lopez PATIENT NAME: Ceasar Jaquez DATE: September 23, 2022 TIME: 9:05 AM documented in this encounter [facility] 09-23-2022 History of Presen t illness Narrative Images from the original note were not included. . Respiratory [facility] Note Patient name: Ceasar Jaquez PCP: Lili Goddard MD Referring Physician: Britt Engel CNP Consultation requested by Britt Engel for an opinion regarding SOB and cough. My final recommendations will be communicated back to the requesting physician by way of shared Medical record or letter to requesting physician via [place] mail. CC: Cough, shortness of breath HPI: Ceasar Jaquez 31 year old obese female former minimal smoker and recent former vaping use with PMH significant for PCOS and recurrent tonsilitis. Upcoming appointment with ENT for possible tonsillectomy. Patient being referred for several month history of cough, wheezing and shortness of breath. No prior history of respiratory issues. She has had symptoms of seasonal allergies, mainly spring and summer with sinus congestion, drainage and itchy eyes. She takes OTC antihistamine with relief of her symptoms but has never been formally tested for allergies. She states she was well until several months ago when she developed sore throat and cough. She has been treated for tonsillitis with antibiotics without relief. Since then she has noted shortness of breath with activity, worse in the evenings, associated wheezing. She has had a dry cough with occasional paroxysms that also seem to be more in the evening. She was prescribed albuterol inhaler which helps her shortness of breath and cough. She has been using her albuterol on a daily basis more than the prescribed dosing. She had a course of oral steroids which made no difference in her symptoms and cough not relieved with codeine cough syrup. She denies significant chest pain. No fevers or chills. Cough can awaken her from sleep. She denies any acid reflux symptoms. No current nasal congestion or drainage. Pulmonary function test show mild obstruction and exhaled nitric oxide level taken today is markedly elevated consistent with eosinophilic airways inflammation. DATA: SERVICE DATE: 09/23/2022 SERVICE TIME: 9:05 AM Oral Exhaled Nitric Oxide measurement: 71.0 (ppb) (A) PFT 09/15/22: Review of spirometry shows mild obstruction Labs: Component Ref Range & Units 1 mo ago (07/29/22) WBC 3.70 - 11.00 k/uL 7.34 RBC 3.90 - 5.20 m/uL 4.45 Hemoglobin 11.5 - 15.5 g/dL 10.9 Low Hematocrit 36.0 - 46.0 % 35.7 Low MCV 80.0 - 100.0 fL 80.2 MCH 26.0 - 34.0 pg 24.5 Low MCHC 30.5 - 36.0 g/dL 30.5 RDW-CV 11.5 - 15.0 % 15.2 High Platelet Count 150 - 400 k/uL 407 High MPV 9.0 - 12.7 fL 9.5 Neutrophils % % 52.0 Abs Neut 1.45 - 7.50 k/uL 3.82 Lymphocytes % % 37.6 Abs Lymph 1.00 - 4.00 k/uL 2.76 Monocytes % % 8.9 Abs [place] <0.87 k/uL 0.65 Eosinophils % % 1.0 Abs Eosin <0.46 k/uL 0.07 Basophils % % 0.4 Abs Baso <0.11 k/uL 0.03 Immature Granulocytes % % 0.1 Abs Immature Gran <0.10 k/uL <0.03 NRBC /100 WBC 0.0 Absolute nRBC <0.01 k/uL <0.01 Diff Type Auto Imaging / Diagnostic Studies: No chest imaging on file 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 Take on empty stomach, 1/2 hr before meal. ferrous sulfate 325 mg (65 mg iron) tablet Take 1 tablet by mouth twice daily with meals. Social History Tobacco Use Smoking status: Former Packs/day: 1.00 Years: 4.00 Total pack years: 4.00 Types: Cigarettes Quit date: 05/2014 Years since quittin.3 Smokeless tobacco: Never Tobacco comments: vaps while at work Vaping Use Vaping Use: Former Substances: Nicotine Substance Use Topics Alcohol use: Yes Comment: occasionally Drug use: No Pets: Dog [employer] for [employer] FAMILY HISTORY Problem Relation Age of Onset Seizures Father Arthritis Maternal Grandmother Thyroid Maternal Grandmother Diabetes Maternal Grandfather Heart Maternal Grandfather Asthma No Family History PAST SURGICAL HISTORY Procedure Laterality Date DELIVERY ONLY 07/12/2016 SECTION HX CHOLECYSTECTOMY W/CHOLANGIOGRAPHY N/A 03/09/2018 HERNIA REPAIR HX HYSTEROSCOPY NEETU STERILIZATION Bilateral 2017 PMH, Social history, family history and surgical history reviewed and updated in EMR REVIEW OF SYSTEMS: CONSTITUTIONAL: No fevers, chills, nightsweats, unintended weight loss HEENT: Denies headaches. Seasonal nasal congestion/sinus symptoms, problematic allergy problems. Sore throat EYES: No diplopia or blurry vision. Itchy eyes CARDIOVASCULAR: No chest pain, palpitations, orthopnea, PND. Some ankle edema PULM: See HPI GI: No dysphagia/odynophagia, problematic reflux : No urinary complaints, including dysuria, gross hematuria or pyuria. NEURO: No balance problems, peripheral weakness/paresthesias or numbness of concern. MUSC-SKEL: No joint pain, swelling, or erythema. PSY: No concerns regarding depression, anxiety INTEGUMENTARY: No new skin changes, rashes or history of eczema. She does have sensitivity to detergents, lotions and deodorant PHYSICAL EXAMINATION: Pulse 83 Resp 15 Wt 194 lb (88.0kg) SpO2 99% LMP 05/31/2022 General Appearance: Age-appropriate female, NAD, wheezy cough. Skin: Skin color, texture, turgor normal, no suspicious rashes or lesions. Tattoos Head: Normocephalic, no masses, lesions, tenderness or abnormalities. Eyes: Sclera, conjunctiva normal. Oropharynx: Poor dentition, no oral lesions, no enlarged tonsils or erythema Neck: No JVD, no masses, no thyromegaly. Lungs: Not labored, normal to percussion, no wheezes or crackles. Wheezy cough with deep inspiration Heart: Regular rate and rhythm, no murmurs gallops. Extremities: No edema or clubbing. Musculoskeletal: No joint deformities or effusions Nodes: No cervical adenopathy Assessment/Plan: 1. Mild persistent asthma, uncomplicated -Clinical history and diagnostic testing consistent with asthma -Started Advair discus 500/50 with continued use of albuterol. Patient was strongly cautioned on overuse of her albuterol -Follow Osiel 2. Seasonal allergic rhinitis -RAST testing for the usual allergens Jaimie Castillo MD Respiratory [facility] documented in this encounter [facility] 09-21-2022 Hospital Discharg e instructions Patient Education 09/21/2022 09:00:28 Cough, Chronic, Uncertain Cause, (Adult) Chronic Cough with Uncertain Cause (Adult) Everyone has had a cough as part of the common cold, flu, or bronchitis. This kind of cough occurs along with an achy feeling, low-grade fever, nasal and sinus congestion, and a scratchy or sore throat. This usually gets better in 2 to 3 weeks. A cough that lasts longer than 3 weeks may be due to other causes. Your healthcare provider may refer to this as a chronic cough. If your cough does not improve over the next 2 weeks, further testing may be needed. Follow up with your healthcare provider as advised. Cough suppressants may be recommended. Based on your exam today, the exact cause of your cough is not certain. Below are some common causes for persistent cough. Smoker's cough Smoker s cough doesn t go away. If you continue to smoke, it only gets worse. The cough is from irritation in the air passages. Talk to your healthcare provider about quitting. Medicines or nicotine-replacement products, like gum or the patch, may make quitting easier. Postnasal drip A cough that is worse at night may be due to postnasal drip. Excess mucus in the nose drains from the back of your nose to your throat. This triggers the cough reflex. Postnasal drip may be due to a sinus infection or allergy. Common allergens include dust, tobacco smoke (both inhaled and secondhand smoke), environmental pollutants, pollen, mold, pets, cleaning agents, room deodorizers, and chemical fumes. [id number] antihistamines or decongestants may be helpful for allergies. A sinus infection may requires antibiotic treatment. See your healthcare provider if symptoms continue. Medicines Certain prescribed medicines can cause a chronic cough in some people: EVIE inhibitors for high blood pressure. These include benazepril, captopril, enalapril, fosinopril, lisinopril, quinapril, ramipril, and others. Beta-blockers for high blood pressure and other conditions. These include propranolol, atenolol, metoprolol, nadolol, and others. Let your healthcare provider know if you are taking any of these. The chronic cough may mean your medicine needs to be changed. Asthma Cough may be the only sign of mild asthma. You may have tests to find out if asthma is causing your cough. You may also take asthma medicine on a trial basis. Acid reflux (heartburn, GERD) The esophagus is the tube that carries food from the mouth to the stomach. A valve at its lower end prevents stomach acids from flowing upward. If this valve does not work properly, acid from the stomach enters the esophagus. This may cause a burning pain in the upper abdomen or lower chest, belching, or cough. Symptoms are often worse when lying flat. Avoid eating or drinking before bedtime. Try using extra pillows to raise your upper body, or place 4-inch blocks under the head of your bed. You may try an kfnw-ani-nbcvbav (OTC) antacid or an acid-blocking medicine such as famotidine, cimetidine, ranitidine, esomeprazole, lansoprazole, or omeprazole. Stronger medicines for this condition can be prescribed by your healthcare provider. Ask your healthcare provider which OTC medicine to use. Depending on your current medicines, some OTC medicines may cause drug interactions and should be avoided. Follow-up care Follow up with your healthcare provider, or as advised, if your cough does not improve. Further testing may be needed. Note: If an X-ray was taken, a specialist will review it. You will be notified of any new findings that may affect your care. When to seek medical advice Call your healthcare provider right away if any of these occur: Mild wheezing or difficulty breathing Fever of 100.4 F (38 C) or higher, or as directed by your healthcare provider Unexpected weight loss Coughing up large amounts of colored sputum or blood-tinged sputum Night sweats (sheets and pajamas get soaking wet) Call 911 Call 911 if any of these occur: Coughing up blood Moderate to severe trouble breathing or wheezing [phone] [employer]. [address] [place] [id number]. All rights reserved. This information is not intended as a substitute for professional medical care. Always follow your healthcare professional's instructions. Follow Up Care 09/21/2022 07:46:07 With:LISBETH SWIFT Address: When:2-4 days With:Go to emergency room if symptoms worsen Address:Unknown When:2-4 days [facility] 09-21-2022 Note Discharge Instructions Thank you for allowing [facility] to assist you with your healthcare needs. The following is important discharge information regarding your hospital visit. Diagnosis from Today's Visit Cough Cough What to Do Next Instructions from Your Care Team No qualifying data available. Post Acute Orders No qualifying data available. You Need to Schedule the Following Appointments Follow Up with [facility] When Within 2-4 days Where: Follow Up with Go to emergency room if symptoms worsen When Within 2-4 days Allergies Naprosyn penicillin Medications Please ask your primary doctor or pharmacist before taking any other medication not listed, including over the counter drugs, herbal medications, vitamins and or supplements as they may interact with your home medications. What How Much When Instructions Last Dose New benzonatate (Tessalon Perles 100 mg oral capsule) 1 cap by mouth Three (3) times a day Duration: 10 Days Printed Prescription Unchanged albuterol (Ventolin HFA MDI (90 mcg/ inh) inhalation aerosol) 2 puff(s) by inhalation Every 4 hours as needed for as needed for wheezing Unchanged citalopram (citalopram 20 mg oral tablet) 1 tab(s) by mouth Every day Unchanged doxycycline (doxycycline hyclate 100 mg oral tablet) 1 tab(s) by mouth Two (2) times a day Duration: 10 Days Unchanged ferrous sulfate (FeroSul 325 mg (65 mg elemental iron) oral tablet) 1 tab(s) by mouth Two (2) times a day Unchanged ibuprofen (ibuprofen 600 mg oral tablet) 1 tab(s) by mouth Four (4) times a day as needed for as needed for pain Unchanged meloxicam (meloxicam 7.5 mg oral tablet) 1 tab(s) by mouth Once a day Duration: 14 Days Unchanged multivitamin, (Materna Multivitamins oral tablet) 1 tab by mouth Every day Unchanged pantoprazole (pantoprazole 40 mg oral enteric coated tablet) 2 tab(s) by mouth Once a day Unchanged predniSONE (predniSONE 10 mg oral tablet) TAKE 4 TABLETS BY MOUTH FOR 3 (THREE) DAYS, TAKE 2 TABLETS FOR 3 (THREE) DAYS. TAKE 1 TABLET FOR 3 (THREE) DAYS. TAKE WITH FOOD IN THE MORNING Please take this list to your next doctor s visit. Bring all medications you take, including over the counter medications, herbals and other supplements with you to your doctor s visit. Patients and families are reminded to discard old lists and to update any records with all medication providers or retail pharmacies. Medication Leaflets benzonatate (mounika Butler What is the most important information I should know about benzonatate? Never suck or chew on a benzonatate capsule. Swallow the pill whole. Sucking or chewing the capsule may cause serious side effects. Benzonatate is not approved for use by anyone younger than 10 years old. An overdose of benzonatate can be fatal to a young child. What is benzonatate? Benzonatate is used to relieve coughing. Benzonatate is a non-narcotic cough medicine that numbs the throat and lungs, making the cough reflex less active. Benzonatate may also be used for purposes not listed in this medication guide. What should I discuss with my healthcare provider before taking benzonatate? You should not use this medicine if you are allergic to benzonatate or topical numbing medicines such as tetracaine or procaine (found in some insect bite and sunburn creams). Tell your doctor if you are or . Benzonatate is not approved for use by anyone younger than 10 years old. An overdose of benzonatate can be fatal, especially to a young child who has accidentally swallowed the medicine. How should I take benzonatate? Follow all directions on your prescription label and read all medication guides or instruction sheets. Use the medicine exactly as directed. Never suck or chew on a benzonatate capsule. Swallow the pill whole. Sucking or chewing the capsule may cause serious side effects. Store at room temperature away from moisture, heat, and light. What happens if I miss a dose? Skip the missed dose and use your next dose at the regular time. Do not use two doses at one time. What happens if I overdose? Seek emergency medical attention or call the Poison Help line at . An overdose of benzonatate can be fatal, especially to a child. Accidental has occurred in children under 10 years old. Overdose symptoms may include tremors, feeling restless, seizure (convulsions), slow heart rate, weak pulse, fainting, and slow breathing (breathing may stop). What should I avoid while taking benzonatate? Avoid eating or drinking anything while you feel numbness or tingling in your mouth or throat. What are the possible side effects of benzonatate? Stop taking this medicine and get emergency medical help if you have signs of an allergic reaction: hives; difficult breathing; swelling of your face, lips, tongue, or throat. Call your doctor at once if you have: severe drowsiness or dizziness; confusion, hallucinations. ongoing numbness or tingling in your mouth, throat, or face; numbness in your chest; a choking feeling; chills; or burning in your eyes. Some of these side effects may result from chewing or sucking on a benzonatate capsule. Common side effects may include: headache, dizziness; nausea, upset stomach; constipation; itching, rash; or stuffy nose. This is not a complete list of side effects and others may occur. Call your doctor for medical advice about side effects. You may report side effects to FDA at 5-385-RIW-2936. What other drugs will affect benzonatate? Using benzonatate with other drugs that make you drowsy can worsen this effect. Ask your doctor before using opioid medication, a sleeping pill, a muscle relaxer, or medicine for anxiety or seizures. Other drugs may affect benzonatate, including prescription and zwtk-bqb-kriccfd medicines, vitamins, and herbal products. Tell your doctor about all your current medicines and any medicine you start or stop using. Where can I get more information? Your pharmacist can provide more information about benzonatate. Remember, keep this and all other medicines out of the reach of children, never share your medicines with others, and use this medication only for the indication prescribed. Every effort has been made to ensure that the information provided by [employer]. ('[employer]') is accurate, up-to-date, and complete, but no guarantee is made to that effect. Drug information contained herein may be time sensitive. [employer] information has been compiled for use by healthcare practitioners and consumers in the [place] and therefore [employer] does not warrant that uses outside of the [place] are appropriate, unless specifically indicated otherwise. [employer] drug information does not endorse drugs, diagnose patients or recommend therapy. [employer] drug information is an informational resource designed to assist licensed healthcare practitioners in caring for their patients and/or to serve consumers viewing this service as a supplement to, and not a substitute for, the expertise, skill, knowledge and judgment of healthcare practitioners. The absence of a warning for a given drug or drug combination in no way should be construed to indicate that the drug or drug combination is safe, effective or appropriate for any given patient. [facility] does not assume any responsibility for any aspect of healthcare administered with the aid of information [facility] provides. The information contained herein is not intended to cover all possible uses, directions, precautions, warnings, drug interactions, allergic reactions, or adverse effects. If you have questions about the drugs you are taking, check with your doctor, nurse or pharmacist. Copyright 5411-0287 [employer]. Version: 9.01. Revision Date: 11/29/2018. Education Materials Chronic Cough with Uncertain Cause (Adult) Everyone has had a cough as part of the common cold, flu, or bronchitis. This kind of cough occurs along with an achy feeling, low-grade fever, nasal and sinus congestion, and a scratchy or sore throat. This usually gets better in 2 to 3 weeks. A cough that lasts longer than 3 weeks may be due to other causes. Your healthcare provider may refer to this as a chronic cough. If your cough does not improve over the next 2 weeks, further testing may be needed. Follow up with your healthcare provider as advised. Cough suppressants may be recommended. Based on your exam today, the exact cause of your cough is not certain. Below are some common causes for persistent cough. Smoker's cough Smoker s cough doesn t go away. If you continue to smoke, it only gets worse. The cough is from irritation in the air passages. Talk to your healthcare provider about quitting. Medicines or nicotine-replacement products, like gum or the patch, may make quitting easier. Postnasal drip A cough that is worse at night may be due to postnasal drip. Excess mucus in the nose drains from the back of your nose to your throat. This triggers the cough reflex. Postnasal drip may be due to a sinus infection or allergy. Common allergens include dust, tobacco smoke (both inhaled and secondhand smoke), environmental pollutants, pollen, mold, pets, cleaning agents, room deodorizers, and chemical fumes. Jpwj-wlg-vveskqw antihistamines or decongestants may be helpful for allergies. A sinus infection may requires antibiotic treatment. See your healthcare provider if symptoms continue. Medicines Certain prescribed medicines can cause a chronic cough in some people: EVIE inhibitors for high blood pressure. These include benazepril, captopril, enalapril, fosinopril, lisinopril, quinapril, ramipril, and others. Beta-blockers for high blood pressure and other conditions. These include propranolol, atenolol, metoprolol, nadolol, and others. Let your healthcare provider know if you are taking any of these. The chronic cough may mean your medicine needs to be changed. Asthma Cough may be the only sign of mild asthma. You may have tests to find out if asthma is causing your cough. You may also take asthma medicine on a trial basis. Acid reflux (heartburn, GERD) The esophagus is the tube that carries food from the mouth to the stomach. A valve at its lower end prevents stomach acids from flowing upward. If this valve does not work properly, acid from the stomach enters the esophagus. This may cause a burning pain in the upper abdomen or lower chest, belching, or cough. Symptoms are often worse when lying flat. Avoid eating or drinking before bedtime. Try using extra pillows to raise your upper body, or place 4-inch blocks under the head of your bed. You may try an youa-mtm-ssxuikg (OTC) antacid or an acid-blocking medicine such as famotidine, cimetidine, ranitidine, esomeprazole, lansoprazole, or omeprazole. Stronger medicines for this condition can be prescribed by your healthcare provider. Ask your healthcare provider which OTC medicine to use. Depending on your current medicines, some OTC medicines may cause drug interactions and should be avoided. Follow-up care Follow up with your healthcare provider, or as advised, if your cough does not improve. Further testing may be needed. Note: If an X-ray was taken, a specialist will review it. You will be notified of any new findings that may affect your care. When to seek medical advice Call your healthcare provider right away if any of these occur: Mild wheezing or difficulty breathing Fever of 100.4 F (38 C) or higher, or as directed by your healthcare provider Unexpected weight loss Coughing up large amounts of colored sputum or blood-tinged sputum Night sweats (sheets and pajamas get soaking wet) Call 911 Call 911 if any of these occur: Coughing up blood Moderate to severe trouble breathing or wheezing [id number] [employer] [address] [place] [address], [place] [address]. All rights reserved. This information is not intended as a substitute for professional medical care. Always follow your healthcare professional's instructions. Additional Information VACCINATE! IT SAVES LIVES! Members of the community who have not yet received the COVID-19 vaccine and would like to receive it can visit one of [facility] vaccine clinics. There are many vaccine clinic locations within the [facility]. For locations and available times, please visit [email or web address] [email or web address] It is important to note that some COVID mobile vaccine clinics are held outdoors and may be canceled in rainy or stormy conditions. To learn more about pediatric vaccinations (ages 5-11), we invite you to visit the [employer] [facility] webpage. https://[email or web address]/p [email or web address]-Axzhr-Bmuytubwrpk-Freq damsvj-Nervs-Cafnociyx.html To learn more about the COVID-19 vaccine, we invite you to visit the CDC website for a list of frequently asked questions. https://www.cdc.gov/coronavirus/ 2019-ncov/vaccines/faq.html [employer] Patient Portal Access Instructions: Stay connected with your healthcare team and access your personal medical information anytime with the [facility] Patient Portal. If you would like a full copy of your medical records please contact the [facility] Medical Records Department Monday through Monday between 8a.m. and 4:30p.m. Please follow the directions below to access the portal: 1.Access the email account you provided upon registration to the hospital.2.Look for an invitation email from [facility].3.Open the email and access the invitation link: Accept Invitation to [facility]4.Fill in the required dorantes to create your account. Sign into [email or web address] with your username and password that you created in the above steps to stay up to date. You can then view a summary of results, a summary of your visits, and the ability to download your summaries to your computer or send the information securely to a physician. Remember that your healthcare information is confidential, so carefully consider who you will allow to register on the [employer] Patient Portal for access to your information. You can also access the [employer] Patient Portal on the [employer]. Simply click on Health Records under Health Data and then click on the [employer] logo. HOW TO SAFELY DISPOSE OF PRESCRIPTION MEDICATIONS Please use one of the following methods to safely dispose of your unused medications. 1.Use a drug disposal kit: the drug disposal pouch allows you to safely discard your old and unused drugs. Ask your nurse to give you one when you are discharged.2.Visit a local take-back location: Many local pharmacies and police departments have programs that collect old and unwanted prescription drugs. Call your local pharmacy or go to http://Chelaile.Bauzaar/3B5Jw5h to find one close to you.3.Make use of household items: Use cat litter or old coffee grounds to dispose medications if other options are not available. Mix your drugs with these household products, seal them in an airtight container and throw it into the garbage. Call [facility]: [phone] to be sure your drugs can be disposed of in this way. Some medicines may require a different approach.4.Never flush your medications down the toilet. IF YOU HAVE BEEN PRESCRIBED AN OPIOIDS FOR PAIN If you have been prescribed an opioid (such as hydrocodone, oxycodone or morphine), it is critical to understand the possible side effects and risks of opioid pain medications. Even when taken as directed, opioids can have several side effects including: Tolerance, meaning you might need to take more of a medication for the same pain relief. Nausea, vomiting and/or constipation. Sleepiness, dizziness, dry mouth, confusion, depression or itching. Physical dependence, meaning you have withdrawal symptoms when a medication is stopped ? this can develop within a few days. KNOW YOUR RESPONSIBILITIES It is important to know exactly how much and how often to take the opioid pain medications you are prescribed. Never take opioids in higher amounts or more often than prescribed. Do not combine opioids with alcohol or other drugs that cause drowsiness, such as benzodiazepines, also known as benzos, including diazepam and alprazolam, muscle relaxants or sleep aids. Never sell or share prescription opioids. This is illegal. Store opioids in a secure place and out of reach of others (including children, family, friends and visitors). The last page(s) of this document has been signed and retained as a CHART COPY Signatures Patient Education Materials Cough, Chronic, Uncertain Cause, (Adult) Medication Leaflets benzonatate My discharge plan and instructions have been reviewed and explained to me and I,CEASAR JAQUEZ understand my current condition and have read and understand these discharge instructions. I have received a written copy of the plan/instructions. If I have questions, I am aware that I should contact my doctor. Patient/Inspector Balance Bridge Signature: Date/Time: Relationship to Patient: Witness Name/Signature: Date/Time: [facility] 09-21-2022 Note ORIGINAL EXAMINATION: TWO XRAY VIEWS OF THE CHEST09/21/2022 8:31 am COMPARISON: None HISTORY: ORDERING SYSTEM PROVIDED HISTORY: Reason for Exam: Cough/Fever Suspect Pneumonia FINDINGS: Cardiomediastinal contours are within normal limits. No focal consolidation or pulmonary edema. No pneumothorax or pleural effusion. No acute osseous abnormality. IMPRESSION: No acute cardiopulmonary process. I have personally reviewed the images of this examination and agree with the resident's findings and interpretations. Interpreted by: Josesito Guillaume MD Preliminary Report By: Suleman Wharton Electronically signed By Josesito Guillaume MD Dictated Date: 09/21/2022 8:47:54 AM Prelim Date: 09/21/2022 8:52:36 AM Sign Date: 09/21/2022 8:53:21 AM Ordering Provider: [facility] 09-15-2022 Note HNO ID: [id number] Author: Cleo Leach RPFT Service: ? Author Type: Respiratory Therapist Type: Progress Notes Filed: 09/15/2022 8:01 AM Note Text: PULM FUNCTION SMARTBLOCK: Provider: Britt Engel APRN.BIRD TENDER Assisting Tech: Cleo Leach RPFT Spirometry: 1 [facility] 07-27-2023 History of Presen t illness Narrative PULM FUNCTION SMARTBLOCK: Provider: Britt Engel APRN.BIRD TENDER Assisting Tech: Cleo Leach RPFT Spirometry: 1 documented in this encounter [facility] 09-13-2022 Note HNO ID: [id number] Author: Britt Engel APRN.BIRD TENDER Service: ? Author Type: Nurse Specialist Type: Progress Notes Filed: 09/13/2022 3:18 PM Note Text: SUBJECTIVE: HEPATITIS B(1 of 3 - 3-dose series) Never done HPV TESTING Never done COVID-19 VACCINE(3 - Pfizer series) due on 02/11/2022 DEPRESSION ASSESSMENT Never done PAP TESTING due on 11/24/2022 HPI Ceasar Jaquez is a 31 year old female. PMH significant for ACTIVE PROBLEM LIST (none) - all problems resolved or deleted She presents for recurrent streptococcal tonsillitis. She has been referred to ENT. Reports she has had an ENT visit. Seen by Dr Jackson Dx: States no diagnosis. Treated with nothing additional. States no scope completed. Culture completed at [facility] 09/07/[address] Brantley ENT showed normal elvira of the throat. Strep a molecular test August 29, 2022 was positive. She was treated with cephalexin June 23, 2022, cephalexin July 29, 2022 and cefdinir 300 mg August 29, 2022. All 10 day courses. Tonsillectomy discussion: no She reports a cough for 5 months. Reports was vaping until 1 month ago. No known asthma or COPD. Chest x-ray was completed at [facility] in July. No acute findings. Today reports frustration with cough and sore throat. States not interested in antibiotic. States took pantoprazole as ordered and didn't help her cough. Review of Systems HENT: Positive for sore throat. Respiratory: Positive for cough, shortness of breath and wheezing. Objective BP 128/72 Pulse 92 Temp 37 ?C (98.6 ?F) Resp 16 Wt 89.4 kg (197 lb) LMP 05/31/2022 SpO2 98% BMI 34.90 kg/m? Physical Exam Vitals and nursing note reviewed. Constitutional: Appearance: Normal appearance. HENT: Head: Normocephalic and atraumatic. Right Ear: Tympanic membrane and ear canal normal. Left Ear: Tympanic membrane and ear canal normal. Nose: Mucosal edema and rhinorrhea present. Right Sinus: No maxillary sinus tenderness or frontal sinus tenderness. Left Sinus: No maxillary sinus tenderness or frontal sinus tenderness. Mouth/Throat: Lips: [place]. Mouth: Mucous membranes are moist. Pharynx: Posterior oropharyngeal erythema present. Eyes: Conjunctiva/sclera: Conjunctivae normal. Neck: Thyroid: No thyromegaly. Cardiovascular: Rate and Rhythm: Normal rate and regular rhythm. Pulses: Carotid pulses are 2+ on the right side and 2+ on the left side. Radial pulses are 2+ on the right side and 2+ on the left side. Pulmonary: Effort: Pulmonary effort is normal. Breath sounds: Normal breath sounds. Lymphadenopathy: Cervical: Left cervical: No superficial cervical adenopathy. Skin: General: Skin is warm and dry. Neurological: General: No focal deficit present. Mental Status: She is alert and oriented to person, place, and time. ALLERGIES Allergen Reactions Naproxen Rash Penicillins Hives Medication VENTOLIN HFA 90 mcg/actuation inhaler INHALE 2 PUFFS EVERY 4 TO 6 HOURS NEEDED Ljoauvkvclxlcme-Eeiytfqkz-AE 2-30-10 mg/5 mL syrup Take 10 mL (Oral) every 4-6 hours for [address] (PROTONIX) 40 mg tablet Take 1 tablet by mouth daily before breakfast. Take on empty stomach, 1/2 hr before meal. ferrous sulfate 325 mg (65 mg iron) tablet Take 1 tablet by mouth twice daily with meals. 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 Recurrent streptococcal tonsillitis - ICD9: 034.0, ICD10: J03.01 (primary diagnosis) - AZITHROMYCIN 250 MG TABLET 2. Subacute cough - ICD9: 786.2, ICD10: R05.2 She reports coughing for 3 months. She notes shortness of breath and wheezing. No known history of asthma or COPD. Notes inhaler is helping somewhat. She reports vaping tobacco until 1 month ago - XR CHEST 2V FRONTAL/LAT - SPIROMETRY WITH DILATOR IF OBSTRUCTED - PREDNISONE 10 MG TABLET - VENTOLIN HFA 90 MCG/ACTUATION AEROSOL INHALER Britt Engel APRN.BIRD TENDER Medical Decision Making: Problems: Low: Acute, uncomplicated illness or injury Data: Unique test(s) ordered: 1 Risk: Moderate: Drug management Medical Decision Making Level: 3 - Low [facility] 09-05-2022 Miscellaneous Notes Images from the original note were not included. Patient calling asking for her throat culture results. THROAT CULTURE Order: [id number] Status: Final result Visible to patient: Yes (not seen) Dx: Recurrent streptococcal pharyngitis; ... Specimen Information: THROAT SWAB; Micro Specimen 0 Result Notes 1 Patient Communication Throat Culture No Streptococcus pyogenes (Group A streptococcus) isolated. Resulting Agency: [facility] Specimen Collected: 08/29/22 3:24 PM EDT Last Resulted: 09/01/22 11:58 AM EDT Lab Flowsheet Order Details View Encounter Lab and Collection Details Routing Result History View All Conversations on this Encounter Result Care Coordination Patient Communication Edit Comments Add Notifications Back to [facility] No concerns on throat culture. Continue with plans to see ENT. Take care Paige Ballard APRN.CNP Written by Paige Ballard APRN.CNP on 09/01/2022 3:23 PM EDT Went over results, notes from Paige Ballard LANDSCAPE ENGINEER with understanding. documented in this encounter [facility] 08-31-2022 Miscellaneous Notes Patient notified, has appointment with ENT on 09/07. Please let patient know that throat culture is still in process and can take 3 days for final results. See my chart message for blood work. Thank you Paige Ballard APRN.MARILYNN patient is calling in requesting results of blood work and throat culture that was completed. Please review and advise. Patient needs called with information documented in this encounter [facility] 08-29-2022 Note HNO ID: [id number] Author: Paige Ballard APRN.CNP Service: ? Author Type: Nurse Practitioner Type: Progress Notes Filed: 08/30/2022 10:50 AM Note Text: CC: Patient presents with: Recheck: Strep throat follow up, cough HPI Ceasar Jaquez is a 31 year old female who presents today for follow up on recurrent strep throat. Saurabh been positive for strep 4 times in the past 4 months and treated for each time. Was seen and tested at an urgent care. Last antibiotic is unknown and unsure what it was. Works at a [employer] and has been changing her toothpaste and taking precautions to no keep reinfecting herself. Currently has had an intermittent cough, continued fatigue, sore throat, and wheezing. Has never had this prior to the recurrent strep throat. Had a normal chest xray a few weeks ago. Was consulted by PCP to ENT but has not been seen yet. Was started on protonix by PCP 2 weeks ago but not started this either. Was given an albuterol inhaler at last urgent care visit for her shortness of breath and wheezing maybe a month or so ago, but is using often and almost out. Anemia: History of iron deficiency and heavy menstrual cycles. Denies any dark sticky stools, blood in stools, or abnormal bleeding outside of heavy menstruation. REVIEW OF SYSTEMS General: no fevers, no chills, no night sweats, no recurrent infections, no change in appetite, and no significant changes in weight Respiratory: See HPI Cardiovascular: no chest pain, no chest pressure, no palpitations, and no swelling GI: No nausea, vomiting, or diarrhea Neurologic: No headache, weakness, dizziness, memory loss, syncope. 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 Take on empty stomach, 1/2 hr before meal. ferrous sulfate 325 mg (65 mg iron) tablet Take 1 tablet by mouth twice daily with meals. FAMILY HISTORY Problem Relation Age of Onset Seizures Father Arthritis Maternal Grandmother Thyroid Maternal Grandmother Diabetes Maternal Grandfather Heart Maternal Grandfather Social History Tobacco Use Smoking status: Former Years: 4.00 Types: Cigarettes Quit date: 05/2014 Years since quittin.2 Smokeless tobacco: Never Tobacco comments: vaps while at work Substance Use Topics Alcohol use: Yes Comment: occasionally Drug use: No PHYSICAL EXAM BP 112/70 Pulse 80 Temp 37 ?C (98.6 ?F) (Temporal) Resp 16 Wt 88.5 kg (195 lb) LMP 05/31/2022 SpO2 98% BMI 34.54 kg/m? General Appearance: well appearing, in no acute distress, alert Skin: Skin color, texture, turgor normal for age; Eyes: conjunctiva pink and moist, no icterus, sclera white, non-injected Nose/sinus: Nares normal. Septum midline. Mucosa normal. No drainage., No sinus tenderness Neck: Thyroid normal size and symmetric without palpable nodules, Neck supple, No adenopathy Does have tenderness to tonsillar palpation Oropharynx: posterior pharynx with some redness. No exudate noted. Lymph nodes: No cervical lymphadenopathy and No supraclavicular lymphadenopathy Lungs: Lungs clear to auscultation. No wheezing, rhonchi, rales. Heart: RRR without murmur, gallop, or rubs. No ectopy Health maintenance reviewed with patient: HEPATITIS B(1 of 3 - 3-dose series) Never done HPV TESTING Never done COVID-19 VACCINE(3 -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 never saw one due to moving. She will discuss with Dr Felton at [facility] tom[place]row.TKRN History of depression 03/10/2016 08/25/2016 Overview: 03/10/2016Pt has a history of depression treated by Dr Cummins. She has been off medication since September . She believes she is doing well off medication. Discussed increased risks of depression during and and importance of reporting the development or worsening of symptoms should they occur.Pt denies ever having any suicidal thoughts or tendencies or thoughts of hurting others.TKRN History of delivery 03/10/2016 08/25/2016 Overview: Signed consent form for . Shanthi Felton MD 03/10/2016Pt had a previous C section for breech presentation. 74% likelihood she desires a . She will discuss this with Dr Felton at her visit tomorrow. TKRN Post depression 05/05/201503/11 Rh negative state in antepartum period 09/16/2014 08/25/2016 documented as of this encounter (statuses as of 09/05/2022) [facility] History of Past illness Narrative* Problem Noted Date Diagnosed Date Resolved Date PUPP (pruritic urticarial pa pules and plaques of ) 05/24/2016 08/25/2016 Short interval between pregn ancies affecting in third trimester, antepartum 03/10/2016 08/25/2016 Overview: 03/10/2016Patient delivered her previous child 03/2015. This is an unplanned .TKRN with care elsewhere, antepartum 03/10/2016 08/25/2016 Overview: Girl on us 03/10/2016 Patient is transferring care here from [place]. She recently moved back here from there. Received records from [place] from Dr Delaney. Missing are the lab reports. I called their office to get lab values faxed here. TKRN History of seizure 03/10/2016 7 Overview: 03/10/2016 She states she had a seizure in January 2016 during this . She states it was witnessed by some co-workers that she rolled her eyes and was shaking. She was seen in the E.R. and states all the testing came back negative. She was referred to a neurologist but never saw one due to moving. She will discuss with Dr Felton at [facility].TKRN History of depression 03/10/2016 08/25/2016 Overview: 03/10/2016Pt has a history of depression treated by Dr Cummins. She has been off medication since September . She believes she is doing well off medication. Discussed increased risks of depression during and and importance of reporting the development or worsening of symptoms should they occur.Pt denies ever having any suicidal thoughts or tendencies or thoughts of hurting others.TKRN History of delivery 03/10/2016 08/25/2016 Overview: Signed consent form for . Shanthi Felton MD 03/10/2016Pt had a previous C section for breech presentation. 74% likelihood she desires a . She will discuss this with Dr Felton at her visit tomorrow. TKRN Post depression 05/05/201503/11 Rh negative state in antepartum period 09/16/2014 08/25/2016 documented as of this encounter (statuses as of 09/15/2022) [facility] History of Past illness Narrative* Problem Noted Date Diagnosed Date Resolved Date PUPP (pruritic urticarial pa pules and plaques of ) 05/24/2016 08/25/2016 Short interval between pregn ancies affecting in third trimester, antepartum 03/10/2016 08/25/2016 Overview: 03/10/2016Patient delivered her previous child 03/2015. This is an unplanned .TKRN with care elsewhere, antepartum 03/10/2016 08/25/2016 Overview: Girl on us 03/10/2016 Patient is transferring care here from [place]. She recently moved back here from there. Received records from [place] from Dr Delaney. Missing are the lab reports. I called their office to get lab values faxed here. TKRN History of seizure 03/10/2016 7 Overview: 03/10/2016 She states she had a seizure in January 2016 during this . She states it was witnessed by some co-workers that she rolled her eyes and was shaking. She was seen in the E.R. and states all the testing came back negative. She was referred to a neurologist but never saw one due to moving. She will discuss with Dr Felton at [facility] tom[facility].TKRN History of depression 03/10/2016 08/25/2016 Overview: 03/10/2016Pt has a history of depression treated by Dr Cummins. She has been off medication since September . She believes she is doing well off medication. Discussed increased risks of depression during and and importance of reporting the development or worsening of symptoms should they occur.Pt denies ever having any suicidal thoughts or tendencies or thoughts of hurting others.TKRN History of delivery 03/10/2016 08/25/2016 Overview: Signed consent form for . Shanthi Felton MD 03/10/2016Pt had a previous C section for breech presentation. 74% likelihood she desires a . She will discuss this with Dr Felton at her visit tomorrow. TKRN Post depression 05/05/201503/11 Rh negative state in antepartum period 09/16/2014 08/25/2016 documented as of this encounter (statuses as of 09/23/2022) [facility] History of Past illness Narrative* Problem Noted Date Diagnosed Date Resolved Date PUPP (pruritic urticarial pa pules and plaques of ) 05/24/2016 08/25/2016 Short interval between pregn ancies affecting in third trimester, antepartum 03/10/2016 08/25/2016 Overview: 03/10/2016Patient delivered her previous child 03/2015. This is an unplanned .TKRN with care elsewhere, antepartum 03/10/2016 08/25/2016 Overview: Girl on us 03/10/2016 Patient is transferring care here from [place]. She recently moved back here from there. Received records from [place] from Dr Delaney. Missing are the lab reports. I called their office to get lab values faxed here. TKRN History of seizure 03/10/2016 7 Overview: 03/10/2016 She states she had a seizure in January 2016 during this . She states it was witnessed by some co-workers that she rolled her eyes and was shaking. She was seen in the E.R. and states all the testing came back negative. She was referred to a neurologist but never saw one due to moving. She will discuss with Dr Felton at [facility] tom[facility].TKRN History of depression 03/10/2016 08/25/2016 Overview: 03/10/2016Pt has a history of depression treated by Dr Cummins. She has been off medication since September . She believes she is doing well off medication. Discussed increased risks of depression during and and importance of reporting the development or worsening of symptoms should they occur.Pt denies ever having any suicidal thoughts or tendencies or thoughts of hurting others.TKRN History of delivery 03/10/2016 08/25/2016 Overview: Signed consent form for . Shanthi Felton MD 03/10/2016Pt had a previous C section for breech presentation. 74% likelihood she desires a . She will discuss this with Dr Felton at her visit tomorrow. TKRN Post depression 05/05/201503/11 Rh negative state in antepartum period 09/16/2014 08/25/2016 documented as of this encounter (statuses as of 09/23/2022) [facility] History of Past illness Narrative* Problem Noted Date Diagnosed Date Resolved Date PUPP (pruritic urticarial pa pules and plaques of ) 05/24/2016 08/25/2016 Short interval between pregn ancies affecting in third trimester, antepartum 03/10/2016 08/25/2016 Overview: 03/10/2016Patient delivered her previous child 03/2015. This is an unplanned .TKRN with care elsewhere, antepartum 03/10/2016 08/25/2016 Overview: Girl on us 03/10/2016 Patient is transferring care here from [place]. She recently moved back here from there. Received records from [place] from Dr Delaney. Missing are the lab reports. I called their office to get lab values faxed here. TKRN History of seizure 03/10/2016 7 Overview: 03/10/2016 She states she had a seizure in January 2016 during this . She states it was witnessed by some co-workers that she rolled her eyes and was shaking. She was seen in the E.R. and states all the testing came back negative. She was referred to a neurologist but never saw one due to moving. She will discuss with Dr Felton at [facility] tom[facility].TKRN History of depression 03/10/2016 08/25/2016 Overview: 03/10/2016Pt has a history of depression treated by Dr Cummins. She has been off medication since September . She believes she is doing well off medication. Discussed increased risks of depression during and and importance of reporting the development or worsening of symptoms should they occur.Pt denies ever having any suicidal thoughts or tendencies or thoughts of hurting others.TKRN History of delivery 03/10/2016 08/25/2016 Overview: Signed consent form for . Shnathi Felton MD 03/10/2016Pt had a previous C section for breech presentation. 74% likelihood she desires a . She will discuss this with Dr Felton at her visit tomorrow. TKRN Post depression 05/05/201503/11 Rh negative state in antepartum period 09/16/2014 08/25/2016 documented as of this encounter (statuses as of 10/01/2022) [facility] History of Past illness Narrative* Problem Noted Date Diagnosed Date Resolved Date PUPP (pruritic urticarial pa pules and plaques of ) 05/24/2016 08/25/2016 Short interval between pregn ancies affecting in third trimester, antepartum 03/10/2016 08/25/2016 Overview: 03/10/2016Patient delivered her previous child 03/2015. This is an unplanned .TKRN with care elsewhere, antepartum 03/10/2016 08/25/2016 Overview: Girl on us 03/10/2016 Patient is transferring care here from [place]. She recently moved back here from there. Received records from [place] from Dr Delaney. Missing are the lab reports. I called their office to get lab values faxed here. TKRN History of seizure 03/10/2016 7 Overview: 03/10/2016 She states she had a seizure in January 2016 during this . She states it was witnessed by some co-workers that she rolled her eyes and was shaking. She was seen in the E.R. and states all the testing came back negative. She was referred to a neurologist but never saw one due to moving. She will discuss with Dr Felton at [facility] tom[facility].TKRN History of depression 03/10/2016 08/25/2016 Overview: 03/10/2016Pt has a history of depression treated by Dr Cummins. She has been off medication since September . She believes she is doing well off medication. Discussed increased risks of depression during and and importance of reporting the development or worsening of symptoms should they occur.Pt denies ever having any suicidal thoughts or tendencies or thoughts of hurting others.TKRN History of delivery 03/10/2016 08/25/2016 Overview: Signed consent form for . Shanthi Felton MD 03/10/2016Pt had a previous C section for breech presentation. 74% likelihood she desires a . She will discuss this with Dr Felton at her visit tomorrow. TKRN Post depression 05/05/201503/11 Rh negative state in antepartum period 09/16/2014 08/25/2016 documented as of this encounter (statuses as of 11/10/2022) [facility] History of Past illness Narrative* Problem Noted Date Diagnosed Date Resolved Date PUPP (pruritic urticarial pa pules and plaques of ) 05/24/2016 08/25/2016 Short interval between pregn ancies affecting in third trimester, antepartum 03/10/2016 08/25/2016 Overview: 03/10/2016Patient delivered her previous child 03/2015. This is an unplanned .TKRN with care elsewhere, antepartum 03/10/2016 08/25/2016 Overview: Girl on us 03/10/2016 Patient is transferring care here from [place]. She recently moved back here from there. Received records from [place] from Dr Delaney. Missing are the lab reports. I called their office to get lab values faxed here. TKRN History of seizure 03/10/2016 7 Overview: 03/10/2016 She states she had a seizure in January 2016 during this . She states it was witnessed by some co-workers that she rolled her eyes and was shaking. She was seen in the E.R. and states all the testing came back negative. She was referred to a neurologist but never saw one due to moving. She will discuss with Dr Felton at [facility].TKRN History of depression 03/10/2016 08/25/2016 Overview: 03/10/2016Pt has a history of depression treated by Dr Cummins. She has been off medication since September . She believes she is doing well off medication. Discussed increased risks of depression during and and importance of reporting the development or worsening of symptoms should they occur.Pt denies ever having any suicidal thoughts or tendencies or thoughts of hurting others.TKRN History of delivery 03/10/2016 08/25/2016 Overview: Signed consent form for . Shanthi Felton MD 03/10/2016Pt had a previous C section for breech presentation. 74% likelihood she desires a . She will discuss this with Dr Felton at her visit tomorrow. TKRN Post depression 05/05/201503/11 Rh negative state in antepartum period 09/16/2014 08/25/2016 documented as of this encounter (statuses as of 12/01/2022) [facility] History of Past illness Narrative* Problem Noted Date Diagnosed Date Resolved Date PUPP (pruritic urticarial pa pules and plaques of ) 05/24/2016 08/25/2016 Short interval between pregn ancies affecting in third trimester, antepartum 03/10/2016 08/25/2016 Overview: 03/10/2016Patient delivered her previous child 03/2015. This is an unplanned .TKRN with care elsewhere, antepartum 03/10/2016 08/25/2016 Overview: Girl on us 03/10/2016 Patient is transferring care here from [place]. She recently moved back here from there. Received records from [place] from Dr Delaney. Missing are the lab reports. I called their office to get lab values faxed here. TKRN History of seizure 03/10/2016 7 Overview: 03/10/2016 She states she had a seizure in January 2016 during this . She states it was witnessed by some co-workers that she rolled her eyes and was shaking. She was seen in the E.R. and states all the testing came back negative. She was referred to a neurologist but never saw one due to moving. She will discuss with Dr Felton at [facility] tom[facility].TKRN History of depression 03/10/2016 08/25/2016 Overview: 03/10/2016Pt has a history of depression treated by Dr Cummins. She has been off medication since September . She believes she is doing well off medication. Discussed increased risks of depression during and and importance of reporting the development or worsening of symptoms should they occur.Pt denies ever having any suicidal thoughts or tendencies or thoughts of hurting others.TKRN History of delivery 03/10/2016 08/25/2016 Overview: Signed consent form for . Shanthi Felton MD 03/10/2016Pt had a previous C section for breech presentation. 74% likelihood she desires a . She will discuss this with Dr Felton at her visit tomorrow. TKRN Post depression 05/05/201503/11 Rh negative state in antepartum period 09/16/2014 08/25/2016 documented as of this encounter (statuses as of 12/14/2022) [facility] History of Past illness Narrative* Problem Noted Date Diagnosed Date Resolved Date PUPP (pruritic urticarial pa pules and plaques of ) 05/24/2016 08/25/2016 Short interval between pregn ancies affecting in third trimester, antepartum 03/10/2016 08/25/2016 Overview: 03/10/2016Patient delivered her previous child 03/2015. This is an unplanned .TKRN with care elsewhere, antepartum 03/10/2016 08/25/2016 Overview: Girl on us 03/10/2016 Patient is transferring care here from [place]. She recently moved back here from there. Received records from [place] from Dr Delaney. Missing are the lab reports. I called their office to get lab values faxed here. TKRN History of seizure 03/10/2016 7 Overview: 03/10/2016 She states she had a seizure in January 2016 during this . She states it was witnessed by some co-workers that she rolled her eyes and was shaking. She was seen in the E.R. and states all the testing came back negative. She was referred to a neurologist but never saw one due to moving. She will discuss with Dr Felton at [facility].TKRN History of depression 03/10/2016 08/25/2016 Overview: 03/10/2016Pt has a history of depression treated by Dr Cummins. She has been off medication since September . She believes she is doing well off medication. Discussed increased risks of depression during and and importance of reporting the development or worsening of symptoms should they occur.Pt denies ever having any suicidal thoughts or tendencies or thoughts of hurting others.TKRN History of delivery 03/10/2016 08/25/2016 Overview: Signed consent form for . Shanthi Felton MD 03/10/2016Pt had a previous C section for breech presentation. 74% likelihood she desires a . She will discuss this with Dr Felton at her visit tomorrow. TKRN Post depression 05/05/201503/11 Rh negative state in antepartum period 09/16/2014 08/25/2016 documented as of this encounter (statuses as of 12/29/2022) [facility] History of Past illness Narrative* Problem Noted Date Diagnosed Date Resolved Date PUPP (pruritic urticarial pa pules and plaques of ) 05/24/2016 08/25/2016 Short interval between pregn ancies affecting in third trimester, antepartum 03/10/2016 08/25/2016 Overview: 03/10/2016Patient delivered her previous child 03/2015. This is an unplanned .TKRN with care elsewhere, antepartum 03/10/2016 08/25/2016 Overview: Girl on us 03/10/2016 Patient is transferring care here from [place]. She recently moved back here from there. Received records from [place] from Dr Delaney. Missing are the lab reports. I called their office to get lab values faxed here. TKRN History of seizure 03/10/2016 7 Overview: 03/10/2016 She states she had a seizure in January 2016 during this . She states it was witnessed by some co-workers that she rolled her eyes and was shaking. She was seen in the E.R. and states all the testing came back negative. She was referred to a neurologist but never saw one due to moving. She will discuss with Dr Felton at [facility] tom[facility].TKRN History of depression 03/10/2016 08/25/2016 Overview: 03/10/2016Pt has a history of depression treated by Dr Cummins. She has been off medication since September . She believes she is doing well off medication. Discussed increased risks of depression during and and importance of reporting the development or worsening of symptoms should they occur.Pt denies ever having any suicidal thoughts or tendencies or thoughts of hurting others.TKRN History of delivery 03/10/2016 08/25/2016 Overview: Signed consent form for . Shanthi Felton MD 03/10/2016Pt had a previous C section for breech presentation. 74% likelihood she desires a . She will discuss this with Dr Felton at her visit tomorrow. TKRN Post depression 05/05/201503/11 Rh negative state in antepartum period 09/16/2014 08/25/2016 documented as of this encounter (statuses as of 01/05/2023) [facility] History of Past illness Narrative* Problem Noted Date Diagnosed Date Resolved Date PUPP (pruritic urticarial pa pules and plaques of ) 05/24/2016 08/25/2016 Short interval between pregn ancies affecting in third trimester, antepartum 03/10/2016 08/25/2016 Overview: 03/10/2016Patient delivered her previous child 03/2015. This is an unplanned .TKRN with care elsewhere, antepartum 03/10/2016 08/25/2016 Overview: Girl on us 03/10/2016 Patient is transferring care here from [place]. She recently moved back here from there. Received records from [place] from Dr Delaney. Missing are the lab reports. I called their office to get lab values faxed here. TKRN History of seizure 03/10/2016 7 Overview: 03/10/2016 She states she had a seizure in January 2016 during this . She states it was witnessed by some co-workers that she rolled her eyes and was shaking. She was seen in the E.R. and states all the testing came back negative. She was referred to a neurologist but never saw one due to moving. She will discuss with Dr Felton at [facility] tomorrrow.TKRN History of depression 03/10/2016 08/25/2016 Overview: 03/10/2016Pt has a history of depression treated by Dr Cummins. She has been off medication since September . She believes she is doing well off medication. Discussed increased risks of depression during and and importance of reporting the development or worsening of symptoms should they occur.Pt denies ever having any suicidal thoughts or tendencies or thoughts of hurting others.TKRN History of delivery 03/10/2016 08/25/2016 Overview: Signed consent form for . Shanthi Felton MD 03/10/2016Pt had a previous C section for breech presentation. 74% likelihood she desires a . She will discuss this with Dr Felton at her visit tomorrow. TKRN Post depression 05/05/201503/11 Rh negative state in antepartum period 09/16/2014 08/25/2016 documented as of this encounter (statuses as of 02/10/2023) [facility] History of Past illness Narrative* Problem Noted Date Diagnosed Date Resolved Date PUPP (pruritic urticarial pa pules and plaques of ) 05/24/2016 08/25/2016 Short interval between pregn ancies affecting in third trimester, antepartum 03/10/2016 08/25/2016 Overview: 03/10/2016Patient delivered her previous child 03/2015. This is an unplanned .TKRN with care elsewhere, antepartum 03/10/2016 08/25/2016 Overview: Girl on us 03/10/2016 Patient is transferring care here from [place]. She recently moved back here from there. Received records from [place] from Dr Delaney. Missing are the lab reports. I called their office to get lab values faxed here. TKRN History of seizure 03/10/2016 7 Overview: 03/10/2016 She states she had a seizure in January 2016 during this . She states it was witnessed by some co-workers that she rolled her eyes and was shaking. She was seen in the E.R. and states all the testing came back negative. She was referred to a neurologist but never saw one due to moving. She will discuss with Dr Felton at [facility] tomorrrow.TKRN History of depression 03/10/2016 08/25/2016 Overview: 03/10/2016Pt has a history of depression treated by Dr Cummins. She has been off medication since September . She believes she is doing well off medication. Discussed increased risks of depression during and and importance of reporting the development or worsening of symptoms should they occur.Pt denies ever having any suicidal thoughts or tendencies or thoughts of hurting others.TKRN History of delivery 03/10/2016 08/25/2016 Overview: Signed consent form for . Shanthi Felton MD 03/10/2016Pt had a previous C section for breech presentation. 74% likelihood she desires a . She will discuss this with Dr Felton at her visit tomorrow. TKRN Post depression 05/05/201503/11 Rh negative state in antepartum period 09/16/2014 08/25/2016 documented as of this encounter (statuses as of 04/04/2023) [facility] No data available for this section [facility] Evaluation note* Diagnosis Anemia, unspecified type- Primary [facility] Recurrent streptococcal pharyngitis- Primary Sore throat Acute pharyngitis Acute cough Anemia, unspecified type [facility] Diagnosis Subacute cough Cough [facility] Diagnosis Mild persistent asthma without complication- Primary Unspecified asthma Seasonal allergic rhinitis due to other allergic trigger [facility]* Diagnosis Mild persistent asthma without complication Unspecified [facility] Anxiety and depression- Primary Dysthymic disorder Attention deficit disorder (ADD) in adult documented in this encounter [facility] note* Diagnosis Anxiety and depression- Primary Dysthymic disorder Attention deficit disorder (ADD) in adult Encounter for immunization Need for other specified prophylactic vaccination against single bacterial disease documented in this encounter [facility] note* Diagnosis Attention deficit disorder (ADD) in adult- Primary documented in this encounter [facility] note* Diagnosis Mild persistent asthma without complication- Primary Unspecified asthma Seasonal allergic rhinitis due to other allergic trigger Observed sleep apnea Unspecified sleep apnea documented in this encounter [facility] for referral (narrative)* Outpatient Procedure (Routine) - Authorized Specialty Diagnoses / Procedures Referred By En reyes Referred To Contact [facility] Diagnoses Mild persistent asthma without complication Procedures NITRIC OXIDE, EXHALED NITRIC OXIDE GAS DETERMINATION Jaimie Castillo MD [address] [place] [address] [place] [address] Referral ID Status Reason Start Date Expiration Date Visits Requested Visits Authorized [id number] Authorized Auto-Generat ed Referral 09/23/2022 10/23/2023 1 1 * Medication Prior Authorization - Closed Specialty Diagnoses / Procedures Referred By En reyes Referred To Contact Jaimie Castillo MD [address] [place] [address] Referral ID Status Reason Start Date Expiration Date Visits Re quested Visits Authorized [id number] Closed 1 1 * Outpatient Procedure (Routine) - Closed Specialty Diagnoses / Procedures Referred By En reyes Referred To Contact [facility] [place] Diagnoses Subacute cough Procedures NITRIC OXIDE, EXHALED NITRIC OXIDE GAS DETERMINATION Jaimie Castillo MD [address] [place] [address] Respiratory [place] [phone] Referral ID Status Reason Start Date Expiration Date V isits Requested Visits Authorized [id number] Closed Auto-Generate d Referral 09/23/2022 10/23/2023 1 1 [facility] for visit Narrative* Outpatient Procedure (Routine) - Closed Specialty Diagnoses / Procedures Referred By Contac t Referred To Contact [facility] Diagnoses Mild persistent asthma without complication Procedures NITRIC OXIDE, EXHALED NITRIC OXIDE GAS DETERMINATION Jaimie Castillo MD [address] [place] [address] Respiratory [place] [address] [place] [address] Referral ID Status Reason Start Date Expiration Date V isits Requested Visits Authorized [id number] Closed Auto-Generate d Referral 09/23/2022 10/23/2023 1 1 [facility] Summary Purpose Family History No Family History Records FoundNo Family History Records FoundNo Family History Records Found No data available for this section No Family History Records FoundNo Family History Records Found Advance Directives No Advanced Directives Records FoundNo Advanced Directives Records FoundNo Advanced Directives Records FoundNo Advanced Directives Records FoundNo Advanced Directives Records Found Reason for Referral Specialty Diagnoses / Procedures Referred By Contac t Referred To Contact Diagnoses Attention deficit disorder (ADD) in adult Older, SCOTT Gibson.CYBER SECURITY MANAGER [address] [place] [address] Referral ID Status Reason Start Date Expiration Date Visits Re quested Visits Authorized [id number] Closed 1 1 Additional Source Comments INFORMATION SOURCE (unrecogn ized section and content) DATE CREATED AUTHOR AUTHOR'S ORGANIZ ATION 12/10/2019 [facility] DATE CREATED AUTHOR AUTHOR'S ORGANIZ ATION 01/01/2020 [facility] DATE CREATED AUTHOR AUTHOR'S ORGANIZ ATION 10/17/2022 [facility] ([place]) DATE CREATED AUTHOR AUTHOR'S ORGANIZ ATION 04/06/2023 [facility] Source Comments (unrecognize d section and content) In the event this informatio n is protected by the Federal Confidentiality of Alcohol and Drug Abuse Patient Records regulations: The Federal rules restrict any use of the information to criminally investigate or prosecute any alcohol or drug abuse patient.[facility] the event this information is protected by the Federal Confidentiality of Alcohol and Drug Abuse Patient Records regulations: The Federal rules restrict any use of the information to criminally investigate or prosecute any alcohol or drug abuse patient.[facility] the event this information is protected by the Federal Confidentiality of Alcohol and Drug Abuse Patient Records regulations: The Federal rules restrict any use of the information to criminally investigate or prosecute any alcohol or drug abuse patient.[facility] the event this information is protected by the Federal Confidentiality of Alcohol and Drug Abuse Patient Records regulations: The Federal rules restrict any use of the information to criminally investigate or prosecute any alcohol or drug abuse patient.[facility] the event this information is protected by the Federal Confidentiality of Alcohol and Drug Abuse Patient Records regulations: The Federal rules restrict any use of the information to criminally investigate or prosecute any alcohol or drug abuse patient.[facility] the event this information is protected by the Federal Confidentiality of Alcohol and Drug Abuse Patient Records regulations: The Federal rules restrict any use of the information to criminally investigate or prosecute any alcohol or drug abuse patient.[facility] the event this information is protected by the Federal Confidentiality of Alcohol and Drug Abuse Patient Records regulations: The Federal rules restrict any use of the information to criminally investigate or prosecute any alcohol or drug abuse patient.[facility] the event this information is protected by the Federal Confidentiality of Alcohol and Drug Abuse Patient Records regulations: The Federal rules restrict any use of the information to criminally investigate or prosecute any alcohol or drug abuse patient.[facility] the event this information is protected by the Federal Confidentiality of Alcohol and Drug Abuse Patient Records regulations: The Federal rules restrict any use of the information to criminally investigate or prosecute any alcohol or drug abuse patient.[facility] the event this information is protected by the Federal Confidentiality of Alcohol and Drug Abuse Patient Records regulations: The Federal rules restrict any use of the information to criminally investigate or prosecute any alcohol or drug abuse patient.[facility] the event this information is protected by the Federal Confidentiality of Alcohol and Drug Abuse Patient Records regulations: The Federal rules restrict any use of the information to criminally investigate or prosecute any alcohol or drug abuse patient.[facility] Center[facility] the event this information is protected by the Federal Confidentiality of Alcohol and Drug Abuse Patient Records regulations: The Federal rules restrict any use of the information to criminally investigate or prosecute any alcohol or drug abuse patient.[facility] Center[facility] the event this information is protected by the Federal Confidentiality of Alcohol and Drug Abuse Patient Records regulations: The Federal rules restrict any use of the information to criminally investigate or prosecute any alcohol or drug abuse patient.[facility] the event this information is protected by the Federal Confidentiality of Alcohol and Drug Abuse Patient Records regulations: The Federal rules restrict any use of the information to criminally investigate or prosecute any alcohol or drug abuse patient.[facility] the event this information is protected by the Federal Confidentiality of Alcohol and Drug Abuse Patient Records regulations: The Federal rules restrict any use of the information to criminally investigate or prosecute any alcohol or drug abuse patient.[facility] Center[facility] the event this information is protected by the Federal Confidentiality of Alcohol and Drug Abuse Patient Records regulations: The Federal rules restrict any use of the information to criminally investigate or prosecute any alcohol or drug abuse patient.[facility] Reason for Visit (unrecogniz ed section and content) Reason Comments Recheck Strep throat follow up, cough Reason Comments Results labs Reason Comments Spirometry Specialty Diagnoses / Procedures Referred By Contac t Referred To Contact [facility] [place] Diagnoses Subacute cough Procedures SPIROMETRY WITH DILATOR IF OBSTRUCTED BRNCDILAT RSPSE SPMTRY PRE&POST-BRNCDILAT ADMN Britt Engel, REFRIGERATION OPERATOR.BIRD TENDER [address] [place] [address] Respiratory [place] [phone] Referral ID Status Reason Start Date Expiration Date V isits Requested Visits Authorized [id number] Closed Auto-Generate d Referral 09/13/2022 10/13/2023 1 1 Specialty Diagnoses / Procedures Referred By Contac t Referred To Contact [facility] [place] Diagnoses Subacute cough Procedures NITRIC OXIDE, EXHALED NITRIC OXIDE GAS DETERMINATION Jaimie Castillo MD [address] [place] [address] [place] [phone] Referral ID Status Reason Start Date Expiration Date Visits Requested Visits Authorized [id number] Pending Review Auto-Generat ed Referral 09/23/2022 10/23/2023 1 1 Reason Comments New Patient Cough Reason Comments Recheck 3 month follow up Reason Comments Patient Question Reason Comments Recheck Follow up Reason Comments Medication Problem Reason Comments Recheck Medication follow up Reason Comments Asthma Care Teams (unrecognized sec tion and content) Auto Salvage Worker Relationship Specialty Start Date End Date Lili Goddard MD [address] [place] [address] PCP - General Internal Medicine 01/28/16 Auto Salvage Worker Relationship Specialty Start Date End Date Lili Goddard MD [address] [place] [address] PCP - General Internal Medicine 01/28/16 Auto Salvage Worker Relationship Specialty Start Date End Date Lili Goddard MD [address] [place] [address] PCP - General Internal Medicine 01/28/16 Auto Salvage Worker Relationship Specialty Start Date End Date Lili Goddard MD [address] [place] [address] PCP - General Internal Medicine 01/28/16 Auto Salvage Worker Relationship Specialty Start Date End Date Lili Goddard MD [address] [place] [address] PCP - General Internal Medicine 01/28/16 Auto Salvage Worker Relationship Specialty Start Date End Date Lili Goddard MD [address] [place] [address] PCP - General Internal Medicine 01/28/16 Auto Salvage Worker Relationship Specialty Start Date End Date Lili Goddard MD [address] [place] [address] PCP - General Internal Medicine 01/28/16 Auto Salvage Worker Relationship Specialty Start Date End Date Lili Goddard MD [address] [place] [address] PCP - General Internal Medicine 01/28/16 Auto Salvage Worker Relationship Specialty Start Date End Date Lili Goddard MD [address] [place] [address] PCP - General Internal Medicine 01/28/16 Auto Salvage Worker Relationship Specialty Start Date End Date Llii Goddard MD [address] [place] [address] PCP - General Internal Medicine 01/28/16 Auto Salvage Worker Relationship Specialty Start Date End Date Lili Goddard MD [address] [facility] [place] [address] PCP - General Internal Medicine 01/28/16 Auto Salvage Worker Relationship Specialty Start Date End Date Lili Goddard MD [address] [facility] [place] [address] PCP - General Internal Medicine 01/28/16 FOR RECORDS PERTAINING TO PATIENTS WHO ARE OR HAVE BEEN ENROLLED IN A CHEMICAL DEPENDENCY/SUBSTANCEABUSE PROGRAM, SOME INFORMATION MAY BE OMITTED. This clinical summary was aggregated from multiple sources. Caution should be exercised in using it in the provision of clinical care. This summary normalizes information from multiple sources, and as a consequence, information in this document may materially change the coding, format and clinical context of patient data. In addition, data may be omitted in some cases. CLINICAL DECISIONS SHOULD BE BASED ON THE PRIMARY CLINICAL RECORDS. [facility]. provides no warranty or guarantee of the accuracy or completeness of information in this document.
== END | disposition home or self-care (01) ==
LOC: SL 20:01
PROVIDERS: PCP Internal Medicine
DX: R06.83 Snoring (principal); G47.9 Sleep disorder, unspecified
CPT/HCPCS: 95810

== ENCOUNTER → 2024-09-18 | Outpatient (CLI) | payer OTHER, SELFPAY ==
[2024-09-18 12:27] LABS: Hematocrit 30.9 % (37-47); Hemoglobin 9.2 g/dL (12.0-15.0); Immature Granulocytes Count 0.010 X10^3/uL (0.0-0.0); Mean Corp Hgb Conc 29.8 g/dL (32-36); Mean Corpuscular Volume 73.6 fL (81-99); Mean Platelet Vol. 9.5 fl (6.2-12.0); NRBC Flagged by Analyzer 0 % (0-5); Platelet Count 458 K/mm3 (150-450); RBC Distribution Width CV 15.2 % (11.6-14.6); RBC Distribution Width SD 40.1 fl (35.1-43.9); Red Blood Count 4.20 M/mm3 (4.2-5.4); White Blood Count 6.6 K/mm3 (4.4-11.0)
[2024-09-18 13:36] LABS: AST(SGOT) 41 U/L (<=31); Alanine Aminotransfer ALT/SGPT 39 U/L (<=34); Albumin, Serum 4.1 g/dL (3.5-5.0); Alkaline Phosphatase 68 U/L (35-104); Anion Gap 13 (5-15); BUN 14 mg/dL (4-19); BUN/Creat Ratio 18.9 RATIO (10-20); Calcium,Total 9.1 mg/dL (7.6-11.0); Carbon Dioxide 20.9 mmol/L (21.0-32.0); Chloride 104 mmol/L (98-108); Cholesterol 129 mg/dL (<=200); Ferritin 8 ng/mL (22-378); Follicle Stimulating Hormone 5.5 mIU/mL; Globulin 3.2 g/dL (2.2-4.2); Glucose 86 mg/dL (70-99); Low Density Lipoprotein Calc. 49 mg/dL; Potassium 3.9 mmol/L (3.3-5.1); Triglycerides 122 mg/dL; Very Low Density Lipoprotein 24 mg/dL (5-40); Vitamin B12 593 pg/mL (180-914); Vitamin D,25 Hydroxy 29.3 ng/mL (30-100); cholesterol:hdl ratio screen 2.32
[2024-09-18 15:23] LABS: Iron 20 ug/dL (50-170); Iron Binding Capacity,Total 427 ug/dL (250-450); Iron Binding Capacity,Unsat 407 ug/dL (228-428); Magnesium 1.8 mg/dL (1.5-2.2)
[2024-09-19 08:09] LABS: PROLACTIN 7.6 ng/mL (4.8-33.4)
== END | disposition home or self-care (01) ==
LOC: VSLAB 10:26
PROVIDERS: PCP Family Medicine; Visit Provider Family Medicine
DX: N93.9 Abnormal uterine and vaginal bleeding, unspecified (principal); F90.9 Attention-deficit hyperactivity disorder, unspecified type; E66.9 Obesity, unspecified
CPT/HCPCS: 36415; 80053; 80061; 82306; 82607; 82627; 82670; 82728; 83001; 83002; 83036; 83540; 83550; 83735; 84146; 84443; 85025; 82626

== ENCOUNTER 2024-09-29 18:04 | Emergency (ER) | payer OTHER, SELFPAY ==
[2024-09-29 18:05] VITALS: BP 127/91; PULSE 114; RESP 18; TEMP 37.7; O2SAT 99; BMI 39.5
--- NOTE | 2024-09-29 18:34 | EX.ED.DYSGE1 ---
HPI History of Present Illness Chief Complaint: General Illness Informant: patient Onset/Context/Timing Onset: Today Context: Gradual Onset Timing: Continuous Quality: Dizzy, lightheaded Location: Generalized Worsened by: Laying down Relieved by: Nothing Narrative Narrative: Patient presents with dizziness and headache that began today. Patient states she feels dizzy. Patient describes it as feeling lightheaded. Patient states it is worse when she lays down. Patient states nothing makes it better. Patient admits to some subjective fevers and chills. Patient also admits to sore throat and rhinorrhea. Patient admits to a mild cough. Patient denies any chest pain or shortness of breath. Patient states her headache is mainly over the left side of her head. [facility] Medical History Carpal tunnel syndrome of right wrist Depression PCOS (polycystic ovarian syndrome) Home Medications ?Medication ?Instructions ?Recorded ?Last Taken ?Type methylphenidate HCl 10 mg tablet 10 mg PO BID 03/22/23 Unknown History Allergy/AdvReac Type Severity Reaction Status Date / Time hydrocodone (From [place]) Allergy Hives Verified 09/29/24 18:07 naproxen Allergy Rash Verified 09/29/24 18:07 Penicillins Allergy Hives Verified 09/29/24 18:07 Family History Grandfather Diabetes Heart disease Surgical History removal of gallbladder delivery delivered Social History Smoking Status: Current every day smoker tobacco type: e-cigarettes alcohol intake: never substance use type: does not use caffeine: Yes what type of physical activity do you participate in: none seatbelt use: sometimes do you feel safe at home: Yes additional social history: Single ROS ROS ED Constitutional Constitutional ED: Reports chills, fever(s) and subjective Eyes Eyes: Denies blurry vision or change in vision ENT ENT ED: Reports rhinorrhea and sore throat Cardiovascular Cardiovascular: Denies chest pain or palpitations Respiratory/Chest Respiratory/Chest: Reports cough; Denies dyspnea Gastrointestinal Gastrointestinal: Denies nausea or vomiting Genitourinary Genitourinary ED: Denies dysuria or hematuria Musculoskeletal Musculoskeletal: Denies back pain or neck pain Integumentary Denies abscess or rash Neurologic Neurologic: Reports headache(s); Denies weakness Allergic/Immunologic Allergic/Immunologic ED: Denies mouth swelling or urticaria EXAM Physical Exam Const Vital Signs: 09/29/24 18:05 09/29/24 19:07 09/29/24 20:09 Temperature 100 F H 99.3 F H 99.6 F H Temperature Source Oral Oral Oral Pulse Rate 114 H 100 98 Respiratory Rate 18 16 16 Blood Pressure 127/91 H 135/80 H 139/116 H Blood Pressure Mean 103 98 123 Pulse Ox 99 100 100 Oxygen Delivery Method Room Air Room Air Room Air 09/29/24 21:00 09/29/24 22:00 09/29/24 22:00 Temperature 101 F H 99.7 F H 99.7 F H Temperature Source Oral Oral Oral Pulse Rate 86 103 H 98 Respiratory Rate 16 16 16 Blood Pressure 120/61 94/76 94/76 Blood Pressure Mean 80 82 82 Pulse Ox 98 100 100 Oxygen Delivery Method Room Air Room Air Room Air 09/29/24 23:06 Temperature 99.7 F H Temperature Source Pulse Rate 92 Respiratory Rate 16 Blood Pressure 143/73 H Blood Pressure Mean 96 Pulse Ox 98 Oxygen Delivery Method Positive well nourished and well developed Constitutional Narrative: BMI is 39.5. General Appearance ED: well developed and NAD HEENT Reports moist mucous membranes Neck supple and no JVD Resp normal respiratory effort and clear to auscultation bilaterally Cardio regular rhythm Rate: tachycardic GI non-tender and non-distended Palpation: soft Extremity normal to inspection Neuro oriented x3, CN's II-XII intact bilaterally and no sensory deficits noted Sensorium / Orientation: alert Motor Exam: strength 5/5 throughout Psych mental status grossly normal MDM MDM MDM Narrative Medical decision making narrative: Differential diagnosis includes pneumonia, bronchitis, viral illness, electrolyte abnormality, and urinary tract infection. CBC will be obtained to assess for leukocytosis and anemia. Basic metabolic profile will be obtained to assess for electrolyte abnormality and renal function. Urinalysis will be obtained to assess for urinary tract infection and hematuria. COVID-19, influenza, and RSV PCR will be obtained to assess for viral illness. Chest x-ray will be obtained to assess for pneumonia and bronchitis. Lab Data Attestation: I reviewed the patient's lab results. Lab results narrative: CBC was reviewed. There is a mild anemia with a hemoglobin of 9.4 and hematocrit of 31.1. The remainder is within normal limits. Basic metabolic profile was reviewed and was within normal limits. Urinalysis was reviewed. There is no evidence of urinary tract infection or hematuria. COVID-19 PCR was reviewed and was negative. Influenza PCR was reviewed and was negative for influenza A and influenza B. RSV PCR was reviewed and was negative. Labs: Laboratory Results - last 24 hr 09/29/24 09/29/24 19:00 19:37 WBC 10.5 RBC 4.26 Hgb 9.4 L Hct 31.1 L MCV 73.0 L MCH 22.1 L MCHC 30.2 L RDW Std Deviation 42.0 RDW Coeff of [place] 16.0 H Plt Count 374 MPV 8.9 Immature Gran % (Auto) 0.300 Neut % (Auto) 74.8 H Lymph % (Auto) 11.5 L [place] % (Auto) 6.7 Eos % (Auto) 6.1 H Baso % (Auto) 0.6 Absolute Neuts (auto) 7.8 H Absolute Lymphs (auto) 1.20 Nucleated RBC % 0 Sodium 140 Potassium 3.8 Chloride 104 Carbon Dioxide 24.7 Anion Gap 11 BUN 12 Creatinine 0.75 Estim Creat Clear Calc 118.90 Est GFR (MDRD) Non-Af 107 BUN/Creatinine Ratio 16.2 Glucose 93 Calcium 9.0 Urine Color Straw Urine Clarity Clear Urine pH 6.5 Ur Specific [place] 1.015 Urine Protein Negative Urine Glucose (UA) Normal Urine Ketones Negative Urine Occult Blood Negative Urine Nitrite Negative Urine Bilirubin Negative Urine Urobilinogen Normal Ur Leukocyte Esterase Negative Urine RBC 0-5 SEEN Urine WBC 0-5 SEEN Ur Squamous Epith Cells 0-5 SEEN Urine Bacteria 1+ Urine Mucus 0 SEEN Radiography Chest X-Ray - ED: 2 View, Read by ED Physician, Read by Radiologist and No Acute Disease Diagnostic Testing: Clinical Impression(s) from Imaging Studies Chest X-Ray 09/29/24 19:20 IMPRESSION: NEGATIVE CHEST Reading Location: [id number] and lateral chest x-ray was obtained. There are 2 views. On my independent interpretation, lung dorantes are clear. There is normal cardiac silhouette. Bony thorax is normal. There is no acute process noted. Radiologist also interpreted the x-ray and agrees. Treatment and Re-Evaluation :: Patient was given a dose of Tylenol here. Patient was advised of her findings. Patient was advised that this is most likely a viral upper respiratory infection. Patient was instructed to take Tylenol or ibuprofen as needed for any fevers. Patient was instructed to drink plenty of fluids. Patient was instructed to follow-up with her primary care physician in 5 to 7 days. Patient understood and was agreeable with the plan. All questions were answered. Discharge Plan Triage Chief Complaint: General Illness ED Provider: Jack Simmons Dx/Rx/DC Orders Clinical Impression: Viral illness, Fever Instructions: ED Fever Control (Adult), ED Viral Syndrome (Adult) Prescriptions: No Action methylphenidate HCl 10 mg tablet 10 mg PO BID Patient Comments: TAKE 1 TABLET BY MOUTH 2 TIMES A DAY FOR 7 DAYS Primary Care Provider: Carrol Iqbal Referrals: Carrol Iqbal, DO [Primary Care Provider] - 3-5 Days Print Language: [place] Disposition Disposition: Home, Self Care Discharge Date/Time: 09/29/24 23:10
[2024-09-29 19:06] LABS: Hematocrit 31.1 % (37-47); Hemoglobin 9.4 g/dL (12.0-15.0); Immature Granulocytes Count 0.030 X10^3/uL (0.0-0.0); Mean Corp Hgb Conc 30.2 g/dL (32-36); Mean Corpuscular Volume 73.0 fL (81-99); Mean Platelet Vol. 8.9 fl (6.2-12.0); NRBC Flagged by Analyzer 0 % (0-5); Platelet Count 374 K/mm3 (150-450); RBC Distribution Width CV 16.0 % (11.6-14.6); RBC Distribution Width SD 42.0 fl (35.1-43.9); Red Blood Count 4.26 M/mm3 (4.2-5.4); White Blood Count 10.5 K/mm3 (4.4-11.0)
[2024-09-29 19:07] VITALS: BP 135/80; PULSE 100; RESP 16; TEMP 37.4; O2SAT 100
--- OUTSIDE RECORDS SUMMARY | 2024-09-29 19:17 | XMS RPT_ITS | CCD ---
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 Other complications of (6 sources) Anemia of ; Translations: [Anemia complicating , unspecified trimester] 07-03-2018 Chronic Other complications of (12 sources) Urinary tract infection in ; Translations: [Unspecified infection of urinary tract in , unspecified trimester] 07-03-2018 Episodic Other complications of (6 sources) Group B Streptococcus carrier; Translations: [Streptococcus B carrier state complicating ] 07-03-2018 Episodic Other complications of (6 sources) Excessive growth affecting management of mother; Translations: [Maternal care for excessive growth, unspecified trimester, not applicable or unspecified] 07-03-2018 Episodic Other connective tissue disease (6 sources) Pain in upper limb; Translations: [Pain in right arm] 08-19-2018 Episodic Other endocrine disorders (6 sources) Polycystic ovary; Translations: [Polycystic ovarian syndrome] 08-28-2018 Chronic Other endocrine disorders (1 source) Polycystic ovaries 10-20-2013 Chronic Other female genital disorders (1 source) Abnormal uterine and vaginal bleeding, unspecified; Translations: [Abnormal uterine and vaginal bleeding, unspecified] Onset: 09-18-2024 Chronic Other injuries and conditions due to external causes (6 sources) Injury of head; Translations: [Unspecified injury of head, initial encounter] 01-16-2020 Episodic Other injuries and conditions due to external causes (4 sources) Injury of knee; Translations: [Unspecified injury of left lower leg, initial encounter] 08-03-2020 Episodic Other injuries and conditions due to external causes (2 sources) Injury of left knee; Translations: [Unspecified injury of left lower leg, initial encounter] 08-03-2020 Episodic Other lower respiratory disease (4 sources) Cough; Translations: [Acute cough] Onset: 09-21-2022 08-30-2022 Episodic Other nervous system disorders (5 sources) Carpal tunnel syndrome; Translations: [Carpal tunnel syndrome, right upper limb] 08-28-2018 Chronic Other nervous system disorders (1 source) Carpal tunnel syndrome of right wrist; Translations: [Carpal tunnel syndrome, right upper limb] 08-28-2018 Chronic Other non-traumatic joint disorders (6 sources) Pain in right shoulder; Translations: [Right shoulder pain] 05-14-2020 Episodic Other non-traumatic joint disorders (1 source) Ankle pain; Translations: [Pain in right ankle and joints of right foot] 11-11-2020 Episodic Other nutritional; endocrine; and metabolic disorders (2 sources) Obesity; Translations: [Obesity, unspecified] 05-03-2023 Chronic Other nutritional; endocrine; and metabolic disorders (1 source) Body mass index 40+ - severely obese; Translations: [Morbid (severe) obesity due to excess calories] 08-10-2023 Chronic Other nutritional; endocrine; and metabolic disorders (2 sources) Obesity, unspecified; Translations: [Class 2 obesity with body mass index (BMI) of 38.0 to 38.9 in adult, unspecified obesity type, unspecified whether serious comorbidity present] Onset: 05-03-2023 Chronic Other nutritional; endocrine; and metabolic disorders (1 source) Body mass index (BMI) 38.0-38.9, adult; Translations: [Class 2 obesity with body mass index (BMI) of 38.0 to 38.9 in adult, unspecified obesity type, unspecified whether serious comorbidity present] Onset: 05-03-2023 Chronic Other screening for suspected conditions (not mental disorders or infectious disease) (5 sources) No current problems or disability 08-03-2016 Other upper respiratory disease (20 sources) Allergic rhinitis; Translations: [Allergic rhinitis, unspecified] Onset: 09-23-2022 09-23-2022 Chronic Other upper respiratory disease (2 sources) Seasonal allergic rhinitis; Translations: [Other allergic rhinitis] 09-23-2022 Chronic Other upper respiratory infections (10 sources) Pharyngitis; Translations: [Acute pharyngitis, unspecified] 08-08-2022 Episodic Residual codes; unclassified (1 source) Sleep apnea; Translations: [Sleep apnea, unspecified] 04-04-2023 Chronic Skin and subcutaneous tissue infections (12 sources) Cellulitis of abdominal wall ; Translations: [Cellulitis of abdominal wall] 07-03-2018 Episodic Sprains and strains (20 sources) Strain of thoracic region; Translations: [Strain of muscle and tendon of back wall of thorax, initial encounter] 02-24-2022 Episodic Superficial injury; contusion (20 sources) Contusion of thoracic spine; Translations: [Contusion of unspecified back wall of thorax, initial encounter] 02-24-2022 Episodic Unclassified (7 sources) Drug therapy finding; Translations: [alf (current) use of antibiotics] Onset: 08-08-2016 08-08-2016 Past or Other Problems Problem Classification Problem Date Documented Date Episodic/Chronic Bacterial infection; unspecified site (7 sources) Infection due to anaerobic bacteria; Translations: [Other specified bacterial agents as the cause of diseases classified elsewhere] Onset: 08-08-2016 08-08-2016 Episodic Miscellaneous mental health disorders (7 sources) depression; Translations: [ depression] Onset: 05-05-2015 Resolved: 03-11-2016 05-07-2015 Episodic Open wounds of head; neck; and [...] surgical wound] Onset: 08-08-2016 08-08-2016 Episodic Other complications of (12 sources) High risk ; Translations: [Supervision of high risk , unspecified, unspecified trimester] Onset: 03-10-2016 Resolved: 08-25-2016 07-03-2018 Episodic Other complications of (12 sources) RhD negative; Translations: [Other specified related conditions, unspecified trimester] Onset: 09-16-2014 Resolved: 08-25-2016 07-03-2018 Episodic Other complications of (6 sources) Pruritic urticarial papules and plaques of (PUPPP); Translations: [Other specified complications of , unspecified as to episode of care or not applicable] Onset: 05-24-2016 Resolved: 08-25-2016 08-25-2016 Episodic Other and delivery including normal (13 sources) Normal ; Translations: [Encounter for supervision of normal , unspecified, unspecified trimester] Onset: 03-10-2016 Resolved: 08-25-2016 07-03-2018 Episodic Comment on above: System added from do cumentation. Status documented as Yes on Admission Residual codes; unclassified (3 sources) History of clinical finding in subject; Translations: [Personal history of other specified conditions] Onset: 03-10-2016 Resolved: 08-25-2016 08-25-2016 Episodic Residual codes; unclassified (6 sources) H/O: depression; Translations: [Personal history of other complications of , childbirth and the puerperium] Onset: 03-10-2016 Resolved: 08-25-2016 08-25-2016 Episodic Residual codes; unclassified (3 sources) Personal history of other specified conditions; Translations: [Personal history of other specified diseases] Onset: 03-10-2016 Resolved: 08-25-2016 08-25-2016 Episodic Unclassified (6 sources) removal of gallbladder 09-18-2021 Unclassified (6 sources) Infertile; Translations: [Infertility] 07-03-2018 Results Test Name Value Interpretation Reference Range Facility DHEA Sulfateon 09-19-2024 DHEA SULFATE 76.9 ug/dL Normal 57.3-279.2 [facility] Comment on above: Order Comment: N Performed By: #### L 503.6030, L500.4050, L3100.5400, L3300.1750, L100.0100, L503.6550, L503.0106, L506.1001, L3300.1500, L501.5200, L3100.5055, L500.4100, L501.9985, L501.9520 #### [facility] [address] [place], [place], [id number] PROLACTIN 4465on 09-19-2024 PROLACTIN 7.6 ng/mL Normal 4.8-33.4 [facility] Comment on above: Result Comment: Perf ormed at: [facility] [id number] [employer] Portal Architect: Charli Jacobs PhD, Phone: [phone] Performed By: #### L 503.6030, L500.4050, L3100.5400, L3300.1750, L100.0100, L503.6550, L503.0106, L506.1001, L3300.1500, L501.5200, L3100.5055, L500.4100, L501.9985, L501.9520 #### [facility] [address] [place], [address] CBC W/Diff, Automatedon 07-3 0-2024 Absolute Lymph 2.10 X10 3/uL Normal 0.83-4.51 [facility] Comment on above: Performed By: #### L 503.6030, L500.4050, L3100.5400, L3300.1750, L100.0100, L503.6550, L503.0106, L506.1001, L3300.1500, L501.5200, L3100.5055, L500.4100, L501.9985, L501.9520 #### [facility] [address] [place], [place], [id number] Absolute Neut 3.6 X10 3/uL Normal 2.0-7.7 [facility] Comment on above: Performed By: #### L 503.6030, L500.4050, L3100.5400, L3300.1750, L100.0100, L503.6550, L503.0106, L506.1001, L3300.1500, L501.5200, L3100.5055, L500.4100, L501.9985, L501.9520 #### [facility] [address] [place], [place], [id number] (731) Basophils/100 WBC (Bld) 0.8 % Normal 0-1 [facility] Comment on above: Performed By: #### L 503.6030, L500.4050, L3100.5400, L3300.1750, L100.0100, L503.6550, L503.0106, L506.1001, L3300.1500, L501.5200, L3100.5055, L500.4100, L501.9985, L501.9520 #### [facility] [address] [place], [place], [id number] (351) Eosinophils/100 WBC (Bld) 6.6 % High 0-5 [facility] Comment on above: Performed By: #### L 503.6030, L500.4050, L3100.5400, L3300.1750, L100.0100, L503.6550, L503.0106, L506.1001, L3300.1500, L501.5200, L3100.5055, L500.4100, L501.9985, L501.9520 #### [facility] [address] [place], [place], [id number] (220) Erythrocyte distribution width (RBC) [Ratio] 15.2 % High 11.6-14.6 [facility] Comment on above: Performed By: #### L 503.6030, L500.4050, L3100.5400, L3300.1750, L100.0100, L503.6550, L503.0106, L506.1001, L3300.1500, L501.5200, L3100.5055, L500.4100, L501.9985, L501.9520 #### [facility] [address] [place], [place], [id number] Hematocrit (Bld) [Volume fraction] 30.9 % Low 37-47 [facility] Comment on above: Performed By: #### L 503.6030, L500.4050, L3100.5400, L3300.1750, L100.0100, L503.6550, L503.0106, L506.1001, L3300.1500, L501.5200, L3100.5055, L500.4100, L501.9985, L501.9520 #### [facility] [address] [place], [address] Hemoglobin (Bld) [Mass/Vol] 9.2 g/dL Low 12.0-15.0 [facility] Comment on above: Performed By: #### L 503.6030, L500.4050, L3100.5400, L3300.1750, L100.0100, L503.6550, L503.0106, L506.1001, L3300.1500, L501.5200, L3100.5055, L500.4100, L501.9985, L501.9520 #### [facility] [address] [place], [address] IG% 0.200 Normal 0.0-0.9 [facility] Comment on above: Result Comment: IG% - Immature Granulocytes (promyelocytes, myelocytes and metamyelocytes) > 1% indicates that a LEFT SHIFT is Present. Performed By: #### L 503.6030, L500.4050, L3100.5400, L3300.1750, L100.0100, L503.6550, L503.0106, L506.1001, L3300.1500, L501.5200, L3100.5055, L500.4100, L501.9985, L501.9520 #### [facility] [address] [place], [address] Lymphocytes/100 WBC (Bld) 31.7 % Normal 19-41 [facility] Comment on above: Performed By: #### L 503.6030, L500.4050, L3100.5400, L3300.1750, L100.0100, L503.6550, L503.0106, L506.1001, L3300.1500, L501.5200, L3100.5055, L500.4100, L501.9985, L501.9520 #### [facility] [address] [place], [address] MCH (RBC) [Entitic mass] 21.9 pg Low 27.0-32.0 [facility] Comment on above: Performed By: #### L 503.6030, L500.4050, L3100.5400, L3300.1750, L100.0100, L503.6550, L503.0106, L506.1001, L3300.1500, L501.5200, L3100.5055, L500.4100, L501.9985, L501.9520 #### [facility] [address] [place], [address] MCHC (RBC) [Mass/Vol] 29.8 g/dL Low 32-36 [facility] Comment on above: Performed By: #### L 503.6030, L500.4050, L3100.5400, L3300.1750, L100.0100, L503.6550, L503.0106, L506.1001, L3300.1500, L501.5200, L3100.5055, L500.4100, L501.9985, L501.9520 #### [facility] [address] [place], [address] MCV (RBC) [Entitic vol] 73.6 fL Low 81-99 [facility] Comment on above: Performed By: #### L 503.6030, L500.4050, L3100.5400, L3300.1750, L100.0100, L503.6550, L503.0106, L506.1001, L3300.1500, L501.5200, L3100.5055, L500.4100, L501.9985, L501.9520 #### [facility] [address] [place], [address] Monocytes/100 WBC (Bld) 7.1 % Normal 0-10 [facility] Comment on above: Performed By: #### L 503.6030, L500.4050, L3100.5400, L3300.1750, L100.0100, L503.6550, L503.0106, L506.1001, L3300.1500, L501.5200, L3100.5055, L500.4100, L501.9985, L501.9520 #### [facility] [address] [place], [address] Neutrophils/100 WBC (Bld) 53.6 % Normal 47-70 [facility] Comment on above: Performed By: #### L 503.6030, L500.4050, L3100.5400, L3300.1750, L100.0100, L503.6550, L503.0106, L506.1001, L3300.1500, L501.5200, L3100.5055, L500.4100, L501.9985, L501.9520 #### [facility] [address] [place], [address] Nucleated RBC (Bld) [#/Vol] 0 10*3/uL Normal 0-5 [facility] Comment on above: Performed By: #### L 503.6030, L500.4050, L3100.5400, L3300.1750, L100.0100, L503.6550, L503.0106, L506.1001, L3300.1500, L501.5200, L3100.5055, L500.4100, L501.9985, L501.9520 #### [facility] [address] [place], [place], [id number] (226) Platelet mean volume (Bld) [Entitic vol] 9.5 fL Normal 6.2-12.0 [facility] Comment on above: Performed By: #### L 503.6030, L500.4050, L3100.5400, L3300.1750, L100.0100, L503.6550, L503.0106, L506.1001, L3300.1500, L501.5200, L3100.5055, L500.4100, L501.9985, L501.9520 #### [facility] [address] [facility] [place], [address] (027) Platelets (Bld) [#/Vol] 458 10*3/uL High 150-450 [facility] Comment on above: Performed By: #### L 503.6030, L500.4050, L3100.5400, L3300.1750, L100.0100, L503.6550, L503.0106, L506.1001, L3300.1500, L501.5200, L3100.5055, L500.4100, L501.9985, L501.9520 #### [facility] [address] [place], [place], [id number] (697) RBC (Bld) [#/Vol] 4.20 10*6/uL Normal 4.2-5.4 [facility] Comment on above: Performed By: #### L 503.6030, L500.4050, L3100.5400, L3300.1750, L100.0100, L503.6550, L503.0106, L506.1001, L3300.1500, L501.5200, L3100.5055, L500.4100, L501.9985, L501.9520 #### [facility] [address] [place], [place], [id number] RDW SD 40.1 fl Normal 35.1-43.9 [facility] Comment on above: Performed By: #### L 503.6030, L500.4050, L3100.5400, L3300.1750, L100.0100, L503.6550, L503.0106, L506.1001, L3300.1500, L501.5200, L3100.5055, L500.4100, L501.9985, L501.9520 #### [facility] [address] [facility] [address] [place], [place], [id number] WBC (Bld) [#/Vol] 6.6 10*3/uL Normal 4.4-11.0 [facility] Comment on above: Performed By: #### L 503.6030, L500.4050, L3100.5400, L3300.1750, L100.0100, L503.6550, L503.0106, L506.1001, L3300.1500, L501.5200, L3100.5055, L500.4100, L501.9985, L501.9520 #### [facility] [address] [facility] [place], [place], [id number] Comprehensive Metabolic Prof [facility] 09-18-2024 Albumin [Mass/Vol] 4.1 g/dL Normal 3.5-5.0 [facility] Comment on above: Performed By: #### L 503.6030, L500.4050, L3100.5400, L3300.1750, L100.0100, L503.6550, L503.0106, L506.1001, L3300.1500, L501.5200, L3100.5055, L500.4100, L501.9985, L501.9520 #### [facility] [address] [place], [place], [id number] Albumin/Globulin [Mass ratio] 1.3 {ratio} Normal 0.9-2.4 [facility] Comment on above: Performed By: #### L 503.6030, L500.4050, L3100.5400, L3300.1750, L100.0100, L503.6550, L503.0106, L506.1001, L3300.1500, L501.5200, L3100.5055, L500.4100, L501.9985, L501.9520 #### [facility] [address] [place], [place], [id number] ALK PHOS 68 U/L Normal 35-104 [facility] Comment on above: Performed By: #### L 503.6030, L500.4050, L3100.5400, L3300.1750, L100.0100, L503.6550, L503.0106, L506.1001, L3300.1500, L501.5200, L3100.5055, L500.4100, L501.9985, L501.9520 #### [facility] [address] [place], [place], [id number] ALT [Catalytic activity/Vol] 39 U/L High <=34 [facility] Comment on above: Performed By: #### L 503.6030, L500.4050, L3100.5400, L3300.1750, L100.0100, L503.6550, L503.0106, L506.1001, L3300.1500, L501.5200, L3100.5055, L500.4100, L501.9985, L501.9520 #### [facility] [address] [place], [place], [id number] AST [Catalytic activity/Vol] 41 U/L High <=31 [facility] Comment on above: Performed By: #### L 503.6030, L500.4050, L3100.5400, L3300.1750, L100.0100, L503.6550, L503.0106, L506.1001, L3300.1500, L501.5200, L3100.5055, L500.4100, L501.9985, L501.9520 #### [facility] [address] [place], [address] Bilirubin [Mass/Vol] 0.26 mg/dL Normal 0.00-1.30 [facility] Comment on above: Performed By: #### L 503.6030, L500.4050, L3100.5400, L3300.1750, L100.0100, L503.6550, L503.0106, L506.1001, L3300.1500, L501.5200, L3100.5055, L500.4100, L501.9985, L501.9520 #### [facility] [address] [place], [place], [id number] (403) BUN/CRE 18.9 RATIO Normal 10-20 [facility] Comment on above: Performed By: #### L 503.6030, L500.4050, L3100.5400, L3300.1750, L100.0100, L503.6550, L503.0106, L506.1001, L3300.1500, L501.5200, L3100.5055, L500.4100, L501.9985, L501.9520 #### [facility] [address] [place], [place], [id number] (734) Calcium [Mass/Vol] 9.1 mg/dL Normal 7.6-11.0 [facility] Comment on above: Performed By: #### L 503.6030, L500.4050, L3100.5400, L3300.1750, L100.0100, L503.6550, L503.0106, L506.1001, L3300.1500, L501.5200, L3100.5055, L500.4100, L501.9985, L501.9520 #### [facility] [address] [place], [place], [id number] (047) Chloride [Moles/Vol] 104 mmol/L Normal 98-108 [facility] Comment on above: Performed By: #### L 503.6030, L500.4050, L3100.5400, L3300.1750, L100.0100, L503.6550, L503.0106, L506.1001, L3300.1500, L501.5200, L3100.5055, L500.4100, L501.9985, L501.9520 #### [facility] [address] [place], [place], [id number] CO2 [Moles/Vol] 20.9 mmol/L Low 21.0-32.0 [facility] Comment on above: Performed By: #### L 503.6030, L500.4050, L3100.5400, L3300.1750, L100.0100, L503.6550, L503.0106, L506.1001, L3300.1500, L501.5200, L3100.5055, L500.4100, L501.9985, L501.9520 #### [facility] [address] [place], [address] Creatinine [Mass/Vol] 0.76 mg/dL Normal 0.70-1.20 [facility] Comment on above: Performed By: #### L 503.6030, L500.4050, L3100.5400, L3300.1750, L100.0100, L503.6550, L503.0106, L506.1001, L3300.1500, L501.5200, L3100.5055, L500.4100, L501.9985, L501.9520 #### [facility] [address] [place], [place], [id number] GAP 13 Normal 5-15 [facility] Comment on above: Performed By: #### L 503.6030, L500.4050, L3100.5400, L3300.1750, L100.0100, L503.6550, L503.0106, L506.1001, L3300.1500, L501.5200, L3100.5055, L500.4100, L501.9985, L501.9520 #### [facility] [address] [place], [place], [id number] GFR/1.73 sq M.predicted among non-blacks MDRD (S/P/Bld) [Vol rate/Area] 105 mL/min/{1.73_m2} Normal >60 [facility] Comment on above: Result Comment: mL/m in/1.73m2 CKD-EPI Creatinine Equation (2020) Performed By: #### L 503.6030, L500.4050, L3100.5400, L3300.1750, L100.0100, L503.6550, L503.0106, L506.1001, L3300.1500, L501.5200, L3100.5055, L500.4100, L501.9985, L501.9520 #### [facility] [address] [place], [address] Globulin (S) [Mass/Vol] 3.2 g/dL Normal 2.2-4.2 [facility] Comment on above: Performed By: #### L 503.6030, L500.4050, L3100.5400, L3300.1750, L100.0100, L503.6550, L503.0106, L506.1001, L3300.1500, L501.5200, L3100.5055, L500.4100, L501.9985, L501.9520 #### [facility] [address] [facility] [place], [address] Glucose [Mass/Vol] 86 mg/dL Normal 70-99 [facility] Comment on above: Performed By: #### L 503.6030, L500.4050, L3100.5400, L3300.1750, L100.0100, L503.6550, L503.0106, L506.1001, L3300.1500, L501.5200, L3100.5055, L500.4100, L501.9985, L501.9520 #### [facility] [address] [place], [address] Potassium [Moles/Vol] 3.9 mmol/L Normal 3.3-5.1 [facility] Comment on above: Performed By: #### L 503.6030, L500.4050, L3100.5400, L3300.1750, L100.0100, L503.6550, L503.0106, L506.1001, L3300.1500, L501.5200, L3100.5055, L500.4100, L501.9985, L501.9520 #### [facility] [address] [place], [address] Sodium [Moles/Vol] 138 mmol/L Normal 133-145 [facility] Comment on above: Performed By: #### L 503.6030, L500.4050, L3100.5400, L3300.1750, L100.0100, L503.6550, L503.0106, L506.1001, L3300.1500, L501.5200, L3100.5055, L500.4100, L501.9985, L501.9520 #### [facility] [address] [place], [place], [id number] (165) T PROT 7.3 g/dL Normal 5.9-8.4 [facility] Comment on above: Performed By: #### L 503.6030, L500.4050, L3100.5400, L3300.1750, L100.0100, L503.6550, L503.0106, L506.1001, L3300.1500, L501.5200, L3100.5055, L500.4100, L501.9985, L501.9520 #### [facility] [address] [place], [address] Urea nitrogen [Mass/Vol] 14 mg/dL Normal 4-19 [facility] Comment on above: Performed By: #### L 503.6030, L500.4050, L3100.5400, L3300.1750, L100.0100, L503.6550, L503.0106, L506.1001, L3300.1500, L501.5200, L3100.5055, L500.4100, L501.9985, L501.9520 #### [facility] [address] [place], [address] Estradiolon 09-18-2024 ESTRADIOL 47.0 pg/mL Normal [facility] Comment on above: Result Comment: FEMA LES ADULT FEMALE: Premenopausal: 15-350 pg/mL(E2 levels vary widely through the menstrual cycle) Postmenopausal: <10 pg/mL KEYON STAGES MEAN AGE REFERENCE RANGES Stage I(>14 days and prepubertal) 7.1 years Undetectable-20 pg/mLL Stage II 10.5 years Undetectable-24 pg/mL Stage III 11.6 years Undetectable-60 pg/mL Stage IV 12.3 years 15-85 pg/mL Stage V 14.5 years 15-350 pg/mL Puberty onset (transition from Keyon stage I to Keyon stage II) occurs for girls at a median age of 10.5 (/- 2) years. There is evidence that it may occur up to 1 year earlier in obese girls and in girls. Progression through Keyon stages is variable. Keyon stage V (adult) should be reached by age 18. Performed By: #### L 503.6030, L500.4050, L3100.5400, L3300.1750, L100.0100, L503.6550, L503.0106, L506.1001, L3300.1500, L501.5200, L3100.5055, L500.4100, L501.9985, L501.9520 #### [facility] [address] [place], [address] FSH and LHon 09-18-2024 FSH 5.5 mIU/mL Normal [facility] Comment on above: Result Comment: FEMA LE: Follicular: 1.4 - 18.1 mIU/mL Midcycle: 3.4 - 33.4 mIU/mL Luteal: 1.5 - 9.1 mIU/mL Post Menopause: 23.0 - 116.3 mIU/mL MALE: 1.4 - 18.1 mIU/mL Performed By: #### L 503.6030, L500.4050, L3100.5400, L3300.1750, L100.0100, L503.6550, L503.0106, L506.1001, L3300.1500, L501.5200, L3100.5055, L500.4100, L501.9985, L501.9520 #### [facility] [address] [facility] [place], [place], [id number] LH 16.6 mIU/mL Normal [facility] Comment on above: Result Comment: FEMA LE: Follicular: 1.9-12.5 mIU/mL Midcycle: 8.7-76.3 mIU/mL Luteal: 0.5-16.9 mIU/mL Post Menopause: 15.9-54.0 mIU/mL MALE: 20-70 Years: 1.5-9.3 mIU/mL >70 Years: 3.1-34.6 mIU/mL Performed By: #### L 503.6030, L500.4050, L3100.5400, L3300.1750, L100.0100, L503.6550, L503.0106, L506.1001, L3300.1500, L501.5200, L3100.5055, L500.4100, L501.9985, L501.9520 #### [facility] [address] [place], [address] Ferritinon 09-18-2024 Ferritin [Mass/Vol] 8 ng/mL Low 22-378 [facility] Comment on above: Performed By: #### L 503.6030, L500.4050, L3100.5400, L3300.1750, L100.0100, L503.6550, L503.0106, L506.1001, L3300.1500, L501.5200, L3100.5055, L500.4100, L501.9985, L501.9520 #### [facility] [address] [place], [place], [id number] Hemoglobin A1con 09-18-2024 HbA1c (Bld) [Mass fraction] 5.5 % Normal <=5.6 [facility] Comment on above: Result Comment: Norm al < 5.7 % Prediabetic 5.7 - 6.4 % Diabetic >or= 6.5 % Please note range changes. Performed By: #### L 503.6030, L500.4050, L3100.5400, L3300.1750, L100.0100, L503.6550, L503.0106, L506.1001, L3300.1500, L501.5200, L3100.5055, L500.4100, L501.9985, L501.9520 #### [facility] [address] [facility] [address] [place], [place], [id number] Iron+Iron Binding Capacityon 09-18-2024 Iron [Mass/Vol] 20 ug/dL Low 50-170 [facility] Comment on above: Performed By: #### L 503.6030, L500.4050, L3100.5400, L3300.1750, L100.0100, L503.6550, L503.0106, L506.1001, L3300.1500, L501.5200, L3100.5055, L500.4100, L501.9985, L501.9520 #### [facility] [address] [place], [place], [id number] IRON SATURATION 5.0 Low 13-59 [facility] Comment on above: Performed By: #### L 503.6030, L500.4050, L3100.5400, L3300.1750, L100.0100, L503.6550, L503.0106, L506.1001, L3300.1500, L501.5200, L3100.5055, L500.4100, L501.9985, L501.9520 #### [facility] [address] [place], [place], [id number] TIBC 427 ug/dL Normal 250-450 [facility] Comment on above: Performed By: #### L 503.6030, L500.4050, L3100.5400, L3300.1750, L100.0100, L503.6550, L503.0106, L506.1001, L3300.1500, L501.5200, L3100.5055, L500.4100, L501.9985, L501.9520 #### [facility] [address] [place], [place], [id number] (751) UIBC 407 ug/dL Normal 228-428 [facility] Comment on above: Performed By: #### L 503.6030, L500.4050, L3100.5400, L3300.1750, L100.0100, L503.6550, L503.0106, L506.1001, L3300.1500, L501.5200, L3100.5055, L500.4100, L501.9985, L501.9520 #### [facility] [address] [place], [place], [id number] Lipid Profileon 09-18-2024 CHOL:HDL 2.32 Normal [facility] Comment on above: Performed By: #### L 503.6030, L500.4050, L3100.5400, L3300.1750, L100.0100, L503.6550, L503.0106, L506.1001, L3300.1500, L501.5200, L3100.5055, L500.4100, L501.9985, L501.9520 #### [facility] [address] [place], [place], [id number] Cholesterol [Mass/Vol] 129 mg/dL Normal <=200 [facility] Comment on above: Result Comment: Chol esterol level, Desirable <200 mg/dL Borderline high cholesterol 200-239 mg/dL High cholesterol >=240 mg/dL Recommendations of the NCEP Adult Treatment Panel for the following risk-cutoff thresholds for the [place] population. Performed By: #### L 503.6030, L500.4050, L3100.5400, L3300.1750, L100.0100, L503.6550, L503.0106, L506.1001, L3300.1500, L501.5200, L3100.5055, L500.4100, L501.9985, L501.9520 #### [facility] [address] [facility] [place], [address] (471) Cholesterol in HDL [Mass/Vol] 56 mg/dL Normal [facility] Comment on above: Result Comment: Gianna onal Cholesterol Education Program (NCEP) guidelines: <40 mg/dL: Low HDL-cholesterol (major risk factor for CHD) >= 60 mg/dL: High HDL-cholesterol (negative risk factor for CHD) HDL-cholesterol is affected by a number of factors, e.g. smoking, exercise, hormones, sex and age. Performed By: #### L 503.6030, L500.4050, L3100.5400, L3300.1750, L100.0100, L503.6550, L503.0106, L506.1001, L3300.1500, L501.5200, L3100.5055, L500.4100, L501.9985, L501.9520 #### [facility] [address] [place], [place], [id number] (113) Cholesterol in LDL [Mass/Vol] 49 mg/dL Normal [facility] Comment on above: Result Comment: Bord glibwe=857-670 mg/dL Higher Snsi=650 mg/dL or greater Friedwald Equation for LDL-C Performed By: #### L 503.6030, L500.4050, L3100.5400, L3300.1750, L100.0100, L503.6550, L503.0106, L506.1001, L3300.1500, L501.5200, L3100.5055, L500.4100, L501.9985, L501.9520 #### [facility] [address] [facility] [place], [place], [id number] Cholesterol in VLDL [Mass/Vol] 24 mg/dL Normal 5-40 [facility] Comment on above: Performed By: #### L 503.6030, L500.4050, L3100.5400, L3300.1750, L100.0100, L503.6550, L503.0106, L506.1001, L3300.1500, L501.5200, L3100.5055, L500.4100, L501.9985, L501.9520 #### [facility] [address] [facility] [place], [place], [id number] Triglyceride [Mass/Vol] 122 mg/dL Normal [facility] Comment on above: Result Comment: The drugs N-Acetylcysteine and Metamizole may falsely depress this assay. Normal range: <150 mg/dL Borderline High: 150-199 mg/dL High: 200-499 mg/dL Very High: >500 mg/dL Performed By: #### L 503.6030, L500.4050, L3100.5400, L3300.1750, L100.0100, L503.6550, L503.0106, L506.1001, L3300.1500, L501.5200, L3100.5055, L500.4100, L501.9985, L501.9520 #### [facility] [address] [place], [place], [id number] [phone] Magnesiumon 09-18-2024 Magnesium [Mass/Vol] 1.8 mg/dL Normal 1.5-2.2 [facility] Comment on above: Performed By: #### L 503.6030, L500.4050, L3100.5400, L3300.1750, L100.0100, L503.6550, L503.0106, L506.1001, L3300.1500, L501.5200, L3100.5055, L500.4100, L501.9985, L501.9520 #### [facility] [address] [place], [address] Thyroid Stim Hormone (TSH)on 09-18-2024 TSH 1.490 uIU/mL Normal 0.300-4.20 0 [facility] Comment on above: Performed By: #### L 503.6030, L500.4050, L3100.5400, L3300.1750, L100.0100, L503.6550, L503.0106, L506.1001, L3300.1500, L501.5200, L3100.5055, L500.4100, L501.9985, L501.9520 #### [facility] [address] [place], [address] Vitamin B12on 09-18-2024 Cobalamin (Vitamin B12) [Mass/Vol] 593 pg/mL Normal 180-914 [facility] Comment on above: Performed By: #### L 503.6030, L500.4050, L3100.5400, L3300.1750, L100.0100, L503.6550, L503.0106, L506.1001, L3300.1500, L501.5200, L3100.5055, L500.4100, L501.9985, L501.9520 #### [facility] [address] [place], [address] Vitamin D,25 Hydroxyon 09-18 Vitamin D 25-OH 29.3 ng/mL Low 30-100 [facility] Comment on above: Result Comment: Yanely min D Status Deficiency: <20 ng/mL (50nmol/L) Insufficiency: 20-30 ng/mL (50-75 nmol/L) Sufficiency: 30-100 ng/mL (75-250 nmol/L) Toxicity: >100 ng/mL (>250 nmol/L) Performed By: #### L 503.6030, L500.4050, L3100.5400, L3300.1750, L100.0100, L503.6550, L503.0106, L506.1001, L3300.1500, L501.5200, L3100.5055, L500.4100, L501.9985, L501.9520 #### [facility] [address] [place], [address] CNOVon 04-23-2024 CNOV Office Visit (UCWSTR ) -------- ROWENA JAQUEZ ([id number]) 1990 F Date Time Provider Department 04/23/24 10:15 AM TERENCE WALLACE [facility] During your visit today, we recorded the following information about you: Temperature Pulse Respiration Blood pressure 99.2 degrees 102/minute 18/minute 126/72 Weight 99.9 kg Terence Wallace, PA 04/23/2024 10:35 AM Signed [facility] Subjective Rowenajayro Jaquez is a 33 year old female. HPI 33-year-old female presents for cough, congestion, headache, ear pain, fever, sore throat x 3 days. Patient states she started getting sick a couple days ago with cough congestion. She now has right ear pain. She felt feverish yesterday, did not actually take her temperature. She has had sore throat. No vomiting or diarrhea. Still eating and drinking. No other complaint PAST MEDICAL HISTORY Diagnosis Date Allergies Carpal tunnel syndrome of right wrist 08/01/2018 [...] Bilateral 2017 ALLERGIES Naproxen and Penicillins MEDICATIONS methylphenidate (RITALIN) 10 mg tablet Take 1 tablet by mouth two times a day for 14 days. fluticasone (FLONASE ALLERGY RELIEF) 50 mcg/actuation nasal spray Use 1 [place] in each nostril once daily. mometasone-formoterol (DULERA) 200-5 mcg/actuation inhaler Inhale 2 Puffs as instructed two times a day. VENTOLIN HFA 90 mcg/actuation inhaler INHALE 2 PUFFS EVERY 4 TO 6 HOURS NEEDED FAMILY HISTORY Problem Relation Age of Onset Seizures Father Arthritis Maternal Grandmother Thyroid Maternal Grandmother Diabetes Maternal Grandfather Heart Maternal Grandfather Asthma No Family History Social History Tobacco Use Smoking status: Former Current packs/day: 0.00 Average packs/day: 1 pack/day for 4.0 years (4.0 ttl pk-yrs) Types: Cigarettes Start date: 05/2010 Quit date: 05/2014 Years since quittin.9 Smokeless tobacco: Never Tobacco comments: vaps while at work Vaping Use Vaping status: Former Substances: Nicotine, Flavoring Devices: CSID tank Substance Use Topics Alcohol use: Not Currently Comment: occasionally Drug use: Not Currently Types: Crystal Meth, Heroin Review of Systems Constitutional: Positive for fever. Negative for chills. HENT: Positive for congestion, ear pain and sore throat. Negative for facial swelling. Respiratory: Positive for cough. Negative for shortness of breath. Cardiovascular: Negative for chest pain. Gastrointestinal: Negative for diarrhea and vomiting. Objective BP 126/72 Pulse 102 Temp 37.3 ?C (99.2 ?F) Resp 18 Wt 99.9 kg (220 lb 3.8 oz) LMP 02/28/2023 (Approximate) SpO2 97% BMI 39.01 kg/m? Physical Exam Vitals and nursing note reviewed. Constitutional: General: She is not in acute distress. Appearance: Normal appearance. She is not toxic-appearing. HENT: Right Ear: Tympanic membrane and ear canal normal. Left Ear: Tympanic membrane and ear canal normal. Nose: Congestion present. Mouth/Throat: Mouth: Mucous membranes are moist. Pharynx: Posterior oropharyngeal erythema present. Eyes: Conjunctiva/sclera: Conjunctivae normal. Cardiovascular: Rate and Rhythm: Normal rate and regular rhythm. Pulmonary: Effort: Pulmonary effort is normal. Breath sounds: Normal breath sounds. No wheezing, rhonchi or rales. Skin: General: Skin is warm and dry. Neurological: Mental Status: She is alert. Assessment and Plan History and Record Review Systemic symptoms present included: Fever/chills per patient Differential Diagnoses - uri is more likely for the following reason(s): suggested by HANDP - strep is less likely for the following reason(s): laboratory studies not suggestive Additional Tests or Interventions The following testing was considered but ultimately not selected after discussion with patient/family: viral swab, declines Disposition The patient was discharged. OTC Medications were advised: Flonase, cough and cold meds Procedures ASSESSMENT/PLAN: 1. Sore throat - ICD9: 462, ICD10: J02.9 (primary diagnosis) - suspect viral - Group A strep molecular testing negative - Discussed supportive care treatment with fluids, rest and analgesia. - The patient may also use warm salt water gargles, throat lozenges and/or OTC throat spray as needed. - STREP A MOLECULAR (POC) 2. URI, acute - ICD9: 465.9, ICD10: J06.9 - (more content not included)... Normal [facility] STREP A MOLECULAR (POC)on Procedural Control Valid [facility] Strep A (POCT) Negative Negative [facility] CNOVon 08-10-2023 CNOV Office Visit (PULMWS ) -------- ROWENA JAQUEZ ([id number]) 1990 F Date Time Provider Department 08/10/23 2:15 PM JAIMIE CHEN PULMWS During your visit today, we recorded the following information about you: Weight 104.3 kg Jaimie Chen MD 08/10/2023 4:45 PM [facility] . Respiratory [place] Note Patient name: Rowena Jaquez PCP: Gonzales Goddard MD CC: Follow-up asthma HPI: Rowena Jaquez 32 year old female former minimal smoker, former vaping, with PMH significant for PCOS, mild asthma, seasonal and environmental allergies presenting for routine follow-up visit. Current inhaled therapy consists of Dulera, with as needed albuterol. She was on Singulair and OTC antihistamine but stopped both medications due to ineffectiveness. Her strongest allergy is due to dog dander and she has persistent allergen exposure due to her dog at home. She is having significant allergy symptoms with itchy eyes, matting in the morning, tearing and swelling. Nasal congestion but no headaches. Despite her allergy symptoms, she has not had a flare of her asthma symptoms. She is compliant with use of her Dulera. Occasional need for her albuterol. No significant nocturnal awakenings however she is pending she was pending in lab evaluation for sleep apnea. DATA: Oral Exhaled Nitric Oxide measurement (Previous Encounters) Test Date Oral Exhaled Nitric Oxide (ppb) 02/06/2023 33.0 11/09/2022 36.0 (A) 09/23/2022 71.0 (A) Labs: omponent Ref Range AND Units 10 mo ago [place] IgE <0.35 kU/l <0.35 [place] Class Class 0 Class 0 Carlos Grass IgE <0.35 kU/l 8.34 High [place] Class Class 0 Class 3 Abnormal Michela Grass IgE <0.35 kU/l 15.20 High Michela Grass Class Class 0 Class 3 Abnormal Short Ragweed IgE <0.35 kU/l 2.91 High Short Ragweed Class Class 0 Class 2 Abnormal Milan[place] Quarters IgE <0.35 kU/l <0.35 [place] Class Class 0 Class 0 Cat Dander IgE <0.35 kU/l 13.90 High Cat Dander Class Class 0 Class 3 Abnormal Dog Dander IgE <0.35 kU/l 52.40 High Dog Dander Class Class 0 Class 5 Abnormal Cladosporium herbarum IgE <0.35 kU/l <0.35 Cladosporium herbarum Class Class 0 Class 0 Alternaria tenuis IgE <0.35 kU/l <0.35 Alternaria tenuis Class Class 0 Class 0 Dermatophagoides Farinae IgE <0.35 kU/l 1.86 High Dermatophagoides Farinae Class Class 0 Class 2 Abnormal PAST MEDICAL HISTORY Diagnosis Date Carpal tunnel syndrome of right wrist 08/01/2018 Mild per EMG study fracture small finger right hand Infertility, female attempting since age 16 Mild persistent asthma without complication 09/23/2022 PCO (polycystic ovaries) 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 FLUoxetine (PROZAC) 10 mg capsule Take 1 capsule by mouth once daily. VENTOLIN HFA 90 mcg/actuation inhaler INHALE 2 PUFFS EVERY 4 TO 6 HOURS NEEDED mometasone-formoterol (DULERA) 200-5 mcg/actuation inhaler Inhale 2 Puffs as instructed two times a day. montelukast (SINGULAIR) 10 mg tablet Take 1 tablet by mouth daily at bedtime. Social History Tobacco Use Smoking status: Former Packs/day: 1.00 Years: 4.00 Additional pack years: 0.00 Total pack years: 4.00 Types: Cigarettes Quit date: 05/2014 Years since quittin.2 Smokeless tobacco: Never Tobacco comments: vaps while at work Vaping Use Vaping Use: Former Substances: Nicotine, Flavoring Devices: Refillable tank Substance Use Topics Alcohol use: Not Currently Comment: occasionally Drug use: Not Currently Types: Crystal Meth, Heroin FAMILY HISTORY Problem Relation Age of Onset [...] fevers, chills, nightsweats, unintended weight loss HEENT: Positive nasal congestion/sinus symptoms, problematic allergy problems. EYES: See HPI CARDIOVASCULAR: No chest pain, dyspnea, palpitations, edema. PULM: See HPI INTEGUMENTARY: No new skin changes, rashes PHYSICAL EXAMINATION: LMP 02/28/2023 BP 108/70, pulse 87, RR 14, SpO2 98% on room air, weight 203 pounds General Appearance: Obese female, NAD. Skin: Skin color, texture, turgor normal, no suspici (more content not included)... Normal [facility] CNOVon 05-15-2023 CNOV Office Visit (INTMWS ) -------- JUAN DAVIDROWENA SMITH Desi ([id number]) 1990 F Date Time Provider Department 05/15/23 9:00 AM PAIGE AYALA During your visit today, we recorded the following information about you: Pulse Respiration Blood pressure Weight 83/minute 16/minute 122/78 100.7 kg Paige Ayala APRN.SPORTS PHYSIOTHERAPIST 05/15/2023 9:30 AM Signed CC: Patient presents with: Recheck: 2 week follow up HPI Rowena M Gisele is a 32 year old female who presents today for weight. Typical diet: coffee with protein shake, no sugar or cream. Lunch : 1/2 cup of cottage cheese with mustard, raw vegetables, hard boiled egg, strawberry, salami. Dinner: 1/2 rotisserie chicken, salsa or marinara, cheese, sour cream, tortillas and steamed veggies. Has been doing this for a week and continuing to gain weight. Exercise: Starting a new job so has not had a chance to regularly start working out again. Blood work previously ordered has not been drawn yet. REVIEW OF SYSTEMS See HPI PAST MEDICAL [...] Take 1 capsule by mouth once daily. methylphenidate (RITALIN) 10 mg tablet Take 1 tablet by mouth two times a day for 14 days. 1 tablet twice daily VENTOLIN HFA 90 mcg/actuation inhaler INHALE 2 PUFFS EVERY 4 TO 6 HOURS NEEDED mometasone-formoterol (DULERA) 200-5 mcg/actuation inhaler Inhale 2 Puffs as instructed two times a day. montelukast (SINGULAIR) 10 [...] Types: Cigarettes Quit date: 05/2014 Years since quittin.9 Smokeless tobacco: Never Tobacco comments: vaps while at work Vaping Use Vaping Use: Former Substances: Nicotine, Flavoring Devices: CSID tank Substance Use Topics Alcohol use: Not Currently Comment: occasionally Drug use: Not Currently Types: Crystal Meth, Heroin PHYSICAL EXAM BP 122/78 Pulse 83 Resp 16 Wt 100.7 kg (222 lb) LMP 02/28/2023 (Approximate) SpO2 96% BMI 39.33 kg/m? General Appearance: well appearing, in no acute distress, alert Pysch: mood and affect broad and appropriate Eyes: conjunctiva pink and moist, no icterus, sclera white, non-injected Health maintenance reviewed with patient: Depression Assessment Never done Hepatitis B Vaccine(1 of 3 - 19+ 3-dose series) due on 12/29/2023 Pap Testing due on 12/29/2023 HPV Testing due on 12/29/2023 Covid-19 Vaccine(2022- season) due on 12/29/2023 Annual PCP Team Chronic Disease Visit due on 05/02/2024 DTaP,Tdap,Td Vaccine(12 - Td or Tdap) due on 08/30/2027 Spirometry Completed Influenza Vaccine Completed Hepatitis C Screening Completed HIV Screening Completed HPV Vaccine Aged Out DATA REVIEWED: No new labs ASSESSMENT/PLAN: 1. Class 2 obesity with body mass index (BMI) of 39.0 to 39.9 in adult, unspecified obesity type, unspecified whether serious comorbidity present - ICD9: 278.00, V85.39, ICD10: E66.9, Z68.39 (primary diagnosis) Weight increasing - Behavioral intervention - Increase activity level with goal of 30-60 min of exercise 5 days a week - increase fruit to 2 servings a day, veggies 4-5, keep with protein as eating. - get blood work drawn as previously ordered - follow up in 6-8 weeks 2. Weight loss counseling, encounter for - ICD9: V65.3, ICD10: Z71.3 As above Prescription instructions reviewed with patient as applicable. Potential red flag symptoms discussed with the patient. Reviewed appropriate action plan to take if red flag symptoms occur. Patient agreeable to treatment plan. Paige Ayala, SCOTT.SPORTS PHYSIOTHERAPIST Allergies As of Date: 05/15/2023 Noted Allergy Reaction NAPROXEN 03/24/2015 2 - Rash PENICILLINS 08/29/2014 4 - Hives Date Reviewed: 04/04/2023 Reviewed by: Thelma Marie PA-C - Fully Assessed Reason for Visit: Recheck [92] Cmt: 2 week follow up Primary Visit Diagnosis:Class 2 obesity with body mass index (BMI) of 39 (more content not included)... Normal [facility] Comprehensive metabolic 2000 panelon 05-15-2023 Albumin [Mass/Vol] 4.5 g/dL Normal 3.9-4.9 [facility] Comment on above: Order Comment: Inge matute Type: BLOOD SPECIMEN Ordering Facility: [facility] Address: [address] [place] [address] Performed By: #### 3 024-7, 3016-3, 39702-2 #### [facility] CLIA [id number] [address] [place] [address] [place] ALP [Catalytic activity/Vol] 62 U/L Normal 34-123 [facility] Comment on above: Order Comment: Inge matute Type: BLOOD SPECIMEN Ordering Facility: [facility] Address: [address] [place] [address] Performed By: #### 3 024-7, 301-3, 54400-4 #### [facility] CLIA [id number] [address] [place] [address] [place] ALT [Catalytic activity/Vol] 23 U/L Normal 7-38 [facility] Comment on above: Order Comment: Speci men Type: BLOOD SPECIMEN Ordering Facility: [facility] Address: [address] [place] [address] Performed By: #### 3 024-7, 3015-3, #### [facility] CLIA [id number] [address] [place] [address] [place] Anion gap [Moles/Vol] 9 mmol/L Normal 9-18 [facility] Comment on above: Order Comment: Speci men Type: BLOOD SPECIMEN Ordering Facility: [facility] Address: [address] [place] [address] Performed By: #### 3 024-7, 3015-3, #### [facility] CLIA [id number] [address] [place] [address] [place] AST [Catalytic activity/Vol] 23 U/L Normal 13-35 [facility] Comment on above: Order Comment: Speci men Type: BLOOD SPECIMEN Ordering Facility: [facility] Address: [address] [place] [address] Performed By: #### 3 024-7, 3015-3, #### [facility] CLIA [id number] [address] [place] [address] [place] Bilirubin [Mass/Vol] 0.2 mg/dL Normal 0.2-1.3 [facility] Comment on above: Order Comment: Speci men Type: BLOOD SPECIMEN Ordering Facility: [facility] Address: [address] [place] [address] Performed By: #### 3 024-7, 3015-3, 34326-7 #### [facility] CLIA [id number] [address] [place] [address] [place] Calcium [Mass/Vol] 9.1 mg/dL Normal 8.5-10.2 [facility] Comment on above: Order Comment: Speci men Type: BLOOD SPECIMEN Ordering Facility: [facility] Address: [address] [place] [address] Performed By: #### 3 024-7, 3016-3, 93002-2 #### [facility] CLIA [id number] [address] [place] [address] [place] Chloride [Moles/Vol] 105 mmol/L Normal 97-105 [facility] Comment on above: Order Comment: Speci men Type: BLOOD SPECIMEN Ordering Facility: [facility] Address: [address] [place] [address] Performed By: #### 3 024-7, 3015-3, 17761-7 #### [facility] CLIA [id number] [address] [place] [address] [place] CO2 [Moles/Vol] 26 mmol/L Normal 22-30 [facility] Comment on above: Order Comment: Speci men Type: BLOOD SPECIMEN Ordering Facility: [facility] Address: [address] [place] [address] Performed By: #### 3 024-7, 3016-3, 99282-5 #### [facility] CLIA [id number] [address] [place] [address] [place] Creatinine [Mass/Vol] 0.75 mg/dL Normal 0.58-0.96 [facility] Comment on above: Order Comment: Speci men Type: BLOOD SPECIMEN Ordering Facility: [facility] Address: [address] [place] [address] Performed By: #### 3 024-7, 3016-3, 94200-4 #### [facility] CLIA [id number] [id number] [address] [place] Creatinine and Glomerular filtration rate.predicted panel (S/P/Bld) 107 mL/min/1.73m??? Normal >=60 [facility] Comment on above: Order Comment: Inge matute Type: BLOOD SPECIMEN Ordering Facility: [facility] Address: [address] [place] [address] Result Comment: Enid mated Glomerular Filtration Rate (eGFR) is calculated using the 2020 CKD-EPI creatinine equation. This equation utilizes serum creatinine, sex, and age as parameters. The creatinine assay has traceable calibration to isotope dilution-mass spectrometry. Refer to KDIGO guidelines for clinical interpretation. In patients with unstable renal function, e.g. those with acute kidney injury, the eGFR may not accurately reflect actual GFR. Performed By: #### 3 024-7, 3016-3, 83126-2 #### [facility] [facility] CLIA [id number] [address] [place] [address] [place] Glucose [Mass/Vol] 85 mg/dL Normal 74-99 [facility] Comment on above: Order Comment: Inge matute Type: BLOOD SPECIMEN Ordering Facility: [facility] Address: [address] [place] [address] Result Comment: The [place] Diabetes Association (ADA) provides guidance for cutoff values for fasting glucose and random glucose. The ADA defines fasting as no caloric intake for at least 8 hours. Fasting plasma glucose results between 100 to 125 mg/dL indicate increased risk for diabetes (prediabetes). Fasting plasma glucose results greater than or equal to 126 mg/dL meet the criteria for diagnosis of diabetes. In the absence of unequivocal hyperglycemia, results should be confirmed by repeat testing. In a patient with classic symptoms of hyperglycemia or hyperglycemic crisis, random plasma glucose results greater than or equal to 200 mg/dL meet the criteria for diagnosis of diabetes. Reference: Standards of Medical Care in Diabetes 2016, [place] Diabetes Association. Diabetes Care. 2016.39(Suppl 1). Performed By: #### 3 024-7, 3016-3, 33611-6 #### [facility] CLIA [id number] [address] [place] [address] [place] Potassium [Moles/Vol] 3.8 mmol/L Normal 3.7-5.1 [facility] Comment on above: Order Comment: Speci men Type: BLOOD SPECIMEN Ordering Facility: [facility] Address: [address] [place] [address] Performed By: #### 3 024-7, 3, #### [facility] CLIA [id number] [address] [place] [address] [place] Protein [Mass/Vol] 7.6 g/dL Normal 6.3-8.0 [facility] Comment on above: Order Comment: Speci men Type: BLOOD SPECIMEN Ordering Facility: [facility] Address: [address] [place] [address] Performed By: #### 3 024-7, 3, #### [facility] CLIA [id number] [address] [place] [address] [place] Sodium [Moles/Vol] 140 mmol/L Normal 136-144 [facility] Comment on above: Order Comment: Speci men Type: BLOOD SPECIMEN Ordering Facility: [facility] Address: [address] [place] [address] Performed By: #### 3 024-7, 3015-04, #### [facility] CLIA [id number] [address] [place] [address] [place] Urea nitrogen [Mass/Vol] 14 mg/dL Normal 7-21 [facility] Comment on above: Order Comment: Speci men Type: BLOOD SPECIMEN Ordering Facility: [facility] Address: [address] [place] [address] Performed By: #### 3 024-7, 3, #### [facility] CLIA [id number] [address] [place] [address] [place] HbA1c (Bld)on 05-15-2023 Average glucose Estimated from glycated hemoglobin (Bld) [Mass/Vol] 105 mg/dL Normal [facility] Comment on above: Order Comment: Inge matute Type: BLOOD SPECIMEN Ordering Facility: [facility] Address: [address] [place] [address] Result Comment: eAG: (Estimated average glucose) is a calculated value from HgbA1c and is claim representative of the average blood glucose level in the last 2-3 month period. Performed By: #### 5 5454-3 #### [facility] CLIA [id number] [address] [place] [address] [place] HbA1c (Bld) [Mass fraction] 5.3 % Normal 4.3-5.6 [facility] Comment on above: Order Comment: Inge matute Type: BLOOD SPECIMEN Ordering Facility: [facility] Address: [address] [place] [address] Result Comment: [place] Diabetes Association guidelines indicate that patients with HgbA1c in the range 5.7-6.4% are at increased risk for development of diabetes, and intervention by lifestyle modification may be beneficial. HgbA1c greater or equal to 6.5% is considered diagnostic of diabetes. Performed By: #### 5 5454-3 #### [facility] CLIA [id number] [address] [place] [address] [place] T4 Free SerPl-mCncon 024 Free T4 [Mass/Vol] 1.0 ng/dL Normal 0.9-1.7 [facility] Comment on above: Order Comment: Inge matute Type: BLOOD SPECIMEN Ordering Facility: [facility] Address: [address] [place] [address] Performed By: #### 3 024-7, 3016-3, 71324-5 #### [facility] CLIA [id number] [address] [place] [address] [place] TSH SerPl-aCncon 05-15-2023 TSH Qn 1.650 m[IU]/L Normal 0.270-4.20 0 [facility] Comment on above: Order Comment: Inge matute Type: BLOOD SPECIMEN Ordering Facility: [facility] Address: [address] [place] [address] Result Comment: If t he patient is , TSH reference range varies by gestational period: First Trimester (weeks 9-12): 0.180-2.990 mIU/L Second Trimester: 0.110-3.980 mIU/L Third Trimester: 0.480-4.710 mIU/L Eitan Rosa et al. A Practical Approach for the Verifications and Determination of Site- and Trimester-Specific Reference Intervals for Thyroid Function tests in . Thyroid, 2019:29:3:412-420. Lauro Cortez, et al. 2017 Guidelines of the [place] Thyroid Association for the Diagnosis and Management of Thyroid Disease during and the . Thyroid, 2017:27:3:315-389. Performed By: #### 3 024-7, 3016-3, 45332-6 #### [facility] CLIA [id number] [address] [place] [address] OF [facility] CNOVon 05-03-2023 CNOV Office Visit (INTMWS ) -------- ROWENA JAQUEZ ([id number]) 1990 F Date Time Provider Department 05/03/23 7:40 AM PAIGE AYALA INTMWS During your visit today, we recorded the following information about you: Pulse Respiration Blood pressure Weight 84/minute 16/minute 118/70 99.8 kg Paige Ayala APRN.SPORTS PHYSIOTHERAPIST 05/03/2023 8:45 AM Signed CC: Patient presents with: Recheck: Medication follow up HPI Rowena Jaquez is a 32 year old female who presents today for follow up on adhd meds but has concerns for weight. ADHD: Is on ritalin twice a day and able to concentrate well with this. Needs refill. Obesity: Has gained weight over the last year and having difficulty losing weight. Recent sleep study which was negative. Recently started working out 2 days a week at the gym and trying to eat healthy. REVIEW OF SYSTEMS General: no fevers, no chills, no night sweats, no recurrent infections, no change in appetite, no change in energy, and no significant changes in weight Respiratory: no cough, no wheezing, no shortness of breath, no hemoptysis Cardiovascular: no chest pain, no chest pressure, no palpitations, and no swelling Endocrine: no fatigue, no polyuria, no polyphagia, and no polydipsia Neurologic: No headache, weakness, numbness, tingling, neck [...] Bilateral 2017 ALLERGIES Naproxen and Penicillins MEDICATIONS methylphenidate (RITALIN) 10 mg tablet Take 1 tablet by mouth two times a day for 14 days. 1 tablet twice daily VENTOLIN HFA [...] Types: Cigarettes Quit date: 05/2014 Years since quittin.9 Smokeless tobacco: Never Tobacco comments: vaps while at work Vaping Use Vaping Use: Former Substances: Nicotine, Flavoring Devices: Refillable tank Substance Use Topics Alcohol use: Not Currently Comment: occasionally Drug use: Not Currently Types: Crystal Meth, Heroin PHYSICAL EXAM BP 118/70 Pulse 84 Resp 16 Wt 99.8 kg (220 lb) LMP 02/28/2023 (Approximate) SpO2 97% BMI 38.97 kg/m? General Appearance: well appearing, in no acute distress, alert Pysch: mood and affect broad and appropriate Skin: Skin color, texture, turgor normal for age; Eyes: conjunctiva pink and moist, no icterus, sclera white, non-injected Health maintenance reviewed with patient: Depression Assessment Never done Hepatitis B Vaccine(1 of 3 - 19+ 3-dose series) due on 12/29/2023 Pap Testing due on 12/29/2023 HPV Testing due on 12/29/2023 Covid-19 Vaccine( season) due on 12/29/2023 Annual PCP Team Chronic Disease Visit due on 05/02/2024 DTaP,Tdap,Td Vaccine(12 - Td or Tdap) due on 08/30/2027 Spirometry Completed Influenza Vaccine Completed Hepatitis C Screening Completed HIV Screening Completed HPV Vaccine Aged Out DATA REVIEWED: No new labs ASSESSMENT/PLAN: 1. Attention deficit disorder (ADD) in adult - ICD9: 314.00, ICD10: F98.8 (primary diagnosis) Controlled with current treatment - METHYLPHENIDATE 10 MG TABLET PDMP website checked and validated. All prescriptions have been APPROPRIATELY filled. No suspicious activity was identified. 05/03/2023 by Paige Ayala APRN.SPORTS PHYSIOTHERAPIST 2. Class 2 obesity with body mass index (BMI) of 38.0 to 38.9 in adult, unspecified obesity type, unspecified whether serious comorbidity present - ICD9: 278.00, V85.38, ICD10: E66.9, Z68.38 Weight increasing - Behavioral intervention - keep food diary and start working on meal planning. Focus on getting 3-5 servings of vegetables daily and 3-5 servings of low protein daily as well - increase activity a (more content not included)... Normal [facility] Absolute lymphocyte countOrd ered By: Salvatore Valerio on 03-22-2023 Lymphocytes Auto (Unsp spec) [#/Vol] 2.17 10*3/uL 0.83-4.51 [facility] Automated lymphocyte count a s percentage of total leukocytesOrdered By: Salvatore Valerio on 03-22-2023 Lymphocytes/100 WBC Auto (Unsp spec) 28.6 % 19-41 [facility] Basophil percentageOrdered B y: Salvatore Valerio on 03-22-2023 Basophil percentage 0 SEEN /hpf 0-5 [facility] Basophils/100 WBC (Bld) 0.5 % 0-1 [facility] Bilirubin [Mass/Vol] 0.40 mg/dL 0.20-1.00 [facility] Comment on above: For patients on eltr ombopag therapy, use of Dimension Richardson TBIL is not recommended. Chloride [Moles/Vol] 108 mmol/L 98-107 [facility] Eosinophils/100 WBC (Bld) 4.5 % 0-5 [facility] Glucose [Mass/Vol] 94 mg/dL 74-106 [facility] Hemoglobin (Bld) [Mass/Vol] 11.3 g/dL 12.0-15.0 [facility] Monocytes/100 WBC (Bld) 9.7 % 0-10 [facility] Neutrophils (Bld) [#/Vol] 4.3 10*3/uL 2.0-7.7 [facility] Neutrophils/100 WBC (Bld) 56.3 % 47-70 [facility] Potassium [Moles/Vol] 3.9 mmol/L 3.5-5.1 [facility] Protein [Mass/Vol] 7.6 g/dL 6.4-8.2 [facility] Sodium [Moles/Vol] 139 mmol/L 136-145 [facility] WBC (Bld) [#/Vol] 7.6 10*3/uL 4.4-11.0 [facility] Bilirubin Test strip Ql (U)O rdered By: Salvatore Valerio on 03-22-2023 Bilirubin Ql (U) Negative Negative [facility] Determination of erythrocyte mean corpuscular volume (MCV)Ordered By: Salvatore Valerio on 03-22-2023 MCV (RBC) [Entitic vol] 87.6 fL 81-99 [facility] Direct bilirubinOrdered By: Salvatore Valerio on 03-22-2023 Bilirubin.direct [Mass/Vol] 0.11 mg/dL 0.00-0.30 [facility] Erythrocyte distribution wid th ratioOrdered By: Salvatore Valerio on 03-22-2023 Erythrocyte distribution width (RBC) [Ratio] 14.3 % 11.6-14.6 [facility] Erythrocyte distribution wid th standard deviationOrdered By: Salvatore Valerio on 03-22-2023 Erythrocyte distribution width (RBC) [Entitic vol] 45.5 fL 35.1-43.9 [facility] Hematocrit Auto (Bld) [Volum e fraction]Ordered By: Salvatore Valerio on 03-22-2023 Hematocrit (Bld) [Volume fraction] 35.9 % 37-47 [facility] Immature granulocytes/100 WB C Auto (Bld)Ordered By: Salvatore Valerio on 03-22-2023 Immature granulocytes/100 WBC (Bld) 0.400 % 0.0-0.9 [facility] Comment on above: IG% - Immature Granu locytes (promyelocytes, myelocytes and metamyelocytes) > 1% indicates that a LEFT SHIFT is Present. Ketones Test strip Ql (U)Ord ered By: Salvatore Valerio on 03-22-2023 Ketones Ql (U) Negative Negative [facility] - Chemistry and C hemistry - challengeOrdered By: Salvatore Valerio on 03-22-2023 ALP [Catalytic activity/Vol] 72 U/L 45-117 [facility] ALT [Catalytic activity/Vol] 35 U/L 13-56 [facility] CO2 [Moles/Vol] 27.0 mmol/L 21.0-32.0 [facility] Globulin (S) [Mass/Vol] 4.0 g/dL 2.2-4.2 [facility] Lipase [Catalytic activity/Vol] 43 U/L 13-75 [facility] Comment on above: Please note:LIPASE r evised reference range effective 22. New Lipase methodology. Expected to produce lower values than the previous assay method. NEW Reference Range: 13 - 75 U/L Urea nitrogen/Creatinine [Mass ratio] 22.8 mg/mg 10-20 [facility] - Hematology and Cell countsOrdered By: Salvatore Valerio on 03-22-2023 MCH (RBC) [Entitic mass] 27.6 pg 27.0-32.0 [facility] MCHC (RBC) [Mass/Vol] 31.5 g/dL 32-36 [facility] Nucleated RBC/100 WBC (Bld) [Ratio] 0 % 0-5 [facility] Platelets (Bld) [#/Vol] 347 10*3/uL 150-450 [facility] Mucus LM Ql (Urine sed)Order ed By: Salvatore Valerio on 03-22-2023 Mucus Ql (Urine sed) 0 SEEN /hpf [facility] Nitrite Test strip Ql (U)Ord ered By: Salvatore Valerio on 03-22-2023 Nitrite Ql (U) Negative Negative [facility] No Panel InformationOrdered By: Salvatore Valerio on 03-22-2023 Estimated Creatinine Clearance Calc 128.00 ml/min [facility] Estimated GFR (MDRD) Amer 123 mL/min >60 [facility] Comment on above: GFR Calc Estimated GFR (MDRD) Non-Af Amer 101 mL/min >60 [facility] Comment on above: Non- GFR Calc Troponin I High Sensitivity 4 pg/mL 3.0-54.0 [facility] Comment on above: Please Note: New Di t Units and Gender Specific Reference Ranges. For more information see Policy Stat Procedure Richardson High Sensitivity Troponin (TNIH) and attachments. Urine RBC 0-5 SEEN /hpf 0-5 [facility] Platelet mean volume Blas-Ec ker (Bld) [Entitic vol]Ordered By: Salvatore Valerio on 03-22-2023 Platelet mean volume (Bld) [Entitic vol] 9.0 fL 6.2-12.0 [facility] Protein Test strip Ql (U)Ord ered By: Salvatore Valerio on 03-22-2023 Protein Ql (U) Negative Negative [facility] RBC Auto (Bld) [#/Vol]Ordere d By: Salvatore Valerio on 03-22-2023 RBC (Bld) [#/Vol] 4.10 10*6/uL 4.2-5.4 [facility] Serum or plasma calcium tamera urement (mass/volume)Ordered By: Salvatore Valerio on 03-22-2023 Calcium [Mass/Vol] 8.8 mg/dL 8.5-10.1 [facility] Serum or plasma choriogonado tropin detectionOrdered By: Salvatore Valerio on 03-22-2023 HCG ( test) Ql Negative [facility] Serum or plasma creatinine m easurement (mass/volume)Ordered By: Salvatore Valerio on 03-22-2023 Creatinine [Mass/Vol] 0.70 mg/dL 0.55-1.02 [facility] Comment on above: The validity of the calculated GFR & GFRAA in patients over 70 years has not been determined. Clinical correlation is essential. Serum or plasma urea nitroge n measurement (mass/volume)Ordered By: Salvatore Valerio on 03-22-2023 Urea nitrogen [Mass/Vol] 16 mg/dL 7-18 [facility] Squamous epithelial cells de tection in urine sediment by light microscopyOrdered By: Salvatore Valerio on 03-22-2023 Epithelial cells.squamous LM Ql (Urine sed) 0-5 SEEN /hpf 5-10 [facility] Thin prep Papanicolaou smear with manual screeningOrdered By: Salvatore Valerio on 03-22-2023 Thin prep Papanicolaou smear with manual screening 3.6 g/dL 3.2-5.0 [facility] Thin prep Papanicolaou smear with manual screening 25 U/L 15-37 [facility] Thin prep Papanicolaou smear with manual screening 4 5-15 [facility] Urine blood detectionOrdered By: Salvatore Valerio on 03-22-2023 RBC Ql (U) 10 /ul Negative [facility] Urine clarityOrdered By: Ankush Valerio on 03-22-2023 Clarity (U) Sl. Cloudy Clear [facility] Urine color determinationOrd ered By: Salvatore Valerio on 03-22-2023 Color (U) Yellow Yellow [facility] Urine glucose detectionOrder ed By: Salvatore Valerio on 03-22-2023 Glucose Ql (U) Normal mg/dl Normal [facility] Urine leukocyte esterase det ection by dipstickOrdered By: Salvatore Valerio on 03-22-2023 Leukocyte esterase Test strip Ql (U) Negative Negative [facility] Urine pHOrdered By: Salvatore musa on 03-22-2023 pH (U) 6.5 [pH] 5.0 - 8.0 [facility] Urine sediment bacteria coun t by microscopy (number/high power field)Ordered By: Salvatore Valerio on 03-22-2023 Bacteria LM.HPF (Urine sed) [#/Area] 0 /[HPF] None Seen [facility] Urine specific gravity measu rementOrdered By: Salvatore Valerio on 03-22-2023 Specific gravity (U) [Rel density] 1.020 1.002-1.03 0 [facility] Urine urobilinogen measureme ntOrdered By: Salvatore Valerio on 03-22-2023 Urobilinogen Ql (U) Normal mg/dl Normal [facility] NITRIC OXIDE, EXHALEDon 10-22 0 [facility] No Panel Informationon 09-23 [facility] Throat specimen bacteria jarvis ntification by cultureOrdered By: Cristobal Brantley on 09-23-2022 Bacteria identified Cx Nom (Throat) streptococcus isolated. [facility] XR CHEST 2 VIEWSon XR CHEST 2 VIEWS ORIGINAL EXAMINATION: TWO XRAY VIEWS OF THE [...] Sign Date: 09/21/2022 8:53:21 AM Ordering Provider: GAURI MADERA [facility] ([place]) Throat specimen bacteria jarvis ntification by cultureOrdered By: Cristobal Brantley on 09-07-2022 Bacteria identified Cx Nom (Throat) streptococcus isolated. [facility] STREP A MOLECULAR (POC)on Procedural Control Valid [facility] Strep A (POCT) Positive Abnormal Negative [facility] Throat Streptococcus pyogene s antigen detection by immunofluorescenceOrdered By: Jeremiah Kwong on 08-08-2022 S. pyogenes Ag IF Ql (Throat) [facility] XR Ankle - right AP and Late ral and obliqueon 11-11-2020 IMPRESSION: No acute osseous abnormality. Tool Storage Attendant: NATIVIDAD Transcribe Date/Time: Nov 11 2020 4:54P Dictated by : MIAN CASTILLO MD This examination was interpreted and the report reviewed and electronically signed by: MIAN CASTILLO MD on Nov 11 2020 4:55PM [facility] DIVISION OF RADIOLOGY * * *Final Report* * * DATE OF EXAM: Nov 11 2020 4:50PM WOX [id number] - XR ANKLE 3V AP/LAT/OBL RT / PROCEDURE REASON: multiple diagnoses * * * * Physician Interpretation * * * * PROCEDURE: Right ankle INDICATION: Sprain of right ankle, unspecified ligament, subsequent encounter Pain and swelling of right ankle .Pt. states she fell down a couple of steps on 08/22/20. Still having Rt ankle pain throughout. TECHNIQUE: XR ANKLE 3V AP/LAT/OBL RT COMPARISON: None FINDINGS: No acute fracture or dislocation. Ankle mortise is symmetric. Mild diffuse soft tissue swelling. Possible ankle joint effusion. Tiny Achilles enthesophyte. DIVISION OF RADIOLOGY Provider, [facility] - 11/11/2020 * * *Final Report* * * DATE OF EXAM: Nov 11 2020 4:50PM WOX 5297 - XR ANKLE 3V AP/LAT/OBL RT / PROCEDURE REASON: multiple diagnoses * * * * Physician Interpretation * * * * PROCEDURE: Right ankle INDICATION: Sprain of right ankle, unspecified ligament, subsequent encounter Pain and swelling of right ankle .Pt. states she fell down a couple of steps on 08/22/20. Still having Rt ankle pain throughout. TECHNIQUE: XR ANKLE 3V AP/LAT/OBL RT COMPARISON: None FINDINGS: No acute fracture or dislocation. Ankle mortise is symmetric. Mild diffuse soft tissue swelling. Possible ankle joint effusion. Tiny Achilles enthesophyte. IMPRESSION IMPRESSION: No acute osseous abnormality. Tool Storage Attendant: PSCB Transcribe Date/Time: Nov 11 2020 4:54P Dictated by : MIAN CASTILLO MD This examination was interpreted and the report reviewed and electronically signed by: MIAN CASTILLO MD on Nov 11 2020 4:55PM EST [facility] Radiology Study observation (narrative) [facility] XR Ankle - right AP and Late ral and obliqueOrdered By: [facility] Provider on 11-11-2020 [facility] CNOVon 01-01-2020 CNOV Office Visit (AGHWW1 ) -------- ROWENA JAQUEZ ([id number]) 1990 F Date Time Provider Department 01/01/20 1:30 PM JOSE CHANEL AGHWW1 During your visit today, we recorded the following information about you: Respiration Weight Height 20/minute 56.7 kg 1.6 m María Ben Twingly 01/01/2020 1:52 PM Signed 2REVIEW OF SYSTEMS: GENERAL: Well developed, well nourished. No acute distress PAIN: Negative for pain, history of chronic pain or current treatment for chronic pain conditions 11/29 pain CARDIOVASCULAR: Negative for chest pain, leg swelling and palpations. MSK: Negative for joint pain, swelling, back pain, muscle pain. SKIN: Negative for lesions, rash, itching, metal sensitivity NEURO: Negative for seizure, trauma, numbness/tingling of extremities. ENDOCRINE: Negative for Diabetes Type 1 and Type 2 HEMATOLOGY: Negative for excessive bleeding, clots, bleeding disorders. Jose Chanel MD 01/01/2020 1:52 PM Signed 01/01/2020 RE: Rowena Jaquez DATE OF : 1990 Vitals: Resp 20 Ht 5' 3 (1.60m) Wt 125 lb (56.7kg) LMP 12/07/2019 BMI 22.15 kg/(m2). FOLLOW UP VISIT: Right arm pain HPI: She is still having discomfort in the right shoulder girdle with extension down her right arm. He states that physical therapy has caused increase in the discomfort. She has not been going to physical therapy. She has been taking the meloxicam. REVIEW OF SYSTEMS: MUSCULOSKELETAL: Negative for joint pain or swelling, back pain or muscle pain PAST MEDICAL HISTORY Diagnosis Date - Carpal [...] 03/09/2018 - HYSTEROSCOPY NEETU STERILIZATION Bilateral 2017 Social History Tobacco Use - Smoking status: Former Smoker Years: 4.00 Quit date: 05/2014 Years since quittin.6 - Smokeless tobacco: Never Used - Tobacco comment: vaps while at work Substance Use Topics - Alcohol use: Yes Comment: occasionally - Drug use: No ALLERGIES Allergen Reactions - Naproxen Rash - Penicillins Hives Current Medications: Current Outpatient Medications Medication Sig Dispense Refill - predniSONE (DELTASONE) 5 mg tablet DAY 1: 30 MG (6 TABS) TWICE DAILY DAY 2: 30 MG (6 TABS) TWICE DAILY DAY 3: 30 MG (6 TABS) TWICE DAILY DAY 4: 30 MG (6 TABS) TWICE DAILY DAY 5: 25 MG (5 TABS) TWICE DAILY DAY 6: 20 MG (4 TABS) TWICE DAILY DAY 7: 15 MG (3 TABS) TWICE DAILY DAY 8: 10 MG (2 TABS) TWICE DAILY DAY 9: 5 MG (1 TAB) TWICE DAILY BEGIN DIRECTED DAY 10: 5 MG (1 TAB) TWICE DAILY CONTINUE ____ DIRECTED AFTER FINISHING PREDNISONE 80 tablet 0 - meloxicam (MOBIC) 15 mg tablet Take 1 tablet by mouth once daily. 30 tablet 1 No current facility-administered medications for this visit. PHYSICAL EXAMINATION: She has pain with motion of the cervical spine. She has trapezial and upper medial scapular tenderness. She has no focal neurologic findings. She has good range of motion of her shoulder right shoulder. RADIOGRAPHIC EXAMINATION: None IMPRESSION: Cervical radiculitis PLAN: Based on the continuation of symptoms I would like to obtain an MRI study. She is in agreement with this. I will have her speak with a roadside mechanic today. I will see her back after the MRI is completed. Jose Chnael MD Referring Provider: [facility] [[id number]] Allergies As of Date: 01/01/2020 Noted Allergy Reaction NAPROXEN 03/24/2015 2 - Rash PENICILLINS 08/29/2014 4 - Hives Date Reviewed: 01/01/2020 Reviewed by: Jose Chanel - Fully Assessed Reason for Visit: Established Patient [175] Cmt: 11/29 pain Primary Visit Diagnosis:Rotator cuff tendinitis, right [M75.81] Other Visit Diagnosis:Spinal stenosis of cervical region [M48.02] Order(s):MRI CERVICAL SPINE WO IVCON [[id number]] Order #: [id number] FUTURE Prescriptions as of 01/01/2020 Sig: PREDNISONE 5 MG TABLET DAY 1: 30 MG (6 TABS) TWICE D* MELOXICAM 15 MG TABLET Take 1 tablet by mouth once d* More... Problem List As Of Date 01/01/2020 Noted Resolved Rh negative state in antepartum period [O26.899*09/16/2014 08/25/2016 More... 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 with care elsewhere, antepar*03/10/2016 08/25/2016 More... History of seizure [Z87.898] 03/10/2016 08/25/2016 More... History of depression [Z87.59, Z86.5*03/10/2016 08/25/2016 More... History of delivery [Z98.891] 03/10/2016 08/25/2016 More... PUPP (pruritic urticarial papules and plaques o*05/24/2016 08/25/2016 Disposition: Return mri cervical. Follow-up and Disposition History Recorded Encounter Status:Closed by JOSE CHANEL MD on 01/01/20 [facility] Theodore 01-01-2020 CNPN Telephone (AGPOB1) -------- ROWENA JAQUEZ ([id number]) 1990 F Date Time Provider Department 01/01/20 JOSE CHANEL AGPOB1 During your visit today, we recorded the following information about you: Swapna Guzman 01/01/2020 2:43 PM Signed See [facility] records from [facility], under scanned documents dated 01/01/20. Allergies As of Date: 01/01/2020 Noted Allergy Reaction NAPROXEN 03/24/2015 2 - Rash PENICILLINS 08/29/2014 4 - Hives Date Reviewed: 01/01/2020 Reviewed by: Jose Chanel - Fully Assessed Reason for Visit: Physical Therapy [503] Cmt: Physical Therapy Prescriptions as of 01/01/2020 Sig: PREDNISONE 5 MG TABLET DAY 1: 30 MG (6 TABS) TWICE D* MELOXICAM 15 MG TABLET Take 1 tablet by mouth once d* More... Problem List As Of Date 01/01/2020 Noted Resolved Rh negative state in antepartum period [O26.899*09/16/2014 08/25/2016 More... 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 with care elsewhere, antepar*03/10/2016 08/25/2016 More... History of seizure [Z87.898] 03/10/2016 08/25/2016 More... History of depression [Z87.59, Z86.5*03/10/2016 08/25/2016 More... History of delivery [Z98.891] 03/10/2016 08/25/2016 More... PUPP (pruritic urticarial papules and plaques o*05/24/2016 08/25/2016 Encounter Status:Closed by SWAPNA GUZMAN on 01/01/20 [facility] PROGRESSon 01-01-2020 PROGRESS HNO ID: [id number] Author: Jose Chanel Service: ? Author Type: Physician Type: Progress Notes Filed: 01/01/2020 1:52 PM Note Text: 01/01/2020 RE: Rowena Jaquez DATE OF : 1990 Vitals: Resp 20 Ht 5' 3 (1.60m) Wt 125 lb (56.7kg) LMP 12/07/2019 BMI 22.15 kg/(m2). FOLLOW UP VISIT: Right arm pain HPI: She is still having discomfort in the right shoulder girdle with extension down her right arm. He states that physical therapy has caused increase in the discomfort. She has not been going to physical therapy. She has been taking the meloxicam. REVIEW OF SYSTEMS: MUSCULOSKELETAL: Negative for joint pain or swelling, back pain or muscle pain PAST MEDICAL HISTORY Diagnosis Date - Carpal [...] 03/09/2018 - HYSTEROSCOPY NEETU STERILIZATION Bilateral 2017 Social History Tobacco Use - Smoking status: Former Smoker Years: 4.00 Quit date: 05/2014 Years since quittin.6 - Smokeless tobacco: Never Used - Tobacco comment: vaps while at work Substance Use Topics - Alcohol use: Yes Comment: occasionally - Drug use: No ALLERGIES Allergen Reactions - Naproxen Rash - Penicillins Hives Current Medications: Current Outpatient Medications Medication Sig Dispense Refill - predniSONE (DELTASONE) 5 mg tablet DAY 1: 30 MG (6 TABS) TWICE DAILY DAY 2: 30 MG (6 TABS) TWICE DAILY DAY 3: 30 MG (6 TABS) TWICE DAILY DAY 4: 30 MG (6 TABS) TWICE DAILY DAY 5: 25 MG (5 TABS) TWICE DAILY DAY 6: 20 MG (4 TABS) TWICE DAILY DAY 7: 15 MG (3 TABS) TWICE DAILY DAY 8: 10 MG (2 TABS) TWICE DAILY DAY 9: 5 MG (1 TAB) TWICE DAILY BEGIN DIRECTED DAY 10: 5 MG (1 TAB) TWICE DAILY CONTINUE ____ DIRECTED AFTER FINISHING PREDNISONE 80 tablet 0 - meloxicam (MOBIC) 15 mg tablet Take 1 tablet by mouth once daily. 30 tablet 1 No current facility-administered medications for this visit. PHYSICAL EXAMINATION: She has pain with motion of the cervical spine. She has trapezial and upper medial scapular tenderness. She has no focal neurologic findings. She has good range of motion of her shoulder right shoulder. RADIOGRAPHIC EXAMINATION: None IMPRESSION: Cervical radiculitis PLAN: Based on the continuation of symptoms I would like to obtain an MRI study. She is in agreement with this. I will have her speak with a roadside mechanic today. I will see her back after the MRI is completed. Jose Chanel MD [facility] PROGRESS HNO ID: [id number] Author: María Contreras (Tech) Service: ? Author Type: Translation Director Type: Progress Notes Filed: 01/01/2020 1:52 PM Note Text: 2REVIEW OF SYSTEMS: GENERAL: Well developed, well nourished. No acute distress PAIN: Negative for pain, history of chronic pain or current treatment for chronic pain conditions 11/29 pain CARDIOVASCULAR: Negative for chest pain, leg swelling and palpations. MSK: Negative for joint pain, swelling, back pain, muscle pain. SKIN: Negative for lesions, rash, itching, metal sensitivity NEURO: Negative for seizure, trauma, numbness/tingling of extremities. ENDOCRINE: Negative for Diabetes Type 1 and Type 2 HEMATOLOGY: Negative for excessive bleeding, clots, bleeding disorders. [facility] OBSOLETEon 12-25-2019 OBSOLETE Refill (AGHWW1) -------- ROWENA JAQUEZ ([id number]) 1990 F Date Time Provider Department 12/25/19 JOSE CHANEL AGHWW1 During your visit today, we recorded the following information about you: Swapna Guzman 12/25/2019 10:03 AM Arielle Guaman called today to report that the Tramadol, prednisone and meloxicam she was prescribed for her right shoulder isn't helping the pain, she is in excrutiating pain and requesting something stronger. She has on office visit scheduled for 01/01/20. If in agreement, attached is an order for hydrocodone for your approval. Swapna Guzman December 25, 2019 10:00 AM Swapna Guzman 12/27/2019 12:16 PM Signed Attempted to contact patient multiple times on 12/25/19, no answer, no voicemail set up. Allergies As of Date: 12/25/2019 Noted Allergy Reaction NAPROXEN 03/24/2015 2 - Rash PENICILLINS 08/29/2014 4 - Hives Date Reviewed: 12/10/2019 Reviewed by: Jose Chanel - Fully Assessed Reason for Visit: Refill Request [94] Primary Visit Diagnosis:Rotator cuff tendinitis, right [M75.81] Other Visit Diagnoses:Radiculitis of left cervical region [M54.12] Radiculitis of right cervical region [M54.12] Prescriptions as of 12/25/2019 Sig: PREDNISONE 5 MG TABLET DAY 1: 30 MG (6 TABS) TWICE D* MELOXICAM 15 MG TABLET Take 1 tablet by mouth once d* More... Problem List As Of Date 12/25/2019 Noted Resolved Rh negative state in antepartum period [O26.899*09/16/2014 08/25/2016 More... 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 with care elsewhere, antepar*03/10/2016 08/25/2016 More... History of seizure [Z87.898] 03/10/2016 08/25/2016 More... History of depression [Z87.59, Z86.5*03/10/2016 08/25/2016 More... History of delivery [Z98.891] 03/10/2016 08/25/2016 More... PUPP (pruritic urticarial papules and plaques o*05/24/2016 08/25/2016 Encounter Status:Closed by SWAPNA GUZMAN on 12/27/19 [facility] CNPNon 12-11-2019 CNPN Telephone (AGPOB1) -------- GISELEROWENA ([id number]) 1990 F Date Time Provider Department 12/11/19 JOSE CHANEL AGPOB1 During your visit today, we recorded the following information about you: Swapna Guzman 12/11/2019 2:18 PM Signed Rowena had an office visit 12/10/19 for R shoulder/arm pain. She was prescribed mobic and prednisone. She called today to ask for pain medicine, said she's in a lot of pain. Allergies As of Date: 12/11/2019 Noted Allergy Reaction NAPROXEN 03/24/2015 2 - Rash PENICILLINS 08/29/2014 4 - Hives Date Reviewed: 12/10/2019 Reviewed by: Jose Chanel - Fully Assessed Reason for Visit: Medication Question [1478] Primary Visit Diagnosis:Pain in joint of right shoulder [M25.511] Order(s):traMADol (ULTRAM) 50 mg tabletTake 1 tablet by mouth every 6 hours as needed for up to 7 days.Disp: 4028 tabletRfl: 0 Prescriptions as of 12/11/2019 Sig: TRAMADOL 50 MG TABLET Take 1 tablet by mouth every * PREDNISONE 5 MG TABLET DAY 1: 30 MG (6 TABS) TWICE D* MELOXICAM 15 MG TABLET Take 1 tablet by mouth once d* OXYCODONE-ACETAMINOPHEN 5 MG-* Take 1 tablet by mouth every * More... Problem List As Of Date 12/11/2019 Noted Resolved Rh negative state in antepartum period [O26.899*09/16/2014 08/25/2016 More... 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 with care elsewhere, antepar*03/10/2016 08/25/2016 More... History of seizure [Z87.898] 03/10/2016 08/25/2016 More... History of depression [Z87.59, Z86.5*03/10/2016 08/25/2016 More... History of delivery [Z98.891] 03/10/2016 08/25/2016 More... PUPP (pruritic urticarial papules and plaques o*05/24/2016 08/25/2016 Prescriptions ordered this encounter Disp Refills Start End TRAMADOL 50 MG TABLET 4028* 0 12/16/2019 12/23/2019 Class: Print RX Route: ORAL Sig: Take 1 tablet by mouth every 6 hours as needed for up to 7 days. Encounter Status:Closed by [facility]EL [facility] Office Visit (AGHWG1 ) -------- ROWENA JAQUEZ ([id number]) 1990 F Date Time Provider Department 12/10/19 2:45 PM JOSE CHANEL AGHWG1 During your visit today, we recorded the following information about you: Temperature Weight Height 98.2 degrees 60.3 kg 1.6 m Wiliam Chapman Tech 12/10/2019 4:00 PM Signed REVIEW OF SYSTEMS: GENERAL: Well developed, well nourished. No acute distress PAIN: Negative for pain, history of chronic pain or current treatment for chronic pain conditions CARDIOVASCULAR: Negative for chest pain, leg swelling and palpations. MSK: joint pain yes SKIN: Negative for lesions, rash, itching, metal sensitivity NEURO: Numbness/tingling of extremties and yes ENDOCRINE: Negative for Diabetes Type 1 and Type 2 HEMATOLOGY: Negative for excessive bleeding, clots, bleeding disorders. Jose Chanel MD 12/10/2019 4:00 PM Signed 12/10/2019 RE: Rowena Jaquez DATE OF : 1990 Rowena Jaquez is here to see me as a new patient with a chief complaint of No chief complaint on file.. HISTORY OF PRESENT ILLNESS: 29-year-old white female who presents today with right shoulder and arm pain. She states that she has had shoulder pain over the last 2 and half months. She notes a grinding sensation in her right shoulder. Subsequently has developed pain in the right trapezial region with some extension down her right arm. She feels numbness down her right arm. She is not having any neck pain. Not having any left arm pain. She denies any specific injury. She was seen in the emergency room. X-rays of the right shoulder were negative. She was placed on a 5-day course of prednisone. She has not noted any significant improvement. PHYSICAL EXAMINATION: She has reasonably good range of motion of her cervical spine. There is mild pain on cervical compression. This trapezial tenderness on the right. Is negative on the left. She is able to go through full range of motion of her shoulders bilaterally. There is no pain or weakness to resisted forward flexion, internal, or external rotation. Reflexes are 2+ and symmetric in the biceps, triceps, and brachioradialis locations. No other gross motor or sensory changes noted in the upper extremities symmetrically. RADIOGRAPHIC EXAMINATION: See note IMPRESSION: Cervical radiculitis, rotator cuff tendinitis PLAN: I told her that her new pain is probably coming from the cervical spine. I placed her onto a prednisone protocol to be followed by Jo. I would also like her to try a short course of physical therapy and have given her a prescription for this. Turn in 3 weeks for reevaluation. If she is still having discomfort we may consider an MRI study. Jose Chanel MD Referring Provider: SELF [200] Allergies As of Date: 12/10/2019 Noted Allergy Reaction NAPROXEN 03/24/2015 2 - Rash PENICILLINS 08/29/2014 4 - Hives Date Reviewed: 12/10/2019 Reviewed by: Jose Chanel - Fully Assessed Primary Visit Diagnosis:Rotator cuff tendinitis, right [M75.81] Other Visit Diagnosis:Radiculitis of right cervical region [M54.12] Order(s):XR CERV OTHER 4V AP/LAT/OBL [[id number]] Order #: [id number] predniSONE (DELTASONE) 5 mg tabletDAY 1: 30 MG (6 TABS) TWICE DAILY DAY 2: 30 MG (6 TABS) TWICE DAILY DAY 3: 30 MG (6 TABS) TWICE DAILY DAY 4: 30 MG (6 TABS) TWICE DAILY DAY 5: 25 MG (5 TABS) TWICE DAILY DAY 6: 20 MG (4 TABS) TWICE DAILY DAY 7: 15 MG (3 TABS) TWICE DAILY DAY 8: 10 MG (2 TABS) TWICE DAILY DAY 9: 5 MG (1 TAB) TWICE DAILY BEGIN DIRECTED DAY 10: 5 MG (1 TAB) TWICE DAILY CONTINUE ____ DIRECTED AFTER FINISHING PREDNISONEDisp: 80 tabletRfl: 0 meloxicam (MOBIC) 15 mg tabletTake 1 tablet by mouth once daily.Disp: 30 tabletRfl: 1 CONSULT TO PHYSICAL THERAPY (AG) [[id number]] Order #: [id number]: 1 Prescriptions as of 12/10/2019 Sig: OXYCODONE-ACETAMINOPHEN 5 MG-* Take 1 tablet by mouth every * PREDNISONE 5 MG TABLET DAY 1: 30 MG (6 TABS) TWICE D* MELOXICAM 15 MG TABLET Take 1 tablet by mouth once d* More... Problem List As Of Date 12/10/2019 Noted Resolved Rh negative state in antepartum period [O26.899*09/16/2014 08/25/2016 More... 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 with care elsewhere, antepar*03/10/2016 08/25/2016 More... History of seizure [Z87.898] 03/10/2016 08/25/2016 More... History of depression [Z87.59, Z86.5*03/10/2016 08/25/2016 More... History of delivery [Z98.891] 03/10/2016 08/25/2016 More... PUPP (pruritic urticarial papules and plaques o*05/24/2016 08/25/2016 Prescriptions ordered this encounter Disp Refills Start End PREDNISONE 5 MG TABLET 80 t* 0 12/10/2019 Class: Print RX Sig: DAY 1: 30 MG (6 TABS) TWICE DAILY DAY 2: 30 MG (6 TABS) TWICE DAILY DAY 3: 30 MG (6 TABS) TWICE DAILY DAY 4: 30 MG (6 TABS) TWICE DAILY DAY 5: 25 MG (5 TABS) TWICE DAILY DAY 6: 20 MG (4 TABS) TWICE DAILY DAY 7: 15 MG (3 TABS) TWICE DAILY DAY 8: 10 MG (2 TABS) TWICE DAILY DAY 9: 5 MG (1 TAB) TWICE DAILY BEGIN DIRECTED DAY 10: 5 MG (1 TAB) TWICE DAILY CONTINUE ____ DIRECTED AFTER FINISHING PREDNISONE MELOXICAM 15 MG TABLET 30 t* 1 12/10/2019 Route: ORAL Sig: Take 1 tablet by mouth once daily. Medications Discontinued During This Encounter Prescriptions - predniSONE (DELTASONE) 50 mg (Discontinued) Take 1 tablet by mouth once daily for 5 days. Disposition: Return in about 3 weeks (around 12/31/2019). Follow-up and Disposition History Recorded Encounter Status:Closed by JOSE CHANEL MD on 12/10/19 [facility] PROGRESSon 12-10-2019 PROGRESS HNO ID: [id number] Author: Jose Chanel Service: ? Author Type: Physician Type: Progress Notes Filed: 12/10/2019 4:00 PM Note Text: 12/10/2019 RE: Rowena Jaquez DATE OF : 1990 Rowena Jaquez is here to see me as a new patient with a chief complaint of No chief complaint on file.. HISTORY OF PRESENT ILLNESS: 29-year-old white female who presents today with right shoulder and arm pain. She states that she has had shoulder pain over the last 2 and half months. She notes a grinding sensation in her right shoulder. Subsequently has developed pain in the right trapezial region with some extension down her right arm. She feels numbness down her right arm. She is not having any neck pain. Not having any left arm pain. She denies any specific injury. She was seen in the emergency room. X-rays of the right shoulder were negative. She was placed on a 5-day course of prednisone. She has not noted any significant improvement. PHYSICAL EXAMINATION: She has reasonably good range of motion of her cervical spine. There is mild pain on cervical compression. This trapezial tenderness on the right. Is negative on the left. She is able to go through full range of motion of her shoulders bilaterally. There is no pain or weakness to resisted forward flexion, internal, or external rotation. Reflexes are 2+ and symmetric in the biceps, triceps, and brachioradialis locations. No other gross motor or sensory changes noted in the upper extremities symmetrically. RADIOGRAPHIC EXAMINATION: See note IMPRESSION: Cervical radiculitis, rotator cuff tendinitis PLAN: I told her that her new pain is probably coming from the cervical spine. I placed her onto a prednisone protocol to be followed by Jo. I would also like her to try a short course of physical therapy and have given her a prescription for this. Turn in 3 weeks for reevaluation. If she is still having discomfort we may consider an MRI study. Jose Chanel MD [facility] PROGRESS HNO ID: [id number] Author: Wiliam Chapman (Tech) Service: ? Author Type: Translation Director Type: Progress Notes Filed: 12/10/2019 4:00 PM Note Text: REVIEW OF SYSTEMS: GENERAL: Well developed, well nourished. No acute distress PAIN: Negative for pain, history of chronic pain or current treatment for chronic pain conditions CARDIOVASCULAR: Negative for chest pain, leg swelling and palpations. MSK: joint pain yes SKIN: Negative for lesions, rash, itching, metal sensitivity NEURO: Numbness/tingling of extremties and yes ENDOCRINE: Negative for Diabetes Type 1 and Type 2 HEMATOLOGY: Negative for excessive bleeding, clots, bleeding disorders. [facility] ED NOTEon 12-09-2019 ED NOTE HNO ID: [id number] Author: Milagros (Rn) ELIU [place] Service: Nursing Author Type: Registered Nurse Type: ED Notes Filed: 12/09/2019 4:24 PM Note Text: Called for triage at 1622, no answer. [facility] Progress Noteon 06-08-2017 [employer] Developer Authentication Interface Message Text Maternal Medicine ConsultDate of Service: 06/08/2017Referring Provider: Shanthi Moralez Care Provider: Vivi Spaulding for Consult: Dr. Shanthi Felton requests that Rowena be evaluateddue to concerns for an accreta with an anterior placenta and two prior cesareandeliveries.Daniela jackson is a 26 y.o. at 21w0d gestation [...] Multiple0 Live Births2# Outcome Date GA Lbr Carols/2nd Weight Sex Delivery Anes PTL Lv3 Current2 Term 07/12/16 39w0d 3.544 kg F CS-Unspec EPI Y JOSE D Name: Alvarez Term 04/17/15 38w0d 3.544 kg M CS-Unspec [...] No Muscular Dystrophy No Cystic Fibrosis No [place]'s Chorea No Mental Retardation/Autism No Maternal Metabolic [...] Negative for nausea, vomiting, abdominal pain, diarrhea andconstipation.Genitour inary: Negative for dysuria.Neurological: Negative for dizziness, weakness, numbness and headaches. Physical ExamNursing note and vitals reviewed.Constitutional: She is oriented to person, place, and time. She appearswell-developed and well-nourished. No distress.Pulmonary/Chest : No respiratory distress.Abdominal: Soft. She exhibits no distension. There is no tenderness. There is norebound and no guarding.Musculoskeletal : She exhibits no edema or tenderness.Neurological: She is alert and oriented to person, place, and time.Skin: Skin is warm and dry. She is not diaphoretic.Psychiatric: She has a normal mood and affect. Her behavior is normal. Judgmentand thought content normal.FHT: PositiveUltrasound Results:Normal anatomic survey. Biometry is consistent with gestational age. No evidenceof an accreta.Impression/Plan: 26 y.o. at 21w0d withActive Non-Hospital Problems Diagnosis [...] 4-6 weeks for an ultrasound.Jose Edwards MD Normal [facility] Lab Report: Miscellaneous La b Procedureon 02-25-2017 GE use only - for LinkLogic import when terms are not otherwise specified . Invalid Interpretation Code [facility] Lab Report: CT/NG [facility] BY PCR on 02-15-2017 Chlamydia trachomatis DNA [Presence] in Urine by Probe and target amplification method Negative Invalid Interpretation Code Negative [facility] Neisseria gonorrhoeae presence Negative Invalid Interpretation Code Negative [facility] Office Visiton 08-08-2016 Documentation of current medications (procedure) Done Invalid Interpretation Code [facility] Work Phone: Protein mass conc Done [facility] Work Phone: Tobacco smoking status NHIS Never Invalid Interpretation Code [facility] Work Phone: Tobacco smoking status NHIS Tobacco smoking status NHIS Invalid Interpretation Code [facility] Tobacco smoking status NHIS Never smoker [facility] Work Phone: Tobacco use [facility] Never smoker Invalid Interpretation Code [facility] Work Phone: Microbiology: Culture, Blood (WB)on 08-04-2016 Bacteria identified Cx Nom (Bld) BCNo growth in 5 days. Invalid Interpretation Code [facility] Work Phone: Microbiology: Culture, Deep Woundon 08-04-2016 CUD[facility] . [facility] Work Phone: [phone] C[facility] . [facility] Work Phone: GE use only - for LinkLogic import when terms are not otherwise specified . Invalid Interpretation Code [facility] Work Phone: Lab Report: Basic Metabolic Profile (BMP)on 08-03-2016 Anion gap 8 mmol/L Invalid Interpretation Code 07-04 [facility] Work Phone: Anion gap molar conc 8 mmol/L 07-[address] [facility] Work Phone: Calcium mass conc 8.5 mg/dL Invalid Interpretation Code 8.5-10.1 [facility] Work Phone: Chloride molar conc 99 mmol/L Invalid Interpretation Code 98-107 [facility] Work Phone: CO2 32.0 mmol/L Invalid Interpretation Code 21.0-32.0 [facility] Work Phone: CO2 ppres (BldV) 32.0 mmol/L 21.0-32.0 [facility] Work Phone: Creatinine mass conc 0.67 mg/dL Invalid Interpretation Code 0.55-1.02 [facility] Work Phone: eGFR (non-black) 136 mL/min/{1.73_m2} Invalid Interpretation Code >60 [facility] Work Phone: EST GFR - AA 136 mL/min >60 [facility] Work Phone: GFR/1.73 sq M predicted among non-blacks MDRD vol rate/area (S/P/Bld) 112 mL/min/{1.73_m2} Invalid Interpretation Code >60 [facility] Work Phone: Glucose 83 mg/dL Invalid Interpretation Code 70-110 [facility] Work Phone: Glucose mass conc 83 mg/dL 70-110 [facility] Work Phone: Potassium molar conc 3.6 mmol/L Invalid Interpretation Code 3.5-5.1 [facility] Work Phone: Sodium molar conc 139 mmol/L Invalid Interpretation Code 136-145 [facility] Work Phone: Urea nitrogen mass conc 9 mg/dL Invalid Interpretation Code 7-18 [facility] Work Phone: Urea nitrogen/Creatinine mass ratio 13.5 RATIO Invalid Interpretation Code 10-20 [facility] Work Phone: Lab Report: CBC-Complete Blo od Cnt No Diffon 08-03-2016 Erythrocyte distribution width Ratio (RBC) 52.0 fL High 35.1-43.9 [facility] Work Phone: Erythrocyte distribution width Ratio (RBC) 16.3 % High 11.6-14.6 [facility] Work Phone: Erythrocytes (RBC) 3.23 10*6/uL Low 4.2-5.[address] [facility] Work Phone: Hematocrit (HCT) 29.2 % Low 37-47 [facility] Work Phone: Hematocrit Volume Fraction (Bld) 29.2 % Low 37-47 [facility] Work Phone: Hemoglobin mass conc (Bld) 9.0 g/dL Low 12.0-15.0 [facility] Work Phone: MCH 27.9 pg Invalid Interpretation Code 27.0-32.0 [facility] Work Phone: MCH Entitic mass (RBC) 27.9 pg 27.0-32.0 [facility] Work Phone: MCHC 30.8 G/GL Low 32-36 [facility] Work Phone: MCHC mass conc (RBC) 30.8 G/GL Low 32-[address] [facility] Work Phone: MCV 90.4 fL Invalid Interpretation Code 81-99 [facility] Work Phone: MCV Entitic volume (RBC) 90.4 fL 81-99 [facility] Work Phone: Platelet mean volume Entitic volume (Bld) 8.9 fL 6.2-12.0 [facility] Work Phone: Platelets 709 10*3/mm3 High 150-450 [facility] Work Phone: Platelets #/vol (Bld) 709 10*3/mm3 High 150-450 [facility] Work Phone: PMV by Neeraj 8.9 fL Invalid Interpretation Code 6.2-12.0 [facility] Work Phone: RBC #/vol (Bld) 3.23 10*6/uL Low 4.2-5.4 [facility] Work Phone: RDW-CA 16.3 % High 11.6-14.6 [facility] Work Phone: red blood cell distribution width, size density 52.0 fL High 35.1-43.9 [facility] Work Phone: WBC #/vol (Bld) 10.7 10*3/uL 4.4-11.0 [facility] Work Phone: WBC (Leukocytes) 10.7 10*3/uL Invalid Interpretation Code 4.4-11.0 [facility] Work Phone: Microbiology: Culture, Wound on 08-03-2016 CUW Vancomycin $ 1 S [facility] Work Phone: wound culture Vancomycin $ 1 S Invalid Interpretation Code [facility] Lab Report: CBC W/Diff, Auto matedon 08-02-2016 Lymphocytes 5.24 X10 3/UL High 0.83-4.51 [facility] Work Phone: Lymphocytes #/vol (Bld) 5.24 X10 3/UL High 0.83-4.51 [facility] Work Phone: neutrophil count, blood 4.9 X10 3/UL Invalid Interpretation Code 2.0-7.7 [facility] Work Phone: Neutrophils #/vol (Bld) 4.9 X10 3/UL 2.0-7.7 [facility] Work Phone: Pathologist Cyto stain ID Nom (Cervical or vaginal smear or scraping) May foll Invalid Interpretation Code [facility] Work Phone: Replaced Document: (P) CBC W /Diff, Automatedon 08-02-2016 Erythrocyte distribution width Ratio (RBC) 16.6 % High 11.6-14.6 [facility] Work Phone: Erythrocyte distribution width Ratio (RBC) 55.3 fL High 35.1-43.9 [facility] Work Phone: Erythrocytes (RBC) 3.04 10*6/uL Low 4.2-5.[address] [facility] Work Phone: Hematocrit (HCT) 27.4 % Low 37-47 [facility] Work Phone: Hematocrit Volume Fraction (Bld) 27.4 % Low 37-47 [facility] Work Phone: Hemoglobin mass conc (Bld) 8.3 g/dL Low 12.0-15.0 [facility] Work Phone: [phone] MCHC 30.3 G/GL Low 32-36 [facility] Work Phone: MCHC mass conc (RBC) 30.3 G/GL Low 32-[address] [facility] Work Phone: Platelets 650 10*3/mm3 High 150-450 [facility] Work Phone: Platelets #/vol (Bld) 650 10*3/mm3 High 150-450 [facility] Work Phone: RBC #/vol (Bld) 3.04 10*6/uL Low 4.2-5.4 [facility] Work Phone: RDW-CA 16.6 % High 11.6-14.6 [facility] Work Phone: red blood cell distribution width, size density 55.3 fL High 35.1-43.9 [facility] Work Phone: WBC #/vol (Bld) 11.4 10*3/uL High 4.4-11.0 [facility] Work Phone: WBC (Leukocytes) 11.4 10*3/uL High 4.4-11.0 [facility] Work Phone: MCH 27.3 pg Invalid Interpretation Code 27.0-32.0 [facility] Work Phone: MCH Entitic mass (RBC) 27.3 pg 27.0-32.0 [facility] Work Phone: MCV 90.1 fL Invalid Interpretation Code 81-99 [facility] Work Phone: MCV Entitic volume (RBC) 90.1 fL 81-99 [facility] Work Phone: Platelet mean volume Entitic volume (Bld) 8.6 fL 6.2-12.0 [facility] Work Phone: PMV by Neeraj 8.6 fL Invalid Interpretation Code 6.2-12.0 [facility] Work Phone: Replaced Document: CBC W/Dif f, Automatedon 08-02-2016 CELLS COUNTED 100 MANUAL DIFF [facility] Work Phone: Eosinophils/100 leukocytes 3 % Invalid Interpretation Code 0-5 [facility] Work Phone: Eosinophils/100 WBC (Bld) 3 % 0-5 [facility] Work Phone: Lymphocytes/100 leukocytes 46 % High 19-41 [facility] Work Phone: Lymphocytes/100 WBC (Bld) 46 % High 19-41 [facility] Work Phone: Monocytes/100 leukocytes 6 % Invalid Interpretation Code 0-10 [facility] Work Phone: Monocytes/100 WBC (Bld) 6 % 0-10 [facility] Work Phone: Platelets LM Ql (Bld) MKD INC Invalid Interpretation Code ADEQ [facility] Work Phone: promyelocyte count, blood 2 (?) High 0-0 [facility] Work Phone: Promyelocytes #/vol (Bld) 2 (?) High 0-0 [facility] Work Phone: RBC morphology finding Nom (Bld) NORM C+C Invalid Interpretation Code NORM C AND C [facility] Work Phone: Segmented Neutrophils/100 leukocytes 43 % Low 47-70 [facility] Work Phone: Segmented neutrophils/100 WBC (Bld) 43 % Low 47-70 [facility] Work Phone: total cells counted, blood 100 Invalid Interpretation Code MANUAL DIFF [facility] Work Phone: Lab Report: CBC W/Diff, Auto matedon 08-01-2016 Lymphocytes #/vol (Bld) 3.55 X10 3/UL 0.83-4.51 [facility] Work Phone: [phone] Neutrophils #/vol (Bld) 9.4 X10 3/UL High 2.0-7.7 [facility] Work Phone: Pathologist Cyto stain ID Nom (Cervical or vaginal smear or scraping) May foll [facility] Work Phone: Replaced Document: (P) CBC W /Diff, Automatedon 08-01-2016 Erythrocyte distribution width Ratio (RBC) 16.4 % High 11.6-14.6 [facility] Work Phone: Erythrocyte distribution width Ratio (RBC) 53.8 fL High 35.1-43.9 [facility] Work Phone: Hematocrit Volume Fraction (Bld) 24.6 % Low 37-47 [facility] Work Phone: Hemoglobin mass conc (Bld) 7.7 g/dL Low 12.0-15.0 [facility] Work Phone: MCH Entitic mass (RBC) 27.7 pg 27.0-32.0 [facility] Work Phone: MCHC mass conc (RBC) 31.3 G/GL Low 32-[address] [facility] Work Phone: MCV Entitic volume (RBC) 88.5 fL 81-99 [facility] Work Phone: Platelet mean volume Entitic volume (Bld) 8.9 fL 6.2-12.0 [facility] Work Phone: Platelets #/vol (Bld) 538 10*3/mm3 High 150-450 [facility] Work Phone: RBC #/vol (Bld) 2.78 10*6/uL Low 4.2-5.4 [facility] Work Phone: WBC #/vol (Bld) 14.2 10*3/uL High 4.4-11.0 [facility] Work Phone: Replaced Document: (P) Cultu re, Blood (WB)on 08-01-2016 Bacteria identified Cx Nom (Bld) BCNo growth in 48 hours. Invalid Interpretation Code [facility] Work Phone: Replaced Document: (P) Cultu re, Deep Woundon 08-01-2016 CUDW Cult, AnaerobicCheck ing for anaerobes, further studies to follow. [facility] Work Phone: GE use only - for [employer] import when terms are not otherwise specified Cult, AnaerobicChecking for anaerobes, further studies to follow. Invalid Interpretation Code [facility] Work Phone: Replaced Document: (P) Cultu re, Woundon 08-01-2016 CUW Wound CultureNo growth-Final to follow [facility] Work Phone: wound culture Wound CultureNo growth-Final to follow Invalid Interpretation Code [facility] Work Phone: Replaced Document: CBC W/Dif f, Automatedon 08-01-2016 Band form neutrophils #/vol (Bld) 2 % Invalid Interpretation Code 0-5 [facility] Work Phone: CELLS COUNTED 100 MANUAL DIFF [facility] Work Phone: Lymphocytes/100 WBC (Bld) 25 % 19-41 [facility] Work Phone: Metamyelocytes/100 leukocytes 2 % High 0-1 [facility] Work Phone: Metamyelocytes/100 WBC (Bld) 2 % High 0-1 [facility] Work Phone: Monocytes/100 WBC (Bld) 7 % 0-10 [facility] Work Phone: Platelets LM Ql (Bld) MOD INC ADEQ [facility] Work Phone: RBC morphology finding Nom (Bld) NORM C+C NORM C AND C [facility] Work Phone: Segmented neutrophils/100 WBC (Bld) 64 % 47-70 [facility] Work Phone: Lab Report: Basic Metabolic Profile (BMP)on 07-31-2016 Creatinine 158.63 mL/min Invalid Interpretation Code [facility] Lab Report: CBC W/Diff, Auto matedon 07-31-2016 Basophils/100 leukocytes 0.1 % Invalid Interpretation Code 0-1 [facility] Basophils/100 WBC (Bld) 0.1 % 0-1 [facility] Work Phone: Eosinophils/100 leukocytes 0.0 % Invalid Interpretation Code 0-5 [facility] Eosinophils/100 WBC (Bld) 0.0 % 0-5 [facility] Work Phone: Immature granulocytes #/vol (Bld) 0.600 % 0.0-0.9 [facility] Work Phone: immature granulocytes, percentage of total cells, blood 0.600 % Invalid Interpretation Code 0.0-0.9 [facility] Neutrophils/100 leukocytes 86.6 % High 47-70 [facility] Neutrophils/100 WBC (Bld) 86.6 % High 47-70 [facility] Work Phone: Lab Report: Vancomycin, Trou gh Levelon 07-31-2016 Vancomycin trough mass conc 8.1 ug/mL Invalid Interpretation Code 5.0-15.0 [facility] Work Phone: Lab Report: Basic Metabolic Profile (BMP)on 07-30-2016 Creatinine 115.83 mL/min Invalid Interpretation Code [facility] Work Phone: Lab Report: Comprehensive Pr tabolic Profilon 07-30-2016 Alanine aminotransferase (ALT) 23 U/L Invalid Interpretation Code 12-78 [facility] Work Phone: Albumin 1.7 g/dL Low 3.4-5.0 [facility] Work Phone: Albumin/Globulin Ratio 0.4 {ratio} Low 0.9-2.4 [facility] Work Phone: Alkaline phosphatase (ALP) 122 U/L High 45-117 [facility] Work Phone: [phone] ALP enzyme act/vol (Bld) 122 U/L High 45-117 [facility] Work Phone: Aspartate aminotransferase (AST) 27 U/L Invalid Interpretation Code 15-37 [facility] Work Phone: Bilirubin (total) 0.40 mg/dL Invalid Interpretation Code 0.20-1.00 [facility] Work Phone: Globulin 4.3 g/dL High 2.3-3.5 [facility] Work Phone: Globulin mass conc (S) 4.3 g/dL High 2.3-3.5 [facility] Work Phone: Protein 6.0 g/dL Low 6.4-8.2 [facility] Work Phone: Lab Report: Lactic Acidon Lactate 1.4 mmol/L Invalid Interpretation Code 0.4-2.0 [facility] Work Phone: Lab Report: Partial Thrombop last Timeon 07-30-2016 aPTT 42.8 s High 24.1-36.2 [facility] Work Phone: Lab Report: Prothrombin Time w/INRon 07-30-2016 Coagulation tissue factor induced in platelet poor plasma 16 s High 11.7-14.9 [facility] Work Phone: INR Coag RelTime (PPP) 1.3 {INR} [facility] Work Phone: [phone] INR in blood by coagulation 1.3 {INR} Invalid Interpretation Code [facility] Work Phone: [phone] Replaced Document: (P) CBC W /Diff, Automatedon 07-30-2016 complete blood count (CBC), comments SCANNED Invalid Interpretation Code [facility] Work Phone: SMEAR COMMENT SCANNED [facility] Work Phone: Basophils/100 leukocytes 0.1 % Invalid Interpretation Code 0-1 [facility] Work Phone: Eosinophils/100 leukocytes 0.1 % Invalid Interpretation Code 0-5 [facility] Work Phone: [phone] immature granulocytes, percentage of total cells, blood 0.500 % Invalid Interpretation Code 0.0-0.9 [facility] Work Phone: Neutrophils/100 leukocytes 78.9 % High 47-70 [facility] Work Phone: [phone] Replaced Document: CBC W/Dif f, Automatedon 07-30-2016 Anisocytosis presence 1+ Invalid Interpretation Code [facility] Work Phone: Anisocytosis Ql (Bld) 1+ [facility] Work Phone: Hypochromia presence 1+ Invalid Interpretation Code [facility] Work Phone: Hypochromia Ql (Bld) 1+ [facility] Work Phone: Vital Signs Date Time Vital Sign Value Performing Clinician Facility 04-23-2024 10:10-0500 Body mass index (BMI) [Ratio] 39.01 kg/m2 Krislyn Aberegg PA Work Phone: [facility] 04-23-2024 10:10-0500 Body temperature 99.19 [degF] Krislyn Aberegg PA Work Phone: [facility] 04-23-2024 10:10-0500 Body weight 99.9 kg Krislyn Aberegg PA Work Phone: [facility] 04-23-2024 10:10-0500 Diastolic blood pressure 72 mm[Hg] Krislyn Aberegg PA Work Phone: [facility] 04-23-2024 10:10-0500 Heart rate 102 /min Krislyn Aberegg PA Work Phone: [facility] 04-23-2024 10:10-0500 Respiratory rate 18 /min Krislyn Aberegg PA Work Phone: [facility] 04-23-2024 10:10-0500 SaO2% (BldA) [Mass fraction] 97 % Krislyn Aberegg PA Work Phone: [facility] 04-23-2024 10:10-0500 Systolic blood pressure 126 mm[Hg] Krislyn Aberegg PA Work Phone: [facility] 08-10-2023 13:50-0400 Body mass index (BMI) [Ratio] 40.74 kg/m2 Jaimie Chen MD Work Phone: [facility] 08-10-2023 13:50-0400 Body weight 104.33 kg Jaimie Chen MD Work Phone: [facility] 05-15-2023 08:55-0400 Body weight 100.7 kg Paige Older AUTOMATION CONTROLS ENGINEER.SPORTS PHYSIOTHERAPIST Work Phone: [facility] 05-15-2023 08:55-0400 Diastolic blood pressure 78 mm[Hg] Paige Older AUTOMATION CONTROLS ENGINEER.SPORTS PHYSIOTHERAPIST Work Phone: [facility] 05-15-2023 08:55-0400 Heart rate 83 /min Paige Older AUTOMATION CONTROLS ENGINEER.SPORTS PHYSIOTHERAPIST Work Phone: [facility] 05-15-2023 08:55-0400 Respiratory rate 16 /min Paige Older AUTOMATION CONTROLS ENGINEER.SPORTS PHYSIOTHERAPIST Work Phone: [facility] 05-15-2023 08:55-0400 SaO2% (BldA) [Mass fraction] 96 % Paige Older AUTOMATION CONTROLS ENGINEER.SPORTS PHYSIOTHERAPIST Work Phone: [facility] 05-15-2023 08:55-0400 Systolic blood pressure 122 mm[Hg] Paige Older AUTOMATION CONTROLS ENGINEER.SPORTS PHYSIOTHERAPIST Work Phone: [facility] 05-03-2023 07:41-0400 Body weight 99.79 kg Paige Older AUTOMATION CONTROLS ENGINEER.SPORTS PHYSIOTHERAPIST Work Phone: [facility] 05-03-2023 07:41-0400 Diastolic blood pressure 70 mm[Hg] Paige Older AUTOMATION CONTROLS ENGINEER.SPORTS PHYSIOTHERAPIST Work Phone: [facility] 05-03-2023 07:41-0400 Heart rate 84 /min Paige Older AUTOMATION CONTROLS ENGINEER.SPORTS PHYSIOTHERAPIST Work Phone: [facility] 05-03-2023 07:41-0400 Respiratory rate 16 /min Paige Older AUTOMATION CONTROLS ENGINEER.SPORTS PHYSIOTHERAPIST Work Phone: [facility] 05-03-2023 07:41-0400 SaO2% (BldA) [Mass fraction] 97 % Paige Older AUTOMATION CONTROLS ENGINEER.SPORTS PHYSIOTHERAPIST Work Phone: [facility] 05-03-2023 07:41-0400 Systolic blood pressure 118 mm[Hg] Paige Older AUTOMATION CONTROLS ENGINEER.SPORTS PHYSIOTHERAPIST Work Phone: [facility] 04-04-2023 14:48-0500 Body height 160 cm Thelma Madi PA-C Work Phone: [facility] 04-04-2023 14:48-0500 Body weight 98.25 kg Thelma Madi PA-C Work Phone: [facility] 04-04-2023 14:48-0500 Diastolic blood pressure 68 mm[Hg] Thelma Madi PA-C Work Phone: [facility] 04-04-2023 14:48-0500 Heart rate 90 /min Thelma Madi PA-C Work Phone: [facility] 04-04-2023 14:48-0500 Respiratory rate 14 /min Thelma Madi PA-C Work Phone: [facility] 04-04-2023 14:48-0500 SaO2% (BldA) [Mass fraction] 97 % Thelma Madi PA-C Work Phone: [facility] 04-04-2023 14:48-0500 Systolic blood pressure 110 mm[Hg] Thelma Madi PA-C Work Phone: [facility] 03-22-2023 10:46-0500 Diastolic blood pressure 79 mm[Hg] [facility] 03-22-2023 10:46-0500 Heart rate 71 /min [facility] 03-22-2023 10:46-0500 Systolic blood pressure 113 mm[Hg] [facility] 03-22-2023 06:51-0500 Body height 160.02 cm [facility] 03-22-2023 06:51-0500 Body mass index (BMI) [Ratio] 39.2 kg/m2 [facility] 03-22-2023 06:51-0500 Body temperature 97 [degF] [facility] 03-22-2023 06:51-0500 Body weight 100.4 kg [facility] 03-22-2023 06:51-0500 Respiratory rate 18 /min [facility] 01-31-2024 06:51-0500 SaO2% (BldA) [Mass fraction] 100 % [facility] 02-09-2023 11:47-0500 Body weight 96.16 kg Paige Older AUTOMATION CONTROLS ENGINEER.SPORTS PHYSIOTHERAPIST Work Phone: [facility] 02-09-2023 11:47-0500 Diastolic blood pressure 68 mm[Hg] Paige Older AUTOMATION CONTROLS ENGINEER.SPORTS PHYSIOTHERAPIST Work Phone: [facility] 02-09-2023 11:47-0500 Heart rate 84 /min Paige Older AUTOMATION CONTROLS ENGINEER.SPORTS PHYSIOTHERAPIST Work Phone: [facility] 02-09-2023 11:47-0500 Respiratory rate 16 /min Paige Older AUTOMATION CONTROLS ENGINEER.SPORTS PHYSIOTHERAPIST Work Phone: [facility] 02-09-2023 11:47-0500 SaO2% (BldA) [Mass fraction] 99 % Paige Older AUTOMATION CONTROLS ENGINEER.SPORTS PHYSIOTHERAPIST Work Phone: [facility] 02-09-2023 11:47-0500 Systolic blood pressure 118 mm[Hg] Paige Older AUTOMATION CONTROLS ENGINEER.SPORTS PHYSIOTHERAPIST Work Phone: [facility] 12-28-2022 15:11-0500 Body weight 92.08 kg Paige Older AUTOMATION CONTROLS ENGINEER.SPORTS PHYSIOTHERAPIST Work Phone: [facility] 12-28-2022 15:11-0500 Diastolic blood pressure 78 mm[Hg] Paige Older AUTOMATION CONTROLS ENGINEER.SPORTS PHYSIOTHERAPIST Work Phone: [facility] 12-28-2022 15:11-0500 Heart rate 80 /min Paige Older AUTOMATION CONTROLS ENGINEER.SPORTS PHYSIOTHERAPIST Work Phone: [facility] 12-28-2022 15:11-0500 Respiratory rate 16 /min Paige Older AUTOMATION CONTROLS ENGINEER.SPORTS PHYSIOTHERAPIST Work Phone: [facility] 12-28-2022 15:11-0500 Systolic blood pressure 118 mm[Hg] Paige Older AUTOMATION CONTROLS ENGINEER.SPORTS PHYSIOTHERAPIST Work Phone: [facility] 11-30-2022 15:25-0400 Body weight 91.17 kg Paige Older AUTOMATION CONTROLS ENGINEER.SPORTS PHYSIOTHERAPIST Work Phone: [facility] 11-30-2022 15:25-0400 Diastolic blood pressure 78 mm[Hg] Paige Older AUTOMATION CONTROLS ENGINEER.SPORTS PHYSIOTHERAPIST Work Phone: [facility] 11-30-2022 15:25-0400 Heart rate 92 /min Paige Older AUTOMATION CONTROLS ENGINEER.SPORTS PHYSIOTHERAPIST Work Phone: [facility] 11-30-2022 15:25-0400 Respiratory rate 16 /min Paige Older AUTOMATION CONTROLS ENGINEER.SPORTS PHYSIOTHERAPIST Work Phone: [facility] 11-30-2022 15:25-0400 SaO2% (BldA) [Mass fraction] 99 % Paige Older AUTOMATION CONTROLS ENGINEER.SPORTS PHYSIOTHERAPIST Work Phone: [facility] 11-30-2022 15:25-0400 Systolic blood pressure 122 mm[Hg] Paige Older AUTOMATION CONTROLS ENGINEER.SPORTS PHYSIOTHERAPIST Work Phone: [facility] 09-23-2022 08:40-0400 Body weight 88 kg Jaimie Chen MD Work Phone: [facility] 09-23-2022 08:40-0400 Heart rate 83 /min Jaimie Chen MD Work Phone: [facility] 09-23-2022 08:40-0400 Respiratory rate 15 /min Jaimie Chen MD Work Phone: [facility] 09-23-2022 08:40-0400 SaO2% (BldA) [Mass fraction] 99 % Jaimie Chen MD Work Phone: [facility] 09-21-2022 07:53-0400 Body height 160 cm GAURI MADERA MD [facility] 09-21-2022 07:53-0400 Body temperature 99.14 [degF] GAURI MADERA MD [facility] 09-21-2022 07:53-0400 Body weight 86.4 kg GAURI MADERA MD [facility] 09-21-2022 07:53-0400 Diastolic Blood Pressure Non-Invasive 81 1 GAURI MADERA MD [facility] 09-21-2022 07:53-0400 Heart rate 78 /min GAURI MADERA MD [facility] 09-21-2022 07:53-0400 Respiratory rate 20 /min GAURI MADERA MD [facility] 09-21-2022 07:53-0400 Systolic Blood Pressure Non-Invasive 128 1 GAURI MADERA MD [facility] 09-15-2022 07:33-0400 Body height 160 cm Pulm [facility] Work Phone: [facility] 09-15-2022 07:33-0400 Body weight 90.27 kg [facility]m [facility] Work Phone: [facility] 08-29-2022 14:38-0400 Body temperature 98.6 [degF] Paige Older AUTOMATION CONTROLS ENGINEER.SPORTS PHYSIOTHERAPIST Work Phone: [facility] 08-29-2022 14:38-0400 Body weight 88.45 kg Paige Older AUTOMATION CONTROLS ENGINEER.SPORTS PHYSIOTHERAPIST Work Phone: [facility] 08-29-2022 14:38-0400 Diastolic blood pressure 70 mm[Hg] Paige Older AUTOMATION CONTROLS ENGINEER.SPORTS PHYSIOTHERAPIST Work Phone: [facility] 08-29-2022 14:38-0400 Heart rate 80 /min Paige Older AUTOMATION CONTROLS ENGINEER.SPORTS PHYSIOTHERAPIST Work Phone: [facility] 08-29-2022 14:38-0400 Respiratory rate 16 /min Paige Older AUTOMATION CONTROLS ENGINEER.SPORTS PHYSIOTHERAPIST Work Phone: [facility] 08-29-2022 14:38-0400 SaO2% (BldA) [Mass fraction] 98 % Paige Older AUTOMATION CONTROLS ENGINEER.SPORTS PHYSIOTHERAPIST Work Phone: [facility] 08-29-2022 14:38-0400 Systolic blood pressure 112 mm[Hg] Paige Older AUTOMATION CONTROLS ENGINEER.SPORTS PHYSIOTHERAPIST Work Phone: [facility] 08-08-2022 06:46-0400 Body height 160.02 cm [facility] 08-08-2022 06:46-0400 Body mass index (BMI) [Ratio] 35 kg/m2 [facility] 08-08-2022 06:46-0400 Body temperature 97.2 [degF] [facility] 08-08-2022 06:46-0400 Body weight 89.7 kg [facility] 08-08-2022 06:46-0400 Diastolic blood pressure 75 mm[Hg] [facility] 08-08-2022 06:46-0400 Heart rate 86 /min [facility] 08-08-2022 06:46-0400 Respiratory rate 18 /min [facility] 08-08-2022 06:46-0400 SaO2% (BldA) [Mass fraction] 98 % [facility] 08-08-2022 06:46-0400 Systolic blood pressure 129 mm[Hg] [facility] 08-08-2016 14:20-0400 BMI (Body Mass Index) 30.55 kg/m2 [facility] Work Phone: 08-08-2016 14:20-0400 Body Temperature 97.7 [degF] [facility] Work Phone: 08-08-2016 14:20-0400 BP Diastolic 75 mm[Hg] [facility] Work Phone: 08-08-2016 14:20-0400 BP Systolic 112 mm[Hg] [facility] Work Phone: 08-08-2016 14:20-0400 Height 162.56 cm [facility] Work Phone: 08-08-2016 14:20-0400 Pulse (Heart Rate) 77 /min [facility] Work Phone: 08-08-2016 14:20-0400 Pulse Oximetry 99 % [facility] Work Phone: 08-08-2016 14:20-0400 Respiratory Rate 18 /min [facility] Work Phone: 08-08-2016 14:20-0400 Weight 80.74 kg Kandy Lincoln LPN [facility] Work Phone: 07-31-2016 06:54-0400 Body surface area Derived from formula 158.63 mL/min Kandy Lincoln LPN [facility] Work Phone: Encounters Encounter Date Encounter Type Care Provider Facility Start: 09-18-2024 ambulatory Carrol Gallaghernger [facility] Faci lity:[facility] Start: 04-23-2024 End: 04-23-2024 ambulatory [facility] Facility:[facility] Start: 04-23-2024 End: 04-23-2024 Office outpatient visit 15 minutes Terence DE LA O Work Phone: [facility] Comment on above: Sore throat (Primary Dx); URI, acute Start: 2023 End: 10-19-2023 Refill Gonzales Goddard MD Work Phone: [facility] Comment on above: Refill Request Start: 08-10-2023 End: 08-10-2023 [facility] Facility:[facility] Start: 08-10-2023 End: 08-10-2023 Patient encounter procedure Jaimie Chen MD Work Phone: [facility] Comment on above: Mild persistent asth ma without complication (Primary Dx); Environmental allergies; Obesity, Class III, BMI 40-49.9 (morbid obesity) ([facility]) Start: 08-09-2023 Refill Gonzales Avalos Work Phone: [facility] Comment on above: Refill Request Start: 06-26-2023 Refill Gonzales Avalos Work Phone: [facility] Comment on above: Refill Request Start: 06-05-2023 Refill Gonzales Avalos Work Phone: [facility] Comment on above: Refill Request Start: 05-15-2023 End: 05-15-2023 ambulatory GONZALES GANMARIA GUADALUPE Facility:[facility] Start: 05-15-2023 End: 05-15-2023 Patient encounter procedure Paige Ayala [employer] CONTROLS ENGINEER.[employer]ORTS PHYSIOTHERAPIST Work Phone: [facility] Comment on above: Class 2 obesity with body mass index (BMI) of 39.0 to 39.9 in adult, unspecified obesity type, unspecified whether serious comorbidity present (Primary Dx); Weight loss counseling, encounter for Start: 05-03-2023 End: 05-03-2023 Patient encounter procedure Paige Ayala AUTOMATION CONTROLS ENGINEER.SPORTS PHYSIOTHERAPIST Work Phone: [facility] Comment on above: Attention deficit di sorder (ADD) in adult (Primary Dx); Class 2 obesity with body mass index (BMI) of 38.0 to 38.9 in adult, unspecified obesity type, unspecified whether serious comorbidity present Start: 05-03-2023 End: 05-03-2023 ambulatory [facility] Facility:[facility] Start: 04-19-2023 Refill Gonzales Avalos Work Phone: Internal Medicine [place] Comment on above: Refill Request Start: 04-14-2023 End: 04-14-2023 ambulatory [facility] Work Phone: Start: 04-14-2023 End: 04-14-2023 Patient encounter procedure [facility]Sleep Lab Work Phone: Start: 04-04-2023 End: 04-04-2023 Office outpatient visit 15 minutes Thelma Marie PA-C Work Phone: Pulmonary Medicine Comment on above: Mild persistent asth ma without complication (Primary Dx); Seasonal allergic rhinitis due to other allergic trigger; Observed sleep apnea Start: 03-22-2023 End: 03-22-2023 Emergency department patient visit [facility]Emergency Department Work Phone: Start: 03-20-2023 Telephone encounter Alejandro galarza MD Work Phone: Otolaryngology Comment on above: Appointment Start: 02-09-2023 End: 02-09-2023 Patient encounter procedure Paige Older AUTOMATION CONTROLS ENGINEER.SPORTS PHYSIOTHERAPIST Work Phone: Internal [facility] [place] Comment on above: Attention deficit di sorder (ADD) in adult (Primary Dx) Start: 01-02-2023 Telephone encounter Paige Older AUTOMATION CONTROLS ENGINEER.SPORTS PHYSIOTHERAPIST Work Phone: Family Medicine [place] Comment on above: Medication Problem Start: 12-28-2022 End: 12-28-2022 Patient encounter procedure Paige Older AUTOMATION CONTROLS ENGINEER.SPORTS PHYSIOTHERAPIST Work Phone: Internal Medicine [place] Comment on above: Anxiety and depressi on (Primary Dx); Attention deficit disorder (ADD) in adult; Encounter for immunization Start: 12-13-2022 Telephone encounter Paige Older AUTOMATION CONTROLS ENGINEER.SPORTS PHYSIOTHERAPIST Work Phone: Internal Medicine [place] Comment on above: Patient Question Start: 11-30-2022 End: 11-30-2022 Patient encounter procedure Paige Older AUTOMATION CONTROLS ENGINEER.SPORTS PHYSIOTHERAPIST Work Phone: Internal Medicine [place] Comment on above: Anxiety and depressi on (Primary Dx); Attention deficit disorder (ADD) in adult Start: 11-09-2022 End: 11-09-2022 [facility] Start: 11-09-2022 End: 11-09-2022 Patient encounter procedure [facility] Work Phone: [facility] Start: 10-07-2022 End: 10-07-2022 ambulatory [facility] Work Phone: Start: 10-07-2022 End: 10-07-2022 Patient encounter procedure [facility]-Cat Scan, [facility] Work Phone: Start: 09-30-2022 End: 09-30-2022 Orders Only Jaimie Chen MD Work Phone: Pulmonary Medicine Start: 09-30-2022 End: 09-30-2022 Patient encounter procedure [facility]Radiology, [facility] Work Phone: Start: 09-23-2022 End: 09-23-2022 ambulatory [facility] Work Phone: Start: 09-23-2022 End: 09-23-2022 [facility] Work [facility] Start: 09-23-2022 End: 09-23-2022 ambulatory [facility] Work Phone: [facility] Comment on above: Spirometry Start: 09-23-2022 End: 09-23-2022 Patient encounter procedure [facility] Work Phone: [facility] Comment on above: Mild persistent asth ma without complication (Primary Dx); Seasonal allergic rhinitis due to other allergic trigger Start: 09-21-2022 End: 09-21-2022 Emergency department patient visit GAURI MADERA MD Facility:B Start: 09-21-2022 End: 09-21-2022 Emergency department patient visit GAURI MADERA MD [facility] Start: 09-15-2022 End: 09-15-2022 ambulatory [facility] Work Phone: PUL LAB [facility] Comment on above: Spirometry Start: 09-15-2022 End: 09-15-2022 Patient encounter procedure [facility] Work Phone: [facility] Start: 09-07-2022 End: 09-07-2022 [facility] Start: 09-05-2022 Telephone encounter Paige Ayala APRN.SPORTS PHYSIOTHERAPIST Work Phone: Internal Medicine [place] Comment on above: Results Start: 08-30-2022 E-mail encounter fro m caregiver Paige Ayala APRN.SPORTS PHYSIOTHERAPIST Work Phone: [facility] Start: 08-30-2022 Follow-up encounter Paige Ayala APRN.SPORTS PHYSIOTHERAPIST Work Phone: Internal Medicine [place] Comment on above: Visit Follow up Start: 08-30-2022 Telephone encounter Gonzales cárdenas MD Work Phone: [facility] [place] Comment on above: Results (labs) Start: 08-29-2022 End: 08-29-2022 Patient encounter procedure Paige Ayala APRN.SPORTS PHYSIOTHERAPIST Work Phone: Internal Medicine [place] Comment on above: Recurrent streptococ grabiel pharyngitis (Primary Dx); Sore throat; Acute cough; Anemia, unspecified type Start: 08-08-2022 End: 08-08-2022 [facility] Start: 08-02-2022 Telephone encounter Gonzales cárdenas MD Work Phone: Internal Medicine [place] Comment on above: Results Start: 11-11-2020 End: 11-11-2020 Subsequent hospital visit by physician Xr [facility] Work Phone: Radiology Comment on above: Sprain of right ankl e, unspecified ligament, subsequent encounter [S93.401D] Start: 08-21-2017 Ambulatory [facility] Start: 07-10-2017 End: 07-10-2017 [facility] Start: 06-08-2017 End: 06-08-2017 [facility] Procedures Date Procedure Procedure Detail Performing Clinician Start: 04-23-2024 STREP A MOLECULAR (POC) Terence DE LA O Work Phone: Start: 03-22-2023 Plain chest X-ray Start: 03-22-2023 Computed tomography of abdomen and pelvis with intravenous contrast Start: 12-28-2022 INFLUENZA VACCINE, AGE 6 MO - 64 YR, QUADRIVALENT (AFLURIA, FLULAVAL, FLUZONE) Paige Ayala APRN.SPORTS PHYSIOTHERAPIST Work Phone: Start: 11-09-2022 Nitric oxide gas determination Jaimie Chen MD Work Phone: Start: 10-07-2022 CT of soft tissues of neck with contrast Start: 09-30-2022 Radiography of esophagus Start: 09-23-2022 Bacteria identification test Start: 09-23-2022 Nitric oxide gas determination Jaimie Chen MD Work Phone: Start: 09-15-2022 Brncdilat rspse spmtry pre&post-brncdilat admn Britt Corados AUTOMATION CONTROLS ENGINEER.PEN RULER OPERATOR Work Phone: Start: 09-07-2022 Bacteria identification test Start: 08-29-2022 STREP A MOLECULAR (POC) Paige Ayala AUTOMATION CONTROLS ENGINEERFrankyC [employer]IMMER [employer] WHEEL Work Phone: Start: 08-08-2022 Streptococcus pyogenes antigen assay Start: 08-08-2022 Plain chest X-ray Start: 11-11-2020 Radex ankle complete minimum 3 views Aditi Severino AUTOMATION CONTROLS ENGINEER.SPORTS PHYSIOTHERAPIST Work Phone: Start: 03-10-2016 End: 08-25-2016 H/O: section History of delivery Gonzales Goddard MD Work Phone: section GAURI MARIA MD Cholecystectomy GAURI Person MD H/O: section Previous c esarean section Umbilical hernia (disorder) GAURI MADERA MD Plan of Treatment Date Care Activity Detail Author Start: 08-30-2027 Urine microalbumin profile [facility] Start: 05-14-2024 Annual PCP Team Carrier Packer karlee Disease Visit Annual PCP Team Chronic Disease Visit [facility] Start: 05-02-2024 Annual PCP Team Carrier Packer karlee Disease Visit Annual PCP Team Chronic Disease Visit [facility] Start: 02-27-2024 End: 02-27-2024 Patient encounter procedure 02/27/2024 9:30 AM EST Office Visit Pulmonary Medicine [address] [place] [address] Jaimie Chen MD [address] [place] [id number] 6 mo f/up Pulmonary Medicine Comment on above: 6 mo f/up Start: 02-10-2024 Annual PCP Team Carrier Packer karlee Disease Visit Annual PCP Team Chronic Disease Visit [facility] Start: 12-29-2023 Annual PCP Team Carrier Packer karlee Disease Visit Annual PCP Team Chronic Disease Visit [facility] Start: 12-29-2023 Covid-19 Vaccine ( season) Covid-19 Vaccine () [facility] Comment on above: Postponed from 10/21 (Declined at this time) Start: 12-29-2023 Covid-19 Vaccine () Covid-19 Vaccine () [facility] Comment on above: Postponed from 10/21 (Declined at this time) Start: 12-29-2023 Hepatitis B Vaccine (1 of 3 - 19+ 3-dose series) Hepatitis B Vaccine (1 of 3 - 19+ 3-dose series) [facility] Comment on above: Postponed from 10/12 (Declined at this time) Start: 12-29-2023 Hepatitis B Vaccine (1 of 3 - 3-dose series) Hepatitis B Vaccine (1 of 3 - 3-dose series) [facility] Comment on above: Postponed from 10/12 (Declined at this time) Start: 12-29-2023 HPV Testing HPV Testing [facility] Comment on above: Postponed from 10/12 (Declined at this time) Start: 12-29-2023 Pap Testing Pap Testing [facility] Comment on above: Postponed from 11/24 (Declined at this time) Start: 12-29-2023 Pneumococcal vaccination [facility] Comment on above: Postponed from 10/12 (Declined at this time) Start: 12-29-2023 Screening for malign ant neoplasm of cervix [facility] Comment on above: Postponed from 10/12 (Declined at this time) Postponed from 11/24 (Declined at this time) Postponed from 11/24 (Declined at this time) Start: 12-01-2023 Annual PCP Team Carrier Packer karlee Disease Visit Annual PCP Team Chronic Disease Visit [facility] Start: 10-22-2023 Covid-19 Vaccine () Covid-19 Vaccine () [facility] Start: 10-22-2023 Influenza vaccination Influenza Vacc ine (#1) [facility] Start: 08-30-2023 ANNUAL PCP TEAM MOBILE SECURITY ARCHITECT KARLEE DISEASE VISIT ANNUAL PCP TEAM CHRONIC DISEASE VISIT [facility] Start: 08-16-2023 End: 08-16-2023 Patient encounter procedure 08/16/2023 10:00 AM EDT Office Visit [facility] Medicine [place] [address] [place] [address] Aditi Severino AUTOMATION CONTROLS ENGINEER.SPORTS PHYSIOTHERAPIST [address] [facility] [place] [address] 2 month follow up weight [facility] [place] Comment on above: [facility] Start: 08-10-2023 End: 08-10-2023 Patient encounter procedure 08/10/2023 2:15 PM EDT Office Visit Pulmonary Medicine [address] [place] [address] Jaimie Chen MD [address] [place] [address] 9 month follow up Pulmonary Medicine Comment on above: 9 month follow up Start: 07-14-2023 End: 07-14-2023 Patient encounter procedure 07/14/2023 8:00 AM EDT Office Visit Internal Medicine [place] [address] [facility], [place] [address] Piage Ayala APRN.SPORTS PHYSIOTHERAPIST [address] [place] [address] 2 month follow up weight [facility] [place] Comment on above: [facility] Start: 05-03-2023 End: 08-02-2023 Comprehensive metabolic 2000 panel - Serum or Plasma COMP METABOLIC PANEL Lab Routine Class 2 obesity with body mass index (BMI) of 38.0 to 38.9 in adult, unspecified obesity type, unspecified whether serious comorbidity present Expected: 05/03/2023, Expires: 08/02/2023 [facility] Work Phone: Comment on above: Expected: 05/03/2023 , Expires: 08/02/2023 Start: 05-03-2023 End: 08-02-2023 Hemoglobin A1c in Blood HGB A1C Lab Routine Class 2 obesity with body mass index (BMI) of 38.0 to 38.9 in adult, unspecified obesity type, unspecified whether serious comorbidity present Expected: 05/03/2023, Expires: 08/02/2023 [facility] Work Phone: Comment on above: Expected: 05/03/2023 , Expires: 08/02/2023 Start: 05-03-2023 End: 08-02-2023 Thyrotropin [Units/volume] in Serum or Plasma TSH BLD Lab Routine Class 2 obesity with body mass index (BMI) of 38.0 to 38.9 in adult, unspecified obesity type, unspecified whether serious comorbidity present Expected: 05/03/2023, Expires: 08/02/2023 [facility] Work Phone: Comment on above: Expected: 05/03/2023 , Expires: 08/02/2023 Start: 05-03-2023 End: 08-02-2023 Thyroxine (T4) free [Mass/volume] in Serum or Plasma T4 FREE/FREE THYROX Lab Routine Class 2 obesity with body mass index (BMI) of 38.0 to 38.9 in adult, unspecified obesity type, unspecified whether serious comorbidity present Expected: 05/03/2023, Expires: 08/02/2023 [facility] Work Phone: Comment on above: Expected: 05/03/2023 , Expires: 08/02/2023 Start: 03-22-2023 [facility] Start: 02-20-2023 Behavioral Health Screening Behavioral Health Screening [facility] Start: 02-20-2023 Depression Assessment Depression Ass essment [facility] Start: 11-24-2022 PAP TESTING PAP TESTING [facility] Start: 10-21-2022 Covid-19 Vaccine () Covid-19 Vaccine () [facility] Start: 10-21-2022 Influenza vaccination [facility] Start: 09-23-2022 End: 11-23-2022 ALGN NUNAM IQUA GRP [facility] Work Phone: Comment on above: Expected: 09/23/2022 , Expires: 11/23/2022 Start: 09-23-2022 End: 11-23-2022 IgE [Units/volume] in Serum or Plasma [facility] Work Phone: Comment on above: Expected: 09/23/2022 , Expires: 11/23/2022 Start: 09-13-2022 End: 11-13-2022 CBC W Auto Differential panel - Blood CBC + DIFF Lab Routine Anemia, unspecified type Expected: 09/13/2022 (Approximate), Expires: 11/13/2022 [facility] Work Phone: Comment on above: Expected: 09/13/2022 (Approximate), Expires: 11/13/2022 Start: 09-13-2022 End: 11-13-2022 Ferritin [Mass/volume] in Serum or Plasma FERRITIN BLD Lab Routine Anemia, unspecified type Expected: 09/13/2022 (Approximate), Expires: 11/13/2022 [facility] Work Phone: Comment on above: Expected: 09/13/2022 (Approximate), Expires: 11/13/2022 Start: 09-13-2022 End: 11-13-2022 Iron and Iron binding capacity panel - Serum or Plasma IRON + TIBC Lab Routine Anemia, unspecified type Expected: 09/13/2022 (Approximate), Expires: 11/13/2022 [facility] Work Phone: Comment on above: Expected: 09/13/2022 (Approximate), Expires: 11/13/2022 Start: 08-29-2022 End: 10-29-2022 Bacteria identified in Throat by Culture [facility] Work Phone: Comment on above: Expected: 08/29/2022 , Expires: 10/29/2022 Start: 08-02-2022 End: 10-02-2022 CBC panel - Blood by Automated count CBC Lab Routine Anemia, unspecified type Expected: 08/02/2022, Expires: 10/02/2022 [facility] Work Phone: Comment on above: Expected: 08/02/2022 , Expires: 10/02/2022 Start: 02-20-2022 DEPRESSION ASSESSMENT DEPRESSION ASS ESSMENT [facility] Start: 02-11-2022 COVID-19 VACCINE (3 - Booster for Pfizer series) COVID-19 VACCINE (3 - Booster for Pfizer series) [facility] Start: 02-11-2022 COVID-19 VACCINE (3 - Pfizer series) COVID-19 VACCINE (3 - Pfizer series) [facility] Start: 11-24-2020 Screening for malign ant neoplasm of cervix Cervical Cancer Screening [facility] Start: 2018 HPV TESTING HPV TESTING [facility] Start: 08-08-2016 End: 08-08-2016 Appointment Appointment [facility] Work Phone: Start: 10-13-2007 Hepatitis B Vaccine (1 of 3 - 19+ 3-dose series) Hepatitis B Vaccine (1 of 3 - 19+ 3-dose series) [facility] Start: 2006 Anxiety Screening Anxiety Screening [facility] Start: 2006 Depression Screening Depression Scre ening [facility] Start: 1994 PNEUMOCOCCAL (1 - PCV) PNEUMOCOCCAL (1 - PCV) [facility] Start: 1994 Pneumococcal vaccination Pneum ococcal Vaccine (1 - PCV) [facility] Start: 1988 HEPATITIS B (1 of 3 - 3-dose series) HEPATITIS B (1 of 3 - 3-dose series) [facility] Start: 1988 Hepatitis B Vaccine (1 of 3 - 3-dose series) Hepatitis B Vaccine (1 of 3 - 3-dose series) [facility] End: 10-23-2023 NITRIC OXIDE, EXHALED NITRIC OXIDE, EXHALED PFT Routine Mild persistent asthma without complication 1 Occurrences starting 09/23/2022 until 10/23/2023 [facility] Work Phone: Comment on above: 1 Occurrences starti ng 09/23/2022 until 10/23/2023 Patient Education [facility] Work Phone: Patient referral [facility] Work Phone: RAPID STREP TEST B/O RAPID STREP TEST B/O Lab Routine Recurrent streptococcal pharyngitis Sore throat Ordered: 08/29/2022 [facility] Work Phone: Comment on above: Ordered: 08/29/2022 SPIROMETRY WITH DILA TOR IF OBSTRUCTED SPIROMETRY WITH DILATOR IF OBSTRUCTED PFT Routine Subacute cough 09/15/2022 7:35 AM EDT [facility] Work Phone: Streptococcus pyogen es antigen assay Group A Streptococcus Rapid Screen [facility] Work Phone: [facility] Immunizations Immunization Date Immunization Notes Care Provider Johnny blanco 12-28-2022 influenza, injectabl e, quadrivalent, contains preservative Paige Ayala APRN.CNP Work Phone: [facility] 12-28-2022 influenza virus vaccine, unspecified formulation Gonzales Goddard MD Work Phone: [facility] 01-25-2018 influenza, injectabl e, quadrivalent, preservative free [facility] 01-25-2018 influenza, seasonal, injectable [facility] 01-25-2018 influenza, seasonal, injectable, preservative free Gonzales Goddard MD Work Phone: [facility] Work Phone: 01-25-2018 influenza virus vaccine, unspecified formulation Pulm [facility] Work Phone: [facility] 08-29-2017 diphtheria, tetanus toxoids and acellular pertussis vaccine, unspecified formulation Gonzales Goddard MD Work Phone: [facility] Work Phone: 08-29-2017 tetanus toxoid, redu nu diphtheria toxoid, and acellular pertussis vaccine, adsorbed Gonzales Goddard MD Work Phone: [facility] Work Phone: 05-12-2016 tetanus toxoid, redu nu diphtheria toxoid, and acellular pertussis vaccine, adsorbed Gonzales Goddard MD Work Phone: [facility] 04-27-2016 RHO(D) immune globul in- IV or IM Gonzales Goddard MD Work Phone: [facility] Work Phone: 04-27-2016 tetanus toxoid, redu nu diphtheria toxoid, and acellular pertussis vaccine, adsorbed Gonzales Goddard MD Work Phone: [facility] Work Phone: 03-16-2016 tetanus toxoid, redu nu diphtheria toxoid, and acellular pertussis vaccine, adsorbed Gonzales Goddard MD Work Phone: [facility] Work Phone: 12-22-2015 Influenza virus vaccine [facility] 12-22-2015 influenza, seasonal, injectable, preservative free Gonzales Goddard MD Work Phone: [facility] Work Phone: 02-24-2015 RHO(D) immune globul in- IV or IM Gonzales Goddard MD Work Phone: [facility] Work Phone: 02-24-2015 tetanus toxoid, redu nu diphtheria toxoid, and acellular pertussis vaccine, adsorbed Gonzales Goddard MD Work Phone: [facility] 11-28-2014 influenza, injectabl e, quadrivalent, contains preservative Gonzales Goddard MD Work Phone: [facility] 06-11-2001 measles, mumps and rubella virus vaccine Gonzales Goddard MD Work Phone: [facility] Work Phone: 11-23-1993 diphtheria, tetanus toxoids and acellular pertussis vaccine Gonzales Goddard MD Work Phone: [facility] Work Phone: 11-23-1993 poliovirus vaccine, inactivated Gonzales Goddard MD Work Phone: [facility] Work Phone: 05-22-1990 diphtheria, tetanus toxoids and acellular pertussis vaccine Gonzales Goddard MD Work Phone: [facility] Work Phone: 05-22-1990 poliovirus vaccine, inactivated Gonzales Goddard MD Work Phone: [facility] Work Phone: 02-01-1990 haemophilus influenz ae type b vaccine, HbOC conjugate Gonzales Goddard MD Work Phone: [facility] Work Phone: 02-01-1990 measles, mumps and rubella virus vaccine Gonzales Goddard MD Work Phone: [facility] Work Phone: 08-17-1989 tuberculin skin test ; purified protein derivative solution, intradermal Gonzales Goddard MD Work Phone: [facility] 06-16-1989 diphtheria, tetanus toxoids and acellular pertussis vaccine Gonzales Goddard MD Work Phone: [facility] Work Phone: 05-16-1989 diphtheria, tetanus toxoids and acellular pertussis vaccine Gonzales Goddard MD Work Phone: [facility] Work Phone: 05-16-1989 poliovirus vaccine, inactivated Gonzales Goddard MD Work Phone: [facility] Work Phone: 1988 diphtheria, tetanus toxoids and acellular pertussis vaccine Gonzales Goddard MD Work Phone: [facility] Work Phone: 1988 poliovirus vaccine, inactivated Gonzales Goddard MD Work Phone: [facility] Work Phone: Payers Date Payer Category Payer Self-pay [id number] 2024 Unknown [id number] 2022 Unknown [id number] 02 [id number] 2014 Medicaid [id number] 1988 Unknown [id number] Unknown [id number] Unknown [id number] Social History Date Type Detail Facility Start: 05-31-2022 End: 09-23-2022 Tobacco smoking status FLIS Ex-smoker [facility] Start: 05-21-2010 End: 05-21-2014 History of tobacco use Current smoker [facility] Start: 05-21-2010 End: 05-21-2014 History of tobacco use Cigarette Smoker [facility] Start: 05-31-2022 End: 09-23-2022 Tobacco use and exposure Smokeless tobacco non-user [facility] Start: 11-11-2020 End: 07-29-2022 Alcohol intake Current drinker of alcohol (finding) [facility] Start: 07-29-2022 History SDOH Alcohol Frequency 1 [facility] Start: 07-29-2022 History SDOH Alcohol Std Drinks 0 [facility] Start: 07-29-2022 History SDOH Social Connections Phone 5 [facility] Start: 07-29-2022 History SDOH Social Connections Membership 2 [facility] Start: 07-29-2022 History SDOH Social Connections Living 7 [facility] Start: 07-29-2022 History SDOH Physica l Activity DPW 3 [facility] Start: 07-29-2022 History SDOH Physica l Activity MPS 10 [facility] Start: 11-11-2016 End: 05-31-2022 Tobacco Comment vaps while at work [facility] Start: 04-18-2018 [facility] Start: 1990 Sex Assigned At Not on file [facility] Start: 08-08-2022 End: 03-22-2023 Tobacco smoking status NHIS Unknown if ever smoked [facility] Start: 03-07-2019 Rare [facility] Start: 03-07-2019 None [facility] Start: 07-25-2019 With Family [facility] Start: 05-13-2020 Vapor [facility] Start: 1990 Sex Assigned At Female [facility] Start: 07-29-2022 End: 08-10-2023 History of Social function [facility] Start: 07-29-2022 End: 08-10-2023 Social connection and isolation panel [facility] Do you belong to any clubs or organizations such as mandaen groups, unions, fraternal or athletic groups, or school groups? No [facility] Are you now , , , , never or living with a partner? Never [facility] How often to you hav e a drink containing alcohol? Never [facility] How many standard drinks containing alcohol do you have on a typical day? Patient does not drink [facility] Do you feel stress - tense, restless, nervous, or anxious, or unable to sleep at night because your mind is troubled all the time - these days [OSQ] Not at all [facility] (I/We) worried usama espinoza (my/our) food would run out before (I/we) got money to buy more. Never true [facility] Tobacco Nicotine Use: va pe. Exposure to Tobacco Smoke quit 2 months ago. [facility] Sex Assigned At Sex [facility] Start: 04-04-2023 End: 08-10-2023 Alcohol intake Ex-drinker (finding) [facility] Start: 2020 End: 11-11-2020 Exposure to SARS-CoV-2 (event) Not sure [facility] NEGATED: Highlighted row [facility] Medical Equipment Procedure Code Equipment Code Equipment Origin al Text Equipment Identifier Dates Repair, hernia, umbilical, using mesh MESH,VENTLEX ST MED 6.4CM FDA Start: 11-21-2018 Repair, hernia, umbilical, using mesh MESH,VENTLEX ST MED 6.4CM FDA Start: 11-21-2018 Repair, hernia, umbilical, using mesh MESH,VENTLEX ST MED 6.4CM FDA Start: 11-21-2018 Repair, hernia, umbilical, using mesh MESH,VENTLEX ST MED 6.4CM FDA Start: 11-21-2018 Repair, hernia, umbilical, using mesh MESH,VENTLEX ST MED 6.4CM FDA Start: 11-21-2018 Repair, hernia, umbilical, using mesh MESH,VENTLEX ST MED 6.4CM FDA Start: 11-21-2018 Functional Status Date Assessment Result Facility 09-21-2022 Functional Status [facility] Functional Status Standard Safet y ID band on, Allergy Band on, Call device within reach, Bed in low position, Wheels locked [facility] 09-11-2014 Are you deaf, or do you have serious difficulty hearing No 09/11/2014 9:07 AM Bere Reyna, ELIU No [facility] 09-11-2014 Are you blind, or do you have serious difficulty seeing, even when wearing glasses No 09/11/2014 9:07 AM Bere Reyna, ELIU No [facility] 09-11-2014 Do you have serious difficulty walking or climbing stairs No 09/11/2014 9:07 AM Bere Reyna, ELIU No [facility] 09-11-2014 Do you have difficul ty dressing or bathing No 09/11/2014 9:07 AM Bere Reyna, ELIU No [facility] 09-11-2014 Because of a physica l, mental, or emotional condition, do you have difficulty doing errands alone such as visiting a physician's office or shopping No 09/11/2014 9:07 AM Bere Reyna, ELIU No [facility] Mental Status Date Assessment Result Facility 09-21-2022 Mental Status Orientation Oriented x 4 [facility] 09-21-2022 Mental Status [facility] 08-08-2022 Cognitive function Level Of Cons ciousness Awake;Alert;Appropriate;Fol lows Commands [facility] Work Phone: 09-11-2014 Because of a physica l, mental, or emotional condition, do you have serious difficulty concentrating, remembering, or making decisions No 09/11/2014 9:07 AM EDT Bere Serrato RN No [facility] Clinical Notes 05-24-2016 to 04-23-2024 Terence Wallace PA - 04/23/2024 10:23 AM ESTTelephone Encounter - Linda Burkett LPN - 10/19/2023 3:06 PM EDTTelephone Encounter - Linda Burkett LPN - 10/19/2023 3:06 PM EDT Note Date & Type Note Facility 04-23-2024 Note HNO ID: [id number] Author: TERENCE WALLACE PA Service: ? Author Type: Physician Flatbed Owner Operator Type: Progress Notes Filed: 04/23/2024 10:35 Note Text: [facility] Subjective Rowena Jaquez is a 33 year old female. HPI 33-year-old female presents for cough, congestion, headache, ear pain, fever, sore throat x 3 days. Patient states she started getting sick a couple days ago with cough congestion. She now has right ear pain. She felt feverish yesterday, did not actually take her temperature. She has had sore throat. No vomiting or diarrhea. Still eating and drinking. No other complaint PAST MEDICAL HISTORY Diagnosis Date Allergies Carpal tunnel syndrome of right wrist 08/01/2018 [...] Bilateral 2017 ALLERGIES Naproxen and Penicillins MEDICATIONS methylphenidate (RITALIN) 10 mg tablet Take 1 tablet by mouth two times a day for 14 days. fluticasone (FLONASE ALLERGY RELIEF) 50 mcg/actuation nasal spray Use 1 [place] in each nostril once daily. mometasone-formoterol (DULERA) 200-5 mcg/actuation inhaler Inhale 2 Puffs as instructed two times a day. VENTOLIN HFA 90 mcg/actuation inhaler INHALE 2 PUFFS EVERY 4 TO 6 HOURS NEEDED FAMILY HISTORY Problem Relation Age of Onset Seizures Father Arthritis Maternal Grandmother Thyroid Maternal Grandmother Diabetes Maternal Grandfather Heart Maternal Grandfather Asthma No Family History Social History Tobacco Use Smoking status: Former Current packs/day: 0.00 Average packs/day: 1 pack/day for 4.0 years (4.0 ttl pk-yrs) Types: Cigarettes Start date: 05/2010 Quit date: 05/2014 Years since quittin.9 Smokeless tobacco: Never Tobacco comments: vaps while at work Vaping Use Vaping status: Former Substances: Nicotine, Flavoring Devices: Refillable tank Substance Use Topics Alcohol use: Not Currently Comment: occasionally Drug use: Not Currently Types: Crystal Meth, Heroin Review of Systems Constitutional: Positive for fever. Negative for chills. HENT: Positive for congestion, ear pain and sore throat. Negative for facial swelling. Respiratory: Positive for cough. Negative for shortness of breath. Cardiovascular: Negative for chest pain. Gastrointestinal: Negative for diarrhea and vomiting. Objective BP 126/72 Pulse 102 Temp 37.3 ?C (99.2 ?F) Resp 18 Wt 99.9 kg (220 lb 3.8 oz) LMP 02/28/2023 (Approximate) SpO2 97% BMI 39.01 kg/m? Physical Exam Vitals and nursing note reviewed. Constitutional: General: She is not in acute distress. Appearance: Normal appearance. She is not toxic-appearing. HENT: Right Ear: Tympanic membrane and ear canal normal. Left Ear: Tympanic membrane and ear canal normal. Nose: Congestion present. Mouth/Throat: Mouth: Mucous membranes are moist. Pharynx: Posterior oropharyngeal erythema present. Eyes: Conjunctiva/sclera: Conjunctivae normal. Cardiovascular: Rate and Rhythm: Normal rate and regular rhythm. Pulmonary: Effort: Pulmonary effort is normal. Breath sounds: Normal breath sounds. No wheezing, rhonchi or rales. Skin: General: Skin is warm and dry. Neurological: Mental Status: She is alert. Assessment and Plan History and Record Review Systemic symptoms present included: Fever/chills per patient Differential Diagnoses - uri is more likely for the following reason(s): suggested by HANDP - strep is less likely for the following reason(s): laboratory studies not suggestive Additional Tests or Interventions The following testing was considered but ultimately not selected after discussion with patient/family: viral swab, declines Disposition The patient was discharged. OTC Medications were advised: Flonase, cough and cold meds Procedures ASSESSMENT/PLAN: 1. Sore throat - ICD9: 462, ICD10: J02.9 (primary diagnosis) - suspect viral - Group A strep molecular testing negative - Discussed supportive care treatment with fluids, rest and analgesia. - The patient may also use warm salt water gargles, throat lozenges and/or OTC throat spray as needed. - STREP A MOLECULAR (POC) 2. URI, acute - ICD9: 465.9, ICD10: J06.9 - Discussed viral etiology and rationale for treatment. - Symptomatic treatment with prn analgesia - Supportive care with fluids and rest - The patient may also use OTC cough and cold meds as needed. Diagnosis and treatment plan were discussed and questions were answered to the patient's sat (more content not included)... [facility] 04-23-2024 History of Presen t illness Narrative [facility] Subjective Rowena Jaquez is a 33 year old female. HPI 33-year-old female presents for cough, congestion, headache, ear pain, fever, sore throat x 3 days. Patient states she started getting sick a couple days ago with cough congestion. She now has right ear pain. She felt feverish yesterday, did not actually take her temperature. She has had sore throat. No vomiting or diarrhea. Still eating and drinking. No other complaint PAST MEDICAL HISTORY Diagnosis Date Allergies Carpal tunnel syndrome of right wrist 08/01/2018 [...] Bilateral 2017 ALLERGIES Naproxen and Penicillins MEDICATIONS methylphenidate (RITALIN) 10 mg tablet Take 1 tablet by mouth two times a day for 14 days. fluticasone (FLONASE ALLERGY RELIEF) 50 mcg/actuation nasal spray Use 1 [place] in each nostril once daily. mometasone-formoterol (DULERA) 200-5 mcg/actuation inhaler Inhale 2 Puffs as instructed two times a day. VENTOLIN HFA 90 mcg/actuation inhaler INHALE 2 PUFFS EVERY 4 TO 6 HOURS NEEDED FAMILY HISTORY Problem Relation Age of Onset Seizures Father Arthritis Maternal Grandmother Thyroid Maternal Grandmother Diabetes Maternal Grandfather Heart Maternal Grandfather Asthma No Family History Social History Tobacco Use Smoking status: Former Current packs/day: 0.00 Average packs/day: 1 pack/day for 4.0 years (4.0 ttl pk-yrs) Types: Cigarettes Start date: 05/2010 Quit date: 05/2014 Years since quittin.9 Smokeless tobacco: Never Tobacco comments: vaps while at work Vaping Use Vaping status: Former Substances: Nicotine, Flavoring Devices: Refillable tank Substance Use Topics Alcohol use: Not Currently Comment: occasionally Drug use: Not Currently Types: Crystal Meth, Heroin Review of Systems Constitutional: Positive for fever. Negative for chills. HENT: Positive for congestion, ear pain and sore throat. Negative for facial swelling. Respiratory: Positive for cough. Negative for shortness of breath. Cardiovascular: Negative for chest pain. Gastrointestinal: Negative for diarrhea and vomiting. Objective BP 126/72 Pulse 102 Temp 37.3 C (99.2 F) Resp 18 Wt 99.9 kg (220 lb 3.8 oz) LMP 02/28/2023 (Approximate) SpO2 97% BMI 39.01 kg/m Physical Exam Vitals and nursing note reviewed. Constitutional: General: She is not in acute distress. Appearance: Normal appearance. She is not toxic-appearing. HENT: Right Ear: Tympanic membrane and ear canal normal. Left Ear: Tympanic membrane and ear canal normal. Nose: Congestion present. Mouth/Throat: Mouth: Mucous membranes are moist. Pharynx: Posterior oropharyngeal erythema present. Eyes: Conjunctiva/sclera: Conjunctivae normal. Cardiovascular: Rate and Rhythm: Normal rate and regular rhythm. Pulmonary: Effort: Pulmonary effort is normal. Breath sounds: Normal breath sounds. No wheezing, rhonchi or rales. Skin: General: Skin is warm and dry. Neurological: Mental Status: She is alert. Assessment and Plan History and Record Review Systemic symptoms present included: Fever/chills per patient Differential Diagnoses - uri is more likely for the following reason(s): suggested by H&P - strep is less likely for the following reason(s): laboratory studies not suggestive Additional Tests or Interventions The following testing was considered but ultimately not selected after discussion with patient/family: viral swab, declines Disposition The patient was discharged. OTC Medications were advised: Flonase, cough and cold meds Procedures ASSESSMENT/PLAN: 1. Sore throat - ICD9: 462, ICD10: J02.9 (primary diagnosis) - suspect viral - Group A strep molecular testing negative - Discussed supportive care treatment with fluids, rest and analgesia. - The patient may also use warm salt water gargles, throat lozenges and/or OTC throat spray as needed. - STREP A MOLECULAR (POC) 2. URI, acute - ICD9: 465.9, ICD10: J06.9 - Discussed viral etiology and rationale for treatment. - Symptomatic treatment with prn analgesia - Supportive care with fluids and rest - The patient may also use OTC cough and cold meds as needed. Diagnosis and treatment plan were discussed and questions were answered to the patient's satisfaction. Pt acknowledged understanding of concepts and follow up plan. Specific signs and symptoms that would indicate the need for higher level of care were discussed in detail warranting prompt ER evaluation. JAIRON Dodge documented in this encounter [facility] 10-19-2023 Telephone encounter Note Spoke with pt and information listed below given. Pt verbalizes understanding. Linda Burkett LPN [facility] 10-19-2023 Miscellaneous Notes Spoke with pt and information listed below given. Pt verbalizes understanding. Linda Burkett LPN I can give her a few weeks worth while she is getting insurance figured out, but no further until seen. Thank you Paige Ayala APRN.MARILYNN Pt checking on refill and given provider's message below. Pt does not understand. Was seen in [facility] office on 05-15-23. It's been 5 mths since that appt. Reports she found out she lost her insurance and cannot schedule appt until she figures out why she doesn't have insurance. Advised patient she can contact our financial counselor for assistance for financial help. Pt states she has been calling [facility] to try and get insurance back, but will keep financial counselor in mind. Reports she hasn't taken her medication in 2 days, has saved 4 pills to help with withdrawals from the ritalin. Pt asking if Dr. Goddard can refill the ritalin? Please phone pt with reply. Left a message for pt to call the office and ask to speak to a nurse. Linda Burkett LPN Needs appointment prior to refill Paige Ayala APRN.MARILYNN Prescription Refill Information The patient has been identified by name and date of : Yes Caregiver verified no other encounters exist for this prescription request: Yes Caregiver confirmed with patient/requestor that no other refills are due, in the near future, with this provider at this time: Yes The last office visit in the department: 05-15-23 Does the patient have a future office visit with this provider/department: No Requested Prescriptions Pending Prescriptions Disp Refills methylphenidate (RITALIN) 10 mg tablet 60 tablet 0 Sig: Take 1 tablet by mouth two times a day for 30 days. Because patient is paying out of pocket, Patient is asking for 60. Kathleen Osborne 2023 11:17 AM documented in this encounter [facility] 10-19-2023 Telephone encounter Note I can give her a few weeks worth while she is getting insurance figured out, but no further until seen. Thank you Paige Ayala APRN.CNP [facility] 10-18-2023 Telephone encounter Note Pt checking on refill and given provider's message below. Pt does not understand. Was seen in [facility] office on 05-15-23. It's been 5 mths since that appt. Reports she found out she lost her insurance and cannot schedule appt until she figures out why she doesn't have insurance. Advised patient she can contact our financial counselor for assistance for financial help. Pt states [facility] and get [facility], but will keep financial counselor in mind. Reports she hasn't taken her medication in 2 days, has saved 4 pills to help with withdrawals from the ritalin. Pt asking if Dr. Goddard can refill the ritalin? Please phone pt with reply. [facility] 10-18-2023 Telephone encounter Note Left a message for pt to call the office and ask to speak to a nurse. Linda Burkett LPN [facility] 2023 Telephone encounter Note Needs appointment prior to refill Paige Ayala APRN.CNP [facility] 2023 Telephone encounter Note Prescription Refill Information The patient has been identified by name and date of : Yes Caregiver verified no other encounters exist for this prescription request: Yes Caregiver confirmed with patient/requestor that no other refills are due, in the near future, with this provider at this time: Yes The last office visit in the department: 05-15-23 Does the patient have a future office visit with this provider/department: No Requested Prescriptions Pending Prescriptions Disp Refills methylphenidate (RITALIN) 10 mg tablet 60 tablet 0 Sig: Take 1 tablet by mouth two times a day for 30 days. Because patient is paying out of pocket, Patient is asking for 60. Kathleen Osborne 2023 11:17 AM [facility] 08-10-2023 History of Presen t illness Narrative Images from the original note were not included. . [facility] Note Patient name: Rowena Jaquez PCP: Gonzales Goddard MD CC: Follow-up asthma HPI: Rowena Jaquez 32 year old female former minimal smoker, former vaping, with PMH significant for PCOS, mild asthma, seasonal and environmental allergies presenting for routine follow-up visit. Current inhaled therapy consists of Dulera, with as needed albuterol. She was on Singulair and OTC antihistamine but stopped both medications due to ineffectiveness. Her strongest allergy is due to dog dander and she has persistent allergen exposure due to her dog at home. She is having significant allergy symptoms with itchy eyes, matting in the morning, tearing and swelling. Nasal congestion but no headaches. Despite her allergy symptoms, she has not had a flare of her asthma symptoms. She is compliant with use of her Dulera. Occasional need for her albuterol. No significant nocturnal awakenings however she is pending she was pending in lab evaluation for sleep apnea. DATA: Oral Exhaled Nitric Oxide measurement (Previous Encounters) Test Date Oral Exhaled Nitric Oxide (ppb) 02/06/2023 33.0 11/09/2022 36.0 (A) 09/23/2022 71.0 (A) Labs: omponent Ref Range & Units 10 mo ago Walker Tree IgE <0.35 kU/l <0.35 [place] Class Class 0 Class 0 Carlos Grass IgE <0.35 kU/l 8.34 High Carlos Grass Class Class 0 Class 3 Abnormal Michela Grass IgE <0.35 kU/l 15.20 High Michela Grass Class Class 0 Class 3 Abnormal Short Ragweed IgE <0.35 kU/l 2.91 High Short Ragweed Class Class 0 Class 2 Abnormal [place] IgE <0.35 kU/l <0.35 [place] Class Class 0 Class 0 Cat Dander IgE <0.35 kU/l 13.90 High Cat Dander Class Class 0 Class 3 Abnormal Dog Dander IgE <0.35 kU/l 52.40 High Dog Dander Class Class 0 Class 5 Abnormal Cladosporium herbarum IgE <0.35 kU/l <0.35 Cladosporium herbarum Class Class 0 Class 0 Alternaria tenuis IgE <0.35 kU/l <0.35 Alternaria tenuis Class Class 0 Class 0 Dermatophagoides Farinae IgE <0.35 kU/l 1.86 High Dermatophagoides Farinae Class Class 0 Class 2 Abnormal PAST MEDICAL HISTORY Diagnosis Date Carpal tunnel syndrome of right wrist 08/01/2018 Mild per EMG study fracture small finger right hand Infertility, female attempting since age 16 Mild persistent asthma without complication 09/23/2022 PCO (polycystic ovaries) 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 FLUoxetine (PROZAC) 10 mg capsule Take 1 capsule by mouth once daily. VENTOLIN HFA 90 mcg/actuation inhaler INHALE 2 PUFFS EVERY 4 TO 6 HOURS NEEDED mometasone-formoterol (DULERA) 200-5 mcg/actuation inhaler Inhale 2 Puffs as instructed two times a day. montelukast (SINGULAIR) 10 mg tablet Take 1 tablet by mouth daily at bedtime. Social History Tobacco Use Smoking status: Former Packs/day: 1.00 Years: 4.00 Additional pack years: 0.00 Total pack years: 4.00 Types: Cigarettes Quit date: 05/2014 Years since quittin.2 Smokeless tobacco: Never Tobacco comments: vaps while at work Vaping Use Vaping Use: Former Substances: Nicotine, Flavoring Devices: Refillable tank Substance Use Topics Alcohol use: Not Currently Comment: occasionally Drug use: Not Currently Types: Crystal Meth, Heroin FAMILY HISTORY Problem Relation Age of Onset [...] fevers, chills, nightsweats, unintended weight loss HEENT: Positive nasal congestion/sinus symptoms, problematic allergy problems. EYES: See HPI CARDIOVASCULAR: No chest pain, dyspnea, palpitations, edema. PULM: See HPI INTEGUMENTARY: No new skin changes, rashes PHYSICAL EXAMINATION: LMP 02/28/2023 BP 108/70, pulse 87, RR 14, SpO2 98% on room air, weight 203 pounds General Appearance: Obese female, NAD. Skin: Skin color, texture, turgor normal, no suspicious rashes or lesions. Head: Normocephalic, no masses, lesions, tenderness or abnormalities. Eyes: Sclera, conjunctiva normal. Oropharynx: Poor dentition, no oral lesions or thrush. Neck: No masses or adenopathy Lungs: Not labored, normal to percussion, no wheezes or crackles. Heart: Regular rate and rhythm, no murmurs or gallops. Extremities: No edema or clubbing. Assessment/Plan: 1. Mild persistent asthma, uncomplicated -Asthma symptoms currently controlled with Dulera -Refilled prescriptions for Dulera and Ventolin 2. Environmental and seasonal allergies -Patient requesting referral to allergy for possible immunotherapy -Sent referral to Dr. Dale Guzman -She would do better with allergen avoidance 3. Obesity, class 3 -BMI 40 -Weight loss advised as obesity portends poor control of asthma Jaimie Chen MD [facility] documented in this encounter [facility] 08-10-2023 Note HNO ID: [id number] Author: JAIMIE CHEN MD Service: ? Author Type: Physician Type: Progress Notes Filed: 08/10/2023 16:45 Note Text: . [facility] Patient name: Rowena Jaquez PCP: Gonzales Goddard MD CC: Follow-up asthma HPI: Rowena Jaquez 32 year old female former minimal smoker, former vaping, with PMH significant for PCOS, mild asthma, seasonal and environmental allergies presenting for routine follow-up visit. Current inhaled therapy consists of Dulera, with as needed albuterol. She was on Singulair and OTC antihistamine but stopped both medications due to ineffectiveness. Her strongest allergy is due to dog dander and she has persistent allergen exposure due to her dog at home. She is having significant allergy symptoms with itchy eyes, matting in the morning, tearing and swelling. Nasal congestion but no headaches. Despite her allergy symptoms, she has not had a flare of her asthma symptoms. She is compliant with use of her Dulera. Occasional need for her albuterol. No significant nocturnal awakenings however she is pending she was pending in lab evaluation for sleep apnea. DATA: Oral Exhaled Nitric Oxide measurement (Previous Encounters) Test Date Oral Exhaled Nitric Oxide (ppb) 02/06/2023 33.0 11/09/2022 36.0 (A) 09/23/2022 71.0 (A) Labs: omponent Ref Range AND Units 10 mo ago [place] IgE <0.35 kU/l <0.35 [place] Class Class 0 Class 0 Carlos Grass IgE <0.35 kU/l 8.34 High Carlos Grass Class Class 0 Class 3 Abnormal Michela Grass IgE <0.35 kU/l 15.20 High Michela Grass Class Class 0 Class 3 Abnormal Short Ragweed IgE <0.35 kU/l 2.91 High Short Ragweed Class Class 0 Class 2 Abnormal [place] Quarters IgE <0.35 kU/l <0.35 [place] Class Class 0 Class 0 Cat Dander IgE <0.35 kU/l 13.90 High Cat Dander Class Class 0 Class 3 Abnormal Dog Dander IgE <0.35 kU/l 52.40 High Dog Dander Class Class 0 Class 5 Abnormal Cladosporium herbarum IgE <0.35 kU/l <0.35 Cladosporium herbarum Class Class 0 Class 0 Alternaria tenuis IgE <0.35 kU/l <0.35 Alternaria tenuis Class Class 0 Class 0 Dermatophagoides Farinae IgE <0.35 kU/l 1.86 High Dermatophagoides Farinae Class Class 0 Class 2 Abnormal PAST MEDICAL HISTORY Diagnosis Date Carpal tunnel syndrome of right wrist 08/01/2018 Mild per EMG study fracture small finger right hand Infertility, female attempting since age 16 Mild persistent asthma without complication 09/23/2022 PCO (polycystic ovaries) 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 FLUoxetine (PROZAC) 10 mg capsule Take 1 capsule by mouth once daily. VENTOLIN HFA 90 mcg/actuation inhaler INHALE 2 PUFFS EVERY 4 TO 6 HOURS NEEDED mometasone-formoterol (DULERA) 200-5 mcg/actuation inhaler Inhale 2 Puffs as instructed two times a day. montelukast (SINGULAIR) 10 mg tablet Take 1 tablet by mouth daily at bedtime. Social History Tobacco Use Smoking status: Former Packs/day: 1.00 Years: 4.00 Additional pack years: 0.00 Total pack years: 4.00 Types: Cigarettes Quit date: 05/2014 Years since quittin.2 Smokeless tobacco: Never Tobacco comments: vaps while at work Vaping Use Vaping Use: Former Substances: Nicotine, Flavoring Devices: Refillable tank Substance Use Topics Alcohol use: Not Currently Comment: occasionally Drug use: Not Currently Types: Crystal Meth, Heroin FAMILY HISTORY Problem Relation Age of Onset [...] fevers, chills, nightsweats, unintended weight loss HEENT: Positive nasal congestion/sinus symptoms, problematic allergy problems. EYES: See HPI CARDIOVASCULAR: No chest pain, dyspnea, palpitations, edema. PULM: See HPI INTEGUMENTARY: No new skin changes, rashes PHYSICAL EXAMINATION: [facility] 02/28/2023 BP 108/70, pulse 87, RR 14, SpO2 98% on room air, weight 203 pounds General Appearance: Obese female, NAD. Skin: Skin color, texture, turgor normal, no suspicious rashes or lesions. Head: Normocephalic, no masses, lesions, tenderness or abnormalities. Eyes: Sclera, conjunctiva normal. Oropharynx: Poor dentition, no oral lesions or thrush. Neck: No masses or adenopathy Lung (more content not included)... [facility] 08-10-2023 Telephone encounter Note The following approved medication requests have been transmitted electronically. Requested Prescriptions Signed Prescriptions Disp Refills methylphenidate (RITALIN) 10 mg tablet 60 tablet 0 Sig: Take 1 tablet by mouth two times a day for 30 days. Authorizing Provider: AGA SIMS MD [facility] 08-10-2023 Miscellaneous Notes The following approved medication requests have been transmitted electronically. Requested Prescriptions Signed Prescriptions Disp Refills methylphenidate (RITALIN) 10 mg tablet 60 tablet 0 Sig: Take 1 tablet by mouth two times a day for 30 days. Authorizing Provider: AGA SIMS MD Prescription Refill Information The patient has been identified by name and date of : Yes Caregiver verified no other encounters exist for this prescription request: Yes Caregiver confirmed with patient/requestor that no other refills are due, in the near future, with this provider at this time: Yes The last office visit in the department: 05-15-23 Does the patient have a future office visit with this provider/department: Yes Requested Prescriptions Pending Prescriptions Disp Refills methylphenidate (RITALIN) 10 mg tablet 60 tablet 0 Sig: Take 1 tablet by mouth two times a day for 30 days. Thelma Garcia August 09, 2023 2:30 PM documented in this encounter [facility] 08-09-2023 Telephone encounter Note Prescription Refill Information The patient has been identified by name and date of : Yes Caregiver verified no other encounters exist for this prescription request: Yes Caregiver confirmed with patient/requestor that no other refills are due, in the near future, with this provider at this time: Yes The last office visit in the department: 05-15-23 Does the patient have a future office visit with this provider/department: Yes Requested Prescriptions Pending Prescriptions Disp Refills methylphenidate (RITALIN) 10 mg tablet 60 tablet 0 Sig: Take 1 tablet by mouth two times a day for 30 days. Thelma Garcia August 09, 2023 2:30 PM [facility] 06-28-2023 Telephone encounter Note PDMP website checked and validated. All prescriptions have been APPROPRIATELY filled. No suspicious activity was identified. 06/28/2023 by Paige Ayala APRN.CNP [facility] 06-28-2023 Miscellaneous Notes PDMP website checked and validated. All prescriptions have been APPROPRIATELY filled. No suspicious activity was identified. 06/28/2023 by Paige Ayala APRN.CNP Patient has been identified by name and date of : Yes, Provider Nitza Patient phones for refill(s): Requested Prescriptions Pending Prescriptions Disp Refills methylphenidate (RITALIN) 10 mg tablet 28 tablet 0 Sig: Take 1 tablet by mouth two times a day for 14 days. Date of last office visit in primary care: 05/15/2023 Date of next office visit in primary care: 07/14/2023 Please advise. Thank you. Hodan Garcia. documented in this encounter [facility] 06-26-2023 Telephone encounter Note Patient has been identified by name and date of : Yes, Provider Ganta Patient phones for refill(s): Requested Prescriptions Pending Prescriptions Disp Refills methylphenidate (RITALIN) 10 mg tablet 28 tablet 0 Sig: Take 1 tablet by mouth two times a day for 14 days. Date of last office visit in primary care: 05/15/2023 Date of next office visit in primary care: 07/14/2023 Please advise. Thank you. Hodan Garcia. [facility] 06-05-2023 Miscellaneous Notes Not sure why RX for just 14 days, but sent as given before. Paige will be back next week The following approved medication requests have been transmitted electronically. Requested Prescriptions Signed Prescriptions Disp Refills methylphenidate (RITALIN) 10 mg tablet 28 tablet 0 Sig: Take 1 tablet by mouth two times a day for 14 days. Authorizing Provider: AGA ISMS MD Patient has been identified by name and date of : Patient phones for refill(s): Requested Prescriptions Pending Prescriptions Disp Refills methylphenidate (RITALIN) 10 mg tablet 28 tablet 0 Sig: Take 1 tablet by mouth two times a day for 14 days. 1 tablet twice daily Date of last office visit in primary care: 05/15/2023 Date of next office visit in primary care: 07/14/2023 Please advise. Thank you. Nasrin Lopez RN. documented in this encounter [facility] 05-15-2023 Note HNO ID: [id number] Author: PAIGE AYALA APRN.SPORTS PHYSIOTHERAPIST Service: ? Author Type: Nurse Practitioner Type: Progress Notes Filed: 05/15/2023 09:30 Note Text: CC: Patient presents with: Recheck: 2 week follow up HPI Rowena Jaquez is a 32 year old female who presents today for weight. Typical diet: coffee with protein shake, no sugar or cream. Lunch : 1/2 cup of cottage cheese with mustard, raw vegetables, hard boiled egg, strawberry, salami. Dinner: 1/2 rotisserie chicken, salsa or marinara, cheese, sour cream, tortillas and steamed veggies. Has been doing this for a week and continuing to gain weight. Exercise: Starting a new job so has not had a chance to regularly start working out again. Blood work previously ordered has not been drawn yet. REVIEW OF SYSTEMS See HPI PAST MEDICAL [...] Take 1 capsule by mouth once daily. methylphenidate (RITALIN) 10 mg tablet Take 1 tablet by mouth two times a day for 14 days. 1 tablet twice daily VENTOLIN HFA 90 mcg/actuation inhaler INHALE 2 PUFFS EVERY 4 TO 6 HOURS NEEDED mometasone-formoterol (DULERA) 200-5 mcg/actuation inhaler Inhale 2 Puffs as instructed two times a day. montelukast (SINGULAIR) 10 [...] Types: Cigarettes Quit date: 05/2014 Years since quittin.9 Smokeless tobacco: Never Tobacco comments: vaps while at work Vaping Use Vaping Use: Former Substances: Nicotine, Flavoring Devices: Refillable tank Substance Use Topics Alcohol use: Not Currently Comment: occasionally Drug use: Not Currently Types: Crystal Meth, Heroin PHYSICAL EXAM BP 122/78 Pulse 83 Resp 16 Wt 100.7 kg (222 lb) LMP 02/28/2023 (Approximate) SpO2 96% BMI 39.33 kg/m? General Appearance: well appearing, in no acute distress, alert Pysch: mood and affect broad and appropriate Eyes: conjunctiva pink and moist, no icterus, sclera white, non-injected Health maintenance reviewed with patient: Depression Assessment Never done Hepatitis B Vaccine(1 of 3 - 19+ 3-dose series) due on 12/29/2023 Pap Testing due on 12/29/2023 HPV Testing due on 12/29/2023 Covid-19 Vaccine( season) due on 12/29/2023 Annual PCP Team Chronic Disease Visit due on 05/02/2024 DTaP,Tdap,Td Vaccine(12 - Td or Tdap) due on 08/30/2027 Spirometry Completed Influenza Vaccine Completed Hepatitis C Screening Completed HIV Screening Completed HPV Vaccine Aged Out DATA REVIEWED: No new labs ASSESSMENT/PLAN: 1. Class 2 obesity with body mass index (BMI) of 39.0 to 39.9 in adult, unspecified obesity type, unspecified whether serious comorbidity present - ICD9: 278.00, V85.39, ICD10: E66.9, Z68.39 (primary diagnosis) Weight increasing - Behavioral intervention - Increase activity level with goal of 30-60 min of exercise 5 days a week - increase fruit to 2 servings a day, veggies 4-5, keep with protein as eating. - get blood work drawn as previously ordered - follow up in 6-8 weeks 2. Weight loss counseling, encounter for - ICD9: V65.3, ICD10: Z71.3 As above Prescription instructions reviewed with patient as applicable. Potential red flag symptoms discussed with the patient. Reviewed appropriate action plan to take if red flag symptoms occur. Patient agreeable to treatment plan. Paige Ayala APRN.[facility] 05-15-2023 History of Presen t illness Narrative CC: Patient presents with: Recheck: 2 week follow up HPI Rowena Jaquez is a 32 year old female who presents today for weight. Typical diet: coffee with protein shake, no sugar or cream. Lunch : 1/2 cup of cottage cheese with mustard, raw vegetables, hard boiled egg, strawberry, salami. Dinner: 1/2 rotisserie chicken, salsa or marinara, cheese, sour cream, tortillas and steamed veggies. Has been doing this for a week and continuing to gain weight. Exercise: Starting a new job so has not had a chance to regularly start working out again. Blood work previously ordered has not been drawn yet. REVIEW OF SYSTEMS See HPI PAST MEDICAL [...] Take 1 capsule by mouth once daily. methylphenidate (RITALIN) 10 mg tablet Take 1 tablet by mouth two times a day for 14 days. 1 tablet twice daily VENTOLIN HFA 90 mcg/actuation inhaler INHALE 2 PUFFS EVERY 4 TO 6 HOURS NEEDED mometasone-formoterol (DULERA) 200-5 mcg/actuation inhaler Inhale 2 Puffs as instructed two times a day. montelukast (SINGULAIR) 10 [...] Types: Cigarettes Quit date: 05/2014 Years since quittin.9 Smokeless tobacco: Never Tobacco comments: vaps while at work Vaping Use Vaping Use: Former Substances: Nicotine, Flavoring Devices: Refillable tank Substance Use Topics Alcohol use: Not Currently Comment: occasionally Drug use: Not Currently Types: Crystal Meth, Heroin PHYSICAL EXAM BP 122/78 Pulse 83 Resp 16 Wt 100.7 kg (222 lb) LMP 02/28/2023 (Approximate) SpO2 96% BMI 39.33 kg/m General Appearance: well appearing, in no acute distress, alert Pysch: mood and affect broad and appropriate Eyes: conjunctiva pink and moist, no icterus, sclera white, non-injected Health maintenance reviewed with patient: Depression Assessment Never done Hepatitis B Vaccine(1 of 3 - 19+ 3-dose series) due on 12/29/2023 Pap Testing due on 12/29/2023 HPV Testing due on 12/29/2023 Covid-19 Vaccine( season) due on 12/29/2023 Annual PCP Team Chronic Disease Visit due on 05/02/2024 DTaP,Tdap,Td Vaccine(12 - Td or Tdap) due on 08/30/2027 Spirometry Completed Influenza Vaccine Completed Hepatitis C Screening Completed HIV Screening Completed HPV Vaccine Aged Out DATA REVIEWED: No new labs ASSESSMENT/PLAN: 1. Class 2 obesity with body mass index (BMI) of 39.0 to 39.9 in adult, unspecified obesity type, unspecified whether serious comorbidity present - ICD9: 278.00, V85.39, ICD10: E66.9, Z68.39 (primary diagnosis) Weight increasing - Behavioral intervention - Increase activity level with goal of 30-60 min of exercise 5 days a week - increase fruit to 2 servings a day, veggies 4-5, keep with protein as eating. - get blood work drawn as previously ordered - follow up in 6-8 weeks 2. Weight loss counseling, encounter for - ICD9: V65.3, ICD10: Z71.3 As above Prescription instructions reviewed with patient as applicable. Potential red flag symptoms discussed with the patient. Reviewed appropriate action plan to take if red flag symptoms occur. Patient agreeable to treatment plan. Paige Ayala APRN.CNP documented in this encounter [facility] 05-03-2023 History of Presen t illness Narrative CC: Patient presents with: Recheck: Medication follow up HPI Rowena Jaquez is a 32 year old female who presents today for follow up on adhd meds but has concerns for weight. ADHD: Is on ritalin twice a day and able to concentrate well with this. Needs refill. Obesity: Has gained weight over the last year and having difficulty losing weight. Recent sleep study which was negative. Recently started working out 2 days a week at the gym and trying to eat healthy. REVIEW OF SYSTEMS General: no fevers, no chills, no night sweats, no recurrent infections, no change in appetite, no change in energy, and no significant changes in weight Respiratory: no cough, no wheezing, no shortness of breath, no hemoptysis Cardiovascular: no chest pain, no chest pressure, no palpitations, and no swelling Endocrine: no fatigue, no polyuria, no polyphagia, and no polydipsia Neurologic: No headache, weakness, numbness, tingling, neck [...] Bilateral 2017 ALLERGIES Naproxen and Penicillins MEDICATIONS methylphenidate (RITALIN) 10 mg tablet Take 1 tablet by mouth two times a day for 14 days. 1 tablet twice daily VENTOLIN HFA [...] Types: Cigarettes Quit date: 05/2014 Years since quittin.9 Smokeless tobacco: Never Tobacco comments: vaps while at work Vaping Use Vaping Use: Former Substances: Nicotine, Flavoring Devices: Refillable tank Substance Use Topics Alcohol use: Not Currently Comment: occasionally Drug use: Not Currently Types: Crystal Meth, Heroin PHYSICAL EXAM BP 118/70 Pulse 84 Resp 16 Wt 99.8 kg (220 lb) LMP 02/28/2023 (Approximate) SpO2 97% BMI 38.97 kg/m General Appearance: well appearing, in no acute distress, alert Pysch: mood and affect broad and appropriate Skin: Skin color, texture, turgor normal for age; Eyes: conjunctiva pink and moist, no icterus, sclera white, non-injected Health maintenance reviewed with patient: Depression Assessment Never done Hepatitis B Vaccine(1 of 3 - 19+ 3-dose series) due on 12/29/2023 Pap Testing due on 12/29/2023 HPV Testing due on 12/29/2023 Covid-19 Vaccine(2 - 2022- season) due on 12/29/2023 Annual PCP Team Chronic Disease Visit due on 05/02/2024 DTaP,Tdap,Td Vaccine(12 - Td or Tdap) due on 08/30/2027 Spirometry Completed Influenza Vaccine Completed Hepatitis C Screening Completed HIV Screening Completed HPV Vaccine Aged Out DATA REVIEWED: No new labs ASSESSMENT/PLAN: 1. Attention deficit disorder (ADD) in adult - ICD9: 314.00, ICD10: F98.8 (primary diagnosis) Controlled with current treatment - METHYLPHENIDATE 10 MG TABLET PDMP website checked and validated. All prescriptions have been APPROPRIATELY filled. No suspicious activity was identified. 05/03/2023 by Paige Ayala APRN.SPORTS PHYSIOTHERAPIST 2. Class 2 obesity with body mass index (BMI) of 38.0 to 38.9 in adult, unspecified obesity type, unspecified whether serious comorbidity present - ICD9: 278.00, V85.38, ICD10: E66.9, Z68.38 Weight increasing - Behavioral intervention - keep food diary and start working on meal planning. Focus on getting 3-5 servings of vegetables daily and 3-5 servings of low protein daily as well - increase activity and exercise - follow up in 2 weeks. - COMP METABOLIC PANEL - TSH BLD - T4 FREE/FREE THYROX - HGB A1C Prescription instructions reviewed with patient as applicable. Potential red flag symptoms discussed with the patient. Reviewed appropriate action plan to take if red flag symptoms occur. Patient agreeable to treatment plan. Paige Ayala APRN.CNP documented in this encounter [facility] 05-03-2023 Note HNO ID: [id number] Author: PAIGE AYALA APRN.CNP Service: ? Author Type: Nurse Practitioner Type: Progress Notes Filed: 05/03/2023 08:45 Note Text: CC: Patient presents with: Recheck: Medication follow up HPI Rowena Jaquez is a 32 year old female who presents today for follow up on adhd meds but has concerns for weight. ADHD: Is on ritalin twice a day and able to concentrate well with this. Needs refill. Obesity: Has gained weight over the last year and having difficulty losing weight. Recent sleep study which was negative. Recently started working out 2 days a week at the gym and trying to eat healthy. REVIEW OF SYSTEMS General: no fevers, no chills, no night sweats, no recurrent infections, no change in appetite, no change in energy, and no significant changes in weight Respiratory: no cough, no wheezing, no shortness of breath, no hemoptysis Cardiovascular: no chest pain, no chest pressure, no palpitations, and no swelling Endocrine: no fatigue, no polyuria, no polyphagia, and no polydipsia Neurologic: No headache, weakness, numbness, tingling, neck [...] Bilateral 2017 ALLERGIES Naproxen and Penicillins MEDICATIONS methylphenidate (RITALIN) 10 mg tablet Take 1 tablet by mouth two times a day for 14 days. 1 tablet twice daily VENTOLIN HFA [...] Types: Cigarettes Quit date: 05/2014 Years since quittin.9 Smokeless tobacco: Never Tobacco comments: vaps while at work Vaping Use Vaping Use: Former Substances: Nicotine, Flavoring Devices: [employer] tank Substance Use Topics Alcohol use: Not Currently Comment: occasionally Drug use: Not Currently Types: Crystal Meth, Heroin PHYSICAL EXAM BP 118/70 Pulse 84 Resp 16 Wt 99.8 kg (220 lb) LMP 02/28/2023 (Approximate) SpO2 97% BMI 38.97 kg/m? General Appearance: well appearing, in no acute distress, alert Pysch: mood and affect broad and appropriate Skin: Skin color, texture, turgor normal for age; Eyes: conjunctiva pink and moist, no icterus, sclera white, non-injected Health maintenance reviewed with patient: Depression Assessment Never done Hepatitis B Vaccine(1 of 3 - 19+ 3-dose series) due on 12/29/2023 Pap Testing due on 12/29/2023 HPV Testing due on 12/29/2023 Covid-19 Vaccine(2022- season) due on 12/29/2023 Annual PCP Team Chronic Disease Visit due on 05/02/2024 DTaP,Tdap,Td Vaccine(12 - Td or Tdap) due on 08/30/2027 Spirometry Completed Influenza Vaccine Completed Hepatitis C Screening Completed HIV Screening Completed HPV Vaccine Aged Out DATA REVIEWED: No new labs ASSESSMENT/PLAN: 1. Attention deficit disorder (ADD) in adult - ICD9: 314.00, ICD10: F98.8 (primary diagnosis) Controlled with current treatment - METHYLPHENIDATE 10 MG TABLET PDMP website checked and validated. All prescriptions have been APPROPRIATELY filled. No suspicious activity was identified. 05/03/2023 by Paige Ayala APRN.MARILYNN 2. Class 2 obesity with body mass index (BMI) of 38.0 to 38.9 in adult, unspecified obesity type, unspecified whether serious comorbidity present - ICD9: 278.00, V85.38, ICD10: E66.9, Z68.38 Weight increasing - Behavioral intervention - keep food diary and start working on meal planning. Focus on getting 3-5 servings of vegetables daily and 3-5 servings of low protein daily as well - increase activity and exercise - follow up in 2 weeks. - COMP METABOLIC PANEL - TSH BLD - T4 FREE/FREE THYROX - HGB A1C Prescription instructions reviewed with patient as applicable. Potential red flag symptoms discussed with the patient. Reviewed appropriate action pl (more content not included)... [facility] 04-21-2023 Miscellaneous Notes Office leaving for the day. Rx placed in medical records for pickup. Patient telephoned, no answer. Left message to call office back for update. 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 Rx at nurses station on second floor. Syl Lopez LPN Rx printed, please call patient and let her know it can be picked up. Thanks. Pt phoned to check on reply and give provider's message below. Patient asking provider to please print it, and call her for metal pickling equipment operator tomorrow, and she will take the Rx to [facility]. [phone] Set Rx for print. We can fill her ritalin script for a 14 day supply to get her to the visit she has with Paige to discuss medication. Prior fills at [facility] pharmacy. Please see if due to e-scribe issues does she want this printed and to pick it up or would she like it sent to another pharmacy? Patient has been identified by name and date of : Yes Patient phones for refill(s): Requested Prescriptions Pending Prescriptions Disp Refills methylphenidate (RITALIN) 10 mg tablet 14 tablet 0 Sig: Take 1 tablet by mouth two times a day for 7 days. 1 tablet twice daily Date of last office visit in primary care: 02/09/2023 Date of next office visit in primary care: 05/03/2023 Please advise. Thank you. Francia Mehta LPN. Patient has been identified by name and date of : Yes, Provider Dr. Goddard Date 04-19-23 Time 1:43 pm Patient phones for refill(s): Requested Prescriptions Pending Prescriptions Disp Refills methylphenidate (RITALIN) 10 mg tablet 14 tablet 0 Sig: Take 1 tablet by mouth two times a day for 7 days. 1 tablet twice daily Date of last office visit in primary care: 02/09/2023 Date of next office visit in primary care: 05/03/2023 Please advise. Thank you. Alyce Garcia. documented in this encounter [facility] 04-04-2023 History of Presen t illness Narrative Images from the original note were not included. Patient: Rowena Jaquez PCP: Gonzales Goddard MD CC: follow up HPI: Rowena Jaquez 32 year old obese female former [...] 90 Resp 14 Ht 160 cm (5' 3) Wt 98.2 kg (216 lb 9.6 oz) [...] Component Latest Ref Rng & Units 09/23/2022 [place] IgE <0.35 kU/l <0.35 [place] Class Class 0 Class 0 [id number] Carlos Grass <0.35 kU/l 8.34 (H) Carlos [...] stay local and will send order to [facility]. Portions of this documentation were copied and pasted from previous office visit notes in order to provide a cohesive continuity of the history. The note has been reviewed and edited and updated as necessary. Thelma Marie PA-C documented in this encounter [facility] 02-09-2023 Instructions Paige Ayala APRN.CNP - 02/09/2023 12:07 PM EST Message me in 2-3 weeks if tolerating 10mg twice a day and I will order extended release documented in this encounter [facility] 02-09-2023 History of Presen t illness Narrative Chief Complaint Patient presents with: Recheck: Medication follow up HPI Rowena Jaquez is a 32 year old female [...] suspicious activity was identified. 02/09/2023 by Paige Ayala APRN.CNP Prescription instructions reviewed with patient as applicable. Potential red flag symptoms discussed with the patient. Reviewed appropriate action plan to take if red flag symptoms occur. Patient agreeable to treatment plan Paige Ayala APRN.CNP documented in this encounter [facility] 01-05-2023 Miscellaneous Notes Noted. Will discuss other options at follow up. Thank you Paige Ayala APRN.CNP Spoke with patient, stopped the medication the day she called and symptoms went away. Patient has follow up in Jan. Needs to stop the wellbutrin and see if symptoms subside. Could be from new med or possibly start of illness. Thank you Paige Ayala APRN.CNP Seen by Claudia in office 12/28/22 & [...] Elle Lawrence LPN documented in this encounter [facility] 12-28-2022 History of Presen t illness Narrative Chief Complaint Patient presents with: Recheck: Follow up HPI Rowena Jaquez is a 32 year old female [...] - Instructed patient to contact office or [id number] after-hours promptly should condition worsen or any new symptoms appear. - [facility] and after hours crisis line 2. Attention [...] occur. Patient agreeable to treatment plan Paige Ayala APRN.CNP documented in this encounter [facility] 12-14-2022 Miscellaneous Notes Phoned patient and went over notes below from Paige Ayala [employer] with understanding. With her being on so many medications in the past with possibly not tolerating, I would prefer to wait 2 more weeks before adding anything as side effects can take 3-4 weeks to start. Thank you Paige Ayala APRN.MARILYNN Patient calling said she started on Fluoxetine 10 mg and said the medication is helping her. Patient asking if she could be put on ADHD medication? She is still having problems focusing. Patient uses [facility] for her pharmacy. Please advise documented in this encounter [facility] 11-30-2022 History of Presen t illness Narrative CC: Patient presents with: Recheck: 3 month follow up HPI Rowena Jaquez is a 32 year old female [...] evaluation - Reviewed concept of neurochemical imbalance [facility] depression/anxiety, treatment options and benefits of counseling in combination with medication. Also reviewed benefits of sleep hygeine, diet and exercise - Instructed patient to contact office or [id number] after-hours promptly should condition worsen or any new symptoms appear. - [facility] and after hours crisis line 2. [...] occur. Patient agreeable to treatment plan Paige Ayala APRN.CNP documented in this encounter [facility] 11-09-2022 Procedure note Associated Ord er(s): NITRIC [...] 71.0 (A) NAME: KANIKA Lopez PATIENT NAME: Rowena Jaquez DATE: November 09, 2022 TIME: 2:51 PM documented in this encounter [facility] 11-09-2022 History of Presen t illness Narrative PULM FUNCTION SMARTBLOCK: Provider: Jaimie Chen MD Assisting Tech: Cleo Leach RPFT Exhaled Nitric Oxide: 1 documented in this encounter [facility] 09-23-2022 History of Presen t illness Narrative PULM FUNCTION SMARTBLOCK: Provider: Jaimie Chen MD Assisting Tech: Cleo Leach RPFT Exhaled Nitric Oxide: 1 documented in this encounter [facility] 09-23-2022 Procedure note Associated Ord er(s): NITRIC [...] 71.0 (A) NAME: KANIKA Lopez PATIENT NAME: Rowena Jaquez DATE: September 23, 2022 TIME: 9:05 AM documented in this encounter [facility] 09-23-2022 History of Presen t illness Narrative Images from the original note were not included. . [facility] [place] Note Patient name: Rowena Jaquez PCP: Gonzales Goddard MD Referring Physician: Britt Engel CNP Consultation requested by Britt Engel for an opinion regarding SOB and cough. My final recommendations will be communicated back to the requesting physician by way of shared Medical record or letter to requesting physician via US mail. 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 Wxpz-tco-ktmjamu antihistamines or decongestants may be helpful for [...] of your bed. You may try an mxcw-qdd-vuaujpy (OTC) antacid or an acid-blocking medicine such [...] Moderate to severe trouble breathing or wheezing 2700-[address] [employer] [place] [address], [place] [address]. All rights reserved. This information is not intended as a substitute for professional medical care. Always follow your healthcare professional's instructions. Follow Up Care 09/21/2022 07:46:07 With:LISBETH SWIFT Address: When:2-4 days With:Go to emergency room if symptoms worsen Address:Unknown [facility]:2-4 days [facility] Note Discharge Instructions Thank you for allowing [facility] to assist you with your healthcare needs. The following is important discharge information regarding your hospital visit. Diagnosis from Today's Visit Cough Cough What to Do Next Instructions from Your Care Team No qualifying data available. Post Acute Orders No qualifying data available. You Need to Schedule the Following Appointments Follow Up with EUSTISLISBETH When Within 2-4 days Where: Follow Up [...] or retail pharmacies. Medication Leaflets benzonatate (mounika meza) Melissa Butler What is the most important information [...] may report side effects to FDA at 8-311-TPC-8757. What other drugs will affect benzonatate? Using benzonatate with other drugs that make you drowsy can worsen this effect. Ask your doctor before using opioid medication, a sleeping pill, a muscle relaxer, or medicine for anxiety or seizures. Other drugs may affect benzonatate, including prescription and vstp-bik-jzglszw medicines, vitamins, and herbal products. Tell your [...] to ensure that the information provided by [employer]. ('[employer]') is accurate, up-to-date, and complete, but no guarantee is made to that effect. Drug information contained herein may be time sensitive. [employer] information has been compiled for use by healthcare practitioners and consumers in the [place] and therefore [employer] does not warrant that uses outside of the [place] are appropriate, unless specifically indicated otherwise. [employer]'s drug information does not endorse drugs, diagnose patients or recommend therapy. [employer] drug information is an informational resource designed [...] effective or appropriate for any given patient. [facility] does not assume any responsibility for any aspect of healthcare administered with the aid of information [facility] provides. The information contained herein is not intended to cover all possible uses, directions, precautions, warnings, drug interactions, allergic reactions, or adverse effects. If you have questions about the drugs you are taking, check with your doctor, nurse or pharmacist. Copyright 4248-7059 [employer]. Version: 9.01. Revision Date: 11/29/2018. Education Materials [...] cleaning agents, room deodorizers, and chemical fumes. Svcs-mkf-qmkkcwb antihistamines or decongestants may be helpful for [...] of your bed. You may try an ittw-emd-nltttly (OTC) antacid or an acid-blocking medicine such [...] Moderate to severe trouble breathing or wheezing 7770-[address] [employer] [place] [address], [place] [address]. All rights reserved. This information is not intended as a substitute for professional medical care. Always follow your healthcare professional's instructions. Additional Information VACCINATE! IT SAVES LIVES! Members of the community who have not yet received the COVID-19 vaccine and would like to receive it can visit one of [facility] vaccine clinics. There are many vaccine clinic locations within the [facility]. For locations and available times, please visit [email or web address] [email or web address] It is important to note that some COVID mobile vaccine clinics are held outdoors and may be canceled in rainy or stormy conditions. To learn more about pediatric vaccinations (ages 5-11), we invite you to visit the [facility] webpage. https://www.S[employer].org/p ages/6801-Dfxdj-Honwwclokxc-Freq nrntyu-Omiyg-Jltaiyeqf.html To learn more about the COVID-19 vaccine, we invite you to visit the CDC website for a list of frequently asked questions. https://www.cdc.gov/coronavirus/ 2019-ncov/vaccines/faq.html [facility] Patient Portal Access Instructions: Stay connected with your healthcare team and access your personal medical information anytime with the [facility] Patient Portal. If you would like a full copy of your medical records please contact the [facility] Medical Records Department Monday through Monday between 8a.m. and 4:30p.m. Please follow the directions below to access the portal: 1.Access the email account you provided upon registration to the hospital.2.Look for an invitation email from [facility].3.Open the email and access the invitation link: Accept Invitation to [facility].Fill in the required dorantes to create your account. Sign into [email or web address] with your username and password that you [...] you will allow to register on the [facility] for access to your information. You can also access the [facility] Patient Portal on the [employer] kimmy. Simply click on Health Records under Health Data and then click on the [facility] logo. HOW TO SAFELY DISPOSE OF PRESCRIPTION [...] Call your local pharmacy or go to [email or web address] to find one close to you.3.Make use of household items: Use cat litter or old coffee grounds to dispose medications if other options are not available. Mix your drugs with these household products, seal them in an airtight container and throw it into the garbage. Call [facility]: [phone] to be sure your drugs can be [...] been reviewed and explained to me and I,ROWENA JAQUEZ understand my current condition and have read and understand these discharge instructions. I have received a written copy of the plan/instructions. If I have questions, I am aware that I should contact my doctor. Patient/Automatic Toe Laster Signature: Date/Time: Relationship to Patient: Witness Name/Signature: Date/Time: [facility] 09-21-2022 Note ORIGINAL EXAMINATION: TWO XRAY VIEWS [...] Sign Date: 09/21/2022 8:53:21 AM Ordering Provider: GAURI MADERA [facility] 09-15-2022 History of Presen t illness Narrative PULM FUNCTION SMARTBLOCK: Provider: Britt Engel APRN.PEN RULER OPERATOR Assisting Tech: Cleo Leach RPFT Spirometry: 1 documented in this encounter [facility] 09-05-2022 Miscellaneous Notes Images from the original note were not included. Patient calling asking for her throat culture results. THROAT CULTURE Order: [id number] Status: Final result Visible to patient: Yes [...] Communication Edit Comments Add Notifications Back to Top Rowena No concerns on throat culture. Continue with plans to see ENT. Take care Paige Ayala APRN.CNP Written by Paige Ayala APRN.CNP on 09/01/2022 3:23 PM EDT Went over results, notes from Paige Ayala TRIMMER BUFFING WHEEL with understanding. documented in this encounter [facility] 08-31-2022 Miscellaneous Notes Patient notified, has appointment with ENT on 09/07. Please let patient know that throat culture is still in process and can take 3 days for final results. See my chart message for blood work. Thank you Paige Ayala APRN.CNP patient is calling in requesting results of blood work and throat culture that was completed. Please review and advise. Patient needs called with information documented in this encounter [facility] 08-29-2022 Instructions Paige Ayala APRN.MARILYNN - 08/29/2022 3:04 PM EDT Schedule with ENT Start pantoprazole as ordered by PCP documented in this encounter [facility] 08-29-2022 History of Presen t illness Narrative CC: Patient presents with: Recheck: Strep throat follow up, cough HPI Rowena Jaquez is a 31 year old female who presents today for follow up on recurrent strep throat. Saurabh been positive for strep 4 times in the past 4 months and treated for each time. Was seen and tested at an urgent care. Last antibiotic is unknown and unsure what it was. Works at a [employer] and has been changing her toothpaste and [...] Bilateral 2017 ALLERGIES Naproxen and Penicillins MEDICATIONS Gspocwpjmvakjmo-Mmwsrtolp-UH 2-30-10 mg/5 mL syrup Take 10 mL [...] occur. Patient agreeable to treatment plan. Paige Ayala APRN.CNP documented in this encounter [facility] 08-03-2022 Miscellaneous Notes Patient notified and verbalized [...] stomach is empty 2 hours after eating Pattie, Gonzales Goddard MD Patient could not tell me what was prescribed. Medication dispense history report shows she was given cephalexin and cough syrup listed on medication list by JAIRON in [place]. Can you call her and verify-- are [...] in for reevaluation (can be seen at [facility] if we don't have any openings). Aria Alex PA-C Patient notified, states was seen by [...] at least 3-4 days prior to appt. Aria Alex PA-C Pt called in for results of lab blood work. Results below given. No chlamydia or gonorrhea, But she is mildly anemic. ... Written by Gonzales Goddard MD on 08/01/2022 Pt asking if she needs to do anything regarding the mild anemia. Please advise. Linda Burkett LPN documented in this encounter [facility] 11-11-2020 History of Presen t illness Narrative Radiology Service Progress Note PATIENT NAME: Rowena Jaquez DATE OF SERVICE: November 11, 2020 TIME: 4:42 PM PATIENT IDENTITY VERIFICATION COMPLETED USING TWO (2) IDENTIFIERS: Name and Date of confirmed by patient verbally. FALL SCREENING: Has the patient had 2 falls in the last year or 1 fall with injury or currently using an Ambulatory Assistive Device (Walker, Cane, Wheelchair, Crutches, etc.)? Yes, Patient High Risk for Falls What interventions were put in place to prevent falls during this visit? Increased Observations by Caregivers PATIENT GENDER DATA: Female. status: : No status: NO. PATIENT RELEVANT IMPLANT DATA REVIEWED: Not Applicable RADIOLOGY DEPARTMENT: General X-ray: Exam(s) Completed: Lower Extremity X-Ray(s): Ankle, Right and Wt. Bearing PERIPHERAL IV DATA: Not applicable SIGNED BY: RT Alfredo(R) November 11, 2020 4:42 PM documented in this encounter [facility] 05-24-2016 History of Past i llness Narrative Problem Noted Date Resolved Date PUPP (pruritic urticarial papules and plaques of ) 05/24/2016 08/25/2016 Short interval between pregn ancies affecting in third trimester, antepartum 03/10/2016 08/25/2016 Overview: 03/10/2016Patient delivered her previous child 03/2015. This is an unplanned .TKRN with care elsewhere, antepart um 03/10/2016 08/25/2016 Overview: Girl on us 03/10/2016 Patient is transferring care here from [place]. She recently moved back here from there. Received records from [place] from Dr Delaney. Missing are the lab [...] thoughts of hurting others.TKRN History of delivery 03/10/201607/2016 Overview: Signed consent form for . Shanhti Felton MD 03/10/2016Pt had a previous C section for breech presentation. 74% likelihood she desires a . She will discuss this with Dr Felton at her visit tomorrow. 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 She recently moved back here from there. Received records from [place] from Dr Delaney. Missing are the lab [...] She will discuss with Dr Felton at [facility] tomorrrow.TKRN History of depression 03/10/2016 08/25/2016 Overview: [...] of this encounter (statuses as of 08/30/2022) [facility] History of Past illness Narrative* Problem Noted [...] 03/10/2016 Patient is transferring care here from [place]. She recently moved back here from there. Received records from [place] from Dr Delaney. Missing are the lab [...] She will discuss with Dr Felton at [facility] tomorrrow.TKRN History of depression 03/10/2016 08/25/2016 Overview: [...] of this encounter (statuses as of 08/30/2022) [facility] History of Past illness Narrative* Problem Noted [...] 03/10/2016 Patient is transferring care here from [place]. She recently moved back here from there. Received records from [place] from Dr Delaney. Missing are the lab [...] of this encounter (statuses as of 09/01/2022) [facility] History of Past illness Narrative* Problem Noted [...] 03/10/2016 Patient is transferring care here from [place]. She recently moved back here from there. Received records from [place] from Dr Dealney. Missing are the lab reports. I called [...] of this encounter (statuses as of 09/05/2022) [facility] History of Past illness Narrative* Problem Noted [...] 03/10/2016 Patient is transferring care here from [place]. She recently moved back here from there. Received records from [place] from Dr Delaney. Missing are the lab [...] She will discuss with Dr Felton at [facility] tomorrrow.TKRN History of depression 03/10/2016 08/25/2016 Overview: [...] of this encounter (statuses as of 09/15/2022) [facility] History of Past illness Narrative* Problem Noted [...] 03/10/2016 Patient is transferring care here from [place]. She recently moved back here from there. Received records from [place] from Dr Delaney. Missing are the lab [...] She will discuss with Dr Felton at [facility] tomorrrow.TKRN History of depression 03/10/2016 08/25/2016 Overview: [...] of this encounter (statuses as of 09/23/2022) [facility] History of Past illness Narrative* Problem Noted [...] 03/10/2016 Patient is transferring care here from [place]. She recently moved back here from there. Received records from [place] from Dr Delaney. Missing are the lab [...] of this encounter (statuses as of 09/23/2022) [facility] History of Past illness Narrative* Problem Noted [...] 03/10/2016 Patient is transferring care here from [place]. She recently moved back here from there. Received records from [place] from Dr Delaney. Missing are the lab [...] She will discuss with Dr Felton at [facility] tom[facility]row.TKRN History of depression 03/10/2016 08/25/2016 Overview: [...] of this encounter (statuses as of 10/01/2022) [place] [address]-04-2017 History of Past illness Narrative* Problem Noted [...] 03/10/2016 Patient is transferring care here from [place]. She recently moved back here from there. Received records from [place] from Dr Delaney. Missing are the lab [...] She will discuss with Dr Felton at [facility] tomorrrow.TKRN History of depression 03/10/2016 08/25/2016 Overview: [...] of this encounter (statuses as of 11/10/2022) [facility] History of Past illness Narrative* Problem Noted [...] 03/10/2016 Patient is transferring care here from [place]. She recently moved back here from there. Received records from [place] from Dr Delaney. Missing are the lab [...] She will discuss with Dr Felton at [facility] tomorrrow.TKRN History of depression 03/10/2016 08/25/2016 Overview: [...] of this encounter (statuses as of 12/01/2022) [facility] History of Past illness Narrative* Problem Noted [...] 03/10/2016 Patient is transferring care here from [place]. She recently moved back here from there. Received records from [place] from Dr Delaney. Missing are the lab [...] She will discuss with Dr Felton at [facility] tomorrrow.TKRN History of depression 03/10/2016 08/25/2016 Overview: [...] of this encounter (statuses as of 12/14/2022) [facility] History of Past illness Narrative* Problem Noted [...] 03/10/2016 Patient is transferring care here from [place]. She recently moved back here from there. Received records from [place] from Dr Delaney. Missing are the lab [...] She will discuss with Dr Felton at [facility] tomorrrow.TKRN History of depression 03/10/2016 08/25/2016 Overview: [...] of this encounter (statuses as of 12/29/2022) [facility] History of Past illness Narrative* Problem Noted [...] 03/10/2016 Patient is transferring care here from [place]. She recently moved back here from there. Received records from [place] from Dr Delaney. Missing are the lab [...] She will discuss with Dr Felton at [facility] tomorrrow.TKRN History of depression 03/10/2016 08/25/2016 Overview: [...] of this encounter (statuses as of 01/05/2023) [facility] History of Past illness Narrative* Problem Noted [...] 03/10/2016 Patient is transferring care here from [place]. She recently moved back here from there. Received records from [place] from Dr Delaney. Missing are the lab [...] She will discuss with Dr Felton at [facility] tomorrrow.TKRN History of depression 03/10/2016 08/25/2016 Overview: [...] of this encounter (statuses as of 02/10/2023) [facility] History of Past illness Narrative* Problem Noted [...] 03/10/2016 Patient is transferring care here from [place]. She recently moved back here from there. Received records from [place] from Dr Delaney. Missing are the lab [...] She will discuss with Dr Felton at [facility] tomorrrow.TKRN History of depression 03/10/2016 08/25/2016 Overview: [...] of this encounter (statuses as of 04/04/2023) [facility] History of Past illness Narrative* Problem Noted [...] 03/10/2016 Patient is transferring care here from [place]. She recently moved back here from there. Received records from [place] from Dr Delaney. Missing are the lab [...] She will discuss with [facility] Felton at [facility].TKRN History of depression 03/10/2016 08/25/2016 Overview: [...] as of this encounter (statuses as of 04/14/2023) [facility] History of Past illness Narrative* Problem Noted [...] 03/10/2016 Patient is transferring care here from [place]. She recently moved back here from there. Received records from [place] from Dr Delaney. Missing are the lab [...] as of this encounter (statuses as of 04/22/2023) [facility] History of Past illness Narrative* Problem Noted [...] 03/10/2016 Patient is transferring care here from [place]. She recently moved back here from there. Received records from [place] from Dr Delaney. Missing are the lab [...] She will discuss with Dr Felton at [facility] tomorrrow.TKRN History of depression 03/10/2016 08/25/2016 Overview: [...] as of this encounter (statuses as of 05/03/2023) [facility] History of Past illness Narrative* Problem Noted [...] 03/10/2016 Patient is transferring care here from [place]. She recently moved back here from there. Received records from [place] from Dr Delaney. Missing are the lab [...] She will discuss with Dr Felton at [facility] tomorrrow.TKRN History of depression 03/10/2016 08/25/2016 Overview: [...] as of this encounter (statuses as of 05/15/2023) [facility] History of Past illness Narrative* Problem Noted [...] 03/10/2016 Patient is transferring care here from [place]. She recently moved back here from there. Received records from [place] from Dr Delaney. Missing are the lab [...] She will discuss with Dr Felton at [facility] tomorrrow.TKRN History of depression 03/10/2016 08/25/2016 Overview: [...] as of this encounter (statuses as of 06/06/2023) [facility] August 08, 2022 7:56am Note Date/Time August 08, 2022 6:56 am [facility] Medical Records Department [address] [place] [address] Emergency Department Summary 08/08/22 MR#: [id number] Acct: [id number] Name: ROWENA JAQUEZ Rep #:[id number] : 1990 31 From: Jeremiah Colbert PCP: Dr. Gonzales Goddard MD Status:REG E R Location: ED HPI History of Present Illness Chief Complaint: General Illness Informant: patient Narrative Narrative: Present persistent cough sore throat over the past 4 weeks. Initially diagnosedwith strep has been to her PCP and well now. She has had persistent strep last time seen 2 weeks ago. She denies tobacco history. States symptoms feeling like it is getting worse. Reports dyspnea. Currently on Ask. She is on Bromfed for cough. PCP also has her on pantoprazole and iron. She has inhaler. Prior to 4 weeks ago did not have significant strep history. She states she ispost to return next month to the office to recheck if she still has strep. [facility] Medical History Carpal tunnel syndrome of right wrist Depression PCOS (polycystic ovarian syndrome) Home Medications ibuprofen 800 mg tablet 800 mg PO TID PRN pain #20 tabs 02/16/22 [Rx Last Taken Unknown] ryelebjsanhbhmm-hqwrisjamkyrocx-AH 2 mg-30 mg-10 mg/5 mL oral syrup ml 08/08/22 [History Last Taken Unknown] cephalexin 500 mg capsule mg 08/08/22 [History Last Taken Unknown] ferrous sulfate 325 mg (65 mg iron) tablet (FeroSul) mg 08/08/22 [History Last Taken Unknown] pantoprazole 40 mg tablet,delayed release mg PO 08/08/22 [History Last Taken Unknown] Allergy/AdvReac Type Severity Reaction Status Date / Time hydrocodone [From [place]] Allergy Hives Verified 02/16/22 08:28 naproxen Allergy Rash Verified 02/16/22 08:28 Penicillins Allergy Hives Verified 02/16/22 08:28 Family History Grandfather Diabetes Heart disease Surgical History delivery delivered removal of gallbladder Social History Smoking Status: Current every day smoker tobacco type: e-cigarettes alcohol intake: never substance use type: does not use caffeine: Yes what type of physical activity do you participate in: none seatbelt use: sometimes do you feel safe at home: Yes additional social history: Single ROS ROS ED Constitutional Constitutional ED: Denies chills, fever(s) or sweats Eyes Eyes: Denies change in vision ENT ENT ED: Reports sore throat; Denies dysphagia Cardiovascular Cardiovascular: Denies chest pain, leg edema, palpitations or racing heartbeat Respiratory/Chest Respiratory/Chest: Reports cough; Denies dyspnea or dyspnea on exertion Gastrointestinal Gastrointestinal: Denies abdominal pain, diarrhea, nausea or vomiting Genitourinary Genitourinary ED: Denies dysuria, hematuria or urinary frequency Musculoskeletal Musculoskeletal: Denies back pain, extremity pain or neck pain Integumentary Denies rash or wounds Neurologic Neurologic: Denies headache(s), paresthesias or weakness EXAM Physical Exam Const Vital Signs: 08/08/22 06:46 08/08/22 06:49 Temperature 97.2 F L Temperature Source Temporal Pulse Rate 86 Respiratory Rate 18 Respiratory Effort Normal Non-Labored Respiratory Pattern Normal Blood Pressure 129/75 H Blood Pressure Mean 93 Pulse Ox 98 Oxygen Delivery Method Room Air Positive well nourished and well developed Constitutional Narrative: Occasional coughing during exam. General Appearance ED: well developed and NAD HEENT Reports moist mucous membranes HEENT Narrative: Minimal erythema posterior pharynx, no exudates, airway patent, no stridor. normocephalic and atraumatic Eyes PERRL, EOMs intact bilaterally and conjunctivae normal General Eye ED: Yes normal appearance of both eyes Neck no lymphadenopathy and supple General: Negative for tenderness Chest Wall Chest: Negative for tenderness Resp normal respiratory effort and normal air movement Effort and Inspection: symmetric chest movement; Negative for respiratory distress Cardio regular rate, regular rhythm and no murmurs Peripheral Pulses: pulses 2+ throughout GI normal to inspection, nondistended, normoactive bowel sounds and non-tender Palpation: Negative for guarding or rebound tenderness present Back/Spine no CVA tenderness and no thoracic nor lumbar tenderness Extremity normal to inspection General Extremety ED: Negative for edema or tenderness General Extremity: Negative for edema Neuro oriented x3 and no sensory deficits noted Sensorium / Orientation: awake and alert Skin no rashes or lesions noted and no wounds MDM MDM MDM Narrative Medical decision making narrative: Interventions / MDM: Differential diagnosis: Bronchitis, pneumonia, pharyngitis Diagnosis considered but do not suspect: N/A My EKG interpretation: N/A Imaging independently reviewed and interpreted by myself: 2 view chest x-ray: Noinfiltrates, no pneumothorax External documents reviewed: N/A Test considered but not ordered:N/A ED course: Patient nontoxic vital signs stable. Persistent cough and sore throat currently on antibiotics. She reports no x-rays have been done. This was ordered, with her symptomatic sore throat also given a dose of dexamethasonein the ED which has not been provided in the past. Re-evaluation: 0750: Chest x-ray negative. Rapid strep negative. Patient is reassured she will finish her antibiotics. Discussed adjunct therapies for her cough. Outpatient follow-up. All questions were answered. Disposition discussed with patient/family/significant other: Patient Case discussed with consulting clinician: N/A Radiography Diagnostic Testing: Clinical Impression(s) from Imaging Studies Chest X-Ray 08/08/22 07:00 IMPRESSION: No acute cardiopulmonary abnormality. Electronically Signed: Paul Obrien MD at 7:18 EDT , Discharge Plan Triage Chief Complaint: General Illness ED Provider: Jeremiah Kwong Dx/Rx/DC Orders Clinical Impression: Bronchitis, Pharyngitis Instructions: ED Bronchitis with Wheezing (Adult) Prescriptions: No Action ibuprofen 800 mg tablet 800 mg PO TID PRN (Reason: pain) Qty: 20 0RF cephalexin 500 mg capsule Label Comments: Take 1 capsule (Oral) 2 times per day for 10 days pantoprazole 40 mg tablet,delayed release (DR/EC) PO Label Comments: TAKE 1 TABLET BY MOUTH DAILY WITH BREAKFAST ON AN EMPTY STOMACH ONE-HALF HOURBEFORE MEAL ferrous sulfate [FeroSul] 325 mg (65 mg iron) tablet Label Comments: TAKE 1 TABLET BY MOUTH TWICE DAILY WITH MEALS [id number]-vnntacqvg-TM 2-30-10 mg/5 mL syrup Label Comments: Take 10 mL (Oral) every 4-6 hours for 5 days Stand Alone Forms: ED Work / School Excuse Primary Care Provider: Gonzales Goddard Referrals: Gonzales Goddard MD [Primary Care Provider] - 1 Week Activity Restrictions/Additional Instructions: Strep negative. Chest x-ray negative. Finish your antibiotic. Use vapor rubs emitted fire to help with symptoms. Follow-up with your doctor. Disposition Disposition: Home, Self Care What to do if you have Problems For any increased pain, shortness of breath, bleeding, nausea or vomiting, chestpain, or any unexpected problems, contact your Primary Care Provider. Call [facility] ([phone]) or report to the closest Emergency Room. Call 911 if necessary. 08/08/22 0756 <Electronically signed by Jeremiah Colbert> Cosigner Signature (if applicable): CC: Dr. Gonzales Goddard MD ~ Signed [facility] Work Phone: Evaluation + Plan note No data available for this section [facility] note* Diagnosis Anemia, unspecified type- Primary documented in this encounter [facility] Work Phone: Evaluation note* Diagnosis Recurrent streptococcal pharyngitis- Primary Sore throat Acute pharyngitis Acute cough Anemia, unspecified type documented in this encounter [facility] note* Diagnosis Subacute cough Cough documented in this encounter [facility] note* Diagnosis Mild persistent asthma without complication- Primary Unspecified asthma Seasonal allergic rhinitis due to other allergic trigger [facility]* Diagnosis Mild persistent asthma without complication Unspecified asthma documented in this encounter [facility] note* Diagnosis Anxiety and depression- Primary Dysthymic disorder Attention deficit disorder (ADD) in adult [facility]* Diagnosis Anxiety and depression- Primary Dysthymic disorder Attention deficit disorder (ADD) in adult Encounter for immunization Need for other specified prophylactic vaccination against single bacterial disease documented in this encounter [facility] note* Diagnosis Attention deficit disorder (ADD) in adult- Primary [facility]* Diagnosis Mild persistent asthma without complication- Primary Unspecified asthma Seasonal allergic rhinitis due to other allergic trigger Observed sleep apnea Unspecified sleep apnea [facility] Diagnosis Attention deficit disorder (ADD) in adult [facility] Diagnosis Attention deficit disorder (ADD) in adult- Primary Class 2 obesity with body mass index (BMI) of 38.0 to 38.9 in adult, unspecified obesity type, unspecified whether serious comorbidity present documented in this encounter [facility] note* Diagnosis Class 2 obesity with body mass index (BMI) of 39.0 to 39.9 in adult, unspecified obesity type, unspecified whether serious comorbidity present- Primary Weight loss counseling, encounter for Dietary surveillance and counseling documented in this encounter [facility] note* Diagnosis Attention deficit disorder (ADD) in adult documented in this encounter [facility] note* Diagnosis Attention deficit disorder (ADD) in adult documented in this encounter [facility] note* Diagnosis Mild persistent asthma without complication- Primary Unspecified asthma Environmental allergies Other allergy, other than to medicinal agents Obesity, Class III, BMI 40-49.9 (morbid obesity) ([facility]) Morbid obesity [facility] this [facility]* Diagnosis Attention deficit disorder (ADD) in adult documented in this encounter [facility] note* Diagnosis Attention deficit disorder (ADD) in adult documented in this encounter [facility] note* Diagnosis Sprain of right ankle, unspecified ligament, subsequent encounter Pain and swelling of right ankle documented in this encounter [facility] note* Diagnosis Sore throat- Primary Acute pharyngitis URI, acute Acute upper respiratory infections of unspecified site [facility] Additional Instructions Strep negative. Chest x-ray negative. Finish your antibiotic. Use vapor rubs emitted fire to help with symptoms. Follow-up with your doctor.[facility] Work Phone: Reason for referral (narrative)* Outpatient Procedure (Routine) - Authorized Specialty Diagnoses / Procedures Referred By En reyes Referred To Contact [facility] [place] Diagnoses Mild persistent asthma without complication Procedures NITRIC OXIDE, EXHALED NITRIC OXIDE GAS DETERMINATION Jaimie Chen MD [address] [place] [address] [place] [address] Referral ID Status Reason Start Date Expiration Date Visits Requested Visits Authorized [id number] Authorized Auto-Generat ed Referral 09/23/2022 10/23/2023 1 1 * Medication Prior Authorization - Closed Specialty Diagnoses / Procedures Referred By En reyes Referred To Contact Jaimie Chen MD [address] [place] [address] Referral ID Status Reason Start Date Expiration Date Visits Re quested Visits Authorized [id number] Closed 1 1 * Outpatient Procedure (Routine) - Closed Specialty Diagnoses / Procedures Referred By En reyes Referred To [facility] [place] Diagnoses Subacute cough Procedures NITRIC OXIDE, EXHALED NITRIC OXIDE GAS DETERMINATION Jaimie Chen MD [address] [place] [address] [facility] [address] [place] [id number] Referral ID Status Reason Start Date Expiration Date V isits Requested Visits Authorized [id number] Closed Auto-Generate d Referral 09/23/2022 10/23/2023 1 1 [facility] for referral (narrative)* Diagnostic Procedure Only (Routine) - Closed Specialty Diagnoses / Procedures Referred By Contac t Referred To Contact XR IMAGING Diagnoses Sprain of right ankle, unspecified ligament, subsequent encounter Pain and swelling of right ankle Procedures XR ANKLE GENERAL 3V AP/LAT/OBL RT X-RAY ANKLE MINIMUM 3 VIEWS Aditi Severino, SPORTS PHYSIOTHERAPIST [address] [place] [address] [place] [address] Referral ID Status Reason Start Date Expiration Date V isits Requested Visits Authorized [id number] Closed Auto-Generate d Referral 11/11/2020 12/11/2021 1 1 [facility] for visit Narrative* Outpatient Procedure (Routine) - Closed Specialty Diagnoses / Procedures Referred By Contac t Referred To Contact [facility] Diagnoses Mild persistent asthma without complication Procedures NITRIC OXIDE, EXHALED NITRIC OXIDE GAS DETERMINATION Jaimie Chen MD [address] [place] [address] [facility] [address] [place] [id number] Referral ID Status Reason Start Date Expiration Date V isits Requested Visits Authorized [id number] Closed Auto-Generate d Referral 09/23/2022 10/23/2023 1 1 [facility] for visit Narrative* Diagnostic Procedure Only (Routine) - Closed Specialty Diagnoses / Procedures Referred By Contac t Referred To Contact XR IMAGING Diagnoses Sprain of right ankle, unspecified ligament, subsequent encounter Pain and swelling of right ankle Procedures XR ANKLE GENERAL 3V AP/LAT/OBL RT X-RAY ANKLE MINIMUM 3 VIEWS Aditi Sevreino M, AUTOMATION CONTROLS ENGINEER.SPORTS PHYSIOTHERAPIST [address] [place] [address] [place] [address] Referral ID Status Reason Start Date Expiration Date V isits Requested Visits Authorized [id number] Closed Auto-Generate d Referral 11/11/2020 12/11/2021 1 1 [facility] Summary Purpose Family History No Family History Records Found Relationship Condition Age at Onset Recorded Date/T dany grandfather Diabetes mellitus Unknown Cardiac disease Unknown Advance Directives No Advanced Directives Records Found Advance Directive Response Recorded Date/ Time Advance Directives No March 20, 2017 9:55am Living Will No August 08, 2022 6:49am Power of Health Care Marketing Manager No August 08 6:49am Advance Directive Response Recorded Date/ Time Advance Directives No March 07, 2019 11:24am Living Will No August 08, 2022 6:49am Power of Health Care Marketing Manager No August 08 6:49am Advance Directive Response Recorded Date/ Time Advance Directives No March 07, 2019 10:24am Living Will No March 22 6:51am Power of Health Care Marketing Manager No March 22, 2023 6:51am Chief Complaint and Reason for Visit Chief Complaint SORE THROAT, COUGH Chief Complaint SORE THROAT, COUGH PHARYNGITIS PHARYNGITIS Chief Complaint SORE THROAT, COUGH PHARYNGITIS PHARYNGITIS DYSPHAGIA Chief Complaint SORE THROAT, COUGH PHARYNGITIS PHARYNGITIS DYSPHAGIA DYSPHAGIA Chief Complaint flank pain Chief Complaint flank pain SNORING, SLEEP DISORDER Reason for Referral Specialty Diagnoses / Procedures Referred By En reyes Referred To Contact Allergy Diagnoses Environmental allergies Procedures CONSULT TO ALLERGY/IMMUNOLOGY Jaimie Chen MD [address] [place] [address] Dale Guzman [address] [place] [address] Referral ID Status Reason Start Date Expiration Date Visits Requested Visits Authorized [id number] Ref Not Required PCP Requested Referral 08/10/2023 08/09/2024 1 1 Specialty Diagnoses / Procedures Referred By Contac t Referred To Contact Diagnoses Attention deficit disorder (ADD) in adult Older, ELI GibsonN.SPORTS PHYSIOTHERAPIST [address] [facility] [place] [place] [address] Referral ID Status Reason Start Date Expiration Date Visits Re quested Visits Authorized [id number] Closed 1 1 Additional Source Comments INFORMATION SOURCE (unrecogn ized section and content) DATE CREATED AUTHOR 08/21/2017 [facility] DATE CREATED AUTHOR AUTHOR'S ORGANIZ ATION 12/10/2019 [facility] DATE CREATED AUTHOR AUTHOR'S ORGANIZ ATION 01/01/2020 [facility] DATE CREATED AUTHOR AUTHOR'S ORGANIZ ATION 10/17/2022 [facility] [place] DATE CREATED AUTHOR AUTHOR'S ORGANIZ ATION 04/24/2024 [facility] DATE CREATED AUTHOR AUTHOR'S ORGANIZ ATION 09/20/2024 [facility] Source Comments (unrecognize d section and content) In the event this informatio n is protected by the Federal Confidentiality of Alcohol and Drug Abuse Patient Records regulations: The Federal rules restrict any use of the information to criminally investigate or prosecute any alcohol or drug abuse patient.[facility] the event this information is protected by the Federal Confidentiality of Alcohol and Drug Abuse Patient Records regulations: The Federal rules restrict any use of the information to criminally investigate or prosecute any alcohol or drug abuse patient.[facility] the event this information is protected by the Federal Confidentiality of Alcohol and Drug Abuse Patient Records regulations: The Federal rules restrict any use of the information to criminally investigate or prosecute any alcohol or drug abuse patient.[facility] the event this information is protected by the Federal Confidentiality of Alcohol and Drug Abuse Patient Records regulations: The Federal rules restrict any use of the information to criminally investigate or prosecute any alcohol or drug abuse patient.[facility] the event this information is protected by the Federal Confidentiality of Alcohol and Drug Abuse Patient Records regulations: The Federal rules restrict any use of the information to criminally investigate or prosecute any alcohol or drug abuse patient.[facility] the event this information is protected by the Federal Confidentiality of Alcohol and Drug Abuse Patient Records regulations: The Federal rules restrict any use of the information to criminally investigate or prosecute any alcohol or drug abuse patient.[facility] the event this information is protected by the Federal Confidentiality of Alcohol and Drug Abuse Patient Records regulations: The Federal rules restrict any use of the information to criminally investigate or prosecute any alcohol or drug abuse patient.[facility] the event this information is protected by the Federal Confidentiality of Alcohol and Drug Abuse Patient Records regulations: The Federal rules restrict any use of the information to criminally investigate or prosecute any alcohol or drug abuse patient.[facility] the event this information is protected by the Federal Confidentiality of Alcohol and Drug Abuse Patient Records regulations: The Federal rules restrict any use of the information to criminally investigate or prosecute any alcohol or drug abuse patient.[facility] the event this information is protected by the Federal Confidentiality of Alcohol and Drug Abuse Patient Records regulations: The Federal rules restrict any use of the information to criminally investigate or prosecute any alcohol or drug abuse patient.[facility] the event this information is protected by the Federal Confidentiality of Alcohol and Drug Abuse Patient Records regulations: The Federal rules restrict any use of the information to criminally investigate or prosecute any alcohol or drug abuse patient.[facility] the event this information is protected by the Federal Confidentiality of Alcohol and Drug Abuse Patient Records regulations: The Federal rules restrict any use of the information to criminally investigate or prosecute any alcohol or drug abuse patient.[facility] the event this information is protected by the Federal Confidentiality of Alcohol and Drug Abuse Patient Records regulations: The Federal rules restrict any use of the information to criminally investigate or prosecute any alcohol or drug abuse patient.[facility] the event this information is protected by the Federal Confidentiality of Alcohol and Drug Abuse Patient Records regulations: The Federal rules restrict any use of the information to criminally investigate or prosecute any alcohol or drug abuse patient.[facility] the event this information is protected by the Federal Confidentiality of Alcohol and Drug Abuse Patient Records regulations: The Federal rules restrict any use of the information to criminally investigate or prosecute any alcohol or drug abuse patient.[facility] the event this information is protected by the Federal Confidentiality of Alcohol and Drug Abuse Patient Records regulations: The Federal rules restrict any use of the information to criminally investigate or prosecute any alcohol or drug abuse patient.[facility] the event this information is protected by the Federal Confidentiality of Alcohol and Drug Abuse Patient Records regulations: The Federal rules restrict any use of the information to criminally investigate or prosecute any alcohol or drug abuse patient.[facility] the event this information is protected by the Federal Confidentiality of Alcohol and Drug Abuse Patient Records regulations: The Federal rules restrict any use of the information to criminally investigate or prosecute any alcohol or drug abuse patient.[facility] the event this information is protected by the Federal Confidentiality of Alcohol and Drug Abuse Patient Records regulations: The Federal rules restrict any use of the information to criminally investigate or prosecute any alcohol or drug abuse patient.[facility] the event this information is protected by the Federal Confidentiality of Alcohol and Drug Abuse Patient Records regulations: The Federal rules restrict any use of the information to criminally investigate or prosecute any alcohol or drug abuse patient.[facility] the event this information is protected by the Federal Confidentiality of Alcohol and Drug Abuse Patient Records regulations: The Federal rules restrict any use of the information to criminally investigate or prosecute any alcohol or drug abuse patient.[facility] the event this information is protected by the Federal Confidentiality of Alcohol and Drug Abuse Patient Records regulations: The Federal rules restrict any use of the information to criminally investigate or prosecute any alcohol or drug abuse patient.[facility] the event this information is protected by the Federal Confidentiality of Alcohol and Drug Abuse Patient Records regulations: The Federal rules restrict any use of the information to criminally investigate or prosecute any alcohol or drug abuse patient.[facility] the event this information is protected by the Federal Confidentiality of Alcohol and Drug Abuse Patient Records regulations: The Federal rules restrict any use of the information to criminally investigate or prosecute any alcohol or drug abuse patient.[facility] the event this information is protected by the Federal Confidentiality of Alcohol and Drug Abuse Patient Records regulations: The Federal rules restrict any use of the information to criminally investigate or prosecute any alcohol or drug abuse patient.[facility] the event this information is protected by the Federal Confidentiality of Alcohol and Drug Abuse Patient Records regulations: The Federal rules restrict any use of the information to criminally investigate or prosecute any alcohol or drug abuse patient.[facility] the event this information is protected by the Federal Confidentiality of Alcohol and Drug Abuse Patient Records regulations: The Federal rules restrict any use of the information to criminally investigate or prosecute any alcohol or drug abuse patient.[facility] Reason for Visit (unrecogniz ed section and content) Reason Comments Results Reason Comments Recheck Strep throat follow up, cough Reason Comments Results labs Reason Comments Spirometry Specialty Diagnoses / Procedures Referred By Contac t Referred To Contact [facility] Diagnoses Subacute cough Procedures SPIROMETRY WITH DILATOR IF OBSTRUCTED BRNCDILAT RSPSE SPMTRY PRE&POST-BRNCDILAT ADMN Britt Engel, AUTOMATION CONTROLS ENGINEER.PEN RULER OPERATOR [address] [place] [address] [facility] [address] [place] [id number] Referral ID Status Reason Start Date Expiration Date V isits Requested Visits Authorized [id number] Closed Auto-Generate d Referral 09/13/2022 10/13/2023 1 1 Specialty Diagnoses / Procedures Referred By Contac t Referred To Contact [facility] Diagnoses Subacute cough Procedures NITRIC OXIDE, EXHALED NITRIC OXIDE GAS DETERMINATION Jaimie Chen MD [address] [place] [address] [facility] [address] [place] [id number] Referral ID Status Reason Start Date Expiration Date Visits Requested Visits Authorized [id number] Pending Review Auto-Generat ed Referral 09/23/2022 10/23/2023 1 1 Reason Comments New Patient Cough Reason Comments Recheck 3 month follow up Reason Comments Patient Question Reason Comments Recheck Follow up Reason Comments Medication Problem Reason Comments Recheck Medication follow up Reason Comments Asthma Reason Comments Appointment Reason Comments Refill Request Reason Comments Recheck 2 week follow up Reason Onset Date Comments Refill Request 06/05/2023 Reason Onset Date Comments Refill Request 06/26/2023 Reason Comments Established Patient asthma Reason Onset Date Comments Refill Request 08/09/2023 Reason Onset Date Comments Refill Request 2023 Reason Comments Cough headache, right ear pain x 3 days Care Teams (unrecognized sec tion and content) [employer] L[employer] Mechanic Relationship Specialty Start Date End Date Gonzales Gdodard MD [address] [place], [place] [id number] PCP - General Internal Medicine 01/28/16 Team Status: Active Member Role Status Dates Dr. Gonzales Goddard MD Family Provider Active Dr. Gonzales Goddard MD Primary Care Provider Active Team Status: Inactive Member Role Status Dates Dr. Gonzales Goddard MD Primary Care Provider Active Dr. Jeremiah Kwong DO Emergency Provider Active F[employer] Lift Mechanic Relationship Specialty Start Date End Date Gonzales Goddard MD [address] [place], [place] [id number] PCP - General Internal Medicine 01/28/16 Fork Lift Mechanic Relationship Specialty Start Date End Date Gonzales Goddard MD [address] [place], [place] [address] PCP - General Internal Medicine 01/28/16 Fork Lift Mechanic Relationship Specialty Start Date End Date Gonzales Goddard MD [address] [place], [place] [address] PCP - General Internal Medicine 01/28/16 Fork Lift Mechanic Relationship Specialty Start Date End Date Gonzales Goddard MD [address] [place], [place] [address] [phone] PCP - General Internal Medicine 01/28/16 Fork Lift Mechanic Relationship Specialty Start Date End Date Gonzales Goddard MD [address] [facility] [address] PCP - General Internal Medicine 01/28/16 Fork Lift Mechanic Relationship Specialty Start Date End Date Gonzales Goddard MD [address] [facility] [place] [address] PCP - General Internal Medicine 01/28/16 Team Status: Inactive Member Role Status Dates Dr. Gonzales Goddard MD Primary Care Provider Active Dr. Jeremiah Kwong DO Attending Provider, Emergency Provide r Active Team Status: Inactive Member Role Status Dates Dr. Gonzales Goddard MD Primary Care Provider Active Dr. Cristobal Brantley MD Attending Provider, Refe ing Provider Active F[employer] Lift Mechanic Relationship Specialty Start Date End Date Gonzales Goddard MD [address] [facility] [place] [address] PCP - General Internal Medicine 01/28/16 Fork Lift Mechanic Relationship Specialty Start Date End Date Gonzales Goddard MD [address] [facility] [address] PCP - General Internal Medicine 01/28/16 Fork Lift Mechanic Relationship Specialty Start Date End Date Gonzales Goddard MD [address] [facility] [place] [address] PCP - General Internal Medicine 01/28/16 Fork Lift Mechanic Relationship Specialty Start Date End Date Gonzales Goddard MD [address] [facility] [address] PCP - General Internal Medicine 01/28/16 Fork Lift Mechanic Relationship Specialty Start Date End Date Gonzales Goddard MD [address] [facility] [place] [address] PCP - General Internal Medicine 01/28/16 Team Status: Inactive Member Role Status Dates Dr. Gonzales Goddard MD Primary Care Provider Active Dr. Salvatore Valerio DO Emergency Provider Active F[employer] Lift Mechanic Relationship Specialty Start Date End Date Gonzales Goddard MD [address] [place] [address] PCP - General Internal Medicine 01/28/16 Fork Lift Mechanic Relationship Specialty Start Date End Date Gonzales Goddard MD [address] [place] [address] PCP - General Internal Medicine 01/28/16 Team Status: Inactive Member Role Status Dates Dr. Gonzales Goddard MD Primary Care Provider Active Dr. Salvatore Valerio DO Attending Provider, Emergency P ludivina Active Team Status: Inactive Member Role Status Dates Dr. Gonzales Goddard MD Primary Care Provider Active MADI SHEPPARD Attending Provider Active Fork Lift Mechanic Relationship Specialty Start Date End Date Gonzales Goddard MD [address] [place] [address] PCP - General Internal Medicine 01/28/16 Fork Lift Mechanic Relationship Specialty Start Date End Date Gonzales Goddard MD [address] [place] [address] PCP - General Internal Medicine 01/28/16 Fork Lift Mechanic Relationship Specialty Start Date End Date Gonzales Goddard MD [address] [facility] [address] PCP - General Internal Medicine 01/28/16 Fork Lift Mechanic Relationship Specialty Start Date End Date Gonzales Goddard MD [address] [place] [address] PCP - General Internal Medicine 01/28/16 Fork Lift Mechanic Relationship Specialty Start Date End Date Gonzales Goddard MD [address] [place] [address] PCP - General Internal Medicine 01/28/16 Fork Lift Mechanic Relationship Specialty Start Date End Date Gonzales Goddard MD [address] [place] [address] PCP - General Internal Medicine 01/28/16 Fork Lift Mechanic Relationship Specialty Start Date End Date Gonzales Goddard MD [address] [place], [place] [id number] PCP - General Internal Medicine 01/28/16 Aria Alex PA-C [address] [place] [address] [employer]keeping Machine Mechanic Family Medicine 01/28/24 Paige Ayala APRN.CNP [address] [place], [place] [id number] Bookkeeping Machine Mechanic Internal Medicine 01/28/24 Arlene Peters PA-C [address] [place], [place] [address] Bookkeeping Machine Mechanic [facility] 01/28/24 Goals (unrecognized section and content) Goals may be documented in a n alternate section No data available for this sectionGoals may be documented in an alternate sectionGoals may be documented in an alternate sectionGoals may be documented in an alternate sectionGoals may be documented in an alternate sectionGoals may be documented in an alternate section FOR RECORDS PERTAINING TO PATIENTS WHO ARE [...] BE BASED ON THE PRIMARY CLINICAL RECORDS. [facility] [employer] [facility]. provides no warranty or guarantee of the accuracy or completeness of information in this document.
--- NOTE | 2024-09-29 19:20 | RAD_ITS ---
PROCEDURE: CHEST PA AND LATERAL 09/29/2024 REASON FOR EXAM: COUGH TECHNIQUE: CHEST PA AND LATERAL COMPARISON: Chest radiograph 03/22/2023. FINDINGS: Hardware: None. Heart: The heart size is normal. Mediastinum: The mediastinal contour is stable. Lungs: No focal consolidation, pleural effusion or pneumothorax. Bones: The bones are unremarkable. RAD/Chest PA and Lateral IMPRESSION: NEGATIVE CHEST Reading Location: [id number]
[2024-09-29 19:29] LABS: Anion Gap 11 (5-15); BUN 12 mg/dL (4-19); BUN/Creat Ratio 16.2 RATIO (10-20); Calcium,Total 9.0 mg/dL (7.6-11.0); Carbon Dioxide 24.7 mmol/L (21.0-32.0); Chloride 104 mmol/L (98-108); Estimated Creatinine Clearance 118.90 ml/min (50-250); Glucose 93 mg/dL (70-99); Potassium 3.8 mmol/L (3.3-5.1)
[2024-09-29 19:41] LABS: Mucous, Urine 0 SEEN /hpf (<or=2+)
[2024-09-29 19:48] LABS: Color, Urine Straw (Yellow); Glucose, Dipstick Normal (Normal); Ketone-Dipstick Negative (Negative); Leukocyte Esterase-Dipstick Negative /ul (Negative); Nitrite-Dipstick Negative (Negative); Occult Blood-Urine Negative /ul (Negative); Protein-Dipstick Negative (Negative); Specific Gravity, Urine 1.015 (1.002-1.030); Urine Bilirubin Dipstick Negative (Negative)
[2024-09-29 20:09] VITALS: BP 139/116; PULSE 98; RESP 16; TEMP 37.6; O2SAT 100
[2024-09-29 20:27] LABS: Red Blood Cells-Urine 0-5 SEEN /hpf (0-5); Squamous Epithelial Cells - UA 0-5 SEEN /hpf (5-10)
[2024-09-29 21:00] VITALS: BP 120/61; PULSE 86; RESP 16; TEMP 38.3; O2SAT 98
[2024-09-29 22:00] VITALS: BP 94/76; PULSE 103; PULSE 98; RESP 16; TEMP 37.6; O2SAT 100
[2024-09-29 23:06] VITALS: BP 143/73; PULSE 92; RESP 16; TEMP 37.6; O2SAT 98
== END 2024-09-29 23:10 | disposition home or self-care (01) ==
PROVIDERS: Emergency Provider Emergency Medicine; PCP Family Medicine; Visit Provider Emergency Medicine
DX: B34.9 Viral infection, unspecified (principal); R50.9 Fever, unspecified; F17.290 Nicotine dependence, other tobacco product, uncomplicated; R51.9 Headache, unspecified; D64.9 Anemia, unspecified
CPT/HCPCS: 71046; 80048; 81001; 85025; 87631; 99283; A4216